=== PATIENT | male | born 1940 | race Caucasian/White ===

== ENCOUNTER → 2017-11-14 08:02 | Outpatient (CLI) | payer MEDICARE, SELFPAY ==
[2017-11-14 11:33] LABS: AST(SGOT) 15 U/L (15-37); Alanine Aminotransfer ALT/SGPT 27 U/L (16-61); Albumin, Serum 4.1 g/dL (3.2-5.0); Alkaline Phosphatase 112 U/L (45-117); Bilirubin, Direct 0.23 mg/dL (0.00-0.30); Cholesterol 122 mg/dL (200); Globulin 2.6 g/dL (2.2-4.2); High Density Lipoprotein 28 mg/dL; Protein, Total 6.7 g/dL (6.4-8.2); Triglycerides 121 mg/dL; Very Low Density Lipoprotein 24 mg/dL (5-40)
== END ==
PROVIDERS: Family Provider Family Medicine; PCP Family Medicine; Visit Provider Physician Assistant Medical
DX: E78.5 Hyperlipidemia, unspecified (principal); Z79.899 Other long term (current) drug therapy
CPT/HCPCS: 36415; 80061; 80076

== ENCOUNTER → 2018-05-26 08:17 | Outpatient (CLI) | payer MEDICARE, SELFPAY ==
[2018-05-26 10:25] LABS: AST(SGOT) 35 U/L (15-37); Alanine Aminotransfer ALT/SGPT 53 U/L (16-61); Albumin, Serum 3.9 g/dL (3.2-5.0); Alkaline Phosphatase 116 U/L (45-117); Bilirubin, Direct 0.24 mg/dL (0.00-0.30); Cholesterol 118 mg/dL (200); Globulin 2.4 g/dL (2.2-4.2); High Density Lipoprotein 23 mg/dL; Protein, Total 6.3 g/dL (6.4-8.2); Triglycerides 126 mg/dL; Very Low Density Lipoprotein 25 mg/dL (5-40)
== END ==
PROVIDERS: Family Provider Family Medicine; PCP Family Medicine; Visit Provider Physician Assistant Medical
DX: E78.5 Hyperlipidemia, unspecified (principal); Z79.899 Other long term (current) drug therapy
CPT/HCPCS: 36415; 80061; 80076

== ENCOUNTER → 2018-11-27 08:02 | Outpatient (CLI) | payer MEDICARE, SELFPAY ==
[2018-11-27 08:02] VITALS: BMI 32.3
[2018-11-27 10:38] LABS: AST(SGOT) 17 U/L (15-37); Alanine Aminotransfer ALT/SGPT 25 U/L (16-61); Alkaline Phosphatase 116 U/L (45-117); Bilirubin, Direct 0.25 mg/dL (0.00-0.30); Cholesterol 101 mg/dL (200); Globulin 2.6 g/dL (2.2-4.2); High Density Lipoprotein 30 mg/dL; Protein, Total 6.6 g/dL (6.4-8.2); Triglycerides 83 mg/dL; Very Low Density Lipoprotein 17 mg/dL (5-40)
== END ==
PROVIDERS: Family Provider Family Medicine; PCP Family Medicine; Referring Provider Physician Assistant Medical; Visit Provider Physician Assistant Medical
DX: E78.5 Hyperlipidemia, unspecified (principal)
CPT/HCPCS: 36415; 80061; 80076

== ENCOUNTER → 2019-07-10 07:29 | Outpatient (CLI) | payer MEDICARE, SELFPAY ==
[2018-12-01 09:18] VITALS: BMI 32.2
[2019-07-10 10:23] LABS: AST(SGOT) 14 U/L (15-37); Alanine Aminotransfer ALT/SGPT 23 U/L (16-61); Albumin, Serum 3.9 g/dL (3.2-5.0); Alkaline Phosphatase 125 U/L (45-117); Bilirubin, Direct 0.31 mg/dL (0.00-0.30); Cholesterol 106 mg/dL (200); Globulin 2.5 g/dL (2.2-4.2); High Density Lipoprotein 32 mg/dL; Protein, Total 6.4 g/dL (6.4-8.2); Triglycerides 115 mg/dL; Very Low Density Lipoprotein 23 mg/dL (5-40)
== END ==
PROVIDERS: Family Provider Family Medicine; PCP Family Medicine; Referring Provider Physician Assistant Medical; Visit Provider Physician Assistant Medical
DX: I25.10 Atherosclerotic heart disease of native coronary artery without angina pectoris (principal); E78.00 Pure hypercholesterolemia, unspecified
CPT/HCPCS: 36415; 80061; 80076

== ENCOUNTER → 2019-08-10 07:34 | Outpatient (CLI) | payer MEDICARE, SELFPAY ==
[2019-07-13 10:43] VITALS: BMI 32.1
--- NOTE | 2019-08-10 07:36 | ECHOCS_ITS ---
Reason For Study: CAD Procedure This was a 2D Doppler, Color Flow transthoracic echocardiogram. The study was technically difficult. Exam performed in department. Left Ventricle Normal LV size. Moderate eccentric left ventricular hypertrophy. The estimated ejection fraction is 55 %. Stage 1 diastolic dysfunction. Segmental dysfunction with preserved ejection fraction (see wall motion). Mid-Inferior: Hypokinetic. Infero-Basal: Hypokinetic. Basal inferoseptal: Hypokinetic. The rest of the wall segments are normal. Right Ventricle Normal RV size. Normal systolic function. Atria The left atrium is mildly enlarged. Normal right atrium. Mitral Valve Normal mitral valve. Mild (1+) eccentric mitral valve insufficiency. Tricuspid Valve The tricuspid valve is not well visualized. Unable to estimate RV systolic pressure due to insufficient tricuspid regurgitant envelope. Pulmonic Valve Normal pulmonic valve. Great Vessels Normal aortic root. The pulmonary artery is normal size. Normal inferior vena cava. Pericardium/Pleural No pericardial effusion. Medication 22 gauge I.V. with prn adaptor inserted into right arm. Diluted definity 4ml given slow IV push to enhance endocardial definition. MMode/2D Measurements & Calculations LVIDd: 4.5 cm IVSd: 1.5 cm Ao root diam: 3.9 cm LVIDs: 3.8 cm LVPWd: 0.82 cm RVDd: 3.5 cm FS: 15.6 % LAV(MOD-bp): 77.3 ml LA A4 area: 23.4 cm2 LA dimension(2D): 3.8 cm LAV(MOD-bp) Indexed: 34.9 ml/m2 LAV(MOD-sp2): 72.1 ml LAV(MOD-sp4): 75.3 ml RA A4 area: 17.0 cm2 Doppler Measurements & Calculations MV E max okry: 78.8 cm/sec Lat Peak E' Kory: 8.0 cm/sec Med Peak E' Kory: 5.6 cm/sec MV A max kory: 91.9 cm/sec E/E' lat: 9.8 E/E' med: 14.0 MV E/A: 0.86 Ao V2 max: 142.5 cm/sec LV V1 max: 107.4 cm/sec PA V2 max: 82.7 cm/sec Ao max P.1 mmHg LV V1 max P.6 mmHg Interpretation Summary Normal LV size. Moderate eccentric left ventricular hypertrophy. The estimated ejection fraction is 55 %. Stage 1 diastolic dysfunction. Segmental dysfunction with preserved ejection fraction (see wall motion). Contrast injection was performed. Compared to prior study, there is no significant change. Ordering Physician: Jose Juan Farooq Referring Physician: Jose Juan Farooq Performed By: Lula Mcdaniels RDCS
== END ==
PROVIDERS: Referring Provider Internal Medicine Cardiovascular Disease; Visit Provider Internal Medicine Cardiovascular Disease
DX: I25.10 Atherosclerotic heart disease of native coronary artery without angina pectoris (principal)
CPT/HCPCS: 93306; Q9957; A4216; C8929

== ENCOUNTER → 2021-03-02 11:19 | Outpatient (CLI) | payer MEDICARE, SELFPAY ==
[2020-12-30 09:16] VITALS: BMI 30.7
--- NOTE | 2021-03-02 11:22 | RAD_ITS ---
STUDY: X-RAY - LEFT SHOULDER REASON FOR EXAM: Male, 80 years old. Shoulder pain. TECHNIQUE: 5 view(s) of the shoulder. COMPARISON: None. FINDINGS: There is severe degenerative arthrosis of the glenohumeral articulation. There is hypertrophic osteoarthrosis of the acromioclavicular joint with inferior osseous spur formation. Normal acromion. There is no acute fracture, dislocation or destructive osseous pathology. There is demineralization of the humerus and visualized osseous structures. The soft tissue structures are unremarkable. Normal visualized pulmonary apex. RAD/Shoulder min 2 Views IMPRESSION: Osteopenia and degenerative changes of the left shoulder. Electronically Signed: Marco Antonio Browne DO at 17:04 EDT Tel [phone], Service support ,
--- NOTE | 2021-03-02 11:25 | RAD_ITS ---
STUDY: X-RAY - RIGHT SHOULDER REASON FOR EXAM: Male, 80 years old. Shoulder pain for 4 months. History of rotator cuff tear. 2010. TECHNIQUE: 4 view(s) of the shoulder. COMPARISON: None. FINDINGS: There is severe degenerative arthrosis of the glenohumeral articulation. There is mild narrowing of the acromiohumeral space. There is degenerative arthrosis of the acromioclavicular joint without inferior osseous spur formation. There is a curved undersurface of the acromion consistent with a Type II morphology. There is no acute fracture, dislocation or destructive osseous pathology. There is demineralization of the humerus and visualized osseous structures. The soft tissue structures are unremarkable. Normal visualized pulmonary apex. RAD/Shoulder min 2 Views IMPRESSION: Degenerative changes of the right shoulder as above. Electronically Signed: Marco Antonio Browne DO at 23:59 EDT Tel [phone], Service support ,
== END ==
PROVIDERS: PCP Family Medicine; Referring Provider Anesthesiology Pain Medicine; Visit Provider Anesthesiology Pain Medicine
DX: M25.511 Pain in right shoulder (principal); M25.512 Pain in left shoulder
CPT/HCPCS: 73030

== ENCOUNTER 2021-10-27 09:53 | Outpatient (CLI) | payer MEDICARE, SELFPAY ==
[2021-10-27 10:46] LABS: Amphetamine Urine VISTA NEGATIVE (<1000 ng/mL); Barbiturate Urine VISTA NEGATIVE (< 200 ng/mL); Benzodiazepine Urine VISTA NEGATIVE (< 200 ng/mL); Cocaine Urine VISTA NEGATIVE (< 300 ng/mL); Ecstacy Urine VISTA NEGATIVE (< 500 ng/mL); Methadone Urine VISTA NEGATIVE (< 300 ng/mL); PCP Urine VISTA NEGATIVE (< 25 ng/mL); THC Urine VISTA NEGATIVE (< 50 ng/mL); Vista UDS pH Range 5
== END 2021-10-27 23:59 | disposition short-term general hospital (02) ==
PROVIDERS: PCP Family Medicine; Referring Provider Anesthesiology Pain Medicine; Visit Provider Anesthesiology Pain Medicine
DX: F11.20 Opioid dependence, uncomplicated (principal)
CPT/HCPCS: 80307

== ENCOUNTER → 2022-02-16 | Outpatient (CLI) | payer MEDICARE, SELFPAY ==
--- NOTE | 2022-02-16 11:00 | RAD_ITS ---
STUDY: X-RAY - THORACIC SPINE REASON FOR EXAM: Male, 81 years old. M5.34 TECHNIQUE: 3 view(s) of the thoracic spine were obtained. COMPARISON: None. FINDINGS: There is an increase in the normal thoracic kyphosis. There is no substantial scoliosis. There is demineralization of the thoracic spine with endplate spondylosis. There is multilevel disc space narrowing of the thoracic spine. The soft tissue structures are unremarkable. RAD/Thoracic Spine 3 Views IMPRESSION: Increased kyphosis. Multilevel disc space narrowing and spondylosis. Electronically Signed: Johnnie Holguin MD at 15:13 EDT ,
== END | disposition home or self-care (01) ==
LOC: RAD 10:49
PROVIDERS: PCP Family Medicine; Referring Provider Anesthesiology Pain Medicine; Visit Provider Anesthesiology Pain Medicine
DX: M54.9 Dorsalgia, unspecified (principal)
CPT/HCPCS: 72072

== ENCOUNTER → 2022-04-09 | Outpatient (CLI) | payer MEDICARE, SELFPAY ==
--- NOTE | 2022-04-09 10:55 | MRI_ITS ---
STUDY: MRI LUMBAR SPINE WITHOUT CONTRAST REASON FOR EXAM: Male, 81 years old. LUMBAR RADICULOPATHY TECHNIQUE: Standardized fat and water weighted pulse sequences were obtained in the sagittal and axial planes. COMPARISON: None FINDINGS: T12-L1: Normal endplates. Normal disc height, hydration and morphology. Normal bilateral facet joints. Normal central canal and bilateral lateral recesses. Normal bilateral intervertebral neural foramina. Normal lumbar lordosis. Mild dextroscoliosis centered at L2/L3. Normal conus medullaris that terminates at the L1/L2. L1-2: Mild bilateral facet hypertrophy and severe ligament flavum hypertrophy. Moderate bilobed disc protrusion produces moderate spinal stenosis with moderate bilateral lateral recess stenosis with abutment of the L2 nerve roots bilaterally and mild bilateral neural foraminal stenosis. L2-3: Mild bilateral facet hypertrophy and moderate ligament flavum hypertrophy. Moderate bilobed disc protrusion produces moderate spinal stenosis with moderate bilateral lateral recess stenosis with abutment of the L3 nerve roots bilaterally and mild bilateral neural foraminal stenosis. L3-4: Severe bilateral facet hypertrophy and ligamentum flavum hypertrophy. Large broad disc protrusion produces severe spinal stenosis with severe bilateral lateral recess stenosis with effacement of the L4 nerve root bilaterally and moderate bilateral neural foraminal stenosis L4-5: Mild bilateral facet hypertrophy and ligament flavum hypertrophy. Large broad disc protrusion produces severe spinal stenosis with severe bilateral lateral recess stenosis with effacement of the L5 nerve roots bilaterally, severe right neural foraminal stenosis with effacement of the right L4 nerve root laterally and mild left neural foraminal stenosis. L5-S1: Mild bilateral facet hypertrophy and ligament flavum hypertrophy. Moderate broad disc protrusion produces moderate spinal stenosis with moderate bilateral lateral recess stenosis with abutment of the S1 nerve roots bilaterally and mild bilateral neural foraminal stenosis. Normal visualized sacral ala. Normal visualized paraspinous soft tissue structures. MRI/Spine Lumbar (Routine) IMPRESSION: Mild dextroscoliosis with degenerative disc disease as described above. Electronically Signed: Prem Hernandez MD at 13:53 EDT ,
== END | disposition home or self-care (01) ==
PROVIDERS: PCP Family Medicine; Referring Provider Anesthesiology Pain Medicine; Visit Provider Anesthesiology Pain Medicine
DX: M54.16 Radiculopathy, lumbar region (principal)
CPT/HCPCS: 72148

== ENCOUNTER → 2023-01-05 | Outpatient (CLI) | payer MEDICARE, SELFPAY ==
[2023-01-05 11:39] LABS: Amphetamine Urine VISTA NEGATIVE (<1000 ng/mL); Barbiturate Urine VISTA NEGATIVE (< 200 ng/mL); Benzodiazepine Urine VISTA NEGATIVE (< 200 ng/mL); Cocaine Urine VISTA NEGATIVE (< 300 ng/mL); Ecstacy Urine VISTA NEGATIVE (< 500 ng/mL); Methadone Urine VISTA NEGATIVE (< 300 ng/mL); PCP Urine VISTA NEGATIVE (< 25 ng/mL); THC Urine VISTA NEGATIVE (< 50 ng/mL); Vista UDS pH Range 5
== END | disposition home or self-care (01) ==
LOC: LAB 10:40
PROVIDERS: PCP Family Medicine; Referring Provider Anesthesiology Pain Medicine; Visit Provider Anesthesiology Pain Medicine
DX: F11.20 Opioid dependence, uncomplicated (principal)
CPT/HCPCS: 80307

== ENCOUNTER → 2023-10-24 | Outpatient (CLI) | payer MEDICARE, SELFPAY ==
[2023-10-24 16:38] LABS: Amphetamine Urine VISTA NEGATIVE (<1000 ng/mL); Barbiturate Urine VISTA NEGATIVE (< 200 ng/mL); Benzodiazepine Urine VISTA NEGATIVE (< 200 ng/mL); Cocaine Urine VISTA NEGATIVE (< 300 ng/mL); Ecstacy Urine VISTA NEGATIVE (< 500 ng/mL); Methadone Urine VISTA NEGATIVE (< 300 ng/mL); PCP Urine VISTA NEGATIVE (< 25 ng/mL); THC Urine VISTA NEGATIVE (< 50 ng/mL); Vista UDS pH Range 5
== END | disposition home or self-care (01) ==
PROVIDERS: PCP Family Medicine; Referring Provider Anesthesiology Pain Medicine; Visit Provider Anesthesiology Pain Medicine
DX: F11.20 Opioid dependence, uncomplicated (principal)
CPT/HCPCS: 80307

== ENCOUNTER 2024-01-11 07:54 | Outpatient (RCR) | payer MEDICARE, SELFPAY ==
[2024-01-11 08:09] VITALS: BP 119/49; PULSE 67; RESP 20; TEMP 35.8; BMI 31.6
--- NOTE | 2024-01-18 10:27 | PCM.WC.HP ---
History of Present Illness Date of Service: 01/11/24 Chief Complaint: Follow-up on buttocks right and left wounds that have been going on for months. 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 He lays on his chair most of the day. And has developed 2 areas on his buttocks sores that have gotten bigger and they have been trying to close for months. Currently there is been using antibiotic ointment. Also has tried Silvadene creams and other things through his doctor Now he has been referred here to the wound center [facility] Medical History Atherosclerotic heart disease of [place] coronary artery without angina pectoris Essential (primary) hypertension Gout HLD (hyperlipidemia) Hyperlipidemia Left ventricular hypertrophy Lymphoid leukemia Obesity Old inferior wall myocardial infarction (2000) Osteoarthritis Thrombocytopenic disorder Type 2 diabetes mellitus Home Medications allopurinol 300 mg tablet 300 mg PO DAILY 09/20/13 [History Last Taken Unknown] aspirin 81 mg chewable tablet 81 mg PO DAILY@0800 09/20/13 [History Last Taken Unknown] lorazepam 1 mg tablet 1 mg PO QHS 09/20/13 [History Last Taken Unknown] meloxicam 15 mg tablet 15 mg PO DAILY 09/20/13 [History Last Taken Unknown] multivitamin with folic acid 400 mcg tablet 1 tab PO DAILY 09/20/13 [History Last Taken Unknown] pyridoxine (vitamin B6) 100 mg tablet 100 mg PO DAILY 09/20/13 [History Last Taken Unknown] tramadol 50 mg tablet 50 mg PO Q4H PRN PRN Pain 09/20/13 [History Last Taken Unknown] famotidine 20 mg tablet (Acid Interactive Media Project Manager (famotidine)) 20 mg PO DAILY 12/01/18 [History Last Taken Unknown] ibrutinib 420 mg tablet (Imbruvica) 420 mg PO DAILY 12/01/18 [History Last Taken Unknown] loratadine 10 mg capsule 10 mg PO DAILY 12/01/18 [History Last Taken Unknown] cholecalciferol (vitamin D3) 25 mcg (1,000 unit) tablet 25 mcg PO DAILY 12/30/20 [History Last Taken Unknown] metformin 500 mg tablet,extended release 24 hr 500 mg PO BID 12/30/20 [History Last Taken Unknown] gabapentin 600 mg tablet 600 mg PO TID 07/13/22 [History Last Taken Unknown] lisinopril 10 mg tablet 10 mg PO DAILY #90 tabs 11/03/23 [Rx Last Taken Unknown] metoprolol succinate 25 mg tablet,extended release 24 hr 25 mg PO DAILY #90 tabs 11/03/23 [Rx Last Taken Unknown] nitroglycerin 0.4 mg sublingual tablet 0.4 mg sublingual Q5M PRN chest pain #25 tabs 11/03/23 [Rx Last Taken Unknown] simvastatin 20 mg tablet 20 mg PO DAILY #90 tabs 11/03/23 [Rx Last Taken Unknown] tamsulosin 0.4 mg capsule (Flomax) 0.4 mg PO DAILY 01/11/24 [History Last Taken Unknown] Allergy/AdvReac Type Severity Reaction Status Date / Time niacin Allergy Unknown Verified 11/03/23 09:58 [From Niaspan Extended-Release] Sulfa (Sulfonamide AdvReac Swelling Verified 11/03/23 09:58 Antibiotics) Family History Father Cancer lymphoma Myocardial infarction CAD (coronary artery disease) Mother CVA (cerebral vascular accident) Cancer HLD (hyperlipidemia) Hypertension Brother Myocardial infarction CAD (coronary artery disease) Sister Breast cancer Surgical History H/O arthroscopic knee surgery History of coronary artery stent placement (05/13/10) History of lithotripsy History of repair of rotator cuff Social History Smoking Status: Never smoker alcohol intake: former substance use type: does not use caffeine: No what type of physical activity do you participate in: none seatbelt use: always do you feel safe at home: Yes ROS Constitutional Constitutional: Reports systems reviewed and no addt'l complaints, except as documented Eyes Eyes: Reports systems reviewed and no addt'l complaints, except as documented ENT HEENT: Reports systems reviewed and no addt'l complaints, except as documented Cardiovascular Cardiovascular: Reports systems reviewed and no addt'l complaints, except as documented Respiratory/Chest Respiratory/Chest: Reports systems reviewed and no addt'l complaints, except as documented Gastrointestinal Gastrointestinal: Reports systems reviewed and no addt'l complaints, except as documented Genitourinary Genitourinary: Reports systems reviewed and no addt'l complaints, except as documented Musculoskeletal Musculoskeletal: Reports systems reviewed and no addt'l complaints, except as documented Integumentary Integumentary: Reports wounds and other Details: 2 open wounds [id number] on his lower buttocks sacral area. Neurologic Neurologic: Reports systems reviewed and no addt'l complaints, except as documented Psychiatric Psychiatric: Reports systems reviewed and no addt'l complaints, except as documented Endocrine Endocrinology: Reports systems reviewed and no addt'l complaints, except as documented Hematologic/Lymphatic Hematologic/Lymphatic: Reports systems reviewed and no addt'l complaints, except as documented Allergic/Immunologic Allergic/Immunologic: Reports systems reviewed and no addt'l complaints, except as documented Vital Signs Vital Signs Vital Signs: Weight Weight: 220 lb 0.271 oz Body Mass Index (BMI) 31.6 Physical Exam Const oriented x3 General Appearance: cooperative Exam Limitations: no limitations HEENT normocephalic Eyes General Eye: normal appearance of both eyes Resp normal respiratory effort Effort and Inspection: able to speak in complete sentences Auscultation: clear to auscultation bilaterally Cardio regular rate and regular rhythm Palpation: normal PMI Rate: regular rate Rhythm: regular rhythm Back/Spine Cervical Spine: cervical ROM normal Thoracic Spine / Upper Back: normal to inspection Lumbar Spine / Lower Back: normal to inspection Pelvis: buttocks abnormal and other soft tissue findings Open wounds bilateral buttocks Extremity normal to inspection General Extremity: normal exam except as noted Skin Skin Narrative: Open wounds on buttocks clean well marcated Wound Narrative: Stage II Neuro oriented x3 Debridement Note Debridement Note Wound debrided: Sacral wounds cluster Wound Grade/Stage: Stage II Type of Debridement: Excisional debridement Anesthesia Used: 5% Lidocaine Gel and Cetacaine Depth: Down to and including healthy tissue and in the subcutaneous layer Percentage of wound debrided: 100 Instrument Used: 5mm curette Tissue Removed: Fibrin Severity: Fat Layer Exposed Amount of bleeding with debridement: Mild Bleeding Controlled with: Compression and gauze Patient tolerated procedure: Patient tolerated procedure well Assessment/Plan Assessment/Plan (1) Mobility impaired: CODE(S): Z74.09 - Other reduced mobility (2) Decubitus ulcer of buttock, stage 2: CODE(S): L89.302 - Pressure ulcer of unspecified buttock, stage 2 QUALIFIERS: Laterality: unspecified laterality Qualified Code(s): L89.302 - Pressure ulcer of unspecified buttock, stage 2 PLAN: Wash buttocks with antibacterial soap. Apply Fibracol to wound base cover with Adaptic and absorbent dressing every day Follow-up in 1 week (3) Type 2 diabetes mellitus: CODE(S): E11.9 - Type 2 diabetes mellitus without complications QUALIFIERS: Diabetes mellitus intermediate accountant insulin use: without halfway use Diabetes mellitus complication status: with circulatory complication Diabetes mellitus complication detail: with other circulatory complications Qualified Code(s): E11.59 - Type 2 diabetes mellitus with other circulatory complications (4) Lymphoid leukemia: CODE(S): C91.90 - Lymphoid leukemia, 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 QUALIFIERS: Lymphoid leukemia type: unspecified lymphoid Leukemia Active/Remission status: without remission Qualified Code(s): C91.90 - Lymphoid leukemia, 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
--- NOTE | 2024-01-18 11:04 | PN.PCM_ITS ---
History of Present Illness Date of Service: 01/18/24 Chief Complaint: Follow-up on buttocks right and left wounds that have been going on for months. 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 He lays on his ch air most of the day. And has developed 2 areas on his buttocks sores that have gotten bigger and they have been trying to close for months. Currently there is been using antibiotic ointment. Also has tried Silvadene creams and other things through his doctor Now he has been referred here to the wound center Progress of Wound: The areas on the buttocks are about the same is complaining she is having a hard time getting the absorbent dressings to stay. No sign of infections no sign of any issues. We will obtain cultures today to make sure that were not missing anything that is stopping healing. Skin surrounding the area is supple and of normal color no sign of infections Subjective Subjective Agreeable to plan we will try to find a better sticking agent for the dressing Objective Data Objective Data Will try a better sticking agent for dressings otherwise patient will continue with the Fibracol seems to be working well for them have them follow-up in 1 week Obtain cultures this week we will call with results Vital Signs: Vital Signs Temp Pulse Resp BP 96.5 F L 67 20 H 119/49 L 01/11/24 08:09 01/11/24 08:09 01/11/24 08:09 01/11/24 08:09 Weight: 220 lb 0.271 oz Body Mass Index (BMI) 31.6 Physical Exam Const oriented x3 General Appearance: cooperative Exam Limitations: no limitations HEENT normocephalic Eyes General Eye: normal appearance of both eyes Resp normal respiratory effort Effort and Inspection: able to speak in complete sentences Auscultation: clear to auscultation bilaterally Cardio regular rate and regular rhythm Palpation: normal PMI Rate: regular rate Rhythm: regular rhythm Back/Spine Cervical Spine: cervical ROM normal Thoracic Spine / Upper Back: normal to inspection Lumbar Spine / Lower Back: normal to inspection Pelvis: buttocks abnormal and other soft tissue findings Open wounds bilateral buttocks Extremity normal to inspection General Extremity: normal exam except as noted Skin Skin Narrative: Open wounds on buttocks clean well marcated Wound Narrative: Stage II Neuro oriented x3 Debridement Note Debridement Note Wound debrided: Cluster buttocks sacral stage II wounds Wound Grade/Stage: Stage II Type of Debridement: Excisional debridement Anesthesia Used: 5% Lidocaine Gel Depth: in the subcutaneous layer Percentage of wound debrided: 100 Instrument Used: 5mm curette Tissue Removed: Fibrin Severity: Limited To Skin Breakdown Amount of bleeding with debridement: Mild Bleeding Controlled with: Compression and gauze Patient tolerated procedure: Patient tolerated procedure well Assessment/Plan Assessment/Plan (1) Mobility impaired: CODE(S): Z74.09 - Other reduced mobility (2) Decubitus ulcer of buttock, stage 2: CODE(S): L89.302 - Pressure ulcer of unspecified buttock, stage 2 QUALIFIERS: Laterality: unspecified laterality Qualified Code(s): L89.302 - Pressure ulcer of unspecified buttock, stage 2 PLAN: Wash buttocks with antibacterial soap. Apply Fibracol to wound base cover with Adaptic and absorbent dressing every day Follow-up in 1 week Cultures obtained will call with results (3) Type 2 diabetes mellitus: CODE(S): E11.9 - Type 2 diabetes mellitus without complications QUALIFIERS: Diabetes mellitus long term acute care registered nurse insulin use: without fci use Diabetes mellitus complication status: with circulatory complication Diabetes mellitus complication detail: with other circulatory complications Qualified Code(s): E11.59 - Type 2 diabetes mellitus with other circulatory complications (4) Lymphoid leukemia: CODE(S): C91.90 - Lymphoid leukemia, 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 QUALIFIERS: Lymphoid leukemia type: unspecified lymphoid Leukemia Active/Remission status: without remission Qualified Code(s): C91.90 - Lymphoid leukemia, 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
--- NOTE | 2024-01-20 11:16 | WC ---
3.27.24 SACRAL CLUSTER INITIAL
== END 2024-01-15 23:59 | disposition home or self-care (01) ==
LOC: WC 07:54
PROVIDERS: PCP Family Medicine; Referring Provider Family Medicine; Visit Provider Nurse Practitioner
DX: L89.312 Pressure ulcer of right buttock, stage 2 (principal); L89.322 Pressure ulcer of left buttock, stage 2; C91.90 Lymphoid leukemia, unspecified not having achieved remission; E11.51 Type 2 diabetes mellitus with diabetic peripheral angiopathy without gangrene; E78.5 Hyperlipidemia, unspecified; I25.10 Atherosclerotic heart disease of native coronary artery without angina pectoris; M10.9 Gout, unspecified; Z79.84 Long term (current) use of oral hypoglycemic drugs; I10 Essential (primary) hypertension; Z79.82 Long term (current) use of aspirin; Z79.899 Other long term (current) drug therapy
CPT/HCPCS: 11042; 99203; G0463

== ENCOUNTER 2024-02-08 09:45 | Outpatient (RCR) | payer MEDICARE, SELFPAY ==
[2024-01-16 00:52] VITALS: BP 119/49; PULSE 67; RESP 20; TEMP 35.8; BMI 31.6
[2024-01-18 09:37] VITALS: BP 128/55; PULSE 73; RESP 20; TEMP 36.4; BMI 31.6
--- NOTE | 2024-01-18 10:22 | PN.PCM_ITS ---
History of Present Illness Date of Service: 01/18/24 Objective Data Objective Data Vital Signs: Vital Signs Temp Pulse Resp BP 97.6 F L 73 20 H 128/55 H 01/18/24 09:37 01/18/24 09:37 01/18/24 09:37 01/18/24 09:37 Weight: 220 lb 0.271 oz Body Mass Index (BMI) 31.6 Debridement Note Debridement Note Post-Debridement Measurements and Additional Note: Post-Debridement Measurements/Treatment WC - Nurse 1 - General Ulcer Assessment Start: 01/18/24 09:37 Freq: Status: Active Protocol: CHEL Activity Type Activity Date Activity User E-sign Co-sign Detail Recorded Client Recorded Date Recorded By Document 01/18/24 09:37 DL Desktop 01/18/24 09:43 DL 01/18/24 09:37 WC - Today's Visit Information Type of service Follow-up Visit (Physician/BLOW DOWN OPERATOR ) Arrival Mode Wheelchair Transfer Assistance Manual Transfer Assist (Other) x2 Patient Identification Verified (Name & Yes ) Patient Requires Transmission-Based No Precautions Finger Stick Blood Sugar(mg/dl) (if 90 indicated): Blood Sugar Stated by Patient Height and Weight Body Mass Index (BMI) 31.6 BMI Classification Obese Vital Signs Temperature (97.8 F-99.1 F) 97.6 F L Temperature Source Temporal Pulse Rate (60-100) 73 Pulse Location Monitor Respiratory Rate (12-18) 20 H Respiratory rate source Observation Blood Pressure (90/60-120/80) 128/55 H Blood Pressure Mean (mm Hg) 79 Source Monitor History Since Last Visit- (Skip if this is Patient's initial visit) Have you changed medications since your No last visit? Any new allergies or adverse reactions No Had a fall/change in ADL's that may No increase risk of falls Signs or symptoms of abuse and/or No neglect since last visit Have you been in the hospital since your No last visit? Has dressing in place as prescribed Yes Has compression in place as prescribed N/A Has offloadiing in place as prescribed Yes Experienced any changes in pain level or No management Pain Scale: 0-10 Numeric Is Patient Pain Free? Yes - Nurse 1 - General Ulcer Measurement Start: 01/18/24 09:37 Freq: Status: Active Protocol: Activity Type Activity Date Activity User E-sign Co-sign Detail Recorded Client Recorded Date Recorded By Document 01/18/24 09:37 DL Desktop 01/18/24 09:43 DL 01/18/24 09:37 Wound Center Nurse 1 #1 Sacral Cluster -Current Size (cm) - Length 1.7 -Current Size (cm) - Width 3.6 -Current Size (cm) - Depth 0.1 -Total Square Cm 6.12 -Photo Taken Yes -Exudate Amt Medium -Exudate Type Serosanguineous -Wound Margin Distinct, Outline Attached -Granulation Amt Large (67-100%) -Granulation Quality [place] -Necrosis Amt None Present (0 %) -Structure Exposed N/A -Texture (Andreea-wound Skin Appearance) Scarring -Moisture (Andreea-wound Skin Appearance) No Abnormality -Color (Andreea-wound Skin Appearance) No Abnormality -Temperature (Andreea-wound Skin No Abnormality Appearance) (Pt Warm) -Ulcer Cleansing Soap and Water -Foul Odor after Cleansing No -Anesthetic Used 5% Lidocaine Gel WC - Nurse 2 - General Ulcer CM Notes Start: 01/18/24 09:37 Freq: Status: Active Protocol: Activity Type Activity Date Activity User E-sign Co-sign Detail Recorded Client Recorded Date Recorded By Document 01/18/24 09:47 MW Desktop 01/18/24 09:55 MW 01/18/24 09:47 Wound Center Nurse 2 -Time 09:47 -Correct Patient Yes -Correct Side, Site, Position Yes -Correct Procedure Yes -Procedure Performed Yes -Type of Procedure Debridement -Clinical Debridement Subcutaneous -Tissue Removed Subcutaneous -Post Debridement (cm) - Length 1.5 -Post Debridement (cm) - Width 4.0 -Post Debridement (cm) - Depth 0.1 -Total Square (Post) (cm) 6.00 -Area of Debridement (cm) - Length 1.5 -Area of Debridement (cm) - Width 4.0 -Total Square (Area) (cm) 6.00 -Tunneling No -Undermining/Tunneling No -Circular Undermining No -Wound/Ulcer Outcome Not Healed -Ulcer Cleansing Rinsed/ Irrigated with Saline -Foul Odor after Cleansing No -Bioengineered Tissue No -Bleeding Controlled with Pressure -Treatment Response Procedure Tolerated Well -Offloading No -Debridement - Subq, 1st 20sq cm Yes Pain Scale: 0-10 Numeric Is Patient Pain Free? Yes
[2024-01-25 09:33] VITALS: BP 126/58; PULSE 65; RESP 16; TEMP 35.5; BMI 31.6
--- NOTE | 2024-01-25 12:13 | PCM.WC.PN ---
History of Present Illness Date of Service: 01/25/24 Chief Complaint: Follow-up on buttocks right and left wounds that have been going on for months. 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 He lays on his chair most of the day. And has developed 2 areas on his buttocks sores that have gotten bigger and they have been trying to close for months. Currently there is been using antibiotic ointment. Also has tried Silvadene creams and other things through his doctor Now he has been referred here to the wound center Progress of Wound: The buttocks wounds or not moving we cultured and they came back positive for staph infection we will start him on Maurice avoid twice a day for 14 days. Will continue using the Fibracol with Adaptic and absorbent dressings Subjective Subjective Patient is agreeable to plan Objective Data Objective Data Some redness around the area but no depth to the wounds measurements are the same exactly from last week no real change in appearance. Vital Signs: Vital Signs Temp Pulse Resp BP O2 Del Method 96 F L 65 16 126/58 H Room Air 01/25/24 09:33 01/25/24 09:33 01/25/24 09:33 01/25/24 09:33 01/25/24 09:33 Oxygen Delivery Method Room Air Weight: 220 lb 0.271 oz Body Mass Index (BMI) 31.6 Lab / Micro Data Attestation: I reviewed the patient's lab results. Micro: Microbiology 01/18/24 09:50 Wound Abcess - Sacral Gram Stain - Final 01/18/24 09:50 Wound Abcess - Sacral Wound Culture - Final Staphylococcus epidermidis 01/18/24 09:50 Wound Abcess - Sacral Anaerobic Culture - Final No anaerobic bacteria isolated. Physical Exam Const oriented x3 General Appearance: cooperative Exam Limitations: no limitations HEENT normocephalic Eyes General Eye: normal appearance of both eyes Resp normal respiratory effort Effort and Inspection: able to speak in complete sentences Auscultation: clear to auscultation bilaterally Cardio regular rate and regular rhythm Palpation: normal PMI Rate: regular rate Rhythm: regular rhythm Back/Spine Cervical Spine: cervical ROM normal Thoracic Spine / Upper Back: normal to inspection Lumbar Spine / Lower Back: normal to inspection Pelvis: buttocks abnormal and other soft tissue findings Open wounds bilateral buttocks Extremity normal to inspection General Extremity: normal exam except as noted Skin Skin Narrative: Open wounds on buttocks clean well marcated Wound Narrative: Stage II Neuro oriented x3 Debridement Note Debridement Note Wound debrided: Cluster buttocks sacral stage II wounds Wound Grade/Stage: Stage II Type of Debridement: Excisional debridement Anesthesia Used: 5% Lidocaine Gel Depth: in the subcutaneous layer Percentage of wound debrided: 100 Instrument Used: 5mm curette Tissue Removed: Fibrin Severity: Limited To Skin Breakdown Amount of bleeding with debridement: Mild Bleeding Controlled with: Compression and gauze Patient tolerated procedure: Patient tolerated procedure well Post-Debridement Measurements and Additional Note: Post-Debridement Measurements/Treatment - Nurse 1 - General Ulcer Assessment Start: 01/18/24 09:37 Freq: Status: Active Protocol: CHEL Activity Type Activity Date Activity User E-sign Co-sign Detail Recorded Client Recorded Date Recorded By Document 01/18/24 09:37 DL Desktop 01/18/24 09:43 DL Document 01/25/24 09:33 BMF Desktop 01/25/24 09:39 BMF 01/18/24 01/25/24 09:37 09:33 - Today's Visit Information Type of service Follow-up Visit Follow-up Visit (Physician/CAPACITOR PACK PRESS OPERATOR (Physician/CAPACITOR PACK PRESS OPERATOR ) ) Arrival Mode Wheelchair Wheelchair Transfer Assistance Manual Other Transfer Assist (Other) x2 1 STAND BY Patient Identification Verified (Name & Yes Yes ) Patient Requires Transmission-Based No No Precautions Finger Stick Blood Sugar(mg/dl) (if 90 indicated): Blood Sugar Stated by Patient Height and Weight Body Mass Index (BMI) 31.6 31.6 BMI Classification Obese Obese Vital Signs Temperature (97.8 F-99.1 F) 97.6 F L 96 F L Temperature Source Temporal Temporal Pulse Rate (60-100) 73 65 Pulse Location Monitor Monitor Respiratory Rate (12-18) 20 H 16 Respiratory rate source Observation Observation Oxygen Delivery Method Room Air Blood Pressure (90/60-120/80) 128/55 H 126/58 H Blood Pressure Mean (mm Hg) 79 80 Source Monitor Monitor Position Sitting Blood Pressure Location Left Arm History Since Last Visit- (Skip if this is Patient's initial visit) Have you changed medications since your No No last visit? Any new allergies or adverse reactions No No Had a fall/change in ADL's that may No No increase risk of falls Signs or symptoms of abuse and/or No No neglect since last visit Have you been in the hospital since your No No last visit? Has dressing in place as prescribed Yes Yes Has compression in place as prescribed N/A N/A Has offloadiing in place as prescribed Yes N/A Experienced any changes in pain level or No No management Left Footwear Regular Shoe Right Footwear Regular Shoe Pain Scale: 0-10 Numeric Is Patient Pain Free? Yes Yes WC - Nurse 1 - General Ulcer Measurement Start: 01/18/24 09:37 Freq: Status: Active Protocol: Activity Type Activity Date Activity User E-sign Co-sign Detail Recorded Client Recorded Date Recorded By Document 01/18/24 09:37 DL Desktop 01/18/24 09:43 DL Document 01/25/24 09:33 BMF Desktop 01/25/24 09:39 BMF 01/18/24 01/25/24 09:37 09:33 Wound Center Nurse 1 #1 Sacral Cluster -Current Size (cm) - Length 1.7 2.2 -Current Size (cm) - Width 3.6 2.2 -Current Size (cm) - Depth 0.1 0.1 -Total Square Cm 6.12 4.84 -Photo Taken Yes -Exudate Amt Medium Small -Exudate Type Serosanguineous Serosanguineous -Wound Margin Distinct, Distinct, Outline Outline Attached Attached -Granulation Amt Large (67-100%) Large (67-100%) -Granulation Quality [place] Red -Necrosis Amt None Present (0 Small (1-33%) %) -Necrotic Tissue Type Adherent Slough -Structure Exposed N/A -Texture (Andreea-wound Skin Appearance) Scarring Assessed -Moisture (Andreea-wound Skin Appearance) No Abnormality Assessed -Color (Andreea-wound Skin Appearance) No Abnormality Assessed -Temperature (Andreea-wound Skin No Abnormality No Abnormality Appearance) (Pt Warm) (Pt Warm) -Tenderness on Palpation (Andreea-wound No Skin Appearance) -Ulcer Cleansing Soap and Water Rinsed/ Irrigated with Saline -Foul Odor after Cleansing No No -Anesthetic Used 5% Lidocaine 5% Lidocaine Gel Gel SHAYLA - Nurse 2 - General Ulcer CM Notes Start: 01/18/24 09:37 Freq: Status: Active Protocol: Activity Type Activity Date Activity User E-sign Co-sign Detail Recorded Client Recorded Date Recorded By Document 01/18/24 09:47 MW Desktop 01/18/24 09:55 MW Document 01/25/24 09:56 MW Desktop 01/25/24 10:02 MW 01/18/24 01/25/24 09:47 09:56 Wound Center Nurse 2 #1 Sacral Cluster -Time 09:47 09:56 -Correct Patient Yes Yes -Correct Side, Site, Position Yes Yes -Correct Procedure Yes Yes -Procedure Performed Yes Yes -Type of Procedure Debridement Debridement -Clinical Debridement Subcutaneous Subcutaneous -Tissue Removed Subcutaneous Subcutaneous -Post Debridement (cm) - Length 1.5 1.5 -Post Debridement (cm) - Width 4.0 3.8 -Post Debridement (cm) - Depth 0.1 0.1 -Total Square (Post) (cm) 6.00 5.70 -Area of Debridement (cm) - Length 1.5 1.5 -Area of Debridement (cm) - Width 4.0 3.8 -Total Square (Area) (cm) 6.00 5.70 -Tunneling No No -Undermining/Tunneling No No -Circular Undermining No No -Wound/Ulcer Outcome Not Healed Not Healed -Ulcer Cleansing Rinsed/ Rinsed/ Irrigated with Irrigated with Saline Saline -Foul Odor after Cleansing No No -Bioengineered Tissue No No -Bleeding Controlled with Pressure Pressure -Treatment Response Procedure Procedure Tolerated Well Tolerated Well -Offloading No No -Debridement - Subq, 1st 20sq cm Yes Yes Pain Scale: 0-10 Numeric Is Patient Pain Free? Yes Yes - Nurse 3 - General Ulcer D/C NN Start: 01/18/24 09:37 Freq: Status: Active Protocol: Activity Type Activity Date Activity User E-sign Co-sign Detail Recorded Client Recorded Date Recorded By Document 01/25/24 10:07 [facility] Desktop 01/25/24 10:08 [facility] 01/25/24 10:07 Wound Care Center Nurse 3 #1 Sacral Cluster -Ulcer Cleansing Rinsed/ Irrigated with Saline -Foul Odor after Cleansing No -Primary Dressing Applied Fibracol Plus 4x4,Mepilex Border -Fibracol Plus 4x4 1 -Mepilex Border 1 Treatment Response Procedure Tolerated Well Pain Scale: 0-10 Numeric Is Patient Pain Free? Yes WC - Visit Discharge Discharge Condition Stable Ambulatory Status Wheelchair Transportation Private Auto Accompanied by DROPPED OFF Assessment/Plan Assessment/Plan (1) Mobility impaired: CODE(S): Z74.09 - Other reduced mobility (2) Decubitus ulcer of buttock, stage 2: CODE(S): L89.302 - Pressure ulcer of unspecified buttock, stage 2 QUALIFIERS: Laterality: unspecified laterality Qualified Code(s): L89.302 - Pressure ulcer of unspecified buttock, stage 2 PLAN: Wash buttocks with antibacterial soap. Apply Fibracol to wound base cover with Adaptic and absorbent dressing every day Follow-up in 1 week Take linezolid 600 mg 1 p.o. 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
[2024-02-01 09:54] VITALS: BP 121/59; PULSE 66; RESP 16; TEMP 35.7; BMI 31.6
--- NOTE | 2024-02-01 10:20 | PCM.WC.PN ---
History of Present Illness Date of Service: 02/01/24 Chief Complaint: Follow-up on buttocks right and left wounds that have been going on for months. 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 He lays on his chair most of the day. And has developed 2 areas on his buttocks sores that have gotten bigger and they have been trying to close for months. Currently there is been using antibiotic ointment. Also has tried Silvadene creams and other things through his doctor Now he has been referred here to the wound center Progress of Wound: The buttocks wounds or not moving we cultured and they came back positive for staph infection we will start him on Linsolide avoid twice a day for 14 days. Will continue using the Fibracol with Adaptic and absorbent dressings Subjective Subjective Finally getting skin buds looking good patient agreeable with plan so his Objective Data Objective Data Area is much smaller and getting skin buds looks clean still on his antibiotic nursing home through hoping that he will amount next couple weeks. Vital Signs: Vital Signs Temp Pulse Resp BP O2 Del Method 96.3 F L 66 16 121/59 H Room Air 02/01/24 09:54 02/01/24 09:54 02/01/24 09:54 02/01/24 09:54 02/01/24 09:54 Oxygen Delivery Method Room Air Weight: 220 lb 0.271 oz Body Mass Index (BMI) 31.6 Lab / Micro Data Micro: Microbiology 01/18/24 09:50 Wound Abcess - Sacral Gram Stain - Final 01/18/24 09:50 Wound Abcess - Sacral Wound Culture - Final Staphylococcus epidermidis 01/18/24 09:50 Wound Abcess - Sacral Anaerobic Culture - Final No anaerobic bacteria isolated. Physical Exam Const oriented x3 General Appearance: cooperative Exam Limitations: no limitations HEENT normocephalic Eyes General Eye: normal appearance of both eyes Resp normal respiratory effort Effort and Inspection: able to speak in complete sentences Auscultation: clear to auscultation bilaterally Cardio regular rate and regular rhythm Palpation: normal PMI Rate: regular rate Rhythm: regular rhythm Back/Spine Cervical Spine: cervical ROM normal Thoracic Spine / Upper Back: normal to inspection Lumbar Spine / Lower Back: normal to inspection Pelvis: buttocks abnormal and other soft tissue findings Open wounds bilateral buttocks Extremity normal to inspection General Extremity: normal exam except as noted Skin Skin Narrative: Open wounds on buttocks clean well marcated Wound Narrative: Stage II Neuro oriented x3 Debridement Note Debridement Note Wound debrided: Cluster buttocks sacral stage II wounds Wound Grade/Stage: Stage II Type of Debridement: Excisional debridement Anesthesia Used: 5% Lidocaine Gel Depth: in the subcutaneous layer Percentage of wound debrided: 100 Instrument Used: 5mm curette Tissue Removed: Fibrin Severity: Limited To Skin Breakdown Amount of bleeding with debridement: Mild Bleeding Controlled with: Compression and gauze Patient tolerated procedure: Patient tolerated procedure well Post-Debridement Measurements and Additional Note: Post-Debridement Measurements/Treatment - Nurse 1 - General Ulcer Assessment Start: 01/18/24 09:37 Freq: Status: Active Protocol: CHEL Activity Type Activity Date Activity User E-sign Co-sign Detail Recorded Client Recorded Date Recorded By Document 01/18/24 09:37 DL Desktop 01/18/24 09:43 DL Document 01/25/24 09:33 BMF Desktop 01/25/24 09:39 BMF Document 02/01/24 09:54 BMF Desktop 02/01/24 10:00 BMF 01/18/24 01/25/24 02/01/24 09:37 09:33 09:54 - Today's Visit Information Type of service Follow-up Visit Follow-up Visit Follow-up Visit (Physician/AIRCRAFT DETAIL DRAFTSPERSON (Physician/AIRCRAFT DETAIL DRAFTSPERSON (Physician/AIRCRAFT DETAIL DRAFTSPERSON ) ) ) Arrival Mode Wheelchair Wheelchair Wheelchair Transfer Assistance Manual Other Other Transfer Assist (Other) x2 1 STAND BY standby Accompanied by Patient Identification Verified (Name & Yes Yes Yes ) Patient Requires Transmission-Based No No No Precautions Finger Stick Blood Sugar(mg/dl) (if 90 indicated): Blood Sugar Stated by Patient Height and Weight Body Mass Index (BMI) 31.6 31.6 31.6 BMI Classification Obese Obese Obese Vital Signs Temperature (97.8 F-99.1 F) 97.6 F L 96 F L 96.3 F L Temperature Source Temporal Temporal Temporal Pulse Rate (60-100) 73 65 66 Pulse Location Monitor Monitor Monitor Respiratory Rate (12-18) 20 H 16 16 Respiratory rate source Observation Observation Observation Oxygen Delivery Method Room Air Room Air Blood Pressure (90/60-120/80) 128/55 H 126/58 H 121/59 H Blood Pressure Mean (mm Hg) 79 80 79 Source Monitor Monitor Monitor Position Sitting Sitting Blood Pressure Location Left Arm Right Arm History Since Last Visit- (Skip if this is Patient's initial visit) Have you changed medications since your No No No last visit? Any new allergies or adverse reactions No No No Had a fall/change in ADL's that may No No No increase risk of falls Signs or symptoms of abuse and/or No No No neglect since last visit Have you been in the hospital since your No No No last visit? Has dressing in place as prescribed Yes Yes Yes Has compression in place as prescribed N/A N/A N/A Has offloadiing in place as prescribed Yes N/A N/A Experienced any changes in pain level or No No No management Left Footwear Regular Shoe Diabetic Shoe Right Footwear Regular Shoe Diabetic Shoe Pain Scale: 0-10 Numeric Is Patient Pain Free? Yes Yes Yes WC - Nurse 1 - General Ulcer Measurement Start: 01/18/24 09:37 Freq: Status: Active Protocol: Activity Type Activity Date Activity User E-sign Co-sign Detail Recorded Client Recorded Date Recorded By Document 01/18/24 09:37 DL Desktop 01/18/24 09:43 DL Document 01/25/24 09:33 BMF Desktop 01/25/24 09:39 BMF Document 02/01/24 09:54 BMF Desktop 02/01/24 10:00 BMF 01/18/24 01/25/24 02/01/24 09:37 09:33 09:54 Wound Center Nurse 1 #1 Sacral Cluster -Combined with other wound No -Current Size (cm) - Length 1.7 2.2 1.2 -Current Size (cm) - Width 3.6 2.2 3 -Current Size (cm) - Depth 0.1 0.1 0.1 -Total Square Cm 6.12 4.84 3.6 -Photo Taken Yes No -Epithelialization Small 1-33% -Tunneling No -Undermining/Tunneling No -Circular Undermining No -Exudate Amt Medium Small Medium -Exudate Type Serosanguineous Serosanguineous Serosanguineous -Wound Margin Distinct, Distinct, Distinct, Outline Outline Outline Attached Attached Attached -Granulation Amt Large (67-100%) Large (67-100%) Large (67-100%) -Granulation Quality [place] Red Pale,Red -Slough/Fibrin No -Necrosis Amt None Present (0 Small (1-33%) None Present (0 %) %) -Necrotic Tissue Type Adherent Slough -Structure Exposed N/A -Texture (Andreea-wound Skin Appearance) Scarring Assessed Assessed, Scarring -Moisture (Andreea-wound Skin Appearance) No Abnormality Assessed Assessed -Color (Andreea-wound Skin Appearance) No Abnormality Assessed Assessed, Erythema -Temperature (Andreea-wound Skin No Abnormality No Abnormality No Abnormality Appearance) (Pt Warm) (Pt Warm) (Pt Warm) -Tenderness on Palpation (Andreea-wound No No Skin Appearance) -Ulcer Cleansing Soap and Water Rinsed/ Rinsed/ Irrigated with Irrigated with Saline Saline -Foul Odor after Cleansing No No No -Anesthetic Used 5% Lidocaine 5% Lidocaine 5% Lidocaine Gel Gel Gel WC - Nurse 2 - General Ulcer CM Notes Start: 01/18/24 09:37 Freq: Status: Active Protocol: Activity Type Activity Date Activity User E-sign Co-sign Detail Recorded Client Recorded Date Recorded By Document 01/18/24 09:47 MW Desktop 01/18/24 09:55 MW Document 01/25/24 09:56 MW Desktop 01/25/24 10:02 MW Document 02/01/24 10:05 MW Desktop 02/01/24 10:06 MW 01/18/24 01/25/24 02/01/24 09:47 09:56 10:05 Wound Center Nurse 2 #1 Sacral Cluster -Time 09:47 09:56 10:05 -Correct Patient Yes Yes Yes -Correct Side, Site, Position Yes Yes Yes -Correct Procedure Yes Yes Yes -Procedure Performed Yes Yes Yes -Type of Procedure Debridement Debridement Debridement -Clinical Debridement Subcutaneous Subcutaneous Subcutaneous -Tissue Removed Subcutaneous Subcutaneous Subcutaneous -Post Debridement (cm) - Length 1.5 1.5 1.0 -Post Debridement (cm) - Width 4.0 3.8 2.5 -Post Debridement (cm) - Depth 0.1 0.1 0.1 -Total Square (Post) (cm) 6.00 5.70 2.50 -Area of Debridement (cm) - Length 1.5 1.5 1.0 -Area of Debridement (cm) - Width 4.0 3.8 2.5 -Total Square (Area) (cm) 6.00 5.70 2.50 -Tunneling No No No -Undermining/Tunneling No No No -Circular Undermining No No No -Wound/Ulcer Outcome Not Healed Not Healed Not Healed -Ulcer Cleansing Rinsed/ Rinsed/ Rinsed/ Irrigated with Irrigated with Irrigated with Saline Saline Saline -Foul Odor after Cleansing No No No -Bioengineered Tissue No No No -Bleeding Controlled with Pressure Pressure Pressure -Treatment Response Procedure Procedure Procedure Tolerated Well Tolerated Well Tolerated Well -Offloading No No No -Debridement - Subq, 1st 20sq cm Yes Yes Yes Pain Scale: 0-10 Numeric Is Patient Pain Free? Yes Yes Yes - Nurse 3 - General Ulcer D/C NN Start: 01/18/24 09:37 Freq: Status: Active Protocol: Activity Type Activity Date Activity User E-sign Co-sign Detail Recorded Client Recorded Date Recorded By Document 01/25/24 10:07 [facility] Desktop 01/25/24 10:08 [facility] Document 02/01/24 10:11 DL Desktop 02/01/24 10:12 DL 01/25/24 02/01/24 10:07 10:11 Wound Care Center Nurse 3 #1 Sacral Cluster -Ulcer Cleansing Rinsed/ Rinsed/ Irrigated with Irrigated with Saline Saline -Foul Odor after Cleansing No No -Primary Dressing Applied Fibracol Plus Fibracol Plus 4x4,Mepilex 4x4,Mepilex Border Border -Fibracol Plus 4x4 1 1 -Mepilex Border 1 1 Treatment Response Procedure Procedure Tolerated Well Tolerated Well Pain Scale: 0-10 Numeric Is Patient Pain Free? Yes Yes - Visit Discharge Discharge Condition Stable Stable Ambulatory Status Wheelchair Wheelchair Transportation Private Auto Private Auto Accompanied by DROPPED OFF Notes: dressing applied per Marcia Arrington today. Assessment/Plan Assessment/Plan (1) Mobility impaired: CODE(S): Z74.09 - Other reduced mobility (2) Decubitus ulcer of buttock, stage 2: CODE(S): L89.302 - Pressure ulcer of unspecified buttock, stage 2 QUALIFIERS: Laterality: unspecified laterality Qualified Code(s): L89.302 - Pressure ulcer of unspecified buttock, stage 2 PLAN: Wash buttocks with antibacterial soap. Apply Fibracol to wound base cover with Adaptic and absorbent dressing every day Follow-up in 1 week Take linezolid 600 mg 1 p.o. 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
[2024-02-08 09:46] VITALS: BP 121/74; PULSE 69; RESP 18; TEMP 35.8; BMI 31.6
--- NOTE | 2024-02-08 12:27 | PCM.WC.PN ---
History of Present Illness Date of Service: 02/08/24 Chief Complaint: Follow-up on buttocks right and left wounds that have been going on for months. 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 He lays on his chair most of the day. And has developed 2 areas on his buttocks sores that have gotten bigger and they have been trying to close for months. Currently there is been using antibiotic ointment. Also has tried Silvadene creams and other things through his doctor Now he has been referred here to the wound center Progress of Wound: Patient finally finished his antibiotic and were actually seen some movement on his healing the left buttocks cheek wound looks smaller and flatter and less like getting skin over it the right 1 is about the same size worsening it starting to shrink a little bit. We will continue using the Fibracol seems to help and the absorbent dressings are staying on better Subjective Subjective and are agreeable to plan Objective Data Objective Data Healing is occurring now this left side is healing faster than the right side but it still getting more shallow and more superficial. Vital Signs: Vital Signs Temp Pulse Resp BP O2 Del Method 96.4 F L 69 18 121/74 H Room Air 02/08/24 09:46 02/08/24 09:46 02/08/24 09:46 02/08/24 09:46 02/01/24 09:54 Oxygen Delivery Method Room Air Weight: 220 lb 0.271 oz Body Mass Index (BMI) 31.6 Lab / Micro Data Micro: Microbiology 01/18/24 09:50 Wound Abcess - Sacral Gram Stain - Final 01/18/24 09:50 Wound Abcess - Sacral Wound Culture - Final Staphylococcus epidermidis 01/18/24 09:50 Wound Abcess - Sacral Anaerobic Culture - Final No anaerobic bacteria isolated. Physical Exam Const oriented x3 General Appearance: cooperative Exam Limitations: no limitations HEENT normocephalic Eyes General Eye: normal appearance of both eyes Resp normal respiratory effort Effort and Inspection: able to speak in complete sentences Auscultation: clear to auscultation bilaterally Cardio regular rate and regular rhythm Palpation: normal PMI Rate: regular rate Rhythm: regular rhythm Back/Spine Cervical Spine: cervical ROM normal Thoracic Spine / Upper Back: normal to inspection Lumbar Spine / Lower Back: normal to inspection Pelvis: buttocks abnormal and other soft tissue findings Open wounds bilateral buttocks Extremity normal to inspection General Extremity: normal exam except as noted Skin Skin Narrative: Open wounds on buttocks clean well marcated Wound Narrative: Stage II Neuro oriented x3 Debridement Note Debridement Note Wound debrided: Cluster buttocks sacral stage II wounds Wound Grade/Stage: Stage II Type of Debridement: Excisional debridement Anesthesia Used: 5% Lidocaine Gel Depth: in the subcutaneous layer Percentage of wound debrided: 100 Instrument Used: 3mm curette Tissue Removed: Fibrin Severity: Limited To Skin Breakdown Amount of bleeding with debridement: Mild Bleeding Controlled with: Compression and gauze Patient tolerated procedure: Patient tolerated procedure well Post-Debridement Measurements and Additional Note: Post-Debridement Measurements/Treatment - Nurse 1 - General Ulcer Assessment Start: 01/18/24 09:37 Freq: Status: Active Protocol: CHEL Activity Type Activity Date Activity User E-sign Co-sign Detail Recorded Client Recorded Date Recorded By Document 01/18/24 09:37 DL Desktop 01/18/24 09:43 DL Document 01/25/24 09:33 BMF Desktop 01/25/24 09:39 BMF Document 02/01/24 09:54 BMF Desktop 02/01/24 10:00 BMF Document 02/08/24 09:46 BMF Desktop 02/08/24 09:53 BMF 01/18/24 01/25/24 02/01/24 09:37 09:33 09:54 - Today's Visit Information Type of service Follow-up Visit Follow-up Visit Follow-up Visit (Physician/LICENSED STAFF MFT (Physician/LICENSED STAFF MFT (Physician/LICENSED STAFF MFT ) ) ) Arrival Mode Wheelchair Wheelchair Wheelchair Transfer Assistance Manual Other Other Transfer Assist (Other) x2 1 STAND BY standby Accompanied by Patient Identification Verified (Name & Yes Yes Yes ) Patient Requires Transmission-Based No No No Precautions Finger Stick Blood Sugar(mg/dl) (if 90 indicated): Blood Sugar Stated by Patient Height and Weight Body Mass Index (BMI) 31.6 31.6 31.6 BMI Classification Obese Obese Obese Vital Signs Temperature (97.8 F-99.1 F) 97.6 F L 96 F L 96.3 F L Temperature Source Temporal Temporal Temporal Pulse Rate (60-100) 73 65 66 Pulse Location Monitor Monitor Monitor Respiratory Rate (12-18) 20 H 16 16 Respiratory rate source Observation Observation Observation Oxygen Delivery Method Room Air Room Air Blood Pressure (90/60-120/80) 128/55 H 126/58 H 121/59 H Blood Pressure Mean (mm Hg) 79 80 79 Source Monitor Monitor Monitor Position Sitting Sitting Blood Pressure Location Left Arm Right Arm History Since Last Visit- (Skip if this is Patient's initial visit) Have you changed medications since your No No No last visit? Any new allergies or adverse reactions No No No Had a fall/change in ADL's that may No No No increase risk of falls Signs or symptoms of abuse and/or No No No neglect since last visit Have you been in the hospital since your No No No last visit? Has dressing in place as prescribed Yes Yes Yes Has compression in place as prescribed N/A N/A N/A Has offloadiing in place as prescribed Yes N/A N/A Experienced any changes in pain level or No No No management Left Footwear Regular Shoe Diabetic Shoe Right Footwear Regular Shoe Diabetic Shoe Pain Scale: 0-10 Numeric Is Patient Pain Free? Yes Yes Yes 02/08/24 09:46 WC - Today's Visit Information Type of service Follow-up Visit (Physician/LICENSED STAFF MFT ) Arrival Mode Wheelchair Transfer Assistance Manual Transfer Assist (Other) x1 Accompanied by Patient Identification Verified (Name & Yes ) Patient Requires Transmission-Based No Precautions Finger Stick Blood Sugar(mg/dl) (if 102 indicated): Blood Sugar Stated by Patient Height and Weight Body Mass Index (BMI) 31.6 BMI Classification Obese Vital Signs Temperature (97.8 F-99.1 F) 96.4 F L Temperature Source Temporal Pulse Rate (60-100) 69 Pulse Location Monitor Respiratory Rate (12-18) 18 Respiratory rate source Observation Oxygen Delivery Method Blood Pressure (90/60-120/80) 121/74 H Blood Pressure Mean (mm Hg) 89 Source Monitor Position Blood Pressure Location History Since Last Visit- (Skip if this is Patient's initial visit) Have you changed medications since your No last visit? Any new allergies or adverse reactions No Had a fall/change in ADL's that may No increase risk of falls Signs or symptoms of abuse and/or No neglect since last visit Have you been in the hospital since your No last visit? Has dressing in place as prescribed Yes Has compression in place as prescribed N/A Has offloadiing in place as prescribed Yes Experienced any changes in pain level or No management Left Footwear Right Footwear Pain Scale: 0-10 Numeric Is Patient Pain Free? Yes WC - Nurse 1 - General Ulcer Measurement Start: 01/18/24 09:37 Freq: Status: Active Protocol: Activity Type Activity Date Activity User E-sign Co-sign Detail Recorded Client Recorded Date Recorded By Document 01/18/24 09:37 DL Desktop 01/18/24 09:43 DL Document 01/25/24 09:33 BMF Desktop 01/25/24 09:39 BMF Document 02/01/24 09:54 BMF Desktop 02/01/24 10:00 BMF Document 02/08/24 09:46 BMF Desktop 02/08/24 09:53 BMF 01/18/24 01/25/24 02/01/24 09:37 09:33 09:54 Wound Center Nurse 1 #1 Sacral Cluster -Combined with other wound No -Current Size (cm) - Length 1.7 2.2 1.2 -Current Size (cm) - Width 3.6 2.2 3 -Current Size (cm) - Depth 0.1 0.1 0.1 -Total Square Cm 6.12 4.84 3.6 -Photo Taken Yes No -Epithelialization Small 1-33% -Tunneling No -Undermining/Tunneling No -Circular Undermining No -Exudate Amt Medium Small Medium -Exudate Type Serosanguineous Serosanguineous Serosanguineous -Wound Margin Distinct, Distinct, Distinct, Outline Outline Outline Attached Attached Attached -Granulation Amt Large (67-100%) Large (67-100%) Large (67-100%) -Granulation Quality [place] Red Pale,Red -Slough/Fibrin No -Necrosis Amt None Present (0 Small (1-33%) None Present (0 %) %) -Necrotic Tissue Type Adherent Slough -Structure Exposed N/A -Texture (Andreea-wound Skin Appearance) Scarring Assessed Assessed, Scarring -Moisture (Andreea-wound Skin Appearance) No Abnormality Assessed Assessed -Color (Andreea-wound Skin Appearance) No Abnormality Assessed Assessed, Erythema -Temperature (Andreea-wound Skin No Abnormality No Abnormality No Abnormality Appearance) (Pt Warm) (Pt Warm) (Pt Warm) -Tenderness on Palpation (Andreea-wound No No Skin Appearance) -Ulcer Cleansing Soap and Water Rinsed/ Rinsed/ Irrigated with Irrigated with Saline Saline -Foul Odor after Cleansing No No No -Anesthetic Used 5% Lidocaine 5% Lidocaine 5% Lidocaine Gel Gel Gel 02/08/24 09:46 Wound Center Nurse 1 #1 Sacral Cluster -Combined with other wound -Current Size (cm) - Length 1.6 -Current Size (cm) - Width 2.5 -Current Size (cm) - Depth 0.1 -Total Square Cm 4.00 -Photo Taken -Epithelialization -Tunneling -Undermining/Tunneling -Circular Undermining -Exudate Amt Medium -Exudate Type Serosanguineous -Wound Margin Distinct, Outline Attached -Granulation Amt Medium (34-66%) -Granulation Quality Pale,[place] -Slough/Fibrin -Necrosis Amt Medium (34-66%) -Necrotic Tissue Type Adherent Slough -Structure Exposed N/A -Texture (Andreea-wound Skin Appearance) Scarring -Moisture (Andreea-wound Skin Appearance) Maceration -Color (Andreea-wound Skin Appearance) No Abnormality -Temperature (Andreea-wound Skin No Abnormality Appearance) (Pt Warm) -Tenderness on Palpation (Andreea-wound No Skin Appearance) -Ulcer Cleansing Rinsed/ Irrigated with Saline -Foul Odor after Cleansing No -Anesthetic Used 5% Lidocaine Gel WC - Nurse 2 - General Ulcer CM Notes Start: 01/18/24 09:37 Freq: Status: Active Protocol: Activity Type Activity Date Activity User E-sign Co-sign Detail Recorded Client Recorded Date Recorded By Document 01/18/24 09:47 MW Desktop 01/18/24 09:55 MW Document 01/25/24 09:56 MW Desktop 01/25/24 10:02 MW Document 02/01/24 10:05 MW Desktop 02/01/24 10:06 MW Document 02/08/24 10:01 MW Desktop 02/08/24 10:03 MW 01/18/24 01/25/24 02/01/24 09:47 09:56 10:05 Wound Center Nurse 2 #1 Sacral Cluster -Time 09:47 09:56 10:05 -Correct Patient Yes Yes Yes -Correct Side, Site, Position Yes Yes Yes -Correct Procedure Yes Yes Yes -Procedure Performed Yes Yes Yes -Type of Procedure Debridement Debridement Debridement -Clinical Debridement Subcutaneous Subcutaneous Subcutaneous -Tissue Removed Subcutaneous Subcutaneous Subcutaneous -Post Debridement (cm) - Length 1.5 1.5 1.0 -Post Debridement (cm) - Width 4.0 3.8 2.5 -Post Debridement (cm) - Depth 0.1 0.1 0.1 -Total Square (Post) (cm) 6.00 5.70 2.50 -Area of Debridement (cm) - Length 1.5 1.5 1.0 -Area of Debridement (cm) - Width 4.0 3.8 2.5 -Total Square (Area) (cm) 6.00 5.70 2.50 -Tunneling No No No -Undermining/Tunneling No No No -Circular Undermining No No No -Wound/Ulcer Outcome Not Healed Not Healed Not Healed -Ulcer Cleansing Rinsed/ Rinsed/ Rinsed/ Irrigated with Irrigated with Irrigated with Saline Saline Saline -Foul Odor after Cleansing No No No -Bioengineered Tissue No No No -Bleeding Controlled with Pressure Pressure Pressure -Treatment Response Procedure Procedure Procedure Tolerated Well Tolerated Well Tolerated Well -Offloading No No No -Debridement - Subq, 1st 20sq cm Yes Yes Yes Pain Scale: 0-10 Numeric Is Patient Pain Free? Yes Yes Yes 02/08/24 10:01 Wound Center Nurse 2 #1 Sacral Cluster -Time 10:01 -Correct Patient Yes -Correct Side, Site, Position Yes -Correct Procedure Yes -Procedure Performed Yes -Type of Procedure Debridement -Clinical Debridement Subcutaneous -Tissue Removed Subcutaneous -Post Debridement (cm) - Length 1.0 -Post Debridement (cm) - Width 2.3 -Post Debridement (cm) - Depth 0.1 -Total Square (Post) (cm) 2.30 -Area of Debridement (cm) - Length 1.0 -Area of Debridement (cm) - Width 2.3 -Total Square (Area) (cm) 2.30 -Tunneling No -Undermining/Tunneling No -Circular Undermining No -Wound/Ulcer Outcome Not Healed -Ulcer Cleansing Rinsed/ Irrigated with Saline -Foul Odor after Cleansing No -Bioengineered Tissue -Bleeding Controlled with Pressure -Treatment Response -Offloading -Debridement - Subq, 1st 20sq cm Yes Pain Scale: 0-10 Numeric Is Patient Pain Free? Yes - Nurse 3 - General Ulcer D/C NN Start: 01/18/24 09:37 Freq: Status: Active Protocol: Activity Type Activity Date Activity User E-sign Co-sign Detail Recorded Client Recorded Date Recorded By Document 01/25/24 10:07 BMF Desktop 01/25/24 10:08 BMF Document 02/01/24 10:11 DL Desktop 02/01/24 10:12 DL Document 02/08/24 10:11 [facility] Desktop 02/08/24 10:11 BMF 01/25/24 02/01/24 02/08/24 10:07 10:11 10:11 Wound Care Center Nurse 3 #1 Sacral Cluster -Ulcer Cleansing Rinsed/ Rinsed/ Rinsed/ Irrigated with Irrigated with Irrigated with Saline Saline Saline -Foul Odor after Cleansing No No No -Primary Dressing Applied Fibracol Plus Fibracol Plus Fibracol Plus 4x4,Mepilex 4x4,Mepilex 4x4,Mepilex Border Border Border -Fibracol Plus 4x4 1 1 1 -Mepilex Border 1 1 1 Treatment Response Procedure Procedure Procedure Tolerated Well Tolerated Well Tolerated Well Pain Scale: 0-10 Numeric Is Patient Pain Free? Yes Yes Yes WC - Visit Discharge Discharge Condition Stable Stable Stable Ambulatory Status Wheelchair Wheelchair Wheelchair Transportation Private Auto Private Auto Private Auto Accompanied by DROPPED OFF Notes: dressing applied per Marcia Arrington today. Assessment/Plan Assessment/Plan (1) Mobility impaired: CODE(S): Z74.09 - Other reduced mobility (2) Decubitus ulcer of buttock, stage 2: CODE(S): L89.302 - Pressure ulcer of unspecified buttock, stage 2 QUALIFIERS: Laterality: unspecified laterality Qualified Code(s): L89.302 - Pressure ulcer of unspecified buttock, stage 2 PLAN: Wash buttocks with antibacterial soap. 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
== END 2024-02-14 23:59 | disposition home or self-care (01) ==
LOC: WC 09:45
PROVIDERS: PCP Family Medicine; Referring Provider Family Medicine; Visit Provider Nurse Practitioner
DX: E11.622 Type 2 diabetes mellitus with other skin ulcer (principal); L89.312 Pressure ulcer of right buttock, stage 2; L89.322 Pressure ulcer of left buttock, stage 2; C91.90 Lymphoid leukemia, unspecified not having achieved remission; L89.321 Pressure ulcer of left buttock, stage 1; E78.5 Hyperlipidemia, unspecified; I10 Essential (primary) hypertension; I25.10 Atherosclerotic heart disease of native coronary artery without angina pectoris; Z79.899 Other long term (current) drug therapy; M10.9 Gout, unspecified; Z79.84 Long term (current) use of oral hypoglycemic drugs; Z87.891 Personal history of nicotine dependence; Z74.09 Other reduced mobility; L89.311 Pressure ulcer of right buttock, stage 1
CPT/HCPCS: 11042; 87070; 87075; 87186; 87205

== ENCOUNTER 2024-03-07 09:45 | Outpatient (RCR) | payer MEDICARE, SELFPAY ==
[2024-02-15 00:29] VITALS: BP 121/74; PULSE 69; RESP 18; TEMP 35.8; BMI 31.6
[2024-02-15 09:47] VITALS: BP 125/50; PULSE 73; TEMP 35.3; BMI 31.6
--- NOTE | 2024-02-15 12:33 | PCM.WC.PN ---
History of Present Illness Date of Service: 02/15/24 Chief Complaint: Follow-up on buttocks right and left wounds that have been going on for months. 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 He lays on his chair most of the day. And has developed 2 areas on his buttocks sores that have gotten bigger and they have been trying to close for months. Currently there is been using antibiotic ointment. Also has tried Silvadene creams and other things through his doctor Now he has been referred here to the wound center Progress of Wound: The left side of the buttocks is almost healed both them are much flatter and smaller. I think they are a both happy with the outcome so far. Subjective Subjective Both and are agreeable to plan to continue with the Fibracol and the foam dressings Objective Data Objective Data Measurements are smaller on the cluster in the buttocks area on the sacral area. No sign of infection and things seem to be moving along now since he finished his antibiotic therapy Vital Signs: Vital Signs Temp Pulse Resp BP 95.6 F L 73 18 125/50 H 02/15/24 09:47 02/15/24 09:47 02/15/24 00:29 02/15/24 09:47 Weight: 220 lb 0.271 oz Body Mass Index (BMI) 31.6 Physical Exam Const oriented x3 General Appearance: cooperative Exam Limitations: no limitations HEENT normocephalic Eyes General Eye: normal appearance of both eyes Resp normal respiratory effort Effort and Inspection: able to speak in complete sentences Auscultation: clear to auscultation bilaterally Cardio regular rate and regular rhythm Palpation: normal PMI Rate: regular rate Rhythm: regular rhythm Back/Spine Cervical Spine: cervical ROM normal Thoracic Spine / Upper Back: normal to inspection Lumbar Spine / Lower Back: normal to inspection Pelvis: buttocks abnormal and other soft tissue findings Open wounds bilateral buttocks Extremity normal to inspection General Extremity: normal exam except as noted Skin Skin Narrative: Open wounds on buttocks clean well marcated Wound Narrative: Stage II Neuro oriented x3 Debridement Note Debridement Note Wound debrided: Cluster buttocks sacral stage II wounds Wound Grade/Stage: Stage II Type of Debridement: Excisional debridement Anesthesia Used: 5% Lidocaine Gel Depth: in the subcutaneous layer Percentage of wound debrided: 100 Instrument Used: 3mm curette Tissue Removed: Fibrin Severity: Limited To Skin Breakdown Amount of bleeding with debridement: Mild Bleeding Controlled with: Compression and gauze Patient tolerated procedure: Patient tolerated procedure well Post-Debridement Measurements and Additional Note: Post-Debridement Measurements/Treatment - Nurse 1 - General Ulcer Assessment Start: 02/15/24 09:47 Freq: Status: Active Protocol: CHEL Activity Type Activity Date Activity User E-sign Co-sign Detail Recorded Client Recorded Date Recorded By Document 02/15/24 09:47 DS Desktop 02/15/24 09:54 DS 02/15/24 09:47 WC - Today's Visit Information Type of service Follow-up Visit (Physician/BUSINESS COMPUTERS TEACHER ) Arrival Mode Wheelchair Height and Weight Body Mass Index (BMI) 31.6 BMI Classification Obese Vital Signs Temperature (97.8 F-99.1 F) 95.6 F L Temperature Source Temporal Pulse Rate (60-100) 73 Pulse Location Monitor Blood Pressure (90/60-120/80) 125/50 H Blood Pressure Mean (mm Hg) 75 Source Monitor Position Sitting Blood Pressure Location Right Arm History Since Last Visit- (Skip if this is Patient's initial visit) Have you changed medications since your No last visit? Any new allergies or adverse reactions No Had a fall/change in ADL's that may No increase risk of falls Have you been in the hospital since your No last visit? Has dressing in place as prescribed Yes Has compression in place as prescribed N/A Experienced any changes in pain level or No management Left Footwear Regular Shoe Right Footwear Regular Shoe Pain Scale: 0-10 Numeric Is Patient Pain Free? No sacral -Description Aching -Intensity 1 -Duration (hours) Chronic -Pain Behavior No Change in Behavior -Alleviating Factors/Interventions Will continue to monitor, Patient denies need for intervention, Emotional Support - Nurse 1 - General Ulcer Measurement Start: 02/15/24 09:47 Freq: Status: Active Protocol: Activity Type Activity Date Activity User E-sign Co-sign Detail Recorded Client Recorded Date Recorded By Document 02/15/24 09:47 DS Desktop 02/15/24 09:54 DS 02/15/24 09:47 Wound Center Nurse 1 #1 Sacral Cluster -Current Size (cm) - Length 1 -Current Size (cm) - Width 2.5 -Current Size (cm) - Depth 0.1 -Total Square Cm 2.5 -Photo Taken No -Tunneling No -Undermining/Tunneling No -Circular Undermining No -Exudate Amt Medium -Exudate Type Serosanguineous -Wound Margin Distinct, Outline Attached -Granulation Amt Medium (34-66%) -Slough/Fibrin Yes -Necrosis Amt Small (1-33%) -Necrotic Tissue Type Adherent Slough -Texture (Andreea-wound Skin Appearance) Assessed -Moisture (Andreea-wound Skin Appearance) Assessed -Color (Andreea-wound Skin Appearance) Assessed -Temperature (Andreea-wound Skin No Abnormality Appearance) (Pt Warm) -Tenderness on Palpation (Andreea-wound No Skin Appearance) -Ulcer Cleansing Soap and Water -Anesthetic Used 5% Lidocaine Gel SHAYLA - Nurse 2 - General Ulcer CM Notes Start: 02/15/24 09:47 Freq: Status: Active Protocol: Activity Type Activity Date Activity User E-sign Co-sign Detail Recorded Client Recorded Date Recorded By Document 02/15/24 10:04 [facility] Desktop 02/15/24 10:09 [facility] 02/15/24 10:04 Wound Center Nurse 2 -Time 10:05 -Correct Patient Yes -Correct Side, Site, Position Yes -Correct Procedure Yes -Procedure Performed Yes -Type of Procedure Debridement -Clinical Debridement Subcutaneous -Tissue Removed Subcutaneous -Post Debridement (cm) - Length 1 -Post Debridement (cm) - Width 2.5 -Post Debridement (cm) - Depth 0.1 -Total Square (Post) (cm) 2.5 -Area of Debridement (cm) - Length 1 -Area of Debridement (cm) - Width 2.5 -Total Square (Area) (cm) 2.5 -Tunneling No -Undermining/Tunneling No -Circular Undermining No -Wound/Ulcer Outcome Not Healed -Ulcer Cleansing Rinsed/ Irrigated with Saline -Foul Odor after Cleansing No -Bioengineered Tissue No -Bleeding Controlled with Pressure -Treatment Response Procedure Tolerated Well -Offloading Yes -Type of Offloading Other -Other Type of Offloading WHEELCHAIR CUSHION; REPOSITION FREQUENTLY -Debridement - Subq, 1st 20sq cm Yes Pain Scale: 0-10 Numeric Is Patient Pain Free? Yes SHAYLA - Nurse 3 - General Ulcer D/C NN Start: 02/15/24 09:47 Freq: Status: Active Protocol: Activity Type Activity Date Activity User E-sign Co-sign Detail Recorded Client Recorded Date Recorded By Document 02/15/24 10:17 [facility] Desktop 02/15/24 10:18 [facility] 02/15/24 10:17 Wound Care Center Nurse 3 #1 Sacral Cluster -Ulcer Cleansing Rinsed/ Irrigated with Saline -Foul Odor after Cleansing No -Primary Dressing Applied Fibracol Plus 4x4,Mepilex Border -Fibracol Plus 4x4 1 -Mepilex Border 1 Treatment Response Procedure Tolerated Well Pain Scale: 0-10 Numeric Is Patient Pain Free? Yes WC - Visit Discharge Discharge Condition Stable Ambulatory Status Wheelchair Transportation Private Auto Accompanied by Assessment/Plan Assessment/Plan (1) Mobility impaired: CODE(S): Z74.09 - Other reduced mobility (2) Decubitus ulcer of buttock, stage 2: CODE(S): L89.302 - Pressure ulcer of unspecified buttock, stage 2 QUALIFIERS: Laterality: unspecified laterality Qualified Code(s): L89.302 - Pressure ulcer of unspecified buttock, stage 2 PLAN: Wash buttocks with antibacterial soap. 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
[2024-02-22 10:04] VITALS: BP 114/48; PULSE 64; RESP 18; TEMP 35.7; BMI 31.6
--- NOTE | 2024-02-22 10:59 | PCM.WC.PN ---
History of Present Illness Date of Service: 02/22/24 Chief Complaint: Follow-up on buttocks right and left wounds that have been going on for months. 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 He lays on his chair most of the day. And has developed 2 areas on his buttocks sores that have gotten bigger and they have been trying to close for months. Currently there is been using antibiotic ointment. Also has tried Silvadene creams and other things through his doctor Now he has been referred here to the wound center Progress of Wound: The left side of the buttocks is almost healed right side of wound is healed much flatter and smaller. I think they are a both happy with the outcome so far. Subjective Subjective Happy with outcomes we will have him follow-up in 2 weeks he should be healed Objective Data Objective Data Doing well will continue using the Fibracol with the absorbent dressing he just has to heal the 1 side should be done within the next 2 weeks Vital Signs: Vital Signs Temp Pulse Resp BP 96.2 F L 64 18 114/48 L 02/22/24 10:04 02/22/24 10:04 02/22/24 10:04 02/22/24 10:04 Weight: 220 lb 0.271 oz Body Mass Index (BMI) 31.6 Physical Exam Const oriented x3 General Appearance: cooperative Exam Limitations: no limitations HEENT normocephalic Eyes General Eye: normal appearance of both eyes Resp normal respiratory effort Effort and Inspection: able to speak in complete sentences Auscultation: clear to auscultation bilaterally Cardio regular rate and regular rhythm Palpation: normal PMI Rate: regular rate Rhythm: regular rhythm Back/Spine Cervical Spine: cervical ROM normal Thoracic Spine / Upper Back: normal to inspection Lumbar Spine / Lower Back: normal to inspection Pelvis: buttocks abnormal and other soft tissue findings Open wounds bilateral buttocks Extremity normal to inspection General Extremity: normal exam except as noted Skin Skin Narrative: Open wounds on buttocks clean well marcated Wound Narrative: Stage II Neuro oriented x3 Debridement Note Debridement Note Wound debrided: Cluster buttocks sacral stage II wounds Wound Grade/Stage: Stage II Type of Debridement: Excisional debridement Anesthesia Used: 5% Lidocaine Gel Depth: in the subcutaneous layer Percentage of wound debrided: 100 Instrument Used: 3mm curette Tissue Removed: Fibrin Severity: Limited To Skin Breakdown Amount of bleeding with debridement: Mild Bleeding Controlled with: Compression and gauze Patient tolerated procedure: Patient tolerated procedure well Post-Debridement Measurements and Additional Note: Post-Debridement Measurements/Treatment - Nurse 1 - General Ulcer Assessment Start: 02/15/24 09:47 Freq: Status: Active Protocol: CHEL Activity Type Activity Date Activity User E-sign Co-sign Detail Recorded Client Recorded Date Recorded By Document 02/15/24 09:47 DS Desktop 02/15/24 09:54 DS Document 02/22/24 10:04 RB Desktop 02/22/24 10:05 RB 02/15/24 02/22/24 09:47 10:04 - Today's Visit Information Type of service Follow-up Visit Follow-up Visit (Physician/RECORDS MANAGEMENT MANAGER (Physician/RECORDS MANAGEMENT MANAGER ) ) Arrival Mode Wheelchair Ambulatory Transfer Assistance None Patient Identification Verified (Name & Yes ) Patient Requires Transmission-Based No Precautions Height and Weight Body Mass Index (BMI) 31.6 31.6 BMI Classification Obese Obese Vital Signs Temperature (97.8 F-99.1 F) 95.6 F L 96.2 F L Temperature Source Temporal Temporal Pulse Rate (60-100) 73 64 Pulse Location Monitor Monitor Respiratory Rate (12-18) 18 Respiratory rate source Observation Blood Pressure (90/60-120/80) 125/50 H 114/48 L Blood Pressure Mean (mm Hg) 75 70 Source Monitor Monitor Position Sitting Semi-Fowlers Blood Pressure Location Right Arm Left Arm History Since Last Visit- (Skip if this is Patient's initial visit) Have you changed medications since your No No last visit? Any new allergies or adverse reactions No No Had a fall/change in ADL's that may No No increase risk of falls Signs or symptoms of abuse and/or No neglect since last visit Have you been in the hospital since your No No last visit? Has dressing in place as prescribed Yes Yes Has compression in place as prescribed N/A No Has offloadiing in place as prescribed No Experienced any changes in pain level or No No management Left Footwear Regular Shoe Right Footwear Regular Shoe Pain Scale: 0-10 Numeric Is Patient Pain Free? No Yes sacral -Description Aching -Intensity 1 -Duration (hours) Chronic -Pain Behavior No Change in Behavior -Alleviating Factors/Interventions Will continue to monitor, Patient denies need for intervention, Emotional Support WC - Nurse 1 - General Ulcer Measurement Start: 02/15/24 09:47 Freq: Status: Active Protocol: Activity Type Activity Date Activity User E-sign Co-sign Detail Recorded Client Recorded Date Recorded By Document 02/15/24 09:47 DS Desktop 02/15/24 09:54 DS Document 02/22/24 10:04 RB Desktop 02/22/24 10:05 RB 02/15/24 02/22/24 09:47 10:04 Wound Center Nurse 1 #1 Sacral Cluster -Combined with other wound No -Current Size (cm) - Length 1 1.3 -Current Size (cm) - Width 2.5 2 -Current Size (cm) - Depth 0.1 0.1 -Total Square Cm 2.5 2.6 -Photo Taken No -Tunneling No No -Undermining/Tunneling No No -Circular Undermining No No -Exudate Amt Medium Medium -Exudate Type Serosanguineous Serosanguineous -Wound Margin Distinct, Distinct, Outline Outline Attached Attached -Granulation Amt Medium (34-66%) Medium (34-66%) -Granulation Quality [place] -Slough/Fibrin Yes Yes -Necrosis Amt Small (1-33%) Medium (34-66%) -Necrotic Tissue Type Adherent Slough Adherent Slough -Structure Exposed N/A -Texture (Andreea-wound Skin Appearance) Assessed Assessed -Moisture (Andreea-wound Skin Appearance) Assessed Assessed -Color (Andreea-wound Skin Appearance) Assessed Assessed -Temperature (Andreea-wound Skin No Abnormality No Abnormality Appearance) (Pt Warm) (Pt Warm) -Tenderness on Palpation (Andreea-wound No No Skin Appearance) -Ulcer Cleansing Soap and Water Wound Cleanser -Foul Odor after Cleansing No -Anesthetic Used 5% Lidocaine 5% Lidocaine Gel Gel WC - Nurse 2 - General Ulcer CM Notes Start: 02/15/24 09:47 Freq: Status: Active Protocol: Activity Type Activity Date Activity User E-sign Co-sign Detail Recorded Client Recorded Date Recorded By Document 02/15/24 10:04 F Desktop 02/15/24 10:09 [facility] Document 02/22/24 10:15 [facility] Desktop 02/22/24 10:17 F 02/15/24 02/22/24 10:04 10:15 Wound Center Nurse 2 #1 Sacral Cluster -Time 10:05 10:15 -Correct Patient Yes Yes -Correct Side, Site, Position Yes Yes -Correct Procedure Yes Yes -Procedure Performed Yes Yes -Type of Procedure Debridement Debridement -Clinical Debridement Subcutaneous Subcutaneous -Tissue Removed Subcutaneous Subcutaneous -Post Debridement (cm) - Length 1 0.5 -Post Debridement (cm) - Width 2.5 1 -Post Debridement (cm) - Depth 0.1 0.1 -Total Square (Post) (cm) 2.5 0.5 -Area of Debridement (cm) - Length 1 0.5 -Area of Debridement (cm) - Width 2.5 1 -Total Square (Area) (cm) 2.5 0.5 -Tunneling No No -Undermining/Tunneling No No -Circular Undermining No No -Wound/Ulcer Outcome Not Healed Not Healed -Ulcer Cleansing Rinsed/ Rinsed/ Irrigated with Irrigated with Saline Saline -Foul Odor after Cleansing No No -Bioengineered Tissue No No -Bleeding Controlled with Pressure Pressure -Treatment Response Procedure Procedure Tolerated Well Tolerated Well -Offloading Yes No -Type of Offloading Other -Other Type of Offloading WHEELCHAIR CUSHION; REPOSITION FREQUENTLY -Debridement - Subq, 1st 20sq cm Yes Yes Pain Scale: 0-10 Numeric Is Patient Pain Free? Yes Yes WC - Nurse 3 - General Ulcer D/C NN Start: 02/15/24 09:47 Freq: Status: Active Protocol: Activity Type Activity Date Activity User E-sign Co-sign Detail Recorded Client Recorded Date Recorded By Document 02/15/24 10:17 [facility] Desktop 02/15/24 10:18 [facility] Document 02/22/24 10:24 DL Desktop 02/22/24 10:27 DL Document 02/22/24 10:57 DL Desktop 02/22/24 10:58 DL 02/15/24 02/22/24 02/22/24 10:17 10:24 10:57 Wound Care Center Nurse 3 #1 Sacral Cluster -Ulcer Cleansing Rinsed/ Rinsed/ Soap and Water Irrigated with Irrigated with Saline Saline -Foul Odor after Cleansing No No No -Negative Pressure Wound Therapy Continue -Setting (mmHg) 150 -Negative Pressure is Continuous -Primary Dressing Applied Fibracol Plus Fibracol Plus 4x4,Mepilex 4x4,Mepilex Border Border -Other Dressing white foam -NPWT Application Charge NPWT & Debridement (nc ) -Fibracol Plus 4x4 1 1 -Mepilex Border 1 1 Treatment Response Procedure Procedure Procedure Tolerated Well Tolerated Well Tolerated Well Pain Scale: 0-10 Numeric Is Patient Pain Free? Yes Yes Yes WC - Visit Discharge Discharge Condition Stable Stable Stable Ambulatory Status Wheelchair Ambulatory, Ambulatory, Wheelchair Walker Transportation Private Auto Private Auto Private Auto Accompanied by Facility Type Home Health Orders Sent Yes Assessment/Plan Assessment/Plan (1) Mobility impaired: CODE(S): Z74.09 - Other reduced mobility (2) Decubitus ulcer of buttock, stage 2: CODE(S): L89.302 - Pressure ulcer of unspecified buttock, stage 2 QUALIFIERS: Laterality: unspecified laterality Qualified Code(s): L89.302 - Pressure ulcer of unspecified buttock, stage 2 PLAN: Wash buttocks with antibacterial soap. 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
[2024-03-07 10:03] VITALS: BP 107/51; PULSE 69; RESP 18; TEMP 36.3; BMI 31.6
--- NOTE | 2024-03-07 11:49 | PCM.WC.PN ---
History of Present Illness Date of Service: 03/07/24 Chief Complaint: Follow-up on buttocks right and left wounds that have been going on for months. 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 He lays on his chair most of the day. And has developed 2 areas on his buttocks sores that have gotten bigger and they have been trying to close for months. Currently there is been using antibiotic ointment. Also has tried Silvadene creams and other things through his doctor Now he has been referred here to the wound center Progress of Wound: The left side of the buttocks is healed right side of wound is healed much flatter and smaller. I think they are a both happy with the outcome so far. Subjective Subjective is concerned about prevention. I suggested gel cushions he needs to get up more he needs to shift his weight more he cannot lay on his back he needs to lay on his side [id number] all preventative care Objective Data Objective Data Wounds are healing nicely almost healed on the right which should be by next week we will continue using the Fibracol are tolerating it well no sign of any other infection the left side is completely closed. Vital Signs: Vital Signs Temp Pulse Resp BP 97.4 F L 69 18 107/51 L 03/07/24 10:03 03/07/24 10:03 03/07/24 10:03 03/07/24 10:03 Weight: 220 lb 0.271 oz Body Mass Index (BMI) 31.6 Lab / Micro Data Attestation: I reviewed the patient's lab results. Physical Exam Const oriented x3 General Appearance: cooperative Exam Limitations: no limitations HEENT normocephalic Eyes General Eye: normal appearance of both eyes Resp normal respiratory effort Effort and Inspection: able to speak in complete sentences Auscultation: clear to auscultation bilaterally Cardio regular rate and regular rhythm Palpation: normal PMI Rate: regular rate Rhythm: regular rhythm Back/Spine Cervical Spine: cervical ROM normal Thoracic Spine / Upper Back: normal to inspection Lumbar Spine / Lower Back: normal to inspection Pelvis: buttocks abnormal and other soft tissue findings Open wounds bilateral buttocks Extremity normal to inspection General Extremity: normal exam except as noted Skin Skin Narrative: Open wounds on buttocks clean well marcated Wound Narrative: Stage II Neuro oriented x3 Debridement Note Debridement Note Wound debrided: Right buttocks sacral stage II wounds Wound Grade/Stage: Stage II Type of Debridement: Excisional debridement Anesthesia Used: 5% Lidocaine Gel Depth: in the subcutaneous layer Percentage of wound debrided: 100 Instrument Used: 3mm curette Tissue Removed: Fibrin Severity: Limited To Skin Breakdown Amount of bleeding with debridement: Mild Bleeding Controlled with: Compression and gauze Patient tolerated procedure: Patient tolerated procedure well Post-Debridement Measurements and Additional Note: Post-Debridement Measurements/Treatment - Nurse 1 - General Ulcer Assessment Start: 02/15/24 09:47 Freq: Status: Active Protocol: CHEL Activity Type Activity Date Activity User E-sign Co-sign Detail Recorded Client Recorded Date Recorded By Document 02/15/24 09:47 DS Desktop 02/15/24 09:54 DS Document 02/22/24 10:04 RB Desktop 02/22/24 10:05 RB Document 03/07/24 10:03 RB wound center 03/07/24 10:05 RB 02/15/24 02/22/24 03/07/24 09:47 10:04 10:03 - Today's Visit Information Type of service Follow-up Visit Follow-up Visit Follow-up Visit (Physician/BINDERY LEADPERSON (Physician/BINDERY LEADPERSON (Physician/BINDERY LEADPERSON ) ) ) Arrival Mode Wheelchair Ambulatory Ambulatory Transfer Assistance None None Patient Identification Verified (Name & Yes Yes ) Patient Requires Transmission-Based No No Precautions Height and Weight Body Mass Index (BMI) 31.6 31.6 31.6 BMI Classification Obese Obese Obese Vital Signs Temperature (97.8 F-99.1 F) 95.6 F L 96.2 F L 97.4 F L Temperature Source Temporal Temporal Temporal Pulse Rate (60-100) 73 64 69 Pulse Location Monitor Monitor Monitor Respiratory Rate (12-18) 18 18 Respiratory rate source Observation Observation Blood Pressure (90/60-120/80) 125/50 H 114/48 L 107/51 L Blood Pressure Mean (mm Hg) 75 70 69 Source Monitor Monitor Monitor Position Sitting Semi-Fowlers Semi-Fowlers Blood Pressure Location Right Arm Left Arm Left Arm History Since Last Visit- (Skip if this is Patient's initial visit) Have you changed medications since your No No No last visit? Any new allergies or adverse reactions No No No Had a fall/change in ADL's that may No No No increase risk of falls Signs or symptoms of abuse and/or No No neglect since last visit Have you been in the hospital since your No No No last visit? Has dressing in place as prescribed Yes Yes Yes Has compression in place as prescribed N/A No No Has offloadiing in place as prescribed No No Experienced any changes in pain level or No No No management Left Footwear Regular Shoe Right Footwear Regular Shoe Pain Scale: 0-10 Numeric Is Patient Pain Free? No Yes No sacral -Description Aching Aching -Intensity 1 3 -Duration (hours) Chronic -Pain Behavior No Change in Behavior -Alleviating Factors/Interventions Will continue Medication to monitor, Patient denies need for intervention, Emotional Support -Effectiveness of Alleviating Factor/ Moderately Intervention effective WC - Nurse 1 - General Ulcer Measurement Start: 02/15/24 09:47 Freq: Status: Active Protocol: Activity Type Activity Date Activity User E-sign Co-sign Detail Recorded Client Recorded Date Recorded By Document 02/15/24 09:47 DS Desktop 02/15/24 09:54 DS Document 02/22/24 10:04 RB Desktop 02/22/24 10:05 RB Document 03/07/24 10:03 wound center 03/07/24 10:05 RB 02/15/24 02/22/24 03/07/24 09:47 10:04 10:03 Wound Center Nurse 1 #1 Sacral Cluster -Combined with other wound No No -Current Size (cm) - Length 1 1.3 1 -Current Size (cm) - Width 2.5 2 0.5 -Current Size (cm) - Depth 0.1 0.1 0.1 -Total Square Cm 2.5 2.6 0.5 -Photo Taken No -Tunneling No No No -Undermining/Tunneling No No No -Circular Undermining No No No -Exudate Amt Medium Medium Medium -Exudate Type Serosanguineous Serosanguineous Serosanguineous -Wound Margin Distinct, Distinct, Distinct, Outline Outline Outline Attached Attached Attached -Granulation Amt Medium (34-66%) Medium (34-66%) Medium (34-66%) -Granulation Quality [place] -Slough/Fibrin Yes Yes Yes -Necrosis Amt Small (1-33%) Medium (34-66%) Medium (34-66%) -Necrotic Tissue Type Adherent Slough Adherent Slough Adherent Slough -Structure Exposed N/A N/A -Texture (Andreea-wound Skin Appearance) Assessed Assessed Assessed -Moisture (Andreea-wound Skin Appearance) Assessed Assessed Assessed -Color (Andreea-wound Skin Appearance) Assessed Assessed Assessed -Temperature (Andreea-wound Skin No Abnormality No Abnormality No Abnormality Appearance) (Pt Warm) (Pt Warm) (Pt Warm) -Tenderness on Palpation (Andreea-wound No No No Skin Appearance) -Ulcer Cleansing Soap and Water Wound Cleanser Wound Cleanser -Foul Odor after Cleansing No No -Anesthetic Used 5% Lidocaine 5% Lidocaine 5% Lidocaine Gel Gel Gel WC - Nurse 2 - General Ulcer CM Notes Start: 02/15/24 09:47 Freq: Status: Active Protocol: Activity Type Activity Date Activity User E-sign Co-sign Detail Recorded Client Recorded Date Recorded By Document 02/15/24 10:04 [email or web address] 02/15/24 10:09 [employer] Document 02/22/24 10:15 [email or web address] 02/22/24 10:17 [employer] Document 03/07/24 10:14 [email or web address] [id number] 03/07/24 10:18 [employer] 02/15/24 02/22/24 03/07/24 10:04 10:15 10:14 Wound Center Nurse 2 #1 Sacral Cluster -Time 10:05 10:15 10:14 -Correct Patient Yes Yes Yes -Correct Side, Site, Position Yes Yes Yes -Correct Procedure Yes Yes Yes -Procedure Performed Yes Yes Yes -Type of Procedure Debridement Debridement Debridement -Clinical Debridement Subcutaneous Subcutaneous Subcutaneous -Tissue Removed Subcutaneous Subcutaneous Subcutaneous -Post Debridement (cm) - Length 1 0.5 1.3 -Post Debridement (cm) - Width 2.5 1 0.5 -Post Debridement (cm) - Depth 0.1 0.1 0.1 -Total Square (Post) (cm) 2.5 0.5 0.65 -Area of Debridement (cm) - Length 1 0.5 1.3 -Area of Debridement (cm) - Width 2.5 1 0.5 -Total Square (Area) (cm) 2.5 0.5 0.65 -Tunneling No No No -Undermining/Tunneling No No No -Circular Undermining No No No -Wound/Ulcer Outcome Not Healed Not Healed Not Healed -Ulcer Cleansing Rinsed/ Rinsed/ Rinsed/ Irrigated with Irrigated with Irrigated with Saline Saline Saline -Foul Odor after Cleansing No No No -Bioengineered Tissue No No No -Bleeding Controlled with Pressure Pressure Pressure -Treatment Response Procedure Procedure Procedure Tolerated Well Tolerated Well Tolerated Well -Offloading Yes No Yes -Type of Offloading Other Other -Other Type of Offloading WHEELCHAIR CHAIR CUSHION; CUSHION; REPOS Q2H, REPOSITION FREQUENTLY -Debridement - Subq, 1st 20sq cm Yes Yes Yes Pain Scale: 0-10 Numeric Is Patient Pain Free? Yes Yes Yes - Nurse 3 - General Ulcer D/C NN Start: 02/15/24 09:47 Freq: Status: Active Protocol: Activity Type Activity Date Activity User E-sign Co-sign Detail Recorded Client Recorded Date Recorded By Document 02/15/24 10:17 [facility] Desktop 02/15/24 10:18 [facility] Document 02/22/24 10:24 DL Desktop 02/22/24 10:27 DL Document 02/22/24 10:57 DL Desktop 02/22/24 10:58 DL Document 03/07/24 10:27 [facility] [id number] 03/07/24 10:28 [facility] 02/15/24 02/22/24 02/22/24 10:17 10:24 10:57 Wound Care Center Nurse 3 #1 Sacral Cluster -Ulcer Cleansing Rinsed/ Rinsed/ Soap and Water Irrigated with Irrigated with Saline Saline -Foul Odor after Cleansing No No No -Negative Pressure Wound Therapy Continue -Setting (mmHg) 150 -Negative Pressure is Continuous -Primary Dressing Applied Fibracol Plus Fibracol Plus 4x4,Mepilex 4x4,Mepilex Border Border -Other Dressing white foam -NPWT Application Charge NPWT & Debridement (nc ) -Fibracol Plus 4x4 1 1 -Mepilex Border 1 1 Treatment Response Procedure Procedure Procedure Tolerated Well Tolerated Well Tolerated Well Pain Scale: 0-10 Numeric Is Patient Pain Free? Yes Yes Yes - Visit Discharge Discharge Condition Stable Stable Stable Ambulatory Status Wheelchair Ambulatory, Ambulatory, Wheelchair Walker Transportation Private Auto Private Auto Private Auto Accompanied by Facility Type Home Health Orders Sent Yes 03/07/24 10:27 Wound Care Center Nurse 3 #1 Sacral Cluster -Ulcer Cleansing Rinsed/ Irrigated with Saline -Foul Odor after Cleansing No -Negative Pressure Wound Therapy -Setting (mmHg) -Negative Pressure is -Primary Dressing Applied Fibracol Plus 4x4,Mepilex Border -Other Dressing -NPWT Application Charge -Fibracol Plus 4x4 1 -Mepilex Border 1 Treatment Response Procedure Tolerated Well Pain Scale: 0-10 Numeric Is Patient Pain Free? Yes WC - Visit Discharge Discharge Condition Stable Ambulatory Status Wheelchair Transportation Private Auto Accompanied by Facility Type Orders Sent Assessment/Plan Assessment/Plan (1) Mobility impaired: CODE(S): Z74.09 - Other reduced mobility (2) Decubitus ulcer of buttock, stage 2: CODE(S): L89.302 - Pressure ulcer of unspecified buttock, stage 2 QUALIFIERS: Laterality: unspecified laterality Qualified Code(s): L89.302 - Pressure ulcer of unspecified buttock, stage 2 PLAN: Wash buttocks with antibacterial soap. 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
== END 2024-03-16 23:59 | disposition home or self-care (01) ==
LOC: WC 09:45
PROVIDERS: PCP Family Medicine; Referring Provider Family Medicine; Visit Provider Nurse Practitioner
DX: E11.622 Type 2 diabetes mellitus with other skin ulcer (principal); L89.322 Pressure ulcer of left buttock, stage 2; L89.312 Pressure ulcer of right buttock, stage 2; C91.90 Lymphoid leukemia, unspecified not having achieved remission; E11.59 Type 2 diabetes mellitus with other circulatory complications; Z74.09 Other reduced mobility
CPT/HCPCS: 11042

== ENCOUNTER 2024-03-30 21:04 | Inpatient (IN) | payer MEDICARE, SELFPAY ==
[2024-03-30] VITALS (12 sets, daily range): BP systolic 75–110; BP diastolic 35–70; PULSE 110–124; RESP 18–22; TEMP 37.6–37.9; O2SAT 87–98; BMI 31.4
--- NOTE | 2024-03-30 20:49 | HP.PCM.HOS_ITS ---
HPI - General General Date of Admission: 03/30/24 Date of Service: 03/30/24 Chief Complaint: New onset A-fib with RVR and UTI HPI Narrative BRANDY LOMELI, is a 83 M who presented to [facility] [place] on 03/30/2024 as a transfer from [place] [facility] for new onset A-fib with RVR and UTI with concern for sepsis. Saw patient at bedside on the floor shortly after arrival, and son present. Patient was sitting up fairly comfortably in bed, conversing normally, in no acute distress. He was somewhat pale and fatigued appearing. Patient lives at home with his . He generally has a fairly poor functional status and has essentially not been able to walk for the past few years. He has a known sacral decubitus wound that is being followed by wound care. Patient and state that over the past few days he has been weaker than normal and then he developed fevers and chills this morning. He also was having more difficulty urinating than normal with some dysuria and had a small amount of blood in his urine. For these reasons they took him to the [place] ED for further evaluation. Reviewed [place] [facility] provider notes in [facility]. Was noted the patient appeared very dry on exam, so he was made a sepsis alert upon arrival. UA was consistent with a UTI and patient was started on ceftriaxone. He was reportedly given a 30 cc/kg fluid bolus and it was noted that he responded well and was not hypotensive. He was also noted to be in new onset A-fib with RVR. He was started on a Cardizem drip with improvement in his heart rate to the 90s to 100s. He was also started on heparin drip for anticoagulation. Labs there were notable for creatinine 1.85 (baseline appears to be less than 1), lactate 2.0, WBC count 9.6. On arrival here, patient was noted to be in A-fib with RVR with heart rates consistently in the 120s to 130s. He was still on the diltiazem drip at 10 mg/hr. His initial blood pressures were noted to be in the 80s over 40s. Given concern for possible septic shock in setting of known UTI with concern for bacteremia, patient was transferred up to the ICU for further management. He was given another 1 L LR bolus at that time. Diltiazem drip was continued at that rate. Heparin drip was discontinued and patient will be started on Eliquis for anticoagulation. [facility] Medical History Atherosclerotic heart disease of [place] coronary artery without angina pectoris Essential (primary) hypertension Gout HLD (hyperlipidemia) Hyperlipidemia Left ventricular hypertrophy Lymphoid leukemia Obesity Old inferior wall myocardial infarction (2000) Osteoarthritis Thrombocytopenic disorder Type 2 diabetes mellitus Home Medications ?Medication ?Instructions ?Recorded ?Last Taken ?Type allopurinol 300 mg tablet 300 mg PO DAILY 09/20/13 Unknown History aspirin 81 mg chewable tablet 81 mg PO DAILY@0800 09/20/13 Unknown History lorazepam 1 mg tablet 1 mg PO QHS 09/20/13 Unknown History meloxicam 15 mg tablet 15 mg PO DAILY 09/20/13 Unknown History multivitamin with folic acid 400 1 tab PO DAILY 09/20/13 Unknown History mcg tablet pyridoxine (vitamin B6) 100 mg 100 mg PO DAILY 09/20/13 Unknown History tablet tramadol 50 mg tablet 50 mg PO Q4H PRN PRN Pain 09/20/13 Unknown History famotidine 20 mg tablet (Acid 20 mg PO DAILY 12/01/18 Unknown History [employer] (famotidine)) ibrutinib 420 mg tablet (Imbruvica) 420 mg PO DAILY 12/01/18 Unknown History loratadine 10 mg capsule 10 mg PO DAILY 12/01/18 Unknown History cholecalciferol (vitamin D3) 25 25 mcg PO DAILY 12/30/20 Unknown History mcg (1,000 unit) tablet metformin 500 mg tablet,extended 500 mg PO BID 12/30/20 Unknown History release 24 hr gabapentin 600 mg tablet 600 mg PO TID 07/13/22 Unknown History lisinopril 10 mg tablet 10 mg PO DAILY #90 tabs 11/03/23 Unknown Rx metoprolol succinate 25 mg 25 mg PO DAILY #90 tabs 11/03/23 Unknown Rx tablet,extended release 24 hr nitroglycerin 0.4 mg sublingual 0.4 mg sublingual Q5M PRN chest 11/03/23 Unknown Rx tablet pain #25 tabs simvastatin 20 mg tablet 20 mg PO DAILY #90 tabs 11/03/23 Unknown Rx tamsulosin 0.4 mg capsule (Flomax) 0.4 mg PO DAILY 01/11/24 Unknown History Allergy/AdvReac Type Severity Reaction Status Date / Time [facility] Unknown Verified 11/03/23 09:58 Extended-Release) Sulfa (Sulfonamide AdvReac Swelling Verified 11/03/23 09:58 Antibiotics) Family History Father Cancer lymphoma Myocardial infarction CAD (coronary artery disease) Mother CVA (cerebral vascular accident) Cancer HLD (hyperlipidemia) Hypertension Brother Myocardial infarction CAD (coronary artery disease) Sister Breast cancer Surgical History H/O arthroscopic knee surgery History of coronary artery stent placement (05/13/10) History of lithotripsy History of repair of rotator cuff Social History Smoking Status: Never smoker alcohol intake: former substance use type: does not use caffeine: No what type of physical activity do you participate in: none seatbelt use: always do you feel safe at home: Yes ROS Constitutional Constitutional: Reports fatigue, fever(s) and weakness; Denies chills Eyes Eyes: Denies change in vision Cardiovascular Cardiovascular: Denies chest pain, edema, lightheadedness, palpitations, rapid heart rate or syncope Respiratory/Chest Respiratory/Chest: Denies cough, shortness of breath at rest or shortness of breath with exertion Gastrointestinal Gastrointestinal: Denies abdominal pain Genitourinary Genitourinary: Reports difficulty urinating, dysuria, hematuria and urinary hesitancy; Denies urinary frequency Musculoskeletal Musculoskeletal: Denies arthralgias or myalgias Neurologic Neurologic: Denies dizziness, focal weakness or headache(s) Physical Exam Const alert, oriented x3, no apparent distress and average body habitus Constitutional Narrative: Pleasant elderly male, somewhat pale and fatigued appearing, otherwise sitting up comfortably in bed, conversing normally, in no acute distress. General Appearance: cooperative and comfortable HEENT normocephalic, head/scalp atraumatic, hearing grossly normal bilaterally and nasal mucous membranes and turbinates normal HEENT Narrative: Somewhat dry mucous membranes. Eyes PERRL, EOMs intact bilaterally and conjunctivae normal Neck full ROM Chest inspection of chest normal Resp normal respiratory effort, normal air movement, no use of accessory muscles and clear to auscultation bilaterally Cardio no murmurs and peripheral pulses 2+ throughout Cardio Narrative: A-fib with RVR. GI normal to inspection, nondistended, normoactive bowel sounds, soft to palpation, non-tender and non-distended Extremity normal to inspection and no pedal edema Neuro Speech: speech normal Psych mental status grossly normal Results Lab / Micro Data 03/30/24 21:47 03/30/24 21:47 Assessment & Plan Assessment/Plan (1) Sepsis: (2) UTI (urinary tract infection): (3) New onset a-fib: (4) MARIA DOLORES (acute kidney injury): PLAN: Plan Patient is an 83-year-old male who presented to [facility] [place] on 03/30/2024 as a transfer from [place] ED for new onset A-fib with RVR and UTI with concern for sepsis. 1. Sepsis secondary to UTI with concern for bacteremia ? Admit under inpatient status to ICU. UA at outside ED infectious appearing and patient with UTI type symptoms. Suspect BPH with some degree of urinary retention is driving factor for UTI. Repeat UA with urine culture and blood cultures drawn here. Met sepsis criteria at outside ED with hypotension responsive to fluids, tachycardia, MARIA DOLORES and elevated lactate in setting of UTI. Was reportedly given 30 cc/kg at outside ED but was hypotensive and tachycardic on arrival here. Was given another 1 L LR; will hold on further fluids for now and start Levophed if needed. Was given a dose of ceftriaxone at outside ED, suspect low blood pressures could impart be due to endotoxin release from gram- negative bacteria. Continue IV ceftriaxone for now, follow-up cultures. Notably has no previous urine cultures available. Monitor closely. 2. New onset A-fib with RVR ? Cardiology consulted. Noted to be in new onset A-fib with RVR at outside ED, started on diltiazem drip there. Remained in A-fib with RVR on arrival here. Suspect RVR is in part due to sepsis as noted above. Continue diltiazem drip, will add Lopressor 25 mg twice daily for now. [id number] score of 4 (age, HTN, diabetes). Heparin drip was started at outside ED, will discontinue this and start Eliquis 5 mg twice daily for anticoagulation. Echo ordered. 3. MARIA DOLORES ? Creatinine 1.85 at outside ED, baseline reportedly less than 1. Repeat creatinine 1.47 here after heavy IV fluid administration at outside ED. Suspect primarily prerenal MARIA DOLORES but cannot rule out postobstructive etiology given BPH with concern for urinary retention. Renal ultrasound ordered. Monitor daily BMP and urine output. 4. Acute on chronic debility, history of spinal stenosis with impaired mobility ? PT/OT/case management consulted. Reportedly with poor functional status, essentially unable to walk at baseline for last few years. Now weaker than baseline suspected due to sepsis as noted above. 5. BPH with obstructive symptoms ? Continue home Flomax. If patient is consistently retaining, can consider Ken placement. Chronic medical conditions: ? CLL: Stable, WBC count normal. Continue home ibrutinib. ? Type 2 diabetes mellitus with neuropathy: Home regimen of metformin 500 mg twice daily. Blood glucose 178 on admit. Will start sliding scale insulin with meals while inpatient. Continue home gabapentin. ? History of CAD with stenting, hypertension, hyperlipidemia: Continue home aspirin and statin. Holding home lisinopril for now. ? Chronic leg pain: Continue home tramadol. ? Insomnia: Continue home Ativan at night. ? Allergies: Continue home loratadine. ? GERD: Continue home Pepcid. DVT prophylaxis: Not indicated, on full dose Eliquis CODE STATUS: Full code, verified Expected disposition: TBD Total clinical time spent by myself addressing the patient's medical issues, reviewing all the data, and collaborating with patient's care team: 75 minutes. Charges/Coding Visit Charges Inpatient E&M: 58362 Init Hosp L3
--- NOTE | 2024-03-30 21:21 | EKG12_ITS ---
Test Reason : admit ekg Blood Pressure : / mmHG Vent. 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 rate has increased BY 48 BPM T wave inversion no longer evident in Inferior leads Nonspecific T wave abnormality now evident in Anterolateral leads Confirmed by RHEA WHITE, YOLI ([id number]), editor & co founder MARÍA MONTES ([id number]) on 04/03/2024 9:27:40 AM Referred By: Confirmed By:YOLI WILKERSON MD
[2024-03-30 22:00] LABS: Absolute Lymphocyte Count 0.56 X10^3/uL (0.83-4.51); Absolute Neutrophil Count 7.3 X10^3/uL (2.0-7.7); Basophil# 0.01 X10^3/uL; Basophil% 0.1 % (0-1); Hematocrit 36.9 % (40-54); Hemoglobin 11.6 g/dL (13.0-16.5); Lymphocyte # 0.56 X10^3/ul (0.83-4.51); Lymphocyte % 6.5 % (19-41); Mean Corp Hgb Conc 31.4 g/dL (32-36); Mean Corpuscular Volume 104.8 fL (80-94); Mean Platelet Vol. 11.2 fl (6.2-12.0); Monocyte# 0.62 X10^3/uL; Monocyte% 7.2 % (0-10); NRBC Flagged by Analyzer 0 % (0-5); Neutrophil # 7.29 X10^3/uL (2.7-7.7); Neutrophil % 85.3 % (47-70); POSITIVE COUNT YES; POSITIVE DIFFERENTIAL YES; Platelet Count 73 K/mm3 (150-450); RBC Distribution Width CV 14.1 % (11.6-14.6); RBC Distribution Width SD 54.9 fl (35.1-43.9); Red Blood Count 3.52 M/mm3 (4.6-6.2); White Blood Count 8.6 K/mm3 (4.4-11.0)
[2024-03-30] MEDS: Lactated Ringers 1,000 ML 999 ML IV (22:02)
[2024-03-30 22:07] LABS: Anion Gap 9 (5-15); BUN 53 mg/dL (7-18); BUN/Creat Ratio 36.1 RATIO (10-20); Calcium,Total 8.2 mg/dL (8.5-10.1); Chloride 110 mmol/L (98-107); Creatinine, Serum 1.47 mg/dL (0.70-1.30); EST Glomerular Filtration Rate 49 mL/min (>60); Est Glom Filt Rate - Afr Amer 59 mL/min (>60); Estimated Creatinine Clearance 46.54 ml/min; Glucose 178 mg/dL (74-106); Potassium 4.2 mmol/L (3.5-5.1); Sodium Level 141 mmol/L (136-145)
[2024-03-30 22:30] LABS: Differential Indicated SCAN CRITERIA MET
--- NOTE | 2024-03-30 22:31 | ECHOD_ITS ---
Reason For Study: Afib, Aflutter Procedure This was a 2D Doppler, Color Flow transthoracic echocardiogram. Exam performed portable in ICU/CCU. Left Ventricle Normal LV size. The estimated ejection fraction is 60 %. No evidence for diastolic dysfunction. Basal inferior hypokinesis. Right Ventricle Normal RV size. Normal systolic function. Atria The left atrium is mildly enlarged. Normal right atrium. No doppler evidence for ASD. Mitral Valve There is no mitral valve stenosis. Trivial mitral valve insufficiency. Tricuspid Valve There is no tricuspid stenosis. Trivial tricuspid valve insufficiency. Pulmonary artery systolic pressure is 35 mmHg. Aortic Valve There is no aortic stenosis. No aortic valve insufficiency. Pulmonic Valve There is no pulmonic valvular stenosis. No pulmonic valve insufficiency. Great Vessels Normal aortic root. Pericardium/Pleural No pericardial effusion. MMode/2D Measurements & Calculations LVIDd: 4.7 cm IVSd: 1.5 cm Ao root diam: 3.6 cm LVIDs: 4.1 cm LVPWd: 0.96 cm RVDd: 3.4 cm FS: 13.0 % LAV(MOD-bp): 56.0 ml LVAd ap4: 22.1 cm2 SV(MOD-sp4): 28.3 ml LAV(MOD-bp) Indexed: 25.8 ml/m2 LVLd ap4: 7.1 cm LAV(MOD-sp2): 57.1 ml EDV(MOD-sp4): 56.7 ml LAV(MOD-sp4): 55.0 ml EDV(sp4-el): 57.9 ml LVAs ap4: 14.2 cm2 LVLs ap4: 6.2 cm ESV(MOD-sp4): 28.4 ml ESV(sp4-el): 27.7 ml EF(MOD-sp4): 50.0 % EF(sp4-el): 52.2 % SV(sp4-el): 30.2 ml LA A4 area: 20.8 cm2 LA dimension(2D): 4.2 cm RA A4 area: 12.5 cm2 TAPSE: 1.9 cm Doppler Measurements & Calculations MV E max kory: 102.5 cm/sec Lat Peak E' Kory: 18.9 cm/sec Med Peak E' Kory: 13.1 cm/sec E/E' lat: 5.4 E/E' med: 7.8 Ao V2 max: 152.2 cm/sec LV V1 max: 115.3 cm/sec PA V2 max: 79.5 cm/sec Ao max P.3 mmHg LV V1 max P.4 mmHg Ao V2 mean: 113.3 cm/sec Ao mean P.5 mmHg Ao V2 VTI: 22.3 cm TR max kory: 272.5 cm/sec TR max P.7 mmHg ECHO/Echo Complete Interpretation Summary The estimated ejection fraction is 60 %. No evidence for diastolic dysfunction. Basal inferior hypokinesis The left atrium is mildly enlarged. Trivial mitral valve insufficiency. Ordering Physician: Pedro Landaverde Referring Physician: Matt Flores Performed By: Idalmis Jaramillo, ORTEGA, RVT
[2024-03-30 22:35] LABS: Differential Comment SEE COMMENTS
[2024-03-30 22:36] LABS: Anisocytosis 1+; Macrocytosis 1+; Platelet Estimate MOD DEC (ADEQ); Red Cell Morphology N CHROM NORMAL (NORM C&C)
[2024-03-30] MEDS: Diltiazem 125 MG in Dextrose 5%-Water (100mL Bag) 100 ML 10 MG CONT INF (22:52)
[2024-03-30] MEDS: traMADol 50 MG Tablet PO (23:42)
[2024-03-30] MEDS: Gabapentin 400 MG Capsule PO (23:42)
[2024-03-30] MEDS: Tamsulosin HCl 0.4 MG Capsule PO (23:42)
[2024-03-30] MEDS: Atorvastatin Calcium 10 MG Tablet PO (23:42)
[2024-03-30] MEDS: LORazepam 1 MG Tablet PO (23:44)
[2024-03-31] VITALS (57 sets, daily range): BP systolic 63–142; BP diastolic 41–128; PULSE 79–149; RESP 14–22; TEMP 36.5–37.6; O2SAT 92–100; BMI 29.2
[2024-03-31] LABS: Mucous, Urine 0 SEEN /hpf (<or=2+); Squamous Epithelial Cells - UA 0 SEEN /hpf (0-5)
[2024-03-31 00:14] LABS: Color, Urine Brown (Yellow); Glucose, Dipstick Normal (Normal); Ketone-Dipstick 15 mg/dl (Negative); Leukocyte Esterase-Dipstick 500 /ul (Negative); Nitrite-Dipstick Positive (Negative); Occult Blood-Urine 250 /ul (Negative); Protein-Dipstick 500 mg/dl (Negative); Specific Gravity, Urine 1.015 (1.002-1.030); Urine Bilirubin Dipstick Negative (Negative); Urine Clarity Turbid (Clear); Urine Urobilinogen 1 mg/dl (Normal); Urine pH 6.5 (5.0 - 8.0)
[2024-03-31 00:45] LABS: Bacteria 2+ /hpf (None Seen); Red Blood Cells-Urine > 100 SEEN /hpf (0-5); White Blood Cells >100 SEEN /hpf (0-5)
[2024-03-31] MEDS: Acetaminophen 325 MG Tablet 650 MG PO (02:07)
[2024-03-31 03:53] LABS: Hematocrit 35.9 % (40-54); Hemoglobin 11.3 g/dL (13.0-16.5); Mean Corp Hgb Conc 31.5 g/dL (32-36); Mean Corpuscular Hgb 33.1 pg (27.0-32.0); Mean Corpuscular Volume 105.3 fL (80-94); Mean Platelet Vol. 10.9 fl (6.2-12.0); POSITIVE COUNT YES; Platelet Count 62 K/mm3 (150-450); RBC Distribution Width CV 14.1 % (11.6-14.6); RBC Distribution Width SD 54.5 fl (35.1-43.9); Red Blood Count 3.41 M/mm3 (4.6-6.2)
[2024-03-31 03:58] LABS: Scan Indicated on CBC? Y/N NO
[2024-03-31] MEDS: 0.9% Saline Lock 10 ML Syringe IV ×2 (04:01→04:29)
[2024-03-31 04:20] LABS: Anion Gap 12 (5-15); BUN 52 mg/dL (7-18); BUN/Creat Ratio 31.7 RATIO (10-20); Calcium,Total 8.3 mg/dL (8.5-10.1); Chloride 109 mmol/L (98-107); Creatinine, Serum 1.64 mg/dL (0.70-1.30); EST Glomerular Filtration Rate 43 mL/min (>60); Est Glom Filt Rate - Afr Amer 52 mL/min (>60); Estimated Creatinine Clearance 40.37 ml/min; Glucose 173 mg/dL (74-106); Sodium Level 141 mmol/L (136-145)
[2024-03-31] MEDS: Digoxin 250 MCG/ML Ampul IV (04:28)
[2024-03-31] MEDS: Norepinephrine 8 MG in 0.9% Normal Saline (250mL Bag) 242 ML 9.4 MG CONT INF (06:10)
[2024-03-31] MEDS: Gabapentin 400 MG Capsule PO (06:12)
[2024-03-31] MEDS: Aspirin 81 MG TAB.CHEW PO (08:20)
[2024-03-31] MEDS: Ceftriaxone 2 GM in 0.9% Normal Saline (50mL MB+) 50 ML IV (08:20)
[2024-03-31] MEDS: Multivitamins,Therapeutic Tablet 1 TABLET PO (08:20)
[2024-03-31] MEDS: Loratadine 10 MG Tablet PO (08:20)
[2024-03-31] MEDS: Famotidine 20 MG Tablet PO (08:21)
[2024-03-31] MEDS: Pyridoxine HCl 100 MG Tablet PO (08:21)
[2024-03-31] MEDS: Cholecalciferol (VIT D3) 25 MCG TABLET (1,000 UNITS) PO (08:21)
[2024-03-31] MEDS: APIXABAN 5 MG TABLET PO ×2 (08:22→21:00)
[2024-03-31] MEDS: Insulin Lispro 100 UNIT/ML INSULN.PEN SC ×4 (08:28→21:00)
[2024-03-31] MEDS: 0.9% Normal Saline (250mL Bag) 250 ML 15 ML IV (08:28)
[2024-03-31 08:39] LABS: Bedside Glucose 171 mg/dL (74-106)
--- NOTE | 2024-03-31 09:18 | PCM.PN.HOSP ---
Subjective Subjective Hypotensive this morning overnight was placed on a Cardizem drip when his pressure stopped had Levophed added Objective Data Objective Data Vital Signs: Vital Signs Temp Pulse Resp BP Pulse Ox O2 Del Method O2 Flow Rate 99.7 F H 114 H 20 H 90/53 L 92 Nasal Cannula 2 03/31/24 04:00 03/31/24 07:00 03/31/24 07:00 03/31/24 07:00 03/31/24 07:50 03/31/24 08:00 03/31/24 08:00 Oxygen Flow Rate (L/min) 2 Oxygen Delivery Method Nasal Cannula Weight: 203 lb 14.841 oz Body Mass Index (BMI) 29.2 Intake & Output: Intake and Output for Last 24 Hours 03/30/24 03/31/24 04/01/24 03:59 03:59 03:59 Intake Total 1046.33 / 1061.33 114.56 / 114.56 Output Total 200 / 200 Balance 1026.33 / 1041.33 -85.44 / -85.44 Lab / Micro Data 03/31/24 03:40 03/31/24 03:40 Labs: Laboratory Results - last 24 hr 03/30/24 21:47: WBC 8.6, RBC 3.52 L, Hgb 11.6 L, Hct 36.9 L, MCV 104.8 H, MCH 33.0 H, MCHC 31.4 L, RDW Std Deviation 54.9 H, RDW Coeff of Jacinda 14.1, Plt Count 73 L, MPV 11.2, Immature Gran % (Auto) 0.900, Neut % (Auto) 85.3 H, Lymph % (Auto) 6.5 L, [place] % (Auto) 7.2, Eos % (Auto) 0.0, Baso % (Auto) 0.1, Absolute Neuts (auto) 7.3, Absolute Lymphs (auto) 0.56 L, Nucleated RBC % 0, Differential Comment SEE COMMENTS, Platelet Estimate MOD DEC, RBC Morphology N CHROM, Anisocytosis 1+, Macrocytosis 1+, Sodium 141, Potassium 4.2, Chloride 110 H, Carbon Dioxide 22.0, Anion Gap 9, BUN 53 H, Creatinine 1.47 H, Estim Creat Clear Calc 46.54, Est GFR (MDRD) Af Amer 59 L, Est GFR (MDRD) Non-Af 49 L, BUN/Creatinine Ratio 36.1 H, Glucose 178 H, Calcium 8.2 L 03/30/24 23:54: Urine Color Brown, Urine Clarity Turbid, Urine pH 6.5, Ur Specific Rinard 1.015, Urine Protein 500 H, Urine Glucose (UA) Normal, Urine Ketones 15 H, Urine Occult Blood 250 H, Urine Nitrite Positive H, Urine Bilirubin Negative, Urine Urobilinogen 1 H, Ur Leukocyte Esterase 500 H, Urine RBC > 100 SEEN, Urine WBC >100 SEEN, Ur Squamous Epith Cells 0 SEEN, Urine Bacteria 2+, Urine Mucus 0 SEEN 03/31/24 03:40: WBC 5.0, RBC 3.41 L, Hgb 11.3 L, Hct 35.9 L, MCV 105.3 H, MCH 33.1 H, MCHC 31.5 L, RDW Std Deviation 54.5 H, RDW Coeff of Jacinda 14.1, Plt Count 62 L, MPV 10.9, Sodium 141, Potassium 4.0, Chloride 109 H, Carbon Dioxide 20.0 L, Anion Gap 12, BUN 52 H, Creatinine 1.64 H, Estim Creat Clear Calc 40.37, Est GFR (MDRD) Af Amer 52 L, Est GFR (MDRD) Non-Af 43 L, BUN/Creatinine Ratio 31.7 H, Glucose 173 H, Calcium 8.3 L 03/31/24 08:19: POC Glucose 171 H Physical Exam Narrative General: Alert, Oriented x3, Cooperative, No apparent distress HEENT: Atraumatic, PERRLA, EOMI, Normocephalic Oral: Moist Mucosa Neck: Supple, No JVD Lungs: Diminished, Normal air movement, No rhonchi, No wheeze, No rales Cardiovascular: Irregular rate and rhythm, Normal S1, Normal S2, No murmurs Abdomen: Soft, Non Tender, Non-Distended, No Hepato-splenomegaly Extremities: No edema, Capillary Refill Less than 3 Seconds Skin: No rashes, No breakdown Musculoskeletal: No Tenderness to Palpation of Joints or Extremities Neurological: No focal neurological deficits, Motor Exam 5/5 strength throughout, Sensory exam intact to light touch and pain Psych/Mental Status: Flat Assessment & Plan Assessment/Plan (1) Sepsis: (2) UTI (urinary tract infection): (3) New onset a-fib: (4) MARIA DOLORES (acute kidney injury): PLAN: Plan 1. Sepsis secondary to UTI with possible bacteremia/MARIA DOLORES ? Continue with antibiotics ? She received a 4 L IV fluids, his hypotension is likely related to the Cardizem being used in the setting of sepsis for his A-fib with RVR ? Blood and urine cultures are pending ? Pressor support is due to the A-fib and Cardizem use not from sepsis ? Creatinine at the outside hospital is around 1.85, baseline is a little less than 1, will continue to monitor 2. New onset A-fib with RVR/CAD status post stent/essential HTN/HLD ? Will obtain an echo ? Appreciate cardiology's assistance ? Will change to amiodarone instead of the Cardizem given the hypotension and the need for pressor support ? Continue with aspirin and statin 3. 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 Continue with sliding scale ? Accu-Cheks ACHS ? Will monitor and make adjustments as necessary ? Will hold metformin ? Will continue with gabapentin as renal function is improving 4. Acute on chronic debility, history of spinal stenosis with impaired mobility/CLL ? PT/OT/case management consulted. Reportedly with poor functional status, essentially unable to walk at baseline for last few years. Now weaker than baseline suspected due to sepsis as noted above. 5. BPH with obstructive symptoms ? Continue home Flomax. ? Ken is in place 6. GERD ? Stable ? Continue with Pepcid DVT: Eliquis Charges/Coding Visit Charges Inpatient E&M: 22732 Subs Hosp L2
[2024-03-31] MEDS: Amiodarone 150 MG in Dextrose 5%-Water (100mL Bag) 100 ML 600 MG IV BOLUS (09:20)
[2024-03-31] MEDS: Amiodarone 360 MG in Dextrose 5% Viaflo Bag 192.8 ML 33.3 MG CONT INF (09:33)
[2024-03-31] MEDS: 0.9% Normal Saline (1000mL) 1,000 ML 100 ML IV ×2 (10:43→23:02)
[2024-03-31 11:48] LABS: Bedside Glucose 208 mg/dL (74-106)
[2024-03-31] MEDS: 0.9% Normal Saline (1000mL) 1,000 ML 999 ML IV (12:31)
[2024-03-31] MEDS: CLARIFY ORDER 1 EACH NOTE (12:51)
--- NOTE | 2024-03-31 15:51 | CON.PCM.CA_ITS ---
Assessment & Plan Assessment/Plan (1) New onset a-fib: PLAN: Continue amiodarone for 24 hours and then switch to amiodarone p.o. at 200 mg p.o. twice daily. Agree with Holly. (2) History of coronary artery stent placement: PLAN: Continue present management. (3) Essential (primary) hypertension: HPI Consult Data Date of Consult: 03/31/24 HPI Narrative Reason for Consultation: Atrial fibrillation HPI Narrative: BRANDY LOMELI, is a 83 M who presents UTI with sepsis and A-fib with RVR. Patient was initially on a Cardizem drip. He also required Levophed as his blood pressure was low. He has been switched to amiodarone with better control of heart rate. Cardizem has been stopped. He is still on Levophed. [facility] Medical History Atherosclerotic heart disease of [place] coronary artery without angina pectoris Essential (primary) hypertension Gout HLD (hyperlipidemia) Hyperlipidemia Left ventricular hypertrophy Lymphoid leukemia Obesity Old inferior wall myocardial infarction (2000) Osteoarthritis Thrombocytopenic disorder Type 2 diabetes mellitus Home Medications ?Medication ?Instructions ?Recorded ?Last Taken ?Type allopurinol 300 mg tablet 300 mg PO DAILY 09/20/13 Unknown History aspirin 81 mg chewable tablet 81 mg PO DAILY@0800 09/20/13 Unknown History lorazepam 1 mg tablet 1 mg PO QHS 09/20/13 Unknown History meloxicam 15 mg tablet 15 mg PO DAILY 09/20/13 Unknown History multivitamin with folic acid 400 1 tab PO DAILY 09/20/13 Unknown History mcg tablet pyridoxine (vitamin B6) 100 mg 100 mg PO DAILY 09/20/13 Unknown History tablet tramadol 50 mg tablet 50 mg PO Q4H PRN PRN Pain 09/20/13 Unknown History famotidine 20 mg tablet (Acid 20 mg PO DAILY 12/01/18 Unknown History Barrel Charrer (famotidine)) ibrutinib 420 mg tablet (Imbruvica) 420 mg PO DAILY 12/01/18 Unknown History loratadine 10 mg capsule 10 mg PO DAILY 12/01/18 Unknown History cholecalciferol (vitamin D3) 25 25 mcg PO DAILY 12/30/20 Unknown History mcg (1,000 unit) tablet metformin 500 mg tablet,extended 500 mg PO BID 12/30/20 Unknown History release 24 hr gabapentin 600 mg tablet 600 mg PO TID 07/13/22 Unknown History lisinopril 10 mg tablet 10 mg PO DAILY #90 tabs 11/03/23 Unknown Rx metoprolol succinate 25 mg 25 mg PO DAILY #90 tabs 11/03/23 Unknown Rx tablet,extended release 24 hr nitroglycerin 0.4 mg sublingual 0.4 mg sublingual Q5M PRN chest 11/03/23 Unknown Rx tablet pain #25 tabs simvastatin 20 mg tablet 20 mg PO DAILY #90 tabs 11/03/23 Unknown Rx tamsulosin 0.4 mg capsule (Flomax) 0.4 mg PO DAILY 01/11/24 Unknown History Allergy/AdvReac Type Severity Reaction Status Date / Time niacin (From Niaspan Allergy Unknown Verified 11/03/23 09:58 Extended-Release) Sulfa (Sulfonamide AdvReac Swelling Verified 11/03/23 09:58 Antibiotics) Family History Father Cancer lymphoma Myocardial infarction CAD (coronary artery disease) Mother CVA (cerebral vascular accident) Cancer HLD (hyperlipidemia) Hypertension Brother Myocardial infarction CAD (coronary artery disease) Sister Breast cancer Surgical History H/O arthroscopic knee surgery History of coronary artery stent placement (05/13/10) History of lithotripsy History of repair of rotator cuff Social History Smoking Status: Never smoker alcohol intake: former substance use type: does not use caffeine: No what type of physical activity do you participate in: none seatbelt use: always do you feel safe at home: Yes Physical Exam Const alert HEENT normocephalic Eyes no scleral icterus Resp normal respiratory effort Risk Stratification Risk Stratification Applicable: No Charges/Coding Visit Charges Inpatient E&M: 46904 Init Hosp L2 Objective Data Vital Signs: Vital Signs Temp Pulse Resp BP Pulse Ox O2 Del Method O2 Flow Rate 99.5 F H 81 16 99/67 99 Nasal Cannula 2 03/31/24 12:00 03/31/24 14:00 03/31/24 14:00 03/31/24 14:00 03/31/24 14:00 03/31/24 14:00 03/31/24 14:00 Oxygen Flow Rate (L/min) 2 Oxygen Delivery Method Nasal Cannula Weight: 203 lb 14.841 oz Body Mass Index (BMI) 29.2 Intake & Output: Intake and Output for Last 24 Hours 03/29/24 03/30/24 03/31/24 23:59 23:59 23:59 Intake Total 3.83 / 11.33 2946.85 / 2946.85 Output Total 970 / 970 Balance 3.83 / -8.67 1976.85 / 1976.85 Lab / Micro Data 03/31/24 03:40 03/31/24 03:40 Labs: Laboratory Results - last 24 hr 03/30/24 21:47: WBC 8.6, RBC 3.52 L, Hgb 11.6 L, Hct 36.9 L, MCV 104.8 H, MCH 33.0 H, MCHC 31.4 L, RDW Std Deviation 54.9 H, RDW Coeff of Jacinda 14.1, Plt Count 73 L, MPV 11.2, Immature Gran % (Auto) 0.900, Neut % (Auto) 85.3 H, Lymph % (Auto) 6.5 L, [place] % (Auto) 7.2, Eos % (Auto) 0.0, Baso % (Auto) 0.1, Absolute Neuts (auto) 7.3, Absolute Lymphs (auto) 0.56 L, Nucleated RBC % 0, Differential Comment SEE COMMENTS, Platelet Estimate MOD DEC, RBC Morphology N CHROM, Anisocytosis 1+, Macrocytosis 1+, Sodium 141, Potassium 4.2, Chloride 110 H, Carbon Dioxide 22.0, Anion Gap 9, BUN 53 H, Creatinine 1.47 H, Estim Creat Clear Calc 46.54, Est GFR (MDRD) Af Amer 59 L, Est GFR (MDRD) Non-Af 49 L, B UN/Creatinine Ratio 36.1 H, Glucose 178 H, Calcium 8.2 L 03/30/24 23:54: Urine Color Brown, Urine Clarity Turbid, Urine pH 6.5, Ur Specific Anton 1.015, Urine Protein 500 H, Urine Glucose (UA) Normal, Urine Ketones 15 H, Urine Occult Blood 250 H, Urine Nitrite Positive H, Urine Bilirubin Negative, Urine Urobilinogen 1 H, Ur Leukocyte Esterase 500 H, Urine RBC > 100 SEEN, Urine WBC >100 SEEN, Ur Squamous Epith Cells 0 SEEN, Urine Bacteria 2+, Urine Mucus 0 SEEN 03/31/24 03:40: WBC 5.0, RBC 3.41 L, Hgb 11.3 L, Hct 35.9 L, MCV 105.3 H, MCH 33.1 H, MCHC 31.5 L, RDW Std Deviation 54.5 H, RDW Coeff of Jacinda 14.1, Plt Count 62 L, MPV 10.9, Sodium 141, Potassium 4.0, Chloride 109 H, Carbon Dioxide 20.0 L , Anion Gap 12, BUN 52 H, Creatinine 1.64 H, Estim Creat Clear Calc 40.37, Est GFR (MDRD) Af Amer 52 L, Est GFR (MDRD) Non-Af 43 L, BUN/Creatinine Ratio 31.7 H , Glucose 173 H, Calcium 8.3 L 03/31/24 08:19: POC Glucose 171 H 03/31/24 11:31: POC Glucose 208 H Cardiology Labs/Tests 03/30/24 21:47: WBC 8.6, RBC 3.52 L, Hgb 11.6 L, Hct 36.9 L, MCV 104.8 H, MCH 33.0 H, MCHC 31.4 L, Plt Count 73 L, MPV 11.2, Immature Gran % (Auto) 0.900, N eut % (Auto) 85.3 H, Lymph % (Auto) 6.5 L, [place] % (Auto) 7.2, Eos % (Auto) 0.0, Baso % (Auto) 0.1, Absolute Neuts (auto) 7.3, Nucleated RBC % 0, Sodium 141, Potassium 4.2, Chloride 110 H, Carbon Dioxide 22.0, Anion Gap 9, BUN 53 H, C reatinine 1.47 H, Est GFR (MDRD) Af Amer 59 L, Est GFR (MDRD) Non-Af 49 L, B UN/Creatinine Ratio 36.1 H, Glucose 178 H, Calcium 8.2 L 03/30/24 23:54: Urine Color Brown, Urine Clarity Turbid, Urine pH 6.5, Ur Specific Anton 1.015, Urine Protein 500 H, Urine Glucose (UA) Normal, Urine Ketones 15 H, Urine Occult Blood 250 H, Urine Nitrite Positive H, Urine Bilirubin Negative, Urine Urobilinogen 1 H, Ur Leukocyte Esterase 500 H, Urine RBC > 100 SEEN, Urine WBC >100 SEEN 03/31/24 03:40: WBC 5.0, RBC 3.41 L, Hgb 11.3 L, Hct 35.9 L, MCV 105.3 H, MCH 33.1 H, MCHC 31.5 L, Plt Count 62 L, MPV 10.9, Sodium 141, Potassium 4.0, C hloride 109 H, Carbon Dioxide 20.0 L, Anion Gap 12, BUN 52 H, Creatinine 1.64 H, Est GFR (MDRD) Af Amer 52 L, Est GFR (MDRD) Non-Af 43 L, BUN/Creatinine Ratio 31.7 H, Glucose 173 H, Calcium 8.3 L Rhythm: EKG: ECHO: Stress Test: Cardiac Cath: PCI: CT Surgery: Holter monitor: EPS: PPM: CXR: Chest CT Scan: Radiography Diagnostic Testing: Radiology Impression Echocardiogram 03/30/24 22:31 Interpretation Summary The estimated ejection fraction is 60 %. No evidence for diastolic dysfunction. Basal inferior hypokinesis The left atrium is mildly enlarged. Trivial mitral valve insufficiency. Ordering Physician: Pedro Landaverde Referring Physician: Matt Flores Performed By: Idalmis Jaramillo, ORTEGA, RVT
--- NOTE | 2024-03-31 16:18 | RAD_ITS ---
INDICATION: PICC line EXAMINATION/TECHNIQUE: X-RAY - portable upright AP chest x-ray COMPARISON: None. FINDINGS: LINES/DEVICES: Right arm PICC line with tip near the cavoatrial junction. LUNGS: Bilateral subsegmental atelectasis in the lower lung earl. No vascular congestion, consolidation or pleural effusion. No pneumothorax. MEDIASTINUM AND CARDIOVASCULAR STRUCTURES: Cardiac silhouette not enlarged. Central airways and mediastinal contour are unremarkable. BONES AND SOFT TISSUES: No acute findings. RAD/CXR for Line Placement IMPRESSION: Right arm PICC line as above. No acute cardiopulmonary disease. Electronically Signed: Prashant Moya MD at 17:34 EDT ,
[2024-03-31] MEDS: 0.9% Normal Saline (1000mL) 1,000 ML 500 ML IV (16:25)
[2024-03-31 16:48] LABS: Bedside Glucose 215 mg/dL (74-106)
--- NOTE | 2024-03-31 17:00 | CASEMGMT ---
RN?CM?[employer]?CM?to room to meet with patient for initial transition planning/care coordination?assessment.?RN?CM?introduced self and role at [facility].? Pt voices understanding and consents to?assessment?at this time.? Pt resting in bed in no distress at this time.? Pt is A/O at this time and answers all questions appropriately.?? Care providers, pharmacy, and demographics verified/updated at this time. PCP: Dr Matt Flores Specialists: Dr Fu-oncologist @ [facility]. Dr Farooq-cardiology. Dr Hurtado-nick mgnt. Preferred Pharmacy: [facility] Insurance:[employer] Prescription Benefit:?yes Living Will/HPOA:?Has both LW and HCPOA, who is his , [facility]: , [facility]. Son, Ramsey. Pt also has another son. Living Arrangements: :Lives w/ in one-story home w/ramp entrance. Pt states he is indep w/ADL's and stands/pivots self to transfer. Pt also manages his own medications. does home mgnt tasks. Transportation:? DME: States has the following DME:?W/C accessible van, RTS, grab bars, BP machine, functioning glucometer w/supplies, power W/C. ?Pt states no need for further DME at this time.? HHC/SNF: No hx of either. Pt wishes to return home and states has no concerns with going home at time of discharge.? He states he feels better today than yesterday and feels he is getting close to his baseline. Discussed HHC. Pt states he is not sure if he wants HHC and states he will think about it. Pt made aware if he discharges home w/out HHC and changes his mind once he returns home, to f/u with his PCP. CM?to follow for any further discharge planning/needs.? Pt voices no further concerns/needs at this time.? Advised pt to ask for?CM?if any further questions/concerns/needs arise.? Voices understanding. PLAN:??Pt wishes to discharge home. Pt only able to sit @ edge of bed Sat w/therapy. Follow PT/OT and recommendations. CM to f/u with pt on Tuesday to discuss any d/c needs. He is considering HHC. Vikki BSN?RN?CM
--- NOTE | 2024-03-31 17:00 | CASEMGMT ---
RN?CM?LABORATORY SPECIALIST?CM?to room to meet with patient for initial transition planning/care coordination?assessment.?RN?CM?introduced self and role at [facility].? Pt voices understanding and consents to?assessment?at this time.? Pt resting in bed in no distress at this time.? Pt is A/O at this time and answers all questions appropriately.?? Care providers, pharmacy, and demographics verified/updated at this time. PCP: Specialists: Preferred Pharmacy: Insurance: Prescription Benefit:? Living Will/HPOA:? Pt does not currently have LW/HCPOA and declines info at this time.? Pt made aware that he can contact SW as an out-pt and make appt in the future if he decides he would like to talk with someone about this or would like to utilize [facility] social work for advanced directive completion.? Given [employer] card with information and contact number. Pt expresses understanding.? States does not have LW or HCPOA .? Interested in more information but states does not want to talk with at this time to complete paperwork.? Provided information on advanced directives and given [employer] rac card with number to call if chooses in the future to utilize [facility] social work for advanced directive completion. Educated patient that, if patient so chooses, can come back to [facility] and meet with a SW as an outpatient to complete health care advanced directives. Patient expresses understanding. LNOK: Living Arrangements: Transportation:?Pt states drives self and states no transportation concerns at this time.? DME: ? Denies using any DME and denies needs.? States has the following DME:? Pt states no need for further DME at this time.? HHC/SNF: Pt wishes to return home and states has no concerns with going home at time of discharge.? Pt states does not smoke or drink ETOH.??CM?to follow for home oxygen needs and any further discharge planning/needs.? Pt voices no further concerns/needs at this time.? Advised pt to ask for?CM?if any further questions/concerns/needs arise.? Voices understanding. PLAN:?? Vikki BSN?RN?CM
[2024-03-31] MEDS: Amiodarone 360 MG in Dextrose 5% Viaflo Bag 192.8 ML 16.7 MG CONT INF (18:15)
[2024-03-31] MEDS: Norepinephrine 8 MG in 0.9% Normal Saline (250mL Bag) 242 ML 11.3 MG CONT INF (18:20)
[2024-03-31] MEDS: Atorvastatin Calcium 10 MG Tablet PO (21:00)
[2024-03-31] MEDS: Tamsulosin HCl 0.4 MG Capsule PO (21:00)
[2024-03-31 21:26] LABS: Bedside Glucose 188 mg/dL (74-106)
[2024-04-01] VITALS (49 sets, daily range): BP systolic 81–130; BP diastolic 52–87; PULSE 74–128; RESP 10–21; TEMP 36.5–37.1; O2SAT 95–100; BMI 29.5
[2024-04-01] MEDS: 0.9% Saline Lock 10 ML Syringe IV ×3 (05:37→22:03)
[2024-04-01] MEDS: Gabapentin 400 MG Capsule PO ×3 (05:37→22:02)
[2024-04-01] MEDS: Amiodarone 360 MG in Dextrose 5% Viaflo Bag 192.8 ML 16.7 MG CONT INF ×2 (05:38→18:10)
[2024-04-01 05:44] LABS: Absolute Lymphocyte Count 0.57 X10^3/uL (0.83-4.51); Basophil# 0.01 X10^3/uL; Basophil% 0.1 % (0-1); Eosinophil# 0.02 X10^3/uL; Eosinophils% 0.3 % (0-5); Hematocrit 29.5 % (40-54); Hemoglobin 9.5 g/dL (13.0-16.5); Lymphocyte # 0.57 X10^3/ul (0.83-4.51); Lymphocyte % 7.9 % (19-41); Mean Corp Hgb Conc 32.2 g/dL (32-36); Mean Corpuscular Hgb 33.5 pg (27.0-32.0); Mean Corpuscular Volume 103.9 fL (80-94); Mean Platelet Vol. 11.8 fl (6.2-12.0); Monocyte# 0.55 X10^3/uL; Monocyte% 7.6 % (0-10); NRBC Flagged by Analyzer 0 % (0-5); Neutrophil % 83.3 % (47-70); POSITIVE COUNT YES; POSITIVE DIFFERENTIAL YES; Platelet Count 57 K/mm3 (150-450); RBC Distribution Width CV 14.2 % (11.6-14.6); RBC Distribution Width SD 54.4 fl (35.1-43.9); Red Blood Count 2.84 M/mm3 (4.6-6.2); White Blood Count 7.2 K/mm3 (4.4-11.0)
[2024-04-01 05:51] LABS: Differential Indicated SCAN CRITERIA MET
[2024-04-01 05:53] LABS: Differential Comment SCANNED
[2024-04-01 06:11] LABS: Anion Gap 6 (5-15); BUN 40 mg/dL (7-18); BUN/Creat Ratio 40.5 RATIO (10-20); Calcium,Total 8.1 mg/dL (8.5-10.1); Chloride 114 mmol/L (98-107); Creatinine, Serum 0.99 mg/dL (0.70-1.30); EST Glomerular Filtration Rate 77 mL/min (>60); Est Glom Filt Rate - Afr Amer 94 mL/min (>60); Estimated Creatinine Clearance 67.21 ml/min; Glucose 168 mg/dL (74-106); Potassium 3.5 mmol/L (3.5-5.1); Sodium Level 142 mmol/L (136-145)
[2024-04-01] MEDS: Cholecalciferol (VIT D3) 25 MCG TABLET (1,000 UNITS) PO (08:56)
[2024-04-01] MEDS: Aspirin 81 MG TAB.CHEW PO (08:56)
[2024-04-01] MEDS: Pyridoxine HCl 100 MG Tablet PO (08:56)
[2024-04-01] MEDS: Loratadine 10 MG Tablet PO (08:56)
[2024-04-01] MEDS: Famotidine 20 MG Tablet PO (08:56)
[2024-04-01] MEDS: APIXABAN 5 MG TABLET PO ×2 (08:57→22:02)
[2024-04-01] MEDS: Multivitamins,Therapeutic Tablet 1 TABLET PO (08:58)
[2024-04-01] MEDS: IBRUTINIB 420 MG TABLET PO (08:58)
[2024-04-01] MEDS: Ceftriaxone 2 GM in 0.9% Normal Saline (50mL MB+) 50 ML IV (09:00)
[2024-04-01 09:16] LABS: Bedside Glucose 148 mg/dL (74-106)
--- NOTE | 2024-04-01 09:23 | PCM.PN.HOSP ---
Subjective Subjective Doing well, no issues overnight. Has been able to wean off the Levophed as we have come down on his Cardizem and amiodarone Objective Data Objective Data Vital Signs: Vital Signs Temp Pulse Resp BP Pulse Ox O2 Del Method O2 Flow Rate 97.7 F L 94 16 102/63 100 Room Air 2 04/01/24 00:00 04/01/24 07:00 04/01/24 07:00 04/01/24 07:00 04/01/24 07:00 04/01/24 08:00 03/31/24 16:00 Oxygen Flow Rate (L/min) 2 Oxygen Delivery Method Room Air Weight: 206 lb 2.115 oz Body Mass Index (BMI) 29.5 Intake & Output: Intake and Output for Last 24 Hours 03/31/24 04/01/24 04/02/24 03:59 03:59 03:59 Intake Total 1046.33 / 1061.33 4118.95 / 4128.35 1207.50 / 1207.50 Output Total 2425 / 2425 1000 / 1000 Balance 1026.33 / 1041.33 1693.95 / 1703.35 207.50 / 207.50 Lab / Micro Data 04/01/24 05:15 04/01/24 05:15 Labs: Laboratory Results - last 24 hr 03/31/24 11:31: POC Glucose 208 H 03/31/24 16:29: POC Glucose 215 H 03/31/24 20:58: POC Glucose 188 H 04/01/24 05:15: WBC 7.2, RBC 2.84 L, Hgb 9.5 L, Hct 29.5 L, MCV 103.9 H, MCH 33.5 H, MCHC 32.2, RDW Std Deviation 54.4 H, RDW Coeff of Jacinda 14.2, Plt Count 57 L, MPV 11.8, Immature Gran % (Auto) 0.800, Neut % (Auto) 83.3 H, Lymph % (Auto) 7.9 L, [place] % (Auto) 7.6, Eos % (Auto) 0.3, Baso % (Auto) 0.1, Absolute Neuts (auto) 6.0, Absolute Lymphs (auto) 0.57 L, Nucleated RBC % 0, Differential Comment SCANNED, Sodium 142, Potassium 3.5, Chloride 114 H, Carbon Dioxide 22.0, Anion Gap 6, BUN 40 H, Creatinine 0.99, Estim Creat Clear Calc 67.21, Est GFR (MDRD) Af Amer 94, Est GFR (MDRD) Non-Af 77, BUN/Creatinine Ratio 40.5 H, Glucose 168 H, Calcium 8.1 L 04/01/24 08:55: POC Glucose 148 H Radiography Diagnostic Testing: Radiology Impression Echocardiogram 03/30/24 22:31 Interpretation Summary The estimated ejection fraction is 60 %. No evidence for diastolic dysfunction. Basal inferior hypokinesis The left atrium is mildly enlarged. Trivial mitral valve insufficiency. Ordering Physician: Pedro Landaverde Referring Physician: Matt Flores Performed By: Idalmis Jaramillo, ORTEGA, RVT Chest X-Ray 03/31/24 16:18 IMPRESSION: Right arm PICC line as above. No acute cardiopulmonary disease. Electronically Signed: Prashant Moya MD at 17:34 EDT Reading Location ID and State: [address] [place] [address] Tel , Service support , Physical Exam Narrative General: Alert, Oriented x3, Cooperative, No apparent distress HEENT: Atraumatic, PERRLA, EOMI, Normocephalic Oral: Moist Mucosa Neck: Supple, No JVD Lungs: Diminished, Normal air movement, No rhonchi, No wheeze, No rales Cardiovascular: Irregular rate and rhythm, Normal S1, Normal S2, No murmurs Abdomen: Soft, Non Tender, Non-Distended, No Hepato-splenomegaly Extremities: No edema, Capillary Refill Less than 3 Seconds Skin: No rashes, No breakdown Musculoskeletal: No Tenderness to Palpation of Joints or Extremities Neurological: No focal neurological deficits, Motor Exam 5/5 strength throughout, Sensory exam intact to light touch and pain Psych/Mental Status: Flat Assessment & Plan Assessment/Plan (1) Sepsis: (2) UTI (urinary tract infection): (3) New onset a-fib: (4) MARIA DOLORES (acute kidney injury): PLAN: Plan 1. Sepsis secondary to UTI with possible bacteremia/MARIA DOLORES ? Continue with antibiotics ? Continue with IV fluids ? Blood and urine cultures are pending ? Pressor support is due to the A-fib and Cardizem/amiodarone use ? Creatinine at the outside hospital is around 1.85, baseline is a little less than 1, will continue to monitor 2. New onset A-fib with RVR/CAD status post stent/essential HTN/HLD ? Echo with an EF of 60% and no diastolic dysfunction ? Appreciate cardiology's assistance ? Will change to amiodarone instead of the Cardizem given the hypotension and the need for pressor support ? Continue with aspirin and statin 3. 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 Continue with sliding scale ? Accu-Cheks ACHS ? Will monitor and make adjustments as necessary ? Will hold metformin ? Will continue with gabapentin as renal function is improving 4. Acute on chronic debility, history of spinal stenosis with impaired mobility/CLL ? PT/OT/case management consulted. Reportedly with poor functional status, essentially unable to walk at baseline for last few years. Now weaker than baseline suspected due to sepsis as noted above. 5. BPH with obstructive symptoms ? Continue home Flomax. ? Ken is in place 6. GERD ? Stable ? Continue with Pepcid DVT: Eliquis Charges/Coding Visit Charges Inpatient E&M: 97849 Subs Hosp L2
[2024-04-01] MEDS: 0.9% Normal Saline (1000mL) 1,000 ML 100 ML IV ×2 (09:50→17:23)
[2024-04-01] MEDS: Insulin Lispro 100 UNIT/ML INSULN.PEN SC ×2 (11:34→16:16)
[2024-04-01 11:42] LABS: Bedside Glucose 178 mg/dL (74-106)
[2024-04-01 16:36] LABS: Bedside Glucose 161 mg/dL (74-106)
--- NOTE | 2024-04-01 18:02 | PN.CARD_ITS ---
Subjective Subjective Denies cardiac complaints. Still in A-fib with RVR. Off Levophed. Almost 24 hours of amiodarone completed. Objective Data Vital Signs: Vital Signs Temp Pulse Resp BP Pulse Ox O2 Del Method O2 Flow Rate 97.8 F 123 H 18 81/71 L 96 Room Air 2 04/01/24 11:55 04/01/24 17:00 04/01/24 17:00 04/01/24 17:00 04/01/24 17:00 04/01/24 17:00 03/31/24 16:00 Oxygen Flow Rate (L/min) 2 Oxygen Delivery Method Room Air Weight: 206 lb 2.115 oz Body Mass Index (BMI) 29.5 Intake & Output: Intake and Output for Last 24 Hours 03/30/24 03/31/24 04/01/24 23:59 23:59 23:59 Intake Total 3.83 / 11.33 5130.90 / 5133.25 2978.35 / 2978.35 Output Total 2445 / 2445 2024 / 2024 Balance 3.83 / -8.67 2685.90 / 2688.25 953.35 / 953.35 Lab / Micro Data 04/01/24 05:15 04/01/24 05:15 Labs: Laboratory Results - last 24 hr 03/30/24 23:54: Urine Color Brown, Urine Clarity Turbid, Urine pH 6.5, Ur Specific [place] 1.015, Urine Protein 500 H, Urine Glucose (UA) Normal, Urine Ketones 15 H, Urine Occult Blood 250 H, Urine Nitrite Positive H, Urine Bilirubin Negative, Urine Urobilinogen 1 H, Ur Leukocyte Esterase 500 H, Urine RBC > 100 SEEN, Urine WBC >100 SEEN, Ur Squamous Epith Cells 0 SEEN, Urine Bacteria 2+, Urine Mucus 0 SEEN 03/31/24 20:58: POC Glucose 188 H 04/01/24 05:15: WBC 7.2, RBC 2.84 L, Hgb 9.5 L, Hct 29.5 L, MCV 103.9 H, MCH 33.5 H, MCHC 32.2, RDW Std Deviation 54.4 H, RDW Coeff of Jacinda 14.2, Plt Count 57 L, MPV 11.8, Immature Gran % (Auto) 0.800, Neut % (Auto) 83.3 H, Lymph % (Auto) 7.9 L, [place] % (Auto) 7.6, Eos % (Auto) 0.3, Baso % (Auto) 0.1, Absolute Neuts (auto) 6.0, Absolute Lymphs (auto) 0.57 L, Nucleated RBC % 0, Differential Comment SCANNED, Sodium 142, Potassium 3.5, Chloride 114 H, Carbon Dioxide 22.0, Anion Gap 6, BUN 40 H, Creatinine 0.99, Estim Creat Clear Calc 67.21, Est GFR (MDRD) Af Amer 94, Est GFR (MDRD) Non-Af 77, BUN/Creatinine Ratio 40.5 H, G lucose 168 H, Calcium 8.1 L 04/01/24 08:55: POC Glucose 148 H 04/01/24 11:20: POC Glucose 178 H 04/01/24 16:03: POC Glucose 161 H Micro: Microbiology 03/30/24 23:54 Urine, Clean Catch Urine Culture - Preliminary Gram negative faye Cardiology Labs/Tests 03/30/24 23:54: Urine Color Brown, Urine Clarity Turbid, Urine pH 6.5, Ur Specific [place] 1.015, Urine Protein 500 H, Urine Glucose (UA) Normal, Urine Ketones 15 H, Urine Occult Blood 250 H, Urine Nitrite Positive H, Urine Bilirubin Negative, Urine Urobilinogen 1 H, Ur Leukocyte Esterase 500 H, Urine RBC > 100 SEEN, Urine WBC >100 SEEN 04/01/24 05:15: WBC 7.2, RBC 2.84 L, Hgb 9.5 L, Hct 29.5 L, MCV 103.9 H, MCH 33.5 H, MCHC 32.2, Plt Count 57 L, MPV 11.8, Immature Gran % (Auto) 0.800, Neut % (Auto) 83.3 H, Lymph % (Auto) 7.9 L, [place] % (Auto) 7.6, Eos % (Auto) 0.3, Baso % (Auto) 0.1, Absolute Neuts (auto) 6.0, Nucleated RBC % 0, Sodium 142, Potassium 3.5, Chloride 114 H, Carbon Dioxide 22.0, Anion Gap 6, BUN 40 H, Creatinine 0.99, Est GFR (MDRD) Af Amer 94, Est GFR (MDRD) Non-Af 77, B UN/Creatinine Ratio 40.5 H, Glucose 168 H, Calcium 8.1 L Rhythm: EKG: ECHO: Stress Test: Cardiac Cath: PCI: CT Surgery: Holter monitor: EPS: PPM: CXR: Chest CT Scan: Physical Exam Const alert HEENT normocephalic Eyes no scleral icterus Resp normal respiratory effort Cardio Cardio Narrative: Irregular rhythm Assessment & Plan Assessment/Plan (1) New onset a-fib: PLAN: Reasonable to continue IV amiodarone overnight. We may be able to converted to p.o. amiodarone tomorrow morning. Will try giving 2 doses of digoxin. Patient will also get his p.m. dose of metoprolol if his blood pressure is able to tolerate. Agree with Holly. (2) History of coronary artery stent placement: PLAN: Continue present management. (3) Essential (primary) hypertension: Charges/Coding Visit Charges Inpatient E&M: 04359 Subs Hosp L1
[2024-04-01] MEDS: Digoxin 250 MCG/ML Ampul IV ×2 (18:26→22:03)
[2024-04-01] MEDS: LORazepam 1 MG Tablet PO (22:02)
[2024-04-01] MEDS: Tamsulosin HCl 0.4 MG Capsule PO (22:02)
[2024-04-01] MEDS: Atorvastatin Calcium 10 MG Tablet PO (22:02)
[2024-04-01] MEDS: Metoprolol Tartrate 25 MG Tablet PO (22:02)
[2024-04-01 22:28] LABS: Bedside Glucose 136 mg/dL (74-106)
[2024-04-02] VITALS (21 sets, daily range): BP systolic 93–131; BP diastolic 41–84; PULSE 83–111; RESP 12–27; TEMP 36.2–36.7; O2SAT 93–100; BMI 29.7
[2024-04-02] MEDS: 0.9% Normal Saline (1000mL) 1,000 ML 150 ML IV ×2 (00:15→07:00)
[2024-04-02] MEDS: Gabapentin 400 MG Capsule PO ×3 (05:32→21:24)
[2024-04-02] MEDS: traMADol 50 MG Tablet PO ×2 (05:41→21:28)
[2024-04-02 05:48] LABS: Absolute Lymphocyte Count 0.66 X10^3/uL (0.83-4.51); Absolute Neutrophil Count 3.7 X10^3/uL (2.0-7.7); Basophil# 0.02 X10^3/uL; Basophil% 0.4 % (0-1); Eosinophil# 0.01 X10^3/uL; Eosinophils% 0.2 % (0-5); Hematocrit 27.3 % (40-54); Hemoglobin 8.7 g/dL (13.0-16.5); Lymphocyte # 0.66 X10^3/ul (0.83-4.51); Lymphocyte % 13.9 % (19-41); Mean Corp Hgb Conc 31.9 g/dL (32-36); Mean Corpuscular Hgb 33.5 pg (27.0-32.0); Mean Platelet Vol. 11.3 fl (6.2-12.0); Monocyte# 0.32 X10^3/uL; Monocyte% 6.8 % (0-10); NRBC Flagged by Analyzer 0 % (0-5); Neutrophil # 3.68 X10^3/uL (2.7-7.7); Neutrophil % 77.6 % (47-70); POSITIVE COUNT YES; RBC Distribution Width CV 14.4 % (11.6-14.6); White Blood Count 4.7 K/mm3 (4.4-11.0)
[2024-04-02 05:49] LABS: Differential Indicated SCAN CRITERIA MET
[2024-04-02 05:52] LABS: Platelet Count 50 K/mm3 (150-450)
[2024-04-02 06:13] LABS: Anion Gap 4 (5-15); BUN 26 mg/dL (7-18); BUN/Creat Ratio 36.1 RATIO (10-20); Calcium,Total 7.7 mg/dL (8.5-10.1); Chloride 118 mmol/L (98-107); Creatinine, Serum 0.72 mg/dL (0.70-1.30); EST Glomerular Filtration Rate 111 mL/min (>60); Est Glom Filt Rate - Afr Amer 135 mL/min (>60); Estimated Creatinine Clearance 83.46 ml/min; Glucose 124 mg/dL (74-106); Potassium 3.6 mmol/L (3.5-5.1); Sodium Level 145 mmol/L (136-145)
[2024-04-02] MEDS: Amiodarone 360 MG in Dextrose 5% Viaflo Bag 192.8 ML 16.7 MG CONT INF (07:00)
[2024-04-02] MEDS: Metoprolol Tartrate 25 MG Tablet PO ×2 (07:52→21:25)
[2024-04-02] MEDS: APIXABAN 5 MG TABLET PO ×2 (07:53→21:25)
[2024-04-02] MEDS: Aspirin 81 MG TAB.CHEW PO (07:53)
[2024-04-02] MEDS: Multivitamins,Therapeutic Tablet 1 TABLET PO (07:53)
[2024-04-02] MEDS: IBRUTINIB 420 MG TABLET PO (07:53)
[2024-04-02] MEDS: Loratadine 10 MG Tablet PO (07:54)
[2024-04-02] MEDS: Pyridoxine HCl 100 MG Tablet PO (07:54)
[2024-04-02] MEDS: Cholecalciferol (VIT D3) 25 MCG TABLET (1,000 UNITS) PO (07:54)
[2024-04-02] MEDS: Famotidine 20 MG Tablet PO (07:56)
[2024-04-02] MEDS: Ceftriaxone 2 GM in 0.9% Normal Saline (50mL MB+) 50 ML IV (07:56)
[2024-04-02 08:13] LABS: Bedside Glucose 102 mg/dL (74-106)
[2024-04-02 11:23] LABS: Bedside Glucose 141 mg/dL (74-106)
--- NOTE | 2024-04-02 11:59 | PN.HOSP_ITS ---
Subjective Subjective Doing well, no issues overnight. Feeling much better today. Objective Data Objective Data Vital Signs: Vital Signs Temp Pulse Resp BP Pulse Ox O2 Del Method O2 Flow Rate 97.4 F L 89 20 H 120/79 97 Room Air 2 04/02/24 08:00 04/02/24 11:00 04/02/24 11:00 04/02/24 11:00 04/02/24 11:00 04/02/24 11:00 03/31/24 16:00 Oxygen Flow Rate (L/min) 2 Oxygen Delivery Method Room Air Weight: 207 lb 10.807 oz Body Mass Index (BMI) 29.7 Intake & Output: Intake and Output for Last 24 Hours 04/01/24 04/02/24 04/03/24 03:59 03:59 03:59 Intake Total 4118.95 / 4128.35 4266.13 / 4266.13 1690 / 1690 Output Total 2425 / 2425 2775 / 2775 1650 / 1650 Balance 1693.95 / 1703.35 1491.13 / 1491.13 40 / 40 Lab / Micro Data 04/02/24 05:35 04/02/24 05:35 Labs: Laboratory Results - last 24 hr 03/30/24 23:54: Urine Color Brown, Urine Clarity Turbid, Urine pH 6.5, Ur Specific [place] 1.015, Urine Protein 500 H, Urine Glucose (UA) Normal, Urine Ketones 15 H, Urine Occult Blood 250 H, Urine Nitrite Positive H, Urine Bilirubin Negative, Urine Urobilinogen 1 H, Ur Leukocyte Esterase 500 H, Urine RBC > 100 SEEN, Urine WBC >100 SEEN, Ur Squamous Epith Cells 0 SEEN, Urine Bacteria 2+, Urine Mucus 0 SEEN 04/01/24 16:03: POC Glucose 161 H 04/01/24 21:59: POC Glucose 136 H 04/02/24 05:35: WBC 4.7, RBC 2.60 L, Hgb 8.7 L, Hct 27.3 L, MCV 105.0 H, MCH 33.5 H, MCHC 31.9 L, RDW Std Deviation 55.0 H, RDW Coeff of Jacinda 14.4, Plt Count 50 L*, MPV 11.3, Immature Gran % (Auto) 1.100 H, Neut % (Auto) 77.6 H, Lymph % (Auto) 13.9 L, [place] % (Auto) 6.8, Eos % (Auto) 0.2, Baso % (Auto) 0.4, Absolute Neuts (auto) 3.7, Absolute Lymphs (auto) 0.66 L, Nucleated RBC % 0, Diff Path Review May foll, Sodium 145, Potassium 3.6, Chloride 118 H, Carbon Dioxide 23.0, Anion Gap 4 L, BUN 26 H, Creatinine 0.72, Estim Creat Clear Calc 83.46, Est GFR (MDRD) Af Amer 135, Est GFR (MDRD) Non-Af 111, BUN/Creatinine Ratio 36.1 H, G lucose 124 H, Calcium 7.7 L 04/02/24 07:45: POC Glucose 102 04/02/24 11:05: POC Glucose 141 H Micro: Microbiology 03/30/24 23:54 Urine, Clean Catch Urine Culture - Final Escherichia coli Physical Exam Narrative General: Alert, Oriented x3, Cooperative, No apparent distress HEENT: Atraumatic, PERRLA, EOMI, Normocephalic Oral: Moist Mucosa Neck: Supple, No JVD Lungs: Diminished, Normal air movement, No rhonchi, No wheeze, No rales Cardiovascular: Irregular rate and rhythm, Normal S1, Normal S2, No murmurs Abdomen: Soft, Non Tender, Non-Distended, No Hepato-splenomegaly Extremities: No edema, Capillary Refill Less than 3 Seconds Skin: No rashes, No breakdown Musculoskeletal: No Tenderness to Palpation of Joints or Extremities Neurological: No focal neurological deficits, Motor Exam 5/5 strength throughout, Sensory exam intact to light touch and pain Psych/Mental Status: Flat Assessment & Plan Assessment/Plan (1) Sepsis: (2) UTI (urinary tract infection): (3) New onset a-fib: (4) MARIA DOLORES (acute kidney injury): PLAN: Plan 1. Sepsis secondary to UTI with possible bacteremia/MARIA DOLORES ? Continue with antibiotics ? Continue with IV fluids ? Blood and urine cultures are pending, cultures from the outside hospital are demonstrating E. coli in blood and urine will await sensitivities ? Off of pressor support at this point, will transition amiodarone to 200 mg p.o. twice daily for 3 days ? Creatinine at the outside hospital is around 1.85, baseline is a little less than 1, will continue to monitor 2. New onset A-fib with RVR/CAD status post stent/essential HTN/HLD ? Echo with an EF of 60% and no diastolic dysfunction ? Appreciate cardiology's assistance ? Continue with metoprolol and amiodarone given the improvement in his blood pressures ? Continue with aspirin and statin 3. Anemia with thrombocytopenia ? Unclear as to the etiology of the anemia could be volume related given the amount of fluids he has received, will continue to monitor ? Has had chronic thrombocytopenia however today he is at 50,000 which could be related to his sepsis however will continue to monitor and if his platelet count and hemoglobin continue to decrease we will need to discontinue Eliquis. It does not appear that he is having any bloody stools in his urine is clear 4. 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 Continue with sliding scale ? Accu-Cheks ACHS ? Will monitor and make adjustments as necessary ? Will hold metformin ? Will continue with gabapentin as renal function is improving 5. Acute on chronic debility, history of spinal stenosis with impaired mobility/CLL ? PT/OT/case management consulted. Reportedly with poor functional status, essentially unable to walk at baseline for last few years. Now weaker than baseline suspected due to sepsis as noted above. 6. BPH with obstructive symptoms ? Continue home Flomax. ? Ken is in place 7. GERD ? Stable ? Continue with Pepcid DVT: Eliquis Charges/Coding Visit Charges Inpatient E&M: 81737 Subs Hosp L2
[2024-04-02] MEDS: Amiodarone 200 MG Tablet PO (12:53)
--- NOTE | 2024-04-02 14:25 | CASEMGMT ---
Addendum entered by Cierra Rowland 04/02/24 15:29: Carlota from [facility] returns call and states that [facility] can accept the pt. CM to follow and update [facility] with projected DC date to then receive a SOC date. Original Note: RN CM to pt room regarding DC planning. This RN CM reviewed how the pt did with therapy as well as pt needs at home. Pt states that he has been considering HHC and now states that he would like this set up. Pt denies wanting to view a list of local in-network C agencies and states that he would like to go through [facility]. TC to [facility] and referral made to Carlota for SN, PT, & OT. Awaiting return response. CM to follow.
[2024-04-02 16:39] LABS: Bedside Glucose 100 mg/dL (74-106)
[2024-04-02] MEDS: Atorvastatin Calcium 10 MG Tablet PO (21:24)
[2024-04-02] MEDS: LORazepam 1 MG Tablet PO (21:24)
[2024-04-02] MEDS: Tamsulosin HCl 0.4 MG Capsule PO (21:25)
[2024-04-02 22:26] LABS: Bedside Glucose 128 mg/dL (74-106)
[2024-04-03] VITALS (8 sets, daily range): BP systolic 118–126; BP diastolic 62–72; PULSE 68–99; RESP 14–18; TEMP 36.4–36.9; O2SAT 94–100; BMI 29.7
[2024-04-03] MEDS: Gabapentin 400 MG Capsule PO ×3 (06:26→21:47)
[2024-04-03 06:45] LABS: Bedside Glucose 105 mg/dL (74-106)
--- NOTE | 2024-04-03 09:00 | PCM.PN.CARD ---
Subjective Subjective Patient seen and evaluated. Events of the weekend reviewed. Objective Data Vital Signs: Vital Signs Temp Pulse Resp BP Pulse Ox O2 Del Method O2 Flow Rate 98.1 F 68 17 120/62 94 Room Air 2 04/03/24 05:00 04/03/24 05:00 04/03/24 05:00 04/03/24 05:00 04/03/24 05:00 04/03/24 07:29 03/31/24 16:00 Oxygen Flow Rate (L/min) 2 Oxygen Delivery Method Room Air Weight: 208 lb 1.862 oz Body Mass Index (BMI) 29.7 Intake & Output: Intake and Output for Last 24 Hours 04/01/24 04/02/24 04/03/24 23:59 23:59 23:59 Intake Total 2978.35 / 3328.35 3871.58 / 4111.58 480 / 480 Output Total 5 / 5 2500 / 2500 1350 / 1350 Balance 953.35 / 553.35 1371.58 / 1611.58 -870 / -870 Lab / Micro Data 04/02/24 05:35 04/02/24 05:35 Labs: Laboratory Results - last 24 hr 04/02/24 11:05: POC Glucose 141 H 04/02/24 16:20: POC Glucose 100 04/02/24 21:23: POC Glucose 128 H 04/03/24 06:25: POC Glucose 105 Micro: Microbiology 03/30/24 23:54 Urine, Clean Catch Urine Culture - Final Escherichia coli Cardiology Labs/Tests Rhythm: EKG: ECHO: Stress Test: Cardiac Cath: PCI: CT Surgery: Holter monitor: EPS: PPM: CXR: Chest CT Scan: Physical Exam Const alert, oriented x3 and no apparent distress General Appearance: cooperative HEENT hearing grossly normal bilaterally Head and Scalp: atraumatic Eyes EOMs intact bilaterally Neck General: normal visual inspection Chest inspection of chest normal and palpation of chest normal Resp normal respiratory effort Auscultation: clear to auscultation bilaterally Cardio S1 normal heart sound and S2 normal heart sound Jugular Venous Distention: JVD Rhythm: abnormal rhythm irregularly irregular GI normal to inspection, nondistended, normoactive bowel sounds Extremity normal capillary refill and no pedal edema Peripheral Pulses: Yes pulses 2+ throughout and femoral pulses present Skin no rashes or lesions noted Neuro oriented x3 and CN's II-XII intact bilaterally Psych Appearance: grossly normal and appropriate Assessment & Plan Assessment/Plan (1) New onset a-fib: PLAN: Patient is still in atrial fibrillation but with a controlled ventricular response rate. Will continue with p.o. amiodarone as well as with beta-cedrick Also continue with anticoagulation. He is on ibrutinib for his CLL which could induce atrial fibrillation. Will recommend continuing it for now. (2) History of coronary artery stent placement: PLAN: Continue present management. Patient has not had any angina at this time. (3) Essential (primary) hypertension: PLAN: Blood pressure is under good control I would not recommend making any major changes.
[2024-04-03] MEDS: Amiodarone 200 MG Tablet PO ×2 (10:29→18:53)
[2024-04-03] MEDS: Multivitamins,Therapeutic Tablet 1 TABLET PO (10:29)
[2024-04-03] MEDS: Aspirin 81 MG TAB.CHEW PO (10:29)
[2024-04-03] MEDS: Loratadine 10 MG Tablet PO (10:29)
[2024-04-03] MEDS: Pyridoxine HCl 100 MG Tablet PO (10:30)
[2024-04-03] MEDS: IBRUTINIB 420 MG TABLET PO (10:30)
[2024-04-03] MEDS: Metoprolol Tartrate 25 MG Tablet PO ×2 (10:30→21:48)
[2024-04-03] MEDS: Cholecalciferol (VIT D3) 25 MCG TABLET (1,000 UNITS) PO (10:30)
[2024-04-03] MEDS: APIXABAN 5 MG TABLET PO (10:30)
[2024-04-03] MEDS: Famotidine 20 MG Tablet PO (10:30)
[2024-04-03] MEDS: Ceftriaxone 2 GM in 0.9% Normal Saline (50mL MB+) 50 ML IV (10:46)
[2024-04-03] MEDS: 0.9% Saline Lock 10 ML Syringe IV ×2 (10:46→21:53)
[2024-04-03] MEDS: traMADol 50 MG Tablet PO ×2 (10:57→21:51)
[2024-04-03 11:42] LABS: Bedside Glucose 125 mg/dL (74-106)
--- NOTE | 2024-04-03 12:59 | WOUNDNOTE ---
wound photo: left medial heel
[2024-04-03 14:49] LABS: Pathologist Review Reviewed
--- NOTE | 2024-04-03 15:47 | PCM.PN.HOSP ---
Subjective Subjective Doing well, blood culture outside hospital with pansensitive E. coli, repeat blood cultures here are negative Objective Data Objective Data Vital Signs: Vital Signs Temp Pulse Resp BP Pulse Ox O2 Del Method O2 Flow Rate 98 F 72 14 122/72 H 96 Room Air 2 04/03/24 15:45 04/03/24 15:45 04/03/24 15:45 04/03/24 15:45 04/03/24 15:45 04/03/24 15:45 03/31/24 16:00 Oxygen Flow Rate (L/min) 2 Oxygen Delivery Method Room Air Weight: 208 lb 1.862 oz Body Mass Index (BMI) 29.7 Intake & Output: Intake and Output for Last 24 Hours 04/02/24 04/03/24 04/04/24 03:59 03:59 03:59 Intake Total 4266.13 / 4266.13 2793.25 / 2793.25 770 / 770 Output Total 2775 / 2775 1750 / 1750 1450 / 1450 Balance 1491.13 / 1491.13 1043.25 / 1043.25 -680 / -680 Lab / Micro Data 04/02/24 05:35 04/02/24 05:35 Labs: Laboratory Results - last 24 hr 04/02/24 05:35: Diff Path Review Reviewed 04/02/24 16:20: POC Glucose 100 04/02/24 21:23: POC Glucose 128 H 04/03/24 06:25: POC Glucose 105 04/03/24 11:21: POC Glucose 125 H Micro: Microbiology 03/30/24 23:54 Urine, Clean Catch Urine Culture - Final Escherichia coli Physical Exam Narrative General: Alert, Oriented x3, Cooperative, No apparent distress HEENT: Atraumatic, PERRLA, EOMI, Normocephalic Oral: Moist Mucosa Neck: Supple, No JVD Lungs: Diminished, Normal air movement, No rhonchi, No wheeze, No rales Cardiovascular: Irregular rate and rhythm, Normal S1, Normal S2, No murmurs Abdomen: Soft, Non Tender, Non-Distended, No Hepato-splenomegaly Extremities: No edema, Capillary Refill Less than 3 Seconds Skin: No rashes, No breakdown Musculoskeletal: No Tenderness to Palpation of Joints or Extremities Neurological: No focal neurological deficits, Motor Exam 5/5 strength throughout, Sensory exam intact to light touch and pain Psych/Mental Status: Flat Assessment & Plan Assessment/Plan (1) Sepsis: (2) UTI (urinary tract infection): (3) New onset a-fib: (4) MARIA DOLORES (acute kidney injury): PLAN: Plan 1. Sepsis secondary to E. coli UTI and bacteremia/MARIA DOLORES ? Continue with antibiotics ? Continue with IV fluids ? Urine culture with E. coli and blood cultures here are negative for blood cultures that were followed up from the outside hospital demonstrated E. coli as well ? Off of pressor support at this point, will transition amiodarone to 200 mg p.o. twice daily for 3 days ? Creatinine at the outside hospital is around 1.85, baseline is a little less than 1, will continue to monitor 2. New onset A-fib with RVR/CAD status post stent/essential HTN/HLD ? Echo with an EF of 60% and no diastolic dysfunction ? Appreciate cardiology's assistance, he is still in A-fib with a normal heart rate ? Continue with metoprolol and amiodarone given the improvement in his blood pressures ? Continue with aspirin and statin 3. Anemia with thrombocytopenia ? Unclear as to the etiology of the anemia could be volume related given the amount of fluids he has received, will continue to monitor ? Has had chronic thrombocytopenia however today he is at 50,000 which could be related to his sepsis however will continue to monitor and if his platelet count and hemoglobin continue to decrease we will need to discontinue Eliquis. It does not appear that he is having any bloody stools and his urine is clear 4. 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 Continue with sliding scale ? Accu-Cheks ACHS ? Will monitor and make adjustments as necessary ? Will hold metformin ? Will continue with gabapentin as renal function is improving 5. Acute on chronic debility, history of spinal stenosis with impaired mobility/CLL ? PT/OT/case management consulted. Reportedly with poor functional status, essentially unable to walk at baseline for last few years. Now weaker than baseline suspected due to sepsis as noted above. 6. BPH with obstructive symptoms ? Continue home Flomax. ? Ken is in place 7. GERD ? Stable ? Continue with Pepcid DVT: Eliquis Charges/Coding Visit Charges Inpatient E&M: 01396 Subs Hosp L2
[2024-04-03 17:39] LABS: Bedside Glucose 112 mg/dL (74-106)
[2024-04-03] MEDS: Atorvastatin Calcium 10 MG Tablet PO (21:47)
[2024-04-03] MEDS: Tamsulosin HCl 0.4 MG Capsule PO (21:48)
[2024-04-03] MEDS: LORazepam 1 MG Tablet PO (21:51)
[2024-04-03 22:19] LABS: Bedside Glucose 126 mg/dL (74-106)
[2024-04-04 03:28] VITALS: BP 108/56; PULSE 79; RESP 18; TEMP 36.3; O2SAT 93
[2024-04-04] MEDS: Gabapentin 400 MG Capsule PO (05:00)
[2024-04-04 06:36] LABS: Bedside Glucose 118 mg/dL (74-106)
[2024-04-04 06:38] LABS: Absolute Lymphocyte Count 1.02 X10^3/uL (0.83-4.51); Basophil# 0.03 X10^3/uL; Basophil% 0.4 % (0-1); Eosinophil# 0.12 X10^3/uL; Eosinophils% 1.8 % (0-5); Hematocrit 33.3 % (40-54); Hemoglobin 10.7 g/dL (13.0-16.5); Lymphocyte # 1.02 X10^3/ul (0.83-4.51); Lymphocyte % 15.2 % (19-41); Mean Corp Hgb Conc 32.1 g/dL (32-36); Mean Corpuscular Hgb 33.3 pg (27.0-32.0); Mean Corpuscular Volume 103.7 fL (80-94); Mean Platelet Vol. 11.6 fl (6.2-12.0); Monocyte# 0.45 X10^3/uL; Monocyte% 6.7 % (0-10); NRBC Flagged by Analyzer 0 % (0-5); Neutrophil # 4.97 X10^3/uL (2.7-7.7); Neutrophil % 74.1 % (47-70); POSITIVE COUNT YES; Platelet Count 76 K/mm3 (150-450); RBC Distribution Width CV 13.9 % (11.6-14.6); Red Blood Count 3.21 M/mm3 (4.6-6.2); White Blood Count 6.7 K/mm3 (4.4-11.0)
[2024-04-04 06:53] LABS: Anion Gap 7 (5-15); BUN 20 mg/dL (7-18); Calcium,Total 8.8 mg/dL (8.5-10.1); Chloride 108 mmol/L (98-107); Creatinine, Serum 0.87 mg/dL (0.70-1.30); EST Glomerular Filtration Rate 89 mL/min (>60); Est Glom Filt Rate - Afr Amer 108 mL/min (>60); Estimated Creatinine Clearance 77.12 ml/min; Glucose 127 mg/dL (74-106); Potassium 4.2 mmol/L (3.5-5.1); Sodium Level 141 mmol/L (136-145)
--- NOTE | 2024-04-04 07:03 | PCM.DC ---
Discharge Instructions Diet Discharge Diet: Low fat / Low cholesterol and Carb Control Diet Activity Discharge Activity: Return to Normal Activity Dressing / Incision Call your doctor if you observe: Fever of 101 or Higher, Shortness of breath, Dizziness, Fainting spells, Swelling in the ankles, Chest pain and Increased palpitations (irregular heartbeat) Follow Up Care Test Results: Test results from this visit will be discussed in further detail at your follow-up appointment, if applicable. Discharge Plan Admission Admit Date/Time: 03/30/24 21:04 Attending Provider: Abdias George Primary Care Provider: Matt Flores Consulting Providers: Pedro Landaverde; Jose Juan Farooq Instructions Additional Instructions / Restrictions: Please follow-up with your seasoning sprayer for your new onset A-fib as well as with your urologist for recurrent UTIs. Discharge Orders/Prescriptions Prescriptions: New amiodarone 200 mg Tablet 200 mg PO DAILY 30 Days Qty: 30 0RF Rx Instructions: Take 1 tablet twice daily for 5 more days then switch to 1 tablet daily Eliquis 5 mg Tablet 5 mg PO BID 30 Days Qty: 60 0RF cefdinir 300 mg capsule 300 mg PO BID 10 Days Qty: 20 0RF Continued Imbruvica 420 mg tablet 420 mg PO DAILY loratadine 10 mg capsule 10 mg PO DAILY famotidine [Acid [employer]iology [employer] Procedure Tech (famotidine)] 20 mg tablet 20 mg PO DAILY metformin 500 mg tablet extended release 24 hr 500 mg PO BID cholecalciferol (vitamin D3) 25 mcg (1,000 unit) tablet 25 mcg PO DAILY gabapentin 600 mg tablet 600 mg PO TID metoprolol succinate 25 mg tablet extended release 24 hr 25 mg PO DAILY Qty: 90 4RF simvastatin 20 mg tablet 20 mg PO DAILY Qty: 90 4RF lisinopril 10 mg tablet 10 mg PO DAILY Qty: 90 4RF nitroglycerin 0.4 mg tablet, sublingual 0.4 mg SUBLINGUAL Q5M PRN (Reason: chest pain) Qty: 25 3RF meloxicam 15 MG tablet 15 mg PO DAILY Patient Comments: ANTI-INFLAMMATORY tramadol 50 MG tablet 50 mg PO Q4H PRN PRN (Reason: Pain) Patient Comments: PAIN aspirin 81 MG tablet,chewable 81 mg PO DAILY@0800 Patient Comments: [facility] allopurinol 300 MG tablet 300 mg PO DAILY Patient Comments: GOUT pyridoxine (vitamin B6) 100 MG tablet 100 mg PO DAILY Patient Comments: SUPPLEMENT lorazepam 1 MG tablet 1 mg PO QHS Patient Comments: ANXIETY multivitamin with folic acid 1 TABLET tablet 1 tab PO DAILY Patient Comments: SUPPLEMENT tamsulosin [Flomax] 0.4 mg capsule 0.4 mg PO DAILY Referrals / Follow Up: Matt Flores DO [Primary Care Provider] - Within 1 Week Jose Juan Farooq MD [Med Staff - Active Staff] - Within 1 Month Jerrod Moss MD [Med Staff - Active Staff] - Within 3 Months Disposition Disposition (needs filled in before D/C Order can be placed): Home, Self Care
[2024-04-04 09:08] VITALS: BP 102/52; PULSE 98; RESP 16; TEMP 36.3; O2SAT 100
[2024-04-04 09:16] VITALS: PULSE 98
[2024-04-04] MEDS: Loratadine 10 MG Tablet PO (09:16)
[2024-04-04] MEDS: Aspirin 81 MG TAB.CHEW PO (09:16)
[2024-04-04] MEDS: Multivitamins,Therapeutic Tablet 1 TABLET PO (09:16)
[2024-04-04] MEDS: Metoprolol Tartrate 25 MG Tablet PO (09:16)
[2024-04-04] MEDS: IBRUTINIB 420 MG TABLET PO (09:16)
[2024-04-04] MEDS: Amiodarone 200 MG Tablet PO (09:16)
[2024-04-04] MEDS: Famotidine 20 MG Tablet PO (09:17)
[2024-04-04] MEDS: Cholecalciferol (VIT D3) 25 MCG TABLET (1,000 UNITS) PO (09:17)
[2024-04-04] MEDS: Pyridoxine HCl 100 MG Tablet PO (09:17)
[2024-04-04] MEDS: Ceftriaxone 2 GM in 0.9% Normal Saline (50mL MB+) 50 ML IV (09:22)
[2024-04-04] MEDS: 0.9% Saline Lock 10 ML Syringe IV (09:22)
--- NOTE | 2024-04-04 10:16 | CASEMGMT ---
Patient has order for discharge. COLTEN LANZA called and updated [facility], start of care planned for tomorrow. Patient discharging on Eliquis, no copay per [facility]. COLTEN LANZA in to discuss needs at discharge. COLTEN LANZA updated patient regarding planned start of care for tomorrow with [facility]. Patient states he is at his baseline. Patient denied further questions or concerns.
--- NOTE | 2024-04-04 10:58 | PHA.DC.MC.R ---
Pharmacy [facility] has performed discharge medication reconciliation and counseling for this patient. 1. CEFDINIR 300MG PO BID X 10 DAYS 2. APIXABAN 5MG PO BID 3. AMIODARONE 200MG PO BID X 5 DAYS, THEN DAILY THEREAFTER The patient's discharge medication list was reviewed for discrepancies and discrepancies were resolved. The patient was counseled on the following discharge medications and changes in medications for homegoing were reviewed. The Reason for Use, instructions for use, and potential side effects were reviewed for all new medications. The patient's questions regarding all of their medications were answered. The patient was able to verbally demonstrate an understanding of their discharge medications. Medications at Discharge Home Medications allopurinol 300 mg tablet 300 mg PO DAILY 09/20/13 aspirin 81 mg chewable tablet 81 mg PO DAILY@0800 09/20/13 lorazepam 1 mg tablet 1 mg PO QHS 09/20/13 meloxicam 15 mg tablet 15 mg PO DAILY 09/20/13 multivitamin with folic acid 400 mcg tablet 1 tab PO DAILY 09/20/13 pyridoxine (vitamin B6) 100 mg tablet 100 mg PO DAILY 09/20/13 tramadol 50 mg tablet 50 mg PO Q4H PRN PRN Pain 09/20/13 famotidine 20 mg tablet (Acid [employer] (famotidine)) 20 mg PO DAILY 12/01/18 ibrutinib 420 mg tablet (Imbruvica) 420 mg PO DAILY 12/01/18 loratadine 10 mg capsule 10 mg PO DAILY 12/01/18 cholecalciferol (vitamin D3) 25 mcg (1,000 unit) tablet 25 mcg PO DAILY 12/30/20 metformin 500 mg tablet,extended release 24 hr 500 mg PO BID 12/30/20 gabapentin 600 mg tablet 600 mg PO TID 07/13/22 lisinopril 10 mg tablet 10 mg PO DAILY #90 tabs 11/03/23 metoprolol succinate 25 mg tablet,extended release 24 hr 25 mg PO DAILY #90 tabs 11/03/23 nitroglycerin 0.4 mg sublingual tablet 0.4 mg sublingual Q5M PRN chest pain #25 tabs 11/03/23 simvastatin 20 mg tablet 20 mg PO DAILY #90 tabs 11/03/23 tamsulosin 0.4 mg capsule (Flomax) 0.4 mg PO DAILY 01/11/24 amiodarone 200 mg tablet 200 mg PO DAILY 30 days #30 tabs 04/04/24 apixaban 5 mg tablet (Eliquis) 5 mg PO BID 30 days #60 tabs 04/04/24 cefdinir 300 mg capsule 300 mg PO BID 10 days #20 caps 04/04/24
--- NOTE | 2024-04-04 12:31 | PCM.DC.SUM ---
Providers Date of Admission: 03/30/24 Primary Care Physician: Dr. Matt Flores, Consultations 03/31/24 02:34 Consult: Cardiology Routine Consulting Provider: Jose Juan Farooq Reason for Consult: new onset afib w/ rvr EMERGENT Consult: No MD Notified: Yes Date Notified: 03/31/24 Time Notified: 02:34 Method of Notification: Text 04/02/24 15:43 Consult: Onc/Wound/registered nurse obstetrics Routine Comment: Reason for Consult:: wound to left medial heel Reason For Visit: UTI, NEW ONSET A-FIB WITH RVR Diagnosis Discharge Diagnosis (1) Sepsis: Status: Acute Code(s): A41.9 - Sepsis, unspecified organism (2) UTI (urinary tract infection): Status: Acute Code(s): N39.0 - Urinary tract infection, site not specified (3) New onset a-fib: Status: Acute Code(s): I48.91 - Unspecified atrial fibrillation (4) MARIA DOLORES (acute kidney injury): Status: Acute Code(s): N17.9 - Acute kidney failure, unspecified Medications at Discharge Home Medications allopurinol 300 mg tablet 300 mg PO DAILY 09/20/13 aspirin 81 mg chewable tablet 81 mg PO DAILY@0800 09/20/13 lorazepam 1 mg tablet 1 mg PO QHS 09/20/13 meloxicam 15 mg tablet 15 mg PO DAILY 09/20/13 multivitamin with folic acid 400 mcg tablet 1 tab PO DAILY 09/20/13 pyridoxine (vitamin B6) 100 mg tablet 100 mg PO DAILY 09/20/13 tramadol 50 mg tablet 50 mg PO Q4H PRN PRN Pain 09/20/13 famotidine 20 mg tablet (Acid Motion Picture Set Grip (famotidine)) 20 mg PO DAILY 12/01/18 ibrutinib 420 mg tablet (Imbruvica) 420 mg PO DAILY 12/01/18 loratadine 10 mg capsule 10 mg PO DAILY 12/01/18 cholecalciferol (vitamin D3) 25 mcg (1,000 unit) tablet 25 mcg PO DAILY 12/30/20 metformin 500 mg tablet,extended release 24 hr 500 mg PO BID 12/30/20 gabapentin 600 mg tablet 600 mg PO TID 07/13/22 lisinopril 10 mg tablet 10 mg PO DAILY #90 tabs 11/03/23 metoprolol succinate 25 mg tablet,extended release 24 hr 25 mg PO DAILY #90 tabs 11/03/23 nitroglycerin 0.4 mg sublingual tablet 0.4 mg sublingual Q5M PRN chest pain #25 tabs 11/03/23 simvastatin 20 mg tablet 20 mg PO DAILY #90 tabs 11/03/23 tamsulosin 0.4 mg capsule (Flomax) 0.4 mg PO DAILY 01/11/24 amiodarone 200 mg tablet 200 mg PO DAILY 30 days #30 tabs 04/04/24 apixaban 5 mg tablet (Eliquis) 5 mg PO BID 30 days #60 tabs 04/04/24 cefdinir 300 mg capsule 300 mg PO BID 10 days #20 caps 04/04/24 Hospital Course Operations None Procedures 2-D Echocardiogram and PICC line placement Summary of Care Provided Minutes Spent on Discharge: 38 Hospital Course: Per HPI: BARNDY LOMELI, is a 83 M who presented to [facility] on 03/30/2024 as a transfer from [facility] for new onset A-fib with RVR and UTI with concern for sepsis. Saw patient at bedside on the floor shortly after arrival, and son present. Patient was sitting up fairly comfortably in bed, conversing normally, in no acute distress. He was somewhat pale and fatigued appearing. Patient lives at home with his . He generally has a fairly poor functional status and has essentially not been able to walk for the past few years. He has a known sacral decubitus wound that is being followed by wound care. Patient and state that over the past few days he has been weaker than normal and then he developed fevers and chills this morning. He also was having more difficulty urinating than normal with some dysuria and had a small amount of blood in his urine. For these reasons they took him to the [facility] for further evaluation. Reviewed [facility] provider notes in [facility]. Was noted the patient appeared very dry on exam, so he was made a sepsis alert upon arrival. UA was consistent with a UTI and patient was started on ceftriaxone. He was reportedly given a 30 cc/kg fluid bolus and it was noted that he responded well and was not hypotensive. He was also noted to be in new onset A-fib with RVR. He was started on a Cardizem drip with improvement in his heart rate to the 90s to 100s. He was also started on heparin drip for anticoagulation. Labs there were notable for creatinine 1.85 (baseline appears to be less than 1), lactate 2.0, WBC count 9.6. On arrival here, patient was noted to be in A-fib with RVR with heart rates consistently in the 120s to 130s. He was still on the diltiazem drip at 10 mg/hr. His initial blood pressures were noted to be in the 80s over 40s. Given concern for possible septic shock in setting of known UTI with concern for bacteremia, patient was transferred up to the ICU for further management. He was given another 1 L LR bolus at that time. Diltiazem drip was continued at that rate. Heparin drip was discontinued and patient will be started on Eliquis for anticoagulation. Hospital Course: 1. Sepsis secondary to E. coli UTI and bacteremia/MARIA DOLORES?83-year-old male presented from outside hospital with sepsis. Blood cultures ultimately demonstrated a pansensitive E. coli which were cleared on the cultures that we obtained here at this hospital. Also both urine cultures demonstrated the same pansensitive E. coli and he was started on Rocephin with rapid improvement in his symptoms. He has endorsed the fact that he has had several UTIs over the last 18 to 24 months and so I did discuss with him the benefit of following up with urology to see if there is any interventions he can do as he does have BPH and takes Flomax. Will continue with p.o. cefdinir for 10 more days at 300 mg twice daily to complete a 14-day total course of antibiotics. I discussed with him the plan for discharge and he expressed understanding of the risk benefits of going home and will go home today. I do recommend that he follow-up with his PCP in 3 to 5 days. 2. New onset A-fib with RVR/CAD status post stent/essential HTN/HLD?during his hospitalization he developed A-fib with RVR which is likely related to his sepsis, his course was complicated by significant hypotension after the initiation of Cardizem and he did require pressor support for approximately 24 hours. This did resolve with fluid resuscitation, discontinuation of Cardizem and the initiation of amiodarone. Cardiology was consulted and recommended an echocardiogram which shows an EF of 60% with no diastolic dysfunction. Will continue with amiodarone at 200 mg p.o. twice daily for 5 more days and then transition to daily dosing as well as metoprolol for rate control. He will follow-up with cardiology as an outpatient as well. Given his age and the onset of A-fib with his [id number] score, he was also started on Eliquis. 3. Anemia with thrombocytopenia?the etiology of the anemia is unclear however it does appear to be resolving as his hemoglobin today was 10.7 up from 8.7. I do recommend continued monitoring of this as an outpatient. Also his thrombocytopenia is chronic but it was low here down to 50,000 which is slowly resolving is likely a consequence of his sepsis. This will should also be monitored as an outpatient. 4. Chronic debility with a history of spinal stenosis and impaired mobility, CLL, BPH, GERD, type 2 diabetes with neuropathy and chronic leg pain are all chronic medical conditions which complicate his care. His home medications were continued where appropriate Physical Exam Narrative General: Alert, Oriented x3, Cooperative, No apparent distress HEENT: Atraumatic, PERRLA, EOMI, Normocephalic Oral: Moist Mucosa Neck: Supple, No JVD Lungs: Diminished, Normal air movement, No rhonchi, No wheeze, No rales Cardiovascular: Regular rate and irregular rhythm, Normal S1, Normal S2, No murmurs Abdomen: Soft, Non Tender, Non-Distended, No Hepato-splenomegaly Extremities: No edema, Capillary Refill Less than 3 Seconds Skin: No rashes, No breakdown Musculoskeletal: No Tenderness to Palpation of Joints or Extremities Neurological: No focal neurological deficits, Motor Exam 5/5 strength throughout, Sensory exam intact to light touch and pain Psych/Mental Status: Normal affect Weight / BMI Weight Weight: 209 lb 14.081 oz Body Mass Index (BMI) 30.0 ABG / Lab / Microbiology Data 04/04/24 06:09 04/04/24 06:09 Laboratory: Laboratory Results - last 24 hr 04/02/24 05:35: Diff Path Review Reviewed 04/03/24 17:15: POC Glucose 112 H 04/03/24 21:43: POC Glucose 126 H 04/04/24 06:09: WBC 6.7, RBC 3.21 L, Hgb 10.7 L, Hct 33.3 L, MCV 103.7 H, MCH 33.3 H, MCHC 32.1, RDW Std Deviation 53.0 H, RDW Coeff of Jacinda 13.9, Plt Count 76 L, MPV 11.6, Immature Gran % (Auto) 1.800 H, Neut % (Auto) 74.1 H, Lymph % (Auto) 15.2 L, [place] % (Auto) 6.7, Eos % (Auto) 1.8, Baso % (Auto) 0.4, Absolute Neuts (auto) 5.0, Absolute Lymphs (auto) 1.02, Nucleated RBC % 0, Sodium 141, Potassium 4.2, Chloride 108 H, Carbon Dioxide 26.0, Anion Gap 7, BUN 20 H, Creatinine 0.87, Estim Creat Clear Calc 77.12, Est GFR (MDRD) Af Amer 108, Est GFR (MDRD) Non-Af 89, BUN/Creatinine Ratio 23.0 H, Glucose 127 H, Calcium 8.8 04/04/24 06:18: POC Glucose 118 H Microbiology: Microbiology 03/30/24 23:54 Urine, Clean Catch Urine Culture - Final Escherichia coli D/C Instructions Discharge Diet: Low fat / Low cholesterol and Carb Control Diet Call your doctor if you observe: Fever of 101 or Higher, Shortness of breath, Dizziness, Fainting spells, Swelling in the ankles, Chest pain and Increased palpitations (irregular heartbeat) Meaningful Use Info Meaningful Use Meaningful Use Diagnoses (Choose all that apply): None applicable Ischemic Stroke Statin Dosing Therapy Reference: STATIN DOSE THERAPY REFERENCE: * Patients > 75 years receive moderate or high dose statin therapy. * Patients 75 years or YOUNGER should receive HIGH intensity statin dose unless contraindicated. You will be required to document reason for non-treatment if statin daily dose does not meet guidelines. HIGH DOSE STATIN THERAPY DAILY Atorvastatin > than or = to 40 mg Rosuvastatin > than or = to 20 mg Amlodipine + Atorvastatin > than or = to 2.5/40 mg Ezetimibe + Simvastatin 10/80 mg Simvastatin 80mg Discharge Plan Admission Admit Date/Time: 03/30/24 21:04 Attending Provider: Abdias George Primary Care Provider: Matt Flores Consulting Providers: Pedro Landaverde; Jose Juan Farooq Instructions Additional Instructions / Restrictions: Please follow-up with your outside plant technician for your new onset A-fib as well as with your urologist for recurrent UTIs. Discharge Orders/Prescriptions Prescriptions: New amiodarone 200 mg Tablet 200 mg PO DAILY 30 Days Qty: 30 0RF Rx Instructions: Take 1 tablet twice daily for 5 more days then switch to 1 tablet daily Eliquis 5 mg Tablet 5 mg PO BID 30 Days Qty: 60 0RF cefdinir 300 mg capsule 300 mg PO BID 10 Days Qty: 20 0RF Continued Imbruvica 420 mg tablet 420 mg PO DAILY loratadine 10 mg capsule 10 mg PO DAILY famotidine [Acid Motion Picture Set Grip (famotidine)] 20 mg tablet 20 mg PO DAILY metformin 500 mg tablet extended release 24 hr 500 mg PO BID cholecalciferol (vitamin D3) 25 mcg (1,000 unit) tablet 25 mcg PO DAILY gabapentin 600 mg tablet 600 mg PO TID metoprolol succinate 25 mg tablet extended release 24 hr 25 mg PO DAILY Qty: 90 4RF simvastatin 20 mg tablet 20 mg PO DAILY Qty: 90 4RF lisinopril 10 mg tablet 10 mg PO DAILY Qty: 90 4RF nitroglycerin 0.4 mg tablet, sublingual 0.4 mg SUBLINGUAL Q5M PRN (Reason: chest pain) Qty: 25 3RF meloxicam 15 MG tablet 15 mg PO DAILY Patient Comments: ANTI-INFLAMMATORY tramadol 50 MG tablet 50 mg PO Q4H PRN PRN (Reason: Pain) Patient Comments: PAIN aspirin 81 MG tablet,chewable 81 mg PO DAILY@0800 Patient Comments: HE[facility] allopurinol 300 MG tablet 300 mg PO DAILY Patient Comments: GOUT pyridoxine (vitamin B6) 100 MG tablet 100 mg PO DAILY Patient Comments: SUPPLEMENT lorazepam 1 MG tablet 1 mg PO QHS Patient Comments: ANXIETY multivitamin with folic acid 1 TABLET tablet 1 tab PO DAILY Patient Comments: SUPPLEMENT tamsulosin [Flomax] 0.4 mg capsule 0.4 mg PO DAILY Referrals / Follow Up: Matt Flores DO [Primary Care Provider] - Within 1 Week Jose Juan Farooq MD [Med Staff - Active Staff] - Within 1 Month Jerrod Moss MD [Med Staff - Active Staff] - Within 3 Months Disposition Disposition (needs filled in before D/C Order can be placed): Home, Self Care Charges/Coding Visit Charges Inpatient E&M: 60817 Disch Hosp >30min
== END 2024-04-04 11:15 | disposition home or self-care (01) | DRG 872 ==
LOC: PCU 21:05 → ICU 03-31 06:52 → PCU 04-02 17:23
PROVIDERS: Hospitalist; Admitting Provider Internal Medicine; PCP Family Medicine; Visit Provider Family Medicine
DX: A41.51 Sepsis due to Escherichia coli [E. coli] (principal); N17.9 Acute kidney failure, unspecified; N13.8 Other obstructive and reflux uropathy; C91.10 Chronic lymphocytic leukemia of B-cell type not having achieved remission; N39.0 Urinary tract infection, site not specified; D64.9 Anemia, unspecified; K21.9 Gastro-esophageal reflux disease without esophagitis; E11.40 Type 2 diabetes mellitus with diabetic neuropathy, unspecified; I48.91 Unspecified atrial fibrillation; I10 Essential (primary) hypertension; E78.5 Hyperlipidemia, unspecified; I25.10 Atherosclerotic heart disease of native coronary artery without angina pectoris; I25.2 Old myocardial infarction; N40.1 Benign prostatic hyperplasia with lower urinary tract symptoms; R33.8 Other retention of urine; G47.00 Insomnia, unspecified; R53.81 Other malaise; Z79.84 Long term (current) use of oral hypoglycemic drugs; Z79.82 Long term (current) use of aspirin; Z95.5 Presence of coronary angioplasty implant and graft
CPT/HCPCS: 11042; 36415; 36569; 71045; 80048; 81001; 82962; 85025; 85027; 87040; 87077; 87086; 87088; 87186; 93005; 93306; 97110; 97162; 97166; 97530; 97535; 97802; J7030; J7040; J7050; J7120; Q9957; A4216; J0696

== ENCOUNTER 2024-04-11 08:30 | Outpatient (RCR) | payer MEDICARE, SELFPAY ==
[2024-03-17 01:58] VITALS: BP 121/74; PULSE 69; RESP 18; TEMP 35.8; BMI 31.6
[2024-03-28 08:12] VITALS: BP 87/55; PULSE 70; RESP 16; TEMP 36.4; BMI 31.6
--- NOTE | 2024-03-28 09:13 | PCM.WC.PN ---
History of Present Illness Date of Service: 03/28/24 Chief Complaint: Follow-up on buttocks right and left wounds that have been going on for months. 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 He lays on his chair most of the day. And has developed 2 areas on his buttocks sores that have gotten bigger and they have been trying to close for months. Currently there is been using antibiotic ointment. Also has tried Silvadene creams and other things through his doctor Now he has been referred here to the wound center Progress of Wound: Buttocks wound is healed left buttocks is getting there still open no sign of infection healing is slow because the areas near the anus. Will have him follow-up in 2 weeks Subjective Subjective and are agreeable to plan Objective Data Objective Data As said above no sign of infection healing is slow but is much smaller than it was last week follow-up 2 weeks Vital Signs: Vital Signs Temp Pulse Resp BP O2 Del Method 97.6 F L 70 16 87/55 L Room Air 03/28/24 08:12 03/28/24 08:12 03/28/24 08:12 03/28/24 08:12 03/28/24 08:12 Oxygen Delivery Method Room Air Weight: 220 lb 0.271 oz Body Mass Index (BMI) 31.6 Lab / Micro Data Attestation: I reviewed the patient's lab results. Physical Exam Const oriented x3 General Appearance: cooperative Exam Limitations: no limitations HEENT normocephalic Eyes General Eye: normal appearance of both eyes Resp normal respiratory effort Effort and Inspection: able to speak in complete sentences Auscultation: clear to auscultation bilaterally Cardio regular rate and regular rhythm Palpation: normal PMI Rate: regular rate Rhythm: regular rhythm Back/Spine Cervical Spine: cervical ROM normal Thoracic Spine / Upper Back: normal to inspection Lumbar Spine / Lower Back: normal to inspection Pelvis: buttocks abnormal and other soft tissue findings Open wounds bilateral buttocks Extremity normal to inspection General Extremity: normal exam except as noted Skin Skin Narrative: Open wounds on buttocks clean well marcated Wound Narrative: Stage II Neuro oriented x3 Debridement Note Debridement Note Wound debrided: buttocks sacral stage II wounds Laterality: Left Wound Grade/Stage: Stage II Type of Debridement: Excisional debridement Anesthesia Used: 5% Lidocaine Gel Depth: in the subcutaneous layer Percentage of wound debrided: 100 Instrument Used: 3mm curette Tissue Removed: Fibrin Severity: Limited To Skin Breakdown Amount of bleeding with debridement: Mild Bleeding Controlled with: Compression and gauze Patient tolerated procedure: Patient tolerated procedure well Post-Debridement Measurements and Additional Note: Post-Debridement Measurements/Treatment SHAYLA - Nurse 1 - General Ulcer Assessment Start: 03/28/24 08:10 Freq: Status: Active Protocol: CHEL Activity Type Activity Date Activity User E-sign Co-sign Detail Recorded Client Recorded Date Recorded By Document 03/28/24 08:12 [facility] wound center 03/28/24 08:19 03/28/24 08:12 WC - Today's Visit Information Type of service Follow-up Visit (Physician/RAIL SPECIALIST ) Arrival Mode Other Arrival Mode (Other) power chair Patient Identification Verified (Name & Yes ) Height and Weight Body Mass Index (BMI) 31.6 BMI Classification Obese Vital Signs Temperature (97.8 F-99.1 F) 97.6 F L Temperature Source Temporal Pulse Rate (60-100) 70 Pulse Location Monitor Respiratory Rate (12-18) 16 Respiratory rate source Observation Oxygen Delivery Method Room Air Blood Pressure (90/60-120/80) 87/55 L Blood Pressure Mean (mm Hg) 65 Source Monitor Position Sitting Blood Pressure Location Left Arm History Since Last Visit- (Skip if this is Patient's initial visit) Have you changed medications since your No last visit? Any new allergies or adverse reactions No Had a fall/change in ADL's that may No increase risk of falls Signs or symptoms of abuse and/or No neglect since last visit Have you been in the hospital since your No last visit? Has dressing in place as prescribed Yes Has compression in place as prescribed N/A Has offloadiing in place as prescribed N/A Experienced any changes in pain level or No management Left Footwear Regular Shoe Right Footwear Regular Shoe Pain Scale: 0-10 Numeric Is Patient Pain Free? Yes - Nurse 1 - General Ulcer Measurement Start: 03/28/24 08:10 Freq: Status: Active Protocol: Activity Type Activity Date Activity User E-sign Co-sign Detail Recorded Client Recorded Date Recorded By Document 03/28/24 08:12 K[facility] wound center 03/28/24 08:19 KW 03/28/24 08:12 Wound Center Nurse 1 #1 Sacral Cluster -Current Size (cm) - Length 0.9 -Current Size (cm) - Width 0.4 -Current Size (cm) - Depth 0.1 -Total Square Cm 0.36 -Date of Last Picture (Recall this 03/28/24 field) -Exudate Amt Small -Exudate Type Serosanguineous -Wound Margin Distinct, Outline Attached -Granulation Amt Large (67-100%) -Granulation Quality [place],Red -Texture (Andreea-wound Skin Appearance) Assessed -Moisture (Andreea-wound Skin Appearance) Assessed, Maceration -Color (Andreea-wound Skin Appearance) Assessed, Erythema -Temperature (Andreea-wound Skin No Abnormality Appearance) (Pt Warm) -Tenderness on Palpation (Andreea-wound No Skin Appearance) -Ulcer Cleansing Rinsed/ Irrigated with Saline -Foul Odor after Cleansing No -Anesthetic Used 5% Lidocaine Gel SHAYLA - Nurse 2 - General Ulcer CM Notes Start: 03/28/24 08:10 Freq: Status: Active Protocol: Activity Type Activity Date Activity User E-sign Co-sign Detail Recorded Client Recorded Date Recorded By Document 03/28/24 08:35 [facility] [id number] 03/28/24 08:38 [facility] 03/28/24 08:35 Wound Center Nurse 2 -Time 08:35 -Correct Patient Yes -Correct Side, Site, Position Yes -Correct Procedure Yes -Procedure Performed Yes -Type of Procedure Debridement -Clinical Debridement Subcutaneous -Tissue Removed Subcutaneous -Post Debridement (cm) - Length 0.9 -Post Debridement (cm) - Width 0.7 -Post Debridement (cm) - Depth 0.1 -Total Square (Post) (cm) 0.63 -Area of Debridement (cm) - Length 0.9 -Area of Debridement (cm) - Width 0.7 -Total Square (Area) (cm) 0.63 -Tunneling No -Undermining/Tunneling No -Circular Undermining No -Wound/Ulcer Outcome Not Healed -Ulcer Cleansing Rinsed/ Irrigated with Saline -Foul Odor after Cleansing No -Bioengineered Tissue No -Bleeding Controlled with Pressure -Treatment Response Procedure Tolerated Well -Debridement - Subq, 1st 20sq cm Yes Pain Scale: 0-10 Numeric Is Patient Pain Free? Yes SHAYLA - Nurse 3 - General Ulcer D/C NN Start: 03/28/24 08:10 Freq: Status: Active Protocol: Activity Type Activity Date Activity User E-sign Co-sign Detail Recorded Client Recorded Date Recorded By Document 03/28/24 08:40 KW wound center 03/28/24 08:40 03/28/24 08:40 Wound Care Center Nurse 3 #1 Sacral Cluster -Ulcer Cleansing Rinsed/ Irrigated with Saline -Primary Dressing Applied Fibracol Plus 4x4,Mepilex Border -Fibracol Plus 4x4 1 -Mepilex Border 1 Pain Scale: 0-10 Numeric Is Patient Pain Free? Yes WC - Visit Discharge Discharge Condition Stable Transportation Private Auto Accompanied by Medication Reconcilliation completed & No provided to patient/care provider Clinical Summary of Care Provided Yes Assessment/Plan Assessment/Plan (1) Mobility impaired: CODE(S): Z74.09 - Other reduced mobility (2) Decubitus ulcer of buttock, stage 2: CODE(S): L89.302 - Pressure ulcer of unspecified buttock, stage 2 QUALIFIERS: Laterality: unspecified laterality Qualified Code(s): L89.302 - Pressure ulcer of unspecified buttock, stage 2 PLAN: Wash buttocks with antibacterial soap. 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
--- NOTE | 2024-03-30 17:37 | HP.PCM.HOS_ITS ---
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 [facility] Medical History (Reviewed 01/18/24 @ 10:29 by Julianne Lawton DOWNSTREAM BIOMANUFACTURING TECHNICIAN, DOWNSTREAM BIOMANUFACTURING TECHNICIAN-C) Atherosclerotic heart disease of [place] coronary artery without angina pectoris Essential (primary) hypertension Gout HLD (hyperlipidemia) Hyperlipidemia Left ventricular hypertrophy Lymphoid leukemia Obesity Old inferior wall myocardial infarction (2000) Osteoarthritis Thrombocytopenic disorder Type 2 diabetes mellitus Home Medications ?Medication ?Instructions ?Recorded ?Last Taken ?Type allopurinol 300 mg tablet 300 mg PO DAILY 09/20/13 Unknown History aspirin 81 mg chewable tablet 81 mg PO DAILY@0800 09/20/13 Unknown History lorazepam 1 mg tablet 1 mg PO QHS 09/20/13 Unknown History meloxicam 15 mg tablet 15 mg PO DAILY 09/20/13 Unknown History multivitamin with folic acid 400 1 tab PO DAILY 09/20/13 Unknown History mcg tablet pyridoxine (vitamin B6) 100 mg 100 mg PO DAILY 09/20/13 Unknown History tablet tramadol 50 mg tablet 50 mg PO Q4H PRN PRN Pain 09/20/13 Unknown History famotidine 20 mg tablet (Acid 20 mg PO DAILY 12/01/18 Unknown History Service Delivery Manager (famotidine)) ibrutinib 420 mg tablet (Imbruvica) 420 mg PO DAILY 12/01/18 Unknown History loratadine 10 mg capsule 10 mg PO DAILY 12/01/18 Unknown History cholecalciferol (vitamin D3) 25 25 mcg PO DAILY 12/30/20 Unknown History mcg (1,000 unit) tablet metformin 500 mg tablet,extended 500 mg PO BID 12/30/20 Unknown History release 24 hr gabapentin 600 mg tablet 600 mg PO TID 07/13/22 Unknown History lisinopril 10 mg tablet 10 mg PO DAILY #90 tabs 11/03/23 Unknown Rx metoprolol succinate 25 mg 25 mg PO DAILY #90 tabs 11/03/23 Unknown Rx tablet,extended release 24 hr nitroglycerin 0.4 mg sublingual 0.4 mg sublingual Q5M PRN chest 11/03/23 Unknown Rx tablet pain #25 tabs simvastatin 20 mg tablet 20 mg PO DAILY #90 tabs 11/03/23 Unknown Rx tamsulosin 0.4 mg capsule (Flomax) 0.4 mg PO DAILY 01/11/24 Unknown History Allergy/AdvReac Type Severity Reaction Status Date / Time niacin (From Niaspan Allergy Unknown Verified 11/03/23 09:58 Extended-Release) Sulfa (Sulfonamide AdvReac Swelling Verified 11/03/23 09:58 Antibiotics) Family History Father Cancer lymphoma Myocardial infarction CAD (coronary artery disease) Mother CVA (cerebral vascular accident) Cancer HLD (hyperlipidemia) Hypertension Brother Myocardial infarction CAD (coronary artery disease) Sister Breast cancer Surgical History H/O arthroscopic knee surgery History of coronary artery stent placement (05/13/10) History of lithotripsy History of repair of rotator cuff Social History Smoking Status: Never smoker alcohol intake: former substance use type: does not use caffeine: No what type of physical activity do you participate in: none seatbelt use: always do you feel safe at home: Yes Vital Signs Vital Signs Vital Signs: Weight Weight: 220 lb 0.271 oz Body Mass Index (BMI) 31.6
--- NOTE | 2024-03-30 20:42 | PCM.HP.STD ---
HPI - General HPI Narrative BRANDY LOMELI, is a 83 M who presents [facility] Medical History (Reviewed 01/18/24 @ 10:29 by Julianne Lawton COUNTY AGRICULTURAL AGENT, COUNTY AGRICULTURAL AGENT-C) Atherosclerotic heart disease of [place] coronary artery without angina pectoris Essential (primary) hypertension Gout HLD (hyperlipidemia) Hyperlipidemia Left ventricular hypertrophy Lymphoid leukemia Obesity Old inferior wall myocardial infarction (2000) Osteoarthritis Thrombocytopenic disorder Type 2 diabetes mellitus Home Medications ?Medication ?Instructions ?Recorded ?Last Taken ?Type allopurinol 300 mg tablet 300 mg PO DAILY 09/20/13 Unknown History aspirin 81 mg chewable tablet 81 mg PO DAILY@0800 09/20/13 Unknown History lorazepam 1 mg tablet 1 mg PO QHS 09/20/13 Unknown History meloxicam 15 mg tablet 15 mg PO DAILY 09/20/13 Unknown History multivitamin with folic acid 400 1 tab PO DAILY 09/20/13 Unknown History mcg tablet pyridoxine (vitamin B6) 100 mg 100 mg PO DAILY 09/20/13 Unknown History tablet tramadol 50 mg tablet 50 mg PO Q4H PRN PRN Pain 09/20/13 Unknown History famotidine 20 mg tablet (Acid 20 mg PO DAILY 12/01/18 Unknown History Metal Extrusion Supervisor (famotidine)) ibrutinib 420 mg tablet (Imbruvica) 420 mg PO DAILY 12/01/18 Unknown History loratadine 10 mg capsule 10 mg PO DAILY 12/01/18 Unknown History cholecalciferol (vitamin D3) 25 25 mcg PO DAILY 12/30/20 Unknown History mcg (1,000 unit) tablet metformin 500 mg tablet,extended 500 mg PO BID 12/30/20 Unknown History release 24 hr gabapentin 600 mg tablet 600 mg PO TID 07/13/22 Unknown History lisinopril 10 mg tablet 10 mg PO DAILY #90 tabs 11/03/23 Unknown Rx metoprolol succinate 25 mg 25 mg PO DAILY #90 tabs 11/03/23 Unknown Rx tablet,extended release 24 hr nitroglycerin 0.4 mg sublingual 0.4 mg sublingual Q5M PRN chest 11/03/23 Unknown Rx tablet pain #25 tabs simvastatin 20 mg tablet 20 mg PO DAILY #90 tabs 11/03/23 Unknown Rx tamsulosin 0.4 mg capsule (Flomax) 0.4 mg PO DAILY 01/11/24 Unknown History Allergy/AdvReac Type Severity Reaction Status Date / Time niacin (From Niaspan Allergy Unknown Verified 11/03/23 09:58 Extended-Release) Sulfa (Sulfonamide AdvReac Swelling Verified 11/03/23 09:58 Antibiotics) Family History Father Cancer lymphoma Myocardial infarction CAD (coronary artery disease) Mother CVA (cerebral vascular accident) Cancer HLD (hyperlipidemia) Hypertension Brother Myocardial infarction CAD (coronary artery disease) Sister Breast cancer Surgical History H/O arthroscopic knee surgery History of coronary artery stent placement (05/13/10) History of lithotripsy History of repair of rotator cuff Social History Smoking Status: Never smoker alcohol intake: former substance use type: does not use caffeine: No what type of physical activity do you participate in: none seatbelt use: always do you feel safe at home: Yes Vital Signs Vital Signs Vital Signs: Weight Weight: 99.798 kg Body Mass Index (BMI) 31.6
[2024-04-11 08:35] VITALS: BP 112/54; PULSE 62; RESP 18; TEMP 36; BMI 31.6
--- NOTE | 2024-04-11 10:28 | PCM.WC.PN ---
History of Present Illness Date of Service: 04/11/24 Chief Complaint: Follow-up on buttocks right and left wounds that have been going on for months. 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 He lays on his chair most of the day. And has developed 2 areas on his buttocks sores that have gotten bigger and they have been trying to close for months. Currently there is been using antibiotic ointment. Also has tried Silvadene creams and other things through his doctor Now he has been referred here to the wound center Progress of Wound: Patient became septic from a urinary tract infection and up for 5 days and the hospital in TCU unit. Now his sacral wound is much bigger still stage II but open looks like it had a blister. He also has a left heel wound from taking into the mattress turning. Patient is on Saul at this point and taking it well. We will order through his home health care and overlay for his bed and will put a postop shoe on his foot so he does not have to wear shoe he can still get up and walk. Subjective Subjective and patient are okay with our plan of care. Realize he is taken back a few steps here with the bed sacral area gotten bigger and we almost had it healed. Objective Data Objective Data So increased size of the sacral wound from being hospitalized and developed a new wound on his left heel still closed does not appear open we will keep it covered and pad and protect and try to get him to stay off of it. Vital Signs: Vital Signs Temp Pulse Resp BP O2 Del Method 96.8 F L 62 18 112/54 L Room Air 04/11/24 08:35 04/11/24 08:35 04/11/24 08:35 04/11/24 08:35 03/28/24 08:12 Oxygen Delivery Method Room Air Weight: 220 lb 0.271 oz Body Mass Index (BMI) 31.6 Lab / Micro Data Attestation: I reviewed the patient's lab results. Physical Exam Const oriented x3 General Appearance: cooperative Exam Limitations: no limitations HEENT normocephalic Eyes General Eye: normal appearance of both eyes Resp normal respiratory effort Effort and Inspection: able to speak in complete sentences Auscultation: clear to auscultation bilaterally Cardio regular rate and regular rhythm Palpation: normal PMI Rate: regular rate Rhythm: regular rhythm Back/Spine Cervical Spine: cervical ROM normal Thoracic Spine / Upper Back: normal to inspection Lumbar Spine / Lower Back: normal to inspection Pelvis: buttocks abnormal and other soft tissue findings Open wounds bilateral buttocks Extremity normal to inspection General Extremity: normal exam except as noted Skin Skin Narrative: Open wounds on buttocks clean well marcated Wound Narrative: Stage II Neuro oriented x3 Debridement Note Debridement Note Wound debrided: buttocks sacral stage II wounds Laterality: Left Wound Grade/Stage: Stage II Type of Debridement: Excisional debridement Anesthesia Used: 5% Lidocaine Gel Depth: in the subcutaneous layer Percentage of wound debrided: 100 Instrument Used: 3mm curette Tissue Removed: Fibrin Severity: Limited To Skin Breakdown Amount of bleeding with debridement: Mild Bleeding Controlled with: Compression and gauze Patient tolerated procedure: Patient tolerated procedure well Post-Debridement Measurements and Additional Note: Post-Debridement Measurements/Treatment - Nurse 1 - General Ulcer Assessment Start: 03/28/24 08:10 Freq: Status: Active Protocol: CHEL Activity Type Activity Date Activity User E-sign Co-sign Detail Recorded Client Recorded Date Recorded By Document 03/28/24 08:12 KW wound center 03/28/24 08:19 KW Document 04/11/24 08:35 DL [email or web address] 04/11/24 08:46 DL 03/28/24 04/11/24 08:12 08:35 - Today's Visit Information Type of service Follow-up Visit Follow-up Visit (Physician/MEDICAL LAB TECH INSTRUCTOR (Physician/MEDICAL LAB TECH INSTRUCTOR ) ) Arrival Mode Other Ambulatory Arrival Mode (Other) power chair Transfer Assistance None Patient Identification Verified (Name & Yes Yes ) Patient Requires Transmission-Based No Precautions Finger Stick Blood Sugar(mg/dl) (if 95 indicated): Blood Sugar Stated by Patient Height and Weight Body Mass Index (BMI) 31.6 31.6 BMI Classification Obese Obese Vital Signs Temperature (97.8 F-99.1 F) 97.6 F L 96.8 F L Temperature Source Temporal Temporal Pulse Rate (60-100) 70 62 Pulse Location Monitor Monitor Respiratory Rate (12-18) 16 18 Respiratory rate source Observation Observation Oxygen Delivery Method Room Air Blood Pressure (90/60-120/80) 87/55 L 112/54 L Blood Pressure Mean (mm Hg) 65 73 Source Monitor Monitor Position Sitting Blood Pressure Location Left Arm History Since Last Visit- (Skip if this is Patient's initial visit) Have you changed medications since your No Yes last visit? Any new allergies or adverse reactions No No Had a fall/change in ADL's that may No No increase risk of falls Signs or symptoms of abuse and/or No No neglect since last visit Have you been in the hospital since your No Yes last visit? Has dressing in place as prescribed Yes Yes Has compression in place as prescribed N/A N/A Has offloadiing in place as prescribed N/A Yes Experienced any changes in pain level or No No management Left Footwear Regular Shoe Right Footwear Regular Shoe Pain Scale: 0-10 Numeric Is Patient Pain Free? Yes Yes WC - Nurse 1 - General Ulcer Measurement Start: 03/28/24 08:10 Freq: Status: Active Protocol: Activity Type Activity Date Activity User E-sign Co-sign Detail Recorded Client Recorded Date Recorded By Document 03/28/24 08:12 KW wound center 03/28/24 08:19 KW Document 04/11/24 08:35 DL [email or web address] 04/11/24 08:46 DL 03/28/24 04/11/24 08:12 08:35 Wound Center Nurse 1 #2 L Heel -Current Size (cm) - Length 1.7 -Current Size (cm) - Width 1.4 -Current Size (cm) - Depth 0.1 -Total Square Cm 2.38 -Photo Taken Yes -Exudate Amt Small -Exudate Type Serosanguineous -Wound Margin Distinct, Outline Attached -Granulation Amt None Present (0 %) -Necrosis Amt Large (67-100%) -Necrotic Tissue Type Adherent Slough -Structure Exposed N/A -Texture (Andreea-wound Skin Appearance) Scarring -Moisture (Andreea-wound Skin Appearance) No Abnormality -Color (Andreea-wound Skin Appearance) No Abnormality -Temperature (Andreea-wound Skin No Abnormality Appearance) (Pt Warm) -Tenderness on Palpation (Andreea-wound No Skin Appearance) -Ulcer Cleansing Rinsed/ Irrigated with Saline -Foul Odor after Cleansing No -Anesthetic Used 5% Lidocaine Gel #1 Sacral Cluster -Current Size (cm) - Length 0.9 7.5 -Current Size (cm) - Width 0.4 2 -Current Size (cm) - Depth 0.1 0.1 -Total Square Cm 0.36 15.0 -Date of Last Picture (Recall this 03/28/24 field) -Photo Taken Yes -Exudate Amt Small Medium -Exudate Type Serosanguineous Serosanguineous -Wound Margin Distinct, Distinct, Outline Outline Attached Attached -Granulation Amt Large (67-100%) Medium (34-66%) -Granulation Quality [place],Red Red -Necrosis Amt Medium (34-66%) -Necrotic Tissue Type Adherent Slough -Structure Exposed N/A -Texture (Andreea-wound Skin Appearance) Assessed Scarring -Moisture (Andreea-wound Skin Appearance) Assessed, No Abnormality Maceration -Color (Andreea-wound Skin Appearance) Assessed, Erythema Erythema -Temperature (Andreea-wound Skin No Abnormality No Abnormality Appearance) (Pt Warm) (Pt Warm) -Tenderness on Palpation (Andreea-wound No No Skin Appearance) -Ulcer Cleansing Rinsed/ Soap and Water Irrigated with Saline -Foul Odor after Cleansing No No -Anesthetic Used 5% Lidocaine 5% Lidocaine Gel Gel WC - Nurse 2 - General Ulcer CM Notes Start: 03/28/24 08:10 Freq: Status: Active Protocol: Activity Type Activity Date Activity User E-sign Co-sign Detail Recorded Client Recorded Date Recorded By Document 03/28/24 08:35 [facility] [id number] 03/28/24 08:38 [facility] Document 04/11/24 08:52 [facility] [email or web address] 04/11/24 09:02 [facility] 03/28/24 04/11/24 08:35 08:52 Wound Center Nurse 2 #2 L Heel -Time 08:56 -Correct Patient Yes -Correct Side, Site, Position Yes -Correct Procedure Yes -Procedure Performed Yes -Type of Procedure Debridement -Clinical Debridement Subcutaneous -Tissue Removed Subcutaneous -Post Debridement (cm) - Length 1.4 -Post Debridement (cm) - Width 1 -Post Debridement (cm) - Depth 0.1 -Total Square (Post) (cm) 1.4 -Area of Debridement (cm) - Length 1.4 -Area of Debridement (cm) - Width 1 -Total Square (Area) (cm) 1.4 -Tunneling No -Undermining/Tunneling No -Circular Undermining No -Wound/Ulcer Outcome Not Healed -Ulcer Cleansing Rinsed/ Irrigated with Saline -Foul Odor after Cleansing No -Bioengineered Tissue No -Bleeding Controlled with Pressure -Treatment Response Procedure Tolerated Well -Debridement - Subq, 1st 20sq cm Yes -Debridement, SubQ, ea addt'l 20sq cm 1 or part thereof #1 Sacral Cluster -Time 08:35 08:55 -Correct Patient Yes Yes -Correct Side, Site, Position Yes Yes -Correct Procedure Yes Yes -Procedure Performed Yes Yes -Type of Procedure Debridement Debridement -Clinical Debridement Subcutaneous Subcutaneous -Tissue Removed Subcutaneous Subcutaneous -Post Debridement (cm) - Length 0.9 7.8 -Post Debridement (cm) - Width 0.7 3.5 -Post Debridement (cm) - Depth 0.1 0.1 -Total Square (Post) (cm) 0.63 27.30 -Area of Debridement (cm) - Length 0.9 7.8 -Area of Debridement (cm) - Width 0.7 3.5 -Total Square (Area) (cm) 0.63 27.30 -Tunneling No No -Undermining/Tunneling No No -Circular Undermining No No -Wound/Ulcer Outcome Not Healed Not Healed -Ulcer Cleansing Rinsed/ Rinsed/ Irrigated with Irrigated with Saline Saline -Foul Odor after Cleansing No No -Bioengineered Tissue No No -Bleeding Controlled with Pressure Pressure -Treatment Response Procedure Procedure Tolerated Well Tolerated Well -Offloading Yes -Type of Offloading Other -Other Type of Offloading reposition; cushion -Debridement - Subq, 1st 20sq cm Yes No Pain Scale: 0-10 Numeric Is Patient Pain Free? Yes Yes WC - Nurse 3 - General Ulcer D/C NN Start: 03/28/24 08:10 Freq: Status: Active Protocol: Activity Type Activity Date Activity User E-sign Co-sign Detail Recorded Client Recorded Date Recorded By Document 03/28/24 08:40 KW wound center 03/28/24 08:40 KW Document 04/11/24 09:31 DL [email or web address] 04/11/24 09:36 DL 03/28/24 04/11/24 08:40 09:31 Wound Care Center Nurse 3 #2 L Heel -Ulcer Cleansing Rinsed/ Irrigated with Saline -Foul Odor after Cleansing No -Primary Dressing Applied Fibracol Plus 4x4,Mepilex Border -Fibracol Plus 4x4 1 -Mepilex Border 1 -Wound Comment(s) surgical shoe given to pt #1 Sacral Cluster -Ulcer Cleansing Rinsed/ Soap and Water Irrigated with Saline -Foul Odor after Cleansing No -Primary Dressing Applied Fibracol Plus Mepilex Border 4x4,Mepilex Border -Other Dressing fibracol -Fibracol Plus 4x4 1 -Mepilex Border 1 1 Treatment Response Procedure Tolerated Well Pain Scale: 0-10 Numeric Is Patient Pain Free? Yes Yes WC - Visit Discharge Discharge Condition Stable Stable Ambulatory Status Wheelchair Transportation Private Auto Private Auto Accompanied by Medication Reconcilliation completed & No provided to patient/care provider Clinical Summary of Care Provided Yes Facility Type Home Health Orders Sent Yes Additional Wound Wound debrided: Left heel pressure ulcer Laterality: Left Wound Grade/Stage: Stage II Type of Debridement: Excisional debridement Anesthesia Used: 5% Lidocaine Gel Depth: in the subcutaneous layer Percentage of wound debrided: 100 Instrument Used: 3mm curette Severity: Limited To Skin Breakdown Bleeding Controlled with: Compression and gauze Additional Wound Percentage of wound debrided: 100 Patient tolerated procedure: Patient tolerated procedure well Assessment/Plan Assessment/Plan (1) Mobility impaired: CODE(S): Z74.09 - Other reduced mobility (2) Decubitus ulcer of buttock, stage 2: CODE(S): L89.302 - Pressure ulcer of unspecified buttock, stage 2 QUALIFIERS: Laterality: unspecified laterality Qualified Code(s): L89.302 - Pressure ulcer of unspecified buttock, stage 2 PLAN: Wash buttocks with antibacterial soap. 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 Every day elevate to not touching mattress
--- NOTE | 2024-04-18 09:58 | WC ---
PHOTO SACRAL 04/11/2024
== END 2024-04-15 23:59 | disposition home or self-care (01) ==
LOC: WC 08:30
PROVIDERS: PCP Family Medicine; Referring Provider Family Medicine; Visit Provider Nurse Practitioner
DX: E11.622 Type 2 diabetes mellitus with other skin ulcer (principal); L89.152 Pressure ulcer of sacral region, stage 2; L89.322 Pressure ulcer of left buttock, stage 2; L89.312 Pressure ulcer of right buttock, stage 2; L89.622 Pressure ulcer of left heel, stage 2; C91.90 Lymphoid leukemia, unspecified not having achieved remission; I48.91 Unspecified atrial fibrillation; E11.59 Type 2 diabetes mellitus with other circulatory complications; Z74.09 Other reduced mobility; Z79.899 Other long term (current) drug therapy; Z79.84 Long term (current) use of oral hypoglycemic drugs
CPT/HCPCS: 11042; 11045

== ENCOUNTER → 2024-04-16 | Outpatient (CLI) | payer MEDICARE, SELFPAY | END | disposition home or self-care (01) | LOC: LABSPEC 15:47 | PROVIDERS: PCP Family Medicine; Referring Provider Urology; Visit Provider Urology | DX: R31.9 Hematuria, unspecified (principal) | CPT/HCPCS: 87077; 87086; 87088; 87186 ==

== ENCOUNTER 2024-05-16 08:45 | Outpatient (RCR) | payer MEDICARE, SELFPAY ==
[2024-04-16 00:22] VITALS: BP 121/74; PULSE 69; RESP 18; TEMP 35.8; BMI 31.6
[2024-04-18 08:55] VITALS: BP 111/57; PULSE 62; RESP 20; TEMP 36.3; BMI 31.6
--- NOTE | 2024-04-18 09:23 | PCM.WC.PN ---
History of Present Illness Date of Service: 04/18/24 Chief Complaint: Follow-up on buttocks right and left wounds that have been going on for months. 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 He lays on his chair most of the day. And has developed 2 areas on his buttocks sores that have gotten bigger and they have been trying to close for months. Currently there is been using antibiotic ointment. Also has tried Silvadene creams and other things through his doctor Now he has been referred here to the wound center Progress of Wound: After the last hospitalization in the coccyx wounds worsened and it is larger that were clustering and then he developed a left medial heel wound also from pressure. Overlay for mattress was just arrived yesterday they have not put it on the bed yet. They are floating the left heel and wearing a heel pad at home. The coccyx superior and is deeper and more yellow and more painful for him. The inferior and is pink and near the anus are healing getting smaller. Subjective Subjective Nervous about using the overlay that he feels he might slight out of bed but it to put it underneath the fitted sheet. states that he very rarely lays on his back which is good. Objective Data Objective Data Again the coccyx area is bigger and will be changing the treatment to silver cell to keep infection down I did cultures also will call them in a couple of days patient is back on Cipro for his urinary tract infection for the reason he was in the hospital. Left heel very erythematous around the wound but the wound itself is about the same or smaller flat no real depth just 0.1. Vital Signs: Vital Signs Temp Pulse Resp BP 97.4 F L 62 20 H 111/57 L 04/18/24 08:55 04/18/24 08:55 04/18/24 08:55 04/18/24 08:55 Weight: 220 lb 0.271 oz Body Mass Index (BMI) 31.6 Physical Exam Const oriented x3 General Appearance: cooperative Exam Limitations: no limitations HEENT normocephalic Eyes General Eye: normal appearance of both eyes Resp normal respiratory effort Effort and Inspection: able to speak in complete sentences Auscultation: clear to auscultation bilaterally Cardio regular rate and regular rhythm Palpation: normal PMI Rate: regular rate Rhythm: regular rhythm Back/Spine Cervical Spine: cervical ROM normal Thoracic Spine / Upper Back: normal to inspection Lumbar Spine / Lower Back: normal to inspection Pelvis: buttocks abnormal and other soft tissue findings Open wounds bilateral buttocks Extremity normal to inspection General Extremity: normal exam except as noted Skin Skin Narrative: Open wounds on buttocks clean well marcated Wound Narrative: Stage II Neuro oriented x3 Debridement Note Debridement Note Wound debrided: buttocks sacral stage II wounds cluster Laterality: Left Wound Grade/Stage: Stage II Type of Debridement: Excisional debridement Anesthesia Used: 5% Lidocaine Gel Depth: in the subcutaneous layer Percentage of wound debrided: 100 Instrument Used: 5mm curette Tissue Removed: Fibrin Severity: Limited To Skin Breakdown Amount of bleeding with debridement: None Bleeding Controlled with: Compression and gauze Patient tolerated procedure: Patient tolerated procedure well Post-Debridement Measurements and Additional Note: Post-Debridement Measurements/Treatment - Nurse 1 - General Ulcer Assessment Start: 04/18/24 08:55 Freq: Status: Active Protocol: CHEL Activity Type Activity Date Activity User E-sign Co-sign Detail Recorded Client Recorded Date Recorded By Document 04/18/24 08:55 DL [email or web address] 04/18/24 09:04 DL 04/18/24 08:55 WC - Today's Visit Information Type of service Follow-up Visit (Physician/FARM MANAGEMENT AGENT ) Arrival Mode Wheelchair Transfer Assistance Manual Transfer Assist (Other) x1 Patient Identification Verified (Name & Yes ) Patient Requires Transmission-Based No Precautions Height and Weight Body Mass Index (BMI) 31.6 BMI Classification Obese Vital Signs Temperature (97.8 F-99.1 F) 97.4 F L Temperature Source Temporal Pulse Rate (60-100) 62 Pulse Location Monitor Respiratory Rate (12-18) 20 H Respiratory rate source Observation Blood Pressure (90/60-120/80) 111/57 L Blood Pressure Mean (mm Hg) 75 Source Monitor History Since Last Visit- (Skip if this is Patient's initial visit) Have you changed medications since your No last visit? Any new allergies or adverse reactions No Had a fall/change in ADL's that may No increase risk of falls Signs or symptoms of abuse and/or No neglect since last visit Have you been in the hospital since your No last visit? Has dressing in place as prescribed Yes Has compression in place as prescribed Yes Has offloadiing in place as prescribed Yes Experienced any changes in pain level or No management Pain Scale: 0-10 Numeric Is Patient Pain Free? Yes WC - Nurse 1 - General Ulcer Measurement Start: 04/18/24 08:55 Freq: Status: Active Protocol: Activity Type Activity Date Activity User E-sign Co-sign Detail Recorded Client Recorded Date Recorded By Document 04/18/24 08:55 DL [email or web address] 04/18/24 09:04 DL 04/18/24 08:55 Wound Center Nurse 1 #2 L Heel -Current Size (cm) - Length 1.2 -Current Size (cm) - Width 1.2 -Current Size (cm) - Depth 0.1 -Total Square Cm 1.44 -Exudate Amt Medium -Exudate Type Serosanguineous -Wound Margin Distinct, Outline Attached -Granulation Amt Medium (34-66%) -Granulation Quality Pale,[place] -Necrosis Amt Medium (34-66%) -Necrotic Tissue Type Adherent Slough -Structure Exposed N/A -Texture (Andreea-wound Skin Appearance) Scarring -Moisture (Andreea-wound Skin Appearance) No Abnormality -Color (Andreea-wound Skin Appearance) Hemosiderin Staining -Temperature (Andreea-wound Skin No Abnormality Appearance) (Pt Warm) -Ulcer Cleansing Soap and Water -Foul Odor after Cleansing No -Anesthetic Used 5% Lidocaine Gel #1 Sacral Cluster -Current Size (cm) - Length 7 -Current Size (cm) - Width 3 -Current Size (cm) - Depth 0.1 -Total Square Cm 21 -Exudate Amt Medium -Exudate Type Serosanguineous -Wound Margin Distinct, Outline Attached -Granulation Amt Small (1-33%) -Granulation Quality [place] -Necrosis Amt Large (67-100%) -Necrotic Tissue Type Adherent Slough -Structure Exposed N/A -Texture (Andreea-wound Skin Appearance) Scarring -Color (Andreea-wound Skin Appearance) Mottled -Temperature (Andreea-wound Skin No Abnormality Appearance) (Pt Warm) -Tenderness on Palpation (Andreea-wound No Skin Appearance) -Ulcer Cleansing Soap and Water -Foul Odor after Cleansing No -Anesthetic Used 5% Lidocaine Gel Additional Wound Wound debrided: Left heel pressure ulcer Laterality: Left Wound Grade/Stage: Stage II Type of Debridement: Excisional debridement Anesthesia Used: 5% Lidocaine Gel Depth: in the subcutaneous layer Percentage of wound debrided: 100 Instrument Used: 3mm curette Severity: Limited To Skin Breakdown Bleeding Controlled with: Compression and gauze Additional Wound Percentage of wound debrided: 100 Patient tolerated procedure: Patient tolerated procedure well Assessment/Plan Assessment/Plan (1) Mobility impaired: CODE(S): Z74.09 - Other reduced mobility (2) Decubitus ulcer of buttock, stage 2: CODE(S): L89.302 - Pressure ulcer of unspecified buttock, stage 2 QUALIFIERS: Laterality: unspecified laterality Qualified Code(s): L89.302 - Pressure ulcer of unspecified buttock, stage 2 PLAN: Wash buttocks with antibacterial soap. Apply silver alginate to wound base cover with Adaptic and absorbent dressing every day Try the overlay for bed he can get through home health care to order Follow-up in 1 week (3) Type 2 diabetes mellitus: CODE(S): E11.9 - Type 2 diabetes mellitus without complications QUALIFIERS: Diabetes mellitus termite exterminator insulin use: without termite exterminator use Diabetes mellitus complication status: with circulatory complication Diabetes mellitus complication detail: with other circulatory complications Qualified Code(s): E11.59 - Type 2 diabetes mellitus with other circulatory complications (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 Every day elevate to not touching mattress
--- NOTE | 2024-04-23 15:42 | WC ---
WOUND CX'S REVIEWED BY JENNIE. N.O.'S RECEIVED TO START LEVAQUIN AND METRONIDAZOLE. [place] UPDATED. ALLERGIES VERIFIED. CALLED TO PHARMACY OF CHOICE [facility] IN [place].
[2024-04-25 09:00] VITALS: BP 117/53; PULSE 81; RESP 18; TEMP 36.2; BMI 31.6
--- NOTE | 2024-04-25 11:19 | PCM.WC.PN ---
History of Present Illness Date of Service: 04/25/24 Chief Complaint: Follow-up on buttocks right and left wounds that have been going on for months. 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 He lays on his chair most of the day. And has developed 2 areas on his buttocks sores that have gotten bigger and they have been trying to close for months. Currently there is been using antibiotic ointment. Also has tried Silvadene creams and other things through his doctor Now he has been referred here to the wound center Progress of Wound: After the last hospitalization in the coccyx wounds worsened and it is larger that were clustering and then he developed a left medial heel wound also from pressure. We ordered a overlay for mattress. They are floating the left heel and wearing a heel pad at home. The coccyx superior and is deeper and more yellow and more painful for him. The inferior and is pink and near the anus are healing getting smaller. Cultures came back positive for bacteria and anaerobes patient will be started on Levaquin and metronidazole also. They had a bad week and I think it is because of the infection you can see the perimeter of the wound very erythematous and tender to palpate. Still not open deep but still a superficial wound but is stage II. Subjective Subjective is just beside herself with the pain and we discussed once he gets on the antibiotics establish she is only had 1 or 2 days of them it he will start to feel better. Objective Data Objective Data Again were fighting infection and anaerobes and patient is trying to be cooperative we get the overlay going and floating his heel heel looks better still has a large erythematous ring around it very tender to palpate still not open deep still superficial. Vital Signs: Vital Signs Temp Pulse Resp BP 97.1 F L 81 18 117/53 L 04/25/24 09:00 04/25/24 09:00 04/25/24 09:00 04/25/24 09:00 Weight: 220 lb 0.271 oz Body Mass Index (BMI) 31.6 Lab / Micro Data Micro: Microbiology 04/18/24 09:15 Wound - Other Gram Stain - Final 04/18/24 09:15 Wound - Other Wound Culture - Final Morganella morganii sp morgani Streptococcus mitis/ oralis Staphylococcus epidermidis Pseudomonas aeruginosa 04/18/24 09:15 Wound - Other Anaerobic Culture - Final Anaerobic cocci Physical Exam Const oriented x3 General Appearance: cooperative Exam Limitations: no limitations HEENT normocephalic Eyes General Eye: normal appearance of both eyes Resp normal respiratory effort Effort and Inspection: able to speak in complete sentences Auscultation: clear to auscultation bilaterally Cardio regular rate and regular rhythm Palpation: normal PMI Rate: regular rate Rhythm: regular rhythm Back/Spine Cervical Spine: cervical ROM normal Thoracic Spine / Upper Back: normal to inspection Lumbar Spine / Lower Back: normal to inspection Pelvis: buttocks abnormal and other soft tissue findings Open wounds bilateral buttocks Extremity normal to inspection General Extremity: normal exam except as noted Skin Skin Narrative: Open wounds on buttocks clean well marcated Wound Narrative: Stage II Neuro oriented x3 Debridement Note Debridement Note Wound debrided: buttocks sacral stage II wounds cluster Laterality: Left Wound Grade/Stage: Stage II Type of Debridement: Excisional debridement Anesthesia Used: 5% Lidocaine Gel Depth: in the subcutaneous layer Percentage of wound debrided: 100 Instrument Used: 5mm curette Tissue Removed: Fibrin Severity: Limited To Skin Breakdown Amount of bleeding with debridement: None Bleeding Controlled with: Compression and gauze Patient tolerated procedure: Patient tolerated procedure well Post-Debridement Measurements and Additional Note: Post-Debridement Measurements/Treatment - Nurse 1 - General Ulcer Assessment Start: 04/18/24 08:55 Freq: Status: Active Protocol: [email or web address] Activity Type Activity Date Activity User E-sign Co-sign Detail Recorded Client Recorded Date Recorded By Document 04/18/24 08:55 DL 10.10.25.7 04/18/24 09:04 DL Document 04/25/24 09:00 DL [id number] 04/25/24 09:10 DL 04/18/24 04/25/24 08:55 09:00 - Today's Visit Information Type of service Follow-up Visit Follow-up Visit (Physician/PISTON MAKER (Physician/PISTON MAKER ) ) Arrival Mode Wheelchair Wheelchair Transfer Assistance Manual Manual Transfer Assist (Other) x1 x2 Patient Identification Verified (Name & Yes Yes ) Patient Requires Transmission-Based No No Precautions Height and Weight Body Mass Index (BMI) 31.6 31.6 BMI Classification Obese Obese Vital Signs Temperature (97.8 F-99.1 F) 97.4 F L 97.1 F L Temperature Source Temporal Temporal Pulse Rate (60-100) 62 81 Pulse Location Monitor Monitor Respiratory Rate (12-18) 20 H 18 Respiratory rate source Observation Observation Blood Pressure (90/60-120/80) 111/57 L 117/53 L Blood Pressure Mean (mm Hg) 75 74 Source Monitor Monitor History Since Last Visit- (Skip if this is Patient's initial visit) Have you changed medications since your No No last visit? Any new allergies or adverse reactions No No Had a fall/change in ADL's that may No No increase risk of falls Signs or symptoms of abuse and/or No No neglect since last visit Have you been in the hospital since your No No last visit? Has dressing in place as prescribed Yes Yes Has compression in place as prescribed Yes Yes Has offloadiing in place as prescribed Yes Yes Experienced any changes in pain level or No No management Pain Scale: 0-10 Numeric Is Patient Pain Free? Yes Yes WC - Nurse 1 - General Ulcer Measurement Start: 04/18/24 08:55 Freq: Status: Active Protocol: Activity Type Activity Date Activity User E-sign Co-sign Detail Recorded Client Recorded Date Recorded By Document 04/18/24 08:55 DL 10.10.25.7 04/18/24 09:04 DL Document 04/25/24 09:00 DL [id number] 04/25/24 09:10 DL 04/18/24 04/25/24 08:55 09:00 Wound Center Nurse 1 #2 L Heel -Current Size (cm) - Length 1.2 1.4 -Current Size (cm) - Width 1.2 1.1 -Current Size (cm) - Depth 0.1 0.1 -Total Square Cm 1.44 1.54 -Exudate Amt Medium Medium -Exudate Type Serosanguineous Serosanguineous -Wound Margin Distinct, Distinct, Outline Outline Attached Attached -Granulation Amt Medium (34-66%) Large (67-100%) -Granulation Quality Pale,[place] Pale -Necrosis Amt Medium (34-66%) Large (67-100%) -Necrotic Tissue Type Adherent Slough Adherent Slough -Structure Exposed N/A N/A -Texture (Andreea-wound Skin Appearance) Scarring Scarring -Moisture (Andreea-wound Skin Appearance) No Abnormality Dry/Scaly -Color (Andreea-wound Skin Appearance) Hemosiderin Erythema,Rubor Staining -Temperature (Andreea-wound Skin No Abnormality No Abnormality Appearance) (Pt Warm) (Pt Warm) -Ulcer Cleansing Soap and Water Soap and Water -Foul Odor after Cleansing No No -Anesthetic Used 5% Lidocaine 5% Lidocaine Gel Gel #1 Sacral Cluster -Current Size (cm) - Length 7 7.3 -Current Size (cm) - Width 3 4 -Current Size (cm) - Depth 0.1 0.2 -Total Square Cm 21 29.2 -Exudate Amt Medium Medium -Exudate Type Serosanguineous Serosanguineous -Wound Margin Distinct, Distinct, Outline Outline Attached Attached -Granulation Amt Small (1-33%) Small (1-33%) -Granulation Quality [place] -Necrosis Amt Large (67-100%) Large (67-100%) -Necrotic Tissue Type Adherent Slough Adherent Slough -Structure Exposed N/A N/A -Texture (Andreea-wound Skin Appearance) Scarring Rash -Moisture (Andreea-wound Skin Appearance) Weeping -Color (Andreea-wound Skin Appearance) Mottled Mottled -Temperature (Andreea-wound Skin No Abnormality No Abnormality Appearance) (Pt Warm) (Pt Warm) -Tenderness on Palpation (Andreea-wound No Skin Appearance) -Ulcer Cleansing Soap and Water Soap and Water -Foul Odor after Cleansing No No -Anesthetic Used 5% Lidocaine 5% Lidocaine Gel Gel WC - Nurse 2 - General Ulcer CM Notes Start: 04/18/24 08:55 Freq: Status: Active Protocol: Activity Type Activity Date Activity User E-sign Co-sign Detail Recorded Client Recorded Date Recorded By Document 04/18/24 09:11 [facility] 10.10.25.7 04/18/24 09:24 [facility] Document 04/25/24 09:17 [facility] [id number] 04/25/24 09:28 [facility] 04/18/24 04/25/24 09:11 09:17 Wound Center Nurse 2 #2 L Heel -Time 09:16 09:25 -Correct Patient Yes Yes -Correct Side, Site, Position Yes Yes -Correct Procedure Yes Yes -Procedure Performed Yes Yes -Type of Procedure Debridement Debridement -Clinical Debridement Subcutaneous Subcutaneous -Tissue Removed Subcutaneous Subcutaneous -Post Debridement (cm) - Length 1.5 1.5 -Post Debridement (cm) - Width 1.2 1.2 -Post Debridement (cm) - Depth 0.1 0.1 -Total Square (Post) (cm) 1.80 1.80 -Area of Debridement (cm) - Length 1.5 1.5 -Area of Debridement (cm) - Width 1.2 1.2 -Total Square (Area) (cm) 1.80 1.80 -Tunneling No No -Undermining/Tunneling No No -Circular Undermining No No -Wound/Ulcer Outcome Not Healed Not Healed -Ulcer Cleansing Rinsed/ Rinsed/ Irrigated with Irrigated with Saline Saline -Foul Odor after Cleansing No No -Bioengineered Tissue No No -Bleeding Controlled with Pressure Pressure -Treatment Response Procedure Procedure Tolerated Well Tolerated Well -Offloading Yes Yes -Type of Offloading Other Other -Other Type of Offloading heel protector; heel protector/ float heel float heels -Debridement - Subq, 1st 20sq cm Yes No -Debridement, SubQ, ea addt'l 20sq cm 1 or part thereof #1 Sacral Cluster -Time 09:12 09:20 -Correct Patient Yes Yes -Correct Side, Site, Position Yes Yes -Correct Procedure Yes Yes -Procedure Performed Yes Yes -Type of Procedure Debridement Debridement -Clinical Debridement Subcutaneous Subcutaneous -Tissue Removed Subcutaneous Subcutaneous -Post Debridement (cm) - Length 8.5 7 -Post Debridement (cm) - Width 3.0 3.5 -Post Debridement (cm) - Depth 0.2 0.1 -Total Square (Post) (cm) 25.50 24.5 -Area of Debridement (cm) - Length 8.5 7 -Area of Debridement (cm) - Width 3.0 3.5 -Total Square (Area) (cm) 25.50 24.5 -Tunneling No No -Undermining/Tunneling No No -Circular Undermining No No -Wound/Ulcer Outcome Not Healed Not Healed -Ulcer Cleansing Rinsed/ Rinsed/ Irrigated with Irrigated with Saline Saline -Foul Odor after Cleansing No No -Bioengineered Tissue No No -Bleeding Controlled with Pressure Pressure -Treatment Response Procedure Procedure Tolerated Well Tolerated Well -Offloading Yes Yes -Type of Offloading Other Other -Other Type of Offloading overlay overlay mattress, w/c mattress cushion -Pressure Reduction Mattress overlay -Debridement - Subq, 1st 20sq cm No Yes -Debridement, SubQ, ea addt'l 20sq cm 1 or part thereof Pain Scale: 0-10 Numeric Is Patient Pain Free? Yes Yes - Nurse 3 - General Ulcer D/C NN Start: 04/18/24 08:55 Freq: Status: Active Protocol: Activity Type Activity Date Activity User E-sign Co-sign Detail Recorded Client Recorded Date Recorded By Document 04/18/24 09:39 DL 10.10.25.7 04/18/24 09:41 DL Document 04/25/24 09:39 MT [id number] 04/25/24 09:41 MT 04/18/24 04/25/24 09:39 09:39 Wound Care Center Nurse 3 #2 L Heel -Ulcer Cleansing Rinsed/ Irrigated with Saline -Foul Odor after Cleansing No -Primary Dressing Applied Fibracol Plus Fibracol Plus 4x4,Mepilex 4x4,Mepilex Border Border -Fibracol Plus 4x4 1 1 -Mepilex Border 1 1 #1 Sacral Cluster -Ulcer Cleansing Rinsed/ Irrigated with Saline -Foul Odor after Cleansing No -Primary Dressing Applied Mepilex Border, Mepilex Border, Silvercel Silvercel -Mepilex Border 1 1 -Silvercel 1 1 Treatment Response Procedure Tolerated Well Pain Scale: 0-10 Numeric Is Patient Pain Free? Yes Yes - Visit Discharge Discharge Condition Stable Ambulatory Status Wheelchair Transportation Private [facility] Facility Type Home Health Orders Sent Yes Additional Wound Wound debrided: Left heel pressure ulcer Laterality: Left Wound Grade/Stage: Stage II Type of Debridement: Excisional debridement Anesthesia Used: 5% Lidocaine Gel Depth: in the subcutaneous layer Percentage of wound debrided: 100 Instrument Used: 3mm curette Severity: Limited To Skin Breakdown Bleeding Controlled with: Compression and gauze Additional Wound Percentage of wound debrided: 100 Patient tolerated procedure: Patient tolerated procedure well Assessment/Plan Assessment/Plan (1) Mobility impaired: CODE(S): Z74.09 - Other reduced mobility (2) Decubitus ulcer of buttock, stage 2: CODE(S): L89.302 - Pressure ulcer of unspecified buttock, stage 2 QUALIFIERS: Laterality: unspecified laterality Qualified Code(s): L89.302 - Pressure ulcer of unspecified buttock, stage 2 PLAN: Wash buttocks with antibacterial soap. 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 Every day elevate to not touching mattress
--- NOTE | 2024-05-01 07:33 | WC ---
CX RESULTS Kulwinder MEYERS REVIEWED PER JENNIE BARBOZA. N.O. TO START AUGMENTIN. ALLERGIES VERIFIRED. WILL CALL TO [facility]- PTS PREFERRED PHARMACY. WILL UPDATE PT AND .
[2024-05-02 09:13] VITALS: BP 99/43; PULSE 75; RESP 18; TEMP 35.9; BMI 31.6
--- NOTE | 2024-05-02 12:12 | PCM.WC.PN ---
History of Present Illness Date of Service: 05/02/24 Chief Complaint: Follow-up on buttocks right and left wounds that have been going on for months. 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 He lays on his chair most of the day. And has developed 2 areas on his buttocks sores that have gotten bigger and they have been trying to close for months. Currently there is been using antibiotic ointment. Also has tried Silvadene creams and other things through his doctor Now he has been referred here to the wound center Progress of Wound: After the last hospitalization in the coccyx wounds worsened and it is larger that were clustering and then he developed a left medial heel wound also from pressure. We ordered a overlay for mattress. They are floating the left heel and wearing a heel pad at home. The coccyx superior and is improving in the yellow area is much smaller but patient complains that still painful. Still a stage II and no depth which is good. The left left heel is still has reddened area is still closed and the bulbous darkened red is shrinking and his heel looks much better. thinks he kicked the left great toe and he has a 9 open but a abraised area under the left great toe that we will start dressing changes on. He also has some dried scabs on the right posadas leg from where he hit that also but nothing to be covered. Cultures came back positive again on his UA he will for E. coli so he is can be started on another antibiotic so basically I told the just to start keeping him on different antibiotics when he finishes 1 start another. The doctor also found that his urine still has improvement nitrofuran nice to take our antibiotic first that ones not such a good 1. Subjective Subjective and are agreeable to plan Objective Data Objective Data As stated above all wounds are improving they look much better than they did last week patient is still having a lot of pain. Will continue the silver cell to the coccyx area it seems to be working well Fibracol to the heel and also to the left toe great toe right posadas he can just keep it covered to protect the scabs Vital Signs: Vital Signs Temp Pulse Resp BP 96.7 F L 75 18 99/43 L 05/02/24 09:13 05/02/24 09:13 05/02/24 09:13 05/02/24 09:13 Weight: 220 lb 0.271 oz Body Mass Index (BMI) 31.6 Lab / Micro Data Attestation: I reviewed the patient's lab results. Lab results narrative: Growing many bacteria's and anaerobes patient will be on antibiotics for a while discussed with family how to take them in order. Micro: Microbiology 04/25/24 09:20 Wound - Heel, Left Gram Stain - Final 04/25/24 09:20 Wound - Heel, Left Wound Culture - Final Escherichia coli Staphylococcus epidermidis Staphylococcus capitis 04/25/24 09:20 Wound - Heel, Left Anaerobic Culture - Final No anaerobic bacteria isolated. 04/18/24 09:15 Wound - Other Gram Stain - Final 04/18/24 09:15 Wound - Other Wound Culture - Final Morganella morganii sp morgani Streptococcus mitis/ oralis Staphylococcus epidermidis Pseudomonas aeruginosa 04/18/24 09:15 Wound - Other Anaerobic Culture - Final Anaerobic cocci Physical Exam Const oriented x3 General Appearance: cooperative Exam Limitations: no limitations HEENT normocephalic Eyes General Eye: normal appearance of both eyes Resp normal respiratory effort Effort and Inspection: able to speak in complete sentences Auscultation: clear to auscultation bilaterally Cardio regular rate and regular rhythm Palpation: normal PMI Rate: regular rate Rhythm: regular rhythm Back/Spine Cervical Spine: cervical ROM normal Thoracic Spine / Upper Back: normal to inspection Lumbar Spine / Lower Back: normal to inspection Pelvis: buttocks abnormal and other soft tissue findings Open wounds bilateral buttocks Extremity normal to inspection General Extremity: normal exam except as noted Skin Skin Narrative: Open wounds on buttocks clean well marcated Wound Narrative: Stage II Neuro oriented x3 Debridement Note Debridement Note Wound debrided: buttocks sacral stage II wounds cluster Laterality: Left Wound Grade/Stage: Stage II Type of Debridement: Excisional debridement Anesthesia Used: 5% Lidocaine Gel Depth: in the subcutaneous layer Percentage of wound debrided: 100 Instrument Used: 5mm curette Tissue Removed: Fibrin Severity: Limited To Skin Breakdown Amount of bleeding with debridement: None Bleeding Controlled with: Compression and gauze Patient tolerated procedure: Patient tolerated procedure well Post-Debridement Measurements and Additional Note: Post-Debridement Measurements/Treatment WC - Nurse 1 - General Ulcer Assessment Start: 04/18/24 08:55 Freq: Status: Active Protocol: CHEL Activity Type Activity Date Activity User E-sign Co-sign Detail Recorded Client Recorded Date Recorded By Document 04/18/24 08:55 DL 07.26.25.7 04/18/24 09:04 DL Document 04/25/24 09:00 DL 07.26..7 04/25/24 09:10 DL Document 05/02/24 09:13 RB ound 05/02/24 09:17 RB 04/18/24 04/25/24 05/02/24 08:55 09:00 09:13 WC - Today's Visit Information Type of service Follow-up Visit Follow-up Visit Follow-up Visit (Physician/WHITEWATER RAFTING GUIDE (Physician/WHITEWATER RAFTING GUIDE (Physician/WHITEWATER RAFTING GUIDE ) ) ) Arrival Mode Wheelchair Wheelchair Wheelchair Transfer Assistance Manual Manual None Transfer Assist (Other) x1 x2 Patient Identification Verified (Name & Yes Yes Yes ) Patient Requires Transmission-Based No No No Precautions Height and Weight Body Mass Index (BMI) 31.6 31.6 31.6 BMI Classification Obese Obese Obese Vital Signs Temperature (97.8 F-99.1 F) 97.4 F L 97.1 F L 96.7 F L Temperature Source Temporal Temporal Temporal Pulse Rate (60-100) 62 81 75 Pulse Location Monitor Monitor Monitor Respiratory Rate (12-18) 20 H 18 18 Respiratory rate source Observation Observation Observation Blood Pressure (90/60-120/80) 111/57 L 117/53 L 99/43 L Blood Pressure Mean (mm Hg) 75 74 61 Source Monitor Monitor Monitor Position Sitting Blood Pressure Location Left Arm History Since Last Visit- (Skip if this is Patient's initial visit) Have you changed medications since your No No No last visit? Any new allergies or adverse reactions No No No Had a fall/change in ADL's that may No No No increase risk of falls Signs or symptoms of abuse and/or No No No neglect since last visit Have you been in the hospital since your No No No last visit? Has dressing in place as prescribed Yes Yes Yes Has compression in place as prescribed Yes Yes No Has offloadiing in place as prescribed Yes Yes Yes Experienced any changes in pain level or No No No management Pain Scale: 0-10 Numeric Is Patient Pain Free? Yes Yes No sacral -Description Sharp -Intensity 8 -Duration (hours) Chronic -Pain Behavior Guarding -Pain Aggravating Factors Sitting, Debridement -Alleviating Factors/Interventions Medication -Effectiveness of Alleviating Factor/ Minimally Intervention effective WC - Nurse 1 - General Ulcer Measurement Start: 04/18/24 08:55 Freq: Status: Active Protocol: Activity Type Activity Date Activity User E-sign Co-sign Detail Recorded Client Recorded Date Recorded By Document 04/18/24 08:55 DL 10.10.25.7 04/18/24 09:04 DL Document 04/25/24 09:00 DL 10.10.25.7 04/25/24 09:10 DL Document 05/02/24 09:13 RB ound 05/02/24 09:17 RB 04/18/24 04/25/24 05/02/24 08:55 09:00 09:13 Wound Center Nurse 1 #2 L Heel -Combined with other wound No -Current Size (cm) - Length 1.2 1.4 0.1 -Current Size (cm) - Width 1.2 1.1 0.1 -Current Size (cm) - Depth 0.1 0.1 0.1 -Total Square Cm 1.44 1.54 0.01 -Tunneling No -Undermining/Tunneling No -Circular Undermining No -Exudate Amt Medium Medium Medium -Exudate Type Serosanguineous Serosanguineous Serosanguineous -Wound Margin Distinct, Distinct, Distinct, Outline Outline Outline Attached Attached Attached -Granulation Amt Medium (34-66%) Large (67-100%) Medium (34-66%) -Granulation Quality Pale,[place] Pale [place] -Slough/Fibrin Yes -Necrosis Amt Medium (34-66%) Large (67-100%) Medium (34-66%) -Necrotic Tissue Type Adherent Slough Adherent Slough Adherent Slough -Structure Exposed N/A N/A N/A -Texture (Andreea-wound Skin Appearance) Scarring Scarring Assessed -Moisture (Andreea-wound Skin Appearance) No Abnormality Dry/Scaly Assessed -Color (Andreea-wound Skin Appearance) Hemosiderin Erythema,Rubor Assessed Staining -Temperature (Andreea-wound Skin No Abnormality No Abnormality No Abnormality Appearance) (Pt Warm) (Pt Warm) (Pt Warm) -Tenderness on Palpation (Andreea-wound No Skin Appearance) -Ulcer Cleansing Soap and Water Soap and Water Wound Cleanser -Foul Odor after Cleansing No No No -Anesthetic Used 5% Lidocaine 5% Lidocaine 5% Lidocaine Gel Gel Gel #1 Sacral Cluster -Combined with other wound No -Current Size (cm) - Length 7 7.3 8 -Current Size (cm) - Width 3 4 3 -Current Size (cm) - Depth 0.1 0.2 0.1 -Total Square Cm 21 29.2 24 -Tunneling No -Undermining/Tunneling No -Circular Undermining No -Exudate Amt Medium Medium Medium -Exudate Type Serosanguineous Serosanguineous Serosanguineous -Wound Margin Distinct, Distinct, Distinct, Outline Outline Outline Attached Attached Attached -Granulation Amt Small (1-33%) Small (1-33%) Medium (34-66%) -Granulation Quality [place] -Slough/Fibrin Yes -Necrosis Amt Large (67-100%) Large (67-100%) Small (1-33%) -Necrotic Tissue Type Adherent Slough Adherent Slough Adherent Slough -Structure Exposed N/A N/A N/A -Texture (Andreea-wound Skin Appearance) Scarring Rash Assessed -Moisture (Andreea-wound Skin Appearance) Weeping Assessed -Color (Andreea-wound Skin Appearance) Mottled Mottled Assessed -Temperature ([place]ree[place]-wound Skin No Abnormality No Abnormality No Abnormality Appearance) (Pt Warm) (Pt Warm) (Pt Warm) -Tenderness on Palpation (Andreea-wound No No Skin Appearance) -Ulcer Cleansing Soap and Water Soap and Water Wound Cleanser -Foul Odor after Cleansing No No No -Anesthetic Used 5% Lidocaine 5% Lidocaine 5% Lidocaine Gel Gel Gel WC - Nurse 2 - General Ulcer CM Notes Start: 04/18/24 08:55 Freq: Status: Active Protocol: Activity Type Activity Date Activity User E-sign Co-sign Detail Recorded Client Recorded Date Recorded By Document 04/18/24 09:11 BM 10..25.7 04/18/24 09:24 BM Document 04/25/24 09:17 BMF 10..25.7 04/25/24 09:28 BMF Document 05/02/24 09:28 BMF 10..25.7 05/02/24 09:38 BMF 04/18/24 04/25/24 05/02/24 09:11 09:17 09:28 Wound Center Nurse 2 #3- L GREAT TOE -Time 09:35 -Correct Patient Yes -Correct Side, Site, Position Yes -Correct Procedure Yes -Procedure Performed Yes -Type of Procedure Debridement -Clinical Debridement Subcutaneous -Tissue Removed Subcutaneous -Post Debridement (cm) - Length 0.5 -Post Debridement (cm) - Width 0.5 -Post Debridement (cm) - Depth 0.1 -Total Square (Post) (cm) 0.25 -Area of Debridement (cm) - Length 0.5 -Area of Debridement (cm) - Width 0.5 -Total Square (Area) (cm) 0.25 -Tunneling No -Undermining/Tunneling No -Circular Undermining No -Wound/Ulcer Outcome Not Healed -Ulcer Cleansing Rinsed/ Irrigated with Saline -Foul Odor after Cleansing No -Bioengineered Tissue No -Bleeding Controlled with Pressure -Treatment Response Procedure Tolerated Well -Debridement - Subq, 1st 20sq cm No #2 L Heel -Time 09:16 09:25 09:29 -Correct Patient Yes Yes Yes -Correct Side, Site, Position Yes Yes Yes -Correct Procedure Yes Yes Yes -Procedure Performed Yes Yes Yes -Type of Procedure Debridement Debridement Debridement -Clinical Debridement Subcutaneous Subcutaneous Subcutaneous -Tissue Removed Subcutaneous Subcutaneous Subcutaneous -Post Debridement (cm) - Length 1.5 1.5 1 -Post Debridement (cm) - Width 1.2 1.2 1 -Post Debridement (cm) - Depth 0.1 0.1 0.1 -Total Square (Post) (cm) 1.80 1.80 1 -Area of Debridement (cm) - Length 1.5 1.5 1 -Area of Debridement (cm) - Width 1.2 1.2 1 -Total Square (Area) (cm) 1.80 1.80 1 -Tunneling No No No -Undermining/Tunneling No No No -Circular Undermining No No No -Wound/Ulcer Outcome Not Healed Not Healed Not Healed -Ulcer Cleansing Rinsed/ Rinsed/ Rinsed/ Irrigated with Irrigated with Irrigated with Saline Saline Saline -Foul Odor after Cleansing No No No -Bioengineered Tissue No No No -Bleeding Controlled with Pressure Pressure Pressure -Treatment Response Procedure Procedure Procedure Tolerated Well Tolerated Well Tolerated Well -Offloading Yes Yes -Type of Offloading Other Other -Other Type of Offloading heel protector; heel protector/ float heel float heels -Debridement - Subq, 1st 20sq cm Yes No No -Debridement, SubQ, ea addt'l 20sq cm 1 or part thereof #1 Sacral Cluster -Time 09:12 09:20 09:29 -Correct Patient Yes Yes Yes -Correct Side, Site, Position Yes Yes Yes -Correct Procedure Yes Yes Yes -Procedure Performed Yes Yes Yes -Type of Procedure Debridement Debridement Debridement -Clinical Debridement Subcutaneous Subcutaneous Subcutaneous -Tissue Removed Subcutaneous Subcutaneous Subcutaneous -Post Debridement (cm) - Length 8.5 7 7.5 -Post Debridement (cm) - Width 3.0 3.5 3 -Post Debridement (cm) - Depth 0.2 0.1 0.2 -Total Square (Post) (cm) 25.50 24.5 22.5 -Area of Debridement (cm) - Length 8.5 7 7.5 -Area of Debridement (cm) - Width 3.0 3.5 -Total Square (Area) (cm) 25.50 24.5 -Tunneling No No No -Undermining/Tunneling No No No -Circular Undermining No No No -Wound/Ulcer Outcome Not Healed Not Healed Not Healed -Ulcer Cleansing Rinsed/ Rinsed/ Rinsed/ Irrigated with Irrigated with Irrigated with Saline Saline Saline -Foul Odor after Cleansing No No No -Bioengineered Tissue No No No -Bleeding Controlled with Pressure Pressure Pressure -Treatment Response Procedure Procedure Procedure Tolerated Well Tolerated Well Tolerated Well -Offloading Yes Yes -Type of Offloading Other Other -Other Type of Offloading overlay overlay mattress, w/c mattress cushion -Pressure Reduction Mattress overlay -Debridement - Subq, 1st 20sq cm No Yes Yes -Debridement, SubQ, ea addt'l 20sq cm 1 1 or part thereof Pain Scale: 0-10 Numeric Is Patient Pain Free? Yes Yes Yes WC - Nurse 3 - General Ulcer D/C NN Start: 04/18/24 08:55 Freq: Status: Active Protocol: Activity Type Activity Date Activity User E-sign Co-sign Detail Recorded Client Recorded Date Recorded By Document 04/18/24 09:39 DL 07.26.25.7 04/18/24 09:41 DL Document 04/25/24 09:39 MT [id number] 04/25/24 09:41 MT Document 05/02/24 10:06 DL 07.26.25.7 05/02/24 10:07 DL 04/18/24 04/25/24 05/02/24 09:39 09:39 10:06 Wound Care Center Nurse 3 #3- L GREAT TOE -Ulcer Cleansing Rinsed/ Irrigated with Saline -Foul Odor after Cleansing No -Primary Dressing Applied Fibracol Plus 4x4 -Primary Dressing Covered/Secured with Dry Gauze, Secured with Tape -Fibracol Plus 4x4 1 #2 L Heel -Ulcer Cleansing Rinsed/ Rinsed/ Irrigated with Irrigated with Saline Saline -Foul Odor after Cleansing No No -Primary Dressing Applied Fibracol Plus Fibracol Plus Mepilex Border 4x4,Mepilex 4x4,Mepilex Border Border -Other Dressing fibracol -Fibracol Plus 4x4 1 1 -Mepilex Border 1 1 1 #1 Sacral Cluster -Ulcer Cleansing Rinsed/ Rinsed/ Irrigated with Irrigated with Saline Saline -Foul Odor after Cleansing No No -Primary Dressing Applied Mepilex Border, Mepilex Border, Mepilex Border, Silvercel Silvercel Silvercel -Mepilex Border 1 1 1 -Silvercel 1 1 1 Treatment Response Procedure Procedure Tolerated Well Tolerated Well Pain Scale: 0-10 Numeric Is Patient Pain Free? Yes Yes Yes WC - Visit Discharge Discharge Condition Stable Stable Ambulatory Status Wheelchair Wheelchair Transportation Private Auto Private Auto Accompanied by Facility Type Home Health Orders Sent Yes Additional Wound Wound debrided: Left heel pressure ulcer Laterality: Left Wound Grade/Stage: Stage II Type of Debridement: Excisional debridement Anesthesia Used: 5% Lidocaine Gel Depth: in the subcutaneous layer Percentage of wound debrided: 100 Instrument Used: 3mm curette Severity: Limited To Skin Breakdown Bleeding Controlled with: Compression and gauze Additional Wound Wound debrided: Left great toe Type of Debridement: Selective debridement Anesthesia Used: 5% Lidocaine Gel Depth: Down to and including healthy tissue Percentage of wound debrided: 100 Instrument Used: 5mm curette Tissue Removed: Fibrin Severity: Limited To Skin Breakdown Amount of bleeding with debridement: None Patient tolerated procedure: Patient tolerated procedure well Assessment/Plan Assessment/Plan (1) Mobility impaired: CODE(S): Z74.09 - Other reduced mobility (2) Decubitus ulcer of buttock, stage 2: CODE(S): L89.302 - Pressure ulcer of unspecified buttock, stage 2 QUALIFIERS: Laterality: unspecified laterality Qualified Code(s): L89.302 - Pressure ulcer of unspecified buttock, stage 2 PLAN: Wash buttocks with antibacterial soap. 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 Every day elevate to not touching mattress (6) Infected open wound: CODE(S): T14.8XXA - Other injury of unspecified body region, initial encounter; L08.9 - Local infection of the skin and subcutaneous tissue, unspecified PLAN: Continue antibiotic therapy of Augmentin twice a day till gone (7) Ulcer of foot: CODE(S): L97.509 - Non-pressure chronic ulcer of other part of unspecified foot with unspecified severity QUALIFIERS: Laterality: left Non-pressure ulcer stage: limited to breakdown of skin Qualified Code(s): L97.521 - Non-pressure chronic ulcer of other part of left foot limited to breakdown of skin PLAN: Wash the great toe with antibacterial soap and water and apply Fibracol moistened to toe cover with gauze and tape every day.
--- NOTE | 2024-05-04 11:26 | WC ---
PHOTO 05/02/24
[2024-05-09 08:43] VITALS: BP 90/30; PULSE 70; RESP 18; TEMP 36.6; BMI 31.6
--- NOTE | 2024-05-09 11:47 | PN.PCM_ITS ---
History of Present Illness Date of Service: 05/09/24 Chief Complaint: Follow-up on buttocks right and left heel wounds that have been going on for months. 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 He lays on his chair most of the day. And has developed 2 areas on his buttocks sores that have gotten bigger and they have been trying to close for months. Currently there is been using antibiotic ointment. Also has tried Silvadene creams and other things through his doctor Now he has been referred here to the wound center Progress of Wound: After the last hospitalization the coccyx wounds worsened and it is larger that were clustering and then he developed a left medial heel wound also from pressure. We ordered a overlay for mattress. They are floating the left heel and wearing a heel pad at home. The coccyx superior and is improving in the yellow area is much smaller but patient complains that still painful. Still a stage II and no depth which is good. The left left heel is still has reddened area is still closed and the bulbous darkened red is shrinking and his heel looks much better. thinks he kicked the left great toe and he has a 9 open but a abraised area under the left great toe, today that 1 looks healed and will just pad and protect it He also has some dried scabs on the right posadas leg from where he hit that also but nothing to be covered. Cultures came back positive for 3 different bugs and an anaerobe so he is can to be on antibiotic therapy for a long time. Subjective Subjective is complaining still having a lot of pain in his coccyx area and from the wounds and it rodriguez and stabbing pains he can hardly sit up she also complains that these wounds are just lasting for ever and that he is getting weaker. Will contact Dr. Cartagena because he is doing the pain management but he says the gabapentin and the tramadol is not working I think it is because the dosing is not high enough. So organ to try to get a hold of him to increase the dose. The left toe though is healed and the sacral area has not worsened and neither is the heel it still about the same. Objective Data Objective Data As stated above the coccyx area is still the same it still gets that yellow in the 1 section that is debriding off. The left heel medial is is still open also and skin is peeling which is probably a good sign. Left great toe is still healed it is just a small flat scab but the toe is not erythematous anymore either We will continue with the same treatments he started his newer antibiotic just yesterday. Vital Signs: Vital Signs Temp Pulse Resp BP O2 Del Method 98 F 70 18 90/30 L Room Air 05/09/24 08:43 05/09/24 08:43 05/09/24 08:43 05/09/24 08:43 05/09/24 08:43 Oxygen Delivery Method Room Air Weight: 220 lb 0.271 oz Body Mass Index (BMI) 31.6 Lab / Micro Data Attestation: I reviewed the patient's lab results. Micro: Microbiology 04/25/24 09:20 Wound - Heel, Left Gram Stain - Final 04/25/24 09:20 Wound - Heel, Left Wound Culture - Final Escherichia coli Staphylococcus epidermidis Staphylococcus capitis 04/25/24 09:20 Wound - Heel, Left Anaerobic Culture - Final No anaerobic bacteria isolated. 04/18/24 09:15 Wound - Other Gram Stain - Final 04/18/24 09:15 Wound - Other Wound Culture - Final Morganella morganii sp morgani Streptococcus mitis/ oralis Staphylococcus epidermidis Pseudomonas aeruginosa 04/18/24 09:15 Wound - Other Anaerobic Culture - Final Anaerobic cocci Physical Exam Const oriented x3 General Appearance: cooperative Exam Limitations: no limitations HEENT normocephalic Eyes General Eye: normal appearance of both eyes Resp normal respiratory effort Effort and Inspection: able to speak in complete sentences Auscultation: clear to auscultation bilaterally Cardio regular rate and regular rhythm Palpation: normal PMI Rate: regular rate Rhythm: regular rhythm Back/Spine Cervical Spine: cervical ROM normal Thoracic Spine / Upper Back: normal to inspection Lumbar Spine / Lower Back: normal to inspection Pelvis: buttocks abnormal and other soft tissue findings Open wounds bilateral buttocks Extremity normal to inspection General Extremity: normal exam except as noted Skin Skin Narrative: Open wounds on buttocks clean well marcated Wound Narrative: Stage II Neuro oriented x3 Debridement Note Debridement Note Wound debrided: buttocks sacral stage II wounds cluster Laterality: Left Wound Grade/Stage: Stage II Type of Debridement: Excisional debridement Anesthesia Used: 5% Lidocaine Gel Depth: in the subcutaneous layer Percentage of wound debrided: 100 Instrument Used: 5mm curette Tissue Removed: Fibrin Severity: Limited To Skin Breakdown Amount of bleeding with debridement: None Bleeding Controlled with: Compression and gauze Patient tolerated procedure: Patient tolerated procedure well Post-Debridement Measurements and Additional Note: Post-Debridement Measurements/Treatment - Nurse 1 - General Ulcer Assessment Start: 04/18/24 08:55 Freq: Status: Active Protocol: .LOWEXT Activity Type Activity Date Activity User E-sign Co-sign Detail Recorded Client Recorded Date Recorded By Document 04/18/24 08:55 DL 10.10.25.7 04/18/24 09:04 DL Document 04/25/24 09:00 DL 10.10.25.7 04/25/24 09:10 DL Document 05/02/24 09:13 RB ound 05/02/24 09:17 RB Document 05/09/24 08:43 MT [id number] 05/09/24 08:56 MT Edit Result 05/09/24 08:43 MT (1) [id number] 05/09/24 08:59 MT (1) Comment => pt aware, will => tell CLIFF WhitakerP. => Encouraged pt to => call primary care => 04/18/24 04/25/24 05/02/24 08:55 09:00 09:13 - Today's Visit Information Type of service Follow-up Visit Follow-up Visit Follow-up Visit (Physician/CONSTRUCTION LINEMAN (Physician/CONSTRUCTION LINEMAN (Physician/CONSTRUCTION LINEMAN ) ) ) Arrival Mode Wheelchair Wheelchair Wheelchair Transfer Assistance Manual Manual None Transfer Assist (Other) x1 x2 Patient Identification Verified (Name & Yes Yes Yes ) Patient Requires Transmission-Based No No No Precautions Height and Weight Body Mass Index (BMI) 31.6 31.6 31.6 BMI Classification Obese Obese Obese Vital Signs Temperature (97.8 F-99.1 F) 97.4 F L 97.1 F L 96.7 F L Temperature Source Temporal Temporal Temporal Pulse Rate (60-100) 62 81 75 Pulse Location Monitor Monitor Monitor Respiratory Rate (12-18) 20 H 18 18 Respiratory rate source Observation Observation Observation Oxygen Delivery Method Blood Pressure (90/60-120/80) 111/57 L 117/53 L 99/43 L Blood Pressure Mean (mm Hg) 75 74 61 Source Monitor Monitor Monitor Position Sitting Blood Pressure Location Left Arm Comment History Since Last Visit- (Skip if this is Patient's initial visit) Have you changed medications since your No No No last visit? Any new allergies or adverse reactions No No No Had a fall/change in ADL's that may No No No increase risk of falls Signs or symptoms of abuse and/or No No No neglect since last visit Have you been in the hospital since your No No No last visit? Has dressing in place as prescribed Yes Yes Yes Has compression in place as prescribed Yes Yes No Has offloadiing in place as prescribed Yes Yes Yes Experienced any changes in pain level or No No No management Left Footwear Right Footwear Pain Scale: 0-10 Numeric Is Patient Pain Free? Yes Yes No sacral -Description Sharp -Intensity 8 -Duration (hours) Chronic -Pain Behavior Guarding -Pain Aggravating Factors Sitting, Debridement -Alleviating Factors/Interventions Medication -Effectiveness of Alleviating Factor/ Minimally Intervention effective 05/09/24 08:43 WC - Today's Visit Information Type of service Arrival Mode Transfer Assistance Transfer Assist (Other) Patient Identification Verified (Name & ) Patient Requires Transmission-Based Precautions Height and Weight Body Mass Index (BMI) 31.6 BMI Classification Obese Vital Signs Temperature (97.8 F-99.1 F) 98 F Temperature Source Temporal Pulse Rate (60-100) 70 Pulse Location Monitor Respiratory Rate (12-18) 18 Respiratory rate source Observation Oxygen Delivery Method Room Air Blood Pressure (90/60-120/80) 90/30 L Blood Pressure Mean (mm Hg) 50 Source Monitor Position Left Lateral Blood Pressure Location Right Arm Comment pt aware, will tell ANAY Whitaker. Encouraged pt to call primary care History Since Last Visit- (Skip if this is Patient's initial visit) Have you changed medications since your last visit? Any new allergies or adverse reactions Had a fall/change in ADL's that may increase risk of falls Signs or symptoms of abuse and/or neglect since last visit Have you been in the hospital since your last visit? Has dressing in place as prescribed Yes Has compression in place as prescribed Yes Has offloadiing in place as prescribed Yes Experienced any changes in pain level or Yes management Left Footwear Regular Shoe Right Footwear Regular Shoe Pain Scale: 0-10 Numeric Is Patient Pain Free? Yes sacral -Description -Intensity -Duration (hours) -Pain Behavior -Pain Aggravating Factors -Alleviating Factors/Interventions -Effectiveness of Alleviating Factor/ Intervention WC - Nurse 1 - General Ulcer Measurement Start: 04/18/24 08:55 Freq: Status: Active Protocol: Activity Type Activity Date Activity User E-sign Co-sign Detail Recorded Client Recorded Date Recorded By Document 04/18/24 08:55 DL 10.10.25.7 04/18/24 09:04 DL Document 04/25/24 09:00 DL 10.10.25.7 04/25/24 09:10 DL Document 05/02/24 09:13 RB ound 05/02/24 09:17 RB Document 05/09/24 08:43 MT [id number] 05/09/24 08:56 MT 04/18/24 04/25/24 05/02/24 08:55 09:00 09:13 Wound Center Nurse 1 #3- L GREAT TOE -Current Size (cm) - Length -Current Size (cm) - Width -Current Size (cm) - Depth -Total Square Cm -Granulation Amt -Granulation Quality -Necrosis Amt -Necrotic Tissue Type -Texture (Andreea-wound Skin Appearance) -Moisture (Andreea-wound Skin Appearance) -Color (Andreea-wound Skin Appearance) -Temperature (Andreea-wound Skin Appearance) -Tenderness on Palpation (Andreea-wound Skin Appearance) -Ulcer Cleansing -Foul Odor after Cleansing -Anesthetic Used #2 L Heel -Combined with other wound No -Current Size (cm) - Length 1.2 1.4 0.1 -Current Size (cm) - Width 1.2 1.1 0.1 -Current Size (cm) - Depth 0.1 0.1 0.1 -Total Square Cm 1.44 1.54 0.01 -Photo Taken -Tunneling No -Undermining/Tunneling No -Circular Undermining No -Exudate Amt Medium Medium Medium -Exudate Type Serosanguineous Serosanguineous Serosanguineous -Wound Margin Distinct, Distinct, Distinct, Outline Outline Outline Attached Attached Attached -Granulation Amt Medium (34-66%) Large (67-100%) Medium (34-66%) -Granulation Quality Pale,[place] Pale [place] -Slough/Fibrin Yes -Necrosis Amt Medium (34-66%) Large (67-100%) Medium (34-66%) -Necrotic Tissue Type Adherent Slough Adherent Slough Adherent Slough -Structure Exposed N/A N/A N/A -Texture (Andreea-wound Skin Appearance) Scarring Scarring Assessed -Moisture (Andreea-wound Skin Appearance) No Abnormality Dry/Scaly Assessed -Color (Andreea-wound Skin Appearance) Hemosiderin Erythema,Rubor Assessed Staining -Temperature (Andreea-wound Skin No Abnormality No Abnormality No Abnormality Appearance) (Pt Warm) (Pt Warm) (Pt Warm) -Tenderness on Palpation (Andreea-wound No Skin Appearance) -Ulcer Cleansing Soap and Water Soap and Water Wound Cleanser -Foul Odor after Cleansing No No No -Anesthetic Used 5% Lidocaine 5% Lidocaine 5% Lidocaine Gel Gel Gel #1 Sacral Cluster -Combined with other wound No -Current Size (cm) - Length 7 7.3 8 -Current Size (cm) - Width 3 4 3 -Current Size (cm) - Depth 0.1 0.2 0.1 -Total Square Cm 21 29.2 24 -Photo Taken -Tunneling No -Undermining/Tunneling No -Circular Undermining No -Exudate Amt Medium Medium Medium -Exudate Type Serosanguineous Serosanguineous Serosanguineous -Wound Margin Distinct, Distinct, Distinct, Outline Outline Outline Attached Attached Attached -Granulation Amt Small (1-33%) Small (1-33%) Medium (34-66%) -Granulation Quality [place] -Slough/Fibrin Yes -Necrosis Amt Large (67-100%) Large (67-100%) Small (1-33%) -Necrotic Tissue Type Adherent Slough Adherent Slough Adherent Slough -Structure Exposed N/A N/A N/A -Texture (Andreea-wound Skin Appearance) Scarring Rash Assessed -Moisture (Andreea-wound Skin Appearance) Weeping Assessed -Color (Andreea-wound Skin Appearance) Mottled Mottled Assessed -Temperature (Andreea-wound Skin No Abnormality No Abnormality No Abnormality Appearance) (Pt Warm) (Pt Warm) (Pt Warm) -Tenderness on Palpation (Andreea-wound No No Skin Appearance) -Ulcer Cleansing Soap and Water Soap and Water Wound Cleanser -Foul Odor after Cleansing No No No -Anesthetic Used 5% Lidocaine 5% Lidocaine 5% Lidocaine Gel Gel Gel Lower Limb Edema Present 05/09/24 08:43 Wound Center Nurse 1 #3- L GREAT TOE -Current Size (cm) - Length 0.1 -Current Size (cm) - Width 0.1 -Current Size (cm) - Depth 0.1 -Total Square Cm 0.01 -Granulation Amt Large (67-100%) -Granulation Quality Pale,[place] -Necrosis Amt Small (1-33%) -Necrotic Tissue Type Adherent Slough -Texture (Andreea-wound Skin Appearance) Assessed -Moisture (Andreea-wound Skin Appearance) Assessed -Color (Andreea-wound Skin Appearance) Assessed -Temperature (Andreea-wound Skin No Abnormality Appearance) (Pt Warm) -Tenderness on Palpation (Andreea-wound No Skin Appearance) -Ulcer Cleansing Soap and Water -Foul Odor after Cleansing No -Anesthetic Used 5% Lidocaine Gel #2 L Heel -Combined with other wound -Current Size (cm) - Length 1.4 -Current Size (cm) - Width 1.2 -Current Size (cm) - Depth 0.1 -Total Square Cm 1.68 -Photo Taken No -Tunneling No -Undermining/Tunneling No -Circular Undermining No -Exudate Amt Small -Exudate Type Serosanguineous -Wound Margin Flat & Intact -Granulation Amt Large (67-100%) -Granulation Quality Pale,[place] -Slough/Fibrin -Necrosis Amt -Necrotic Tissue Type -Structure Exposed -Texture (Andreea-wound Skin Appearance) Assessed -Moisture (Andreea-wound Skin Appearance) Assessed -Color (Andreea-wound Skin Appearance) Assessed -Temperature (Andreea-wound Skin No Abnormality Appearance) (Pt Warm) -Tenderness on Palpation (Andreea-wound No Skin Appearance) -Ulcer Cleansing Rinsed/ Irrigated with Saline -Foul Odor after Cleansing No -Anesthetic Used 5% Lidocaine Gel #1 Sacral Cluster -Combined with other wound -Current Size (cm) - Length 8.3 -Current Size (cm) - Width 3.6 -Current Size (cm) - Depth 0.1 -Total Square Cm 29.88 -Photo Taken No -Tunneling No -Undermining/Tunneling No -Circular Undermining No -Exudate Amt Small -Exudate Type Serosanguineous -Wound Margin Flat & Intact -Granulation Amt Large (67-100%) -Granulation Quality Pale,[place] -Slough/Fibrin No -Necrosis Amt Small (1-33%) -Necrotic Tissue Type Adherent Slough -Structure Exposed -Texture (Andreea-wound Skin Appearance) Assessed -Moisture (Andreea-wound Skin Appearance) Assessed -Color (Andreea-wound Skin Appearance) Assessed -Temperature (Andreea-wound Skin No Abnormality Appearance) (Pt Warm) -Tenderness on Palpation (Andreea-wound No Skin Appearance) -Ulcer Cleansing Soap and Water -Foul Odor after Cleansing No -Anesthetic Used 5% Lidocaine Gel Lower Limb Edema Present NA WC - Nurse 2 - General Ulcer CM Notes Start: 04/18/24 08:55 Freq: Status: Active Protocol: Activity Type Activity Date Activity User E-sign Co-sign Detail Recorded Client Recorded Date Recorded By Document 04/18/24 09:11 BMF 10.10.25.7 04/18/24 09:24 BMF Document 04/25/24 09:17 BMF 10.10.25.7 04/25/24 09:28 BMF Document 05/02/24 09:28 BMF 10.10.25.7 05/02/24 09:38 BMF Document 05/09/24 09:04 BMF 10.10.25.7 05/09/24 09:19 BMF 04/18/24 04/25/24 05/02/24 09:11 09:17 09:28 Wound Center Nurse 2 #3- L GREAT TOE -Time 09:35 -Correct Patient Yes -Correct Side, Site, Position Yes -Correct Procedure Yes -Procedure Performed Yes -Type of Procedure Debridement -Clinical Debridement Subcutaneous -Tissue Removed Subcutaneous -Post Debridement (cm) - Length 0.5 -Post Debridement (cm) - Width 0.5 -Post Debridement (cm) - Depth 0.1 -Total Square (Post) (cm) 0.25 -Area of Debridement (cm) - Length 0.5 -Area of Debridement (cm) - Width 0.5 -Total Square (Area) (cm) 0.25 -Tunneling No -Undermining/Tunneling No -Circular Undermining No -Wound/Ulcer Outcome Not Healed -Ulcer Cleansing Rinsed/ Irrigated with Saline -Foul Odor after Cleansing No -Bioengineered Tissue No -Bleeding Controlled with Pressure -Treatment Response Procedure Tolerated Well -Debridement - Subq, 1st 20sq cm No #2 L Heel -Time 09:16 09:25 09:29 -Correct Patient Yes Yes Yes -Correct Side, Site, Position Yes Yes Yes -Correct Procedure Yes Yes Yes -Procedure Performed Yes Yes Yes -Type of Procedure Debridement Debridement Debridement -Clinical Debridement Subcutaneous Subcutaneous Subcutaneous -Tissue Removed Subcutaneous Subcutaneous Subcutaneous -Post Debridement (cm) - Length 1.5 1.5 1 -Post Debridement (cm) - Width 1.2 1.2 1 -Post Debridement (cm) - Depth 0.1 0.1 0.1 -Total Square (Post) (cm) 1.80 1.80 1 -Area of Debridement (cm) - Length 1.5 1.5 1 -Area of Debridement (cm) - Width 1.2 1.2 1 -Total Square (Area) (cm) 1.80 1.80 1 -Tunneling No No No -Undermining/Tunneling No No No -Circular Undermining No No No -Wound/Ulcer Outcome Not Healed Not Healed Not Healed -Ulcer Cleansing Rinsed/ Rinsed/ Rinsed/ Irrigated with Irrigated with Irrigated with Saline Saline Saline -Foul Odor after Cleansing No No No -Bioengineered Tissue No No No -Bleeding Controlled with Pressure Pressure Pressure -Treatment Response Procedure Procedure Procedure Tolerated Well Tolerated Well Tolerated Well -Offloading Yes Yes -Type of Offloading Other Other -Other Type of Offloading heel protector; heel protector/ float heel float heels -Debridement - Subq, 1st 20sq cm Yes No No -Debridement, SubQ, ea addt'l 20sq cm 1 or part thereof #1 Sacral Cluster -Time 09:12 09:20 09:29 -Correct Patient Yes Yes Yes -Correct Side, Site, Position Yes Yes Yes -Correct Procedure Yes Yes Yes -Procedure Performed Yes Yes Yes -Type of Procedure Debridement Debridement Debridement -Clinical Debridement Subcutaneous Subcutaneous Subcutaneous -Tissue Removed Subcutaneous Subcutaneous Subcutaneous -Post Debridement (cm) - Length 8.5 7 7.5 -Post Debridement (cm) - Width 3.0 3.5 3 -Post Debridement (cm) - Depth 0.2 0.1 0.2 -Total Square (Post) (cm) 25.50 24.5 22.5 -Area of Debridement (cm) - Length 8.5 7 7.5 -Area of Debridement (cm) - Width 3.0 3.5 -Total Square (Area) (cm) 25.50 24.5 -Tunneling No No No -Undermining/Tunneling No No No -Circular Undermining No No No -Wound/Ulcer Outcome Not Healed Not Healed Not Healed -Ulcer Cleansing Rinsed/ Rinsed/ Rinsed/ Irrigated with Irrigated with Irrigated with Saline Saline Saline -Foul Odor after Cleansing No No No -Bioengineered Tissue No No No -Bleeding Controlled with Pressure Pressure Pressure -Treatment Response Procedure Procedure Procedure Tolerated Well Tolerated Well Tolerated Well -Offloading Yes Yes -Type of Offloading Other Other -Other Type of Offloading overlay overlay mattress, w/c mattress cushion -Pressure Reduction Mattress overlay -Debridement - Subq, 1st 20sq cm No Yes Yes -Debridement, SubQ, ea addt'l 20sq cm 1 1 or part thereof Pain Scale: 0-10 Numeric Is Patient Pain Free? Yes Yes Yes 05/09/24 09:04 Wound Center Nurse 2 #3- L GREAT TOE -Time -Correct Patient -Correct Side, Site, Position -Correct Procedure -Procedure Performed -Type of Procedure -Clinical Debridement -Tissue Removed -Post Debridement (cm) - Length 0 -Post Debridement (cm) - Width 0 -Post Debridement (cm) - Depth 0 -Total Square (Post) (cm) 0 -Area of Debridement (cm) - Length 0 -Area of Debridement (cm) - Width 0 -Total Square (Area) (cm) 0 -Tunneling -Undermining/Tunneling -Circular Undermining -Wound/Ulcer Outcome Healed- Epithelialized -Ulcer Cleansing -Foul Odor after Cleansing -Bioengineered Tissue -Bleeding Controlled with -Treatment Response -Debridement - Subq, 1st 20sq cm #2 L Heel -Time 09:12 -Correct Patient Yes -Correct Side, Site, Position Yes -Correct Procedure Yes -Procedure Performed Yes -Type of Procedure Debridement -Clinical Debridement Subcutaneous -Tissue Removed Subcutaneous -Post Debridement (cm) - Length 1.7 -Post Debridement (cm) - Width 1.5 -Post Debridement (cm) - Depth 0.1 -Total Square (Post) (cm) 2.55 -Area of Debridement (cm) - Length 1.7 -Area of Debridement (cm) - Width 1.5 -Total Square (Area) (cm) 2.55 -Tunneling No -Undermining/Tunneling No -Circular Undermining No -Wound/Ulcer Outcome Not Healed -Ulcer Cleansing Rinsed/ Irrigated with Saline -Foul Odor after Cleansing No -Bioengineered Tissue No -Bleeding Controlled with Pressure -Treatment Response Procedure Tolerated Well -Offloading Yes -Type of Offloading Other -Other Type of Offloading heel protector; float heels -Debridement - Subq, 1st 20sq cm Yes -Debridement, SubQ, ea addt'l 20sq cm 1 or part thereof #1 Sacral Cluster -Time 09:05 -Correct Patient Yes -Correct Side, Site, Position Yes -Correct Procedure Yes -Procedure Performed Yes -Type of Procedure Debridement -Clinical Debridement Subcutaneous -Tissue Removed Subcutaneous -Post Debridement (cm) - Length 7.5 -Post Debridement (cm) - Width 3.2 -Post Debridement (cm) - Depth 0.2 -Total Square (Post) (cm) 24.00 -Area of Debridement (cm) - Length 7.5 -Area of Debridement (cm) - Width 3.2 -Total Square (Area) (cm) 24.00 -Tunneling No -Undermining/Tunneling No -Circular Undermining No -Wound/Ulcer Outcome Not Healed -Ulcer Cleansing Rinsed/ Irrigated with Saline -Foul Odor after Cleansing No -Bioengineered Tissue No -Bleeding Controlled with Pressure -Treatment Response Procedure Tolerated Well -Offloading Yes -Type of Offloading Other -Other Type of Offloading mattress overlay; chair cushion -Pressure Reduction -Debridement - Subq, 1st 20sq cm No -Debridement, SubQ, ea addt'l 20sq cm or part thereof Pain Scale: 0-10 Numeric Is Patient Pain Free? Yes WC - Nurse 3 - General Ulcer D/C NN Start: 04/18/24 08:55 Freq: Status: Active Protocol: Activity Type Activity Date Activity User E-sign Co-sign Detail Recorded Client Recorded Date Recorded By Document 04/18/24 09:39 DL 10.10.25.7 04/18/24 09:41 DL Document 04/25/24 09:39 MT [id number] 04/25/24 09:41 MT Document 05/02/24 10:06 DL 10.10.25.7 05/02/24 10:07 DL Document 05/09/24 09:36 MT [id number] 05/09/24 09:39 MT 04/18/24 04/25/24 05/02/24 09:39 09:39 10:06 Wound Care Center Nurse 3 #3- L GREAT TOE -Ulcer Cleansing Rinsed/ Irrigated with Saline -Foul Odor after Cleansing No -Primary Dressing Applied Fibracol Plus 4x4 -Primary Dressing Covered/Secured with Dry Gauze, Secured with Tape -Fibracol Plus 4x4 1 #2 L Heel -Ulcer Cleansing Rinsed/ Rinsed/ Irrigated with Irrigated with Saline Saline -Foul Odor after Cleansing No No -Primary Dressing Applied Fibracol Plus Fibracol Plus Mepilex Border 4x4,Mepilex 4x4,Mepilex Border Border -Other Dressing fibracol -Fibracol Plus 4x4 1 1 -Mepilex Border 1 1 1 #1 Sacral Cluster -Ulcer Cleansing Rinsed/ Rinsed/ Irrigated with Irrigated with Saline Saline -Foul Odor after Cleansing No No -Primary Dressing Applied Mepilex Border, Mepilex Border, Mepilex Border, Silvercel Silvercel Silvercel -Other Dressing -Mepilex Border 1 1 1 -Silvercel 1 1 1 Treatment Response Procedure Procedure Tolerated Well Tolerated Well Pain Scale: 0-10 Numeric Is Patient Pain Free? Yes Yes Yes WC - Visit Discharge Discharge Condition Stable Stable Ambulatory Status Wheelchair Wheelchair Transportation Private Auto Private Auto Accompanied by Medication Reconcilliation completed & provided to patient/care provider Clinical Summary of Care Provided Facility Type Home Health Orders Sent Yes 05/09/24 09:36 Wound Care Center Nurse 3 #3- L GREAT TOE -Ulcer Cleansing -Foul Odor after Cleansing -Primary Dressing Applied -Primary Dressing Covered/Secured with -Fibracol Plus 4x4 #2 L Heel -Ulcer Cleansing -Foul Odor after Cleansing -Primary Dressing Applied Fibracol Plus 4x4,Mepilex Border -Other Dressing -Fibracol Plus 4x4 1 -Mepilex Border 1 #1 Sacral Cluster -Ulcer Cleansing -Foul Odor after Cleansing -Primary Dressing Applied Hysept ($), Mepilex Border -Other Dressing fibracol -Mepilex Border 2 -Silvercel Treatment Response Procedure Tolerated Well Pain Scale: 0-10 Numeric Is Patient Pain Free? Yes WC - Visit Discharge Discharge Condition Stable Ambulatory Status Ambulatory Transportation Private Auto Accompanied by Medication Reconcilliation completed & No provided to patient/care provider Clinical Summary of Care Provided Yes Facility Type Orders Sent Additional Wound Wound debrided: Left heel pressure ulcer Laterality: Left Wound Grade/Stage: Stage II Type of Debridement: Excisional debridement Anesthesia Used: 5% Lidocaine Gel Depth: in the subcutaneous layer Percentage of wound debrided: 100 Instrument Used: 3mm curette Severity: Limited To Skin Breakdown Bleeding Controlled with: Compression and gauze Assessment/Plan Assessment/Plan (1) Mobility impaired: CODE(S): Z74.09 - Other reduced mobility (2) Decubitus ulcer of buttock, stage 2: CODE(S): L89.302 - Pressure ulcer of unspecified buttock, stage 2 QUALIFIERS: Laterality: unspecified laterality Qualified Code(s): L89.302 - Pressure ulcer of unspecified buttock, stage 2 PLAN: Wash buttocks with antibacterial soap. 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 Every day elevate to not touching mattress (6) Infected open wound: CODE(S): T14.8XXA - Other injury of unspecified body region, initial encounter; L08.9 - Local infection of the skin and subcutaneous tissue, unspecified PLAN: Continue antibiotic therapy (7) Ulcer of foot: CODE(S): L97.509 - Non-pressure chronic ulcer of other part of unspecified foot with unspecified severity QUALIFIERS: Laterality: left Non-pressure ulcer stage: limited to breakdown of skin Qualified Code(s): L97.521 - Non-pressure chronic ulcer of other part of left foot limited to breakdown of skin PLAN: Continue even though healed ,wash the great toe with antibacterial soap and water and apply Fibracol moistened to toe cover with gauze and tape every day.
[2024-05-16 08:51] VITALS: BP 113/48; PULSE 55; RESP 18; TEMP 35.8; BMI 31.6
--- NOTE | 2024-05-16 09:06 | PN.PCM_ITS ---
History of Present Illness Date of Service: 05/16/24 Chief Complaint: Follow-up on buttocks right and left heel wounds that have been going on for months. 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 He lays on his chair most of the day. And has developed 2 areas on his buttocks sores that have gotten bigger and they have been trying to close for months. Currently there is been using antibiotic ointment. Also has tried Silvadene creams and other things through his doctor Now he has been referred here to the wound center Progress of Wound: After the last hospitalization the coccyx wounds worsened and it is larger that were clustering and then he developed a left medial heel wound also from pressure. We ordered a overlay for mattress. They are floating the left heel and wearing a heel pad at home. The coccyx superior and is developing in the yellow area a small hole that might get a really deep. He still complains of severe pain and unable to sit on his buttocks he can state he stands to eat otherwise he is laying in bed and complains he is weaker. The left left heel is still has reddened area is measuring smaller appears to be healing still open. thinks he kicked the left great toe and he has a open but now healed and has a good scab with no redness. Cultures came back positive for 3 different bugs and an anaerobe so he is can to be on antibiotic therapy for a long time. He is currently on the second antibiotic. Subjective Subjective is stating he is having severe pain in his buttocks and can hardly stand that they had a very rough week. Objective Data Objective Data The buttocks yellow area is trying to break through and make a deeper wound working to try Santyl this week. Did not tolerate the Dakin's at all had a switch back to Fibracol for the pain. Will continue using Fibracol to the left heel and his left great toe is healed. Vital Signs: Vital Signs Temp Pulse Resp BP O2 Del Method 96.5 F L 55 L 18 113/48 L Room Air 05/16/24 08:51 05/16/24 08:51 05/16/24 08:51 05/16/24 08:51 05/09/24 08:43 Oxygen Delivery Method Room Air Weight: 220 lb 0.271 oz Body Mass Index (BMI) 31.6 Lab / Micro Data Attestation: I reviewed the patient's lab results. Micro: Microbiology 04/25/24 09:20 Wound - Heel, Left Gram Stain - Final 04/25/24 09:20 Wound - Heel, Left Wound Culture - Final Escherichia coli Staphylococcus epidermidis Staphylococcus capitis 04/25/24 09:20 Wound - Heel, Left Anaerobic Culture - Final No anaerobic bacteria isolated. 04/18/24 09:15 Wound - Other Gram Stain - Final 04/18/24 09:15 Wound - Other Wound Culture - Final Morganella morganii sp morgani Streptococcus mitis/ oralis Staphylococcus epidermidis Pseudomonas aeruginosa 04/18/24 09:15 Wound - Other Anaerobic Culture - Final Anaerobic cocci Physical Exam Const oriented x3 General Appearance: cooperative Exam Limitations: no limitations HEENT normocephalic Eyes General Eye: normal appearance of both eyes Resp normal respiratory effort Effort and Inspection: able to speak in complete sentences Auscultation: clear to auscultation bilaterally Cardio regular rate and regular rhythm Palpation: normal PMI Rate: regular rate Rhythm: regular rhythm Back/Spine Cervical Spine: cervical ROM normal Thoracic Spine / Upper Back: normal to inspection Lumbar Spine / Lower Back: normal to inspection Pelvis: buttocks abnormal and other soft tissue findings Open wounds bilateral buttocks Extremity normal to inspection General Extremity: normal exam except as noted Skin Skin Narrative: Open wounds on buttocks clean well marcated Wound Narrative: Stage II Neuro oriented x3 Debridement Note Debridement Note Wound debrided: buttocks sacral stage II wounds cluster Laterality: Left Wound Grade/Stage: Stage II Type of Debridement: Excisional debridement Anesthesia Used: 5% Lidocaine Gel Depth: in the subcutaneous layer Percentage of wound debrided: 100 Instrument Used: 5mm curette Tissue Removed: Fibrin Severity: Limited To Skin Breakdown Amount of bleeding with debridement: None Bleeding Controlled with: Compression and gauze Patient tolerated procedure: Patient tolerated procedure well Post-Debridement Measurements and Additional Note: Post-Debridement Measurements/Treatment WC - Nurse 1 - General Ulcer Assessment Start: 04/18/24 08:55 Freq: Status: Active Protocol: CHEL Activity Type Activity Date Activity User E-sign Co-sign Detail Recorded Client Recorded Date Recorded By Document 04/18/24 08:55 DL 10.10.25.7 04/18/24 09:04 DL Document 04/25/24 09:00 DL [id number] 04/25/24 09:10 DL Document 05/02/24 09:13 RB ound 05/02/24 09:17 RB Document 05/09/24 08:43 MT [id number] 05/09/24 08:56 MT Edit Result 05/09/24 08:43 MT (1) [id number] 05/09/24 08:59 MT Document 05/16/24 08:51 RB wound 05/16/24 08:55 RB (1) Comment => pt aware, will => tell Julianne, EXTRACTOR FILLER. => Encouraged pt to => call primary care => 04/18/24 04/25/24 05/02/24 08:55 09:00 09:13 WC - Today's Visit Information Type of service Follow-up Visit Follow-up Visit Follow-up Visit (Physician/INK BLENDER (Physician/INK BLENDER (Physician/INK BLENDER ) ) ) Arrival Mode Wheelchair Wheelchair Wheelchair Transfer Assistance Manual Manual None Transfer Assist (Other) x1 x2 Patient Identification Verified (Name & Yes Yes Yes ) Patient Requires Transmission-Based No No No Precautions Height and Weight Body Mass Index (BMI) 31.6 31.6 31.6 BMI Classification Obese Obese Obese Vital Signs Temperature (97.8 F-99.1 F) 97.4 F L 97.1 F L 96.7 F L Temperature Source Temporal Temporal Temporal Pulse Rate (60-100) 62 81 75 Pulse Location Monitor Monitor Monitor Respiratory Rate (12-18) 20 H 18 18 Respiratory rate source Observation Observation Observation Oxygen Delivery Method Blood Pressure (90/60-120/80) 111/57 L 117/53 L 99/43 L Blood Pressure Mean (mm Hg) 75 74 61 Source Monitor Monitor Monitor Position Sitting Blood Pressure Location Left Arm Comment History Since Last Visit- (Skip if this is Patient's initial visit) Have you changed medications since your No No No last visit? Any new allergies or adverse reactions No No No Had a fall/change in ADL's that may No No No increase risk of falls Signs or symptoms of abuse and/or No No No neglect since last visit Have you been in the hospital since your No No No last visit? Has dressing in place as prescribed Yes Yes Yes Has compression in place as prescribed Yes Yes No Has offloadiing in place as prescribed Yes Yes Yes Experienced any changes in pain level or No No No management Left Footwear Right Footwear Pain Scale: 0-10 Numeric Is Patient Pain Free? Yes Yes No sacral -Description Sharp -Intensity 8 -Duration (hours) Chronic -Pain Behavior Guarding -Pain Aggravating Factors Sitting, Debridement -Alleviating Factors/Interventions Medication -Effectiveness of Alleviating Factor/ Minimally Intervention effective 05/09/24 05/16/24 08:43 08:51 WC - Today's Visit Information Type of service Follow-up Visit (Physician/INK BLENDER ) Arrival Mode Wheelchair Transfer Assistance Manual Transfer Assist (Other) Patient Identification Verified (Name & Yes ) Patient Requires Transmission-Based No Precautions Height and Weight Body Mass Index (BMI) 31.6 31.6 BMI Classification Obese Obese Vital Signs Temperature (97.8 F-99.1 F) 98 F 96.5 F L Temperature Source Temporal Temporal Pulse Rate (60-100) 70 55 L Pulse Location Monitor Monitor Respiratory Rate (12-18) 18 18 Respiratory rate source Observation Observation Oxygen Delivery Method Room Air Blood Pressure (90/60-120/80) 90/30 L 113/48 L Blood Pressure Mean (mm Hg) 50 69 Source Monitor Monitor Position Left Lateral Semi-Fowlers Blood Pressure Location Right Arm Left Arm Comment pt aware, will tell ANAY Whitaker. Encouraged pt to call primary care History Since Last Visit- (Skip if this is Patient's initial visit) Have you changed medications since your No last visit? Any new allergies or adverse reactions No Had a fall/change in ADL's that may No increase risk of falls Signs or symptoms of abuse and/or No neglect since last visit Have you been in the hospital since your No last visit? Has dressing in place as prescribed Yes Yes Has compression in place as prescribed Yes Yes Has offloadiing in place as prescribed Yes No Experienced any changes in pain level or Yes No management Left Footwear Regular Shoe Right Footwear Regular Shoe Pain Scale: 0-10 Numeric Is Patient Pain Free? Yes No sacral -Description Aching -Intensity 10 -Duration (hours) Acute -Pain Behavior Withdrawal from Touch -Pain Aggravating Factors Sitting -Alleviating Factors/Interventions Medication -Effectiveness of Alleviating Factor/ Moderately Intervention effective WC - Nurse 1 - General Ulcer Measurement Start: 04/18/24 08:55 Freq: Status: Active Protocol: Activity Type Activity Date Activity User E-sign Co-sign Detail Recorded Client Recorded Date Recorded By Document 04/18/24 08:55 DL 07.26.25.7 04/18/24 09:04 DL Document 04/25/24 09:00 DL 07.26.2504/25/24 09:10 DL Document 05/02/24 09:13 RB ound 05/02/24 09:17 RB Document 05/09/24 08:43 MT [id number] 05/09/24 08:56 MT Document 05/16/24 08:51 RB wound 05/16/24 08:55 RB 04/18/24 04/25/24 05/02/24 08:55 09:00 09:13 Wound Center Nurse 1 #3- L GREAT TOE -Current Size (cm) - Length -Current Size (cm) - Width -Current Size (cm) - Depth -Total Square Cm -Granulation Amt -Granulation Quality -Necrosis Amt -Necrotic Tissue Type -Texture (Andreea-wound Skin Appearance) -Moisture (Andreea-wound Skin Appearance) -Color (Andreea-wound Skin Appearance) -Temperature (Andreea-wound Skin Appearance) -Tenderness on Palpation (Andreea-wound Skin Appearance) -Ulcer Cleansing -Foul Odor after Cleansing -Anesthetic Used #2 L Heel -Combined with other wound No -Current Size (cm) - Length 1.2 1.4 0.1 -Current Size (cm) - Width 1.2 1.1 0.1 -Current Size (cm) - Depth 0.1 0.1 0.1 -Total Square Cm 1.44 1.54 0.01 -Photo Taken -Tunneling No -Undermining/Tunneling No -Circular Undermining No -Exudate Amt Medium Medium Medium -Exudate Type Serosanguineous Serosanguineous Serosanguineous -Wound Margin Distinct, Distinct, Distinct, Outline Outline Outline Attached Attached Attached -Granulation Amt Medium (34-66%) Large (67-100%) Medium (34-66%) -Granulation Quality Pale,[place] -Slough/Fibrin Yes -Necrosis Amt Medium (34-66%) Large (67-100%) Medium (34-66%) -Necrotic Tissue Type Adherent Slough Adherent Slough Adherent Slough -Structure Exposed N/A N/A N/A -Texture (Andreea-wound Skin Appearance) Scarring Scarring Assessed -Moisture (Andreea-wound Skin Appearance) No Abnormality Dry/Scaly Assessed -Color (Andreea-wound Skin Appearance) Hemosiderin Erythema,Rubor Assessed Staining -Temperature (Andreea-wound Skin No Abnormality No Abnormality No Abnormality Appearance) (Pt Warm) (Pt Warm) (Pt Warm) -Tenderness on Palpation (Andreea-wound No Skin Appearance) -Ulcer Cleansing Soap and Water Soap and Water Wound Cleanser -Foul Odor after Cleansing No No No -Anesthetic Used 5% Lidocaine 5% Lidocaine 5% Lidocaine Gel Gel Gel #1 Sacral Cluster -Combined with other wound No -Current Size (cm) - Length 7 7.3 8 -Current Size (cm) - Width 3 4 3 -Current Size (cm) - Depth 0.1 0.2 0.1 -Total Square Cm 21 29.2 24 -Photo Taken -Tunneling No -Undermining/Tunneling No -Circular Undermining No -Exudate Amt Medium Medium Medium -Exudate Type Serosanguineous Serosanguineous Serosanguineous -Wound Margin Distinct, Distinct, Distinct, Outline Outline Outline Attached Attached Attached -Granulation Amt Small (1-33%) Small (1-33%) Medium (34-66%) -Granulation Quality [place] -Slough/Fibrin Yes -Necrosis Amt Large (67-100%) Large (67-100%) Small (1-33%) -Necrotic Tissue Type Adherent Slough Adherent Slough Adherent Slough -Structure Exposed N/A N/A N/A -Texture (Andreea-wound Skin Appearance) Scarring Rash Assessed -Moisture (Andreea-wound Skin Appearance) Weeping Assessed -Color (Andreea-wound Skin Appearance) Mottled Mottled Assessed -Temperature (Andreea-wound Skin No Abnormality No Abnormality No Abnormality Appearance) (Pt Warm) (Pt Warm) (Pt Warm) -Tenderness on Palpation (Andreea-wound No No Skin Appearance) -Ulcer Cleansing Soap and Water Soap and Water Wound Cleanser -Foul Odor after Cleansing No No No -Anesthetic Used 5% Lidocaine 5% Lidocaine 5% Lidocaine Gel Gel Gel Lower Limb Edema Present 05/09/24 05/16/24 08:43 08:51 Wound Center Nurse 1 #3- L GREAT TOE -Current Size (cm) - Length 0.1 -Current Size (cm) - Width 0.1 -Current Size (cm) - Depth 0.1 -Total Square Cm 0.01 -Granulation Amt Large (67-100%) -Granulation Quality Pale,[place] -Necrosis Amt Small (1-33%) -Necrotic Tissue Type Adherent Slough -Texture (Andreea-wound Skin Appearance) Assessed -Moisture (Andreea-wound Skin Appearance) Assessed -Color (Andreea-wound Skin Appearance) Assessed -Temperature (Andreea-wound Skin No Abnormality Appearance) (Pt Warm) -Tenderness on Palpation (Andreea-wound No Skin Appearance) -Ulcer Cleansing Soap and Water -Foul Odor after Cleansing No -Anesthetic Used 5% Lidocaine Gel #2 L Heel -Combined with other wound No -Current Size (cm) - Length 1.4 1.6 -Current Size (cm) - Width 1.2 1.7 -Current Size (cm) - Depth 0.1 0.1 -Total Square Cm 1.68 2.72 -Photo Taken No Yes -Tunneling No No -Undermining/Tunneling No No -Circular Undermining No No -Exudate Amt Small Medium -Exudate Type Serosanguineous Serosanguineous -Wound Margin Flat & Intact Distinct, Outline Attached -Granulation Amt Large (67-100%) Medium (34-66%) -Granulation Quality Pale,[place] -Slough/Fibrin Yes -Necrosis Amt Medium (34-66%) -Necrotic Tissue Type Adherent Slough -Structure Exposed N/A -Texture (Andreea-wound Skin Appearance) Assessed Assessed -Moisture (Andreea-wound Skin Appearance) Assessed Assessed, Maceration -Color (Andreea-wound Skin Appearance) Assessed Assessed -Temperature (Andreea-wound Skin No Abnormality No Abnormality Appearance) (Pt Warm) (Pt Warm) -Tenderness on Palpation (Andreea-wound No No Skin Appearance) -Ulcer Cleansing Rinsed/ Wound Cleanser Irrigated with Saline -Foul Odor after Cleansing No No -Anesthetic Used 5% Lidocaine 5% Lidocaine Gel Gel #1 Sacral Cluster -Combined with other wound No -Current Size (cm) - Length 8.3 7.2 -Current Size (cm) - Width 3.6 3.5 -Current Size (cm) - Depth 0.1 0.3 -Total Square Cm 29.88 25.20 -Photo Taken No Yes -Tunneling No No -Undermining/Tunneling No No -Circular Undermining No No -Exudate Amt Small Medium -Exudate Type Serosanguineous Serosanguineous -Wound Margin Flat & Intact Distinct, Outline Attached -Granulation Amt Large (67-100%) Medium (34-66%) -Granulation Quality Pale,[place] -Slough/Fibrin No Yes -Necrosis Amt Small (1-33%) Medium (34-66%) -Necrotic Tissue Type Adherent Slough Adherent Slough -Structure Exposed -Texture (Andreea-wound Skin Appearance) Assessed Assessed -Moisture (Andreea-wound Skin Appearance) Assessed Maceration -Color (Andreea-wound Skin Appearance) Assessed Assessed -Temperature (Andreea-wound Skin No Abnormality No Abnormality Appearance) (Pt Warm) (Pt Warm) -Tenderness on Palpation (Andreea-wound No No Skin Appearance) -Ulcer Cleansing Soap and Water Wound Cleanser -Foul Odor after Cleansing No No -Anesthetic Used 5% Lidocaine 4% Lidocaine Gel Solution,5% Lidocaine Gel Lower Limb Edema Present NA WC - Nurse 2 - General Ulcer CM Notes Start: 04/18/24 08:55 Freq: Status: Active Protocol: Activity Type Activity Date Activity User E-sign Co-sign Detail Recorded Client Recorded Date Recorded By Document 04/18/24 09:11 BMF 10.10.25.7 04/18/24 09:24 BM Document 04/25/24 09:17 BMF 10.10.25.7 04/25/24 09:28 BMF Document 05/02/24 09:28 BMF 10.10.25.7 05/02/24 09:38 BMF Document 05/09/24 09:04 BMF 10.10.25.7 05/09/24 09:19 BMF 04/18/24 04/25/24 05/02/24 09:11 09:17 09:28 Wound Center Nurse 2 #3- L GREAT TOE -Time 09:35 -Correct Patient Yes -Correct Side, Site, Position Yes -Correct Procedure Yes -Procedure Performed Yes -Type of Procedure Debridement -Clinical Debridement Subcutaneous -Tissue Removed Subcutaneous -Post Debridement (cm) - Length 0.5 -Post Debridement (cm) - Width 0.5 -Post Debridement (cm) - Depth 0.1 -Total Square (Post) (cm) 0.25 -Area of Debridement (cm) - Length 0.5 -Area of Debridement (cm) - Width 0.5 -Total Square (Area) (cm) 0.25 -Tunneling No -Undermining/Tunneling No -Circular Undermining No -Wound/Ulcer Outcome Not Healed -Ulcer Cleansing Rinsed/ Irrigated with Saline -Foul Odor after Cleansing No -Bioengineered Tissue No -Bleeding Controlled with Pressure -Treatment Response Procedure Tolerated Well -Debridement - Subq, 1st 20sq cm No #2 L Heel -Time 09:16 09:25 09:29 -Correct Patient Yes Yes Yes -Correct Side, Site, Position Yes Yes Yes -Correct Procedure Yes Yes Yes -Procedure Performed Yes Yes Yes -Type of Procedure Debridement Debridement Debridement -Clinical Debridement Subcutaneous Subcutaneous Subcutaneous -Tissue Removed Subcutaneous Subcutaneous Subcutaneous -Post Debridement (cm) - Length 1.5 1.5 1 -Post Debridement (cm) - Width 1.2 1.2 1 -Post Debridement (cm) - Depth 0.1 0.1 0.1 -Total Square (Post) (cm) 1.80 1.80 1 -Area of Debridement (cm) - Length 1.5 1.5 1 -Area of Debridement (cm) - Width 1.2 1.2 1 -Total Square (Area) (cm) 1.80 1.80 1 -Tunneling No No No -Undermining/Tunneling No No No -Circular Undermining No No No -Wound/Ulcer Outcome Not Healed Not Healed Not Healed -Ulcer Cleansing Rinsed/ Rinsed/ Rinsed/ Irrigated with Irrigated with Irrigated with Saline Saline Saline -Foul Odor after Cleansing No No No -Bioengineered Tissue No No No -Bleeding Controlled with Pressure Pressure Pressure -Treatment Response Procedure Procedure Procedure Tolerated Well Tolerated Well Tolerated Well -Offloading Yes Yes -Type of Offloading Other Other -Other Type of Offloading heel protector; heel protector/ float heel float heels -Debridement - Subq, 1st 20sq cm Yes No No -Debridement, SubQ, ea addt'l 20sq cm 1 or part thereof #1 Sacral Cluster -Time 09:12 09:20 09:29 -Correct Patient Yes Yes Yes -Correct Side, Site, Position Yes Yes Yes -Correct Procedure Yes Yes Yes -Procedure Performed Yes Yes Yes -Type of Procedure Debridement Debridement Debridement -Clinical Debridement Subcutaneous Subcutaneous Subcutaneous -Tissue Removed Subcutaneous Subcutaneous Subcutaneous -Post Debridement (cm) - Length 8.5 7 7.5 -Post Debridement (cm) - Width 3.0 3.5 3 -Post Debridement (cm) - Depth 0.2 0.1 0.2 -Total Square (Post) (cm) 25.50 24.5 22.5 -Area of Debridement (cm) - Length 8.5 7 7.5 -Area of Debridement (cm) - Width 3.0 3.5 -Total Square (Area) (cm) 25.50 24.5 -Tunneling No No No -Undermining/Tunneling No No No -Circular Undermining No No No -Wound/Ulcer Outcome Not Healed Not Healed Not Healed -Ulcer Cleansing Rinsed/ Rinsed/ Rinsed/ Irrigated with Irrigated with Irrigated with Saline Saline Saline -Foul Odor after Cleansing No No No -Bioengineered Tissue No No No -Bleeding Controlled with Pressure Pressure Pressure -Treatment Response Procedure Procedure Procedure Tolerated Well Tolerated Well Tolerated Well -Offloading Yes Yes -Type of Offloading Other Other -Other Type of Offloading overlay overlay mattress, w/c mattress cushion -Pressure Reduction Mattress overlay -Debridement - Subq, 1st 20sq cm No Yes Yes -Debridement, SubQ, ea addt'l 20sq cm 1 1 or part thereof Pain Scale: 0-10 Numeric Is Patient Pain Free? Yes Yes Yes 05/09/24 09:04 Wound Center Nurse 2 #3- L GREAT TOE -Time -Correct Patient -Correct Side, Site, Position -Correct Procedure -Procedure Performed -Type of Procedure -Clinical Debridement -Tissue Removed -Post Debridement (cm) - Length 0 -Post Debridement (cm) - Width 0 -Post Debridement (cm) - Depth 0 -Total Square (Post) (cm) 0 -Area of Debridement (cm) - Length 0 -Area of Debridement (cm) - Width 0 -Total Square (Area) (cm) 0 -Tunneling -Undermining/Tunneling -Circular Undermining -Wound/Ulcer Outcome Healed- Epithelialized -Ulcer Cleansing -Foul Odor after Cleansing -Bioengineered Tissue -Bleeding Controlled with -Treatment Response -Debridement - Subq, 1st 20sq cm #2 L Heel -Time 09:12 -Correct Patient Yes -Correct Side, Site, Position Yes -Correct Procedure Yes -Procedure Performed Yes -Type of Procedure Debridement -Clinical Debridement Subcutaneous -Tissue Removed Subcutaneous -Post Debridement (cm) - Length 1.7 -Post Debridement (cm) - Width 1.5 -Post Debridement (cm) - Depth 0.1 -Total Square (Post) (cm) 2.55 -Area of Debridement (cm) - Length 1.7 -Area of Debridement (cm) - Width 1.5 -Total Square (Area) (cm) 2.55 -Tunneling No -Undermining/Tunneling No -Circular Undermining No -Wound/Ulcer Outcome Not Healed -Ulcer Cleansing Rinsed/ Irrigated with Saline -Foul Odor after Cleansing No -Bioengineered Tissue No -Bleeding Controlled with Pressure -Treatment Response Procedure Tolerated Well -Offloading Yes -Type of Offloading Other -Other Type of Offloading heel protector; float heels -Debridement - Subq, 1st 20sq cm Yes -Debridement, SubQ, ea addt'l 20sq cm 1 or part thereof #1 Sacral Cluster -Time 09:05 -Correct Patient Yes -Correct Side, Site, Position Yes -Correct Procedure Yes -Procedure Performed Yes -Type of Procedure Debridement -Clinical Debridement Subcutaneous -Tissue Removed Subcutaneous -Post Debridement (cm) - Length 7.5 -Post Debridement (cm) - Width 3.2 -Post Debridement (cm) - Depth 0.2 -Total Square (Post) (cm) 24.00 -Area of Debridement (cm) - Length 7.5 -Area of Debridement (cm) - Width 3.2 -Total Square (Area) (cm) 24.00 -Tunneling No -Undermining/Tunneling No -Circular Undermining No -Wound/Ulcer Outcome Not Healed -Ulcer Cleansing Rinsed/ Irrigated with Saline -Foul Odor after Cleansing No -Bioengineered Tissue No -Bleeding Controlled with Pressure -Treatment Response Procedure Tolerated Well -Offloading Yes -Type of Offloading Other -Other Type of Offloading mattress overlay; chair cushion -Pressure Reduction -Debridement - Subq, 1st 20sq cm No -Debridement, SubQ, ea addt'l 20sq cm or part thereof Pain Scale: 0-10 Numeric Is Patient Pain Free? Yes WC - Nurse 3 - General Ulcer D/C NN Start: 04/18/24 08:55 Freq: Status: Active Protocol: Activity Type Activity Date Activity User E-sign Co-sign Detail Recorded Client Recorded Date Recorded By Document 04/18/24 09:39 DL ..25.7 04/18/24 09:41 DL Document 04/25/24 09:39 [facility] [id number] 04/25/24 09:41 MT Document 05/02/24 10:06 DL ..25.7 05/02/24 10:07 DL Document 05/09/24 09:36 [facility] [id number] 05/09/24 09:39 [place] 04/18/24 04/25/24 05/02/24 09:39 09:39 10:06 Wound Care Center Nurse 3 #3- L GREAT TOE -Ulcer Cleansing Rinsed/ Irrigated with Saline -Foul Odor after Cleansing No -Primary Dressing Applied Fibracol Plus 4x4 -Primary Dressing Covered/Secured with Dry Gauze, Secured with Tape -Fibracol Plus 4x4 1 #2 L Heel -Ulcer Cleansing Rinsed/ Rinsed/ Irrigated with Irrigated with Saline Saline -Foul Odor after Cleansing No No -Primary Dressing Applied Fibracol Plus Fibracol Plus Mepilex Border 4x4,Mepilex 4x4,Mepilex Border Border -Other Dressing fibracol -Fibracol Plus 4x4 1 1 -Mepilex Border 1 1 1 #1 Sacral Cluster -Ulcer Cleansing Rinsed/ Rinsed/ Irrigated with Irrigated with Saline Saline -Foul Odor after Cleansing No No -Primary Dressing Applied Mepilex Border, Mepilex Border, Mepilex Border, Silvercel Silvercel Silvercel -Other Dressing -Mepilex Border 1 1 1 -Silvercel 1 1 1 Treatment Response Procedure Procedure Tolerated Well Tolerated Well Pain Scale: 0-10 Numeric Is Patient Pain Free? Yes Yes Yes WC - Visit Discharge Discharge Condition Stable Stable Ambulatory Status Wheelchair Wheelchair Transportation Private Auto Private Auto Accompanied by Medication Reconcilliation completed & provided to patient/care provider Clinical Summary of Care Provided Facility Type Home Health Orders Sent Yes 05/09/24 09:36 Wound Care Center Nurse 3 #3- L GREAT TOE -Ulcer Cleansing -Foul Odor after Cleansing -Primary Dressing Applied -Primary Dressing Covered/Secured with -Fibracol Plus 4x4 #2 L Heel -Ulcer Cleansing -Foul Odor after Cleansing -Primary Dressing Applied Fibracol Plus 4x4,Mepilex Border -Other Dressing -Fibracol Plus 4x4 1 -Mepilex Border 1 #1 Sacral Cluster -Ulcer Cleansing -Foul Odor after Cleansing -Primary Dressing Applied Hysept ($), Mepilex Border -Other Dressing fibracol -Mepilex Border 2 -Silvercel Treatment Response Procedure Tolerated Well Pain Scale: 0-10 Numeric Is Patient Pain Free? Yes WC - Visit Discharge Discharge Condition Stable Ambulatory Status Ambulatory Transportation Private Auto Accompanied by Medication Reconcilliation completed & No provided to patient/care provider Clinical Summary of Care Provided Yes Facility Type Orders Sent Additional Wound Wound debrided: Left heel pressure ulcer Laterality: Left Wound Grade/Stage: Stage II Type of Debridement: Excisional debridement Anesthesia Used: 5% Lidocaine Gel Depth: in the subcutaneous layer Percentage of wound debrided: 100 Instrument Used: 3mm curette Severity: Limited To Skin Breakdown Bleeding Controlled with: Compression and gauze Assessment/Plan Assessment/Plan (1) Mobility impaired: CODE(S): Z74.09 - Other reduced mobility (2) Decubitus ulcer of buttock, stage 2: CODE(S): L89.302 - Pressure ulcer of unspecified buttock, stage 2 QUALIFIERS: Laterality: unspecified laterality Qualified Code(s): L89.302 - Pressure ulcer of unspecified buttock, stage 2 PLAN: Wash buttocks with antibacterial soap. Apply Santyl with a nickel thickness to the yellow area. 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 Every day elevate to not touching mattress (6) Infected open wound: CODE(S): T14.8XXA - Other injury of unspecified body region, initial encounter; L08.9 - Local infection of the skin and subcutaneous tissue, unspecified PLAN: Continue antibiotic therapy (7) Ulcer of foot: CODE(S): L97.509 - Non-pressure chronic ulcer of other part of unspecified foot with unspecified severity QUALIFIERS: Laterality: left Non-pressure ulcer stage: limited to breakdown of skin Qualified Code(s): L97.521 - Non-pressure chronic ulcer of other part of left foot limited to breakdown of skin PLAN: Pad and protect good scab
--- NOTE | 2024-05-16 12:02 | WC ---
PHOTO 05/16/24 [facility]
== END 2024-05-16 23:59 | disposition home or self-care (01) ==
LOC: WC 08:45
PROVIDERS: PCP Family Medicine; Referring Provider Family Medicine; Visit Provider Nurse Practitioner
DX: L89.152 Pressure ulcer of sacral region, stage 2 (principal); L89.622 Pressure ulcer of left heel, stage 2; C91.90 Lymphoid leukemia, unspecified not having achieved remission; E11.59 Type 2 diabetes mellitus with other circulatory complications
CPT/HCPCS: 11042; 11045; 87070; 87075; 87077; 87186; 87205

== ENCOUNTER 2024-06-13 08:45 | Outpatient (RCR) | payer MEDICARE, SELFPAY ==
[2024-05-17 00:39] VITALS: BP 121/74; PULSE 69; RESP 18; TEMP 35.8; BMI 31.6
[2024-05-23 08:57] VITALS: BP 96/42; PULSE 66; RESP 18; TEMP 36.2; BMI 31.6
--- NOTE | 2024-05-23 11:59 | PN.PCM_ITS ---
History of Present Illness Date of Service: 05/23/24 Chief Complaint: Follow-up on buttocks right and left heel wounds that have been going on for months. 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 He lays on his chair most of the day. And has developed 2 areas on his buttocks sores that have gotten bigger and they have been trying to close for months. Currently there is been using antibiotic ointment. Also has tried Silvadene creams and other things through his doctor Now he has been referred here to the wound center Progress of Wound: His sacral wound finally opened and has a lot of depth 1.0. I could try to cut out as much of the fat and devitalized tissue I could. Will have to start packing it with Aquacel extra patient has finished his second antibiotic and is ready to start his third antibiotic and held off because he was not sure if he should take the clindamycin. 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 Measurements are about the same except for the depth of course with the opening of the wound in the sacral area left heel same measurements. Subjective Subjective Patient was reading up on clindamycin and felt like he should not take it but I suggest that he does take it because ongoing according to sensitivities. Also he feels the burning is worse so we will try increasing his tramadol to 100 mg twice a day. He also thought that the silver helped with his burning pain so I still need to clean up so we are still going to pack the wound with Aquacel extra which has silver in it and then we will going to apply the Santyl to the rest of the wound with Fibracol over top moistened with a gauze dressing on top of that daily and follow-up in another week Objective Data Objective Data As stated above wounds are not better they are the same or worse patient needs to take his clindamycin and finish up the antibiotic therapy before I start culturing again. Had to give them lots of reassurance that they are doing the dressings right I increased his tramadol to 100 mg twice a day for pain. And will add Aquacel extra to the packing and continue with the Santyl and Fibracol on the wound base daily and sacral and left heel. Vital Signs: Vital Signs Temp Pulse Resp BP 97.1 F L 66 18 96/42 L 05/23/24 08:57 05/23/24 08:57 05/23/24 08:57 05/23/24 08:57 Weight: 220 lb 0.271 oz Body Mass Index (BMI) 31.6 Debridement Note Debridement Note Wound debrided: buttocks sacral stage II wounds cluster Laterality: Left Wound Grade/Stage: Stage II Type of Debridement: Excisional debridement Anesthesia Used: 5% Lidocaine Gel Depth: to muscle Percentage of wound debrided: 100 Instrument Used: 5mm curette, Forceps and - (Scissors) Tissue Removed: Fat tissue devitalized tissue and fibrin Severity: Fat Layer Exposed Amount of bleeding with debridement: Mild Bleeding Controlled with: Compression and gauze Patient tolerated procedure: Patient tolerated procedure well Post-Debridement Measurements and Additional Note: Post-Debridement Measurements/Treatment WC - Nurse 1 - General Ulcer Assessment Start: 05/23/24 08:57 Freq: Status: Active Protocol: CHEL Activity Type Activity Date Activity User E-sign Co-sign Detail Recorded Client Recorded Date Recorded By Document 05/23/24 08:57 RB woun 05/23/24 08:59 RB 05/23/24 08:57 WC - Today's Visit Information Type of service Follow-up Visit (Physician/POLICY ISSUE CLERK ) Arrival Mode Wheelchair Transfer Assistance Manual Patient Identification Verified (Name & Yes ) Patient Requires Transmission-Based No Precautions Height and Weight Body Mass Index (BMI) 31.6 BMI Classification Obese Vital Signs Temperature (97.8 F-99.1 F) 97.1 F L Temperature Source Temporal Pulse Rate (60-100) 66 Pulse Location Monitor Respiratory Rate (12-18) 18 Respiratory rate source Observation Blood Pressure (90/60-120/80) 96/42 L Blood Pressure Mean (mm Hg) 60 Source Monitor Position Sitting Blood Pressure Location Left Arm History Since Last Visit- (Skip if this is Patient's initial visit) Have you changed medications since your No last visit? Any new allergies or adverse reactions No Had a fall/change in ADL's that may No increase risk of falls Signs or symptoms of abuse and/or No neglect since last visit Have you been in the hospital since your No last visit? Has dressing in place as prescribed Yes Has compression in place as prescribed Yes Has offloadiing in place as prescribed No Experienced any changes in pain level or No management Pain Scale: 0-10 Numeric Is Patient Pain Free? No sacral -Description Aching -Intensity 10 -Duration (hours) Acute -Pain Behavior Guarding -Pain Aggravating Factors ADL's -Alleviating Factors/Interventions None -Effectiveness of Alleviating Factor/ Minimally Intervention effective WC - Nurse 1 - General Ulcer Measurement Start: 05/23/24 08:57 Freq: Status: Active Protocol: Activity Type Activity Date Activity User E-sign Co-sign Detail Recorded Client Recorded Date Recorded By Document 05/23/24 08:57 RB woun 05/23/24 08:59 RB 05/23/24 08:57 Wound Center Nurse 1 #2 L Heel -Combined with other wound No -Current Size (cm) - Length 2 -Current Size (cm) - Width 1.5 -Current Size (cm) - Depth 0.1 -Total Square Cm 3.0 -Tunneling No -Undermining/Tunneling No -Circular Undermining No -Exudate Amt Medium -Exudate Type Serosanguineous -Wound Margin Distinct, Outline Attached -Granulation Amt Medium (34-66%) -Granulation Quality [place] -Slough/Fibrin Yes -Necrosis Amt Medium (34-66%) -Necrotic Tissue Type Adherent Slough -Structure Exposed N/A -Texture ([place]reea-wound Skin Appearance) Assessed -Moisture (Andreea-wound Skin Appearance) Maceration -Color ([place]-wound Skin Appearance) Assessed -Temperature ([place]-wound Skin No Abnormality Appearance) (Pt Warm) -Tenderness on Palpation ([place]reea-wound No Skin Appearance) -Ulcer Cleansing Wound Cleanser -Foul Odor after Cleansing No -Anesthetic Used 5% Lidocaine Gel #1 Sacral Cluster -Combined with other wound No -Current Size (cm) - Length 7.5 -Current Size (cm) - Width 2 -Current Size (cm) - Depth 0.5 -Total Square Cm 15.0 -Tunneling No -Undermining/Tunneling No -Circular Undermining No -Exudate Amt Medium -Exudate Type Serosanguineous -Wound Margin Distinct, Outline Attached -Granulation Amt Medium (34-66%) -Granulation Quality [place] -Slough/Fibrin Yes -Necrosis Amt Medium (34-66%) -Necrotic Tissue Type Adherent Slough -Structure Exposed N/A -Texture (Andreea-wound Skin Appearance) Assessed -Moisture ([place]reea-wound Skin Appearance) Maceration -Color ([place]reea-wound Skin Appearance) Assessed -Temperature ([place]-wound Skin No Abnormality Appearance) (Pt Warm) -Tenderness on Palpation ([place]ree[place]-wound No Skin Appearance) -Ulcer Cleansing Wound Cleanser -Foul Odor after Cleansing No -Anesthetic Used 5% Lidocaine Gel WC - Nurse 2 - General Ulcer CM Notes Start: 05/23/24 08:57 Freq: Status: Active Protocol: Activity Type Activity Date Activity User E-sign Co-sign Detail Recorded Client Recorded Date Recorded By Document 05/23/24 09:02 DS 1 05/23/24 09:17 DS Edit Result 05/23/24 09:02 DS (1) [id number] 05/23/24 09:27 DS (1) #1 Sacral Cluster - Debridement, Muscle/Fascia, ea addt'l => 1 20sq cm or part thereof 05/23/24 09:02 Wound Center Nurse 2 #2 L Heel -Time 09:03 -Correct Patient Yes -Correct Side, Site, Position Yes -Correct Procedure Yes -Procedure Performed Yes -Type of Procedure Debridement -Clinical Debridement Subcutaneous -Tissue Removed Subcutaneous -Post Debridement (cm) - Length 2.0 -Post Debridement (cm) - Width 1.8 -Post Debridement (cm) - Depth 0.1 -Total Square (Post) (cm) 3.60 -Area of Debridement (cm) - Length 2.0 -Area of Debridement (cm) - Width 1.8 -Total Square (Area) (cm) 3.60 -Tunneling No -Undermining/Tunneling No -Circular Undermining No -Wound/Ulcer Outcome Not Healed -Bleeding Controlled with Pressure -Treatment Response Procedure Tolerated Well -Debridement - Subq, 1st 20sq cm Yes #1 Sacral Cluster -Time 09:03 -Correct Patient Yes -Correct Side, Site, Position Yes -Correct Procedure Yes -Procedure Performed Yes -Type of Procedure Debridement -Clinical Debridement Muscle / Fascia -Tissue Removed Muscle,Fascia -Post Debridement (cm) - Length 7.0 -Post Debridement (cm) - Width 4.0 -Post Debridement (cm) - Depth 1.5 -Total Square (Post) (cm) 28.00 -Area of Debridement (cm) - Length 7.0 -Area of Debridement (cm) - Width 4.0 -Total Square (Area) (cm) 28.00 -Tunneling No -Undermining/Tunneling No -Circular Undermining No -Wound/Ulcer Outcome Not Healed -Ulcer Cleansing Rinsed/ Irrigated with Saline -Bleeding Controlled with Pressure -Treatment Response Procedure Tolerated Well -Debridement - Muscle / Fascia, 1st Yes 20sq cm -Debridement, Muscle/Fascia, ea addt'l 1 20sq cm or part thereof Pain Scale: 0-10 Numeric Is Patient Pain Free? Yes - Nurse 3 - General Ulcer D/C NN Start: 05/23/24 08:57 Freq: Status: Active Protocol: Activity Type Activity Date Activity User E-sign Co-sign Detail Recorded Client Recorded Date Recorded By Document 05/23/24 09:40 DL [id number] 05/23/24 09:42 DL 05/23/24 09:40 Wound Care Center Nurse 3 #2 L Heel -Ulcer Cleansing Rinsed/ Irrigated with Saline -Foul Odor after Cleansing No -Primary Dressing Applied Fibracol Plus 4x4,Mepilex Border -Fibracol Plus 4x4 1 -Mepilex Border 1 #1 Sacral Cluster -Ulcer Cleansing Rinsed/ Irrigated with Saline -Foul Odor after Cleansing No -Primary Dressing Applied Aquacel AG 4x4, Mepilex Border -Other Dressing fibracol, hydrogel -Aquacel AG 4x4 1 -Mepilex Border 1 Treatment Response Procedure Tolerated Well Pain Scale: 0-10 Numeric Is Patient Pain Free? Yes - Visit Discharge Discharge Condition Stable Ambulatory Status Walker Transportation Private Auto Additional Wound Wound debrided: Left heel pressure ulcer Laterality: Left Wound Grade/Stage: Stage II Type of Debridement: Excisional debridement Anesthesia Used: 5% Lidocaine Gel Depth: in the subcutaneous layer Percentage of wound debrided: 100 Instrument Used: 3mm curette Severity: Limited To Skin Breakdown Bleeding Controlled with: Compression and gauze Assessment/Plan Assessment/Plan (1) Mobility impaired: CODE(S): Z74.09 - Other reduced mobility (2) Decubitus ulcer of buttock, stage 2: CODE(S): L89.302 - Pressure ulcer of unspecified buttock, stage 2 QUALIFIERS: Laterality: unspecified laterality Qualified Code(s): L89.302 - Pressure ulcer of unspecified buttock, stage 2 PLAN: Wash buttocks with antibacterial soap. Apply Santyl with a nickel thickness to the yellow area. 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 Every day elevate to not touching mattress (6) Infected open wound: CODE(S): T14.8XXA - Other injury of unspecified body region, initial encounter; L08.9 - Local infection of the skin and subcutaneous tissue, unspecified PLAN: Continue antibiotic therapy (7) Ulcer of foot: CODE(S): L97.509 - Non-pressure chronic ulcer of other part of unspecified foot with unspecified severity QUALIFIERS: Laterality: left Non-pressure ulcer stage: limited to breakdown of skin Qualified Code(s): L97.521 - Non-pressure chronic ulcer of other part of left foot limited to breakdown of skin PLAN: Pad and protect good scab
[2024-06-06 08:44] VITALS: BP 113/55; PULSE 63; RESP 18; TEMP 35.5; BMI 31.6
--- NOTE | 2024-06-06 11:59 | PN.PCM_ITS ---
History of Present Illness Date of Service: 06/06/24 Chief Complaint: Follow-up on buttocks right and left heel wounds that have been going on for months. 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 He lays on his chair most of the day. And has developed 2 areas on his buttocks sores that have gotten bigger and they have been trying to close for months. Currently there is been using antibiotic ointment. Also has tried Silvadene creams and other things through his doctor Now he has been referred here to the wound center Progress of Wound: The measurements for his sacral wound are smaller still has an opening area with positive depth. The has been packing it with the Aquacel extra doing well and using Santyl on the top with Fibracol over top moistened. He states the pain is better tolerated now. Because of the open area we decided to order a wound VAC for them but in the meantime he can continue with the packing until we get the wound VAC on. He is finishing up his third antibiotic at this time and it has made a difference with the wound. All in all the improved wound on the sacral area pleased with results so far we will follow-up after he gets the wound VAC. Left medial heel is improving also it still superficial and just needs to get a layer of skin on it but it is a little macerated around the edges we will change him up to also using Aquacel extra to the heel. Subjective Subjective Patient did not complain of as much pain this week and was not complaining about any kind of mishaps so far she is happy with the way the wound is looking. Reassurance was given Objective Data Objective Data Again wounds measurements are smaller we are ordering a wound VAC to be sent to the house and then they will bring it in to have it attached. Patient is to continue taking his antibiotic therapy and finish Vital Signs: Vital Signs Temp Pulse Resp BP 96 F L 63 18 113/55 L 06/06/24 08:44 06/06/24 08:44 06/06/24 08:44 06/06/24 08:44 Weight: 220 lb 0.271 oz Body Mass Index (BMI) 31.6 Lab / Micro Data Attestation: I reviewed the patient's lab results. Physical Exam Const oriented x3 General Appearance: cooperative Exam Limitations: no limitations HEENT normocephalic Eyes General Eye: normal appearance of both eyes Resp normal respiratory effort Effort and Inspection: able to speak in complete sentences Auscultation: clear to auscultation bilaterally Cardio regular rate and regular rhythm Palpation: normal PMI Rate: regular rate Rhythm: regular rhythm Back/Spine Cervical Spine: cervical ROM normal Thoracic Spine / Upper Back: normal to inspection Lumbar Spine / Lower Back: normal to inspection Pelvis: buttocks abnormal and other soft tissue findings Open wounds bilateral buttocks Extremity normal to inspection General Extremity: normal exam except as noted Skin Skin Narrative: Open wounds on buttocks clean well marcated Wound Narrative: Stage II Neuro oriented x3 Debridement Note Debridement Note Wound debrided: buttocks sacral stage II wounds cluster Laterality: Left Wound Grade/Stage: Stage II Type of Debridement: Excisional debridement Anesthesia Used: 5% Lidocaine Gel Depth: to muscle Percentage of wound debrided: 100 Instrument Used: 5mm curette, Forceps and - (Scissors) Tissue Removed: Fat tissue devitalized tissue and fibrin Severity: Fat Layer Exposed Amount of bleeding with debridement: Mild Bleeding Controlled with: Compression and gauze Patient tolerated procedure: Patient tolerated procedure well Post-Debridement Measurements and Additional Note: Post-Debridement Measurements/Treatment - Nurse 1 - General Ulcer Assessment Start: 05/23/24 08:57 Freq: Status: Active Protocol: CHEL Activity Type Activity Date Activity User E-sign Co-sign Detail Recorded Client Recorded Date Recorded By Document 05/23/24 08:57 RB woun 05/23/24 08:59 RB Document 06/06/24 08:44 DL [id number] 06/06/24 08:55 DL 05/23/24 06/06/24 08:57 08:44 - Today's Visit Information Type of service Follow-up Visit Follow-up Visit (Physician/ENVIRONMENTAL PROJECT MANAGER (Physician/ENVIRONMENTAL PROJECT MANAGER ) ) Arrival Mode Wheelchair Wheelchair Transfer Assistance Manual None Patient Identification Verified (Name & Yes Yes ) Patient Requires Transmission-Based No No Precautions Height and Weight Body Mass Index (BMI) 31.6 31.6 BMI Classification Obese Obese Vital Signs Temperature (97.8 F-99.1 F) 97.1 F L 96 F L Temperature Source Temporal Temporal Pulse Rate (60-100) 66 63 Pulse Location Monitor Monitor Respiratory Rate (12-18) 18 18 Respiratory rate source Observation Monitor Blood Pressure (90/60-120/80) 96/42 L 113/55 L Blood Pressure Mean (mm Hg) 60 74 Source Monitor Monitor Position Sitting Blood Pressure Location Left Arm History Since Last Visit- (Skip if this is Patient's initial visit) Have you changed medications since your No No last visit? Any new allergies or adverse reactions No No Had a fall/change in ADL's that may No No increase risk of falls Signs or symptoms of abuse and/or No No neglect since last visit Have you been in the hospital since your No No last visit? Has dressing in place as prescribed Yes Yes Has compression in place as prescribed Yes Yes Has offloadiing in place as prescribed No Yes Experienced any changes in pain level or No No management Pain Scale: 0-10 Numeric Is Patient Pain Free? No Yes sacral -Description Aching -Intensity 10 -Duration (hours) Acute -Pain Behavior Guarding -Pain Aggravating Factors ADL's -Alleviating Factors/Interventions None -Effectiveness of Alleviating Factor/ Minimally Intervention effective WC - Nurse 1 - General Ulcer Measurement Start: 05/23/24 08:57 Freq: Status: Active Protocol: Activity Type Activity Date Activity User E-sign Co-sign Detail Recorded Client Recorded Date Recorded By Document 05/23/24 08:57 RB woun 05/23/24 08:59 RB Document 06/06/24 08:44 DL [id number] 06/06/24 08:55 DL 05/23/24 06/06/24 08:57 08:44 Wound Center Nurse 1 #2 L Heel -Combined with other wound No -Current Size (cm) - Length 2 1.5 -Current Size (cm) - Width 1.5 2.2 -Current Size (cm) - Depth 0.1 0.1 -Total Square Cm 3.0 3.30 -Photo Taken Yes -Tunneling No -Undermining/Tunneling No -Circular Undermining No -Exudate Amt Medium -Exudate Type Serosanguineous -Wound Margin Distinct, Outline Attached -Granulation Amt Medium (34-66%) Medium (34-66%) -Granulation Quality [place] -Slough/Fibrin Yes -Necrosis Amt Medium (34-66%) Medium (34-66%) -Necrotic Tissue Type Adherent Slough Adherent Slough -Structure Exposed N/A N/A -Texture (Andreea-wound Skin Appearance) Assessed Scarring -Moisture (Andreea-wound Skin Appearance) Maceration Maceration -Color (Andreea-wound Skin Appearance) Assessed No Abnormality -Temperature (Andreea-wound Skin No Abnormality No Abnormality Appearance) (Pt Warm) (Pt Warm) -Tenderness on Palpation (Andreea-wound No No Skin Appearance) -Ulcer Cleansing Wound Cleanser Soap and Water -Foul Odor after Cleansing No -Anesthetic Used 5% Lidocaine 4% Lidocaine Gel Solution #1 Sacral Cluster -Combined with other wound No -Current Size (cm) - Length 7.5 6.2 -Current Size (cm) - Width 2 2.8 -Current Size (cm) - Depth 0.5 2.2 -Total Square Cm 15.0 17.36 -Photo Taken Yes -Tunneling No -Undermining/Tunneling No -Undermining/Tunneling Starts (O'clock 12 ) -Undermining/Tunneling Ends (O'clock) 3 -Maximum Distance (cm) 2.6 -Circular Undermining No -Exudate Amt Medium Medium -Exudate Type Serosanguineous Serosanguineous -Wound Margin Distinct, Distinct, Outline Outline Attached Attached -Granulation Amt Medium (34-66%) Medium (34-66%) -Granulation Quality [place],Red -Slough/Fibrin Yes -Necrosis Amt Medium (34-66%) Medium (34-66%) -Necrotic Tissue Type Adherent Slough Adherent Slough -Structure Exposed N/A N/A -Texture (Andreea-wound Skin Appearance) Assessed Scarring -Moisture (Andreea-wound Skin Appearance) Maceration Maceration -Color (Andreea-wound Skin Appearance) Assessed No Abnormality -Temperature (Andreea-wound Skin No Abnormality No Abnormality Appearance) (Pt Warm) (Pt Warm) -Tenderness on Palpation (Andreea-wound No No Skin Appearance) -Ulcer Cleansing Wound Cleanser Soap and Water -Foul Odor after Cleansing No No -Anesthetic Used 5% Lidocaine 5% Lidocaine Gel Gel Left Calf (cm) 38.6 Left Ankle (cm) 23.5 WC - Nurse 2 - General Ulcer CM Notes Start: 05/23/24 08:57 Freq: Status: Active Protocol: Activity Type Activity Date Activity User E-sign Co-sign Detail Recorded Client Recorded Date Recorded By Document 05/23/24 09:02 DS 1 05/23/24 09:17 DS Edit Result 05/23/24 09:02 DS (1) [id number] 05/23/24 09:27 DS Document 06/06/24 09:00 BMF [id number] 06/06/24 09:12 BMF (1) #1 Sacral Cluster - Debridement, Muscle/Fascia, ea addt'l => 1 20sq cm or part thereof 05/23/24 06/06/24 09:02 09:00 Wound Center Nurse 2 #2 L Heel -Time 09:03 09:05 -Correct Patient Yes Yes -Correct Side, Site, Position Yes Yes -Correct Procedure Yes Yes -Procedure Performed Yes Yes -Type of Procedure Debridement Debridement -Clinical Debridement Subcutaneous -Tissue Removed Subcutaneous Dermis -Post Debridement (cm) - Length 2.0 2.3 -Post Debridement (cm) - Width 1.8 2.3 -Post Debridement (cm) - Depth 0.1 0.1 -Total Square (Post) (cm) 3.60 5.29 -Area of Debridement (cm) - Length 2.0 2.3 -Area of Debridement (cm) - Width 1.8 2.3 -Total Square (Area) (cm) 3.60 5.29 -Tunneling No No -Undermining/Tunneling No No -Circular Undermining No No -Wound/Ulcer Outcome Not Healed Not Healed -Ulcer Cleansing Rinsed/ Irrigated with Saline -Foul Odor after Cleansing No -Bioengineered Tissue No -Bleeding Controlled with Pressure Pressure -Treatment Response Procedure Procedure Tolerated Well Tolerated Well -Offloading Yes -Type of Offloading Other -Other Type of Offloading heel protectors -Debridement - Subq, 1st 20sq cm Yes Yes #1 Sacral Cluster -Time : 09:00 -Correct Patient Yes Yes -Correct Side, Site, Position Yes Yes -Correct Procedure Yes Yes -Procedure Performed Yes Yes -Type of Procedure Debridement Debridement -Clinical Debridement Muscle / Fascia Muscle / Fascia -Tissue Removed Muscle,Fascia Muscle -Post Debridement (cm) - Length 7.0 6.5 -Post Debridement (cm) - Width 4.0 3.2 -Post Debridement (cm) - Depth 1.5 1.9 -Total Square (Post) (cm) 28.00 20.80 -Area of Debridement (cm) - Length 7.0 6.5 -Area of Debridement (cm) - Width 4.0 3.2 -Total Square (Area) (cm) 28.00 20.80 -Tunneling No No -Undermining/Tunneling No Yes -Undermining/Tunneling Starts (O'clock 1 ) -Undermining/Tunneling Ends (O'clock) 3 -Maximum Distance (cm) 3.0 -Circular Undermining No No -Wound/Ulcer Outcome Not Healed Not Healed -Ulcer Cleansing Rinsed/ Rinsed/ Irrigated with Irrigated with Saline Saline -Foul Odor after Cleansing No -Bioengineered Tissue No -Bleeding Controlled with Pressure Pressure -Treatment Response Procedure Procedure Tolerated Well Tolerated Well -Pressure Reduction Wheelchair cushion, Mattress overlay -Debridement - Muscle / Fascia, 1st Yes Yes 20sq cm -Debridement, Muscle/Fascia, ea addt'l 1 20sq cm or part thereof Pain Scale: 0-10 Numeric Is Patient Pain Free? Yes Yes - Nurse 3 - General Ulcer D/C NN Start: 05/23/24 08:57 Freq: Status: Active Protocol: Activity Type Activity Date Activity User E-sign Co-sign Detail Recorded Client Recorded Date Recorded By Document 05/23/24 09:40 DL [id number] 05/23/24 09:42 DL Document 06/06/24 09:24 [facility] [id number] 06/06/24 09:25 BMF 05/23/24 06/06/24 09:40 09:24 Wound Care Center Nurse 3 #2 L Heel -Ulcer Cleansing Rinsed/ Rinsed/ Irrigated with Irrigated with Saline Saline -Foul Odor after Cleansing No No -Primary Dressing Applied Fibracol Plus Aquacel AG 4x4, 4x4,Mepilex Mepilex Border Border -Aquacel AG 4x4 4 -Fibracol Plus 4x4 1 -Mepilex Border 1 1 #1 Sacral Cluster -Ulcer Cleansing Rinsed/ Rinsed/ Irrigated with Irrigated with Saline Saline -Foul Odor after Cleansing No No -Primary Dressing Applied Aquacel AG 4x4, Aquacel AG 4x4, Mepilex Border Fibracol Plus 4x4,Mepilex Border -Other Dressing fibracol, hydrogel -Aquacel AG 4x4 1 0 -Fibracol Plus 4x4 1 -Mepilex Border 1 1 Treatment Response Procedure Procedure Tolerated Well Tolerated Well Pain Scale: 0-10 Numeric Is Patient Pain Free? Yes Yes - Visit Discharge Discharge Condition Stable Stable Ambulatory Status Walker Wheelchair Transportation Private Auto Private Auto Accompanied by Additional Wound Wound debrided: Left heel pressure ulcer Laterality: Left Wound Grade/Stage: Stage II Type of Debridement: Excisional debridement Anesthesia Used: 5% Lidocaine Gel Depth: in the subcutaneous layer Percentage of wound debrided: 100 Instrument Used: 3mm curette Severity: Limited To Skin Breakdown Bleeding Controlled with: Compression and gauze Assessment/Plan Assessment/Plan (1) Mobility impaired: CODE(S): Z74.09 - Other reduced mobility (2) Decubitus ulcer of buttock, stage 2: CODE(S): L89.302 - Pressure ulcer of unspecified buttock, stage 2 QUALIFIERS: Laterality: unspecified laterality Qualified Code(s): L89.302 - Pressure ulcer of unspecified buttock, stage 2 PLAN: Wash buttocks with antibacterial soap. Apply Santyl with a nickel thickne ss to the yellow area. Pack Aquacel extra into the open wound may apply Fibracol over the entire sacral wound and moisten it very well and cover with absorbent dressing daily Use the overlay for bed Ordered wound VAC for patient's area and immediately get it plugged then get the battery recharged and bring it into the office for application Follow-up in 1 week (3) Type 2 diabetes mellitus: CODE(S): E11.9 - Type 2 diabetes mellitus without complications QUALIFIERS: Diabetes mellitus parts counterman insulin use: without skilled nursing use Diabetes mellitus complication status: with circulatory complication Diabetes mellitus complication detail: with other circulatory complications Qualified Code(s): E11.59 - Type 2 diabetes mellitus with other circulatory complications (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 Every day elevate to not touching mattress (6) Infected open wound: CODE(S): T14.8XXA - Other injury of unspecified body region, initial encounter; L08.9 - Local infection of the skin and subcutaneous tissue, unspecified PLAN: Continue antibiotic therapy (7) Ulcer of foot: CODE(S): L97.509 - Non-pressure chronic ulcer of other part of unspecified foot with unspecified severity QUALIFIERS: Laterality: left Non-pressure ulcer stage: limited to breakdown of skin Qualified Code(s): L97.521 - Non-pressure chronic ulcer of other part of left foot limited to breakdown of skin PLAN: Pad and protect good scab
--- NOTE | 2024-06-07 13:16 | WC ---
PHOTO 06/06/24 SACRUM
--- NOTE | 2024-06-07 13:19 | WC ---
PHOTO 06/06/24 LEFT HEEL
[2024-06-13 08:40] VITALS: BP 110/47; PULSE 71; RESP 18; TEMP 35.7; BMI 31.6
--- NOTE | 2024-06-13 09:19 | PCM.WC.PN ---
History of Present Illness Date of Service: 06/13/24 Chief Complaint: Follow-up on buttocks right and left heel wounds that have been going on for months. 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 He lays on his chair most of the day. And has developed 2 areas on his buttocks sores that have gotten bigger and they have been trying to close for months. Currently there is been using antibiotic ointment. Also has tried Silvadene creams and other things through his doctor Now he has been referred here to the wound center Progress of Wound: The measurements for his sacral wound are smaller still has an opening area with positive depth. We switched him over to the wound VAC on Tuesday and it is already improving the whole area. His seems to be pleased also with the outcomes. He states the pain is better. He is finished all of his antibiotics at this time no sign of infection at this time no odor. The left heel looks good to flatter we are going to apply for EpiFix to see if we can get that the closed up now. He is currently using Aquacel extra to the heel also and less maceration is noted. Subjective Subjective is more pleased with outcomes and they seem to be happy with a healing. Objective Data Objective Data Again met measurements are about the same but the healing the skin looks so beefy and the wound VAC is just doing its thing is only been on for a couple of days since already improving. I think the hole is getting smaller and the outside area is appears to be flatter. Left heel looks good it is flatter and actually getting beefy less irritated to debride. Vital Signs: Vital Signs Temp Pulse Resp BP 96.2 F L 71 18 110/47 L 06/13/24 08:40 06/13/24 08:40 06/13/24 08:40 06/13/24 08:40 Weight: 220 lb 0.271 oz Body Mass Index (BMI) 31.6 Lab / Micro Data Attestation: I reviewed the patient's lab results. Physical Exam Const oriented x3 General Appearance: cooperative Exam Limitations: no limitations HEENT normocephalic Eyes General Eye: normal appearance of both eyes Resp normal respiratory effort Effort and Inspection: able to speak in complete sentences Auscultation: clear to auscultation bilaterally Cardio regular rate and regular rhythm Palpation: normal PMI Rate: regular rate Rhythm: regular rhythm Back/Spine Cervical Spine: cervical ROM normal Thoracic Spine / Upper Back: normal to inspection Lumbar Spine / Lower Back: normal to inspection Pelvis: buttocks abnormal and other soft tissue findings Open wounds bilateral buttocks Extremity normal to inspection General Extremity: normal exam except as noted Skin Skin Narrative: Open wounds on buttocks clean well marcated Wound Narrative: Stage II Neuro oriented x3 Debridement Note Debridement Note Wound debrided: buttocks sacral stage 4 wounds cluster Laterality: Left Wound Grade/Stage: Stage II Type of Debridement: Excisional debridement Anesthesia Used: 5% Lidocaine Gel Depth: to muscle Percentage of wound debrided: 100 Instrument Used: 7mm curette and - (Scissors) Tissue Removed: Fat tissue devitalized tissue and fibrin Severity: Fat Layer Exposed Amount of bleeding with debridement: Mild Bleeding Controlled with: Compression and gauze Patient tolerated procedure: Patient tolerated procedure well Post-Debridement Measurements and Additional Note: Post-Debridement Measurements/Treatment - Nurse 1 - General Ulcer Assessment Start: 05/23/24 08:57 Freq: Status: Active Protocol: [email or web address] Activity Type Activity Date Activity User E-sign Co-sign Detail Recorded Client Recorded Date Recorded By Document 05/23/24 08:57 RB woun 05/23/24 08:59 RB Document 06/06/24 08:44 DL [id number] 06/06/24 08:55 DL Document 06/13/24 08:40 DL [id number] 06/13/24 08:50 DL 05/23/24 06/06/24 06/13/24 08:57 08:44 08:40 - Today's Visit Information Type of service Follow-up Visit Follow-up Visit Follow-up Visit (Physician/SPECIALTY SALES CONSULTANT (Physician/SPECIALTY SALES CONSULTANT (Physician/SPECIALTY SALES CONSULTANT ) ) ) Arrival Mode Wheelchair Wheelchair Wheelchair Transfer Assistance Manual None Manual Transfer Assist (Other) x1 Patient Identification Verified (Name & Yes Yes Yes ) Patient Requires Transmission-Based No No No Precautions Height and Weight Body Mass Index (BMI) 31.6 31.6 31.6 BMI Classification Obese Obese Obese Vital Signs Temperature (97.8 F-99.1 F) 97.1 F L 96 F L 96.2 F L Temperature Source Temporal Temporal Temporal Pulse Rate (60-100) 66 63 71 Pulse Location Monitor Monitor Respiratory Rate (12-18) 18 18 18 Respiratory rate source Observation Monitor Observation Blood Pressure (90/60-120/80) 96/42 L 113/55 L 110/47 L Blood Pressure Mean (mm Hg) 60 74 68 Source Monitor Monitor Monitor Position Sitting Blood Pressure Location Left Arm History Since Last Visit- (Skip if this is Patient's initial visit) Have you changed medications since your No No No last visit? Any new allergies or adverse reactions No No No Had a fall/change in ADL's that may No No No increase risk of falls Signs or symptoms of abuse and/or No No No neglect since last visit Have you been in the hospital since your No No No last visit? Has dressing in place as prescribed Yes Yes Yes Has compression in place as prescribed Yes Yes Yes Has offloadiing in place as prescribed No Yes Yes Experienced any changes in pain level or No No No management Pain Scale: 0-10 Numeric Is Patient Pain Free? No Yes Yes sacral -Description Aching -Intensity 10 -Duration (hours) Acute -Pain Behavior Guarding -Pain Aggravating Factors ADL's -Alleviating Factors/Interventions None -Effectiveness of Alleviating Factor/ Minimally Intervention effective WC - Nurse 1 - General Ulcer Measurement Start: 05/23/24 08:57 Freq: Status: Active Protocol: Activity Type Activity Date Activity User E-sign Co-sign Detail Recorded Client Recorded Date Recorded By Document 05/23/24 08:57 RB woun 05/23/24 08:59 RB Document 06/06/24 08:44 DL [id number] 06/06/24 08:55 DL Document 06/13/24 08:40 DL [id number] 06/13/24 08:50 DL 05/23/24 06/06/24 06/13/24 08:57 08:44 08:40 Wound Center Nurse 1 #2 L Heel -Combined with other wound No -Current Size (cm) - Length 2 1.5 2.4 -Current Size (cm) - Width 1.5 2.2 2 -Current Size (cm) - Depth 0.1 0.1 0.1 -Total Square Cm 3.0 3.30 4.8 -Photo Taken Yes Yes -Tunneling No -Undermining/Tunneling No -Circular Undermining No -Exudate Amt Medium Medium -Exudate Type Serosanguineous Serosanguineous -Wound Margin Distinct, Distinct, Outline Outline Attached Attached -Granulation Amt Medium (34-66%) Medium (34-66%) Large (67-100%) -Granulation Quality Surrey Surrey Surrey -Slough/Fibrin Yes -Necrosis Amt Medium (34-66%) Medium (34-66%) Small (1-33%) -Necrotic Tissue Type Adherent Slough Adherent Slough Adherent Slough -Structure Exposed N/A N/A N/A -Texture (Andreea-wound Skin Appearance) Assessed Scarring Scarring -Moisture (Andreea-wound Skin Appearance) Maceration Maceration Maceration -Color (Andreea-wound Skin Appearance) Assessed No Abnormality No Abnormality -Temperature (Andreea-wound Skin No Abnormality No Abnormality No Abnormality Appearance) (Pt Warm) (Pt Warm) (Pt Warm) -Tenderness on Palpation (Andreea-wound No No No Skin Appearance) -Ulcer Cleansing Wound Cleanser Soap and Water Soap and Water -Foul Odor after Cleansing No No -Anesthetic Used 5% Lidocaine 4% Lidocaine 5% Lidocaine Gel Solution Gel #1 Sacral Cluster -Combined with other wound No -Current Size (cm) - Length 7.5 6.2 6.5 -Current Size (cm) - Width 2 2.8 1.8 -Current Size (cm) - Depth 0.5 2.2 2.8 -Total Square Cm 15.0 17.36 11.70 -Photo Taken Yes Yes -Tunneling No -Undermining/Tunneling No -Undermining/Tunneling Starts (O'clock 12 ) -Undermining/Tunneling Ends (O'clock) 3 -Maximum Distance (cm) 2.6 -Maximum Distance #2 (cm) 3 -Circular Undermining No Yes -Exudate Amt Medium Medium Medium -Exudate Type Serosanguineous Serosanguineous Serosanguineous -Wound Margin Distinct, Distinct, Distinct, Outline Outline Outline Attached Attached Attached -Granulation Amt Medium (34-66%) Medium (34-66%) None Present (0 %) -Granulation Quality Surrey Surrey,Red -Slough/Fibrin Yes -Necrosis Amt Medium (34-66%) Medium (34-66%) Large (67-100%) -Necrotic Tissue Type Adherent Slough Adherent Slough Adherent Slough -Structure Exposed N/A N/A N/A -Texture (Andreea-wound Skin Appearance) Assessed Scarring Scarring -Moisture (Andreea-wound Skin Appearance) Maceration Maceration Maceration -Color (Andreea-wound Skin Appearance) Assessed No Abnormality No Abnormality -Temperature (Andreea-wound Skin No Abnormality No Abnormality No Abnormality Appearance) (Pt Warm) (Pt Warm) (Pt Warm) -Tenderness on Palpation (Andreea-wound No No Skin Appearance) -Ulcer Cleansing Wound Cleanser Soap and Water Soap and Water -Foul Odor after Cleansing No No No -Anesthetic Used 5% Lidocaine 5% Lidocaine 5% Lidocaine Gel Gel Gel Left Calf (cm) 38.6 39 Left Ankle (cm) 23.5 24 WC - Nurse 2 - General Ulcer CM Notes Start: 05/23/24 08:57 Freq: Status: Active Protocol: Activity Type Activity Date Activity User E-sign Co-sign Detail Recorded Client Recorded Date Recorded By Document 05/23/24 09:02 DS 1 05/23/24 09:17 DS Edit Result 05/23/24 09:02 DS (1) [id number] 05/23/24 09:27 DS Document 06/06/24 09:00 BMF [id number] 06/06/24 09:12 BMF Document 06/13/24 08:54 BMF [id number] 06/13/24 09:04 BMF (1) #1 Sacral Cluster - Debridement, Muscle/Fascia, ea addt'l => 1 20sq cm or part thereof 05/23/24 06/06/24 06/13/24 09:02 09:00 08:54 Wound Center Nurse 2 #2 L Heel -Time 09:03 09:05 08:59 -Correct Patient Yes Yes Yes -Correct Side, Site, Position Yes Yes Yes -Correct Procedure Yes Yes Yes -Procedure Performed Yes Yes Yes -Type of Procedure Debridement Debridement Debridement -Clinical Debridement Subcutaneous Subcutaneous -Tissue Removed Subcutaneous Dermis Subcutaneous -Post Debridement (cm) - Length 2.0 2.3 2.5 -Post Debridement (cm) - Width 1.8 2.3 2.5 -Post Debridement (cm) - Depth 0.1 0.1 0.1 -Total Square (Post) (cm) 3.60 5.29 6.25 -Area of Debridement (cm) - Length 2.0 2.3 2.5 -Area of Debridement (cm) - Width 1.8 2.3 2.5 -Total Square (Area) (cm) 3.60 5.29 6.25 -Tunneling No No No -Undermining/Tunneling No No No -Circular Undermining No No No -Wound/Ulcer Outcome Not Healed Not Healed Not Healed -Ulcer Cleansing Rinsed/ Rinsed/ Irrigated with Irrigated with Saline Saline -Foul Odor after Cleansing No No -Bioengineered Tissue No No -Bleeding Controlled with Pressure Pressure Pressure -Treatment Response Procedure Procedure Procedure Tolerated Well Tolerated Well Tolerated Well -Offloading Yes -Type of Offloading Other -Other Type of Offloading heel protectors -Debridement - Subq, 1st 20sq cm Yes Yes Yes #1 Sacral Cluster -Time 09:03 09:00 08:55 -Correct Patient Yes Yes Yes -Correct Side, Site, Position Yes Yes Yes -Correct Procedure Yes Yes Yes -Procedure Performed Yes Yes Yes -Type of Procedure Debridement Debridement Debridement -Clinical Debridement Muscle / Fascia Muscle / Fascia Muscle / Fascia -Tissue Removed Muscle,Fascia Muscle Muscle -Post Debridement (cm) - Length 7.0 6.5 6.7 -Post Debridement (cm) - Width 4.0 3.2 3 -Post Debridement (cm) - Depth 1.5 1.9 2.7 -Total Square (Post) (cm) 28.00 20.80 20.1 -Area of Debridement (cm) - Length 7.0 6.5 6.7 -Area of Debridement (cm) - Width 4.0 3.2 3 -Total Square (Area) (cm) 28.00 20.80 20.1 -Tunneling No No No -Undermining/Tunneling No Yes Yes -Undermining/Tunneling Starts (O'clock 1 1 ) -Undermining/Tunneling Ends (O'clock) 3 3 -Maximum Distance (cm) 3.0 2.5 -Undermining/Tunneling Starts #2 (O' 7 clock) -Undermining/Tunneling Ends #2 (O' 11 clock) -Maximum Distance #2 (cm) 2.3 -Circular Undermining No No No -Wound/Ulcer Outcome Not Healed Not Healed Not Healed -Ulcer Cleansing Rinsed/ Rinsed/ Rinsed/ Irrigated with Irrigated with Irrigated with Saline Saline Saline -Foul Odor after Cleansing No No -Bioengineered Tissue No No -Bleeding Controlled with Pressure Pressure Pressure -Treatment Response Procedure Procedure Tolerated Well Tolerated Well -Pressure Reduction Wheelchair cushion, Mattress overlay -Debridement - Muscle / Fascia, 1st Yes Yes Yes 20sq cm -Debridement, Muscle/Fascia, ea addt'l 1 1 20sq cm or part thereof Pain Scale: 0-10 Numeric Is Patient Pain Free? Yes Yes Yes - Nurse 3 - General Ulcer D/C NN Start: 05/23/24 08:57 Freq: Status: Active Protocol: Activity Type Activity Date Activity User E-sign Co-sign Detail Recorded Client Recorded Date Recorded By Document 05/23/24 09:40 DL [email or web address] 05/23/24 09:42 DL Document 06/06/24 09:24 [facility] [id number] 06/06/24 09:25 BM 05/23/24 06/06/24 09:40 09:24 Wound Care Center Nurse 3 #2 L Heel -Ulcer Cleansing Rinsed/ Rinsed/ Irrigated with Irrigated with Saline Saline -Foul Odor after Cleansing No No -Primary Dressing Applied Fibracol Plus Aquacel AG 4x4, 4x4,Mepilex Mepilex Border Border -Aquacel AG 4x4 4 -Fibracol Plus 4x4 1 -Mepilex Border 1 1 #1 Sacral Cluster -Ulcer Cleansing Rinsed/ Rinsed/ Irrigated with Irrigated with Saline Saline -Foul Odor after Cleansing No No -Primary Dressing Applied Aquacel AG 4x4, Aquacel AG 4x4, Mepilex Border Fibracol Plus 4x4,Mepilex Border -Other Dressing fibracol, hydrogel -Aquacel AG 4x4 1 0 -Fibracol Plus 4x4 1 -Mepilex Border 1 1 Treatment Response Procedure Procedure Tolerated Well Tolerated Well Pain Scale: 0-10 Numeric Is Patient Pain Free? Yes Yes - Visit Discharge Discharge Condition Stable Stable Ambulatory Status Walker Wheelchair Transportation Private Auto Private Auto Accompanied by Additional Wound Wound debrided: Left heel pressure ulcer Laterality: Left Wound Grade/Stage: Stage II Type of Debridement: Excisional debridement Anesthesia Used: 5% Lidocaine Gel Depth: in the subcutaneous layer Percentage of wound debrided: 100 Instrument Used: 7mm curette Severity: Fat Layer Exposed Bleeding Controlled with: Compression and gauze
--- NOTE | 2024-06-20 09:48 | WC ---
PHOTO 06/13/24 SACRUM
== END 2024-06-16 23:59 | disposition home or self-care (01) ==
LOC: WC 08:45
PROVIDERS: PCP Family Medicine; Referring Provider Family Medicine; Visit Provider Nurse Practitioner
DX: L89.154 Pressure ulcer of sacral region, stage 4 (principal); L89.622 Pressure ulcer of left heel, stage 2; C95.90 Leukemia, unspecified not having achieved remission; E11.59 Type 2 diabetes mellitus with other circulatory complications; Z74.09 Other reduced mobility; L08.9 Local infection of the skin and subcutaneous tissue, unspecified
CPT/HCPCS: 11042; 11043; 11046

== ENCOUNTER 2024-07-11 08:45 | Outpatient (RCR) | payer MEDICARE, SELFPAY ==
[2024-06-17 00:24] VITALS: BP 121/74; PULSE 69; RESP 18; TEMP 35.8; BMI 31.6
[2024-06-20 08:41] VITALS: BP 118/55; PULSE 71; RESP 20; TEMP 35.7; BMI 31.6
[2024-06-27 08:45] VITALS: BP 114/56; PULSE 71; RESP 18; TEMP 35.7; BMI 31.6
[2024-07-04 09:01] VITALS: BP 109/44; PULSE 66; RESP 18; TEMP 35.9; BMI 31.6
[2024-07-11 08:36] VITALS: BP 99/45; PULSE 72; RESP 16; TEMP 35.9; BMI 31.6
== END 2024-07-16 23:59 | disposition home or self-care (01) ==
LOC: WC 08:45
PROVIDERS: PCP Family Medicine; Referring Provider Family Medicine; Visit Provider Nurse Practitioner
DX: L89.152 Pressure ulcer of sacral region, stage 2 (principal); L89.622 Pressure ulcer of left heel, stage 2; C91.90 Lymphoid leukemia, unspecified not having achieved remission; E11.59 Type 2 diabetes mellitus with other circulatory complications; Z74.09 Other reduced mobility; Z79.82 Long term (current) use of aspirin; Z79.01 Long term (current) use of anticoagulants; Z79.899 Other long term (current) drug therapy
CPT/HCPCS: 11042; 11043; 15275; 73630; 87070; 87075; 87077; 87186; 87205; Q4186

== ENCOUNTER 2024-08-22 13:45 | Outpatient (RCR) | payer MEDICARE, SELFPAY ==
[2024-07-17 00:37] VITALS: BP 121/74; PULSE 69; RESP 18; TEMP 35.8; BMI 31.6
[2024-07-18 09:06] VITALS: BP 104/69; PULSE 71; RESP 18; TEMP 36.3; BMI 31.6
--- NOTE | 2024-07-18 10:32 | RAD_ITS ---
STUDY: X-RAY - SACRUM/COCCYX REASON FOR EXAM: Male, 83 years old. Pressure ulcer stage 4. TECHNIQUE: 4 views of the sacrum and coccyx were obtained. COMPARISON: None. FINDINGS: Normal bilateral sacroiliac joints. Normal visualized sacral ala and fused sacral bodies. There is a 1 cm empty space at the sacrococcygeal junction, with the appearance of the first coccygeal segment missing. Normal lower coccygeal segments. There atherosclerotic calcifications. RAD/Sacrum-Coccyx min 2 Views IMPRESSION: 1 cm empty space at the sacrococcygeal junction, with the appearance of the first coccygeal segment missing. This could be chronic changes from prior bony destruction from osteomyelitis. Correlate clinically. MRI could be performed for further evaluation. Electronically Signed: Victor M Gonzalez MD at 10:41 EDT ,
--- NOTE | 2024-07-18 10:42 | PCM.WC.PN ---
History of Present Illness Date of Service: 07/18/24 Chief Complaint: Follow-up on buttocks right and left heel wounds that have been going on for months. 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 He lays on his chair most of the day. And has developed 2 areas on his buttocks sores that have gotten bigger and they have been trying to close for months. Currently there is been using antibiotic ointment. Also has tried Silvadene creams and other things through his doctor Now he has been referred here to the wound center Progress of Wound: The sacral wound is still open and has positive depth and undermining with some tunneling. Measurements appear to be smaller can touch bone at one of the tunneling so we will get a sacrum coccyx x-ray and check for lesions or necrosis. Patient has finished his antibiotics Subjective Subjective DME for his bed they did not have an order for the mattress so they refused to send it so we are going to order the 2 together again and try to get that going for them he needs an low air mattress for that he will and for his buttocks but mostly for his heel. Objective Data Objective Data So the heel has a pressure area in the center of it discoloration that I am afraid that might open but it still firm to touch we are still using EpiFix is on his heel still has that reddened erythema around the edge he has to be applying pressure because that is what it looks like. The coccyx open wound is healing it is still got tunneling still can touch the bone but it is filling in nicely and the outside measurements are smaller. We will continue the wound VAC to the coccyx area and we will continue using EpiFix to the heel and try to get it offloaded by getting the low air mattress and bed. Again we will look at an x-ray of his coccyx sacrum area to see if there is any bone disease going on. Vital Signs: Vital Signs Temp Pulse Resp BP 97.4 F L 71 18 104/69 07/18/24 09:06 07/18/24 09:06 07/18/24 09:06 07/18/24 09:06 Weight: 220 lb 0.271 oz Body Mass Index (BMI) 31.6 Lab / Micro Data Attestation: I reviewed the patient's lab results. Physical Exam Const oriented x3 General Appearance: cooperative Exam Limitations: no limitations HEENT normocephalic Eyes General Eye: normal appearance of both eyes Resp normal respiratory effort Effort and Inspection: able to speak in complete sentences Auscultation: clear to auscultation bilaterally Cardio regular rate and regular rhythm Palpation: normal PMI Rate: regular rate Rhythm: regular rhythm Back/Spine Cervical Spine: cervical ROM normal Thoracic Spine / Upper Back: normal to inspection Lumbar Spine / Lower Back: normal to inspection Pelvis: buttocks abnormal and other soft tissue findings Open wounds bilateral buttocks Extremity normal to inspection General Extremity: normal exam except as noted Skin Skin Narrative: Open wounds on buttocks clean well marcated Wound Narrative: Stage II Neuro oriented x3 Debridement Note Debridement Note Wound debrided: buttocks sacral stage 4 wounds cluster Laterality: Left Wound Grade/Stage: Stage IV Type of Debridement: Excisional debridement Anesthesia Used: 5% Lidocaine Gel Depth: to muscle Percentage of wound debrided: 100 Instrument Used: 5mm curette and - (Scissors) Tissue Removed: Fat tissue devitalized tissue and fibrin Severity: Fat Layer Exposed Amount of bleeding with debridement: Mild Bleeding Controlled with: Compression and gauze Patient tolerated procedure: Patient tolerated procedure well Post-Debridement Measurements and Additional Note: Post-Debridement Measurements/Treatment - Nurse 1 - General Ulcer Assessment Start: 07/18/24 09:06 Freq: Status: Active Protocol: [email or web address] Activity Type Activity Date Activity User E-sign Co-sign Detail Recorded Client Recorded Date Recorded By Document 07/18/24 09:06 DL [id number] 07/18/24 09:23 DL 07/18/24 09:06 - Today's Visit Information Type of service Follow-up Visit (Physician/PHOTOGRAPHER ASSISTANT ) Arrival Mode Wheelchair Transfer Assistance Manual Transfer Assist (Other) x1 Patient Identification Verified (Name & Yes ) Patient Requires Transmission-Based No Precautions Height and Weight Body Mass Index (BMI) 31.6 BMI Classification Obese Vital Signs Temperature (97.8 F-99.1 F) 97.4 F L Temperature Source Temporal Pulse Rate (60-100) 71 Pulse Location Monitor Respiratory Rate (12-18) 18 Respiratory rate source Observation Blood Pressure (90/60-120/80) 104/69 Blood Pressure Mean (mm Hg) 80 Source Monitor History Since Last Visit- (Skip if this is Patient's initial visit) Have you changed medications since your No last visit? Any new allergies or adverse reactions No Had a fall/change in ADL's that may No increase risk of falls Signs or symptoms of abuse and/or No neglect since last visit Have you been in the hospital since your No last visit? Has dressing in place as prescribed Yes Has compression in place as prescribed N/A Has offloadiing in place as prescribed Yes Experienced any changes in pain level or No management Pain Scale: 0-10 Numeric Is Patient Pain Free? Yes Teaching Assessment Preferences Verbal,Written, Demonstration Barriers to Learning None WC - Nurse 1 - General Ulcer Measurement Start: 07/18/24 09:06 Freq: Status: Active Protocol: Activity Type Activity Date Activity User E-sign Co-sign Detail Recorded Client Recorded Date Recorded By Document 07/18/24 09:06 DL [id number] 07/18/24 09:23 DL 07/18/24 09:06 Wound Center Nurse 1 #2 L Heel -Current Size (cm) - Length 3.8 -Current Size (cm) - Width 5 -Current Size (cm) - Depth 0.1 -Total Square Cm 19.0 -Exudate Amt Medium -Exudate Type Serosanguineous -Wound Margin Distinct, Outline Attached -Granulation Amt Small (1-33%) -Granulation Quality [place] -Necrosis Amt Large (67-100%) -Necrotic Tissue Type Adherent Slough -Structure Exposed N/A -Texture (Andreea-wound Skin Appearance) Scarring -Moisture (Andreea-wound Skin Appearance) Maceration -Color (Andreea-wound Skin Appearance) No Abnormality -Temperature (Andreea-wound Skin No Abnormality Appearance) (Pt Warm) -Tenderness on Palpation (Andreea-wound No Skin Appearance) -Ulcer Cleansing Soap and Water -Foul Odor after Cleansing No -Anesthetic Used 5% Lidocaine Gel #1 Sacral Cluster -Current Size (cm) - Length 4 -Current Size (cm) - Width 2 -Current Size (cm) - Depth 2.9 -Total Square Cm 8 -Undermining/Tunneling Starts (O'clock 7 ) -Undermining/Tunneling Ends (O'clock) 12 -Maximum Distance (cm) 2.9 -Exudate Amt Medium -Exudate Type Serosanguineous -Wound Margin Distinct, Outline Attached -Granulation Amt Large (67-100%) -Granulation Quality Red -Necrosis Amt Small (1-33%) -Necrotic Tissue Type Adherent Slough -Structure Exposed Fat Layer Exposed -Texture (Adnreea-wound Skin Appearance) Scarring -Moisture (Andreea-wound Skin Appearance) Maceration -Color (Andreea-wound Skin Appearance) No Abnormality -Temperature (Andreea-wound Skin No Abnormality Appearance) (Pt Warm) -Tenderness on Palpation (Andreea-wound No Skin Appearance) -Ulcer Cleansing Soap and Water -Foul Odor after Cleansing No -Anesthetic Used 5% Lidocaine Gel WC - Nurse 2 - General Ulcer CM Notes Start: 07/18/24 09:06 Freq: Status: Active Protocol: Activity Type Activity Date Activity User E-sign Co-sign Detail Recorded Client Recorded Date Recorded By Document 07/18/24 09:29 [facility] [id number] 07/18/24 09:47 [facility] 07/18/24 09:29 Wound Center Nurse 2 #2 L Heel -Time 09:29 -Correct Patient Yes -Correct Side, Site, Position Yes -Correct Procedure Yes -Procedure Performed Yes -Type of Procedure Debridement -Clinical Debridement Subcutaneous -Tissue Removed Subcutaneous -Post Debridement (cm) - Length 4.7 -Post Debridement (cm) - Width 4 -Post Debridement (cm) - Depth 0.1 -Total Square (Post) (cm) 18.8 -Area of Debridement (cm) - Length 4.7 -Area of Debridement (cm) - Width 4 -Total Square (Area) (cm) 18.8 -Tunneling No -Undermining/Tunneling No -Circular Undermining No -Wound/Ulcer Outcome Not Healed -Ulcer Cleansing Rinsed/ Irrigated with Saline -Foul Odor after Cleansing No -Bioengineered Tissue Yes -Type of Bioengineered Tissue Epifix Mesh -Expiration Date 01/15/29 -Product Lot Number [id number] -Percent Used 100 -Lot number of Saline Used [id number] -Bleeding Controlled with Pressure -Treatment Response Procedure Tolerated Well -Debridement - Subq, 1st 20sq cm No -Apply Skin Sub - 1st 25 sq cm - Feet 1 -Epifix Mesh (per sq cm) 11 #1 Sacral Cluster -Time 09:30 -Correct Patient Yes -Correct Side, Site, Position Yes -Correct Procedure Yes -Procedure Performed Yes -Type of Procedure Debridement -Clinical Debridement Muscle / Fascia -Tissue Removed Muscle,Fascia -Post Debridement (cm) - Length 4 -Post Debridement (cm) - Width 2 -Post Debridement (cm) - Depth 2.5 -Total Square (Post) (cm) 8 -Area of Debridement (cm) - Length 4 -Area of Debridement (cm) - Width 2 -Total Square (Area) (cm) 8 -Tunneling No -Undermining/Tunneling Yes -Undermining/Tunneling Starts (O'clock 10 ) -Undermining/Tunneling Ends (O'clock) 12 -Maximum Distance (cm) 3.6 -Circular Undermining No -Wound/Ulcer Outcome Not Healed -Ulcer Cleansing Rinsed/ Irrigated with Saline -Foul Odor after Cleansing No -Bioengineered Tissue No -Bleeding Controlled with Pressure -Treatment Response Procedure Tolerated Well -Offloading Yes -Type of Offloading Other -Other Type of Offloading mattress overlay; air mattress ordered. -Pressure Reduction Wheelchair cushion, Mattress overlay, Specialty bed -Debridement - Muscle / Fascia, 1st Yes 20sq cm Pain Scale: 0-10 Numeric Is Patient Pain Free? Yes Additional Wound Wound debrided: Left heel pressure ulcer Laterality: Left Wound Grade/Stage: Stage II Type of Debridement: Excisional debridement Anesthesia Used: 5% Lidocaine Gel Depth: in the subcutaneous layer Percentage of wound debrided: 100 Instrument Used: 5mm curette, Forceps and - (Scissors) Tissue Removed: Macerated devitalized tissue and fibrin Severity: Fat Layer Exposed Bleeding Controlled with: Compression and gauze Patient tolerated procedure: Patient tolerated procedure well Assessment/Plan Assessment/Plan (1) Mobility impaired: CODE(S): Z74.09 - Other reduced mobility (2) Type 2 diabetes mellitus: CODE(S): E11.9 - Type 2 diabetes mellitus without complications QUALIFIERS: Diabetes mellitus mcfp insulin use: without terminal worker use Diabetes mellitus complication status: with circulatory complication Diabetes mellitus complication detail: with other circulatory complications Qualified Code(s): E11.59 - Type 2 diabetes mellitus with other circulatory complications (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 EpiFix #5 was applied to left heel covered with a wound veil Aquacel extra and Steri-Strips. Patient then was covered with a gauze dressing and patient is to offload and wear heel pads when in bed. Patient is to turn from [id number] and follow-up in 1 week patient was instructed not to get wet and may change the dressing down to the Steri-Strips only Will reorder proper bed and low air mattress for them and see if we can get his wheelchair up to the side of the bed he can get in and out easily. (5) Infected open wound: CODE(S): T14.8XXA - Other injury of unspecified body region, initial encounter; L08.9 - Local infection of the skin and subcutaneous tissue, unspecified (6) Ulcer of foot: CODE(S): L97.509 - Non-pressure chronic ulcer of other part of unspecified foot with unspecified severity QUALIFIERS: Laterality: left Non-pressure ulcer stage: limited to breakdown of skin Qualified Code(s): L97.521 - Non-pressure chronic ulcer of other part of left foot limited to breakdown of skin (7) Stage 4 decubitus ulcer: CODE(S): L89.94 - Pressure ulcer of unspecified site, stage 4 QUALIFIERS: Pressure injury location: sacral region Qualified Code(s): L89.154 - Pressure ulcer of sacral region, stage 4 PLAN: Continue the Wound VAC to coccyx area with white foam in the tunnel and black foam in the main base of the wound. Using 150 mmHg compression to the wound VAC. Have the home health care nurse change the wound VAC as needed for compression problems. Otherwise follow-up in 1 week
--- NOTE | 2024-07-23 09:28 | WC ---
Kelsi from Home Health called stating pt wound vac has been leaking for 2 days and is requesting to apply a duoderm or molding ring to hopefully improve seal. I called back and left message suggesting to try a stoma paste.
[2024-07-25 08:38] VITALS: BP 95/43; PULSE 77; RESP 18; TEMP 35.7; BMI 31.6
--- NOTE | 2024-07-25 10:32 | PN.PCM_ITS ---
History of Present Illness Date of Service: 07/25/24 Chief Complaint: Follow-up on buttocks right and left heel wounds that have been going on for months. 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 He lays on his chair most of the day. And has developed 2 areas on his buttocks sores that have gotten bigger and they have been trying to close for months. Currently there is been using antibiotic ointment. Also has tried Silvadene creams and other things through his doctor Now he has been referred here to the wound center Progress of Wound: The sacral wound is still open and has positive depth and undermining with some tunneling. Measurements appear to be smaller can touch bone at one of the tunneling so we will get a sacrum coccyx x-ray and check for lesions or necrosis. Patient has finished his antibiotics. X-rays show inconclusive for osteomyelitis and will need an MRI. The wound itself looks measure smaller and less depth it is healing I mean it is closing up but it will never heal if it is positive for osteo. He is low air mattress and bed are supposed to come this Tuesday. Left heel still looks like a pressure he has a thin layer of skin but it is still macerated I do not know why it is so wet so we have discussed it amongst our product insurance sales representative and os and we decided to have the change the Aquacel extra every day on the top of the wound and the outside dressing but not to touch the rest of it and see if that helps with the maceration and let it heal still has that in her bruising going on that still has not opened. And still has some erythematous skin around the edging but does not have that bulbous dark red that he had before. Subjective Subjective So the now complaining that he might have claustrophobia I told him to go to his primary care doctor and get some benzodiazepines to help relax him because an open MRI is not can give us a good picture. The states he does not use that left heel only to get in and out of the wheelchair which I do not know I feel like he is digging into the bed and turning with it in bed. Objective Data Objective Data Both wounds look better but the heel looks macerated. Scheduling him for an MRI and we will go from there. We will continue the wound VAC at 150 mL of meters mercury he is tolerating it well the wound VAC had to be removed last night because it lost its suction. Vital Signs: Vital Signs Temp Pulse Resp BP 96.2 F L 77 18 95/43 L 07/25/24 08:38 07/25/24 08:38 07/25/24 08:38 07/25/24 08:38 Weight: 220 lb 0.271 oz Body Mass Index (BMI) 31.6 Lab / Micro Data Attestation: I reviewed the patient's lab results. Physical Exam Const oriented x3 General Appearance: cooperative Exam Limitations: no limitations HEENT normocephalic Eyes General Eye: normal appearance of both eyes Resp normal respiratory effort Effort and Inspection: able to speak in complete sentences Auscultation: clear to auscultation bilaterally Cardio regular rate and regular rhythm Palpation: normal PMI Rate: regular rate Rhythm: regular rhythm Back/Spine Cervical Spine: cervical ROM normal Thoracic Spine / Upper Back: normal to inspection Lumbar Spine / Lower Back: normal to inspection Pelvis: buttocks abnormal and other soft tissue findings Open wounds bilateral buttocks Extremity normal to inspection General Extremity: normal exam except as noted Skin Skin Narrative: Open wounds on buttocks clean well marcated Wound Narrative: Stage II Neuro oriented x3 Debridement Note Debridement Note Wound debrided: buttocks sacral stage 4 wounds Laterality: Left Wound Grade/Stage: Stage IV Type of Debridement: Excisional debridement Anesthesia Used: 5% Lidocaine Gel Depth: to muscle Percentage of wound debrided: 100 Instrument Used: 5mm curette and - (Scissors) Tissue Removed: Fat tissue devitalized tissue and fibrin Severity: Fat Layer Exposed Amount of bleeding with debridement: Mild Bleeding Controlled with: Compression and gauze Patient tolerated procedure: Patient tolerated procedure well Post-Debridement Measurements and Additional Note: Post-Debridement Measurements/Treatment - Nurse 1 - General Ulcer Assessment Start: 07/18/24 09:06 Freq: Status: Active Protocol: CHEL Activity Type Activity Date Activity User E-sign Co-sign Detail Recorded Client Recorded Date Recorded By Document 07/18/24 09:06 DL [id number] 07/18/24 09:23 DL Document 07/25/24 08:38 DL [id number] 07/25/24 08:54 DL 07/18/24 07/25/24 09:06 08:38 WC - Today's Visit Information Type of service Follow-up Visit Follow-up Visit (Physician/SURFACER (Physician/SURFACER ) ) Arrival Mode Wheelchair Wheelchair Transfer Assistance Manual Manual Transfer Assist (Other) x1 x1 Patient Identification Verified (Name & Yes Yes ) Patient Requires Transmission-Based No No Precautions Height and Weight Body Mass Index (BMI) 31.6 31.6 BMI Classification Obese Obese Vital Signs Temperature (97.8 F-99.1 F) 97.4 F L 96.2 F L Temperature Source Temporal Temporal Pulse Rate (60-100) 71 77 Pulse Location Monitor Monitor Respiratory Rate (12-18) 18 18 Respiratory rate source Observation Observation Blood Pressure (90/60-120/80) 104/69 95/43 L Blood Pressure Mean (mm Hg) 80 60 Source Monitor Monitor History Since Last Visit- (Skip if this is Patient's initial visit) Have you changed medications since your No No last visit? Any new allergies or adverse reactions No No Had a fall/change in ADL's that may No No increase risk of falls Signs or symptoms of abuse and/or No No neglect since last visit Have you been in the hospital since your No No last visit? Has dressing in place as prescribed Yes Yes Has compression in place as prescribed N/A N/A Has offloadiing in place as prescribed Yes Yes Experienced any changes in pain level or No No management Pain Scale: 0-10 Numeric Is Patient Pain Free? Yes Yes Teaching Assessment Preferences Verbal,Written, Demonstration Barriers to Learning None - Nurse 1 - General Ulcer Measurement Start: 07/18/24 09:06 Freq: Status: Active Protocol: Activity Type Activity Date Activity User E-sign Co-sign Detail Recorded Client Recorded Date Recorded By Document 07/18/24 09:06 DL [id number] 07/18/24 09:23 DL Document 07/25/24 08:38 DL [id number] 07/25/24 08:54 DL 07/18/24 07/25/24 09:06 08:38 Wound Center Nurse 1 #2 L Heel -Current Size (cm) - Length 3.8 4 -Current Size (cm) - Width 5 4.8 -Current Size (cm) - Depth 0.1 0.1 -Total Square Cm 19.0 19.2 -Exudate Amt Medium Large -Exudate Type Serosanguineous Serosanguineous -Wound Margin Distinct, Distinct, Outline Outline Attached Attached -Granulation Amt Small (1-33%) Medium (34-66%) -Granulation Quality Pantego Pantego -Necrosis Amt Large (67-100%) Medium (34-66%) -Necrotic Tissue Type Adherent Slough Adherent Slough -Structure Exposed N/A N/A -Texture (Andreea-wound Skin Appearance) Scarring Scarring -Moisture (Andreea-wound Skin Appearance) Maceration Maceration -Color (Andreea-wound Skin Appearance) No Abnormality No Abnormality -Temperature (Andreea-wound Skin No Abnormality No Abnormality Appearance) (Pt Warm) (Pt Warm) -Tenderness on Palpation (Andreea-wound No Skin Appearance) -Ulcer Cleansing Soap and Water Soap and Water -Foul Odor after Cleansing No No -Anesthetic Used 5% Lidocaine 4% Lidocaine Gel Solution #1 Sacral Cluster -Current Size (cm) - Length 4 3 -Current Size (cm) - Width 2 2.4 -Current Size (cm) - Depth 2.9 2.8 -Total Square Cm 8 7.2 -Undermining/Tunneling Starts (O'clock 7 7 ) -Undermining/Tunneling Ends (O'clock) 12 2 -Maximum Distance (cm) 2.9 3.5 -Exudate Amt Medium Medium -Exudate Type Serosanguineous Serosanguineous -Wound Margin Distinct, Distinct, Outline Outline Attached Attached -Granulation Amt Large (67-100%) Large (67-100%) -Granulation Quality Red Red -Necrosis Amt Small (1-33%) Small (1-33%) -Necrotic Tissue Type Adherent Slough Adherent Slough -Structure Exposed Fat Layer N/A Exposed -Texture (Andreea-wound Skin Appearance) Scarring Scarring -Moisture (Andreea-wound Skin Appearance) Maceration Maceration -Color (Andreea-wound Skin Appearance) No Abnormality No Abnormality -Temperature (Andreea-wound Skin No Abnormality Appearance) (Pt Warm) -Tenderness on Palpation (Andreea-wound No Skin Appearance) -Ulcer Cleansing Soap and Water Soap and Water -Foul Odor after Cleansing No No -Anesthetic Used 5% Lidocaine 5% Lidocaine Gel Gel WC - Nurse 2 - General Ulcer CM Notes Start: 07/18/24 09:06 Freq: Status: Active Protocol: Activity Type Activity Date Activity User E-sign Co-sign Detail Recorded Client Recorded Date Recorded By Document 07/18/24 09:29 [facility] [id number] 07/18/24 09:47 [facility] Document 07/25/24 09:01 [facility] [id number] 07/25/24 09:17 [facility] 07/18/24 07/25/24 09:29 09:01 Wound Center Nurse 2 #2 L Heel -Time 09:01 -Correct Patient Yes Yes -Correct Side, Site, Position Yes Yes -Correct Procedure Yes Yes -Procedure Performed Yes Yes -Type of Procedure Debridement Debridement -Clinical Debridement Subcutaneous Subcutaneous -Tissue Removed Subcutaneous Subcutaneous -Post Debridement (cm) - Length 4.7 4.6 -Post Debridement (cm) - Width 4 5 -Post Debridement (cm) - Depth 0.1 0.1 -Total Square (Post) (cm) 18.8 23.0 -Area of Debridement (cm) - Length 4.7 4.6 -Area of Debridement (cm) - Width 4 5 -Total Square (Area) (cm) 18.8 23.0 -Tunneling No No -Undermining/Tunneling No No -Circular Undermining No No -Wound/Ulcer Outcome Not Healed Not Healed -Ulcer Cleansing Rinsed/ Rinsed/ Irrigated with Irrigated with Saline Saline -Foul Odor after Cleansing No No -Bioengineered Tissue Yes Yes -Type of Bioengineered Tissue Epifix Mesh Epifix Mesh -Expiration Date 01/15/29 01/15/29 -Product Lot Number [id number] -Percent Used 100 100 -Lot number of Saline Used [id number] -Bleeding Controlled with Pressure Pressure -Treatment Response Procedure Procedure Tolerated Well Tolerated Well -Debridement - Subq, 1st 20sq cm No No -Apply Skin Sub - 1st 25 sq cm - Feet 1 1 -Epifix Mesh (per sq cm) 11 11 #1 Sacral Cluster -Time 09:30 09:02 -Correct Patient Yes Yes -Correct Side, Site, Position Yes Yes -Correct Procedure Yes Yes -Procedure Performed Yes Yes -Type of Procedure Debridement Debridement -Clinical Debridement Muscle / Fascia Muscle / Fascia -Tissue Removed Muscle,Fascia Muscle,Fascia -Post Debridement (cm) - Length 4 3.5 -Post Debridement (cm) - Width 2 1.5 -Post Debridement (cm) - Depth 2.5 2.5 -Total Square (Post) (cm) 8 5.25 -Area of Debridement (cm) - Length 4 3.5 -Area of Debridement (cm) - Width 2 1.5 -Total Square (Area) (cm) 8 5.25 -Tunneling No No -Undermining/Tunneling Yes Yes -Undermining/Tunneling Starts (O'clock 10 9 ) -Undermining/Tunneling Ends (O'clock) 12 11 -Maximum Distance (cm) 3.6 3.7 -Circular Undermining No No -Wound/Ulcer Outcome Not Healed Not Healed -Ulcer Cleansing Rinsed/ Rinsed/ Irrigated with Irrigated with Saline Saline -Foul Odor after Cleansing No No -Bioengineered Tissue No No -Bleeding Controlled with Pressure Pressure -Treatment Response Procedure Procedure Tolerated Well Tolerated Well -Offloading Yes -Type of Offloading Other -Other Type of Offloading mattress overlay; air mattress ordered. -Pressure Reduction Wheelchair cushion, Mattress overlay, Specialty bed -Debridement - Muscle / Fascia, 1st Yes Yes 20sq cm Pain Scale: 0-10 Numeric Is Patient Pain Free? Yes Yes WC - Nurse 3 - General Ulcer D/C NN Start: 07/18/24 09:06 Freq: Status: Active Protocol: Activity Type Activity Date Activity User E-sign Co-sign Detail Recorded Client Recorded Date Recorded By Document 07/18/24 11:59 DL [id number] 07/18/24 12:01 DL Document 07/25/24 09:53 DL [id number] 07/25/24 09:55 DL 07/18/24 07/25/24 11:59 09:53 Wound Care Center Nurse 3 #2 L Heel -Foul Odor after Cleansing No No -Primary Dressing Applied Aquacel Extra Aquacel Extra -Other Dressing Epimesh epimesh -Primary Dressing Covered/Secured with Dry Gauze & Dry Gauze & Roll Gauze Roll Gauze, Secured with Tape -Other Covering Tubigrip padding -Aquacel Extra 1 1 #1 Sacral Cluster -Ulcer Cleansing Wound Cleanser Soap and Water -Foul Odor after Cleansing No -Negative Pressure Wound Therapy Continue Continue -Setting (mmHg) 150 150 -Negative Pressure is Continuous Continuous -NPWT Application Charge NPWT & NPWT & Debridement (nc Debridement (nc ) ) Left -Other tubigrip Treatment Response Procedure Procedure Tolerated Well Tolerated Well Pain Scale: 0-10 Numeric Is Patient Pain Free? Yes Yes WC - Visit Discharge Discharge Condition Stable Stable Ambulatory Status Wheelchair Wheelchair Transportation Private Auto Private Auto Facility Type Home Health Home Health Orders Sent Yes Yes Additional Wound Wound debrided: Left heel pressure ulcer Laterality: Left Wound Grade/Stage: Stage II Type of Debridement: Excisional debridement Anesthesia Used: 5% Lidocaine Gel Depth: in the subcutaneous layer Percentage of wound debrided: 100 Instrument Used: 5mm curette, Forceps and - (Scissors) Tissue Removed: Macerated tissue and fibrin Severity: Fat Layer Exposed Bleeding Controlled with: Compression and gauze Patient tolerated procedure: Patient tolerated procedure well Assessment/Plan Assessment/Plan (1) Mobility impaired: CODE(S): Z74.09 - Other reduced mobility (2) Type 2 diabetes mellitus: CODE(S): E11.9 - Type 2 diabetes mellitus without complications QUALIFIERS: Diabetes mellitus retirement insulin use: without ad terminal makeup operator use Diabetes mellitus complication status: with circulatory complication Diabetes mellitus complication detail: with other circulatory complications Qualified Code(s): E11.59 - Type 2 diabetes mellitus with other circulatory complications (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 EpiFix #5 was applied to left heel covered with a wound veil Aquacel extra and Steri-Strips. Every day they need to change the Aquacel extra and the outside dressing. Patient then was covered with a gauze dressing and patient is to offload and wear heel pads when in bed. Patient is to turn from [id number] and follow-up in 1 week patient was instructed not to get wet and may change the dressing down to the Steri-Strips only Hospital bed and low air mattress is to come on Tuesday. (5) Infected open wound: CODE(S): T14.8XXA - Other injury of unspecified body region, initial encounter; L08.9 - Local infection of the skin and subcutaneous tissue, unspecified (6) Ulcer of foot: CODE(S): L97.509 - Non-pressure chronic ulcer of other part of unspecified foot with unspecified severity QUALIFIERS: Laterality: left Non-pressure ulcer stage: limited to breakdown of skin Qualified Code(s): L97.521 - Non-pressure chronic ulcer of other part of left foot limited to breakdown of skin (7) Stage 4 decubitus ulcer: CODE(S): L89.94 - Pressure ulcer of unspecified site, stage 4 QUALIFIERS: Pressure injury location: sacral region Qualified Code(s): L89.154 - Pressure ulcer of sacral region, stage 4 PLAN: Continue the Wound VAC to coccyx area with white foam in the tunnel and black foam in the main base of the wound. Using 150 mmHg compression to the wound VAC. MRI was ordered for the coccyx lumbar and we will have them contacted if we get approval from insurance. Have the home health care nurse change the wound VAC as needed for compression problems. Otherwise follow-up in 1 week
[2024-08-08 14:07] VITALS: RESP 16; BMI 31.6
--- NOTE | 2024-08-08 17:25 | PCM.WC.PN ---
History of Present Illness Date of Service: 08/08/24 Chief Complaint: Follow-up on buttocks right and left heel wounds that have been going on for months. 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 He lays on his chair most of the day. And has developed 2 areas on his buttocks sores that have gotten bigger and they have been trying to close for months. Currently there is been using antibiotic ointment. Also has tried Silvadene creams and other things through his doctor Now he has been referred here to the wound center Progress of Wound: Courtesy visit for Julianne Sellers today. The sacral ulcer with bone exposure. The bone is palpable and there is an area that the bone is movable. There is undermining and tunneling present. He states that he is having a difficult time with keeping a seal with the wound VAC. Will take a wound VAC holiday this week. He is sleeping on the low air loss mattress but he does not like it and it is making his back hurt. He is scheduled for an MRI next week. Left heel ulcer with significant amount of thick, dry non viable tissue present in the center. He is macerated on the edges of the ulcer. He denies having any pressure to this area but it is obvious that there is pressure present. He has been receiving Epifix to this area, but that will need to be put on hold until there is better preparation to the wound bed. Objective Data Objective Data Vital Signs: Vital Signs Temp Pulse Resp BP O2 Del Method 96.2 F L 77 16 95/43 L Room Air 07/25/24 08:38 07/25/24 08:38 08/08/24 14:07 07/25/24 08:38 08/08/24 14:07 Oxygen Delivery Method Room Air Weight: 220 lb 0.271 oz Body Mass Index (BMI) 31.6 Charges/Coding Visit Charges Office Visits / Consults: 29644 OV L3 Est 20min (25 modifier) Procedures Integumentary 111xxx-113xx: 10946 Ginette subq tissue 20 sq cm/< (left heel ulcer) Add On Codes: 41294 Ginette subq tissue add-on (x1 left heel) Multi Select Codes Integumentary Integumentary CPT Codes: 67931 Ginette musc/fascia 20 sq cm/< (sacral ulcer) Physical Exam Const alert and oriented x3 HEENT normocephalic Eyes General Eye: normal appearance of both eyes Lymph Lymphatic: no lymphedema noted Resp normal respiratory effort and clear to auscultation bilaterally Effort and Inspection: able to speak in complete sentences Cardio regular rate and regular rhythm Extremity normal capillary refill Skin Wound Narrative: see progress of wound for details of ulcers Neuro CN's II-XII intact bilaterally Psych affect normal Debridement Note Debridement Note Wound debrided: buttocks ulcer Laterality: Left Wound Grade/Stage: Stage IV Type of Debridement: Excisional debridement Anesthesia Used: 5% Lidocaine Gel Depth: to muscle and to bone Percentage of wound debrided: 100 Instrument Used: 5mm curette Tissue Removed: Non viable tissue and slough into the muscle,bone palpable but not debrided Severity: Fat Layer Exposed Amount of bleeding with debridement: Mild Bleeding Controlled with: Compression and gauze Patient tolerated procedure: Patient tolerated procedure well Post-Debridement Measurements and Additional Note: Post-Debridement Measurements/Treatment - Nurse 1 - General Ulcer Assessment Start: 07/18/24 09:06 Freq: Status: Active Protocol: [email or web address] Activity Type Activity Date Activity User E-sign Co-sign Detail Recorded Client Recorded Date Recorded By Document 07/18/24 09:06 DL [id number] 07/18/24 09:23 DL Document 07/25/24 08:38 DL [id number] 07/25/24 08:54 DL Document 08/08/24 14:07 BM [id number] 08/08/24 14:10 BM 07/18/24 07/25/24 08/08/24 09:06 08:38 14:07 - Today's Visit Information Type of service Follow-up Visit Follow-up Visit Follow-up Visit (Physician/CENTRAL SCHEDULER (Physician/CENTRAL SCHEDULER (Physician/CENTRAL SCHEDULER ) ) ) Arrival Mode Wheelchair Wheelchair Wheelchair Transfer Assistance Manual Manual Other Transfer Assist (Other) x1 x1 2 Accompanied by Patient Identification Verified (Name & Yes Yes Yes ) Patient Requires Transmission-Based No No No Precautions Height and Weight Body Mass Index (BMI) 31.6 31.6 31.6 BMI Classification Obese Obese Obese Vital Signs Temperature (97.8 F-99.1 F) 97.4 F L 96.2 F L Temperature Source Temporal Temporal Pulse Rate (60-100) 71 77 Pulse Location Monitor Monitor Respiratory Rate (12-18) 18 18 16 Respiratory rate source Observation Observation Observation Oxygen Delivery Method Room Air Blood Pressure (90/60-120/80) 104/69 95/43 L Blood Pressure Mean (mm Hg) 80 60 Source Monitor Monitor History Since Last Visit- (Skip if this is Patient's initial visit) Have you changed medications since your No No No last visit? Any new allergies or adverse reactions No No No Had a fall/change in ADL's that may No No No increase risk of falls Signs or symptoms of abuse and/or No No No neglect since last visit Have you been in the hospital since your No No No last visit? Has dressing in place as prescribed Yes Yes Yes Has compression in place as prescribed N/A N/A N/A Has offloadiing in place as prescribed Yes Yes N/A Experienced any changes in pain level or No No No management Left Footwear Diabetic Shoe Right Footwear Diabetic Shoe Pain Scale: 0-10 Numeric Is Patient Pain Free? Yes Yes Yes Teaching Assessment Preferences Verbal,Written, Demonstration Barriers to Learning None WC - Nurse 1 - General Ulcer Measurement Start: 07/18/24 09:06 Freq: Status: Active Protocol: Activity Type Activity Date Activity User E-sign Co-sign Detail Recorded Client Recorded Date Recorded By Document 07/18/24 09:06 DL [id number] 07/18/24 09:23 DL Document 07/25/24 08:38 DL [id number] 07/25/24 08:54 DL Document 08/08/24 14:07 [facility] [id number] 08/08/24 14:10 [facility] 07/18/24 07/25/24 08/08/24 09:06 08:38 14:07 Wound Center Nurse 1 #2 L Heel -Combined with other wound No -Current Size (cm) - Length 3.8 4 4 -Current Size (cm) - Width 5 4.8 4.4 -Current Size (cm) - Depth 0.1 0.1 0.1 -Total Square Cm 19.0 19.2 17.6 -Epithelialization None Present -Tunneling No -Undermining/Tunneling No -Circular Undermining No -Exudate Amt Medium Large Large -Exudate Type Serosanguineous Serosanguineous Serosanguineous -Wound Margin Distinct, Distinct, Distinct, Outline Outline Outline Attached Attached Attached -Granulation Amt Small (1-33%) Medium (34-66%) Small (1-33%) -Granulation Quality Nason Nason Red -Slough/Fibrin Yes -Necrosis Amt Large (67-100%) Medium (34-66%) Large (67-100%) -Necrotic Tissue Type Adherent Slough Adherent Slough Adherent Slough -Structure Exposed N/A N/A -Texture (Andreea-wound Skin Appearance) Scarring Scarring Assessed -Moisture (Andreea-wound Skin Appearance) Maceration Maceration Assessed, Maceration -Color (Andreea-wound Skin Appearance) No Abnormality No Abnormality Assessed, Erythema -Temperature (Andreea-wound Skin No Abnormality No Abnormality No Abnormality Appearance) (Pt Warm) (Pt Warm) (Pt Warm) -Tenderness on Palpation (Andreea-wound No No Skin Appearance) -Ulcer Cleansing Soap and Water Soap and Water Soap and Water -Foul Odor after Cleansing No No No -Anesthetic Used 5% Lidocaine 4% Lidocaine 5% Lidocaine Gel Solution Gel #1 Sacral Cluster -Combined with other wound No -Current Size (cm) - Length 4 3 2.5 -Current Size (cm) - Width 2 2.4 1.4 -Current Size (cm) - Depth 2.9 2.8 2.4 -Total Square Cm 8 7.2 3.50 -Undermining/Tunneling Yes -Undermining/Tunneling Starts (O'clock 7 7 2 ) -Undermining/Tunneling Ends (O'clock) 12 2 3 -Maximum Distance (cm) 2.9 3.5 5.6 -Circular Undermining No -Exudate Amt Medium Medium Medium -Exudate Type Serosanguineous Serosanguineous Serosanguineous -Wound Margin Distinct, Distinct, Distinct, Outline Outline Outline Attached Attached Attached -Granulation Amt Large (67-100%) Large (67-100%) Large (67-100%) -Granulation Quality Red Red Nason -Slough/Fibrin Yes -Necrosis Amt Small (1-33%) Small (1-33%) Small (1-33%) -Necrotic Tissue Type Adherent Slough Adherent Slough Adherent Slough -Structure Exposed Fat Layer N/A Exposed -Texture (Andreea-wound Skin Appearance) Scarring Scarring Assessed -Moisture (Andreea-wound Skin Appearance) Maceration Maceration Assessed, Maceration -Color (Andreea-wound Skin Appearance) No Abnormality No Abnormality Assessed, Erythema -Temperature (Andreea-wound Skin No Abnormality No Abnormality Appearance) (Pt Warm) (Pt Warm) -Tenderness on Palpation (Anrdeea-wound No Yes Skin Appearance) -Ulcer Cleansing Soap and Water Soap and Water Soap and Water -Foul Odor after Cleansing No No No -Anesthetic Used 5% Lidocaine 5% Lidocaine 5% Lidocaine Gel Gel Gel WC - Nurse 2 - General Ulcer CM Notes Start: 07/18/24 09:06 Freq: Status: Active Protocol: Activity Type Activity Date Activity User E-sign Co-sign Detail Recorded Client Recorded Date Recorded By Document 07/18/24 09:29 [facility] [id number] 07/18/24 09:47 [facility] Document 07/25/24 09:01 BM [id number] 07/25/24 09:17 [facility] Document 08/08/24 14:19 GM [id number] 08/08/24 14:44 GM 07/18/24 07/25/24 08/08/24 09:29 09:01 14:19 Wound Center Nurse 2 #2 L Heel -Time 09: 09:01 14:19 -Correct Patient Yes Yes Yes -Correct Side, Site, Position Yes Yes Yes -Correct Procedure Yes Yes Yes -Procedure Performed Yes Yes Yes -Type of Procedure Debridement Debridement Debridement -Clinical Debridement Subcutaneous Subcutaneous Subcutaneous -Tissue Removed Subcutaneous Subcutaneous Subcutaneous -Post Debridement (cm) - Length 4.7 4.6 4.5 -Post Debridement (cm) - Width 4 5 5.4 -Post Debridement (cm) - Depth 0.1 0.1 0.1 -Total Square (Post) (cm) 18.8 23.0 24.30 -Area of Debridement (cm) - Length 4.7 4.6 4.5 -Area of Debridement (cm) - Width 4 5 5.4 -Total Square (Area) (cm) 18.8 23.0 24.30 -Tunneling No No No -Undermining/Tunneling No No No -Circular Undermining No No No -Wound/Ulcer Outcome Not Healed Not Healed Not Healed -Ulcer Cleansing Rinsed/ Rinsed/ Rinsed/ Irrigated with Irrigated with Irrigated with Saline Saline Saline -Foul Odor after Cleansing No No No -Bioengineered Tissue Yes Yes -Type of Bioengineered Tissue Epifix Mesh Epifix Mesh -Expiration Date 01/15/29 01/15/29 -Product Lot Number [id number] -Percent Used 100 100 -Lot number of Saline Used [id number] -Bleeding Controlled with Pressure Pressure Pressure -Treatment Response Procedure Procedure Procedure Tolerated Well Tolerated Well Tolerated Well -Debridement - Subq, 1st 20sq cm No No Yes -Debridement, SubQ, ea addt'l 20sq cm 1 or part thereof -Apply Skin Sub - 1st 25 sq cm - Feet 1 1 -Epifix Mesh (per sq cm) 11 11 #1 Sacral Cluster -Time 09:30 09:02 14:20 -Correct Patient Yes Yes Yes -Correct Side, Site, Position Yes Yes Yes -Correct Procedure Yes Yes Yes -Procedure Performed Yes Yes Yes -Type of Procedure Debridement Debridement Debridement -Clinical Debridement Muscle / Fascia Muscle / Fascia Muscle / Fascia -Tissue Removed Muscle,Fascia Muscle,Fascia Muscle -Post Debridement (cm) - Length 4 3.5 2.5 -Post Debridement (cm) - Width 2 1.5 2.0 -Post Debridement (cm) - Depth 2.5 2.5 1.5 -Total Square (Post) (cm) 8 5.25 5.00 -Area of Debridement (cm) - Length 4 3.5 2.5 -Area of Debridement (cm) - Width 2 1.5 2.0 -Total Square (Area) (cm) 8 5.25 5.00 -Tunneling No No No -Undermining/Tunneling Yes Yes Yes -Undermining/Tunneling Starts (O'clock 10 9 1 ) -Undermining/Tunneling Ends (O'clock) 12 11 2 -Maximum Distance (cm) 3.6 3.7 5.0 -Circular Undermining No No Yes -Wound/Ulcer Outcome Not Healed Not Healed Not Healed -Ulcer Cleansing Rinsed/ Rinsed/ Irrigated with Irrigated with Saline Saline -Foul Odor after Cleansing No No -Bioengineered Tissue No No -Bleeding Controlled with Pressure Pressure -Treatment Response Procedure Procedure Tolerated Well Tolerated Well -Offloading Yes -Type of Offloading Other -Other Type of Offloading mattress overlay; air mattress ordered. -Pressure Reduction Wheelchair cushion, Mattress overlay, Specialty bed -Debridement - Muscle / Fascia, 1st Yes Yes Yes 20sq cm Pain Scale: 0-10 Numeric Is Patient Pain Free? Yes Yes Yes - Nurse 3 - General Ulcer D/C NN Start: 07/18/24 09:06 Freq: Status: Active Protocol: Activity Type Activity Date Activity User E-sign Co-sign Detail Recorded Client Recorded Date Recorded By Document 07/18/24 11:59 DL [id number] 07/18/24 12:01 DL Document 07/25/24 09:53 DL [id number] 07/25/24 09:55 DL Document 08/08/24 15:07 BM [id number] 08/08/24 15:08 [facility] 07/18/24 07/25/24 08/08/24 11:59 09:53 15:07 Wound Care Center Nurse 3 #2 L Heel -Ulcer Cleansing Rinsed/ Irrigated with Saline -Foul Odor after Cleansing No No No -Primary Dressing Applied Aquacel Extra Aquacel Extra -Other Dressing Epimesh epimesh HYDROGEL; HEEL HAT -Primary Dressing Covered/Secured with Dry Gauze & Dry Gauze & Dry Gauze & Roll Gauze Roll Gauze, Roll Gauze, Secured with Secured with Tape Tape -Other Covering Tubigrip padding -Aquacel Extra 1 1 #1 Sacral Cluster -Ulcer Cleansing Wound Cleanser Soap and Water Rinsed/ Irrigated with Saline -Foul Odor after Cleansing No No -Negative Pressure Wound Therapy Continue Continue -Setting (mmHg) 150 150 -Negative Pressure is Continuous Continuous -Other Dressing SALINE MOIST TO DRY DRSG -Primary Dressing Covered/Secured with Secured with Tape -Other Covering ABD -NPWT Application Charge NPWT & NPWT & Debridement (nc Debridement (nc ) ) Left -Other tubigrip Treatment Response Procedure Procedure Procedure Tolerated Well Tolerated Well Tolerated Well Pain Scale: 0-10 Numeric Is Patient Pain Free? Yes Yes Yes WC - Visit Discharge Discharge Condition Stable Stable Stable Ambulatory Status Wheelchair Wheelchair Wheelchair Transportation Private Auto Private Auto Private Auto Accompanied by Facility Type Home Health Home Health Home Health Orders Sent Yes Yes Additional Wound Wound debrided: Left heel pressure ulcer Laterality: Left Wound Grade/Stage: Stage III Type of Debridement: Excisional debridement Anesthesia Used: 5% Lidocaine Gel Depth: in the subcutaneous layer Percentage of wound debrided: 100 Instrument Used: 5mm curette and #15 blade (and pickups) Tissue Removed: Non viable tissue and slough Severity: Fat Layer Exposed Bleeding Controlled with: Compression and gauze Patient tolerated procedure: Patient tolerated procedure well Assessment/Plan Assessment/Plan (1) Pressure ulcer of left heel, stage 3: CODE(S): L89.623 - Pressure ulcer of left heel, stage 3 (2) Stage 4 decubitus ulcer: CODE(S): L89.94 - Pressure ulcer of unspecified site, stage 4 QUALIFIERS: Pressure injury location: sacral region Qualified Code(s): L89.154 - Pressure ulcer of sacral region, stage 4 (3) Mobility impaired: CODE(S): Z74.09 - Other reduced mobility (4) Type 2 diabetes mellitus: CODE(S): E11.9 - Type 2 diabetes mellitus without complications QUALIFIERS: Diabetes mellitus lobsterman insulin use: without lobsterman use Diabetes mellitus complication status: with circulatory complication Diabetes mellitus complication detail: with other circulatory complications Qualified Code(s): E11.59 - Type 2 diabetes mellitus with other circulatory complications PLAN: Plan This was a courtesy visit from Julianne Sellers. Patient is very complicated medical history. He has been receiving Epifix (5 applications this far) to his left heel. Today his left heel has a thick, dry scabbing present that, from what I'm told, is a significant change in appearance. Suspect that the patient has been putting a lot of pressure to this area. Attempted to removed as much of the nonviable tissue as possible with debridement, but was not successful. Made slash vogel into the dry tissue to hopefully allow the Santyl to get under this non viable tissue to make debridement next visit more successful. Wound care for the left heel ulcer, will hold the Epifx and will start Santyl collagenase nickel thickness daily covered with gauze and ABD. Wash the ulcer with soap and water at the time of the dressing change. Stressed that he needs to keep his heel elevated off the bed (he has a padded boot, but that, I believe is too much pressure). Instructed how to lift lower leg, from the knee to the ankle to elevate foot off the bed so there is no pressure at all to the heel. He verbalized understanding. His sacral ulcer has been having a difficult time keeping a seal. Will take a wound VAC holiday for a week and start daily Dakins 0.25% moistened gauze dressing covered with ABD daily. He has some concerns with having burning of the Dakins (because he has experienced this in the past). If he cannot tolerate the Dakins moistened gauze, then he may do saline moistened gauze dressings TWICE daily covered with ABD. Once per day the ulcer and the andreea wound need to be washed with soap and water. Can revisit the wound VAC restarting next week. He has received his low air loss mattress. He finds it uncomfortable because it hurts his back. Stressed the importance of keeping the pressure off both his buttocks and his left heel. MRI was ordered for the coccyx ulcer. It is scheduled for next week. He has home health to assist with dressings and his will change them on the days home health is not there. Follow up one week.
[2024-08-15 14:31] VITALS: BP 145/66; PULSE 73; RESP 16; TEMP 37.2; BMI 31.6
--- NOTE | 2024-08-15 17:03 | PN.PCM_ITS ---
History of Present Illness Date of Service: 08/15/24 Chief Complaint: Follow-up on buttocks right and left heel wounds that have been going on for months. 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 He lays on his chair most of the day. And has developed 2 areas on his buttocks sores that have gotten bigger and they have been trying to close for months. Currently there is been using antibiotic ointment. Also has tried Silvadene creams and other things through his doctor Now he has been referred here to the wound center. Wound culture of left heel ulcer from 08/08/24 positive for MDRO Pseudomonas a eruginosa. Referral to infectious disease for treatment. Progress of Wound: He is scheduled tomorrow for his MRI of his sacral ulcer. The sacral ulcer has bone exposure. The bone is palpable and there is an area that the bone is movable. There is undermining and tunneling present. We took a wound VAC holiday last week. He is sleeping on the low air loss mattress but he does not like it and it is making his back hurt. Left heel ulcer still has thick, dry non viable tissue present in the center. The maceration on the edges of the ulcer have improved. He denies having any pressure to this area but it is obvious that there is pressure present. He is using Santyl to this area. Objective Data Objective Data Vital Signs: Vital Signs Temp Pulse Resp BP O2 Del Method 98.9 F 73 16 145/66 H Room Air 08/15/24 14:31 08/15/24 14:31 08/15/24 14:31 08/15/24 14:31 08/08/24 14:07 Oxygen Delivery Method Room Air Weight: 220 lb 0.271 oz Body Mass Index (BMI) 31.6 Lab / Micro Data Micro: Microbiology 08/08/24 14:30 Wound - Heel, Left Gram Stain - Final 08/08/24 14:30 Wound - Heel, Left Wound Culture - Final Pseudomonas aeruginosa 08/08/24 14:30 Wound - Heel, Left Anaerobic Culture - Final No anaerobic bacteria isolated. Charges/Coding Procedures Integumentary [id number]: 16709 Ginette subq tissue 20 sq cm/< (left heel ulcer) Multi Select Codes Integumentary Integumentary CPT Codes: 09307 Ginette musc/fascia 20 sq cm/< (sacral ulcer) Debridement Note Debridement Note Wound debrided: buttocks ulcer Laterality: Left Wound Grade/Stage: Stage IV Type of Debridement: Excisional debridement Anesthesia Used: 5% Lidocaine Gel Depth: to muscle and to bone Percentage of wound debrided: 100 Instrument Used: 5mm curette Tissue Removed: Non viable tissue and slough into the muscle,bone palpable but not debrided Severity: Fat Layer Exposed Amount of bleeding with debridement: Mild Bleeding Controlled with: Compression and gauze Patient tolerated procedure: Patient tolerated procedure well Post-Debridement Measurements and Additional Note: Post-Debridement Measurements/Treatment - Nurse 1 - General Ulcer Assessment Start: 07/18/24 09:06 Freq: Status: Active Protocol: CHEL Activity Type Activity Date Activity User E-sign Co-sign Detail Recorded Client Recorded Date Recorded By Document 07/18/24 09:06 DL [id number] 07/18/24 09:23 DL Document 07/25/24 08:38 DL [id number] 07/25/24 08:54 DL Document 08/08/24 14:07 BMF [id number] 08/08/24 14:10 BMF Document 08/15/24 14:31 CP [id number] 08/15/24 14:45 CP 07/18/24 07/25/24 08/08/24 09:06 08:38 14:07 - Today's Visit Information Type of service Follow-up Visit Follow-up Visit Follow-up Visit (Physician/CHIEF LIBRARIAN WORK WITH BLIND (Physician/CHIEF LIBRARIAN WORK WITH BLIND (Physician/CHIEF LIBRARIAN WORK WITH BLIND ) ) ) Arrival Mode Wheelchair Wheelchair Wheelchair Transfer Assistance Manual Manual Other Transfer Assist (Other) x1 x1 2 Accompanied by Patient Identification Verified (Name & Yes Yes Yes ) Patient Requires Transmission-Based No No No Precautions Height and Weight Body Mass Index (BMI) 31.6 31.6 31.6 BMI Classification Obese Obese Obese Vital Signs Temperature (97.8 F-99.1 F) 97.4 F L 96.2 F L Temperature Source Temporal Temporal Pulse Rate (60-100) 71 77 Pulse Location Monitor Monitor Respiratory Rate (12-18) 18 18 16 Respiratory rate source Observation Observation Observation Oxygen Delivery Method Room Air Blood Pressure (90/60-120/80) 104/69 95/43 L Blood Pressure Mean (mm Hg) 80 60 Source Monitor Monitor Position Blood Pressure Location History Since Last Visit- (Skip if this is Patient's initial visit) Have you changed medications since your No No No last visit? Any new allergies or adverse reactions No No No Had a fall/change in ADL's that may No No No increase risk of falls Signs or symptoms of abuse and/or No No No neglect since last visit Have you been in the hospital since your No No No last visit? Has dressing in place as prescribed Yes Yes Yes Has compression in place as prescribed N/A N/A N/A Has offloadiing in place as prescribed Yes Yes N/A Experienced any changes in pain level or No No No management Left Footwear Diabetic Shoe Right Footwear Diabetic Shoe Pain Scale: 0-10 Numeric Is Patient Pain Free? Yes Yes Yes Teaching Assessment Preferences Verbal,Written, Demonstration Barriers to Learning None 08/15/24 14:31 WC - Today's Visit Information Type of service Follow-up Visit (Physician/CHIEF LIBRARIAN WORK WITH BLIND ) Arrival Mode Wheelchair Transfer Assistance Manual Transfer Assist (Other) 1 Accompanied by Patient Identification Verified (Name & Yes ) Patient Requires Transmission-Based No Precautions Height and Weight Body Mass Index (BMI) 31.6 BMI Classification Obese Vital Signs Temperature (97.8 F-99.1 F) 98.9 F Temperature Source Temporal Pulse Rate (60-100) 73 Pulse Location Monitor Respiratory Rate (12-18) 16 Respiratory rate source Observation Oxygen Delivery Method Blood Pressure (90/60-120/80) 145/66 H Blood Pressure Mean (mm Hg) 92 Source Monitor Position Sitting Blood Pressure Location Right Arm History Since Last Visit- (Skip if this is Patient's initial visit) Have you changed medications since your No last visit? Any new allergies or adverse reactions No Had a fall/change in ADL's that may No increase risk of falls Signs or symptoms of abuse and/or No neglect since last visit Have you been in the hospital since your No last visit? Has dressing in place as prescribed Yes Has compression in place as prescribed N/A Has offloadiing in place as prescribed N/A Experienced any changes in pain level or No management Left Footwear Right Footwear Pain Scale: 0-10 Numeric Is Patient Pain Free? Yes Teaching Assessment Preferences Barriers to Learning - Nurse 1 - General Ulcer Measurement Start: 07/18/24 09:06 Freq: Status: Active Protocol: Activity Type Activity Date Activity User E-sign Co-sign Detail Recorded Client Recorded Date Recorded By Document 07/18/24 09:06 DL [id number] 07/18/24 09:23 DL Document 07/25/24 08:38 DL [id number] 07/25/24 08:54 DL Document 08/08/24 14:07 [facility] [id number] 08/08/24 14:10 BM Document 08/15/24 14:31 CP [id number] 08/15/24 14:45 CP 07/18/24 07/25/24 08/08/24 09:06 08:38 14:07 Wound Center Nurse 1 4. LEFT BUTTOCK -Current Size (cm) - Length -Current Size (cm) - Width -Current Size (cm) - Depth -Total Square Cm -Photo Taken -Exudate Type -Anesthetic Used -Wound Comment(s) #2 L Heel -Combined with other wound No -Current Size (cm) - Length 3.8 4 4 -Current Size (cm) - Width 5 4.8 4.4 -Current Size (cm) - Depth 0.1 0.1 0.1 -Total Square Cm 19.0 19.2 17.6 -Photo Taken -Epithelialization None Present -Tunneling No -Undermining/Tunneling No -Circular Undermining No -Exudate Amt Medium Large Large -Exudate Type Serosanguineous Serosanguineous Serosanguineous -Wound Margin Distinct, Distinct, Distinct, Outline Outline Outline Attached Attached Attached -Granulation Amt Small (1-33%) Medium (34-66%) Small (1-33%) -Granulation Quality Wellman Wellman Red -Slough/Fibrin Yes -Necrosis Amt Large (67-100%) Medium (34-66%) Large (67-100%) -Necrotic Tissue Type Adherent Slough Adherent Slough Adherent Slough -Structure Exposed N/A N/A -Texture (Kenroy-wound Skin Appearance) Scarring Scarring Assessed -Moisture (Kenroy-wound Skin Appearance) Maceration Maceration Assessed, Maceration -Color (Kenroy-wound Skin Appearance) No Abnormality No Abnormality Assessed, Erythema -Temperature (Kenroy-wound Skin No Abnormality No Abnormality No Abnormality Appearance) (Pt Warm) (Pt Warm) (Pt Warm) -Tenderness on Palpation (Kenroy-wound No No Skin Appearance) -Ulcer Cleansing Soap and Water Soap and Water Soap and Water -Foul Odor after Cleansing No No No -Anesthetic Used 5% Lidocaine 4% Lidocaine 5% Lidocaine Gel Solution Gel #1 Sacral Cluster -Combined with other wound No -Current Size (cm) - Length 4 3 2.5 -Current Size (cm) - Width 2 2.4 1.4 -Current Size (cm) - Depth 2.9 2.8 2.4 -Total Square Cm 8 7.2 3.50 -Photo Taken -Undermining/Tunneling Yes -Undermining/Tunneling Starts (O'clock 7 7 2 ) -Undermining/Tunneling Ends (O'clock) 12 2 3 -Maximum Distance (cm) 2.9 3.5 5.6 -Circular Undermining No -Exudate Amt Medium Medium Medium -Exudate Type Serosanguineous Serosanguineous Serosanguineous -Wound Margin Distinct, Distinct, Distinct, Outline Outline Outline Attached Attached Attached -Granulation Amt Large (67-100%) Large (67-100%) Large (67-100%) -Granulation Quality Red Red Wellman -Slough/Fibrin Yes -Necrosis Amt Small (1-33%) Small (1-33%) Small (1-33%) -Necrotic Tissue Type Adherent Slough Adherent Slough Adherent Slough -Structure Exposed Fat Layer N/A Exposed -Texture (Kenroy-wound Skin Appearance) Scarring Scarring Assessed -Moisture (Kenroy-wound Skin Appearance) Maceration Maceration Assessed, Maceration -Color (Kenroy-wound Skin Appearance) No Abnormality No Abnormality Assessed, Erythema -Temperature (Kenroy-wound Skin No Abnormality No Abnormality Appearance) (Pt Warm) (Pt Warm) -Tenderness on Palpation (Kenroy-wound No Yes Skin Appearance) -Ulcer Cleansing Soap and Water Soap and Water Soap and Water -Foul Odor after Cleansing No No No -Anesthetic Used 5% Lidocaine 5% Lidocaine 5% Lidocaine Gel Gel Gel 08/15/24 14:31 Wound Center Nurse 1 4. LEFT BUTTOCK -Current Size (cm) - Length 2.5 -Current Size (cm) - Width 1.5 -Current Size (cm) - Depth 0.1 -Total Square Cm 3.75 -Photo Taken Yes -Exudate Type Serosanguineous -Anesthetic Used 5% Lidocaine Gel -Wound Comment(s) SKIN TEAR FROM TAPE REMOVAL #2 L Heel -Combined with other wound -Current Size (cm) - Length 5 -Current Size (cm) - Width 4.1 -Current Size (cm) - Depth 0.1 -Total Square Cm 20.5 -Photo Taken Yes -Epithelialization -Tunneling -Undermining/Tunneling -Circular Undermining -Exudate Amt None Present -Exudate Type -Wound Margin -Granulation Amt -Granulation Quality -Slough/Fibrin -Necrosis Amt Large (67-100%) -Necrotic Tissue Type Eschar -Structure Exposed -Texture (Kenroy-wound Skin Appearance) No Abnormality -Moisture (Kenroy-wound Skin Appearance) No Abnormality -Color (Kenroy-wound Skin Appearance) No Abnormality -Temperature (Kenroy-wound Skin No Abnormality Appearance) (Pt Warm) -Tenderness on Palpation (Kenroy-wound No Skin Appearance) -Ulcer Cleansing Rinsed/ Irrigated with Saline -Foul Odor after Cleansing No -Anesthetic Used 5% Lidocaine Gel #1 Sacral Cluster -Combined with other wound -Current Size (cm) - Length 2.8 -Current Size (cm) - Width 1.8 -Current Size (cm) - Depth 2.8 -Total Square Cm 5.04 -Photo Taken Yes -Undermining/Tunneling -Undermining/Tunneling Starts (O'clock ) -Undermining/Tunneling Ends (O'clock) -Maximum Distance (cm) 4 -Circular Undermining Yes -Exudate Amt Small -Exudate Type Serosanguineous -Wound Margin -Granulation Amt -Granulation Quality -Slough/Fibrin -Necrosis Amt -Necrotic Tissue Type -Structure Exposed -Texture (Kenroy-wound Skin Appearance) -Moisture (Kenroy-wound Skin Appearance) -Color (Kenroy-wound Skin Appearance) -Temperature (Kenroy-wound Skin No Abnormality Appearance) (Pt Warm) -Tenderness on Palpation (Kenroy-wound No Skin Appearance) -Ulcer Cleansing Rinsed/ Irrigated with Saline -Foul Odor after Cleansing -Anesthetic Used 5% Lidocaine Gel WC - Nurse 2 - General Ulcer CM Notes Start: 07/18/24 09:06 Freq: Status: Active Protocol: Activity Type Activity Date Activity User E-sign Co-sign Detail Recorded Client Recorded Date Recorded By Document 07/18/24 09:29 [facility] [id number] 07/18/24 09:47 [facility] Document 07/25/24 09:01 [facility] [id number] 07/25/24 09:17 [facility] Document 08/08/24 14:19 [id number] 08/08/24 14:44 Document 08/15/24 14:54 [id number] 08/15/24 15:22 07/18/24 07/25/24 08/08/24 09:29 09:01 14:19 Wound Center Nurse 2 4. LEFT BUTTOCK -Time -Correct Patient -Correct Side, Site, Position -Post Debridement (cm) - Length -Post Debridement (cm) - Width -Post Debridement (cm) - Depth -Total Square (Post) (cm) -Tunneling -Undermining/Tunneling -Circular Undermining -Wound/Ulcer Outcome -Ulcer Cleansing -Foul Odor after Cleansing -Bioengineered Tissue -Bleeding Controlled with -Treatment Response #2 L Heel -Time 09: 09:01 14:19 -Correct Patient Yes Yes Yes -Correct Side, Site, Position Yes Yes Yes -Correct Procedure Yes Yes Yes -Procedure Performed Yes Yes Yes -Type of Procedure Debridement Debridement Debridement -Clinical Debridement Subcutaneous Subcutaneous Subcutaneous -Tissue Removed Subcutaneous Subcutaneous Subcutaneous -Post Debridement (cm) - Length 4.7 4.6 4.5 -Post Debridement (cm) - Width 4 5 5.4 -Post Debridement (cm) - Depth 0.1 0.1 0.1 -Total Square (Post) (cm) 18.8 23.0 24.30 -Area of Debridement (cm) - Length 4.7 4.6 4.5 -Area of Debridement (cm) - Width 4 5 5.4 -Total Square (Area) (cm) 18.8 23.0 24.30 -Tunneling No No No -Undermining/Tunneling No No No -Circular Undermining No No No -Wound/Ulcer Outcome Not Healed Not Healed Not Healed -Ulcer Cleansing Rinsed/ Rinsed/ Rinsed/ Irrigated with Irrigated with Irrigated with Saline Saline Saline -Foul Odor after Cleansing No No No -Bioengineered Tissue Yes Yes -Type of Bioengineered Tissue Epifix Mesh Epifix Mesh -Expiration Date 01/15/29 01/15/29 -Product Lot Number [id number] -Percent Used 100 100 -Lot number of Saline Used [id number] -Bleeding Controlled with Pressure Pressure Pressure -Treatment Response Procedure Procedure Procedure Tolerated Well Tolerated Well Tolerated Well -Debridement - Subq, 1st 20sq cm No No Yes -Debridement, SubQ, ea addt'l 20sq cm 1 or part thereof -Apply Skin Sub - 1st 25 sq cm - Feet 1 1 -Epifix Mesh (per sq cm) 11 11 #1 Sacral Cluster -Time 09:30 09:02 14:20 -Correct Patient Yes Yes Yes -Correct Side, Site, Position Yes Yes Yes -Correct Procedure Yes Yes Yes -Procedure Performed Yes Yes Yes -Type of Procedure Debridement Debridement Debridement -Clinical Debridement Muscle / Fascia Muscle / Fascia Muscle / Fascia -Tissue Removed Muscle,Fascia Muscle,Fascia Muscle -Post Debridement (cm) - Length 4 3.5 2.5 -Post Debridement (cm) - Width 2 1.5 2.0 -Post Debridement (cm) - Depth 2.5 2.5 1.5 -Total Square (Post) (cm) 8 5.25 5.00 -Area of Debridement (cm) - Length 4 3.5 2.5 -Area of Debridement (cm) - Width 2 1.5 2.0 -Total Square (Area) (cm) 8 5.25 5.00 -Tunneling No No No -Tunneling Position (O'clock) -Tunneling Distance (cm) -Undermining/Tunneling Yes Yes Yes -Undermining/Tunneling Starts (O'clock 10 9 1 ) -Undermining/Tunneling Ends (O'clock) 12 11 2 -Maximum Distance (cm) 3.6 3.7 5.0 -Circular Undermining No No Yes -Wound/Ulcer Outcome Not Healed Not Healed Not Healed -Ulcer Cleansing Rinsed/ Rinsed/ Irrigated with Irrigated with Saline Saline -Foul Odor after Cleansing No No -Bioengineered Tissue No No -Bleeding Controlled with Pressure Pressure -Treatment Response Procedure Procedure Tolerated Well Tolerated Well -Offloading Yes -Type of Offloading Other -Other Type of Offloading mattress overlay; air mattress ordered. -Pressure Reduction Wheelchair cushion, Mattress overlay, Specialty bed -Debridement - Muscle / Fascia, 1st Yes Yes Yes 20sq cm Pain Scale: 0-10 Numeric Is Patient Pain Free? Yes Yes Yes 08/15/24 14:54 Wound Center Nurse 2 4. LEFT BUTTOCK -Time 14:55 -Correct Patient Yes -Correct Side, Site, Position Yes -Post Debridement (cm) - Length 2.6 -Post Debridement (cm) - Width 2.5 -Post Debridement (cm) - Depth 0.1 -Total Square (Post) (cm) 6.50 -Tunneling No -Undermining/Tunneling No -Circular Undermining No -Wound/Ulcer Outcome Not Healed -Ulcer Cleansing Rinsed/ Irrigated with Saline -Foul Odor after Cleansing No -Bioengineered Tissue No -Bleeding Controlled with Pressure,Silver Nitrate -Treatment Response Procedure Tolerated Well #2 L Heel -Time 15:14 -Correct Patient Yes -Correct Side, Site, Position Yes -Correct Procedure Yes -Procedure Performed Yes -Type of Procedure Debridement -Clinical Debridement Subcutaneous -Tissue Removed Subcutaneous -Post Debridement (cm) - Length 4.0 -Post Debridement (cm) - Width 5.0 -Post Debridement (cm) - Depth 0.1 -Total Square (Post) (cm) 20.00 -Area of Debridement (cm) - Length 4.0 -Area of Debridement (cm) - Width 5.0 -Total Square (Area) (cm) 20.00 -Tunneling No -Undermining/Tunneling No -Circular Undermining No -Wound/Ulcer Outcome Not Healed -Ulcer Cleansing Rinsed/ Irrigated with Saline -Foul Odor after Cleansing No -Bioengineered Tissue No -Type of Bioengineered Tissue -Expiration Date -Product Lot Number -Percent Used -Lot number of Saline Used -Bleeding Controlled with Pressure -Treatment Response Procedure Tolerated Well -Debridement - Subq, 1st 20sq cm Yes -Debridement, SubQ, ea addt'l 20sq cm or part thereof -Apply Skin Sub - 1st 25 sq cm - Feet -Epifix Mesh (per sq cm) #1 Sacral Cluster -Time 14:57 -Correct Patient Yes -Correct Side, Site, Position Yes -Correct Procedure Yes -Procedure Performed Yes -Type of Procedure Debridement -Clinical Debridement Muscle / Fascia -Tissue Removed Muscle -Post Debridement (cm) - Length 3.0 -Post Debridement (cm) - Width 2.5 -Post Debridement (cm) - Depth 3.5 -Total Square (Post) (cm) 7.50 -Area of Debridement (cm) - Length 3.0 -Area of Debridement (cm) - Width 2.5 -Total Square (Area) (cm) 7.50 -Tunneling Yes -Tunneling Position (O'clock) 11 -Tunneling Distance (cm) 3 -Undermining/Tunneling No -Undermining/Tunneling Starts (O'clock ) -Undermining/Tunneling Ends (O'clock) -Maximum Distance (cm) -Circular Undermining Yes -Wound/Ulcer Outcome Not Healed -Ulcer Cleansing Rinsed/ Irrigated with Saline -Foul Odor after Cleansing No -Bioengineered Tissue No -Bleeding Controlled with Pressure -Treatment Response Procedure Tolerated Well -Offloading -Type of Offloading -Other Type of Offloading -Pressure Reduction -Debridement - Muscle / Fascia, 1st Yes 20sq cm Pain Scale: 0-10 Numeric Is Patient Pain Free? Yes WC - Nurse 3 - General Ulcer D/C NN Start: 07/18/24 09:06 Freq: Status: Active Protocol: Activity Type Activity Date Activity User E-sign Co-sign Detail Recorded Client Recorded Date Recorded By Document 07/18/24 11:59 DL [id number] 07/18/24 12:01 DL Document 07/25/24 09:53 DL [id number] 07/25/24 09:55 DL Document 08/08/24 15:07 BMF [id number] 08/08/24 15:08 BMF Document 08/15/24 15:50 CP [id number] 08/15/24 15:51 CP 07/18/24 07/25/24 08/08/24 11:59 09:53 15:07 Wound Care Center Nurse 3 4. LEFT BUTTOCK -Ulcer Cleansing -Primary Dressing Applied -Other Dressing -Mepilex Border #2 L Heel -Ulcer Cleansing Rinsed/ Irrigated with Saline -Foul Odor after Cleansing No No No -Primary Dressing Applied Aquacel Extra Aquacel Extra -Other Dressing Epimesh epimesh HYDROGEL; HEEL HAT -Primary Dressing Covered/Secured with Dry Gauze & Dry Gauze & Dry Gauze & Roll Gauze Roll Gauze, Roll Gauze, Secured with Secured with Tape Tape -Other Covering Tubigrip padding -Aquacel Extra 1 1 #1 Sacral Cluster -Ulcer Cleansing Wound Cleanser Soap and Water Rinsed/ Irrigated with Saline -Foul Odor after Cleansing No No -Negative Pressure Wound Therapy Continue Continue -Setting (mmHg) 150 150 -Negative Pressure is Continuous Continuous -Primary Dressing Applied -Other Dressing SALINE MOIST TO DRY DRSG -Primary Dressing Covered/Secured with Secured with Tape -Other Covering ABD -NPWT Application Charge NPWT & NPWT & Debridement (nc Debridement (nc ) ) -Mepilex Border Left -Other tubigrip Treatment Response Procedure Procedure Procedure Tolerated Well Tolerated Well Tolerated Well Pain Scale: 0-10 Numeric Is Patient Pain Free? Yes Yes Yes WC - Visit Discharge Discharge Condition Stable Stable Stable Ambulatory Status Wheelchair Wheelchair Wheelchair Transportation Private Auto Private Auto Private Auto Accompanied by Clinical Summary of Care Provided Facility Type Home Health Home Health Home Health Orders Sent Yes Yes 08/15/24 15:50 Wound Care Center Nurse 3 4. LEFT BUTTOCK -Ulcer Cleansing Rinsed/ Irrigated with Saline -Primary Dressing Applied Mepilex Border -Other Dressing DAKINS GAUZE -Mepilex Border 1 #2 L Heel -Ulcer Cleansing Rinsed/ Irrigated with Saline -Foul Odor after Cleansing -Primary Dressing Applied C Hydrogel ($) -Other Dressing -Primary Dressing Covered/Secured with Dry Gauze & Roll Gauze, Secured with Tape -Other Covering -Aquacel Extra #1 Sacral Cluster -Ulcer Cleansing -Foul Odor after Cleansing -Negative Pressure Wound Therapy -Setting (mmHg) -Negative Pressure is -Primary Dressing Applied Mepilex Border -Other Dressing DAKINS GAUZE -Primary Dressing Covered/Secured with -Other Covering -NPWT Application Charge -Mepilex Border 1 Left -Other Treatment Response Pain Scale: 0-10 Numeric Is Patient Pain Free? Yes WC - Visit Discharge Discharge Condition Stable Ambulatory Status Wheelchair Transportation Private Auto Accompanied by Clinical Summary of Care Provided Yes Facility Type Home Health Orders Sent Yes Additional Wound Wound debrided: Left heel pressure ulcer Laterality: Left Wound Grade/Stage: Stage III Type of Debridement: Excisional debridement Anesthesia Used: 5% Lidocaine Gel Depth: in the subcutaneous layer Percentage of wound debrided: 100 Instrument Used: 5mm curette and #15 blade (and pickups) Tissue Removed: Non viable tissue and slough Severity: Fat Layer Exposed Bleeding Controlled with: Compression and gauze Patient tolerated procedure: Patient tolerated procedure well Assessment/Plan Assessment/Plan (1) Pressure ulcer of left heel, stage 3: CODE(S): L89.623 - Pressure ulcer of left heel, stage 3 (2) Stage 4 decubitus ulcer: CODE(S): L89.94 - Pressure ulcer of unspecified site, stage 4 QUALIFIERS: Pressure injury location: sacral region Qualified Code(s): L89.154 - Pressure ulcer of sacral region, stage 4 (3) Mobility impaired: CODE(S): Z74.09 - Other reduced mobility (4) Type 2 diabetes mellitus: CODE(S): E11.9 - Type 2 diabetes mellitus without complications QUALIFIERS: Diabetes mellitus adjunct faculty for medical terminology insulin use: without fci use Diabetes mellitus complication status: with circulatory complication Diabetes mellitus complication detail: with other circulatory complications Qualified Code(s): E11.59 - Type 2 diabetes mellitus with other circulatory complications (5) Sacral decubitus ulcer, stage IV: CODE(S): L89.154 - Pressure ulcer of sacral region, stage 4 (6) 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 Patient is very complicated medical history. He had been receiving Epifix (5 applications this far) to his left heel. Last week his left heel developed a thick, dry scabbing present that, that was a significant change in appearance. Suspect that the patient has been putting a lot of pressure to this area. Attempted to removed as much of the nonviable tissue as possible with debridement, but was not successful. Made slash vogel into the dry tissue to hopefully allow the Santyl to get under this non viable tissue to make debridement next visit more successful. Wound care for the left heel ulcer, Santyl collagenase nickel thickness daily covered with saline moistened gauze and ABD. Wash the ulcer with soap and water at the time of the dressing change. Stressed that he needs to keep his heel elevated off the bed (he has a padded boot, but that, I believe is too much pressure). Instructed how to lift lower leg, from the knee to the ankle to elevate foot off the bed so there is no pressure at all to the heel. He verbalized understanding. His sacral ulcer has been having a difficult time keeping a seal. Took a wound VAC holiday last week and will take one until next week after his MRI is completed. They will apply daily Dakins 0.25% moistened gauze dressing covered with ABD daily. At the time of the dressing change, the ulcer and the kenroy wound need to be washed with soap and water. Can revisit the wound VAC restarting next week. He has received his low air loss mattress. He finds it uncomfortable because it hurts his back. Stressed the importance of keeping the pressure off both his buttocks and his left heel. MRI was ordered for the coccyx ulcer. It is scheduled for tomorrow. Wound culture of left heel ulcer from 08/08/24 positive for MDRO Pseudomonas aeruginosa. Referral to infectious disease for treatment. He has home health to assist with dressings and his will change them on the days home health is not there. Follow up one week.
--- NOTE | 2024-08-16 10:12 | WC ---
PHOTO 08/15/24 SACRAL
--- NOTE | 2024-08-16 10:13 | WC ---
PHOTO 08/15/24 LEFT BUTTOCK
--- NOTE | 2024-08-16 13:27 | MRI_ITS ---
ACR Level 3 findings have been noted. An addendum which confirms receipt of the report will follow. EXAM: MR PELVIS WITHOUT AND WITH INTRAVENOUS CONTRAST CLINICAL INDICATION: STAGE 4 DECUBITUS ULCER SACRUM TECHNIQUE: Multiplanar and multisequence MR images of the pelvis without and with intravenous contrast. CONTRAST: IV 20 cc clariscan COMPARISON: No relevant prior studies available. FINDINGS: Deep sacral decubitus ulceration extending to the coccyx/lower sacrum. There is bone marrow edema indicating osteomyelitis of the coccyx and lower sacral segment. The inferior portion of the coccyx appears disconnected potentially with bone destruction contributing to the apparent soft tissue gap. Question packing material within the cavity which demonstrates low signal on T1-weighted imaging and also low signal on T2-weighted imaging which would not be typical for an abscess. This measures 2.9 x 1.5 cm and is located immediately posterior to the most caudal segments of the coccyx. Moderate to severe degenerative changes at L3-4 and L4-5. No convincing evidence for soft tissue abscess. MRI/Pelvis W/WO Contrast IMPRESSION: Sacral decubitus ulcer with sacrococcygeal osteomyelitis. Electronically Signed: Andrey Carrion MD at 22:25 EDT ,
[2024-08-16 14:12] LABS: CREATININE FINGERSTICK < 1.0 mg/dL (0.70-1.30); EGFR FINGERSTICK > 60.0000 mL/min (>60)
--- NOTE | 2024-08-20 11:37 | WC ---
PHOTO 08/15/24 SACRAL
--- NOTE | 2024-08-20 11:39 | WC ---
PHOTO 08/15/24 LEFT BUTTOCKS
[2024-08-22 13:50] VITALS: BP 112/56; PULSE 79; RESP 19; TEMP 36.3; BMI 31.6
--- NOTE | 2024-08-22 16:58 | PCM.WC.PN ---
History of Present Illness Date of Service: 08/22/24 Chief Complaint: Follow-up on buttocks right and left heel wounds that have been going on for months. 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 He lays on his chair most of the day. And has developed 2 areas on his buttocks sores that have gotten bigger and they have been trying to close for months. Currently there is been using antibiotic ointment. Also has tried Silvadene creams and other things through his doctor Now he has been referred here to the wound center. Wound culture of left heel ulcer from 08/08/24 positive for MDRO Pseudomonas aeruginosa. Referral to infectious disease for treatment. MRI of Pelvis 08/16/24 - Sacral decubitus ulcer with sacrococcygeal osteomyelitis. Progress of Wound: The sacral ulcer has bone exposure. The bone is exposed and palpable. There is undermining and tunneling present. We took a wound VAC holiday for past 2 weeks. Will discontinue the wound VAC at this time. He is sleeping on the low air loss mattress but he does not like it and it is making his back hurt. Left heel ulcer is starting to show minor improvement with softening of the non viable tissue with the use of Santyl. He states he has been off loading this area. MRI results reviewed. Objective Data Objective Data Vital Signs: Vital Signs Temp Pulse Resp BP O2 Del Method 97.4 F L 79 19 H 112/56 L Room Air 08/22/24 13:50 08/22/24 13:50 08/22/24 13:50 08/22/24 13:50 08/08/24 14:07 Oxygen Delivery Method Room Air Weight: 220 lb 0.271 oz Body Mass Index (BMI) 31.6 Lab / Micro Data Micro: Microbiology 08/08/24 14:30 Wound - Heel, Left Gram Stain - Final 08/08/24 14:30 Wound - Heel, Left Wound Culture - Final Pseudomonas aeruginosa 08/08/24 14:30 Wound - Heel, Left Anaerobic Culture - Final No anaerobic bacteria isolated. Charges/Coding Procedures Integumentary [id number]: 08303 Ginette musc/fascia 20 sq cm/< (sacral ulcer) Multi Select Codes Integumentary Integumentary CPT Codes: 76450 Ginette subq tissue 20 sq cm/< (left heel and skin tear) Debridement Note Debridement Note Wound debrided: buttocks ulcer Laterality: Left Wound Grade/Stage: Stage IV Type of Debridement: Excisional debridement Anesthesia Used: 5% Lidocaine Gel Depth: Down to and including healthy tissue, in the subcutaneous layer, to muscle and to bone Percentage of wound debrided: 100 Instrument Used: 7mm curette Tissue Removed: Non viable tissue and slough into the muscle,bone palpable but not debrided Severity: Fat Layer Exposed Amount of bleeding with debridement: Mild Bleeding Controlled with: Compression and gauze Patient tolerated procedure: Patient tolerated procedure well Post-Debridement Measurements and Additional Note: Post-Debridement Measurements/Treatment - Nurse 1 - General Ulcer Assessment Start: 07/18/24 09:06 Freq: Status: Active Protocol: CHEL Activity Type Activity Date Activity User E-sign Co-sign Detail Recorded Client Recorded Date Recorded By Document 07/18/24 09:06 DL [id number] 07/18/24 09:23 DL Document 07/25/24 08:38 DL [id number] 07/25/24 08:54 DL Document 08/08/24 14:07 BMF [id number] 08/08/24 14:10 BMF Document 08/15/24 14:31 CP [id number] 08/15/24 14:45 CP Document 08/22/24 13:50 DL [id number] 08/22/24 14:03 DL 07/18/24 07/25/24 08/08/24 09:06 08:38 14:07 - Today's Visit Information Type of service Follow-up Visit Follow-up Visit Follow-up Visit (Physician/ASSISTANT PROSECUTING ATTORNEY (Physician/ASSISTANT PROSECUTING ATTORNEY (Physician/ASSISTANT PROSECUTING ATTORNEY ) ) ) Arrival Mode Wheelchair Wheelchair Wheelchair Transfer Assistance Manual Manual Other Transfer Assist (Other) x1 x1 2 Accompanied by Patient Identification Verified (Name & Yes Yes Yes ) Patient Requires Transmission-Based No No No Precautions Height and Weight Body Mass Index (BMI) 31.6 31.6 31.6 BMI Classification Obese Obese Obese Vital Signs Temperature (97.8 F-99.1 F) 97.4 F L 96.2 F L Temperature Source Temporal Temporal Pulse Rate (60-100) 71 77 Pulse Location Monitor Monitor Respiratory Rate (12-18) 18 18 16 Respiratory rate source Observation Observation Observation Oxygen Delivery Method Room Air Blood Pressure (90/60-120/80) 104/69 95/43 L Blood Pressure Mean (mm Hg) 80 60 Source Monitor Monitor Position Blood Pressure Location History Since Last Visit- (Skip if this is Patient's initial visit) Have you changed medications since your No No No last visit? Any new allergies or adverse reactions No No No Had a fall/change in ADL's that may No No No increase risk of falls Signs or symptoms of abuse and/or No No No neglect since last visit Have you been in the hospital since your No No No last visit? Has dressing in place as prescribed Yes Yes Yes Has compression in place as prescribed N/A N/A N/A Has offloadiing in place as prescribed Yes Yes N/A Experienced any changes in pain level or No No No management Left Footwear Diabetic Shoe Right Footwear Diabetic Shoe Pain Scale: 0-10 Numeric Is Patient Pain Free? Yes Yes Yes Teaching Assessment Preferences Verbal,Written, Demonstration Barriers to Learning None 08/15/24 08/22/24 14:31 13:50 WC - Today's Visit Information Type of service Follow-up Visit Follow-up Visit (Physician/ASSISTANT PROSECUTING ATTORNEY (Physician/ASSISTANT PROSECUTING ATTORNEY ) ) Arrival Mode Wheelchair Wheelchair Transfer Assistance Manual Manual Transfer Assist (Other) 1 X1 Accompanied by Patient Identification Verified (Name & Yes Yes ) Patient Requires Transmission-Based No No Precautions Height and Weight Body Mass Index (BMI) 31.6 31.6 BMI Classification Obese Obese Vital Signs Temperature (97.8 F-99.1 F) 98.9 F 97.4 F L Temperature Source Temporal Temporal Pulse Rate (60-100) 73 79 Pulse Location Monitor Monitor Respiratory Rate (12-18) 16 19 H Respiratory rate source Observation Observation Oxygen Delivery Method Blood Pressure (90/60-120/80) 145/66 H 112/56 L Blood Pressure Mean (mm Hg) 92 74 Source Monitor Monitor Position Sitting Blood Pressure Location Right Arm History Since Last Visit- (Skip if this is Patient's initial visit) Have you changed medications since your No No last visit? Any new allergies or adverse reactions No No Had a fall/change in ADL's that may No No increase risk of falls Signs or symptoms of abuse and/or No No neglect since last visit Have you been in the hospital since your No No last visit? Has dressing in place as prescribed Yes Yes Has compression in place as prescribed N/A N/A Has offloadiing in place as prescribed N/A Yes Experienced any changes in pain level or No No management Left Footwear Right Footwear Pain Scale: 0-10 Numeric Is Patient Pain Free? Yes Yes Teaching Assessment Preferences Barriers to Learning WC - Nurse 1 - General Ulcer Measurement Start: 07/18/24 09:06 Freq: Status: Active Protocol: Activity Type Activity Date Activity User E-sign Co-sign Detail Recorded Client Recorded Date Recorded By Document 07/18/24 09:06 DL [id number] 07/18/24 09:23 DL Document 07/25/24 08:38 DL [id number] 07/25/24 08:54 DL Document 08/08/24 14:07 BMF [id number] 08/08/24 14:10 BMF Document 08/15/24 14:31 CP [id number] 08/15/24 14:45 CP Document 08/22/24 13:50 DL [id number] 08/22/24 14:03 DL 07/18/24 07/25/24 08/08/24 09:06 08:38 14:07 Wound Center Nurse 1 4. LEFT BUTTOCK -Current Size (cm) - Length -Current Size (cm) - Width -Current Size (cm) - Depth -Total Square Cm -Photo Taken -Exudate Amt -Exudate Type -Wound Margin -Granulation Amt -Granulation Quality -Necrosis Amt -Structure Exposed -Texture ([place]-wound Skin Appearance) -Moisture ([place]-wound Skin Appearance) -Color ([place]-wound Skin Appearance) -Temperature ([place]-wound Skin Appearance) -Ulcer Cleansing -Foul Odor after Cleansing -Anesthetic Used -Wound Comment(s) #2 L Heel -Combined with other wound No -Current Size (cm) - Length 3.8 4 4 -Current Size (cm) - Width 5 4.8 4.4 -Current Size (cm) - Depth 0.1 0.1 0.1 -Total Square Cm 19.0 19.2 17.6 -Photo Taken -Epithelialization None Present -Tunneling No -Undermining/Tunneling No -Circular Undermining No -Exudate Amt Medium Large Large -Exudate Type Serosanguineous Serosanguineous Serosanguineous -Wound Margin Distinct, Distinct, Distinct, Outline Outline Outline Attached Attached Attached -Granulation Amt Small (1-33%) Medium (34-66%) Small (1-33%) -Granulation Quality [place] Red -Slough/Fibrin Yes -Necrosis Amt Large (67-100%) Medium (34-66%) Large (67-100%) -Necrotic Tissue Type Adherent Slough Adherent Slough Adherent Slough -Structure Exposed N/A N/A -Texture ([place]-wound Skin Appearance) Scarring Scarring Assessed -Moisture ([place]-wound Skin Appearance) Maceration Maceration Assessed, Maceration -Color ([place]-wound Skin Appearance) No Abnormality No Abnormality Assessed, Erythema -Temperature ([place]-wound Skin No Abnormality No Abnormality No Abnormality Appearance) (Pt Warm) (Pt Warm) (Pt Warm) -Tenderness on Palpation ([place]-wound No No Skin Appearance) -Ulcer Cleansing Soap and Water Soap and Water Soap and Water -Foul Odor after Cleansing No No No -Anesthetic Used 5% Lidocaine 4% Lidocaine 5% Lidocaine Gel Solution Gel #1 Sacral Cluster -Combined with other wound No -Current Size (cm) - Length 4 3 2.5 -Current Size (cm) - Width 2 2.4 1.4 -Current Size (cm) - Depth 2.9 2.8 2.4 -Total Square Cm 8 7.2 3.50 -Photo Taken -Undermining/Tunneling Yes -Undermining/Tunneling Starts (O'clock 7 7 2 ) -Undermining/Tunneling Ends (O'clock) 12 2 3 -Maximum Distance (cm) 2.9 3.5 5.6 -Maximum Distance #2 (cm) -Circular Undermining No -Exudate Amt Medium Medium Medium -Exudate Type Serosanguineous Serosanguineous Serosanguineous -Wound Margin Distinct, Distinct, Distinct, Outline Outline Outline Attached Attached Attached -Granulation Amt Large (67-100%) Large (67-100%) Large (67-100%) -Granulation Quality Red Red [place] -Slough/Fibrin Yes -Necrosis Amt Small (1-33%) Small (1-33%) Small (1-33%) -Necrotic Tissue Type Adherent Slough Adherent Slough Adherent Slough -Structure Exposed Fat Layer N/A Exposed -Texture ([place]-wound Skin Appearance) Scarring Scarring Assessed -Moisture ([place]-wound Skin Appearance) Maceration Maceration Assessed, Maceration -Color ([place]-wound Skin Appearance) No Abnormality No Abnormality Assessed, Erythema -Temperature ([place]-wound Skin No Abnormality No Abnormality Appearance) (Pt Warm) (Pt Warm) -Tenderness on Palpation ([place]-wound No Yes Skin Appearance) -Ulcer Cleansing Soap and Water Soap and Water Soap and Water -Foul Odor after Cleansing No No No -Anesthetic Used 5% Lidocaine 5% Lidocaine 5% Lidocaine Gel Gel Gel Left Calf (cm) Left Ankle (cm) 08/15/24 08/22/24 14:31 13:50 Wound Center Nurse 1 4. LEFT BUTTOCK -Current Size (cm) - Length 2.5 3.5 -Current Size (cm) - Width 1.5 2.2 -Current Size (cm) - Depth 0.1 0.1 -Total Square Cm 3.75 7.70 -Photo Taken Yes -Exudate Amt Small -Exudate Type Serosanguineous -Wound Margin Distinct, Outline Attached -Granulation Amt Large (67-100%) -Granulation Quality [place],Red -Necrosis Amt None Present (0 %) -Structure Exposed N/A -Texture ([place]-wound Skin Appearance) Scarring -Moisture ([place]-wound Skin Appearance) No Abnormality -Color ([place]-wound Skin Appearance) No Abnormality -Temperature ([place]-wound Skin No Abnormality Appearance) (Pt Warm) -Ulcer Cleansing Soap and Water -Foul Odor after Cleansing No -Anesthetic Used 5% Lidocaine 5% Lidocaine Gel Gel -Wound Comment(s) SKIN TEAR FROM TAPE REMOVAL #2 L Heel -Combined with other wound -Current Size (cm) - Length 5 3.8 -Current Size (cm) - Width 4.1 4.8 -Current Size (cm) - Depth 0.1 0.1 -Total Square Cm 20.5 18.24 -Photo Taken Yes -Epithelialization -Tunneling -Undermining/Tunneling -Circular Undermining -Exudate Amt None Present Medium -Exudate Type Serosanguineous -Wound Margin Distinct, Outline Attached -Granulation Amt Small (1-33%) -Granulation Quality [place] -Slough/Fibrin -Necrosis Amt Large (67-100%) Large (67-100%) -Necrotic Tissue Type Eschar Adherent Slough -Structure Exposed -Texture ([place]-wound Skin Appearance) No Abnormality Scarring -Moisture ([place]-wound Skin Appearance) No Abnormality Maceration -Color ([place]-wound Skin Appearance) No Abnormality No Abnormality -Temperature ([place]-wound Skin No Abnormality No Abnormality Appearance) (Pt Warm) (Pt Warm) -Tenderness on Palpation ([place]-wound No Skin Appearance) -Ulcer Cleansing Rinsed/ Soap and Water Irrigated with Saline -Foul Odor after Cleansing No No -Anesthetic Used 5% Lidocaine 5% Lidocaine Gel Gel #1 Sacral Cluster -Combined with other wound -Current Size (cm) - Length 2.8 3.8 -Current Size (cm) - Width 1.8 1.8 -Current Size (cm) - Depth 2.8 2.1 -Total Square Cm 5.04 6.84 -Photo Taken Yes -Undermining/Tunneling -Undermining/Tunneling Starts (O'clock ) -Undermining/Tunneling Ends (O'clock) -Maximum Distance (cm) 4 -Maximum Distance #2 (cm) 5.2 -Circular Undermining Yes Yes -Exudate Amt Small Medium -Exudate Type Serosanguineous Serosanguineous -Wound Margin Distinct, Outline Attached -Granulation Amt Large (67-100%) -Granulation Quality Red -Slough/Fibrin -Necrosis Amt None Present (0 %) -Necrotic Tissue Type -Structure Exposed N/A -Texture ([place]-wound Skin Appearance) Scarring -Moisture ([place]-wound Skin Appearance) Maceration -Color ([place]-wound Skin Appearance) No Abnormality -Temperature ([place]-wound Skin No Abnormality No Abnormality Appearance) (Pt Warm) (Pt Warm) -Tenderness on Palpation ([place]-wound No Skin Appearance) -Ulcer Cleansing Rinsed/ Soap and Water Irrigated with Saline -Foul Odor after Cleansing No -Anesthetic Used 5% Lidocaine 5% Lidocaine Gel Gel Left Calf (cm) 40 Left Ankle (cm) 23.3 WC - Nurse 2 - General Ulcer CM Notes Start: 07/18/24 09:06 Freq: Status: Active Protocol: Activity Type Activity Date Activity User E-sign Co-sign Detail Recorded Client Recorded Date Recorded By Document 07/18/24 09:29 [facility] [id number] 07/18/24 09:47 [facility] Document 07/25/24 09:01 BM [id number] 07/25/24 09:17 BM Document 08/08/24 14:19 [id number] 08/08/24 14:44 Document 08/15/24 14:54 [id number] 08/15/24 15:22 Document 08/22/24 14:21 [id number] 08/22/24 14:35 07/18/24 07/25/24 08/08/24 09:29 09:01 14:19 Wound Center Nurse 2 4. LEFT BUTTOCK -Time -Correct Patient -Correct Side, Site, Position -Correct Procedure -Procedure Performed -Type of Procedure -Clinical Debridement -Tissue Removed -Post Debridement (cm) - Length -Post Debridement (cm) - Width -Post Debridement (cm) - Depth -Total Square (Post) (cm) -Area of Debridement (cm) - Length -Area of Debridement (cm) - Width -Total Square (Area) (cm) -Tunneling -Undermining/Tunneling -Circular Undermining -Wound/Ulcer Outcome -Ulcer Cleansing -Foul Odor after Cleansing -Bioengineered Tissue -Bleeding Controlled with -Treatment Response -Debridement - Subq, 1st 20sq cm #2 L Heel -Time : 09:01 14:19 -Correct Patient Yes Yes Yes -Correct Side, Site, Position Yes Yes Yes -Correct Procedure Yes Yes Yes -Procedure Performed Yes Yes Yes -Type of Procedure Debridement Debridement Debridement -Clinical Debridement Subcutaneous Subcutaneous Subcutaneous -Tissue Removed Subcutaneous Subcutaneous Subcutaneous -Post Debridement (cm) - Length 4.7 4.6 4.5 -Post Debridement (cm) - Width 4 5 5.4 -Post Debridement (cm) - Depth 0.1 0.1 0.1 -Total Square (Post) (cm) 18.8 23.0 24.30 -Area of Debridement (cm) - Length 4.7 4.6 4.5 -Area of Debridement (cm) - Width 4 5 5.4 -Total Square (Area) (cm) 18.8 23.0 24.30 -Tunneling No No No -Undermining/Tunneling No No No -Circular Undermining No No No -Wound/Ulcer Outcome Not Healed Not Healed Not Healed -Ulcer Cleansing Rinsed/ Rinsed/ Rinsed/ Irrigated with Irrigated with Irrigated with Saline Saline Saline -Foul Odor after Cleansing No No No -Bioengineered Tissue Yes Yes -Type of Bioengineered Tissue Epifix Mesh Epifix Mesh -Expiration Date 01/15/29 01/15/29 -Product Lot Number [id number] -Percent Used 100 100 -Lot number of Saline Used [id number] -Bleeding Controlled with Pressure Pressure Pressure -Treatment Response Procedure Procedure Procedure Tolerated Well Tolerated Well Tolerated Well -Debridement - Subq, 1st 20sq cm No No Yes -Debridement, SubQ, ea addt'l 20sq cm 1 or part thereof -Apply Skin Sub - 1st 25 sq cm - Feet 1 1 -Epifix Mesh (per sq cm) 11 11 #1 Sacral Cluster -Time 09:30 09:02 14:20 -Correct Patient Yes Yes Yes -Correct Side, Site, Position Yes Yes Yes -Correct Procedure Yes Yes Yes -Procedure Performed Yes Yes Yes -Type of Procedure Debridement Debridement Debridement -Clinical Debridement Muscle / Fascia Muscle / Fascia Muscle / Fascia -Tissue Removed Muscle,Fascia Muscle,Fascia Muscle -Post Debridement (cm) - Length 4 3.5 2.5 -Post Debridement (cm) - Width 2 1.5 2.0 -Post Debridement (cm) - Depth 2.5 2.5 1.5 -Total Square (Post) (cm) 8 5.25 5.00 -Area of Debridement (cm) - Length 4 3.5 2.5 -Area of Debridement (cm) - Width 2 1.5 2.0 -Total Square (Area) (cm) 8 5.25 5.00 -Tunneling No No No -Tunneling Position (O'clock) -Tunneling Distance (cm) -Undermining/Tunneling Yes Yes Yes -Undermining/Tunneling Starts (O'clock 10 9 1 ) -Undermining/Tunneling Ends (O'clock) 12 11 2 -Maximum Distance (cm) 3.6 3.7 5.0 -Circular Undermining No No Yes -Wound/Ulcer Outcome Not Healed Not Healed Not Healed -Ulcer Cleansing Rinsed/ Rinsed/ Irrigated with Irrigated with Saline Saline -Foul Odor after Cleansing No No -Bioengineered Tissue No No -Bleeding Controlled with Pressure Pressure -Treatment Response Procedure Procedure Tolerated Well Tolerated Well -Offloading Yes -Type of Offloading Other -Other Type of Offloading mattress overlay; air mattress ordered. -Pressure Reduction Wheelchair cushion, Mattress overlay, Specialty bed -Debridement - Muscle / Fascia, 1st Yes Yes Yes 20sq cm Pain Scale: 0-10 Numeric Is Patient Pain Free? Yes Yes Yes 08/15/24 08/22/24 14:54 14:21 Wound Center Nurse 2 4. LEFT BUTTOCK -Time 14:55 14:34 -Correct Patient Yes Yes -Correct Side, Site, Position Yes Yes -Correct Procedure Yes -Procedure Performed Yes -Type of Procedure Debridement -Clinical Debridement Subcutaneous -Tissue Removed Subcutaneous -Post Debridement (cm) - Length 2.6 3.7 -Post Debridement (cm) - Width 2.5 2.3 -Post Debridement (cm) - Depth 0.1 0.1 -Total Square (Post) (cm) 6.50 8.51 -Area of Debridement (cm) - Length 2.3 -Area of Debridement (cm) - Width 0.1 -Total Square (Area) (cm) 0.23 -Tunneling No No -Undermining/Tunneling No No -Circular Undermining No No -Wound/Ulcer Outcome Not Healed Not Healed -Ulcer Cleansing Rinsed/ Rinsed/ Irrigated with Irrigated with Saline Saline -Foul Odor after Cleansing No No -Bioengineered Tissue No No -Bleeding Controlled with Pressure,Silver Pressure Nitrate -Treatment Response Procedure Procedure Tolerated Well Tolerated Well -Debridement - Subq, 1st 20sq cm No #2 L Heel -Time 15:14 14:21 -Correct Patient Yes Yes -Correct Side, Site, Position Yes Yes -Correct Procedure Yes Yes -Procedure Performed Yes Yes -Type of Procedure Debridement Debridement -Clinical Debridement Subcutaneous Subcutaneous -Tissue Removed Subcutaneous Subcutaneous -Post Debridement (cm) - Length 4.0 4.5 -Post Debridement (cm) - Width 5.0 4.8 -Post Debridement (cm) - Depth 0.1 0.1 -Total Square (Post) (cm) 20.00 21.60 -Area of Debridement (cm) - Length 4.0 4.5 -Area of Debridement (cm) - Width 5.0 4.8 -Total Square (Area) (cm) 20.00 21.60 -Tunneling No No -Undermining/Tunneling No No -Circular Undermining No No -Wound/Ulcer Outcome Not Healed Not Healed -Ulcer Cleansing Rinsed/ Rinsed/ Irrigated with Irrigated with Saline Saline -Foul Odor after Cleansing No No -Bioengineered Tissue No No -Type of Bioengineered Tissue -Expiration Date -Product Lot Number -Percent Used -Lot number of Saline Used -Bleeding Controlled with Pressure Pressure -Treatment Response Procedure Procedure Tolerated Well Tolerated Well -Debridement - Subq, 1st 20sq cm Yes Yes -Debridement, SubQ, ea addt'l 20sq cm 1 or part thereof -Apply Skin Sub - 1st 25 sq cm - Feet -Epifix Mesh (per sq cm) #1 Sacral Cluster -Time 14:57 14:28 -Correct Patient Yes Yes -Correct Side, Site, Position Yes Yes -Correct Procedure Yes Yes -Procedure Performed Yes Yes -Type of Procedure Debridement Debridement -Clinical Debridement Muscle / Fascia Muscle / Fascia -Tissue Removed Muscle Muscle -Post Debridement (cm) - Length 3.0 4.0 -Post Debridement (cm) - Width 2.5 2.4 -Post Debridement (cm) - Depth 3.5 0.1 -Total Square (Post) (cm) 7.50 9.60 -Area of Debridement (cm) - Length 3.0 4.0 -Area of Debridement (cm) - Width 2.5 2.4 -Total Square (Area) (cm) 7.50 9.60 -Tunneling Yes No -Tunneling Position (O'clock) 11 -Tunneling Distance (cm) 3 -Undermining/Tunneling No Yes -Undermining/Tunneling Starts (O'clock 11 ) -Undermining/Tunneling Ends (O'clock) 3 -Maximum Distance (cm) 5.4 -Circular Undermining Yes No -Wound/Ulcer Outcome Not Healed Not Healed -Ulcer Cleansing Rinsed/ Rinsed/ Irrigated with Irrigated with Saline Saline -Foul Odor after Cleansing No No -Bioengineered Tissue No -Bleeding Controlled with Pressure Pressure -Treatment Response Procedure Procedure Tolerated Well Tolerated Well -Offloading -Type of Offloading -Other Type of Offloading -Pressure Reduction -Debridement - Muscle / Fascia, 1st Yes Yes 20sq cm Pain Scale: 0-10 Numeric Is Patient Pain Free? Yes Yes WC - Nurse 3 - General Ulcer D/C NN Start: 07/18/24 09:06 Freq: Status: Active Protocol: Activity Type Activity Date Activity User E-sign Co-sign Detail Recorded Client Recorded Date Recorded By Document 07/18/24 11:59 DL [id number] 07/18/24 12:01 DL Document 07/25/24 09:53 DL [id number] 07/25/24 09:55 DL Document 08/08/24 15:07 BMF [id number] 08/08/24 15:08 BMF Document 08/15/24 15:50 CP [id number] 08/15/24 15:51 CP Document 08/22/24 16:33 DL [id number] 08/22/24 16:39 DL 07/18/24 07/25/24 08/08/24 11:59 09:53 15:07 Wound Care Center Nurse 3 4. LEFT BUTTOCK -Ulcer Cleansing -Primary Dressing Applied -Other Dressing -Fibracol Plus 4x4 -Mepilex Border #2 L Heel -Ulcer Cleansing Rinsed/ Irrigated with Saline -Foul Odor after Cleansing No No No -Primary Dressing Applied Aquacel Extra Aquacel Extra -Other Dressing Epimesh epimesh HYDROGEL; HEEL HAT -Primary Dressing Covered/Secured with Dry Gauze & Dry Gauze & Dry Gauze & Roll Gauze Roll Gauze, Roll Gauze, Secured with Secured with Tape Tape -Other Covering Tubigrip padding -Aquacel Extra 1 1 #1 Sacral Cluster -Ulcer Cleansing Wound Cleanser Soap and Water Rinsed/ Irrigated with Saline -Foul Odor after Cleansing No No -Negative Pressure Wound Therapy Continue Continue -Setting (mmHg) 150 150 -Negative Pressure is Continuous Continuous -Primary Dressing Applied -Other Dressing SALINE MOIST TO DRY DRSG -Primary Dressing Covered/Secured with Secured with Tape -Other Covering ABD -NPWT Application Charge NPWT & NPWT & Debridement (nc Debridement (nc ) ) -Mepilex Border Left -Other tubigrip Treatment Response Procedure Procedure Procedure Tolerated Well Tolerated Well Tolerated Well Pain Scale: 0-10 Numeric Is Patient Pain Free? Yes Yes Yes WC - Visit Discharge Discharge Condition Stable Stable Stable Ambulatory Status Wheelchair Wheelchair Wheelchair Transportation Private Auto Private Auto Private Auto Accompanied by Clinical Summary of Care Provided Facility Type Home Health Home Health Home Health Orders Sent Yes Yes 08/15/24 08/22/24 15:50 16:33 Wound Care Center Nurse 3 4. LEFT BUTTOCK -Ulcer Cleansing Rinsed/ Rinsed/ Irrigated with Irrigated with Saline Saline -Primary Dressing Applied Mepilex Border Fibracol Plus 4x4,Mepilex Border -Other Dressing DAKINS GAUZE -Fibracol Plus 4x4 1 -Mepilex Border 1 1 #2 L Heel -Ulcer Cleansing Rinsed/ Rinsed/ Irrigated with Irrigated with Saline Saline -Foul Odor after Cleansing -Primary Dressing Applied C Hydrogel ($) -Other Dressing hydrogel -Primary Dressing Covered/Secured with Dry Gauze & Dry Gauze & Roll Gauze, Roll Gauze Secured with Tape -Other Covering padding -Aquacel Extra #1 Sacral Cluster -Ulcer Cleansing Rinsed/ Irrigated with Saline -Foul Odor after Cleansing -Negative Pressure Wound Therapy -Setting (mmHg) -Negative Pressure is -Primary Dressing Applied Mepilex Border -Other Dressing DAKINS GAUZE dakins -Primary Dressing Covered/Secured with -Other Covering -NPWT Application Charge -Mepilex Border 1 Left -Other tubigrip Treatment Response Procedure Tolerated Well Pain Scale: 0-10 Numeric Is Patient Pain Free? Yes Yes WC - Visit Discharge Discharge Condition Stable Stable Ambulatory Status Wheelchair Wheelchair Transportation Private Auto Private Auto Accompanied by Clinical Summary of Care Provided Yes Facility Type Home Health Home Health Orders Sent Yes Yes Additional Wound Wound debrided: Left heel pressure ulcer Laterality: Left Wound Grade/Stage: Stage III Type of Debridement: Excisional debridement Anesthesia Used: 5% Lidocaine Gel Depth: in the subcutaneous layer Percentage of wound debrided: 100 Instrument Used: 5mm curette Tissue Removed: Non viable tissue and slough Severity: Fat Layer Exposed Bleeding Controlled with: Compression and gauze Patient tolerated procedure: Patient tolerated procedure well Assessment/Plan Assessment/Plan (1) Pressure ulcer of left heel, stage 3: CODE(S): L89.623 - Pressure ulcer of left heel, stage 3 (2) Stage 4 decubitus ulcer: CODE(S): L89.94 - Pressure ulcer of unspecified site, stage 4 QUALIFIERS: Pressure injury location: sacral region Qualified Code(s): L89.154 - Pressure ulcer of sacral region, stage 4 (3) Mobility impaired: CODE(S): Z74.09 - Other reduced mobility (4) Type 2 diabetes mellitus: CODE(S): E11.9 - Type 2 diabetes mellitus without complications QUALIFIERS: Diabetes mellitus complication detail: with other circulatory complications Diabetes mellitus complication status: with circulatory complication Diabetes mellitus manager long term care insulin use: without skilled nursing use Qualified Code(s): E11.59 - Type 2 diabetes mellitus with other circulatory complications (5) Sacral decubitus ulcer, stage IV: CODE(S): L89.154 - Pressure ulcer of sacral region, stage 4 (6) 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 Patient is very complicated medical history. He had been receiving Epifix (5 applications this far) to his left heel. His left heel developed a thick, dry scabbing present that, that was a significant change in appearance. Suspect that the patient has been putting a lot of pressure to this area. Attempted to removed as much of the nonviable tissue as possible with debridement, but was not successful. Made slash vogel into the dry tissue to hopefully allow the Santyl to get under this non viable tissue to make debridement next visit more successful. Wound care for the left heel ulcer, Santyl collagenase nickel thickness daily covered with saline moistened gauze and ABD. Wash the ulcer with soap and water at the time of the dressing change. Stressed that he needs to keep his heel elevated off the bed (he has a padded boot, but that, I believe is too much pressure). Reinforced how to lift lower leg, from the knee to the ankle to elevate foot off the bed so there is no pressure at all to the heel. He verbalized understanding. His sacral ulcer has been having a difficult time keeping a seal. Discontinued wound VAC. They will apply daily Dakins 0.25% moistened gauze dressing covered with ABD daily. At the time of the dressing change, the ulcer and the kenroy wound need to be washed with soap and water. New skin tear that is proximal to sacral ulcer - place fibrocol daily and cover with gauze. He has received his low air loss mattress. He finds it uncomfortable because it hurts his back. Stressed the importance of keeping the pressure off both his buttocks and his left heel. MRI was done 08/16/24. The impression of the sacral decubitus ulcer with sacrococcygeal osteomyelitis. Wound culture of left heel ulcer from 08/08/24 positive for MDRO Pseudomonas aeruginosa. Referral to infectious disease for treatment. He is meeting with Dr. Pedersen today. He has home health to assist with dressings and his will change them on the days home health is not there. Follow up one week.
--- NOTE | 2024-08-22 18:19 | PCM.CONS.GEN ---
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 Reviewed labs, imaging, micro, wound care notes. Discussed options with him, will order picc and arrange 6 weeks iv zosyn 3.375gm q8h with weekly bmp, cbc, and esr. Return to clinic in 2-3 weeks. Thank you for this referral. HPI Consult Data Date of Consult: 08/22/24 HPI Narrative Reason for Consultation: osteo HPI Narrative: BRANDY LOMELI, is a 84 M with h/o CAD, T2DM, follows at wound center for several months of sacral ulcer and L heel wound. Has been treated for infected wound in the past. Over past few months, worsening pain, redness, drainage, and depth of involvement. No fever or chills. No recent abx. MRI and wound cx done recently. Referred to ID for abx. Additional history obtained from his at bedside. Full ROS performed and neg except as noted above. 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 HLD (hyperlipidemia) Home Medications ?Medication ?Instructions ?Recorded ?Last Taken ?Type aspirin 81 mg chewable tablet 81 mg PO DAILY@0800 09/20/13 Unknown History lorazepam 1 mg tablet 1 mg PO QHS 09/20/13 Unknown History multivitamin with folic acid 400 1 tab PO DAILY 09/20/13 Unknown History mcg tablet pyridoxine (vitamin B6) 100 mg 100 mg PO DAILY 09/20/13 Unknown History tablet tramadol 50 mg tablet 50 mg PO Q4H PRN PRN Pain 09/20/13 Unknown History famotidine 20 mg tablet (Acid 20 mg PO DAILY 12/01/18 Unknown History Master Machinist (famotidine)) ibrutinib 420 mg tablet (Imbruvica) 420 mg PO DAILY 12/01/18 Unknown History loratadine 10 mg capsule 10 mg PO DAILY 12/01/18 Unknown History cholecalciferol (vitamin D3) 25 25 mcg PO DAILY 12/30/20 Unknown History mcg (1,000 unit) tablet metformin 500 mg tablet,extended 500 mg PO BID 12/30/20 Unknown History release 24 hr gabapentin 600 mg tablet 600 mg PO TID 07/13/22 Unknown History metoprolol succinate 25 mg 25 mg PO DAILY #90 tabs 11/03/23 Unknown Rx tablet,extended release 24 hr nitroglycerin 0.4 mg sublingual 0.4 mg sublingual Q5M PRN chest 11/03/23 Unknown Rx tablet pain #25 tabs simvastatin 20 mg tablet 20 mg PO DAILY #90 tabs 11/03/23 Unknown Rx tamsulosin 0.4 mg capsule (Flomax) 0.4 mg PO DAILY 01/11/24 Unknown History amiodarone 200 mg tablet 200 mg PO DAILY #90 tabs 04/23/24 Unknown Rx apixaban 5 mg tablet (Eliquis) 5 mg PO BID #180 tabs 04/23/24 Unknown Rx lisinopril 5 mg tablet 5 mg PO DAILY #90 tabs 04/23/24 Unknown Rx Allergy/AdvReac Type Severity Reaction Status Date / Time niacin (From Niaspan Allergy Unknown Verified 06/27/24 10:28 Extended-Release) Sulfa (Sulfonamide AdvReac Swelling Verified 06/27/24 10:28 Antibiotics) Family History Father Cancer lymphoma Myocardial infarction CAD (coronary artery disease) Mother CVA (cerebral vascular accident) Cancer HLD (hyperlipidemia) Hypertension Brother Myocardial infarction CAD (coronary artery disease) Sister Breast cancer Surgical History H/O arthroscopic knee surgery History of lithotripsy History of repair of rotator cuff History of coronary artery stent placement (05/13/10) Social History Smoking Status: Never smoker alcohol intake: former substance use type: does not use caffeine: No what type of physical activity do you participate in: none seatbelt use: always do you feel safe at home: Yes Physical Exam Const alert, oriented x3 and no apparent distress General Appearance: cooperative HEENT normocephalic and head/scalp atraumatic Eyes PERRL and EOMs intact bilaterally Neck supple Resp normal air movement and clear to auscultation bilaterally Cardio regular rate and regular rhythm GI soft to palpation, non-tender and non-distended Extremity General Extremity: edema Skin Skin Narrative: tunneling sacral wound and shallow L heel wound. Reviewed recent photos as well. Neuro CN's II-XII intact bilaterally Lab / Micro Data Attestation: I reviewed the patient's lab results.
== END 2024-08-22 23:59 | disposition home or self-care (01) ==
LOC: WC 13:45
PROVIDERS: PCP Family Medicine; Referring Provider Family Medicine; Visit Provider Nurse Practitioner
DX: E11.59 Type 2 diabetes mellitus with other circulatory complications (principal); L89.154 Pressure ulcer of sacral region, stage 4; L89.623 Pressure ulcer of left heel, stage 3; L89.622 Pressure ulcer of left heel, stage 2; C91.90 Lymphoid leukemia, unspecified not having achieved remission; E78.5 Hyperlipidemia, unspecified; Z79.82 Long term (current) use of aspirin; Z79.84 Long term (current) use of oral hypoglycemic drugs; Z16.24 Resistance to multiple antibiotics; I10 Essential (primary) hypertension; I25.10 Atherosclerotic heart disease of native coronary artery without angina pectoris; Z79.01 Long term (current) use of anticoagulants; Z74.09 Other reduced mobility; A49.8 Other bacterial infections of unspecified site
CPT/HCPCS: 11042; 11043; 11045; 15275; 72197; 72220; 87070; 87075; 87077; 87186; 87205; A9575; Q4186

== ENCOUNTER 2024-08-27 10:01 | Outpatient (CLI) | payer MEDICARE, SELFPAY ==
[2024-08-27] MEDS: Piperacil/Tazobactam 3.375 GM in 0.9% Normal Saline (50mL MB+) 50 ML IV (10:26)
[2024-08-27 10:27] VITALS: BP 94/40; PULSE 63; RESP 16; TEMP 36; O2SAT 98
[2024-08-27 11:25] VITALS: BP 87/43; PULSE 64; RESP 16; TEMP 35.7; O2SAT 96
== END 2024-08-27 23:59 | disposition home or self-care (01) ==
LOC: MEDOUTP 10:01
PROVIDERS: PCP Family Medicine; Referring Provider Internal Medicine Infectious Disease; Visit Provider Internal Medicine Infectious Disease
DX: M19.09 Primary osteoarthritis, other specified site (principal)
CPT/HCPCS: 96365; J7040; A4216

== ENCOUNTER → 2024-08-27 | Outpatient (CLI) | payer MEDICARE, SELFPAY ==
[2024-08-27 08:55] VITALS: BP 118/51; PULSE 71; RESP 16; TEMP 35.8; O2SAT 100; BMI 27.2
--- NOTE | 2024-08-27 10:21 | PCM.OPRPT ---
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 Historic Interpreter medical research assistant: No Complications Complications: No Procedures Radiology Radiology Access Procedures: [id number] Insertion of PICC w/out port or pump Procedure Time Out Time Out Informed consent given: Yes Consent signed: Yes Time out checklist: patient, procedure, site marked/identified, positioning of patient, supplies available and allergies confirmed Time out verified: Yes Time out date: 08/27/24 Time out time: 09:12 PICC Line Consent Screening tool completed:: Yes Consent obtained:: Yes Consent given by (patient or responsible green party):: PATIENT Line successful (if no, document why in comments):: Yes Insertion Reason for Insertion: Sterile Process Coordinator Medication Date of Insertion: 08/27/24 Ok to use: Yes Type of PICC inserted: Single Power PICC PICC Lot #: [id number] PICC Reference #: [id number] Ultrasound/Equipment Used: Probe Cover Kit Trimmed Length (cm): 45 Insertion Length (cm): 44 Exposed Length (cm): 1 Tip Placement: Caval Atrial Junction Placement Confirmation: 3CG Insertion Vein: Left Basilic Insertion Attempts: 1 Local Anesthesia Used: Lidocaine 1% (in kit) Dressing Applied: Statlock and Tegaderm CHG Arm Measurement above site (in cm): 33 Patient Tolerated Procedure: Well Threading Difficulties: No Comments Comment: Patient identity was verified with two patient identifiers. Informed consent was obtained and time-out was completed. Hands were sanitized. The patient was positioned supine with left arm at 90 degrees. The patient's upper arm vasculature was assessed using ultrasound. Patency of the left basilic vein was confirmed and the vein was externally marked. An external measurement was obtained of 45 cm. External leads were applied to the patient's right upper chest and laterally and inferior of the umbilicus on the mid axillary line. Cap, mask, and prep gloves were donned. The underdrape was placed under the patient's arm. The site was prepped with chlorhexidine, and tourniquet was loosely applied. Prep gloves were discarded, and hands were sanitized. The sterile kit was opened with additional supplies dropped in. Sterile gown and gloves were donned, and the patient was draped. The sterile kit was assembled with needle, introducer, needless connector, and catheter lumen flushed with sterile normal saline. The marked site of insertion was anesthetized with 1% lidocaine from the kit. Patient tolerated well. The left basilic vein was then accessed using ultrasound guidance and guidewire was inserted to safety sade. The tourniquet was released. The access needle was removed while securing the guidewire in place. The site was again anesthetized with 1% lidocaine, prior to insertion of introducer sheath and dilator. Patient tolerated the insertion well. The catheter was trimmed to a length of 45 cm. Using 3Cg guidance, the catheter was then inserted through the introducer sheath, slowly. There was no resistance on insertion. The catheter followed the expected course of the vessel using 3CG tracking. Maximal p-wave, without deflection, confirming placement in the cavoatrial junction, was obtained at an insertion length of 44 cm, leaving 1 cm external. The introducer sheath was retracted and peeled away, incrementally, while keeping the catheter secured. The stylet was removed. A flushed needleless connector was attached to the lumen. Aspiration of the lumen was performed to remove any air and confirm blood return. Blood return was verified and the lumen was flushed with 10 ml of sterile normal saline in a pulsatile fashion. The catheter was clamped with the last pulsed flush. Total number of sterile flushes used for the insertion was (5) 10 ml syringes, (1) from the kit. Finally, the insertion site was cleaned with chlorhexidine, and the catheter was secured using a StatLock. The site was covered with a Tegaderm CHG Dressing and a disinfecting cap was applied. Baseline arm circumference was obtained at the insertion site and measured 33 cm. The patient was provided with a patient education handout on PICC line care of infection prevention, heavy lifting restriction, maintaining mobility, and watching for any signs of infection. The infusion center is aware that the PICC line is ready for use.
== END | disposition home or self-care (01) ==
LOC: RAD 08:48
PROVIDERS: PCP Family Medicine; Referring Provider Internal Medicine Infectious Disease; Visit Provider Internal Medicine Infectious Disease
DX: M19.09 Primary osteoarthritis, other specified site (principal)
CPT/HCPCS: 36569

== ENCOUNTER 2024-08-29 14:23 | Emergency (ER) | payer MEDICARE, SELFPAY ==
[2024-08-29 14:25] VITALS: BP 121/55; PULSE 83; RESP 18; TEMP 36.2; O2SAT 97
[2024-08-29 14:27] VITALS: BP 121/55; PULSE 83; RESP 18; TEMP 36.2; O2SAT 97
[2024-08-29 14:55] LABS: Absolute Lymphocyte Count 1.03 X10^3/uL (0.83-4.51); Absolute Neutrophil Count 12.5 X10^3/uL (2.0-7.7); Basophil# 0.04 X10^3/uL; Basophil% 0.3 % (0-1); Eosinophil# 0.19 X10^3/uL; Eosinophils% 1.3 % (0-5); Hematocrit 34.4 % (40-54); Hemoglobin 10.5 g/dL (13.0-16.5); Lymphocyte # 1.03 X10^3/ul (0.83-4.51); Mean Corp Hgb Conc 30.5 g/dL (32-36); Mean Corpuscular Hgb 28.8 pg (27.0-32.0); Mean Corpuscular Volume 94.2 fL (80-94); Monocyte# 0.93 X10^3/uL; Monocyte% 6.3 % (0-10); NRBC Flagged by Analyzer 0 % (0-5); Neutrophil # 12.48 X10^3/uL (2.7-7.7); Neutrophil % 84.6 % (47-70); Platelet Count 177 K/mm3 (150-450); RBC Distribution Width CV 15.7 % (11.6-14.6); RBC Distribution Width SD 53.7 fl (35.1-43.9); Red Blood Count 3.65 M/mm3 (4.6-6.2); White Blood Count 14.8 K/mm3 (4.4-11.0)
--- NOTE | 2024-08-29 14:56 | EX.ED.DYSGE1 ---
HPI History of Present Illness Chief Complaint: Hypotension Informant: patient, spouse/S.O. and other (wound care nurse) Narrative Narrative: Sent in by wound care nurse from the clinic with concerns over low blood pressure. Patient currently being treated for osteomyelitis of the sacrum along with Pseudomonas left foot ulcer on combination IV antibiotics per spouse. She is followed by PAULETTE Sarabia. he is on his fifth treatment. He has been following wound care weekly. Blood pressure does run low. This morning states he just did not feel well who is there now feels back to normal. Reported blood pressure initially systolic 70s recheck with 80s. He denied lightheaded symptoms. He is wheelchair-bound. Per wound care nurse also report recent diarrhea. Denies urinary symptoms. Denies cough. Denies fevers or chills. 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 HLD (hyperlipidemia) Home Medications ?Medication ?Instructions ?Recorded ?Last Taken ?Type aspirin 81 mg chewable tablet 81 mg PO DAILY@0800 09/20/13 Unknown History lorazepam 1 mg tablet 1 mg PO QHS 09/20/13 Unknown History multivitamin with folic acid 400 1 tab PO DAILY 09/20/13 Unknown History mcg tablet pyridoxine (vitamin B6) 100 mg 100 mg PO DAILY 09/20/13 Unknown History tablet tramadol 50 mg tablet 50 mg PO Q4H PRN PRN Pain 09/20/13 Unknown History famotidine 20 mg tablet (Acid 20 mg PO DAILY 12/01/18 Unknown History [employer] (famotidine)) ibrutinib 420 mg tablet (Imbruvica) 420 mg PO DAILY 12/01/18 Unknown History loratadine 10 mg capsule 10 mg PO DAILY 12/01/18 Unknown History cholecalciferol (vitamin D3) 25 25 mcg PO DAILY 12/30/20 Unknown History mcg (1,000 unit) tablet metformin 500 mg tablet,extended 500 mg PO BID 12/30/20 Unknown History release 24 hr gabapentin 600 mg tablet 600 mg PO TID 07/13/22 Unknown History metoprolol succinate 25 mg 25 mg PO DAILY #90 tabs 11/03/23 Unknown Rx tablet,extended release 24 hr nitroglycerin 0.4 mg sublingual 0.4 mg sublingual Q5M PRN chest 11/03/23 Unknown Rx tablet pain #25 tabs simvastatin 20 mg tablet 20 mg PO DAILY #90 tabs 11/03/23 Unknown Rx tamsulosin 0.4 mg capsule (Flomax) 0.4 mg PO DAILY 01/11/24 Unknown History amiodarone 200 mg tablet 200 mg PO DAILY #90 tabs 04/23/24 Unknown Rx apixaban 5 mg tablet (Eliquis) 5 mg PO BID #180 tabs 04/23/24 Unknown Rx lisinopril 5 mg tablet 5 mg PO DAILY #90 tabs 04/23/24 Unknown Rx Allergy/AdvReac Type Severity Reaction Status Date / Time niacin (From [place] Allergy Unknown Verified 08/29/24 14:25 Extended-Release) Sulfa (Sulfonamide AdvReac Swelling Verified 08/29/24 14:25 Antibiotics) Family History Father Cancer lymphoma Myocardial infarction CAD (coronary artery disease) Mother CVA (cerebral vascular accident) Cancer HLD (hyperlipidemia) Hypertension Brother Myocardial infarction CAD (coronary artery disease) Sister Breast cancer Surgical History H/O arthroscopic knee surgery History of lithotripsy History of repair of rotator cuff History of coronary artery stent placement (05/13/10) Social History Smoking Status: Never smoker alcohol intake: former substance use type: does not use caffeine: No what type of physical activity do you participate in: none seatbelt use: always do you feel safe at home: Yes ROS ROS ED Constitutional Constitutional ED: Denies chills, fever(s) or sweats Eyes Eyes: Denies change in vision ENT ENT ED: Denies dysphagia or sore throat Cardiovascular Cardiovascular: Denies chest pain, leg edema, palpitations or racing heartbeat Respiratory/Chest Respiratory/Chest: Denies cough, dyspnea or dyspnea on exertion Gastrointestinal Gastrointestinal: Denies abdominal pain, diarrhea, nausea or vomiting Genitourinary Genitourinary ED: Denies dysuria, hematuria or urinary frequency Musculoskeletal Musculoskeletal: Denies back pain, extremity pain or neck pain Integumentary Reports wounds; Denies rash Neurologic Neurologic: Denies headache(s), paresthesias or weakness EXAM Physical Exam Const Vital Signs: 08/29/24 14:25 08/29/24 14:27 08/29/24 14:46 Temperature 97.2 F L 97.2 F L Temperature Source Temporal Oral Pulse Rate 83 83 Respiratory Rate 18 18 Respiratory Effort Normal Respiratory Pattern Normal Blood Pressure 121/55 H 121/55 H Blood Pressure Mean 77 77 Pulse Ox 97 97 Oxygen Delivery Method Room Air Room Air Positive well nourished and well developed Constitutional Narrative: Nontoxic, sitting in wheelchair at this time. Spoke with Dr. Marie General Appearance ED: well developed and NAD HEENT Reports moist mucous membranes normocephalic and atraumatic Eyes EOMs intact bilaterally and conjunctivae normal General Eye ED: Yes normal appearance of both eyes Neck no lymphadenopathy and supple General: Negative for tenderness Chest Wall Chest: Negative for tenderness Resp normal respiratory effort and normal air movement Effort and Inspection: symmetric chest movement; Negative for respiratory distress Cardio regular rate, regular rhythm and no murmurs Peripheral Pulses: pulses 2+ throughout GI normal to inspection, nondistended, normoactive bowel sounds and non-tender Palpation: Negative for guarding or rebound tenderness present Back/Spine no CVA tenderness and no thoracic nor lumbar tenderness Extremity normal to inspection General Extremety ED: Negative for edema or tenderness General Extremity: Negative for edema Neuro oriented x3 and no sensory deficits noted Sensorium / Orientation: awake and alert Skin Skin Narrative: Declined evaluation of his wound sites as dressings were just placed at wound care clinic. MDM MDM MDM Narrative Medical decision making narrative: Interventions / MDM: Differential diagnosis: Well check, history of osteomyelitis sacrum, history of ulcer left foot with Pseudomonas Diagnosis considered but do not suspect: N/A My EKG interpretation: N/A Imaging independently reviewed and interpreted by myself: N/A External documents reviewed: N/A Test considered but not ordered:N/A ED course: Patient blood pressure on arrival 121/55. Nontoxic-appearing. Will check basic labs. Patient did not want me evaluate the wounds as it was evaluated at wound care clinic. White cell 14. History of CLL. Creatinine 1.11. Blood pressure remained stable. Spouse and family states blood pressure has run low since receiving the Zosyn infusions for which he gets every 8 hours. He is due for his dose. He did not want his current dose right now wants to be at home to get his dose. Blood pressure thuy stable. He is on blood pressure medicines at home also. Discussed holding his blood pressure medicines until after infusion if remains elevated can take it then. Blood pressure being stable this time, I do not feel hospitalizations warranted. Return precautions. All questions were answered. Re-evaluation: stable Disposition discussed with patient/family/significant other: Patient and family Case discussed with consulting clinician: N/A This note was generated with [employer] dictation software. It may contain incorrect words, spelling, and punctuation that were not noted in checking the note before signing. Lab Data Attestation: I reviewed the patient's lab results. Labs: Laboratory Results - last 24 hr 08/29/24 14:43 WBC 14.8 H RBC 3.65 L Hgb 10.5 L Hct 34.4 L MCV 94.2 H MCH 28.8 MCHC 30.5 L RDW Std Deviation 53.7 H RDW Coeff of Jacinda 15.7 H Plt Count 177 MPV 10.0 Immature Gran % (Auto) 0.500 Neut % (Auto) 84.6 H Lymph % (Auto) 7.0 L [place] % (Auto) 6.3 Eos % (Auto) 1.3 Baso % (Auto) 0.3 Absolute Neuts (auto) 12.5 H Absolute Lymphs (auto) 1.03 Nucleated RBC % 0 Sodium 140 Potassium 4.1 Chloride 108 H Carbon Dioxide 29.0 Anion Gap 4 L BUN 53 H Creatinine 1.11 Est GFR (MDRD) Af Amer 82 Est GFR (MDRD) Non-Af 67 BUN/Creatinine Ratio 47.7 H Glucose 122 H Calcium 8.7 Discharge Plan Triage Chief Complaint: Hypotension ED Provider: Jaylon Triplett Dx/Rx/DC Orders Clinical Impression: Osteomyelitis of sacrum, Foot ulcer, left, Personal history of CLL (chronic lymphocytic leukemia) Instructions: ED Low Blood Pressure, All Causes Prescriptions: No Action Imbruvica 420 mg tablet 420 mg PO DAILY loratadine 10 mg capsule 10 mg PO DAILY famotidine [Acid [employer] (famotidine)] 20 mg tablet 20 mg PO DAILY metformin 500 mg tablet extended release 24 hr 500 mg PO BID cholecalciferol (vitamin D3) 25 mcg (1,000 unit) tablet 25 mcg PO DAILY gabapentin 600 mg tablet 600 mg PO TID metoprolol succinate 25 mg tablet extended release 24 hr 25 mg PO DAILY Qty: 90 4RF simvastatin 20 mg tablet 20 mg PO DAILY Qty: 90 4RF nitroglycerin 0.4 mg tablet, sublingual 0.4 mg SUBLINGUAL Q5M PRN (Reason: chest pain) Qty: 25 3RF amiodarone 200 mg tablet 200 mg PO DAILY Qty: 90 3RF Eliquis 5 mg tablet 5 mg PO BID Qty: 180 3RF lisinopril 5 mg tablet 5 mg PO DAILY Qty: 90 3RF tramadol 50 MG tablet 50 mg PO Q4H PRN PRN (Reason: Pain) Patient Comments: PAIN aspirin 81 MG tablet,chewable 81 mg PO DAILY@0800 Patient Comments: HEART HEALTH pyridoxine (vitamin B6) 100 MG tablet 100 mg PO DAILY Patient Comments: SUPPLEMENT lorazepam 1 MG tablet 1 mg PO QHS Patient Comments: ANXIETY multivitamin with folic acid 1 TABLET tablet 1 tab PO DAILY Patient Comments: SUPPLEMENT tamsulosin [Flomax] 0.4 mg capsule 0.4 mg PO DAILY Primary Care Provider: Matt Flores Referrals: Matt Flores DO [Primary Care Provider] - Activity Restrictions/Additional Instructions: Blood pressure 120s in the ED throughout. Blood work is stable. He may want to hold your blood pressure medicine until after antibiotics. If elevated can take the blood pressure medicine otherwise hold at this time. Maintain follow-up with wound care clinic. If you develop worsening symptoms, return to ED for reevaluation. Print Language: Malay Disposition Disposition: Home, Self Care Discharge Date/Time: 08/29/24 15:44
[2024-08-29 15:05] LABS: Anion Gap 4 (5-15); BUN 53 mg/dL (7-18); BUN/Creat Ratio 47.7 RATIO (10-20); Calcium,Total 8.7 mg/dL (8.5-10.1); Chloride 108 mmol/L (98-107); Creatinine, Serum 1.11 mg/dL (0.70-1.30); EST Glomerular Filtration Rate 67 mL/min (>60); Est Glom Filt Rate - Afr Amer 82 mL/min (>60); Glucose 122 mg/dL (74-106); Potassium 4.1 mmol/L (3.5-5.1); Sodium Level 140 mmol/L (136-145)
== END 2024-08-29 15:44 | disposition home or self-care (01) ==
PROVIDERS: Emergency Provider Emergency Medicine; PCP Family Medicine; Referring Provider Emergency Medicine; Visit Provider Emergency Medicine
DX: M46.28 Osteomyelitis of vertebra, sacral and sacrococcygeal region (principal); E11.621 Type 2 diabetes mellitus with foot ulcer; L97.529 Non-pressure chronic ulcer of other part of left foot with unspecified severity; I25.10 Atherosclerotic heart disease of native coronary artery without angina pectoris; I25.2 Old myocardial infarction; Z99.3 Dependence on wheelchair; Z95.5 Presence of coronary angioplasty implant and graft
CPT/HCPCS: 36592; 80048; 85025; 99282; A4216

== ENCOUNTER 2024-09-05 13:30 | Outpatient (RCR) | payer MEDICARE, SELFPAY ==
[2024-08-23 00:04] VITALS: BP 121/74; PULSE 69; RESP 18; TEMP 35.8; BMI 31.6
[2024-08-29 13:03] VITALS: BP 80/31; PULSE 75; RESP 16; TEMP 37.2; BMI 31.6
--- NOTE | 2024-08-29 13:52 | PN.PCM_ITS ---
History of Present Illness Date of Service: 08/29/24 Chief Complaint: Follow-up on buttocks right and left heel wounds that have been going on for months. 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 He lays on his chair most of the day. And has developed 2 areas on his buttocks sores that have gotten bigger and they have been trying to close for months. Currently there is been using antibiotic ointment. Also has tried Silvadene creams and other things through his doctor Now he has been referred here to the wound center. Wound culture of left heel ulcer from 08/08/24 positive for MDRO Pseudomonas a eruginosa. Referral to infectious disease for treatment. MRI of Pelvis 08/16/24 - Sacral decubitus ulcer with sacrococcygeal osteomyelitis. Progress of Wound: The sacral ulcer has bone exposure. The bone is exposed and palpable. There is undermining and tunneling present. . He is sleeping on the low air loss mattress but he does not like it and it is making his back hurt. Left heel ulcer is starting to show much improvement with the use of Santyl. He also is receiving IV antibiotics from ID (Patient doesn't remember the name of the antibiotic). Treating the infection is probably helping with the improvement of the heel ulcer. Patient's BP 80/30 (taken several times). He states he has not been feeling well for a couple days with diarrhea. He states that since he started the IV antibiotics he hasn't been feeling well. His color is sallow today. Recommended he go to the ED for further evaluation. He initially declined. But he did change his mind. Objective Data Objective Data Vital Signs: Vital Signs Temp Pulse Resp BP O2 Del Method 98.9 F 75 16 80/31 L Room Air 08/29/24 13:03 08/29/24 13:03 08/29/24 13:03 08/29/24 13:03 08/29/24 13:03 Oxygen Delivery Method Room Air Weight: 220 lb 0.271 oz Body Mass Index (BMI) 31.6 Charges/Coding Procedures Integumentary 111xxx-113xx: [id number] Ginette musc/fascia 20 sq cm/< (sacral ulcer) Multi Select Codes Integumentary Integumentary CPT Codes: 01437 Ginette subq tissue 20 sq cm/< (left heel and skin tear) Debridement Note Debridement Note Wound debrided: Sacral ulcer Laterality: Left Wound Grade/Stage: Stage IV Type of Debridement: Excisional debridement Anesthesia Used: 5% Lidocaine Gel Depth: Down to and including healthy tissue, in the subcutaneous layer, to muscle and to bone Percentage of wound debrided: 100 Instrument Used: 7mm curette Tissue Removed: Non viable tissue and slough into the muscle,bone palpable but not debrided Severity: Fat Layer Exposed Amount of bleeding with debridement: Mild Bleeding Controlled with: Compression and gauze and Silver Nitrate (to the right lateral edge of ulcer) Patient tolerated procedure: Patient tolerated procedure well Post-Debridement Measurements and Additional Note: Post-Debridement Measurements/Treatment - Nurse 1 - General Ulcer Assessment Start: 08/29/24 12:58 Freq: Status: Active Protocol: CHEL Activity Type Activity Date Activity User E-sign Co-sign Detail Recorded Client Recorded Date Recorded By Document 08/29/24 13:03 [id number] 08/29/24 13:12 08/29/24 13:03 - Today's Visit Information Type of service Follow-up Visit (Physician/CORRECTIVE THERAPY AIDE ) Arrival Mode Wheelchair Transfer Assistance Manual Patient Identification Verified (Name & Yes ) Patient Requires Transmission-Based No Precautions Height and Weight Body Mass Index (BMI) 31.6 BMI Classification Obese Vital Signs Temperature (97.8 F-99.1 F) 98.9 F Temperature Source Temporal Pulse Rate (60-100) 75 Pulse Location Monitor Respiratory Rate (12-18) 16 Respiratory rate source Observation Oxygen Delivery Method Room Air Blood Pressure (90/60-120/80) 80/31 L Blood Pressure Mean (mm Hg) 47 Source Monitor Position Semi-Fowlers Blood Pressure Location Right Arm History Since Last Visit- (Skip if this is Patient's initial visit) Have you changed medications since your No last visit? Any new allergies or adverse reactions No Had a fall/change in ADL's that may No increase risk of falls Signs or symptoms of abuse and/or No neglect since last visit Have you been in the hospital since your No last visit? Has dressing in place as prescribed Yes Has compression in place as prescribed Yes Pain Scale: 0-10 Numeric Is Patient Pain Free? Yes - Nurse 1 - General Ulcer Measurement Start: 08/29/24 12:58 Freq: Status: Active Protocol: Activity Type Activity Date Activity User E-sign Co-sign Detail Recorded Client Recorded Date Recorded By Document 08/29/24 13:03 [id number] 08/29/24 13:12 08/29/24 13:03 Wound Center Nurse 1 4. LEFT BUTTOCK -Current Size (cm) - Length 2.7 -Current Size (cm) - Width 1.6 -Current Size (cm) - Depth 0.1 -Total Square Cm 4.32 -Date of Last Picture (Recall this 08/29/24 field) -Photo Taken Yes -Epithelialization Small 1-33% -Tunneling No -Undermining/Tunneling No -Circular Undermining No -Exudate Type Sanguineous -Granulation Amt Medium (34-66%) -Granulation Quality [place] -Slough/Fibrin No -Texture (Andreea-wound Skin Appearance) Assessed -Moisture (Andreea-wound Skin Appearance) Assessed -Color (Andreea-wound Skin Appearance) Assessed -Temperature (Andreea-wound Skin No Abnormality Appearance) (Pt Warm) -Ulcer Cleansing Rinsed/ Irrigated with Saline -Foul Odor after Cleansing No -Anesthetic Used 4% Lidocaine Solution #2 L Heel -Current Size (cm) - Length 4.3 -Current Size (cm) - Width 4.9 -Current Size (cm) - Depth 0.1 -Total Square Cm 21.07 -Date of Last Picture (Recall this 08/29/24 field) -Photo Taken Yes -Epithelialization None Present -Tunneling No -Undermining/Tunneling No -Circular Undermining No -Exudate Type Serosanguineous -Wound Margin Distinct, Outline Attached -Granulation Amt Medium (34-66%) -Granulation Quality [place] -Slough/Fibrin Yes -Necrosis Amt Small (1-33%) -Necrotic Tissue Type Adherent Slough -Texture (Andreea-wound Skin Appearance) Assessed -Moisture (Andreea-wound Skin Appearance) Assessed -Color (Andreea-wound Skin Appearance) Assessed -Temperature (Andreea-wound Skin No Abnormality Appearance) (Pt Warm) -Tenderness on Palpation (Andreea-wound No Skin Appearance) -Ulcer Cleansing Rinsed/ Irrigated with Saline -Foul Odor after Cleansing No -Anesthetic Used 4% Lidocaine Solution #1 Sacral Cluster -Current Size (cm) - Length 3.9 -Current Size (cm) - Width 1.4 -Current Size (cm) - Depth 1.1 -Total Square Cm 5.46 -Date of Last Picture (Recall this 08/29/24 field) -Photo Taken Yes -Epithelialization None Present -Tunneling No -Undermining/Tunneling No -Circular Undermining No -Exudate Amt Medium -Exudate Type Serosanguineous -Wound Margin Distinct, Outline Attached -Granulation Amt Medium (34-66%) -Granulation Quality Red -Slough/Fibrin No -Texture (Andreea-wound Skin Appearance) Assessed -Moisture (Andreea-wound Skin Appearance) Assessed -Color (Andreea-wound Skin Appearance) Assessed -Ulcer Cleansing Not Cleansed -Foul Odor after Cleansing No -Anesthetic Used 4% Lidocaine Solution WC - Nurse 2 - General Ulcer CM Notes Start: 08/29/24 12:58 Freq: Status: Active Protocol: Activity Type Activity Date Activity User E-sign Co-sign Detail Recorded Client Recorded Date Recorded By Document 08/29/24 13:20 [id number] 08/29/24 13:29 08/29/24 13:20 Wound Center Nurse 2 4. LEFT BUTTOCK -Time 13:22 -Correct Patient Yes -Correct Side, Site, Position Yes -Correct Procedure Yes -Procedure Performed Yes -Type of Procedure Debridement -Clinical Debridement Subcutaneous -Tissue Removed Subcutaneous -Post Debridement (cm) - Length 3.4 -Post Debridement (cm) - Width 1.5 -Post Debridement (cm) - Depth 0.1 -Total Square (Post) (cm) 5.10 -Area of Debridement (cm) - Length 3.4 -Area of Debridement (cm) - Width 1.5 -Total Square (Area) (cm) 5.10 -Tunneling No -Undermining/Tunneling No -Circular Undermining No -Wound/Ulcer Outcome Not Healed -Ulcer Cleansing Rinsed/ Irrigated with Saline -Foul Odor after Cleansing No -Bioengineered Tissue No -Bleeding Controlled with Pressure -Treatment Response Procedure Tolerated Well -Debridement - Subq, 1st 20sq cm Yes #2 L Heel -Time 13:21 -Correct Patient Yes -Correct Side, Site, Position Yes -Correct Procedure Yes -Procedure Performed Yes -Type of Procedure Debridement -Clinical Debridement Subcutaneous -Tissue Removed Subcutaneous -Post Debridement (cm) - Length 5.0 -Post Debridement (cm) - Width 3.5 -Post Debridement (cm) - Depth 0.1 -Total Square (Post) (cm) 17.50 -Area of Debridement (cm) - Length 5.0 -Area of Debridement (cm) - Width 3.5 -Total Square (Area) (cm) 17.50 -Tunneling No -Undermining/Tunneling No -Circular Undermining No -Wound/Ulcer Outcome Not Healed -Ulcer Cleansing Rinsed/ Irrigated with Saline -Foul Odor after Cleansing No -Bioengineered Tissue No -Bleeding Controlled with Pressure -Treatment Response Procedure Tolerated Well -Debridement - Subq, 1st 20sq cm No #1 Sacral Cluster -Time 13:22 -Correct Patient Yes -Correct Side, Site, Position Yes -Correct Procedure Yes -Procedure Performed Yes -Type of Procedure Debridement -Clinical Debridement Muscle / Fascia -Tissue Removed Muscle -Post Debridement (cm) - Length 4.0 -Post Debridement (cm) - Width 2.0 -Post Debridement (cm) - Depth 1.7 -Total Square (Post) (cm) 8.00 -Area of Debridement (cm) - Length 4.0 -Area of Debridement (cm) - Width 2.0 -Total Square (Area) (cm) 8.00 -Tunneling No -Undermining/Tunneling Yes -Undermining/Tunneling Starts (O'clock 2 ) -Maximum Distance (cm) 5.4 -Circular Undermining No -Wound/Ulcer Outcome Not Healed -Ulcer Cleansing Rinsed/ Irrigated with Saline -Foul Odor after Cleansing No -Bioengineered Tissue No -Bleeding Controlled with Pressure -Treatment Response Procedure Tolerated Well -Debridement - Muscle / Fascia, 1st Yes 20sq cm Pain Scale: 0-10 Numeric Is Patient Pain Free? Yes - Nurse 3 - General Ulcer D/C NN Start: 08/29/24 12:58 Freq: Status: Active Protocol: Activity Type Activity Date Activity User E-sign Co-sign Detail Recorded Client Recorded Date Recorded By Document 08/29/24 13:49 TIM [id number] 08/29/24 13:50 KW 08/29/24 13:49 Wound Care Center Nurse 3 4. LEFT BUTTOCK -Primary Dressing Applied Fibracol Plus 4x4 -Fibracol Plus 4x4 1 #2 L Heel -Other Dressing santyl- hydrogel applied today -Primary Dressing Covered/Secured with Dry Gauze & Roll Gauze, Secured with Tape #1 Sacral Cluster -Primary Dressing Applied Mepilex Border -Other Dressing dakins soaked gauze -Mepilex Border 1 Pain Scale: 0-10 Numeric Is Patient Pain Free? Yes Additional Wound Wound debrided: Left heel pressure ulcer Laterality: Left Wound Grade/Stage: Stage III Type of Debridement: Excisional debridement Anesthesia Used: 5% Lidocaine Gel Depth: in the subcutaneous layer Percentage of wound debrided: 100 Instrument Used: 5mm curette Tissue Removed: Non viable tissue and slough Severity: Fat Layer Exposed Bleeding Controlled with: Compression and gauze Patient tolerated procedure: Patient tolerated procedure well Additional Wound Wound debrided: Skin tear proximal to sacarl ulcer Wound Grade/Stage: Stage II Type of Debridement: Excisional debridement Anesthesia Used: 5% Lidocaine Gel Depth: Down to and including healthy tissue and in the subcutaneous layer Percentage of wound debrided: 100 Instrument Used: 5mm curette Tissue Removed: Non viable tissue and slough Severity: Fat Layer Exposed Amount of bleeding with debridement: Mild Bleeding Controlled with: Pressure and Compression and gauze Patient tolerated procedure: Patient tolerated procedure well Assessment/Plan Assessment/Plan (1) Sacral decubitus ulcer, stage IV: CODE(S): L89.154 - Pressure ulcer of sacral region, stage 4 (2) Pressure ulcer of left heel, stage 3: CODE(S): L89.623 - Pressure ulcer of left heel, stage 3 (3) Mobility impaired: CODE(S): Z74.09 - Other reduced mobility (4) Type 2 diabetes mellitus: CODE(S): E11.9 - Type 2 diabetes mellitus without complications QUALIFIERS: Diabetes mellitus termite treater helper insulin use: without termite treater helper use Diabetes mellitus complication status: with circulatory complication Diabetes mellitus complication detail: with other circulatory complications Qualified Code(s): E11.59 - Type 2 diabetes mellitus with other circulatory complications (5) 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 Patient is very complicated medical history. He had been receiving Epifix (5 applications this far) to his left heel. His left heel developed a thick, dry scabbing present that, that was a significant change in appearance. Suspect that the patient has been putting a lot of pressure to this area. Wound care for the left heel ulcer, Santyl collagenase nickel thickness daily covered with saline moistened gauze and ABD. Wash the ulcer with soap and water at the time of the dressing change. Stressed that he needs to keep his heel elevated off the bed (he has a padded boot, but that, I believe is too much pressure). Reinforced how to lift lower leg, from the knee to the ankle to elevate foot off the bed so there is no pressure at all to the heel. He verbalized understanding. His sacral ulcer apply daily Dakins 0.25% moistened gauze dressing covered with ABD daily. At the time of the dressing change, the ulcer and the andreea wound need to be washed with soap and water. Skin tear that is proximal to sacral ulcer - place fibrocol daily and cover with gauze. He has received his low air loss mattress. He finds it uncomfortable because it hurts his back. Stressed the importance of keeping the pressure off both his buttocks and his left heel. MRI was done 08/16/24. The impression of the sacral decubitus ulcer with sacrococcygeal osteomyelitis. Wound culture of left heel ulcer from 08/08/24 positive for MDRO Pseudomonas aeruginosa. Referral to infectious disease for treatment. He is meeting with Dr. Pedersen last week and was started on IV antibiotics. Patient's BP 80/30 (taken several times). He states he has not been feeling well for a couple days with diarrhea. He states that since he started the IV antibiotics he hasn't been feeling well. His color is sallow today. Recommended he go to the ED for further evaluation. He initially declined but was eventually convinced he should go to be evaluated. I phoned the ED and spoke with Dr. Gonzalez to discuss that patient's BP is low and he has not been feeling well with diarrhea for the past several days and he does not look well. He has home health to assist with dressings and his will change them on the days home health is not there. Follow up one week.
--- NOTE | 2024-08-30 09:08 | WC ---
PHOTO 08/29/24 SACRUM
--- NOTE | 2024-08-30 09:23 | WC ---
PHOTO 08/29/24 LEFT BUTTOCKS
--- NOTE | 2024-08-30 09:33 | WC ---
PHOTO LEFT HEEL 08/29/24
[2024-09-05 13:41] VITALS: BP 126/45; PULSE 75; RESP 16; TEMP 36.3; BMI 31.6
--- NOTE | 2024-09-05 16:41 | PCM.WC.PN ---
History of Present Illness Date of Service: 09/05/24 Chief Complaint: Follow-up on buttocks right and left heel wounds that have been going on for months. 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 He lays on his chair most of the day. And has developed 2 areas on his buttocks sores that have gotten bigger and they have been trying to close for months. Currently there is been using antibiotic ointment. Also has tried Silvadene creams and other things through his doctor Now he has been referred here to the wound center. Wound culture of left heel ulcer from 08/08/24 positive for MDRO Pseudomonas aeruginosa. Referral to infectious disease for treatment. MRI of Pelvis 08/16/24 - Sacral decubitus ulcer with sacrococcygeal osteomyelitis. Progress of Wound: The sacral ulcer has bone exposure. The bone is exposed and palpable. There is undermining and tunneling present. He is sleeping on the low air loss mattress. Left heel ulcer is starting to show some improvement with the use of Santyl. He also is receiving IV antibiotics from ID. He had a low BP while here last week. He did go to the ED. His blood pressure was ok by the time he went over there but according to his , they gave him some fluids because he was dehydrated. Objective Data Objective Data Vital Signs: Vital Signs Temp Pulse Resp BP O2 Del Method 97.3 F L 75 16 126/45 H Room Air 09/05/24 13:41 09/05/24 13:41 09/05/24 13:41 09/05/24 13:41 09/05/24 13:41 Oxygen Delivery Method Room Air Weight: 220 lb 0.271 oz Body Mass Index (BMI) 31.6 Charges/Coding Procedures Integumentary 111xxx-113xx: 14418 Ginette subq tissue 20 sq cm/< (left heel and buttocks) Add On Codes: 00445 Ginette subq tissue add-on Multi Select Codes Integumentary Integumentary CPT Codes: 35932 Ginette musc/fascia 20 sq cm/< (sacral ulcer) Debridement Note Debridement Note Wound debrided: Sacral ulcer Laterality: Left Wound Grade/Stage: Stage IV Type of Debridement: Excisional debridement Anesthesia Used: 5% Lidocaine Gel Depth: Down to and including healthy tissue, in the subcutaneous layer, to muscle and to bone Percentage of wound debrided: 100 Instrument Used: 7mm curette Tissue Removed: Non viable tissue and slough into the muscle,bone palpable but not debrided Severity: Fat Layer Exposed Amount of bleeding with debridement: Mild Bleeding Controlled with: Compression and gauze Patient tolerated procedure: Patient tolerated procedure well Post-Debridement Measurements and Additional Note: Post-Debridement Measurements/Treatment WC - Nurse 1 - General Ulcer Assessment Start: 08/29/24 12:58 Freq: Status: Active Protocol: CHEL Activity Type Activity Date Activity User E-sign Co-sign Detail Recorded Client Recorded Date Recorded By Document 08/29/24 13:03 GM [id number] 08/29/24 13:12 GM Document 09/05/24 13:41 DL [id number] 09/05/24 13:49 DL 08/29/24 09/05/24 13:03 13:41 - Today's Visit Information Type of service Follow-up Visit Follow-up Visit (Physician/STAFF DEVELOPMENT MANAGER (Physician/STAFF DEVELOPMENT MANAGER ) ) Arrival Mode Wheelchair Wheelchair Transfer Assistance Manual Other Transfer Assist (Other) 2 Accompanied by Patient Identification Verified (Name & Yes Yes ) Patient Requires Transmission-Based No No Precautions Height and Weight Body Mass Index (BMI) 31.6 31.6 BMI Classification Obese Obese Vital Signs Temperature (97.8 F-99.1 F) 98.9 F 97.3 F L Temperature Source Temporal Temporal Pulse Rate (60-100) 75 75 Pulse Location Monitor Monitor Respiratory Rate (12-18) 16 16 Respiratory rate source Observation Observation Oxygen Delivery Method Room Air Room Air Blood Pressure (90/60-120/80) 80/31 L 126/45 H Blood Pressure Mean (mm Hg) 47 72 Source Monitor Monitor Position Semi-Fowlers Sitting Blood Pressure Location Right Arm Right Arm History Since Last Visit- (Skip if this is Patient's initial visit) Have you changed medications since your No No last visit? Any new allergies or adverse reactions No No Had a fall/change in ADL's that may No No increase risk of falls Signs or symptoms of abuse and/or No No neglect since last visit Have you been in the hospital since your No No last visit? Has dressing in place as prescribed Yes Yes Has compression in place as prescribed Yes Yes Has offloadiing in place as prescribed Yes Experienced any changes in pain level or No management Left Footwear Surgical Shoe with pressure relief insole Right Footwear Regular Shoe Pain Scale: 0-10 Numeric Is Patient Pain Free? Yes Yes WC - Nurse 1 - General Ulcer Measurement Start: 08/29/24 12:58 Freq: Status: Active Protocol: Activity Type Activity Date Activity User E-sign Co-sign Detail Recorded Client Recorded Date Recorded By Document 08/29/24 13:03 GM [id number] 08/29/24 13:12 GM Document 09/05/24 13:41 DL [id number] 09/05/24 13:49 DL 08/29/24 09/05/24 13:03 13:41 Wound Center Nurse 1 4. LEFT BUTTOCK -Combined with other wound No -Current Size (cm) - Length 2.7 2.8 -Current Size (cm) - Width 1.6 1.3 -Current Size (cm) - Depth 0.1 0.1 -Total Square Cm 4.32 3.64 -Date of Last Picture (Recall this 08/29/24 09/05/24 field) -Photo Taken Yes Yes -Epithelialization Small 1-33% Small 1-33% -Tunneling No No -Undermining/Tunneling No No -Circular Undermining No No -Exudate Amt Medium -Exudate Type Sanguineous Serosanguineous -Wound Margin Distinct, Outline Attached -Granulation Amt Medium (34-66%) Large (67-100%) -Granulation Quality [place] -Slough/Fibrin No No -Necrosis Amt Small (1-33%) -Necrotic Tissue Type Adherent Slough -Texture ([place]-wound Skin Appearance) Assessed Assessed, Scarring -Moisture ([place]-wound Skin Appearance) Assessed Assessed, Maceration -Color ([place]-wound Skin Appearance) Assessed Assessed -Temperature ([place]-wound Skin No Abnormality No Abnormality Appearance) (Pt Warm) (Pt Warm) -Tenderness on Palpation ([place]-wound No Skin Appearance) -Ulcer Cleansing Rinsed/ Soap and Water Irrigated with Saline -Foul Odor after Cleansing No No -Anesthetic Used 4% Lidocaine 4% Lidocaine Solution Solution #2 L Heel -Combined with other wound No -Current Size (cm) - Length 4.3 4.7 -Current Size (cm) - Width 4.9 3.8 -Current Size (cm) - Depth 0.1 0.1 -Total Square Cm 21.07 17.86 -Date of Last Picture (Recall this 08/29/24 09/05/24 field) -Photo Taken Yes Yes -Epithelialization None Present None Present -Tunneling No No -Undermining/Tunneling No No -Circular Undermining No No -Exudate Amt Large -Exudate Type Serosanguineous Serosanguineous -Wound Margin Distinct, Distinct, Outline Outline Attached Attached -Granulation Amt Medium (34-66%) Medium (34-66%) -Granulation Quality [place] -Slough/Fibrin Yes Yes -Necrosis Amt Small (1-33%) Medium (34-66%) -Necrotic Tissue Type Adherent Slough Adherent Slough -Texture ([place]-wound Skin Appearance) Assessed Assessed -Moisture ([place]-wound Skin Appearance) Assessed Assessed, Maceration -Color ([place]-wound Skin Appearance) Assessed Assessed -Temperature ([place]-wound Skin No Abnormality No Abnormality Appearance) (Pt Warm) (Pt Warm) -Tenderness on Palpation ([place]-wound No No Skin Appearance) -Ulcer Cleansing Rinsed/ Soap and Water Irrigated with Saline -Foul Odor after Cleansing No No -Anesthetic Used 4% Lidocaine 4% Lidocaine Solution Solution #1 Sacral Cluster -Combined with other wound No -Current Size (cm) - Length 3.9 3.5 -Current Size (cm) - Width 1.4 2.4 -Current Size (cm) - Depth 1.1 1.7 -Total Square Cm 5.46 8.40 -Date of Last Picture (Recall this 08/29/24 09/05/24 field) -Photo Taken Yes Yes -Epithelialization None Present Small 1-33% -Tunneling No No -Undermining/Tunneling No Yes -Undermining/Tunneling Starts (O'clock 11 ) -Undermining/Tunneling Ends (O'clock) 4 -Maximum Distance (cm) 5.8 -Circular Undermining No No -Exudate Amt Medium Large -Exudate Type Serosanguineous Serosanguineous -Wound Margin Distinct, Distinct, Outline Outline Attached Attached -Granulation Amt Medium (34-66%) Large (67-100%) -Granulation Quality [place] -Slough/Fibrin No Yes -Necrosis Amt Small (1-33%) -Necrotic Tissue Type Adherent Slough -Texture ([place]-wound Skin Appearance) Assessed Assessed, Scarring -Moisture ([place]-wound Skin Appearance) Assessed Assessed, Maceration -Color ([place]-wound Skin Appearance) Assessed Assessed -Temperature ([place]-wound Skin No Abnormality Appearance) (Pt Warm) -Tenderness on Palpation ([place]-wound No Skin Appearance) -Ulcer Cleansing Not Cleansed Soap and Water -Foul Odor after Cleansing No No -Anesthetic Used 4% Lidocaine 4% Lidocaine Solution Solution WC - Nurse 2 - General Ulcer CM Notes Start: 08/29/24 12:58 Freq: Status: Active Protocol: Activity Type Activity Date Activity User E-sign Co-sign Detail Recorded Client Recorded Date Recorded By Document 08/29/24 13:20 GM [id number] 08/29/24 13:29 GM Edit Result 08/29/24 13:20 GM (1) [id number] 08/29/24 16:08 GM Document 09/05/24 14:02 GM [id number] 09/05/24 14:13 GM (1) 4. LEFT BUTTOCK - Debridement, SubQ, ea addt'l 20sq cm => 1 or part thereof 08/29/24 09/05/24 13:20 14:02 Wound Center Nurse 2 4. LEFT BUTTOCK -Time 13:22 14:02 -Correct Patient Yes Yes -Correct Side, Site, Position Yes Yes -Correct Procedure Yes Yes -Procedure Performed Yes Yes -Type of Procedure Debridement Debridement -Clinical Debridement Subcutaneous Subcutaneous -Tissue Removed Subcutaneous Subcutaneous -Post Debridement (cm) - Length 3.4 2.6 -Post Debridement (cm) - Width 1.5 1.8 -Post Debridement (cm) - Depth 0.1 0.1 -Total Square (Post) (cm) 5.10 4.68 -Area of Debridement (cm) - Length 3.4 2.6 -Area of Debridement (cm) - Width 1.5 1.8 -Total Square (Area) (cm) 5.10 4.68 -Tunneling No No -Undermining/Tunneling No No -Circular Undermining No No -Wound/Ulcer Outcome Not Healed Not Healed -Ulcer Cleansing Rinsed/ Rinsed/ Irrigated with Irrigated with Saline Saline -Foul Odor after Cleansing No No -Bioengineered Tissue No No -Bleeding Controlled with Pressure Pressure -Treatment Response Procedure Procedure Tolerated Well Tolerated Well -Debridement - Subq, 1st 20sq cm Yes Yes -Debridement, SubQ, ea addt'l 20sq cm 1 or part thereof #2 L Heel -Time 13:21 14:02 -Correct Patient Yes Yes -Correct Side, Site, Position Yes Yes -Correct Procedure Yes Yes -Procedure Performed Yes Yes -Type of Procedure Debridement Debridement -Clinical Debridement Subcutaneous Subcutaneous -Tissue Removed Subcutaneous Subcutaneous -Post Debridement (cm) - Length 5.0 5.0 -Post Debridement (cm) - Width 3.5 4.0 -Post Debridement (cm) - Depth 0.1 0.2 -Total Square (Post) (cm) 17.50 20.00 -Area of Debridement (cm) - Length 5.0 5.0 -Area of Debridement (cm) - Width 3.5 4.0 -Total Square (Area) (cm) 17.50 20.00 -Tunneling No No -Undermining/Tunneling No No -Circular Undermining No No -Wound/Ulcer Outcome Not Healed Not Healed -Ulcer Cleansing Rinsed/ Rinsed/ Irrigated with Irrigated with Saline Saline -Foul Odor after Cleansing No No -Bioengineered Tissue No No -Bleeding Controlled with Pressure Pressure -Treatment Response Procedure Procedure Tolerated Well Tolerated Well -Debridement - Subq, 1st 20sq cm No No #1 Sacral Cluster -Time 13:22 14:05 -Correct Patient Yes Yes -Correct Side, Site, Position Yes Yes -Correct Procedure Yes Yes -Procedure Performed Yes Yes -Type of Procedure Debridement Debridement -Clinical Debridement Muscle / Fascia Muscle / Fascia -Tissue Removed Muscle Muscle -Post Debridement (cm) - Length 4.0 3.8 -Post Debridement (cm) - Width 2.0 2.2 -Post Debridement (cm) - Depth 1.7 1.3 -Total Square (Post) (cm) 8.00 8.36 -Area of Debridement (cm) - Length 4.0 3.8 -Area of Debridement (cm) - Width 2.0 2.2 -Total Square (Area) (cm) 8.00 8.36 -Tunneling No -Undermining/Tunneling Yes Yes -Undermining/Tunneling Starts (O'clock 2 12 ) -Undermining/Tunneling Ends (O'clock) 2 -Maximum Distance (cm) 5.4 5.1 -Circular Undermining No No -Wound/Ulcer Outcome Not Healed Not Healed -Ulcer Cleansing Rinsed/ Rinsed/ Irrigated with Irrigated with Saline Saline -Foul Odor after Cleansing No No -Bioengineered Tissue No No -Bleeding Controlled with Pressure Pressure -Treatment Response Procedure Procedure Tolerated Well Tolerated Well -Debridement - Muscle / Fascia, 1st Yes Yes 20sq cm Pain Scale: 0-10 Numeric Is Patient Pain Free? Yes Yes - Nurse 3 - General Ulcer D/C NN Start: 08/29/24 12:58 Freq: Status: Active Protocol: Activity Type Activity Date Activity User E-sign Co-sign Detail Recorded Client Recorded Date Recorded By Document 08/29/24 13:49 [id number] 08/29/24 13:50 Document 09/05/24 14:28 [facility] [id number] 09/05/24 14:31 [facility] 08/29/24 09/05/24 13:49 14:28 Wound Care Center Nurse 3 4. LEFT BUTTOCK -Ulcer Cleansing Rinsed/ Irrigated with Saline -Foul Odor after Cleansing No -Primary Dressing Applied Fibracol Plus Aquacel AG 4x4, 4x4 Mepilex Border -Aquacel AG 4x4 1 -Fibracol Plus 4x4 1 -Mepilex Border 1 -Wound Comment(s) DRSG PER DL LOADING DOCK HELPER #2 L Heel -Ulcer Cleansing Rinsed/ Irrigated with Saline -Foul Odor after Cleansing No -Primary Dressing Applied Aquacel AG 4x4 -Other Dressing santyl- DRSG PER DL LOADING DOCK HELPER hydrogel applied today -Primary Dressing Covered/Secured with Dry Gauze & Dry Gauze & Roll Gauze, Roll Gauze, Secured with Secured with Tape Tape -Aquacel AG 4x4 1 #1 Sacral Cluster -Ulcer Cleansing Rinsed/ Irrigated with Saline -Foul Odor after Cleansing No -Primary Dressing Applied Mepilex Border Mepilex Border -Other Dressing dakins soaked DAKINS MOIST gauze GAUZE; PER DL LOADING DOCK HELPER -Mepilex Border 1 0 Left -Tubular Bandage Single Layer -Size of Tubigrip Used Size E -Size E ($) 1 Treatment Response Procedure Tolerated Well Pain Scale: 0-10 Numeric Is Patient Pain Free? Yes Yes - Visit Discharge Discharge Condition Stable Ambulatory Status Wheelchair Transportation Private Auto Accompanied by Facility Type Home Health Additional Wound Wound debrided: Left heel pressure ulcer Laterality: Left Wound Grade/Stage: Stage III Type of Debridement: Excisional debridement Anesthesia Used: 5% Lidocaine Gel Depth: in the subcutaneous layer Percentage of wound debrided: 100 Instrument Used: 5mm curette and 7mm curette Tissue Removed: Non viable tissue and slough Severity: Fat Layer Exposed Bleeding Controlled with: Compression and gauze Patient tolerated procedure: Patient tolerated procedure well Additional Wound Wound debrided: Skin tear proximal to sacarl ulcer Wound Grade/Stage: Stage II Type of Debridement: Excisional debridement Anesthesia Used: 5% Lidocaine Gel Depth: Down to and including healthy tissue and in the subcutaneous layer Percentage of wound debrided: 100 Instrument Used: 5mm curette Tissue Removed: Non viable tissue and slough Severity: Fat Layer Exposed Amount of bleeding with debridement: Mild Bleeding Controlled with: Pressure and Compression and gauze Patient tolerated procedure: Patient tolerated procedure well Assessment/Plan Assessment/Plan (1) Sacral decubitus ulcer, stage IV: CODE(S): L89.154 - Pressure ulcer of sacral region, stage 4 (2) Pressure ulcer of left heel, stage 3: CODE(S): L89.623 - Pressure ulcer of left heel, stage 3 (3) Mobility impaired: CODE(S): Z74.09 - Other reduced mobility (4) Type 2 diabetes mellitus: CODE(S): E11.9 - Type 2 diabetes mellitus without complications QUALIFIERS: Diabetes mellitus terminal gauger insulin use: without mcc use Diabetes mellitus complication status: with circulatory complication Diabetes mellitus complication detail: with other circulatory complications Qualified Code(s): E11.59 - Type 2 diabetes mellitus with other circulatory complications (5) 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 Patient is very complicated medical history. He had been receiving Epifix (5 applications this far) to his left heel. His left heel developed a thick, dry scabbing present that, that was a significant change in appearance. Suspect that the patient has been putting a lot of pressure to this area. Wound care for the left heel ulcer, Santyl collagenase nickel thickness daily covered with saline moistened gauze and ABD until they complete the Santyl. Once the Santyl is completed, Start Aquacel-Ag covered with gauze daily. Wash the ulcer with soap and water at the time of the dressing change. Stressed that he needs to keep his heel elevated off the bed (he has a padded boot, but that, I believe is too much pressure). Reinforced how to lift lower leg, from the knee to the ankle to elevate foot off the bed so there is no pressure at all to the heel. He verbalized understanding. His sacral ulcer apply daily Dakins 0.25% moistened gauze dressing covered with ABD daily. At the time of the dressing change, the ulcer and the kenroy wound need to be washed with soap and water. Skin tear that is proximal to sacral ulcer - place fibrocol daily and cover with gauze. Once they finish up the Fibrocol will switch this ulcer to Aquacel-Ag covered with ABD daily. He has received his low air loss mattress. Stressed the importance of keeping the pressure off both his buttocks and his left heel. MRI was done 08/16/24. The impression of the sacral decubitus ulcer with sacrococcygeal osteomyelitis. Wound culture of left heel ulcer from 08/08/24 positive for MDRO Pseudomonas aeruginosa. Referral to infectious disease for treatment. He is met with Dr. Pedersen and was started on IV antibiotics. He has home health to assist with dressings and his will change them on the days home health is not there. Follow up two weeks due to the holiday.
--- NOTE | 2024-09-06 08:44 | WC ---
PHOTO 09/05/24 [facility]CRUM/LEFT BUTTOCKS
--- NOTE | 2024-09-06 08:45 | WC ---
PHOTO 09/05/24 LEFT BUTTOCKS
--- NOTE | 2024-09-06 08:47 | WC ---
PHOTO 09/05/24 [facility]CRUM
--- NOTE | 2024-09-06 08:49 | WC ---
PHOTO 09/05/24 LEFT HEEL
== END 2024-09-15 23:59 | disposition home or self-care (01) ==
LOC: WC 13:30
PROVIDERS: PCP Family Medicine; Referring Provider Family Medicine; Visit Provider Nurse Practitioner Family
DX: L89.154 Pressure ulcer of sacral region, stage 4 (principal); L89.623 Pressure ulcer of left heel, stage 3; M46.28 Osteomyelitis of vertebra, sacral and sacrococcygeal region; C91.90 Lymphoid leukemia, unspecified not having achieved remission; I48.0 Paroxysmal atrial fibrillation; E11.69 Type 2 diabetes mellitus with other specified complication; E11.59 Type 2 diabetes mellitus with other circulatory complications; Z74.09 Other reduced mobility; Z16.24 Resistance to multiple antibiotics; I25.10 Atherosclerotic heart disease of native coronary artery without angina pectoris; E78.5 Hyperlipidemia, unspecified; Z79.899 Other long term (current) drug therapy; Z79.82 Long term (current) use of aspirin; Z79.84 Long term (current) use of oral hypoglycemic drugs; Z79.01 Long term (current) use of anticoagulants; B96.5 Pseudomonas (aeruginosa) (mallei) (pseudomallei) as the cause of diseases classified elsewhere; A49.8 Other bacterial infections of unspecified site; S31.801A Laceration without foreign body of unspecified buttock, initial encounter; X58.XXXA Exposure to other specified factors, initial encounter
CPT/HCPCS: 11042; 11043; 11045

== ENCOUNTER 2024-09-10 15:14 | Outpatient (RCR) | payer MEDICARE, SELFPAY ==
[2024-09-03 14:29] LABS: Hematocrit 30.5 % (40-54); Hemoglobin 9.2 g/dL (13.0-16.5); Mean Corp Hgb Conc 30.2 g/dL (32-36); Mean Corpuscular Hgb 29.1 pg (27.0-32.0); Mean Corpuscular Volume 96.5 fL (80-94); Mean Platelet Vol. 10.9 fl (6.2-12.0); Platelet Count 168 K/mm3 (150-450); RBC Distribution Width CV 15.5 % (11.6-14.6); RBC Distribution Width SD 54.5 fl (35.1-43.9); Red Blood Count 3.16 M/mm3 (4.6-6.2); White Blood Count 7.2 K/mm3 (4.4-11.0)
[2024-09-03 14:34] LABS: Anion Gap 6 (5-15); BUN 36 mg/dL (7-18); BUN/Creat Ratio 37.7 RATIO (10-20); Calcium,Total 9.1 mg/dL (8.5-10.1); Chloride 105 mmol/L (98-107); Creatinine, Serum 0.95 mg/dL (0.70-1.30); EST Glomerular Filtration Rate 80 mL/min (>60); Est Glom Filt Rate - Afr Amer 97 mL/min (>60); Glucose 209 mg/dL (74-106); Potassium 3.7 mmol/L (3.5-5.1); Sodium Level 140 mmol/L (136-145)
[2024-09-03 15:22] LABS: Erythrocyte Sedimentation Rate 30 mm/hr (0-20)
[2024-09-10 15:35] LABS: Anion Gap 4 (5-15); BUN 21 mg/dL (7-18); BUN/Creat Ratio 23.1 RATIO (10-20); Calcium,Total 8.7 mg/dL (8.5-10.1); Chloride 107 mmol/L (98-107); Creatinine, Serum 0.91 mg/dL (0.70-1.30); EST Glomerular Filtration Rate 85 mL/min (>60); Est Glom Filt Rate - Afr Amer 103 mL/min (>60); Glucose 137 mg/dL (74-106); Potassium 3.7 mmol/L (3.5-5.1); Sodium Level 140 mmol/L (136-145)
[2024-09-10 15:50] LABS: Erythrocyte Sedimentation Rate 19 mm/hr (0-20)
[2024-09-10 15:54] LABS: Hematocrit 30.3 % (40-54); Hemoglobin 9.3 g/dL (13.0-16.5); Mean Corp Hgb Conc 30.7 g/dL (32-36); Mean Corpuscular Hgb 29.7 pg (27.0-32.0); Mean Corpuscular Volume 96.8 fL (80-94); Mean Platelet Vol. 10.6 fl (6.2-12.0); Platelet Count 184 K/mm3 (150-450); RBC Distribution Width CV 16.7 % (11.6-14.6); RBC Distribution Width SD 57.2 fl (35.1-43.9); Red Blood Count 3.13 M/mm3 (4.6-6.2); White Blood Count 7.9 K/mm3 (4.4-11.0)
== END 2024-09-15 18:00 | disposition home or self-care (01) ==
LOC: HHLAB 15:14
PROVIDERS: PCP Family Medicine; Visit Provider Internal Medicine Infectious Disease
DX: L89.154 Pressure ulcer of sacral region, stage 4 (principal)
CPT/HCPCS: 80048; 85027; 85652

== ENCOUNTER 2024-09-17 13:02 | Outpatient (RCR) | payer MEDICARE, SELFPAY ==
[2024-09-17 13:15] LABS: Erythrocyte Sedimentation Rate 10 mm/hr (0-20)
[2024-09-17 13:16] LABS: Hematocrit 30.9 % (40-54); Hemoglobin 9.3 g/dL (13.0-16.5); Mean Corp Hgb Conc 30.1 g/dL (32-36); Mean Corpuscular Hgb 29.3 pg (27.0-32.0); Mean Corpuscular Volume 97.5 fL (80-94); Mean Platelet Vol. 10.9 fl (6.2-12.0); Platelet Count 151 K/mm3 (150-450); RBC Distribution Width CV 17.2 % (11.6-14.6); RBC Distribution Width SD 61.4 fl (35.1-43.9); Red Blood Count 3.17 M/mm3 (4.6-6.2); White Blood Count 6.4 K/mm3 (4.4-11.0)
[2024-09-17 13:37] LABS: Anion Gap 3 (5-15); BUN 28 mg/dL (7-18); BUN/Creat Ratio 34.6 RATIO (10-20); Calcium,Total 8.8 mg/dL (8.5-10.1); Chloride 110 mmol/L (98-107); Creatinine, Serum 0.81 mg/dL (0.70-1.30); EST Glomerular Filtration Rate 97 mL/min (>60); Est Glom Filt Rate - Afr Amer 118 mL/min (>60); Glucose 108 mg/dL (74-106); Potassium 3.6 mmol/L (3.5-5.1); Sodium Level 144 mmol/L (136-145)
== END 2024-10-16 23:59 ==
LOC: LABSPEC 13:02
PROVIDERS: PCP Family Medicine
DX: L89.154 Pressure ulcer of sacral region, stage 4 (principal)
CPT/HCPCS: 80048; 85027; 85652

== ENCOUNTER → 2024-10-01 | Outpatient (CLI) | payer MEDICARE, SELFPAY ==
[2024-10-01 12:54] LABS: Erythrocyte Sedimentation Rate 5 mm/hr (0-20)
[2024-10-01 12:56] LABS: Hemoglobin 9.9 g/dL (13.0-16.5); Mean Corpuscular Hgb 29.3 pg (27.0-32.0); Mean Corpuscular Volume 97.6 fL (80-94); Mean Platelet Vol. 10.5 fl (6.2-12.0); Platelet Count 111 K/mm3 (150-450); RBC Distribution Width CV 16.9 % (11.6-14.6); RBC Distribution Width SD 61.4 fl (35.1-43.9); Red Blood Count 3.38 M/mm3 (4.6-6.2); White Blood Count 7.4 K/mm3 (4.4-11.0)
[2024-10-01 13:33] LABS: Anion Gap 3 (5-15); BUN 28 mg/dL (7-18); Calcium,Total 8.2 mg/dL (8.5-10.1); Chloride 111 mmol/L (98-107); Creatinine, Serum 0.72 mg/dL (0.70-1.30); EST Glomerular Filtration Rate 111 mL/min (>60); Est Glom Filt Rate - Afr Amer 135 mL/min (>60); Glucose 169 mg/dL (74-106); Potassium 3.4 mmol/L (3.5-5.1); Sodium Level 141 mmol/L (136-145)
== END | disposition home or self-care (01) ==
LOC: HHLAB 12:44
PROVIDERS: PCP Family Medicine; Visit Provider Internal Medicine Infectious Disease
DX: L89.154 Pressure ulcer of sacral region, stage 4 (principal)
CPT/HCPCS: 80048; 85027; 85652

== ENCOUNTER 2024-10-03 13:45 | Outpatient (RCR) | payer MEDICARE, SELFPAY ==
[2024-09-16 00:54] VITALS: BP 121/74; PULSE 69; RESP 18; TEMP 35.8; BMI 31.6
[2024-09-19 13:38] VITALS: BP 123/56; PULSE 67; RESP 18; BMI 31.6
--- NOTE | 2024-09-19 17:09 | PCM.WC.PN ---
History of Present Illness Date of Service: 09/19/24 Chief Complaint: Follow-up on buttocks right and left heel wounds that have been going on for months. 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 He lays on his chair most of the day. And has developed 2 areas on his buttocks sores that have gotten bigger and they have been trying to close for months. Currently there is been using antibiotic ointment. Also has tried Silvadene creams and other things through his doctor Now he has been referred here to the wound center. Wound culture of left heel ulcer from 08/08/24 positive for MDRO Pseudomonas aeruginosa. Referral to infectious disease for treatment. MRI of Pelvis 08/16/24 - Sacral decubitus ulcer with sacrococcygeal osteomyelitis. Progress of Wound: The sacral ulcer has bone exposure. The bone is exposed and palpable. There is undermining and tunneling present. He is sleeping on the low air loss mattress. Left heel ulcer is showing some improvement, with less non viable tissue. Objective Data Objective Data Vital Signs: Vital Signs Temp Pulse Resp BP O2 Del Method 96.4 F L 67 18 123/56 H Room Air 09/16/24 00:54 09/19/24 13:38 09/19/24 13:38 09/19/24 13:38 09/19/24 13:38 Oxygen Delivery Method Room Air Weight: 220 lb 0.271 oz Body Mass Index (BMI) 31.6 Charges/Coding Procedures Integumentary 111xxx-113xx: 60922 Ginette musc/fascia 20 sq cm/< (sacral ulcer) Multi Select Codes Integumentary Integumentary CPT Codes: 67526 Ginette subq tissue 20 sq cm/< (left heel and left buttocks) Debridement Note Debridement Note Wound debrided: Sacral ulcer Laterality: Left Wound Grade/Stage: Stage IV Type of Debridement: Excisional debridement Anesthesia Used: 5% Lidocaine Gel Depth: Down to and including healthy tissue, in the subcutaneous layer, to muscle and to bone Percentage of wound debrided: 100 Instrument Used: 5mm curette Tissue Removed: Non viable tissue and slough into the muscle,bone palpable but not debrided Severity: Fat Layer Exposed Amount of bleeding with debridement: Mild Bleeding Controlled with: Compression and gauze Patient tolerated procedure: Patient tolerated procedure well Post-Debridement Measurements and Additional Note: Post-Debridement Measurements/Treatment - Nurse 1 - General Ulcer Assessment Start: 09/19/24 13:38 Freq: Status: Active Protocol: CHEL Activity Type Activity Date Activity User E-sign Co-sign Detail Recorded Client Recorded Date Recorded By Document 09/19/24 13:38 KW [id number] 09/19/24 13:54 09/19/24 13:38 WC - Today's Visit Information Type of service Follow-up Visit (Physician/ACCREDITATION COORDINATOR ) Arrival Mode Wheelchair Patient Identification Verified (Name & Yes ) Height and Weight Body Mass Index (BMI) 31.6 BMI Classification Obese Vital Signs Temperature Source Temporal Pulse Rate (60-100) 67 Pulse Location Monitor Respiratory Rate (12-18) 18 Respiratory rate source Observation Oxygen Delivery Method Room Air Blood Pressure (90/60-120/80) 123/56 H Blood Pressure Mean (mm Hg) 78 Source Monitor Position Sitting Blood Pressure Location Left Arm History Since Last Visit- (Skip if this is Patient's initial visit) Have you changed medications since your No last visit? Any new allergies or adverse reactions No Had a fall/change in ADL's that may No increase risk of falls Signs or symptoms of abuse and/or No neglect since last visit Have you been in the hospital since your No last visit? Has dressing in place as prescribed Yes Has compression in place as prescribed Yes Has offloadiing in place as prescribed Yes Experienced any changes in pain level or No management Left Footwear Regular Shoe Right Footwear Regular Shoe Pain Scale: 0-10 Numeric Is Patient Pain Free? Yes - Nurse 1 - General Ulcer Measurement Start: 09/19/24 13:38 Freq: Status: Active Protocol: Activity Type Activity Date Activity User E-sign Co-sign Detail Recorded Client Recorded Date Recorded By Document 09/19/24 13:38 TIM [id number] 09/19/24 13:54 09/19/24 13:38 Wound Center Nurse 1 4. LEFT BUTTOCK -Current Size (cm) - Length 2.5 -Current Size (cm) - Width 1.5 -Current Size (cm) - Depth 0.1 -Total Square Cm 3.75 -Date of Last Picture (Recall this 09/19/24 field) -Exudate Amt Medium -Exudate Type Serosanguineous -Wound Margin Distinct, Outline Attached -Granulation Amt Large (67-100%) -Granulation Quality [place] -Necrosis Amt Small (1-33%) -Necrotic Tissue Type Adherent Slough -Texture (Andreea-wound Skin Appearance) Assessed -Moisture (Andreea-wound Skin Appearance) Assessed -Color (Andreea-wound Skin Appearance) Assessed -Temperature (Andreea-wound Skin No Abnormality Appearance) (Pt Warm) -Tenderness on Palpation (Andreea-wound No Skin Appearance) -Ulcer Cleansing Rinsed/ Irrigated with Saline -Foul Odor after Cleansing No -Anesthetic Used 4% Lidocaine Solution #2 L Heel -Current Size (cm) - Length 4.8 -Current Size (cm) - Width 3.7 -Current Size (cm) - Depth 0.2 -Total Square Cm 17.76 -Date of Last Picture (Recall this 09/19/24 field) -Exudate Amt Medium -Exudate Type Serosanguineous -Wound Margin Distinct, Outline Attached -Granulation Amt Medium (34-66%) -Granulation Quality [place] -Necrosis Amt Medium (34-66%) -Necrotic Tissue Type Adherent Slough -Texture (Andreea-wound Skin Appearance) Assessed -Moisture (Andreea-wound Skin Appearance) Assessed -Color (Andreea-wound Skin Appearance) Assessed -Temperature (Andreea-wound Skin No Abnormality Appearance) (Pt Warm) -Tenderness on Palpation (Andreea-wound No Skin Appearance) -Ulcer Cleansing Rinsed/ Irrigated with Saline -Foul Odor after Cleansing No -Anesthetic Used 4% Lidocaine Solution #1 Sacral Cluster -Current Size (cm) - Length 3 -Current Size (cm) - Width 2 -Current Size (cm) - Depth 2 -Total Square Cm 6 -Date of Last Picture (Recall this 09/19/24 field) -Exudate Amt Large -Exudate Type Serosanguineous -Wound Margin Distinct, Outline Attached -Granulation Amt Large (67-100%) -Granulation Quality Red -Necrosis Amt Small (1-33%) -Necrotic Tissue Type Adherent Slough -Texture (Andreea-wound Skin Appearance) Assessed -Moisture (Andreea-wound Skin Appearance) Assessed, Maceration -Color (Andreea-wound Skin Appearance) Assessed -Temperature (Andreea-wound Skin No Abnormality Appearance) (Pt Warm) -Tenderness on Palpation (Andreea-wound No Skin Appearance) -Ulcer Cleansing Rinsed/ Irrigated with Saline -Foul Odor after Cleansing No -Anesthetic Used 4% Lidocaine Solution WC - Nurse 2 - General Ulcer CM Notes Start: 09/19/24 13:38 Freq: Status: Active Protocol: Activity Type Activity Date Activity User E-sign Co-sign Detail Recorded Client Recorded Date Recorded By Document 09/19/24 14:47 GM [id number] 09/19/24 14:58 GM 09/19/24 14:47 Wound Center Nurse 2 4. LEFT BUTTOCK -Time 14:49 -Correct Patient Yes -Correct Side, Site, Position Yes -Correct Procedure Yes -Procedure Performed Yes -Type of Procedure Debridement -Clinical Debridement Subcutaneous -Tissue Removed Subcutaneous -Post Debridement (cm) - Length 2.0 -Post Debridement (cm) - Width 1.5 -Post Debridement (cm) - Depth 1.0 -Total Square (Post) (cm) 3.00 -Area of Debridement (cm) - Length 2.0 -Area of Debridement (cm) - Width 1.5 -Total Square (Area) (cm) 3.00 -Tunneling No -Undermining/Tunneling No -Circular Undermining No -Wound/Ulcer Outcome Not Healed -Ulcer Cleansing Rinsed/ Irrigated with Saline -Foul Odor after Cleansing No -Bioengineered Tissue No -Bleeding Controlled with Pressure -Treatment Response Procedure Tolerated Well -Debridement - Subq, 1st 20sq cm No #2 L Heel -Time 14:50 -Correct Patient Yes -Correct Side, Site, Position Yes -Correct Procedure Yes -Procedure Performed Yes -Type of Procedure Debridement -Clinical Debridement Subcutaneous -Tissue Removed Subcutaneous -Post Debridement (cm) - Length 4.0 -Post Debridement (cm) - Width 4.2 -Post Debridement (cm) - Depth 0.3 -Total Square (Post) (cm) 16.80 -Area of Debridement (cm) - Length 4.0 -Area of Debridement (cm) - Width 4.2 -Total Square (Area) (cm) 16.80 -Tunneling No -Undermining/Tunneling No -Circular Undermining No -Wound/Ulcer Outcome Not Healed -Ulcer Cleansing Rinsed/ Irrigated with Saline -Foul Odor after Cleansing No -Bioengineered Tissue No -Bleeding Controlled with Pressure -Treatment Response Procedure Tolerated Well -Debridement - Subq, 1st 20sq cm Yes #1 Sacral Cluster -Time 14:50 -Correct Patient Yes -Correct Side, Site, Position Yes -Correct Procedure Yes -Procedure Performed Yes -Type of Procedure Debridement -Clinical Debridement Muscle / Fascia -Tissue Removed Muscle -Post Debridement (cm) - Length 3.5 -Post Debridement (cm) - Width 2.0 -Post Debridement (cm) - Depth 1.4 -Total Square (Post) (cm) 7.00 -Area of Debridement (cm) - Length 3.5 -Area of Debridement (cm) - Width 2.0 -Total Square (Area) (cm) 7.00 -Tunneling No -Undermining/Tunneling Yes -Undermining/Tunneling Starts (O'clock 1 ) -Undermining/Tunneling Ends (O'clock) 2 -Maximum Distance (cm) 4.0 -Wound/Ulcer Outcome Not Healed -Ulcer Cleansing Rinsed/ Irrigated with Saline -Foul Odor after Cleansing No -Bioengineered Tissue No -Bleeding Controlled with Pressure -Treatment Response Procedure Tolerated Well -Debridement - Muscle / Fascia, 1st Yes 20sq cm Pain Scale: 0-10 Numeric Is Patient Pain Free? Yes - Nurse 3 - General Ulcer D/C NN Start: 09/19/24 13:38 Freq: Status: Active Protocol: Activity Type Activity Date Activity User E-sign Co-sign Detail Recorded Client Recorded Date Recorded By Document 09/19/24 15:26 [id number] 09/19/24 15:27 KW 09/19/24 15:26 Wound Care Center Nurse 3 4. LEFT BUTTOCK -Primary Dressing Applied Aquacel AG 4x4 -Primary Dressing Covered/Secured with Dry Gauze -Aquacel AG 4x4 1 #2 L Heel -Other Dressing AQUACEL AG -Primary Dressing Covered/Secured with Dry Gauze & Roll Gauze, Secured with Tape #1 Sacral Cluster -Primary Dressing Applied Mepilex Border -Other Dressing DAKINS SOAKED GAUZE -Primary Dressing Covered/Secured with Dry Gauze -Mepilex Border 1 Left -Tubular Bandage Single Layer -Size of Tubigrip Used Size E -Size E ($) 1 Pain Scale: 0-10 Numeric Is Patient Pain Free? Yes - Visit Discharge Discharge Condition Stable Ambulatory Status Wheelchair Transportation Private Auto Medication Reconcilliation completed & No provided to patient/care provider Clinical Summary of Care Provided Yes Additional Wound Wound debrided: Left heel pressure ulcer Laterality: Left Wound Grade/Stage: Stage III Type of Debridement: Excisional debridement Anesthesia Used: 5% Lidocaine Gel Depth: in the subcutaneous layer Percentage of wound debrided: 100 Instrument Used: 5mm curette Tissue Removed: Non viable tissue and slough Severity: Fat Layer Exposed Bleeding Controlled with: Compression and gauze and Silver Nitrate Patient tolerated procedure: Patient tolerated procedure well Additional Wound Wound debrided: Skin tear proximal to sacarl ulcer Wound Grade/Stage: Stage II Type of Debridement: Excisional debridement Anesthesia Used: 5% Lidocaine Gel Depth: Down to and including healthy tissue and in the subcutaneous layer Percentage of wound debrided: 100 Instrument Used: 5mm curette Tissue Removed: Non viable tissue and slough Severity: Fat Layer Exposed Amount of bleeding with debridement: Mild Bleeding Controlled with: Pressure and Compression and gauze Patient tolerated procedure: Patient tolerated procedure well Assessment/Plan Assessment/Plan (1) Sacral decubitus ulcer, stage IV: CODE(S): L89.154 - Pressure ulcer of sacral region, stage 4 (2) Pressure ulcer of left heel, stage 3: CODE(S): L89.623 - Pressure ulcer of left heel, stage 3 (3) Mobility impaired: CODE(S): Z74.09 - Other reduced mobility (4) Type 2 diabetes mellitus: CODE(S): E11.9 - Type 2 diabetes mellitus without complications QUALIFIERS: Diabetes mellitus snf insulin use: without terminal clerk use Diabetes mellitus complication status: with circulatory complication Diabetes mellitus complication detail: with other circulatory complications Qualified Code(s): E11.59 - Type 2 diabetes mellitus with other circulatory complications (5) 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 Patient is very complicated medical history. He had been receiving Epifix (5 applications this far) to his left heel. His left heel developed a thick, dry scabbing present that, that was a significant change in appearance. Suspect that the patient has been putting a lot of pressure to this area. Wound care for the left heel ulcer,Aquacel-Ag covered with gauze daily ( unable to get refill of Santyl collagenase until mid Decmber, will place it nickel thickness daily covered with saline moistened gauze and ABD until they complete the Santyl). Wash the ulcer with soap and water at the time of the dressing change. Stressed that he needs to keep his heel elevated off the bed (he has a padded boot, but that, I believe is too much pressure). Reinforced how to lift lower leg, from the knee to the ankle to elevate foot off the bed so there is no pressure at all to the heel. He verbalized understanding. His sacral ulcer apply daily Dakins 0.25% moistened gauze dressing covered with ABD daily. At the time of the dressing change, the ulcer and the andreea wound need to be washed with soap and water. Skin tear that is proximal to sacral ulcer - place Aquacel-Ag daily and cover with gauze daily. Compression - Single tubigrip bilaterally. He has received his low air loss mattress. Stressed the importance of keeping the pressure off both his buttocks and his left heel. MRI was done 08/16/24. The impression of the sacral decubitus ulcer with sacrococcygeal osteomyelitis. Wound culture of left heel ulcer from 08/08/24 positive for MDRO Pseudomonas aeruginosa. Referral to infectious disease for treatment. He is met with Dr. Pedersen and was started on IV antibiotics. He has home health to assist with dressings and his will change them on the days home health is not there. Follow up two weeks.
--- NOTE | 2024-09-21 11:50 | WC ---
PHOTO 09/19/24 LEFT HEEL
--- NOTE | 2024-09-21 11:51 | WC ---
PHOTO 09/19/24 LEFT BUTTOCKS
--- NOTE | 2024-09-21 11:55 | WC ---
PHOTO 09/19/24 [facility]
[2024-10-03 13:51] VITALS: BP 145/64; PULSE 69; RESP 16; TEMP 36.4; BMI 31.6
--- NOTE | 2024-10-03 16:20 | PN.PCM_ITS ---
History of Present Illness Date of Service: 10/03/24 Chief Complaint: Follow-up on buttocks right and left heel wounds that have been going on for months. 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 He lays on his chair most of the day. And has developed 2 areas on his buttocks sores that have gotten bigger and they have been trying to close for months. Currently there is been using antibiotic ointment. Also has tried Silvadene creams and other things through his doctor Now he has been referred here to the wound center. Wound culture of left heel ulcer from 08/08/24 positive for MDRO Pseudomonas a eruginosa. Referral to infectious disease for treatment. MRI of Pelvis 08/16/24 - Sacral decubitus ulcer with sacrococcygeal osteomyelitis. Progress of Wound: The sacral ulcer with bone exposed and palpable into the muscle. There is undermining and tunneling present. There is maceration on the distal edge of this ulcer. The perineal ulcer (skin tear proximal to sacral ulcer) is smaller in size. He is sleeping on the low air loss mattress which is leaking air. Instructed them to call the company where they got the bed to have them come out and check for an air leak. Left heel ulcer is showing improvement, it is mostly pink with much less non viable tissue present. Objective Data Objective Data Vital Signs: Vital Signs Temp Pulse Resp BP O2 Del Method 97.5 F L 69 16 145/64 H Room Air 10/03/24 13:51 10/03/24 13:51 10/03/24 13:51 10/03/24 13:51 09/19/24 13:38 Oxygen Delivery Method Room Air Weight: 220 lb 0.271 oz Body Mass Index (BMI) 31.6 Charges/Coding Procedures Integumentary 111xxx-113xx: 53297 Ginette musc/fascia 20 sq cm/< (sacral ulcer) Multi Select Codes Integumentary Integumentary CPT Codes: 51711 Ginette subq tissue 20 sq cm/< (left heel and left buttocks) Debridement Note Debridement Note Wound debrided: Sacral ulcer Laterality: Left Wound Grade/Stage: Stage IV Type of Debridement: Excisional debridement Anesthesia Used: 5% Lidocaine Gel Depth: Down to and including healthy tissue, in the subcutaneous layer, to muscle and to bone Percentage of wound debrided: 100 Instrument Used: 5mm curette Tissue Removed: Non viable tissue and slough into the muscle,bone palpable but not debrided Severity: Fat Layer Exposed Amount of bleeding with debridement: Mild Bleeding Controlled with: Compression and gauze Patient tolerated procedure: Patient tolerated procedure well Post-Debridement Measurements and Additional Note: Post-Debridement Measurements/Treatment - Nurse 1 - General Ulcer Assessment Start: 09/19/24 13:38 Freq: Status: Active Protocol: CHEL Activity Type Activity Date Activity User E-sign Co-sign Detail Recorded Client Recorded Date Recorded By Document 09/19/24 13:38 KW [id number] 09/19/24 13:54 KW Document 10/03/24 13:51 CP [id number] 10/03/24 13:56 CP 09/19/24 10/03/24 13:38 13:51 - Today's Visit Information Type of service Follow-up Visit Follow-up Visit (Physician/HEALTH INFORMATION DIRECTOR (Physician/HEALTH INFORMATION DIRECTOR ) ) Arrival Mode Wheelchair Wheelchair Transfer Assistance None Patient Identification Verified (Name & Yes Yes ) Patient Requires Transmission-Based No Precautions Height and Weight Body Mass Index (BMI) 31.6 31.6 BMI Classification Obese Obese Vital Signs Temperature (97.8 F-99.1 F) 97.5 F L Temperature Source Temporal Temporal Pulse Rate (60-100) 67 69 Pulse Location Monitor Monitor Respiratory Rate (12-18) 18 16 Respiratory rate source Observation Observation Oxygen Delivery Method Room Air Blood Pressure (90/60-120/80) 123/56 H 145/64 H Blood Pressure Mean (mm Hg) 78 91 Source Monitor Monitor Position Sitting Left Lateral Blood Pressure Location Left Arm Right Arm History Since Last Visit- (Skip if this is Patient's initial visit) Have you changed medications since your No No last visit? Any new allergies or adverse reactions No No Had a fall/change in ADL's that may No No increase risk of falls Signs or symptoms of abuse and/or No No neglect since last visit Have you been in the hospital since your No No last visit? Has dressing in place as prescribed Yes Yes Has compression in place as prescribed Yes Yes Has offloadiing in place as prescribed Yes Yes Experienced any changes in pain level or No management Left Footwear Regular Shoe Right Footwear Regular Shoe Pain Scale: 0-10 Numeric Is Patient Pain Free? Yes Yes WC - Nurse 1 - General Ulcer Measurement Start: 09/19/24 13:38 Freq: Status: Active Protocol: Activity Type Activity Date Activity User E-sign Co-sign Detail Recorded Client Recorded Date Recorded By Document 09/19/24 13:38 KW [id number] 09/19/24 13:54 KW Document 10/03/24 13:51 CP [id number] 10/03/24 13:56 CP 09/19/24 10/03/24 13:38 13:51 Wound Center Nurse 1 4. LEFT BUTTOCK -Current Size (cm) - Length 2.5 1 -Current Size (cm) - Width 1.5 1 -Current Size (cm) - Depth 0.1 0.1 -Total Square Cm 3.75 1 -Date of Last Picture (Recall this 09/19/24 field) -Epithelialization Small 1-33% -Exudate Amt Medium Small -Exudate Type Serosanguineous Serosanguineous -Wound Margin Distinct, Outline Attached -Granulation Amt Large (67-100%) Large (67-100%) -Granulation Quality [place] -Necrosis Amt Small (1-33%) -Necrotic Tissue Type Adherent Slough -Structure Exposed N/A -Texture ([place]-wound Skin Appearance) Assessed No Abnormality -Moisture ([place]-wound Skin Appearance) Assessed No Abnormality -Color ([place]-wound Skin Appearance) Assessed No Abnormality -Temperature ([place]-wound Skin No Abnormality No Abnormality Appearance) (Pt Warm) (Pt Warm) -Tenderness on Palpation ([place]-wound No Skin Appearance) -Ulcer Cleansing Rinsed/ Soap and Water Irrigated with Saline -Foul Odor after Cleansing No No -Anesthetic Used 4% Lidocaine 5% Lidocaine Solution Gel #2 L Heel -Current Size (cm) - Length 4.8 3.9 -Current Size (cm) - Width 3.7 4.4 -Current Size (cm) - Depth 0.2 0.2 -Total Square Cm 17.76 17.16 -Date of Last Picture (Recall this 09/19/24 field) -Exudate Amt Medium -Exudate Type Serosanguineous -Wound Margin Distinct, Flat & Intact Outline Attached -Granulation Amt Medium (34-66%) Medium (34-66%) -Granulation Quality [place] -Necrosis Amt Medium (34-66%) Medium (34-66%) -Necrotic Tissue Type Adherent Slough Adherent Slough -Texture ([place]-wound Skin Appearance) Assessed No Abnormality -Moisture ([place]-wound Skin Appearance) Assessed No Abnormality -Color ([place]-wound Skin Appearance) Assessed No Abnormality -Temperature ([place]-wound Skin No Abnormality No Abnormality Appearance) (Pt Warm) (Pt Warm) -Tenderness on Palpation ([place]-wound No Skin Appearance) -Ulcer Cleansing Rinsed/ Soap and Water Irrigated with Saline -Foul Odor after Cleansing No -Anesthetic Used 4% Lidocaine 5% Lidocaine Solution Gel #1 Sacral Cluster -Current Size (cm) - Length 3 3 -Current Size (cm) - Width 2 1.6 -Current Size (cm) - Depth 2 1.5 -Total Square Cm 6 4.8 -Date of Last Picture (Recall this 09/19/24 field) -Tunneling Yes -Tunneling Position (O'clock) 1 -Tunneling Distance (cm) 4 -Exudate Amt Large Small -Exudate Type Serosanguineous Serosanguineous -Wound Margin Distinct, Outline Attached -Granulation Amt Large (67-100%) Medium (34-66%) -Granulation Quality [place] -Slough/Fibrin Yes -Necrosis Amt Small (1-33%) Small (1-33%) -Necrotic Tissue Type Adherent Slough Adherent Slough -Texture ([place]-wound Skin Appearance) Assessed No Abnormality -Moisture ([place]-wound Skin Appearance) Assessed, No Abnormality Maceration -Color ([place]-wound Skin Appearance) Assessed No Abnormality -Temperature ([place]-wound Skin No Abnormality No Abnormality Appearance) (Pt Warm) (Pt Warm) -Tenderness on Palpation ([place]-wound No Skin Appearance) -Ulcer Cleansing Rinsed/ Soap and Water Irrigated with Saline -Foul Odor after Cleansing No -Anesthetic Used 4% Lidocaine 5% Lidocaine Solution Gel WC - Nurse 2 - General Ulcer CM Notes Start: 09/19/24 13:38 Freq: Status: Active Protocol: Activity Type Activity Date Activity User E-sign Co-sign Detail Recorded Client Recorded Date Recorded By Document 09/19/24 14:47 [id number] 09/19/24 14:58 Document 10/03/24 14:19 [id number] 10/03/24 14:30 12/04/24 12/18/24 14:47 14:19 Wound Center Nurse 2 4. LEFT BUTTOCK -Time 14:49 14:28 -Correct Patient Yes Yes -Correct Side, Site, Position Yes Yes -Correct Procedure Yes Yes -Procedure Performed Yes Yes -Type of Procedure Debridement Debridement -Clinical Debridement Subcutaneous Subcutaneous -Tissue Removed Subcutaneous Subcutaneous -Post Debridement (cm) - Length 2.0 1.5 -Post Debridement (cm) - Width 1.5 1.0 -Post Debridement (cm) - Depth 1.0 0.1 -Total Square (Post) (cm) 3.00 1.50 -Area of Debridement (cm) - Length 2.0 1.5 -Area of Debridement (cm) - Width 1.5 1.0 -Total Square (Area) (cm) 3.00 1.50 -Tunneling No No -Undermining/Tunneling No No -Circular Undermining No No -Wound/Ulcer Outcome Not Healed Not Healed -Ulcer Cleansing Rinsed/ Not Cleansed Irrigated with Saline -Foul Odor after Cleansing No No -Bioengineered Tissue No No -Bleeding Controlled with Pressure Pressure -Treatment Response Procedure Procedure Tolerated Well Tolerated Well -Debridement - Open, 1st 20sq cm No -Debridement - Subq, 1st 20sq cm No Yes -Debridement - Muscle / Fascia, 1st No 20sq cm -Debridement - Bone, 1st 20sq cm No #2 L Heel -Time 14:50 14:19 -Correct Patient Yes Yes -Correct Side, Site, Position Yes Yes -Correct Procedure Yes Yes -Procedure Performed Yes Yes -Type of Procedure Debridement Debridement -Clinical Debridement Subcutaneous Subcutaneous -Tissue Removed Subcutaneous Subcutaneous -Post Debridement (cm) - Length 4.0 4.5 -Post Debridement (cm) - Width 4.2 4.2 -Post Debridement (cm) - Depth 0.3 0.1 -Total Square (Post) (cm) 16.80 18.90 -Area of Debridement (cm) - Length 4.0 4.5 -Area of Debridement (cm) - Width 4.2 4.2 -Total Square (Area) (cm) 16.80 18.90 -Tunneling No No -Undermining/Tunneling No No -Circular Undermining No No -Wound/Ulcer Outcome Not Healed Not Healed -Ulcer Cleansing Rinsed/ Rinsed/ Irrigated with Irrigated with Saline Saline -Foul Odor after Cleansing No No -Bioengineered Tissue No No -Bleeding Controlled with Pressure Pressure,Silver Nitrate -Treatment Response Procedure Procedure Tolerated Well Tolerated Well -Debridement - Subq, 1st 20sq cm Yes No #1 Sacral Cluster -Time 14:50 14:23 -Correct Patient Yes Yes -Correct Side, Site, Position Yes Yes -Correct Procedure Yes Yes -Procedure Performed Yes Yes -Type of Procedure Debridement Debridement -Clinical Debridement Muscle / Fascia Muscle / Fascia -Tissue Removed Muscle Muscle -Post Debridement (cm) - Length 3.5 3.2 -Post Debridement (cm) - Width 2.0 2.0 -Post Debridement (cm) - Depth 1.4 1.4 -Total Square (Post) (cm) 7.00 6.40 -Area of Debridement (cm) - Length 3.5 3.2 -Area of Debridement (cm) - Width 2.0 2.0 -Total Square (Area) (cm) 7.00 6.40 -Tunneling No Yes -Tunneling Position (O'clock) 2 -Tunneling Distance (cm) 4.4 -Undermining/Tunneling Yes No -Undermining/Tunneling Starts (O'clock 1 ) -Undermining/Tunneling Ends (O'clock) 2 -Maximum Distance (cm) 4.0 -Circular Undermining No -Wound/Ulcer Outcome Not Healed Not Healed -Ulcer Cleansing Rinsed/ Rinsed/ Irrigated with Irrigated with Saline Saline -Foul Odor after Cleansing No No -Bioengineered Tissue No No -Bleeding Controlled with Pressure Pressure -Treatment Response Procedure Procedure Tolerated Well Tolerated Well -Debridement - Muscle / Fascia, 1st Yes Yes 20sq cm Pain Scale: 0-10 Numeric Is Patient Pain Free? Yes Yes - Nurse 3 - General Ulcer D/C NN Start: 09/19/24 13:38 Freq: Status: Active Protocol: Activity Type Activity Date Activity User E-sign Co-sign Detail Recorded Client Recorded Date Recorded By Document 09/19/24 15:26 KW [id number] 09/19/24 15:27 KW Document 10/03/24 15:06 DL [id number] 10/03/24 15:09 DL 09/19/24 10/03/24 15:26 15:06 Wound Care Center Nurse 3 4. LEFT BUTTOCK -Ulcer Cleansing Soap and Water -Foul Odor after Cleansing No -Primary Dressing Applied Aquacel AG 4x4 Mepilex Border -Other Dressing DAKINS -Primary Dressing Covered/Secured with Dry Gauze -Aquacel AG 4x4 1 -Mepilex Border 1 #2 L Heel -Ulcer Cleansing Rinsed/ Irrigated with Saline -Foul Odor after Cleansing No -Primary Dressing Applied Fibracol Plus 4x4 -Other Dressing AQUACEL AG -Primary Dressing Covered/Secured with Dry Gauze & Dry Gauze & Roll Gauze, Roll Gauze, Secured with Secured with Tape Tape -Fibracol Plus 4x4 1 #1 Sacral Cluster -Ulcer Cleansing Soap and Water -Foul Odor after Cleansing No -Primary Dressing Applied Mepilex Border -Other Dressing DAKINS SOAKED DAKINS, MEPILEX GAUZE -Primary Dressing Covered/Secured with Dry Gauze -Mepilex Border 1 Left -Tubular Bandage Single Layer Double Layer -Size of Tubigrip Used Size E Size E -Size E ($) 1 2 Treatment Response Procedure Tolerated Well Pain Scale: 0-10 Numeric Is Patient Pain Free? Yes Yes WC - Visit Discharge Discharge Condition Stable Stable Ambulatory Status Wheelchair Walker Transportation Private Auto Private Auto Medication Reconcilliation completed & No provided to patient/care provider Clinical Summary of Care Provided Yes Facility Type Home Health Orders Sent Yes Additional Wound Wound debrided: Left heel pressure ulcer Laterality: Left Wound Grade/Stage: Stage III Type of Debridement: Excisional debridement Anesthesia Used: 5% Lidocaine Gel Depth: in the subcutaneous layer Percentage of wound debrided: 100 Instrument Used: 5mm curette Tissue Removed: Non viable tissue and slough Severity: Fat Layer Exposed Bleeding Controlled with: Compression and gauze and Silver Nitrate Patient tolerated procedure: Patient tolerated procedure well Additional Wound Wound debrided: Skin tear proximal to sacarl ulcer (Perineum) Wound Grade/Stage: Stage II Type of Debridement: Excisional debridement Anesthesia Used: 5% Lidocaine Gel Depth: Down to and including healthy tissue and in the subcutaneous layer Percentage of wound debrided: 100 Instrument Used: 5mm curette Tissue Removed: Non viable tissue and slough Severity: Fat Layer Exposed Amount of bleeding with debridement: Mild Bleeding Controlled with: Pressure and Compression and gauze Patient tolerated procedure: Patient tolerated procedure well Assessment/Plan Assessment/Plan (1) Sacral decubitus ulcer, stage IV: CODE(S): L89.154 - Pressure ulcer of sacral region, stage 4 (2) Pressure ulcer of left heel, stage 3: CODE(S): L89.623 - Pressure ulcer of left heel, stage 3 (3) Mobility impaired: CODE(S): Z74.09 - Other reduced mobility (4) Type 2 diabetes mellitus: CODE(S): E11.9 - Type 2 diabetes mellitus without complications QUALIFIERS: Diabetes mellitus residential insulin use: without residential use Diabetes mellitus complication status: with circulatory complication Diabetes mellitus complication detail: with other circulatory complications Qualified Code(s): E11.59 - Type 2 diabetes mellitus with other circulatory complications (5) 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 Patient is very complicated medical history. He had been receiving Epifix (5 applications this far) to his left heel. His left heel developed a thick, dry scabbing present that, that was a significant change in appearance. Suspect that the patient has been putting a lot of pressure to this area. Wound care for the left heel ulcer,Aquacel-Ag covered with gauze daily, until he gets the refill of Santyl collagenase later this week, then it will be Santyl placed a nickel thickness daily covered with saline moistened gauze and ABD daily.. Wash the ulcer with soap and water at the time of the dressing change. His sacral ulcer apply daily Dakins 0.25% moistened gauze dressing covered with ABD daily. At the time of the dressing change, the ulcer and the kenroy wound need to be washed with soap and water. Skin tear that is proximal to sacral ulcer - place Fibrocol + daily and cover with gauze daily. Stressed that he needs to keep his heel elevated off the bed (he has a padded boot, but that, I believe is too much pressure). Reinforced how to lift lower leg, from the knee to the ankle to elevate foot off the bed so there is no pressure at all to the heel. He verbalized understanding. Compression - Increase to Double tubigrip on left. He wears a compression stocking on the right. He has received his low air loss mattress which is leaking air, instructed to contact the distributor to come evaluated it. MRI was done 08/16/24. The impression of the sacral decubitus ulcer with sacrococcygeal osteomyelitis. Wound culture of left heel ulcer from 08/08/24 positive for MDRO Pseudomonas aeruginosa. Referral to infectious disease for treatment. He is met with Dr. Pedersen and was started on IV antibiotics which he will conplet 10/08/24. He has home health to assist with dressings and his will change them on the days home health is not there. Follow up three weeks, per patient request due to the holidays.
== END 2024-10-16 23:59 | disposition home or self-care (01) ==
LOC: WC 13:45
PROVIDERS: PCP Family Medicine; Referring Provider Family Medicine; Visit Provider Nurse Practitioner Family
DX: L89.154 Pressure ulcer of sacral region, stage 4 (principal); L89.623 Pressure ulcer of left heel, stage 3; M46.28 Osteomyelitis of vertebra, sacral and sacrococcygeal region; C91.90 Lymphoid leukemia, unspecified not having achieved remission; E11.69 Type 2 diabetes mellitus with other specified complication; Z16.24 Resistance to multiple antibiotics; S31.801A Laceration without foreign body of unspecified buttock, initial encounter; B96.5 Pseudomonas (aeruginosa) (mallei) (pseudomallei) as the cause of diseases classified elsewhere; X58.XXXA Exposure to other specified factors, initial encounter
CPT/HCPCS: 11042; 11043

== ENCOUNTER 2024-10-08 09:55 | Outpatient (RCR) | payer MEDICARE, SELFPAY ==
[2024-09-24 16:18] LABS: Hematocrit 32.9 % (40-54); Hemoglobin 9.8 g/dL (13.0-16.5); Mean Corp Hgb Conc 29.8 g/dL (32-36); Mean Corpuscular Hgb 29.3 pg (27.0-32.0); Mean Corpuscular Volume 98.5 fL (80-94); Mean Platelet Vol. 11.3 fl (6.2-12.0); Platelet Count 126 K/mm3 (150-450); RBC Distribution Width CV 17.2 % (11.6-14.6); RBC Distribution Width SD 61.9 fl (35.1-43.9); Red Blood Count 3.34 M/mm3 (4.6-6.2); White Blood Count 5.8 K/mm3 (4.4-11.0)
[2024-09-24 16:31] LABS: Anion Gap 5 (5-15); BUN 33 mg/dL (7-18); BUN/Creat Ratio 36.7 RATIO (10-20); Calcium,Total 9.3 mg/dL (8.5-10.1); Chloride 110 mmol/L (98-107); EST Glomerular Filtration Rate 86 mL/min (>60); Est Glom Filt Rate - Afr Amer 104 mL/min (>60); Glucose 144 mg/dL (74-106); Potassium 3.5 mmol/L (3.5-5.1); Sodium Level 145 mmol/L (136-145)
[2024-09-24 16:34] LABS: Erythrocyte Sedimentation Rate 10 mm/hr (0-20)
[2024-10-08 10:23] LABS: Hemoglobin 10.6 g/dL (13.0-16.5); Mean Corp Hgb Conc 30.3 g/dL (32-36); Mean Corpuscular Hgb 29.1 pg (27.0-32.0); Mean Corpuscular Volume 96.2 fL (80-94); Mean Platelet Vol. 10.6 fl (6.2-12.0); Platelet Count 142 K/mm3 (150-450); RBC Distribution Width CV 16.2 % (11.6-14.6); RBC Distribution Width SD 57.9 fl (35.1-43.9); Red Blood Count 3.64 M/mm3 (4.6-6.2); White Blood Count 7.2 K/mm3 (4.4-11.0)
[2024-10-08 10:36] LABS: Erythrocyte Sedimentation Rate 11 mm/hr (0-20)
[2024-10-08 10:38] LABS: Anion Gap 3 (5-15); BUN 30 mg/dL (7-18); BUN/Creat Ratio 31.2 RATIO (10-20); Calcium,Total 9.3 mg/dL (8.5-10.1); Chloride 109 mmol/L (98-107); Creatinine, Serum 0.96 mg/dL (0.70-1.30); EST Glomerular Filtration Rate 80 mL/min (>60); Est Glom Filt Rate - Afr Amer 96 mL/min (>60); Glucose 90 mg/dL (74-106); Potassium 3.7 mmol/L (3.5-5.1); Sodium Level 141 mmol/L (136-145)
== END 2024-10-08 18:00 | disposition home or self-care (01) ==
LOC: HHLAB 09:55
PROVIDERS: PCP Family Medicine; Visit Provider Internal Medicine Infectious Disease
DX: L89.154 Pressure ulcer of sacral region, stage 4 (principal)
CPT/HCPCS: 80048; 85027; 85652

== ENCOUNTER 2024-11-14 13:15 | Outpatient (RCR) | payer MEDICARE, SELFPAY ==
[2024-10-17 00:48] VITALS: BP 121/74; PULSE 69; RESP 18; TEMP 35.8; BMI 31.6
[2024-10-24 13:13] VITALS: BP 119/65; PULSE 76; RESP 18; TEMP 35.4; BMI 31.6
--- NOTE | 2024-10-24 14:28 | PCM.WC.PN ---
History of Present Illness Date of Service: 10/24/24 Chief Complaint: Follow-up on buttocks right and left heel wounds that have been going on for months. 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 He lays on his chair most of the day. And has developed 2 areas on his buttocks sores that have gotten bigger and they have been trying to close for months. Currently there is been using antibiotic ointment. Also has tried Silvadene creams and other things through his doctor Now he has been referred here to the wound center. Wound culture of left heel ulcer from 08/08/24 positive for MDRO Pseudomonas aeruginosa. Referral to infectious disease for treatment. MRI of Pelvis 08/16/24 - Sacral decubitus ulcer with sacrococcygeal osteomyelitis. Progress of Wound: He fell last week and fractured his wrist. The sacral ulcer with bone palpable but covered this week with granulation tissue. There is undermining present. There is epibole of the edges of the ulcer. The perineal ulcer (skin tear proximal to sacral ulcer) is smaller in size. He is sleeping on the low air loss mattress which is leaking air. Instructed them to call the company where they got the bed to have them come out and check for an air leak. Left heel ulcer is stable. The wound bed is pink but there continues to be slough present. Objective Data Objective Data Vital Signs: Vital Signs Temp Pulse Resp BP 95.8 F L 76 18 119/65 10/24/24 13:13 10/24/24 13:13 10/24/24 13:13 10/24/24 13:13 Weight: 220 lb 0.271 oz Body Mass Index (BMI) 31.6 Charges/Coding Procedures Integumentary 111xxx-113xx: 64321 Ginette subq tissue 20 sq cm/< (left heel and skin tear) Multi Select Codes Integumentary Integumentary CPT Codes: 88874 Ginette musc/fascia 20 sq cm/< (left ischial ulcer) Debridement Note Debridement Note Wound debrided: Sacral ulcer Laterality: Left Wound Grade/Stage: Stage IV Type of Debridement: Excisional debridement Anesthesia Used: 5% Lidocaine Gel Depth: Down to and including healthy tissue, in the subcutaneous layer, to muscle and to bone Percentage of wound debrided: 100 Instrument Used: 5mm curette Tissue Removed: Non viable tissue and slough into the muscle Severity: Fat Layer Exposed Amount of bleeding with debridement: Mild Bleeding Controlled with: Compression and gauze Patient tolerated procedure: Patient tolerated procedure well Post-Debridement Measurements and Additional Note: Post-Debridement Measurements/Treatment - Nurse 1 - General Ulcer Assessment Start: 10/24/24 13:12 Freq: Status: Active Protocol: LOWEXT Activity Type Activity Date Activity User E-sign Co-sign Detail Recorded Client Recorded Date Recorded By Document 10/24/24 13:13 DL [id number] 10/24/24 13:27 DL 10/24/24 13:13 WC - Today's Visit Information Type of service Follow-up Visit (Physician/[employer]X [employer]OCIATE ATTORNEY ) Arrival Mode Wheelchair Patient Identification Verified (Name & Yes ) Patient Requires Transmission-Based Yes Precautions Safety Precautions Fall Prevention Height and Weight Body Mass Index (BMI) 31.6 BMI Classification Obese Vital Signs Temperature (97.8 F-99.1 F) 95.8 F L Temperature Source Temporal Pulse Rate (60-100) 76 Pulse Location Monitor Respiratory Rate (12-18) 18 Respiratory rate source Observation Blood Pressure (90/60-120/80) 119/65 Blood Pressure Mean 83 Source Monitor History Since Last Visit- (Skip if this is Patient's initial visit) Have you changed medications since your No last visit? Any new allergies or adverse reactions No Had a fall/change in ADL's that may Yes increase risk of falls Signs or symptoms of abuse and/or No neglect since last visit Have you been in the hospital since your No last visit? Has dressing in place as prescribed Yes Has compression in place as prescribed Yes Has offloadiing in place as prescribed Yes Experienced any changes in pain level or No management Pain Scale: 0-10 Numeric Is Patient Pain Free? Yes - Nurse 1 - General Ulcer Measurement Start: 10/24/24 13:12 Freq: Status: Active Protocol: Activity Type Activity Date Activity User E-sign Co-sign Detail Recorded Client Recorded Date Recorded By Document 10/24/24 13:13 DL [id number] 10/24/24 13:27 DL 10/24/24 13:13 Wound Center Nurse 1 4. LEFT BUTTOCK -Combined with other wound No -Current Size (cm) - Length 0.5 -Current Size (cm) - Width 0.5 -Current Size (cm) - Depth 0.1 -Total Square Cm 0.25 -Tunneling No -Undermining/Tunneling No -Circular Undermining No -Exudate Amt Medium -Exudate Type Serosanguineous -Wound Margin Distinct, Outline Attached -Granulation Amt None Present (0 %) -Slough/Fibrin Yes -Necrosis Amt Large (67-100%) -Necrotic Tissue Type Adherent Slough -Texture (Andreea-wound Skin Appearance) Assessed, Scarring -Moisture (Andreea-wound Skin Appearance) Assessed -Color (Andreea-wound Skin Appearance) Assessed, Erythema -Temperature (Andreea-wound Skin No Abnormality Appearance) (Pt Warm) -Tenderness on Palpation (Andreea-wound No Skin Appearance) -Ulcer Cleansing Rinsed/ Irrigated with Saline -Foul Odor after Cleansing No -Anesthetic Used 4% Lidocaine Solution #2 L Heel -Combined with other wound No -Current Size (cm) - Length 4.5 -Current Size (cm) - Width 3.6 -Current Size (cm) - Depth 0.1 -Total Square Cm 16.20 -Epithelialization None Present -Tunneling No -Undermining/Tunneling No -Circular Undermining No -Exudate Amt Medium -Exudate Type Serosanguineous -Wound Margin Distinct, Outline Attached -Granulation Amt Medium (34-66%) -Granulation Quality Pale,Red -Slough/Fibrin Yes -Necrosis Amt Medium (34-66%) -Necrotic Tissue Type Adherent Slough -Texture (Andreea-wound Skin Appearance) Assessed -Moisture (Andreea-wound Skin Appearance) Assessed -Color (Andreea-wound Skin Appearance) Assessed -Temperature (Andreea-wound Skin No Abnormality Appearance) (Pt Warm) -Tenderness on Palpation (Andreea-wound No Skin Appearance) -Ulcer Cleansing Rinsed/ Irrigated with Saline -Foul Odor after Cleansing No -Anesthetic Used 4% Lidocaine Solution #1 Sacral Cluster -Combined with other wound No -Current Size (cm) - Length 2.8 -Current Size (cm) - Width 1.7 -Current Size (cm) - Depth 2 -Total Square Cm 4.76 -Undermining/Tunneling Yes -Undermining/Tunneling Starts (O'clock 1 ) -Undermining/Tunneling Ends (O'clock) 4 -Maximum Distance (cm) 4 -Circular Undermining No -Exudate Amt Medium -Exudate Type Serosanguineous -Wound Margin Thickened & Rolled Under -Granulation Amt Large (67-100%) -Granulation Quality Red -Slough/Fibrin Yes -Necrosis Amt Small (1-33%) -Necrotic Tissue Type Adherent Slough -Texture (Andreea-wound Skin Appearance) Assessed -Moisture (Andreea-wound Skin Appearance) Assessed, Maceration -Color (Andreea-wound Skin Appearance) Assessed -Temperature (Andreea-wound Skin No Abnormality Appearance) (Pt Warm) -Tenderness on Palpation (Andreea-wound No Skin Appearance) -Ulcer Cleansing Rinsed/ Irrigated with Saline -Foul Odor after Cleansing No -Anesthetic Used 4% Lidocaine Solution Left Ankle (cm) 22.1 WC - Nurse 2 - General Ulcer CM Notes Start: 10/24/24 13:12 Freq: Status: Active Protocol: Activity Type Activity Date Activity User E-sign Co-sign Detail Recorded Client Recorded Date Recorded By Document 10/24/24 13:47 GM [id number] 10/24/24 13:57 GM 10/24/24 13:47 Wound Center Nurse 2 4. LEFT BUTTOCK -Time 13:47 -Correct Patient Yes -Correct Side, Site, Position Yes -Correct Procedure Yes -Procedure Performed Yes -Type of Procedure Debridement -Clinical Debridement Subcutaneous -Tissue Removed Subcutaneous -Post Debridement (cm) - Length 0.5 -Post Debridement (cm) - Width 0.8 -Post Debridement (cm) - Depth 0.1 -Total Square (Post) (cm) 0.40 -Area of Debridement (cm) - Length 0.5 -Area of Debridement (cm) - Width 0.8 -Total Square (Area) (cm) 0.40 -Tunneling No -Undermining/Tunneling No -Circular Undermining No -Wound/Ulcer Outcome Not Healed -Ulcer Cleansing Rinsed/ Irrigated with Saline -Foul Odor after Cleansing No -Bioengineered Tissue No -Bleeding Controlled with Pressure -Treatment Response Procedure Tolerated Well -Debridement - Subq, 1st 20sq cm No #2 L Heel -Time 13:49 -Correct Patient Yes -Correct Side, Site, Position Yes -Correct Procedure Yes -Procedure Performed Yes -Type of Procedure Debridement -Clinical Debridement Subcutaneous -Tissue Removed Subcutaneous -Post Debridement (cm) - Length 4.5 -Post Debridement (cm) - Width 4.0 -Post Debridement (cm) - Depth 0.1 -Total Square (Post) (cm) 18.00 -Area of Debridement (cm) - Length 4.5 -Area of Debridement (cm) - Width 4.0 -Total Square (Area) (cm) 18.00 -Tunneling No -Undermining/Tunneling No -Circular Undermining No -Wound/Ulcer Outcome Not Healed -Ulcer Cleansing Rinsed/ Irrigated with Saline -Foul Odor after Cleansing No -Bioengineered Tissue No -Bleeding Controlled with Pressure -Treatment Response Procedure Tolerated Well -Debridement - Subq, 1st 20sq cm Yes #1 Sacral Cluster -Time 13:49 -Correct Patient Yes -Correct Side, Site, Position Yes -Correct Procedure Yes -Procedure Performed Yes -Type of Procedure Debridement -Clinical Debridement Muscle / Fascia -Tissue Removed Muscle -Post Debridement (cm) - Length 3.0 -Post Debridement (cm) - Width 2.1 -Post Debridement (cm) - Depth 1.2 -Total Square (Post) (cm) 6.30 -Area of Debridement (cm) - Length 3.0 -Area of Debridement (cm) - Width 2.1 -Total Square (Area) (cm) 6.30 -Tunneling Yes -Tunneling Position (O'clock) 2 -Tunneling Distance (cm) 4.3 -Undermining/Tunneling No -Circular Undermining No -Wound/Ulcer Outcome Not Healed -Ulcer Cleansing Rinsed/ Irrigated with Saline -Foul Odor after Cleansing No -Bioengineered Tissue No -Bleeding Controlled with Pressure -Treatment Response Procedure Tolerated Well -Debridement - Muscle / Fascia, 1st Yes 20sq cm Pain Scale: 0-10 Numeric Is Patient Pain Free? Yes - Nurse 3 - General Ulcer D/C NN Start: 10/24/24 13:12 Freq: Status: Active Protocol: Activity Type Activity Date Activity User E-sign Co-sign Detail Recorded Client Recorded Date Recorded By Document 10/24/24 14:02 DL [id number] 10/24/24 14:10 DL 10/24/24 14:02 Wound Care Center Nurse 3 4. LEFT BUTTOCK -Ulcer Cleansing Soap and Water -Foul Odor after Cleansing No -Other Dressing aquacel AG -Primary Dressing Covered/Secured with Dry Gauze #2 L Heel -Ulcer Cleansing Rinsed/ Irrigated with Saline -Foul Odor after Cleansing No -Other Dressing aquacel ag -Primary Dressing Covered/Secured with Dry Gauze & Roll Gauze, Secured with Tape -Other Covering Padding #1 Sacral Cluster -Ulcer Cleansing Rinsed/ Irrigated with Saline -Primary Dressing Applied Mepilex Border -Other Dressing aquacel AG -Primary Dressing Covered/Secured with Dry Gauze -Aquacel AG 4x4 1 -Mepilex Border 1 Left -Tubular Bandage Double Layer -Size of Tubigrip Used Size E -Size E ($) 2 Treatment Response Procedure Tolerated Well Pain Scale: 0-10 Numeric Is Patient Pain Free? Yes WC - Visit Discharge Discharge Condition Stable Ambulatory Status Wheelchair Transportation [facility] Facility Type Home Health Orders Sent Yes Additional Wound Wound debrided: Left heel pressure ulcer Laterality: Left Wound Grade/Stage: Stage III Type of Debridement: Excisional debridement Anesthesia Used: 5% Lidocaine Gel Depth: in the subcutaneous layer Percentage of wound debrided: 100 Instrument Used: 5mm curette Tissue Removed: Non viable tissue and slough Severity: Fat Layer Exposed Bleeding Controlled with: Compression and gauze Patient tolerated procedure: Patient tolerated procedure well Additional Wound Wound debrided: Skin tear proximal to sacarl ulcer (Perineum) Wound Grade/Stage: Stage II Type of Debridement: Excisional debridement Anesthesia Used: 5% Lidocaine Gel Depth: Down to and including healthy tissue and in the subcutaneous layer Percentage of wound debrided: 100 Instrument Used: 3mm curette Tissue Removed: Non viable tissue and slough Severity: Fat Layer Exposed Amount of bleeding with debridement: Mild Bleeding Controlled with: Pressure and Compression and gauze Patient tolerated procedure: Patient tolerated procedure well Assessment/Plan Assessment/Plan (1) Sacral decubitus ulcer, stage IV: CODE(S): L89.154 - Pressure ulcer of sacral region, stage 4 (2) Pressure ulcer of left heel, stage 3: CODE(S): L89.623 - Pressure ulcer of left heel, stage 3 (3) Mobility impaired: CODE(S): Z74.09 - Other reduced mobility (4) Type 2 diabetes mellitus: CODE(S): E11.9 - Type 2 diabetes mellitus without complications QUALIFIERS: Diabetes mellitus complication detail: with other circulatory complications Diabetes mellitus complication status: with circulatory complication Diabetes mellitus terminal superintendent insulin use: without terminal superintendent use Qualified Code(s): E11.59 - Type 2 diabetes mellitus with other circulatory complications (5) 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 Patient is very complicated medical history. He had been receiving Epifix (5 applications this far) to his left heel. His left heel developed a thick, dry scabbing present that, that was a significant change in appearance. Suspect that the patient has been putting a lot of pressure to this area. Wound care for the left heel ulcer, sacral ulcer and the skin tear will all be Aquacel-Ag covered with gauze/ABD daily. Wash the ulcers with soap and water at the time of the dressing changes. Stressed that he needs to keep his heel elevated off the bed (he has a padded boot, but that, I believe is too much pressure). Reinforced how to lift lower leg, from the knee to the ankle to elevate foot off the bed so there is no pressure at all to the heel. He verbalized understanding. Compression - Increase to Double tubigrip on left. He wears a compression stocking on the right. He has received his low air loss mattress which is leaking air, instructed to contact the distributor to come evaluated it. MRI was done 08/16/24. The impression of the sacral decubitus ulcer with sacrococcygeal osteomyelitis. He has seen ID and completed his antibiotics. Wound culture of left heel ulcer from 08/08/24 positive for MDRO Pseudomonas aeruginosa. Referral to infectious disease for treatment. He is met with Dr. Pedersen and was started on IV antibiotics which he will conplet 10/08/24. He has home health to assist with dressings and his will change them on the days home health is not there. Follow up 2 weeks. Call or come in sooner if develop any concerns.
[2024-11-14 13:33] VITALS: BP 120/62; PULSE 70; RESP 16; TEMP 35.8; BMI 31.6
--- NOTE | 2024-11-14 16:40 | PCM.WC.PN ---
History of Present Illness Date of Service: 11/14/24 Chief Complaint: Follow-up on buttocks right and left heel wounds that have been going on for months. 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 He lays on his chair most of the day. And has developed 2 areas on his buttocks sores that have gotten bigger and they have been trying to close for months. Currently there is been using antibiotic ointment. Also has tried Silvadene creams and other things through his doctor Now he has been referred here to the wound center. Wound culture of left heel ulcer from 08/08/24 positive for MDRO Pseudomonas aeruginosa. Referral to infectious disease for treatment. MRI of Pelvis 08/16/24 - Sacral decubitus ulcer with sacrococcygeal osteomyelitis. Progress of Wound: The sacral ulcer with bone palpable but covered with granulation tissue and is beefy pink. There is undermining present, which is stable. The perineal ulcer (skin tear proximal to sacral ulcer) is healed. Left medial heel is stable, there is some non viable tissue present, but not as much as previous visits. His wrist is healing well. He is sleeping on the low air loss mattress. Objective Data Objective Data Vital Signs: Vital Signs Temp Pulse Resp BP O2 Del Method 96.5 F L 70 16 120/62 Room Air 11/14/24 13:33 11/14/24 13:33 11/14/24 13:33 11/14/24 13:33 11/14/24 13:33 Oxygen Delivery Method Room Air Weight: 220 lb 0.271 oz Body Mass Index (BMI) 31.6 Charges/Coding Procedures Integumentary 111xxx-113xx: 33829 Ginette musc/fascia 20 sq cm/< (sacral ulcer) Multi Select Codes Integumentary Integumentary CPT Codes: 40497 Ginette subq tissue 20 sq cm/< (left heel) Debridement Note Debridement Note Wound debrided: Sacral ulcer Laterality: Left Wound Grade/Stage: Stage IV Type of Debridement: Excisional debridement Anesthesia Used: 5% Lidocaine Gel Depth: Down to and including healthy tissue, in the subcutaneous layer, to muscle and to bone Percentage of wound debrided: 100 Instrument Used: 5mm curette Tissue Removed: Non viable tissue and slough into the muscle Severity: Fat Layer Exposed Amount of bleeding with debridement: Mild Bleeding Controlled with: Compression and gauze Patient tolerated procedure: Patient tolerated procedure well Post-Debridement Measurements and Additional Note: Post-Debridement Measurements/Treatment - Nurse 1 - General Ulcer Assessment Start: 10/24/24 13:12 Freq: Status: Active Protocol: CHEL Activity Type Activity Date Activity User E-sign Co-sign Detail Recorded Client Recorded Date Recorded By Document 10/24/24 13:13 DL [id number] 10/24/24 13:27 DL Document 11/14/24 13:33 BMF [id number] 11/14/24 13:51 BMF 10/24/24 11/14/24 13:13 13:33 WC - Today's Visit Information Type of service Follow-up Visit Follow-up Visit (Physician/DIRECTOR OF SUPPLY CHAIN (Physician/DIRECTOR OF SUPPLY CHAIN ) ) Arrival Mode Wheelchair Wheelchair Transfer Assistance Other Transfer Assist (Other) 1 Patient Identification Verified (Name & Yes Yes ) Patient Requires Transmission-Based Yes No Precautions Safety Precautions Fall Prevention Height and Weight Body Mass Index (BMI) 31.6 31.6 BMI Classification Obese Obese Vital Signs Temperature (97.8 F-99.1 F) 95.8 F L 96.5 F L Temperature Source Temporal Temporal Pulse Rate (60-100) 76 70 Pulse Location Monitor Monitor Respiratory Rate (12-18) 18 16 Respiratory rate source Observation Observation Oxygen Delivery Method Room Air Blood Pressure (90/60-120/80) 119/65 120/62 Blood Pressure Mean (mm Hg) 83 81 Source Monitor Monitor Position Sitting Blood Pressure Location Right Arm History Since Last Visit- (Skip if this is Patient's initial visit) Have you changed medications since your No No last visit? Any new allergies or adverse reactions No No Had a fall/change in ADL's that may Yes No increase risk of falls Signs or symptoms of abuse and/or No No neglect since last visit Have you been in the hospital since your No No last visit? Has dressing in place as prescribed Yes Yes Has compression in place as prescribed Yes N/A Has offloadiing in place as prescribed Yes Yes Experienced any changes in pain level or No No management Left Footwear Surgical Shoe with pressure relief insole Right Footwear Diabetic Shoe Pain Scale: 0-10 Numeric Is Patient Pain Free? Yes Yes - Nurse 1 - General Ulcer Measurement Start: 10/24/24 13:12 Freq: Status: Active Protocol: Activity Type Activity Date Activity User E-sign Co-sign Detail Recorded Client Recorded Date Recorded By Document 10/24/24 13:13 DL [id number] 10/24/24 13:27 DL Document 11/14/24 13:33 [facility] [id number] 11/14/24 13:51 BMF 10/24/24 11/14/24 13:13 13:33 Wound Center Nurse 1 4. LEFT BUTTOCK -Combined with other wound No No -Current Size (cm) - Length 0.5 0.1 -Current Size (cm) - Width 0.5 0.1 -Current Size (cm) - Depth 0.1 0.1 -Total Square Cm 0.25 0.01 -Date of Last Picture (Recall this 11/14/24 field) -Photo Taken Yes -Epithelialization Large 67-100% -Tunneling No -Undermining/Tunneling No -Circular Undermining No -Exudate Amt Medium -Exudate Type Serosanguineous -Wound Margin Distinct, Outline Attached -Granulation Amt None Present (0 %) -Slough/Fibrin Yes -Necrosis Amt Large (67-100%) -Necrotic Tissue Type Adherent Slough -Texture (Andreea-wound Skin Appearance) Assessed, Scarring Scarring -Moisture (Andreea-wound Skin Appearance) Assessed -Color (Andreea-wound Skin Appearance) Assessed, Erythema -Temperature (Andreea-wound Skin No Abnormality Appearance) (Pt Warm) -Tenderness on Palpation (Andreea-wound No Skin Appearance) -Ulcer Cleansing Rinsed/ Irrigated with Saline -Foul Odor after Cleansing No -Anesthetic Used 4% Lidocaine Solution #2 L Heel -Combined with other wound No No -Current Size (cm) - Length 4.5 4.2 -Current Size (cm) - Width 3.6 4.6 -Current Size (cm) - Depth 0.1 0.1 -Total Square Cm 16.20 19.32 -Date of Last Picture (Recall this 11/14/24 field) -Photo Taken Yes -Epithelialization None Present Small 1-33% -Tunneling No No -Undermining/Tunneling No No -Circular Undermining No No -Exudate Amt Medium Medium -Exudate Type Serosanguineous Serosanguineous -Wound Margin Distinct, Distinct, Outline Outline Attached Attached -Granulation Amt Medium (34-66%) Large (67-100%) -Granulation Quality Pale,Red Red -Slough/Fibrin Yes Yes -Necrosis Amt Medium (34-66%) Small (1-33%) -Necrotic Tissue Type Adherent Slough Adherent Slough -Texture (Andreea-wound Skin Appearance) Assessed Assessed -Moisture (Andreea-wound Skin Appearance) Assessed Assessed -Color (Andreea-wound Skin Appearance) Assessed Assessed, Erythema -Temperature (Andreea-wound Skin No Abnormality No Abnormality Appearance) (Pt Warm) (Pt Warm) -Tenderness on Palpation (Andreea-wound No No Skin Appearance) -Ulcer Cleansing Rinsed/ Rinsed/ Irrigated with Irrigated with Saline Saline -Foul Odor after Cleansing No No -Anesthetic Used 4% Lidocaine 4% Lidocaine Solution Solution #1 Sacral Cluster -Combined with other wound No No -Current Size (cm) - Length 2.8 2.4 -Current Size (cm) - Width 1.7 1.3 -Current Size (cm) - Depth 2 1 -Total Square Cm 4.76 3.12 -Date of Last Picture (Recall this 11/14/24 field) -Photo Taken Yes -Epithelialization Small 1-33% -Undermining/Tunneling Yes Yes -Undermining/Tunneling Starts (O'clock 1 12 ) -Undermining/Tunneling Ends (O'clock) 4 5 -Maximum Distance (cm) 4 4.5 -Circular Undermining No No -Exudate Amt Medium Large -Exudate Type Serosanguineous Serosanguineous -Wound Margin Thickened & Thickened & Rolled Under Rolled Under -Granulation Amt Large (67-100%) Large (67-100%) -Granulation Quality Red Red -Slough/Fibrin Yes Yes -Necrosis Amt Small (1-33%) Small (1-33%) -Necrotic Tissue Type Adherent Slough Adherent Slough -Texture (Andreea-wound Skin Appearance) Assessed Assessed -Moisture (Andreea-wound Skin Appearance) Assessed, Assessed Maceration -Color (Andreea-wound Skin Appearance) Assessed Assessed -Temperature (Andreea-wound Skin No Abnormality No Abnormality Appearance) (Pt Warm) (Pt Warm) -Tenderness on Palpation (Andreea-wound No No Skin Appearance) -Ulcer Cleansing Rinsed/ Rinsed/ Irrigated with Irrigated with Saline Saline -Foul Odor after Cleansing No No -Anesthetic Used 4% Lidocaine 4% Lidocaine Solution Solution Lower Limb Edema Present Yes Left Calf (cm) 35.6 Left Ankle (cm) 22.1 22.2 - Nurse 2 - General Ulcer CM Notes Start: 10/24/24 13:12 Freq: Status: Active Protocol: Activity Type Activity Date Activity User E-sign Co-sign Detail Recorded Client Recorded Date Recorded By Document 10/24/24 13:47 [id number] 10/24/24 13:57 Document 11/14/24 14:08 [id number] 11/14/24 14:20 10/24/24 11/14/24 13:47 14:08 Wound Center Nurse 2 4. LEFT BUTTOCK -Time 13:47 14:09 -Correct Patient Yes Yes -Correct Side, Site, Position Yes Yes -Correct Procedure Yes No -Procedure Performed Yes No -Type of Procedure Debridement -Clinical Debridement Subcutaneous -Tissue Removed Subcutaneous -Post Debridement (cm) - Length 0.5 -Post Debridement (cm) - Width 0.8 -Post Debridement (cm) - Depth 0.1 -Total Square (Post) (cm) 0.40 -Area of Debridement (cm) - Length 0.5 -Area of Debridement (cm) - Width 0.8 -Total Square (Area) (cm) 0.40 -Tunneling No No -Undermining/Tunneling No No -Circular Undermining No No -Wound/Ulcer Outcome Not Healed Healed- Epithelialized -Ulcer Cleansing Rinsed/ Irrigated with Saline -Foul Odor after Cleansing No -Bioengineered Tissue No -Bleeding Controlled with Pressure -Treatment Response Procedure Tolerated Well -Debridement - Subq, 1st 20sq cm No #2 L Heel -Time 13:49 14:12 -Correct Patient Yes Yes -Correct Side, Site, Position Yes Yes -Correct Procedure Yes Yes -Procedure Performed Yes Yes -Type of Procedure Debridement Debridement -Clinical Debridement Subcutaneous Subcutaneous -Tissue Removed Subcutaneous Subcutaneous -Post Debridement (cm) - Length 4.5 4.2 -Post Debridement (cm) - Width 4.0 4.5 -Post Debridement (cm) - Depth 0.1 0.1 -Total Square (Post) (cm) 18.00 18.90 -Area of Debridement (cm) - Length 4.5 4.2 -Area of Debridement (cm) - Width 4.0 4.5 -Total Square (Area) (cm) 18.00 18.90 -Tunneling No No -Undermining/Tunneling No No -Circular Undermining No No -Wound/Ulcer Outcome Not Healed Not Healed -Ulcer Cleansing Rinsed/ Rinsed/ Irrigated with Irrigated with Saline Saline -Foul Odor after Cleansing No No -Bioengineered Tissue No No -Bleeding Controlled with Pressure Pressure -Treatment Response Procedure Procedure Tolerated Well Tolerated Well -Debridement - Subq, 1st 20sq cm Yes Yes #1 Sacral Cluster -Time 13:49 14:11 -Correct Patient Yes Yes -Correct Side, Site, Position Yes Yes -Correct Procedure Yes Yes -Procedure Performed Yes Yes -Type of Procedure Debridement Debridement -Clinical Debridement Muscle / Fascia Muscle / Fascia -Tissue Removed Muscle Muscle -Post Debridement (cm) - Length 3.0 3.0 -Post Debridement (cm) - Width 2.1 2.0 -Post Debridement (cm) - Depth 1.2 0.8 -Total Square (Post) (cm) 6.30 6.00 -Area of Debridement (cm) - Length 3.0 3.0 -Area of Debridement (cm) - Width 2.1 2.0 -Total Square (Area) (cm) 6.30 6.00 -Tunneling Yes No -Tunneling Position (O'clock) 2 -Tunneling Distance (cm) 4.3 -Undermining/Tunneling No Yes -Undermining/Tunneling Starts (O'clock 2 ) -Undermining/Tunneling Ends (O'clock) 3 -Maximum Distance (cm) 4.4 -Circular Undermining No No -Wound/Ulcer Outcome Not Healed Not Healed -Ulcer Cleansing Rinsed/ Rinsed/ Irrigated with Irrigated with Saline Saline -Foul Odor after Cleansing No No -Bioengineered Tissue No No -Bleeding Controlled with Pressure Pressure -Treatment Response Procedure Procedure Tolerated Well Tolerated Well -Offloading No -Debridement - Muscle / Fascia, 1st Yes Yes 20sq cm Pain Scale: 0-10 Numeric Is Patient Pain Free? Yes Yes WC - Nurse 3 - General Ulcer D/C NN Start: 10/24/24 13:12 Freq: Status: Active Protocol: Activity Type Activity Date Activity User E-sign Co-sign Detail Recorded Client Recorded Date Recorded By Document 10/24/24 14:02 DL [id number] 10/24/24 14:10 DL Document 11/14/24 14:40 KW [id number] 11/14/24 14:41 KW 10/24/24 11/14/24 14:02 14:40 Wound Care Center Nurse 3 4. LEFT BUTTOCK -Ulcer Cleansing Soap and Water -Foul Odor after Cleansing No -Primary Dressing Applied Silicone Border Foam 6x6 -Other Dressing aquacel AG AQUACEL AG WITH FLUFFED GAUZE -Primary Dressing Covered/Secured with Dry Gauze -Silicone Border Foam 6x6 1 #2 L Heel -Ulcer Cleansing Rinsed/ Irrigated with Saline -Foul Odor after Cleansing No -Primary Dressing Applied Aquacel AG 4x4 -Other Dressing aquacel ag -Primary Dressing Covered/Secured with Dry Gauze & Dry Gauze & Roll Gauze, Roll Gauze, Secured with Secured with Tape Tape -Other Covering Padding -Aquacel AG 4x4 1 #1 Sacral Cluster -Ulcer Cleansing Rinsed/ Irrigated with Saline -Primary Dressing Applied Mepilex Border -Other Dressing aquacel AG -Primary Dressing Covered/Secured with Dry Gauze -Aquacel AG 4x4 1 -Mepilex Border 1 Left -Tubular Bandage Double Layer Double Layer -Size of Tubigrip Used Size E Size E -Size E ($) 2 2 Treatment Response Procedure Tolerated Well Pain Scale: 0-10 Numeric Is Patient Pain Free? Yes Yes WC - Visit Discharge Discharge Condition Stable Stable Ambulatory Status Wheelchair Wheelchair Transportation Private Auto Private Auto Medication Reconcilliation completed & No provided to patient/care provider Clinical Summary of Care Provided Yes Facility Type Home Health Orders Sent Yes Additional Wound Wound debrided: Left heel pressure ulcer Laterality: Left Wound Grade/Stage: Stage III Type of Debridement: Excisional debridement Anesthesia Used: 5% Lidocaine Gel Depth: in the subcutaneous layer Percentage of wound debrided: 100 Instrument Used: 5mm curette Tissue Removed: Non viable tissue and slough Severity: Fat Layer Exposed Bleeding Controlled with: Compression and gauze Patient tolerated procedure: Patient tolerated procedure well Assessment/Plan Assessment/Plan (1) Sacral decubitus ulcer, stage IV: CODE(S): L89.154 - Pressure ulcer of sacral region, stage 4 (2) Pressure ulcer of left heel, stage 3: CODE(S): L89.623 - Pressure ulcer of left heel, stage 3 (3) Mobility impaired: CODE(S): Z74.09 - Other reduced mobility (4) Type 2 diabetes mellitus: CODE(S): E11.9 - Type 2 diabetes mellitus without complications QUALIFIERS: Diabetes mellitus intermediate project manager insulin use: without intermediate project manager use Diabetes mellitus complication status: with circulatory complication Diabetes mellitus complication detail: with other circulatory complications Qualified Code(s): E11.59 - Type 2 diabetes mellitus with other circulatory complications (5) 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 Patient has a very complicated medical history. He had been receiving Epifix (5 applications this far) to his left heel. His left heel developed a thick, dry scabbing present that, that was a significant change in appearance. Suspect that the patient has been putting a lot of pressure to this area. Wound care for the left heel ulcer and sacral ulcer will all be Aquacel-Ag covered with gauze/ABD twice daily (per his 's request due to drainage). Wash the ulcers with soap and water at the time of the dressing changes. Stressed that he needs to keep his heel elevated off the bed (he has a padded boot, but that, I believe is too much pressure). Reinforced how to lift lower leg, from the knee to the ankle to elevate foot off the bed so there is no pressure at all to the heel. He verbalized understanding. Compression - Double tubigrip on left. He wears a compression stocking on the right. He has received his low air loss mattress. MRI was done 08/16/24. The impression of the sacral decubitus ulcer with sacrococcygeal osteomyelitis. He has seen ID and completed his antibiotics. Wound culture of left heel ulcer from 08/08/24 positive for MDRO Pseudomonas aeruginosa. Referral to infectious disease for treatment. He is met with Dr. Pedersen and was started on IV antibiotics which he will conplet 10/08/24. He has home health to assist with dressings and his will change them on the days home health is not there. Follow up 2 weeks. Call or come in sooner if develop any concerns.
--- NOTE | 2024-11-15 09:09 | WC ---
PHOTO 11/14/24 LEFT HEEL
--- NOTE | 2024-11-15 09:09 | WC ---
PHOTO 11/14/24 SACRUM
--- NOTE | 2024-11-15 09:10 | WC ---
PHOTO 11/14/24 LEFT BUTTOCK
== END 2024-11-16 23:59 | disposition home or self-care (01) ==
LOC: WC 13:15
PROVIDERS: PCP Family Medicine; Referring Provider Family Medicine; Visit Provider Nurse Practitioner Family
DX: L89.154 Pressure ulcer of sacral region, stage 4 (principal); L89.623 Pressure ulcer of left heel, stage 3; M46.28 Osteomyelitis of vertebra, sacral and sacrococcygeal region; C91.90 Lymphoid leukemia, unspecified not having achieved remission; E11.59 Type 2 diabetes mellitus with other circulatory complications; E11.69 Type 2 diabetes mellitus with other specified complication; S31.801A Laceration without foreign body of unspecified buttock, initial encounter; Z16.24 Resistance to multiple antibiotics; Z74.09 Other reduced mobility; X58.XXXA Exposure to other specified factors, initial encounter; B96.5 Pseudomonas (aeruginosa) (mallei) (pseudomallei) as the cause of diseases classified elsewhere
CPT/HCPCS: 11042; 11043

== ENCOUNTER 2024-12-10 14:15 | Outpatient (RCR) | payer MEDICARE, SELFPAY ==
[2024-11-17 01:11] VITALS: BP 120/62; PULSE 70; RESP 16; TEMP 35.8; BMI 31.6
[2024-11-28 14:02] VITALS: BP 111/62; PULSE 71; RESP 16; TEMP 36.6; BMI 31.6
--- NOTE | 2024-11-28 15:31 | PCM.WC.PN ---
History of Present Illness Date of Service: 11/28/24 Chief Complaint: Follow-up on buttocks right and left heel wounds that have been going on for months. 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 He lays on his chair most of the day. And has developed 2 areas on his buttocks sores that have gotten bigger and they have been trying to close for months. Currently there is been using antibiotic ointment. Also has tried Silvadene creams and other things through his doctor Now he has been referred here to the wound center. Wound culture of left heel ulcer from 08/08/24 positive for MDRO Pseudomonas aeruginosa. Referral to infectious disease for treatment. MRI of Pelvis 08/16/24 - Sacral decubitus ulcer with sacrococcygeal osteomyelitis. Progress of Wound: The sacral ulcer with bone palpable but covered with granulation tissue and is beefy pink. There is undermining present, which is stable. The perineal ulcer (skin tear proximal to sacral ulcer) remains healed. Left medial heel appears improved with pink ulcer bed and much less non viable tissue present. He is sleeping on the low air loss mattress. Objective Data Objective Data Vital Signs: Vital Signs Temp Pulse Resp BP O2 Del Method 97.8 F 71 16 111/62 Room Air 11/28/24 14:02 11/28/24 14:02 11/28/24 14:02 11/28/24 14:02 11/28/24 14:02 Oxygen Delivery Method Room Air Weight: 220 lb 0.271 oz Body Mass Index (BMI) 31.6 Charges/Coding Procedures Integumentary 111xxx-113xx: 03680 Ginette musc/fascia 20 sq cm/< (sacral ulcer) Multi Select Codes Integumentary Integumentary CPT Codes: 78582 Ginette subq tissue 20 sq cm/< (left heel) Debridement Note Debridement Note Wound debrided: Sacral ulcer Laterality: Left Wound Grade/Stage: Stage IV Type of Debridement: Excisional debridement Anesthesia Used: 5% Lidocaine Gel Depth: Down to and including healthy tissue, in the subcutaneous layer and to muscle Percentage of wound debrided: 100 Instrument Used: 7mm curette Tissue Removed: Non viable tissue and slough into the muscle Severity: Fat Layer Exposed Amount of bleeding with debridement: Mild Bleeding Controlled with: Compression and gauze Patient tolerated procedure: Patient tolerated procedure well Post-Debridement Measurements and Additional Note: Post-Debridement Measurements/Treatment WC - Nurse 1 - General Ulcer Assessment Start: 11/28/24 14:02 Freq: Status: Active Protocol: CHEL Activity Type Activity Date Activity User E-sign Co-sign Detail Recorded Client Recorded Date Recorded By Document 11/28/24 14:02 KW [id number] 11/28/24 14:18 KW 11/28/24 14:02 WC - Today's Visit Information Type of service Follow-up Visit (Physician/LIQUOR MAKER ) Arrival Mode Other Arrival Mode (Other) POWER SCOOTER Accompanied by Patient Identification Verified (Name & Yes ) Height and Weight Body Mass Index (BMI) 31.6 BMI Classification Obese Vital Signs Temperature (97.8 F-99.1 F) 97.8 F Temperature Source Temporal Pulse Rate (60-100) 71 Pulse Location Monitor Respiratory Rate (12-18) 16 Respiratory rate source Observation Oxygen Delivery Method Room Air Blood Pressure (90/60-120/80) 111/62 Blood Pressure Mean (mm Hg) 78 Source Monitor Position Sitting Blood Pressure Location Right Arm History Since Last Visit- (Skip if this is Patient's initial visit) Have you changed medications since your No last visit? Any new allergies or adverse reactions No Had a fall/change in ADL's that may No increase risk of falls Signs or symptoms of abuse and/or No neglect since last visit Have you been in the hospital since your No last visit? Has dressing in place as prescribed Yes Has compression in place as prescribed N/A Has offloadiing in place as prescribed Yes Experienced any changes in pain level or No management Left Footwear Regular Shoe Right Footwear Regular Shoe Pain Scale: 0-10 Numeric Is Patient Pain Free? Yes SHAYLA - Nurse 1 - General Ulcer Measurement Start: 11/28/24 14:02 Freq: Status: Active Protocol: Activity Type Activity Date Activity User E-sign Co-sign Detail Recorded Client Recorded Date Recorded By Document 11/28/24 14:02 KW [id number] 11/28/24 14:18 KW 11/28/24 14:02 Wound Center Nurse 1 4. LEFT BUTTOCK -Current Size (cm) - Length 3 -Current Size (cm) - Width 2.5 -Current Size (cm) - Depth 1.1 -Total Square Cm 7.5 -Undermining/Tunneling Yes -Undermining/Tunneling Starts (O'clock 12 ) -Undermining/Tunneling Ends (O'clock) 5 -Maximum Distance (cm) 4.4 -Exudate Amt Small -Exudate Type Serosanguineous -Wound Margin Thickened & Rolled Under -Granulation Amt Medium (34-66%) -Granulation Quality [place],Red -Necrosis Amt Medium (34-66%) -Necrotic Tissue Type Adherent Slough -Texture (Andreea-wound Skin Appearance) Assessed -Moisture (Andreea-wound Skin Appearance) Assessed -Color (Andreea-wound Skin Appearance) No Abnormality -Temperature (Andreea-wound Skin No Abnormality Appearance) (Pt Warm) -Tenderness on Palpation (Andreea-wound No Skin Appearance) -Ulcer Cleansing Rinsed/ Irrigated with Saline -Foul Odor after Cleansing No -Anesthetic Used 4% Lidocaine Solution #2 L Heel -Current Size (cm) - Length 4.5 -Current Size (cm) - Width 4 -Current Size (cm) - Depth 0.2 -Total Square Cm 18.0 -Exudate Amt Medium -Exudate Type Serosanguineous -Wound Margin Distinct, Outline Attached -Granulation Amt Small (1-33%) -Granulation Quality [place],Red -Necrosis Amt Large (67-100%) -Necrotic Tissue Type Adherent Slough -Texture (Andreea-wound Skin Appearance) Assessed -Moisture (Andreea-wound Skin Appearance) Assessed -Color (Andreea-wound Skin Appearance) Assessed -Temperature (Andreea-wound Skin No Abnormality Appearance) (Pt Warm) -Tenderness on Palpation (Andreea-wound No Skin Appearance) -Ulcer Cleansing Rinsed/ Irrigated with Saline -Foul Odor after Cleansing No -Anesthetic Used 5% Lidocaine Gel WC - Nurse 2 - General Ulcer CM Notes Start: 11/28/24 14:02 Freq: Status: Active Protocol: Activity Type Activity Date Activity User E-sign Co-sign Detail Recorded Client Recorded Date Recorded By Document 11/28/24 14:29 [id number] 11/28/24 14:36 11/28/24 14:29 Wound Center Nurse 2 -Time 14:31 -Correct Patient Yes -Correct Side, Site, Position Yes -Correct Procedure Yes -Procedure Performed Yes -Type of Procedure Debridement -Clinical Debridement Subcutaneous -Tissue Removed Subcutaneous -Post Debridement (cm) - Length 4.7 -Post Debridement (cm) - Width 3.5 -Post Debridement (cm) - Depth 0.1 -Total Square (Post) (cm) 16.45 -Area of Debridement (cm) - Length 4.7 -Area of Debridement (cm) - Width 3.5 -Total Square (Area) (cm) 16.45 -Tunneling No -Undermining/Tunneling No -Circular Undermining No -Wound/Ulcer Outcome Not Healed -Ulcer Cleansing Rinsed/ Irrigated with Saline -Foul Odor after Cleansing No -Bioengineered Tissue No -Bleeding Controlled with Pressure -Treatment Response Procedure Tolerated Well -Debridement - Subq, 1st 20sq cm Yes #1 Sacral Cluster -Time 14:29 -Correct Patient Yes -Correct Side, Site, Position Yes -Correct Procedure Yes -Procedure Performed Yes -Type of Procedure Debridement -Clinical Debridement Muscle / Fascia -Tissue Removed Muscle -Post Debridement (cm) - Length 3.0 -Post Debridement (cm) - Width 2.0 -Post Debridement (cm) - Depth 0.8 -Total Square (Post) (cm) 6.00 -Area of Debridement (cm) - Length 3.0 -Area of Debridement (cm) - Width 2.0 -Total Square (Area) (cm) 6.00 -Tunneling No -Undermining/Tunneling Yes -Undermining/Tunneling Starts (O'clock 1 ) -Undermining/Tunneling Ends (O'clock) 2 -Maximum Distance (cm) 3.8 -Circular Undermining No -Wound/Ulcer Outcome Not Healed -Ulcer Cleansing Rinsed/ Irrigated with Saline -Foul Odor after Cleansing No -Bioengineered Tissue No -Bleeding Controlled with Pressure -Treatment Response Procedure Tolerated Well -Offloading No -Debridement - Muscle / Fascia, 1st Yes 20sq cm Pain Scale: 0-10 Numeric Is Patient Pain Free? Yes WC - Nurse 3 - General Ulcer D/C NN Start: 11/28/24 14:02 Freq: Status: Active Protocol: Activity Type Activity Date Activity User E-sign Co-sign Detail Recorded Client Recorded Date Recorded By Document 11/28/24 14:48 KW [id number] 11/28/24 14:49 KW 11/28/24 14:48 Wound Care Center Nurse 3 #2 L Heel -Primary Dressing Applied Aquacel AG 4x4 -Primary Dressing Covered/Secured with Dry Gauze & Roll Gauze, Secured with Tape -Aquacel AG 4x4 1 #1 Sacral Cluster -Primary Dressing Applied Sacral Foam Border -Other Dressing AQUACEL AG -Primary Dressing Covered/Secured with Dry Gauze -Sacral Foam Border 1 Left -Tubular Bandage Double Layer -Size of Tubigrip Used Size E -Size E ($) 2 Pain Scale: 0-10 Numeric Is Patient Pain Free? Yes WC - Visit Discharge Discharge Condition Stable Ambulatory Status Wheelchair Transportation Private Auto Medication Reconcilliation completed & No provided to patient/care provider Clinical Summary of Care Provided Yes Additional Wound Wound debrided: Left heel pressure ulcer Laterality: Left Wound Grade/Stage: Stage III Type of Debridement: Excisional debridement Anesthesia Used: 5% Lidocaine Gel Depth: in the subcutaneous layer Percentage of wound debrided: 100 Instrument Used: 5mm curette Tissue Removed: Non viable tissue and slough Severity: Fat Layer Exposed Amount of bleeding with debridement: Mild Bleeding Controlled with: Compression and gauze Patient tolerated procedure: Patient tolerated procedure well Assessment/Plan Assessment/Plan (1) Sacral decubitus ulcer, stage IV: CODE(S): L89.154 - Pressure ulcer of sacral region, stage 4 (2) Pressure ulcer of left heel, stage 3: CODE(S): L89.623 - Pressure ulcer of left heel, stage 3 (3) Mobility impaired: CODE(S): Z74.09 - Other reduced mobility (4) Type 2 diabetes mellitus: CODE(S): E11.9 - Type 2 diabetes mellitus without complications QUALIFIERS: Diabetes mellitus intermediate insulin use: without intermediate school teacher use Diabetes mellitus complication status: with circulatory complication Diabetes mellitus complication detail: with other circulatory complications Qualified Code(s): E11.59 - Type 2 diabetes mellitus with other circulatory complications PLAN: Plan Patient was evaluated at the wound healing center today. Patient has a very complicated medical history. He had been receiving Epifix (5 applications thus far) to his left heel. His left heel developed a thick, dry scabbing present that, that was a significant change in appearance. Suspect that the patient has been putting a lot of pressure to this area. The Epifix was stopped. Wound care for the left heel ulcer will all be Aquacel-Ag covered with gauze/ABD daily. The sacral ulcer will be Aquacel-Ag wicked into the base of tunnel/ulcer, fluffed gauze and topped with gauze/ABD/super absorber/[place] SAP twice daily (per his 's request due to drainage). Wash the ulcers with soap and water at the time of the dressing changes. Stressed that he needs to keep his heel elevated off the bed (he has a padded boot, but that, I believe is too much pressure). Reinforced how to lift lower leg, from the knee to the ankle to elevate foot off the bed so there is no pressure at all to the heel. He verbalized understanding. Compression - Double tubigrip on left. He wears a compression stocking on the right. He has a low air loss mattress. MRI was done 08/16/24. The impression of the sacral decubitus ulcer with sacrococcygeal osteomyelitis. He has seen ID and completed his antibiotics. Wound culture of left heel ulcer from 08/08/24 positive for MDRO Pseudomonas aeruginosa. Referral to infectious disease for treatment. He is met with Dr. Pedersen and was started on IV antibiotics which he will completed 10/08/24. He has home health to assist with dressings and his will change them on the days home health is not there. Discussed with him about other options for wound healing for his sacral ulcer, including surgery. I am recommending he see Dr. Sewell, plastic surgery, at his next visit so he can make informed decisions on his wound care. Follow up [address] Sewell. Call or come in sooner if develop any concerns.
[2024-12-10 14:21] VITALS: BP 121/58; PULSE 73; RESP 18; TEMP 35.8; BMI 31.6
--- NOTE | 2024-12-11 09:54 | PCM.WC.HP ---
History of Present Illness Date of Service: 12/10/24 Chief Complaint: Follow-up on buttocks right and left heel wounds that have been going on for months. 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 He has not walked in several years. He is able to stand up to perform transfers, but does not move his ankle joints. He lays on his chair most of the day. And has developed a sacral wound that he has been following at the wound care center for as well as a left calcaneal wound in the setting of a recent hospitalization this past year, both of which he has been following here at the wound center with various advanced practice providers. Wound culture of left heel ulcer from 08/08/24 positive for MDRO Pseudomonas aeruginosa. Referral to infectious disease for treatment. MRI of Pelvis 08/16/24 - Sacral decubitus ulcer with sacrococcygeal osteomyelitis. Treated by infectious disease with long-term course of IV antibiotics. Progress of Wound: The sacral ulcer with bone palpable but covered with granulation tissue and is beefy pink. There is undermining present, which is stable. The perineal ulcer (skin tear proximal to sacral ulcer) remains healed. Left medial heel appears improved with pink ulcer bed and much less non viable tissue present. He is sleeping on the low air loss mattress. Current encounter, 11 December 2024: Patient reports that he has not had any vascular workup for the lower extremity. He has a history of a DVT in the left lower extremity in the remote history and remains on Eliquis for anticoagulation. He reports episodic swelling in the left lower extremity that appears to be worsening the condition of the wound. He is not having any shortness of breath. He is not having any systemic signs or symptoms of infection. 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 PAF (paroxysmal atrial fibrillation) Left ventricular hypertrophy Obesity Essential (primary) hypertension Osteoarthritis Gout Old inferior wall myocardial infarction (2000) Type 2 diabetes mellitus Lymphoid leukemia Hyperlipidemia Thrombocytopenic disorder Atherosclerotic heart disease of [place] coronary artery without angina pectoris HLD (hyperlipidemia) Home Medications ?Medication ?Instructions ?Recorded ?Last Taken ?Type aspirin 81 mg chewable tablet 81 mg PO DAILY@0800 12/05/13 Unknown History lorazepam 1 mg tablet 1 mg PO QHS 09/20/13 Unknown History multivitamin with folic acid 400 1 tab PO DAILY 09/20/13 Unknown History mcg tablet pyridoxine (vitamin B6) 100 mg 100 mg PO DAILY 09/20/13 Unknown History tablet tramadol 50 mg tablet 50 mg PO Q4H PRN PRN Pain 09/20/13 Unknown History famotidine 20 mg tablet (Acid 20 mg PO DAILY 12/01/18 Unknown History Contract Associate (famotidine)) ibrutinib 420 mg tablet (Imbruvica) 420 mg PO DAILY 12/01/18 Unknown History loratadine 10 mg capsule 10 mg PO DAILY 12/01/18 Unknown History cholecalciferol (vitamin D3) 25 25 mcg PO DAILY 12/30/20 Unknown History mcg (1,000 unit) tablet metformin 500 mg tablet,extended 500 mg PO BID 12/30/20 Unknown History release 24 hr gabapentin 600 mg tablet 600 mg PO TID 07/13/22 Unknown History metoprolol succinate 25 mg 25 mg PO DAILY #90 tabs 11/03/23 Unknown Rx tablet,extended release 24 hr nitroglycerin 0.4 mg sublingual 0.4 mg sublingual Q5M PRN chest 11/03/23 Unknown Rx tablet pain #25 tabs simvastatin 20 mg tablet 20 mg PO DAILY #90 tabs 11/03/23 Unknown Rx tamsulosin 0.4 mg capsule (Flomax) 0.4 mg PO DAILY 01/11/24 Unknown History amiodarone 200 mg tablet 200 mg PO DAILY #90 tabs 04/23/24 Unknown Rx apixaban 5 mg tablet (Eliquis) 5 mg PO BID #180 tabs 04/23/24 Unknown Rx lisinopril 5 mg tablet 5 mg PO DAILY #90 tabs 04/23/24 Unknown Rx Allergy/AdvReac Type Severity Reaction Status Date / Time niacin (From Niaspan Allergy Unknown Verified 08/29/24 14:25 Extended-Release) Sulfa (Sulfonamide AdvReac Swelling Verified 08/29/24 14:25 Antibiotics) Family History Father Cancer lymphoma Myocardial infarction CAD (coronary artery disease) Mother CVA (cerebral vascular accident) Cancer HLD (hyperlipidemia) Hypertension Brother Myocardial infarction CAD (coronary artery disease) Sister Breast cancer Surgical History H/O arthroscopic knee surgery History of lithotripsy History of repair of rotator cuff History of coronary artery stent placement (05/13/10) Social History Smoking Status: Never smoker alcohol intake: former substance use type: does not use caffeine: No what type of physical activity do you participate in: none seatbelt use: always do you feel safe at home: Yes Vital Signs Vital Signs Vital Signs: 12/10/24 14:21 Temperature 96.4 F L Temperature Source Temporal Pulse Rate 73 Respiratory Rate 18 Blood Pressure 121/58 H Blood Pressure Mean 79 Blood Pressure Source Monitor Weight Weight: 220 lb 0.271 oz Body Mass Index (BMI) 31.6 Physical Exam Narrative Sacral wound 4 x 2 cm and 2 cm deep. No exposed bone there is granulation over the bone. Periwound clean without any signs of induration. No fluid collections. Motor: 4 out of 5 hip flexion and extension bilaterally, 4 out of 5 knee flexion and extension bilaterally, 0 out of 5 foot plantarflexion and dorsiflexion. Sensation: No sensation to light touch on the feet. Consistent with peripheral neuropathy. Vascular: No palpable pulses but the feet are warm bilaterally. Extremity Extremity Narrative: Left plantar wound, minimal soft tissue over the calcaneus 5 x 4 cm No signs of infection today Debridement Note Debridement Note Post-Debridement Measurements and Additional Note: Post-Debridement Measurements/Treatment - Nurse 1 - General Ulcer Assessment Start: 11/28/24 14:02 Freq: Status: Active Protocol: CHEL Activity Type Activity Date Activity User E-sign Co-sign Detail Recorded Client Recorded Date Recorded By Document 11/28/24 14:02 KW [id number] 11/28/24 14:18 KW Document 12/10/24 14:21 DL [id number] 12/10/24 14:34 DL 11/28/24 12/10/24 14:02 14:21 - Today's Visit Information Type of service Follow-up Visit Follow-up Visit (Physician/[employer]IAN (Physician/[employer] LIBRARIAN ) ) Arrival Mode Other Wheelchair Arrival Mode (Other) POWER SCOOTER Transfer Assistance Manual Transfer Assist (Other) x1 Accompanied by Patient Identification Verified (Name & Yes Yes ) Patient Requires Transmission-Based No Precautions Height and Weight Body Mass Index (BMI) 31.6 31.6 BMI Classification Obese Obese Vital Signs Temperature (97.8 F-99.1 F) 97.8 F 96.4 F L Temperature Source Temporal Temporal Pulse Rate (60-100) 71 73 Pulse Location Monitor Monitor Respiratory Rate (12-18) 16 18 Respiratory rate source Observation Observation Oxygen Delivery Method Room Air Blood Pressure (90/60-120/80) 111/62 121/58 H Blood Pressure Mean 78 79 Source Monitor Monitor Position Sitting Blood Pressure Location Right Arm History Since Last Visit- (Skip if this is Patient's initial visit) Have you changed medications since your No No last visit? Any new allergies or adverse reactions No No Had a fall/change in ADL's that may No No increase risk of falls Signs or symptoms of abuse and/or No No neglect since last visit Have you been in the hospital since your No No last visit? Has dressing in place as prescribed Yes Yes Has compression in place as prescribed N/A Yes Has offloadiing in place as prescribed Yes Yes Experienced any changes in pain level or No No management Left Footwear Regular Shoe Right Footwear Regular Shoe Pain Scale: 0-10 Numeric Is Patient Pain Free? Yes Yes WC - Nurse 1 - General Ulcer Measurement Start: 11/28/24 14:02 Freq: Status: Active Protocol: Activity Type Activity Date Activity User E-sign Co-sign Detail Recorded Client Recorded Date Recorded By Document 11/28/24 14:02 KW [id number] 11/28/24 14:18 KW Document 12/10/24 14:21 DL [id number] 12/10/24 14:34 DL 11/28/24 12/10/24 14:02 14:21 Wound Center Nurse 1 4. LEFT BUTTOCK -Current Size (cm) - Length 3 -Current Size (cm) - Width 2.5 -Current Size (cm) - Depth 1.1 -Total Square Cm 7.5 -Undermining/Tunneling Yes -Undermining/Tunneling Starts (O'clock 12 ) -Undermining/Tunneling Ends (O'clock) 5 -Maximum Distance (cm) 4.4 -Exudate Amt Small -Exudate Type Serosanguineous -Wound Margin Thickened & Rolled Under -Granulation Amt Medium (34-66%) -Granulation Quality [place],Red -Necrosis Amt Medium (34-66%) -Necrotic Tissue Type Adherent Slough -Texture (Andreea-wound Skin Appearance) Assessed -Moisture (Andreea-wound Skin Appearance) Assessed -Color (Andreea-wound Skin Appearance) No Abnormality -Temperature (Andreea-wound Skin No Abnormality Appearance) (Pt Warm) -Tenderness on Palpation (Andreea-wound No Skin Appearance) -Ulcer Cleansing Rinsed/ Irrigated with Saline -Foul Odor after Cleansing No -Anesthetic Used 4% Lidocaine Solution #2 L Heel -Current Size (cm) - Length 4.5 5 -Current Size (cm) - Width 4 3.5 -Current Size (cm) - Depth 0.2 0.1 -Total Square Cm 18.0 17.5 -Exudate Amt Medium Medium -Exudate Type Serosanguineous Serosanguineous -Wound Margin Distinct, Distinct, Outline Outline Attached Attached -Granulation Amt Small (1-33%) Medium (34-66%) -Granulation Quality [place],Red [place] -Necrosis Amt Large (67-100%) Medium (34-66%) -Necrotic Tissue Type Adherent Slough Adherent Slough -Structure Exposed N/A -Texture (Andreea-wound Skin Appearance) Assessed Scarring -Moisture (Andreea-wound Skin Appearance) Assessed No Abnormality -Color (Andreea-wound Skin Appearance) Assessed No Abnormality -Temperature (Andreea-wound Skin No Abnormality No Abnormality Appearance) (Pt Warm) (Pt Warm) -Tenderness on Palpation (Andreea-wound No No Skin Appearance) -Ulcer Cleansing Rinsed/ Soap and Water Irrigated with Saline -Foul Odor after Cleansing No No -Anesthetic Used 5% Lidocaine 4% Lidocaine Gel Solution #1 Sacral Cluster -Current Size (cm) - Length 2.6 -Current Size (cm) - Width 1.8 -Current Size (cm) - Depth 1.8 -Total Square Cm 4.68 -Exudate Amt Medium -Exudate Type Serosanguineous -Wound Margin Distinct, Outline Attached -Granulation Amt Large (67-100%) -Granulation Quality Red -Necrosis Amt Small (1-33%) -Necrotic Tissue Type Adherent Slough -Structure Exposed N/A -Texture (Andreea-wound Skin Appearance) Scarring -Moisture (Andreea-wound Skin Appearance) Maceration -Color (Andreea-wound Skin Appearance) No Abnormality -Temperature (Andreea-wound Skin No Abnormality Appearance) (Pt Warm) -Ulcer Cleansing Soap and Water -Foul Odor after Cleansing No -Anesthetic Used 4% Lidocaine Solution Left Calf (cm) 37 Left Ankle (cm) 22.5 WC - Nurse 2 - General Ulcer CM Notes Start: 11/28/24 14:02 Freq: Status: Active Protocol: Activity Type Activity Date Activity User E-sign Co-sign Detail Recorded Client Recorded Date Recorded By Document 11/28/24 14:29 [id number] 11/28/24 14:36 Document 12/10/24 15:11 [id number] 12/10/24 15:31 11/28/24 12/10/24 14:29 15:11 Wound Center Nurse 2 #2 L Heel -Time 14:31 -Correct Patient Yes No -Correct Side, Site, Position Yes No -Correct Procedure Yes No -Procedure Performed Yes No -Type of Procedure Debridement -Clinical Debridement Subcutaneous -Tissue Removed Subcutaneous -Post Debridement (cm) - Length 4.7 -Post Debridement (cm) - Width 3.5 -Post Debridement (cm) - Depth 0.1 -Total Square (Post) (cm) 16.45 -Area of Debridement (cm) - Length 4.7 -Area of Debridement (cm) - Width 3.5 -Total Square (Area) (cm) 16.45 -Tunneling No -Undermining/Tunneling No -Circular Undermining No -Wound/Ulcer Outcome Not Healed Not Healed -Ulcer Cleansing Rinsed/ Irrigated with Saline -Foul Odor after Cleansing No -Bioengineered Tissue No -Bleeding Controlled with Pressure -Treatment Response Procedure Tolerated Well -Debridement - Subq, 1st 20sq cm Yes #1 Sacral Cluster -Time 14:29 15:13 -Correct Patient Yes Yes -Correct Side, Site, Position Yes Yes -Correct Procedure Yes Yes -Procedure Performed Yes Yes -Type of Procedure Debridement Debridement -Clinical Debridement Muscle / Fascia Muscle / Fascia -Tissue Removed Muscle Muscle,Fascia -Post Debridement (cm) - Length 3.0 4 -Post Debridement (cm) - Width 2.0 2 -Post Debridement (cm) - Depth 0.8 2 -Total Square (Post) (cm) 6.00 8 -Area of Debridement (cm) - Length 3.0 4 -Area of Debridement (cm) - Width 2.0 2 -Total Square (Area) (cm) 6.00 8 -Tunneling No No -Undermining/Tunneling Yes No -Undermining/Tunneling Starts (O'clock 1 ) -Undermining/Tunneling Ends (O'clock) 2 -Maximum Distance (cm) 3.8 -Circular Undermining No No -Wound/Ulcer Outcome Not Healed Not Healed -Ulcer Cleansing Rinsed/ Rinsed/ Irrigated with Irrigated with Saline Saline -Foul Odor after Cleansing No No -Bioengineered Tissue No No -Bleeding Controlled with Pressure Pressure -Treatment Response Procedure Procedure Tolerated Well Tolerated Well -Offloading No No -Debridement - Muscle / Fascia, 1st Yes Yes 20sq cm Pain Scale: 0-10 Numeric Is Patient Pain Free? Yes Yes - Nurse 3 - General Ulcer D/C NN Start: 11/28/24 14:02 Freq: Status: Active Protocol: Activity Type Activity Date Activity User E-sign Co-sign Detail Recorded Client Recorded Date Recorded By Document 11/28/24 14:48 KW [id number] 11/28/24 14:49 KW Document 12/10/24 15:59 KW [id number] 12/10/24 16:00 KW 11/28/24 12/10/24 14:48 15:59 Wound Care Center Nurse 3 #2 L Heel -Primary Dressing Applied Aquacel AG 4x4 -Primary Dressing Covered/Secured with Dry Gauze & Roll Gauze, Secured with Tape -Aquacel AG 4x4 1 #1 Sacral Cluster -Primary Dressing Applied Sacral Foam Border -Other Dressing AQUACEL AG -Primary Dressing Covered/Secured with Dry Gauze -Sacral Foam Border 1 Left -Tubular Bandage Double Layer -Size of Tubigrip Used Size E -Size E ($) 2 Pain Scale: 0-10 Numeric Is Patient Pain Free? Yes Yes - Visit Discharge Discharge Condition Stable Stable Ambulatory Status Wheelchair Wheelchair Transportation Private Auto Private Auto Accompanied by Medication Reconcilliation completed & No No provided to patient/care provider Clinical Summary of Care Provided Yes Yes #2 L Heel -Primary Dressing Applied Aquacel AG 4x4 -Primary Dressing Covered/Secured with Dry Gauze & Roll Gauze, Secured with Tape -Aquacel AG 4x4 1 #1 Sacral Cluster -Other Dressing aquacel ag -Primary Dressing Covered/Secured with Dry Gauze, Secured with Tape -Wound Comment(s) to start vac once delivered Left -Tubular Bandage Single Layer -Size of Tubigrip Used Size E -Size E ($) 1 Additional Wound Wound debrided: Sacral wound Laterality: Not Applicable Wound Grade/Stage: 3 Type of Debridement: Excisional debridement Anesthesia Used: 4% Lidocaine Solution Depth: to muscle (and fascia ) Percentage of wound debrided: 100 Instrument Used: 7mm curette Severity: Necrosis of Muscle Amount of bleeding with debridement: Moderate Bleeding Controlled with: Compression and gauze and - (Additionally used 20 cc of 1% lidocaine with 1-200,000 epinephrine for hemostasis) Patient tolerated procedure: Patient tolerated procedure well Charges/Coding Visit Charges Office Visits / Consults: 06130 OV L5 New 60min (With 25 modifier) Procedures Integumentary [id number]: [id number] Ginette musc/fascia 20 sq cm/< Assessment/Plan Assessment/Plan (1) Pressure ulcer of left heel, stage 3: CODE(S): L89.623 - Pressure ulcer of left heel, stage 3 (2) Sacral decubitus ulcer, stage IV: CODE(S): L89.154 - Pressure ulcer of sacral region, stage 4 PLAN: Plan I discussed the patient's case with Dr. Moore from vascular surgery I have ordered lower extremity ankle-brachial indices and venous duplex ultrasonography and referred him to vascular surgery. I have also ordered an x-ray of the left foot to check for erosive changes of the bone of the left calcaneus. Foot debridement was deferred today given that the patient is on Eliquis and there was some bleeding from the sacral wound (albeit hemostasis obtained in clinic). Also ordering nutrition labs. Follow-up with me in 2 weeks Continue pressure offloading with low air loss mattress Continue Aquacel Ag to the left heel and the sacral ulcer (twice daily)
== END 2024-12-14 23:59 | disposition home or self-care (01) ==
LOC: WC 14:15
PROVIDERS: PCP Family Medicine; Referring Provider Family Medicine; Visit Provider Nurse Practitioner Family
DX: L89.624 Pressure ulcer of left heel, stage 4 (principal); L89.154 Pressure ulcer of sacral region, stage 4; C91.10 Chronic lymphocytic leukemia of B-cell type not having achieved remission; E11.9 Type 2 diabetes mellitus without complications; I10 Essential (primary) hypertension; I25.10 Atherosclerotic heart disease of native coronary artery without angina pectoris; M48.061 Spinal stenosis, lumbar region without neurogenic claudication; E78.5 Hyperlipidemia, unspecified; Z74.09 Other reduced mobility; Z79.82 Long term (current) use of aspirin; Z79.84 Long term (current) use of oral hypoglycemic drugs; Z79.01 Long term (current) use of anticoagulants; Z79.899 Other long term (current) drug therapy; Z86.718 Personal history of other venous thrombosis and embolism; Z87.39 Personal history of other diseases of the musculoskeletal system and connective tissue
CPT/HCPCS: 11042; 11043

== ENCOUNTER → 2024-12-14 | Outpatient (CLI) | payer MEDICARE, SELFPAY ==
[2024-12-14 16:03] LABS: Absolute Lymphocyte Count 1.17 X10^3/uL (0.83-4.51); Absolute Neutrophil Count 5.4 X10^3/uL (2.0-7.7); Basophil# 0.05 X10^3/uL; Basophil% 0.7 % (0-1); Eosinophil# 0.09 X10^3/uL; Eosinophils% 1.2 % (0-5); Hematocrit 38.6 % (40-54); Hemoglobin 11.7 g/dL (13.0-16.5); Lymphocyte # 1.17 X10^3/ul (0.83-4.51); Lymphocyte % 15.7 % (19-41); Mean Corp Hgb Conc 30.3 g/dL (32-36); Mean Corpuscular Hgb 29.5 pg (27.0-32.0); Mean Corpuscular Volume 97.5 fL (80-94); Mean Platelet Vol. 10.9 fl (6.2-12.0); Monocyte# 0.65 X10^3/uL; Monocyte% 8.7 % (0-10); NRBC Flagged by Analyzer 0 % (0-5); Neutrophil # 5.42 X10^3/uL (2.7-7.7); Neutrophil % 72.6 % (47-70); Platelet Count 158 K/mm3 (150-450); RBC Distribution Width CV 15.8 % (11.6-14.6); RBC Distribution Width SD 56.5 fl (35.1-43.9); Red Blood Count 3.96 M/mm3 (4.6-6.2); White Blood Count 7.5 K/mm3 (4.4-11.0)
[2024-12-14 16:24] LABS: ALB/GLOB Ratio 1.7 RATIO (0.9-2.4); AST(SGOT) 17 U/L (<=37); Alanine Aminotransfer ALT/SGPT 15 U/L (<=46); Albumin, Serum 3.4 g/dL (3.4-4.8); Alkaline Phosphatase 140 U/L (40-129); Anion Gap 11 (5-15); BUN 23 mg/dL (4-19); BUN/Creat Ratio 26.9 RATIO (10-20); Calcium 9.3 mg/dL (7.6-11.0); Carbon Dioxide 27.7 mmol/L (22.0-29.0); Chloride 103 mmol/L (96-108); Creatinine, Serum 0.87 mg/dL (0.70-1.20); EST Glomerular Filtration Rate 86 (>60); Glucose 168 mg/dL (70-99); Protein, Total 5.4 g/dL (5.9-8.4); Sodium Level 142 mmol/L (133-145); Total Bilirubin 0.41 mg/dL (0.00-1.30)
[2024-12-14 23:43] LABS: Hemoglobin A1c 6.7 % (<=5.6)
[2024-12-16 09:07] LABS: Prealbumin 27 mg/dL (9-32)
== END | disposition home or self-care (01) ==
LOC: HHLAB 15:31
PROVIDERS: Physician Assistant Medical; PCP Family Medicine; Referring Provider Family Medicine; Visit Provider Family Medicine
DX: E11.621 Type 2 diabetes mellitus with foot ulcer (principal); L89.154 Pressure ulcer of sacral region, stage 4; L97.429 Non-pressure chronic ulcer of left heel and midfoot with unspecified severity; I48.0 Paroxysmal atrial fibrillation; Z79.01 Long term (current) use of anticoagulants
CPT/HCPCS: 80053; 83036; 84134; 85025

== ENCOUNTER 2025-01-07 10:00 | Outpatient (RCR) | payer MEDICARE, SELFPAY ==
[2024-12-15 00:53] VITALS: BP 121/58; PULSE 73; RESP 18; TEMP 35.8; BMI 31.6
[2024-12-17 09:46] VITALS: BP 120/64; PULSE 66; RESP 18; TEMP 36.3; BMI 31.6
--- NOTE | 2024-12-17 15:55 | PCM.WC.PN ---
History of Present Illness Date of Service: 12/17/24 Chief Complaint: Follow-up on buttocks right and left heel wounds that have been going on for months. History of Wound: Chief Complaint: Follow-up on buttocks right and left heel wounds that have been going on for months. 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 He has not walked in several years. He is able to stand up to perform transfers, but does not move his ankle joints. He lays on his chair most of the day. And has developed a sacral wound that he has been following at the wound care center for as well as a left calcaneal wound in the setting of a recent hospitalization this past year, both of which he has been following here at the wound center with various advanced practice providers. Wound culture of left heel ulcer from 08/08/24 positive for MDRO Pseudomonas aeruginosa. Referral to infectious disease for treatment. MRI of Pelvis 08/16/24 - Sacral decubitus ulcer with sacrococcygeal osteomyelitis. Treated by infectious disease with long-term course of IV antibiotics. Progress of Wound: The sacral ulcer with bone palpable but covered with granulation tissue and is beefy pink. There is undermining present, which is stable. The perineal ulcer (skin tear proximal to sacral ulcer) remains healed. Left medial heel appears improved with pink ulcer bed and much less non viable tissue present. He is sleeping on the low air loss mattress. 10 December 2024: Patient reports that he has not had any vascular workup for the lower extremity. He has a history of a DVT in the left lower extremity in the remote history and remains on Eliquis for anticoagulation. He reports episodic swelling in the left lower extremity that appears to be worsening the condition of the wound. He is not having any shortness of breath. He is not having any systemic signs or symptoms of infection. Current encounter, 17 December 2024: Doing well with wound care (VAC dressings) which started this past Tuesday. They have an appointment for ABIs and US for evaluation of the lower extremity. He has not gotten his xray of the foot yet, but is planning to get that soon (discussed). Labs obtained 14 Dec 2024 A1C 6.7 Prealb 27 Alb 3.4 Objective Data Objective Data Vital Signs: Vital Signs Temp Pulse Resp BP 97.3 F L 66 18 120/64 12/17/24 09:46 12/17/24 09:46 12/17/24 09:46 12/17/24 09:46 Weight: 220 lb 0.271 oz Body Mass Index (BMI) 31.6 Charges/Coding Procedures Integumentary [id number]: [id number] Ginette musc/fascia 20 sq cm/< Physical Exam Narrative Sacral wound 3 x 3 cm and 2 cm deep. No exposed bone there is granulation over the bone. Periwound clean without any signs of induration. No fluid collections. Better granulation today since last week after the VAC was started Motor: 4 out of 5 hip flexion and extension bilaterally, 4 out of 5 knee flexion and extension bilaterally, 0 out of 5 foot plantarflexion and dorsiflexion. Sensation: No sensation to light touch on the feet. Consistent with peripheral neuropathy. Vascular: No palpable pulses but the feet are warm bilaterally. Extremity Extremity Narrative: Left plantar wound, minimal soft tissue over the calcaneus 5 x 4 cm and 0.1 deep No signs of infection today Debridement Note Debridement Note Wound debrided: Sacral wound Laterality: Not Applicable Wound Grade/Stage: 3 Type of Debridement: Excisional debridement Anesthesia Used: 4% Lidocaine Solution Depth: to muscle Percentage of wound debrided: 100 Instrument Used: 7mm curette Severity: Necrosis of Muscle Amount of bleeding with debridement: Mild Bleeding Controlled with: Compression and gauze Patient tolerated procedure: Patient tolerated procedure well Post-Debridement Measurements and Additional Note: Post-Debridement Measurements/Treatment - Nurse 1 - General Ulcer Assessment Start: 12/17/24 09:46 Freq: Status: Active Protocol: CHEL Activity Type Activity Date Activity User E-sign Co-sign Detail Recorded Client Recorded Date Recorded By Document 12/17/24 09:46 DL [id number] 12/17/24 09:58 DL 12/17/24 09:46 - Today's Visit Information Type of service Follow-up Visit (Physician/[employer]EL[employer] ) Arrival Mode Wheelchair Transfer Assistance None Patient Identification Verified (Name & Yes ) Patient Requires Transmission-Based No Precautions Height and Weight Body Mass Index (BMI) 31.6 BMI Classification Obese Vital Signs Temperature (97.8 F-99.1 F) 97.3 F L Temperature Source Temporal Pulse Rate (60-100) 66 Pulse Location Monitor Respiratory Rate (12-18) 18 Respiratory rate source Observation Blood Pressure (90/60-120/80) 120/64 Blood Pressure Mean 82 Source Monitor History Since Last Visit- (Skip if this is Patient's initial visit) Have you changed medications since your No last visit? Any new allergies or adverse reactions No Had a fall/change in ADL's that may No increase risk of falls Signs or symptoms of abuse and/or No neglect since last visit Have you been in the hospital since your No last visit? Has dressing in place as prescribed Yes Has compression in place as prescribed N/A Has offloadiing in place as prescribed Yes Experienced any changes in pain level or No management Left Footwear Surgical Shoe with pressure relief insole Right Footwear Regular Shoe Pain Scale: 0-10 Numeric Is Patient Pain Free? Yes WC - Nurse 1 - General Ulcer Measurement Start: 12/17/24 09:46 Freq: Status: Active Protocol: Activity Type Activity Date Activity User E-sign Co-sign Detail Recorded Client Recorded Date Recorded By Document 12/17/24 09:46 DL [id number] 12/17/24 09:58 DL 12/17/24 09:46 Wound Center Nurse 1 #2 L Heel -Current Size (cm) - Length 4.9 -Current Size (cm) - Width 3.7 -Current Size (cm) - Depth 0.1 -Total Square Cm 18.13 -Photo Taken Yes -Exudate Amt Medium -Exudate Type Serosanguineous -Wound Margin Distinct, Outline Attached -Granulation Amt Medium (34-66%) -Granulation Quality [place] -Necrosis Amt Medium (34-66%) -Necrotic Tissue Type Adherent Slough -Structure Exposed N/A -Texture (Andreea-wound Skin Appearance) Scarring -Moisture (Andreea-wound Skin Appearance) Maceration -Color (Andreea-wound Skin Appearance) No Abnormality -Temperature (Andreea-wound Skin No Abnormality Appearance) (Pt Warm) -Tenderness on Palpation (Andreea-wound No Skin Appearance) -Ulcer Cleansing Soap and Water -Foul Odor after Cleansing No -Anesthetic Used 5% Lidocaine Gel #1 Sacral Cluster -Current Size (cm) - Length 2.9 -Current Size (cm) - Width 1.1 -Current Size (cm) - Depth 2.5 -Total Square Cm 3.19 -Photo Taken Yes -Exudate Amt Medium -Exudate Type Serosanguineous -Wound Margin Distinct, Outline Attached -Granulation Amt Large (67-100%) -Granulation Quality Red -Necrosis Amt None Present (0 %) -Structure Exposed N/A -Texture (Andreea-wound Skin Appearance) Scarring -Moisture (Andreea-wound Skin Appearance) Maceration -Color (Andreea-wound Skin Appearance) No Abnormality -Temperature (Andreea-wound Skin No Abnormality Appearance) (Pt Warm) -Ulcer Cleansing Soap and Water -Foul Odor after Cleansing No -Anesthetic Used 5% Lidocaine Gel Left Calf (cm) 36.6 Left Ankle (cm) 22 WC - Nurse 2 - General Ulcer CM Notes Start: 12/17/24 09:46 Freq: Status: Active Protocol: Activity Type Activity Date Activity User E-sign Co-sign Detail Recorded Client Recorded Date Recorded By Document 12/17/24 10:51 DS [id number] 12/17/24 10:57 DS 12/17/24 10:51 Wound Center Nurse 2 #2 L Heel -Time 10:45 -Correct Patient Yes -Procedure Performed No -Post Debridement (cm) - Length 5.0 -Post Debridement (cm) - Width 4.0 -Post Debridement (cm) - Depth 0.1 -Total Square (Post) (cm) 20.00 -Area of Debridement (cm) - Length 5.0 -Area of Debridement (cm) - Width 4.0 -Total Square (Area) (cm) 20.00 -Tunneling No -Undermining/Tunneling No -Circular Undermining No -Wound/Ulcer Outcome Not Healed #1 Sacral Cluster -Time 10:45 -Correct Patient Yes -Correct Side, Site, Position Yes -Correct Procedure Yes -Procedure Performed Yes -Type of Procedure Debridement -Clinical Debridement Subcutaneous -Tissue Removed Subcutaneous -Post Debridement (cm) - Length 3.0 -Post Debridement (cm) - Width 3.0 -Post Debridement (cm) - Depth 1.0 -Total Square (Post) (cm) 9.00 -Area of Debridement (cm) - Length 3.0 -Area of Debridement (cm) - Width 3.0 -Total Square (Area) (cm) 9.00 -Tunneling No -Undermining/Tunneling No -Circular Undermining No -Wound/Ulcer Outcome Not Healed -Ulcer Cleansing Rinsed/ Irrigated with Saline -Foul Odor after Cleansing No -Bioengineered Tissue No -Bleeding Controlled with Pressure -Treatment Response Procedure Tolerated Well -Debridement - Subq, 1st 20sq cm Yes Pain Scale: 0-10 Numeric Is Patient Pain Free? Yes - Nurse 3 - General Ulcer D/C NN Start: 12/17/24 09:46 Freq: Status: Active Protocol: Activity Type Activity Date Activity User E-sign Co-sign Detail Recorded Client Recorded Date Recorded By Document 12/17/24 11:00 DL [id number] 12/17/24 11:07 DL 12/17/24 11:00 Wound Care Center Nurse 3 #2 L Heel -Ulcer Cleansing Rinsed/ Irrigated with Saline -Foul Odor after Cleansing No -Primary Dressing Applied Aquacel AG 4x4 -Primary Dressing Covered/Secured with Dry Gauze & Roll Gauze, Secured with Tape -Aquacel AG 4x4 1 #1 Sacral Cluster -Ulcer Cleansing Rinsed/ Irrigated with Saline -Foul Odor after Cleansing No -Negative Pressure Wound Therapy Continue -NPWT Application Charge NPWT & Debridement (nc ) -Setting (mmHg) 125 -Negative Pressure is Continuous Andreea-Wound Care Barrier Treatment Response Procedure Tolerated Well Pain Scale: 0-10 Numeric Is Patient Pain Free? Yes WC - Visit Discharge Discharge Condition Stable Ambulatory Status Wheelchair Transportation Private Auto Facility Type Home Health Orders Sent Yes Assessment/Plan Assessment/Plan (1) Pressure ulcer of left heel, stage 3: CODE(S): L89.623 - Pressure ulcer of left heel, stage 3 (2) Sacral decubitus ulcer, stage IV: CODE(S): L89.154 - Pressure ulcer of sacral region, stage 4 PLAN: Plan I discussed the patient's case with Dr. Moore from vascular surgery (referral made to his office for evaluation). Scheduling I have ordered lower extremity ankle-brachial indices and venous duplex ultrasonography and referred him to vascular surgery. I have also ordered an x-ray of the left foot to check for erosive changes of the bone of the left calcaneus. Foot debridement was deferred again today given that the patient is on Eliquis and there was some bleeding from the sacral wound (albeit hemostasis obtained in clinic). Nutrition labs reviewed, adequate for wound healing. Follow-up with me in 2 weeks after vascular work up and xray. Anticipate debridement, skin substitute/skin graft for foot. Continue VAC for sacrum (should granulate). Continue pressure offloading with low air loss mattress Continue Aquacel Ag to the left heel and the sacral ulcer (twice daily)
--- NOTE | 2025-01-01 12:08 | WC ---
Kelsi from called letting us know that this patient has a new wound and has some maceration. She started using Aquacel-AG to the area for now. Patient is scheduled to see Dr Sewell on 01/07 for his wound appt. I called Kelsi back letting her know that I received her message and left a voicemail.
--- NOTE | 2025-01-04 09:58 | VDLE_ITS ---
Reason For Study Reason For Study: Bilateral leg swelling RIGHT LEFT CFV is compressible, spontaneous, phasic, competent CFV is compressible, spontaneous, phasic, competent, and demonstrates normal augmentation. and demonstrates normal augmentation. FV is compressible, spontaneous, phasic, competent FV is compressible, spontaneous, phasic, competent and demonstrates normal augmentation. and demonstrates normal augmentation. POP V is compressible, spontaneous, phasic, competent POP V is compressible, phasic, and INCOMPETENT for and demonstrates normal augmentation. greater than 1.0 second. T/P Trunk is compressible. T/P Trunk is compressible. PTV is compressible. PTV is compressible. RT PerV is compressible. LT PerV is compressible. SFJ is competent and measures 0.49 cm. SFJ is competent and measures 0.58 cm. GSV proximal thigh measures 0.25 x 0.25 cm. GSV proximal thigh measures 0.56 x 0.55 cm. GSV above knee is competent. GSV at knee measures 0.50 x 0.50 cm. GSV at knee measures 0.18 x 0.17 cm. GSV is competent throughout. GSV below knee is INCOMPETENT for greater than 0.5 SSV mid calf is competent and measures 0.19 x 0.20 seconds. cm. ASV mid thigh is INCOMPETENT for greater than 0.5 seconds and measures 0.14 x 0.15 cm. SSV mid calf is competent and measures 0.21 x 0.22 cm. Procedure This is a venous duplex using B-mode, color flow and spectral Doppler. Exam performed in department. Patient was scanned in reverse Trendelenburg position during reflux assessment. A preliminary report was called and/or faxed to . VL/Venous Duplex US - [place] Extrem Interpretation Summary Deep veins of the lower extremities are bilaterally patent and compressible seg mentally. There is no evidence of deep vein thrombosis on either side. Valvular competence appears intact within the p roximal deep venous system on the right . On the left, the popliteal vein is incompetent. The great saphenous veins appea r bilaterally patent and compressible segmentally. Sapheno-femoral junctions are bilaterally competent . The right gr eat saphenous vein appears competent above the knee. The right great saphenous vein appears incompetent below the kn ee. The left great saphenous vein appears segmentally competent. Small saphenous veins are patent and competent bilateral ly. The accessory saphenous vein in the right mid-thigh is incompetent. Ordering Physician: Jeevan Sewell Referring Physician: Matt Flores Performed By: Alicia Luo RVT
--- NOTE | 2025-01-04 10:09 | ART_ITS ---
Reason For Study Reason For Study: Ulcer Procedure A bilateral lower extremity continuous wave Doppler with analog waveform analysis,segmental pressures,and ankle brachial indexes without exercise. Left Segmental Pressures Left brachial= 150mmHg. Left dorsalis pedis artery = >254mmHg. Left digit = 73 mmHg. The left dorsalis pedis waveforms are biphasic. Right Segmental Pressures Right brachial= 128mmHg. Right posterior tibial artery = >254mmHg. Right dorsalis pedis artery = >254mmHg. Right digit = 101 mmHg. The right dorsalis pedis waveforms are triphasic. The right posterior tibial artery waveforms are biphasic. Indices The right ankle brachial index by the dorsalis pedis is NC. The right ankle brachial index by the posterior tibial artery is NC. The right digital-brachial index is 0.67. The left ankle brachial index by the dorsalis pedis is NC. The left digital-brachial index is 0.49. VL/Lower Ext Art Exam w/o Exercis Interpretation Summary Biphasic and triphasic Doppler waveforms are noted at ankle level on the right. Biphasic Doppler waveforms are noted at ankle level on the left. Pulse-volume recordings appear satisfactory at all lev els bilaterally. Resting ankle-brachial indices could not be determined on either side due to the non-compressibility o f the vasculature at ankle level bilaterally. The right digital-brachial index is mildly diminished. The left di gital-brachial index is moderately diminished. There is evidence of arterial calcification at ankle level bilaterally, such th at resting ankle-brachial indices could not be determined. Arterial flow appears mildly diminished at digital level on the right, and moderately diminshed at digital level on the left. Ordering Physician: Jeevan Sewell Referring Physician: Matt Flores Performed By: Alicia Luo RVT
--- NOTE | 2025-01-04 11:40 | RAD_ITS ---
EXAM: XR Left Foot Complete, 3 or More Views CLINICAL INDICATION: ULCER TECHNIQUE: Frontal, lateral and oblique views of the left foot. COMPARISON: No relevant prior studies available. FINDINGS: BONES/JOINTS: Osteopenia. Mild degenerative change of the intertarsal joints. No obvious radiographic evidence of osteomyelitis. However, if clinical suspicion remains high, further evaluation with 3 phase bone scan or MRI is recommended. No acute fracture. No dislocation. No erosive changes to the osseous structures. SOFT TISSUES: Soft tissue swelling. No radiopaque foreign body. RAD/Foot min 3 Views IMPRESSION: No obvious radiographic evidence of osteomyelitis. However, if clinical suspici on remains high, further evaluation with 3 phase bone scan or MRI is recommended. Reading Location: [facility]
[2025-01-07 10:17] VITALS: BP 113/48; PULSE 66; RESP 18; TEMP 35; BMI 31.6
--- NOTE | 2025-01-07 10:31 | PN.PCM_ITS ---
History of Present Illness Date of Service: 01/07/25 Chief Complaint: Follow-up on buttocks right and left heel wounds that have been going on for months. History of Wound: Chief Complaint: Follow-up on buttocks right and left heel wounds that have been going on for months. 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 He has not walked in several years. He is able to stand up to perform transfers, but does not move his ankle joints. He lays on his chair most of the day. And has developed a sacral wound that he has been following at the wound care center for as well as a left calcaneal wound in the setting of a recent hospitalization this past year, both of which he has been following here at the wound center with various advanced practice providers. Wound culture of left heel ulcer from 08/08/24 positive for MDRO Pseudomonas aeruginosa. Referral to infectious disease for treatment s/p antibiotic regimen. MRI of Pelvis 08/16/24 - Sacral decubitus ulcer with sacrococcygeal osteomyelitis. Treated by infectious disease with long-term course of IV antibiotics. Progress of Wound: The sacral ulcer with bone palpable but covered with granulation tissue and is beefy pink. There is undermining present, which is stable. The perineal ulcer (skin tear proximal to sacral ulcer) remains healed. Left medial heel appears improved with pink ulcer bed and much less non viable tissue present. He is sleeping on the low air loss mattress. 10 December 2024: Patient reports that he has not had any vascular workup for the lower extremity. He has a history of a DVT in the left lower extremity in the remote history and remains on Eliquis for anticoagulation. He reports episodic swelling in the left lower extremity that appears to be worsening the condition of the wound. He is not having any shortness of breath. He is not having any systemic signs or symptoms of infection. 17 December 2024: Doing well with wound care (VAC dressings) which started this past Tuesday. They have an appointment for ABIs and US for evaluation of the lower extremity. He has not gotten his xray of the foot yet, but is planning to get that soon (discussed). Labs obtained 14 Dec 2024 A1C 6.7 Prealb 27 Alb 3.4 Subjective Subjective Current encounter, 07 January 2025: Imaging reviewed. No osteomyelitis on the xray of the foot. There were no DVT on venous study. Arterial study demonstrated noncompressible vessels 2/2 to significant calcifi cations of the vasculature Patient has been doing well overall, however. Tolerating dressing changes. Objective Data Objective Data Vital Signs: Vital Signs Temp Pulse Resp BP O2 Del Method 95.0 F L 66 18 113/48 L Room Air 01/07/25 10:17 01/07/25 10:17 01/07/25 10:17 01/07/25 10:17 01/07/25 10:17 Oxygen Delivery Method Room Air Weight: 220 lb 0.271 oz Body Mass Index (BMI) 31.6 Charges/Coding Procedures Integumentary 111xxx-113xx: 80110 Ginette subq tissue 20 sq cm/< Add On Codes: 55255 Ginette subq tissue add-on Physical Exam Narrative Sacral wound 3 x3 cm and1 cm deep. No exposed bone there is granulation over the bone. Tunnels superiorly about 1 cm. Periwound clean without any signs of induration. No fluid collections. Better granulation today since last week after the VAC was started Motor: 4 out of 5 hip flexion and extension bilaterally, 4 out of 5 knee flexion and extension bilaterally, 0 out of 5 foot plantarflexion and dorsiflexion. Sensation: No sensation to light touch on the feet. Consistent with peripheral neuropathy. Vascular: No palpable pulses but the feet are warm bilaterally. Extremity Extremity Narrative: Left plantar wound, minimal soft tissue over the calcaneus 4.5 x 5 cm and 0.1 deep No signs of infection today Debridement Note Debridement Note Wound debrided: Left plantar wound Laterality: Left Wound Grade/Stage: Stage 3 Type of Debridement: Excisional debridement Anesthesia Used: 4% Lidocaine Solution Depth: in the subcutaneous layer Percentage of wound debrided: 100 Instrument Used: 7mm curette Tissue Removed: Necrotic fat and biofilm Severity: Fat Layer Exposed Amount of bleeding with debridement: Moderate Bleeding Controlled with: Compression and gauze, Silver Nitrate and - (1% lidocaine with 1:200,000 epinephrine ) Patient tolerated procedure: Patient tolerated procedure well Post-Debridement Measurements and Additional Note: Post-Debridement Measurements/Treatment SHAYLA - Nurse 1 - General Ulcer Assessment Start: 12/17/24 09:46 Freq: Status: Active Protocol: WC.LOWEXT Activity Type Activity Date Activity User E-sign Co-sign Detail Recorded Client Recorded Date Recorded By Document 12/17/24 09:46 DL [id number] 12/17/24 09:58 DL Document 01/07/25 10:17 KW [id number] 01/07/25 10:29 KW 12/17/24 01/07/25 09:46 10:17 WC - Today's Visit Information Type of service Follow-up Visit Follow-up Visit (Physician/BRAKE COUPLER DINKEY (Physician/BRAKE COUPLER DINKEY ) ) Arrival Mode Wheelchair Wheelchair Transfer Assistance None Accompanied by Patient Identification Verified (Name & Yes Yes ) Patient Requires Transmission-Based No Precautions Height and Weight Body Mass Index (BMI) 31.6 31.6 BMI Classification Obese Obese Vital Signs Temperature (97.8 F-99.1 F) 97.3 F L 95.0 F L Temperature Source Temporal Temporal Pulse Rate (60-100) 66 66 Pulse Location Monitor Monitor Respiratory Rate (12-18) 18 18 Respiratory rate source Observation Observation Oxygen Delivery Method Room Air Blood Pressure (90/60-120/80) 120/64 113/48 L Blood Pressure Mean (mm Hg) 82 69 Source Monitor Monitor Position Semi-Fowlers Blood Pressure Location Left Arm History Since Last Visit- (Skip if this is Patient's initial visit) Have you changed medications since your No No last visit? Any new allergies or adverse reactions No No Had a fall/change in ADL's that may No No increase risk of falls Signs or symptoms of abuse and/or No No neglect since last visit Have you been in the hospital since your No No last visit? Has dressing in place as prescribed Yes Yes Has compression in place as prescribed N/A N/A Has offloadiing in place as prescribed Yes N/A Experienced any changes in pain level or No No management Left Footwear Surgical Shoe Regular Shoe with pressure relief insole Right Footwear Regular Shoe Regular Shoe Pain Scale: 0-10 Numeric Is Patient Pain Free? Yes Yes L heel -Intensity 5 -Alleviating Factors/Interventions Medication, Turning/ Repositioning sacral -Intensity 5 -Alleviating Factors/Interventions Medication, Inactivity/ Resting,Turning /Repositioning WC - Nurse 1 - General Ulcer Measurement Start: 12/17/24 09:46 Freq: Status: Active Protocol: Activity Type Activity Date Activity User E-sign Co-sign Detail Recorded Client Recorded Date Recorded By Document 12/17/24 09:46 DL [id number] 12/17/24 09:58 DL Document 01/07/25 10:17 KW [id number] 01/07/25 10:29 KW 12/17/24 01/07/25 09:46 10:17 Wound Center Nurse 1 #2 L Heel -Current Size (cm) - Length 4.9 5.2 -Current Size (cm) - Width 3.7 3.6 -Current Size (cm) - Depth 0.1 0.1 -Total Square Cm 18.13 18.72 -Photo Taken Yes -Exudate Amt Medium Medium -Exudate Type Serosanguineous Serosanguineous -Wound Margin Distinct, Thickened Outline Attached -Granulation Amt Medium (34-66%) Medium (34-66%) -Granulation Quality [place] Red -Necrosis Amt Medium (34-66%) Medium (34-66%) -Necrotic Tissue Type Adherent Slough Adherent Slough -Structure Exposed N/A -Texture (Andreea-wound Skin Appearance) Scarring Assessed -Moisture (Andreea-wound Skin Appearance) Maceration Maceration -Color (Andreea-wound Skin Appearance) No Abnormality Assessed -Temperature (Andreea-wound Skin No Abnormality No Abnormality Appearance) (Pt Warm) (Pt Warm) -Tenderness on Palpation (Andreea-wound No No Skin Appearance) -Ulcer Cleansing Soap and Water Rinsed/ Irrigated with Saline -Foul Odor after Cleansing No No -Anesthetic Used 5% Lidocaine 5% Lidocaine Gel Gel #1 Sacral Cluster -Current Size (cm) - Length 2.9 2.2 -Current Size (cm) - Width 1.1 1 -Current Size (cm) - Depth 2.5 1.3 -Total Square Cm 3.19 2.2 -Date of Last Picture (Recall this 01/07/25 field) -Photo Taken Yes -Undermining/Tunneling Yes -Undermining/Tunneling Starts (O'clock 7 ) -Undermining/Tunneling Ends (O'clock) 4 -Maximum Distance (cm) 3.6 -Exudate Amt Medium Medium -Exudate Type Serosanguineous Serosanguineous -Wound Margin Distinct, Distinct, Outline Outline Attached Attached -Granulation Amt Large (67-100%) Medium (34-66%) -Granulation Quality Red Pale,Red -Necrosis Amt None Present (0 Medium (34-66%) %) -Necrotic Tissue Type Adherent Slough -Structure Exposed N/A -Texture (Andreea-wound Skin Appearance) Scarring Assessed -Moisture (Andreea-wound Skin Appearance) Maceration Assessed, Maceration -Color (Andreea-wound Skin Appearance) No Abnormality Assessed -Temperature (Andreea-wound Skin No Abnormality No Abnormality Appearance) (Pt Warm) (Pt Warm) -Tenderness on Palpation (Andreea-wound No Skin Appearance) -Ulcer Cleansing Soap and Water Soap and Water -Foul Odor after Cleansing No No -Anesthetic Used 5% Lidocaine 4% Lidocaine Gel Solution Left Calf (cm) 36.6 Left Ankle (cm) 22 WC - Nurse 2 - General Ulcer CM Notes Start: 12/17/24 09:46 Freq: Status: Active Protocol: Activity Type Activity Date Activity User E-sign Co-sign Detail Recorded Client Recorded Date Recorded By Document 12/17/24 10:51 DS [id number] 12/17/24 10:57 DS 12/17/24 10:51 Wound Center Nurse 2 #2 L Heel -Time 10:45 -Correct Patient Yes -Procedure Performed No -Post Debridement (cm) - Length 5.0 -Post Debridement (cm) - Width 4.0 -Post Debridement (cm) - Depth 0.1 -Total Square (Post) (cm) 20.00 -Area of Debridement (cm) - Length 5.0 -Area of Debridement (cm) - Width 4.0 -Total Square (Area) (cm) 20.00 -Tunneling No -Undermining/Tunneling No -Circular Undermining No -Wound/Ulcer Outcome Not Healed #1 Sacral Cluster -Time 10:45 -Correct Patient Yes -Correct Side, Site, Position Yes -Correct Procedure Yes -Procedure Performed Yes -Type of Procedure Debridement -Clinical Debridement Subcutaneous -Tissue Removed Subcutaneous -Post Debridement (cm) - Length 3.0 -Post Debridement (cm) - Width 3.0 -Post Debridement (cm) - Depth 1.0 -Total Square (Post) (cm) 9.00 -Area of Debridement (cm) - Length 3.0 -Area of Debridement (cm) - Width 3.0 -Total Square (Area) (cm) 9.00 -Tunneling No -Undermining/Tunneling No -Circular Undermining No -Wound/Ulcer Outcome Not Healed -Ulcer Cleansing Rinsed/ Irrigated with Saline -Foul Odor after Cleansing No -Bioengineered Tissue No -Bleeding Controlled with Pressure -Treatment Response Procedure Tolerated Well -Debridement - Subq, 1st 20sq cm Yes Pain Scale: 0-10 Numeric Is Patient Pain Free? Yes - Nurse 3 - General Ulcer D/C NN Start: 12/17/24 09:46 Freq: Status: Active Protocol: Activity Type Activity Date Activity User E-sign Co-sign Detail Recorded Client Recorded Date Recorded By Document 12/17/24 11:00 DL [id number] 12/17/24 11:07 DL 12/17/24 11:00 Wound Care Center Nurse 3 #2 L Heel -Ulcer Cleansing Rinsed/ Irrigated with Saline -Foul Odor after Cleansing No -Primary Dressing Applied Aquacel AG 4x4 -Primary Dressing Covered/Secured with Dry Gauze & Roll Gauze, Secured with Tape -Aquacel AG 4x4 1 #1 Sacral Cluster -Ulcer Cleansing Rinsed/ Irrigated with Saline -Foul Odor after Cleansing No -Negative Pressure Wound Therapy Continue -NPWT Application Charge NPWT & Debridement (nc ) -Setting (mmHg) 125 -Negative Pressure is Continuous Andreea-Wound Care Barrier Treatment Response Procedure Tolerated Well Pain Scale: 0-10 Numeric Is Patient Pain Free? Yes WC - Visit Discharge Discharge Condition Stable Ambulatory Status Wheelchair Transportation Private Auto Facility Type Home Health Orders Sent Yes Assessment/Plan Assessment/Plan (1) Pressure ulcer of left heel, stage 3: CODE(S): L89.623 - Pressure ulcer of left heel, stage 3 (2) Sacral decubitus ulcer, stage IV: CODE(S): L89.154 - Pressure ulcer of sacral region, stage 4 PLAN: deferred debridement today PLAN: Plan I discussed the patient's case with Dr. Moore from vascular surgery (referral made to his office for evaluation). Scheduling Sacral wound debridement was deferred again today given that the patient is on Eliquis and there was some bleeding from the heal wound (albeit hemostasis obtained in clinic). Nutrition labs reviewed, adequate for wound healing. Follow-up with me in 2 weeks after vascular surgery visit (to clear for wound healing or recommend intervention v. discussion of options). Anticipate debridement, skin substitute/skin graft for foot. Continue VAC for sacrum (should granulate). Continue pressure offloading with low air loss mattress PODUS boot for pressure offloading of the foot Continue Aquacel Ag to the left heel and the sacral ulcer (twice daily)
--- NOTE | 2025-01-07 10:48 | LES_PTH ---
PATIENT: BRANDY LOMELI LOC: U#:[id number] AGE/SX: 84/M ROOM: RE01/07/[address]: Dr. Jeevan Sewell MD : 1940 BED: DIS: 01/14/2025 SPEC #: [id number] RECD: 01/08/25 10:18 STATUS: SHAE REMahsa #: [id number] DAMIAN: 01/07/25 10:[address]: Jeevan Sewell DEPT: SURGICAL PATHOLOGY RECD BY: Vimal Mccain ENTERED: 01/08/25 10:19 SP TYPE: Lesion OTHR DR: Dr. Matt Flores, DO Tissues: A - Foot, NOS Procedures: Special Stain Group I Surgery Specimen Level IV GMS Stain (control) HEADER OPERATION: Tissue excision from left heel ulcer PRE-OP DIAGNOSIS: Non-healing chronic ulcer TISSUE SUBMITTED: A- Tissue biopsy from left heel ulcer MICROSCOPIC DIAGNOSIS A. LEFT HEEL SKIN,ULCER, SHAVE BIOPSY: - HYPERKERATOSIS WITH PARAKERATOSIS AND FOCAL ACUTE INFLAMMATION. - A PASD STAIN IS NEGATIVE FOR FUNGAL ORGANISMS. MICROSCOPIC DESCRIPTION Slides are reviewed. Matched control reacted appropriately. GROSS DESCRIPTION Received in formalin labeled, Brandy Lomeli, and designated left heel biopsy, are two shave biopsies of hollins to focally hollins-brown, granular skin that measure 1.2 x 0.5 x 0.2 cm, and 0.7 x 0.5 x 0.2 cm. The apparent margin of the longer fragment is inked blue and the shorter is inked black. The shorter fragment is bisected. Totally submitted in one cassette. 01/08/2025 CPT:47258, 97640
--- NOTE | 2025-01-11 13:58 | WC ---
[facility], LM requesting to add Tuesday's to pt home health visit schedule. This nurse called back and LM to confirm the additional visit on the weeks pt is not being seen here in the wound center.
== END 2025-01-14 23:59 | disposition home or self-care (01) ==
LOC: WC 10:00
PROVIDERS: PCP Family Medicine; Referring Provider Family Medicine; Visit Provider Surgery Plastic and Reconstructive Surgery
DX: L89.154 Pressure ulcer of sacral region, stage 4 (principal); L89.623 Pressure ulcer of left heel, stage 3; L98.492 Non-pressure chronic ulcer of skin of other sites with fat layer exposed; M48.061 Spinal stenosis, lumbar region without neurogenic claudication; M79.89 Other specified soft tissue disorders; Z79.01 Long term (current) use of anticoagulants; Z79.84 Long term (current) use of oral hypoglycemic drugs; Z79.82 Long term (current) use of aspirin; Z79.899 Other long term (current) drug therapy; Z87.39 Personal history of other diseases of the musculoskeletal system and connective tissue; Z86.718 Personal history of other venous thrombosis and embolism; I73.9 Peripheral vascular disease, unspecified
CPT/HCPCS: 11042; 11045; 73630; 88304; 88305; 88312; 93923; 93970; 97605

== ENCOUNTER 2025-02-11 09:30 | Outpatient (RCR) | payer MEDICARE, SELFPAY ==
[2025-01-15 00:16] VITALS: BP 113/48; PULSE 66; RESP 18; TEMP 35; BMI 31.6
--- NOTE | 2025-01-18 12:15 | WC ---
[facility] nurse Kelsi called and LM to report she noticed a new musty odor to pt sacral wound. No signs or symptoms of infection.
--- NOTE | 2025-01-21 | LES_PTH ---
PATIENT: BRANDY LOMELI LOC: U#:[id number] AGE/SX: 84/M ROOM: RE02/11/[address]: Dr. Jeevan Sewell MD : 1940 BED: DIS: 02/13/2025 SPEC #: [id number] RECD: 01/22/25 10:33 STATUS: SHAE RODRIGUES #: [id number] DAMIAN: 01/21/25 00:[address]: Jeevan Sewell DEPT: SURGICAL PATHOLOGY RECD BY: Vimal Mccain ENTERED: 01/22/25 10:33 SP TYPE: Lesion OTHR DR: Dr. Matt Flores, Tissues: A - Skin of forearm, NOS Procedures: Surgery Specimen Level IV HEADER OPERATION: Left forearm neoplasm biopsy PRE-OP DIAGNOSIS: Left forearm neoplasm TISSUE SUBMITTED: A- Left forearm lesion MICROSCOPIC DIAGNOSIS A. 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 MICROSCOPIC DESCRIPTION Slides are reviewed. GROSS DESCRIPTION A. Received in formalin in a container labeled with the patient's name, date of , and L FA is an unoriented and cylindrical punch biopsy of white-garcia possible skin measuring 0.5 x 0.5 cm with a depth of 0.7 cm. The epidermis is diffusely papillary and friable with an ill-defined 0.2 x 0.1 cm red-brown discoloration at the periphery. The deep margin is inked green, and it is bisected to reveal white-garcia, indurated surfaces. The discoloration does not appear to extend to the deep margin. Submitted entirely in A1. [facility] 01-22-2025 CPT:99834
[2025-01-21 10:19] VITALS: BP 126/63; PULSE 72; RESP 16; BMI 31.6
--- NOTE | 2025-01-21 11:43 | PCM.WC.PN ---
History of Present Illness Date of Service: 01/21/25 Chief Complaint: Follow-up on buttocks right and left heel wounds that have been going on for months. History of Wound: Chief Complaint: Follow-up on buttocks right and left heel wounds that have been going on for months. 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 He has not walked in several years. He is able to stand up to perform transfers, but does not move his ankle joints. He lays on his chair most of the day. And has developed a sacral wound that he has been following at the wound care center for as well as a left calcaneal wound in the setting of a recent hospitalization this past year, both of which he has been following here at the wound center with various advanced practice providers. Wound culture of left heel ulcer from 08/08/24 positive for MDRO Pseudomonas aeruginosa. Referral to infectious disease for treatment s/p antibiotic regimen. MRI of Pelvis 08/16/24 - Sacral decubitus ulcer with sacrococcygeal osteomyelitis. Treated by infectious disease with long-term course of IV antibiotics. Progress of Wound: The sacral ulcer with bone palpable but covered with granulation tissue and is beefy pink. There is undermining present, which is stable. The perineal ulcer (skin tear proximal to sacral ulcer) remains healed. Left medial heel appears improved with pink ulcer bed and much less non viable tissue present. He is sleeping on the low air loss mattress. 10 December 2024: Patient reports that he has not had any vascular workup for the lower extremity. He has a history of a DVT in the left lower extremity in the remote history and remains on Eliquis for anticoagulation. He reports episodic swelling in the left lower extremity that appears to be worsening the condition of the wound. He is not having any shortness of breath. He is not having any systemic signs or symptoms of infection. 17 December 2024: Doing well with wound care (VAC dressings) which started this past Tuesday. They have an appointment for ABIs and US for evaluation of the lower extremity. He has not gotten his xray of the foot yet, but is planning to get that soon (discussed). Labs obtained 14 Dec 2024 A1C 6.7 Prealb 27 Alb 3.4 Subjective Subjective 07 January 2025: Imaging reviewed. No osteomyelitis on the xray of the foot. There were no DVT on venous study. Arterial study demonstrated noncompressible vessels 2/2 to significant calcifications of the vasculature Patient has been doing well overall, however. Tolerating dressing changes. Current encounter, 21 January 2025: Doing well overall with dressing changes except there is been an odor coming from the sacral wound after the VAC changes, his would like us to look today. Patient has seen Dr. Farooq (heart doctor) this past week on 19 January 2025 and he discontinued his amiodarone and his blood thinner (patient has been regular with rate and rhythm). He has been off the blood thinner for greater than 48 hours now. Patient also has a follow-up of his ABIs with vascular surgery on 23 January 2025 (2 days from now) To assess need for intervention for increased blood flow to the foot wound. There is another area of concern in the left forearm today that the patient and his would like me to biopsy. It has been there for several months and growing. It is a scaly/scabby lesion on the left proximal dorsal forearm. Biopsy results (from biopsy on 07 January 2025) of the heel wound did not demonstrate any signs of malignancy. Objective Data Objective Data Vital Signs: Vital Signs Temp Pulse Resp BP O2 Del Method 95.0 F L 72 16 126/63 H Room Air 01/15/25 00:16 01/21/25 10:19 01/21/25 10:19 01/21/25 10:19 01/21/25 10:19 Oxygen Delivery Method Room Air Weight: 220 lb 0.271 oz Body Mass Index (BMI) 31.6 Charges/Coding Multi Select Codes Integumentary Integumentary CPT Codes: 12090 Ginette musc/fascia 20 sq [place]/< [place] 98040 Punch bx skin single lesion (51 and 59 modifiers (two separate problems) ) Physical Exam Narrative Sacral wound 2.5 x 2cm and1 cm deep. No exposed bone there is granulation over the bone. Tunnels superiorly about 1 cm. Periwound clean without any signs of induration. No fluid collections. Granulation tissue present. No signs of infection. Motor: 4 out of 5 hip flexion and extension bilaterally, 4 out of 5 knee flexion and extension bilaterally, 0 out of 5 foot plantarflexion and dorsiflexion. Sensation: No sensation to light touch on the feet. Consistent with peripheral neuropathy. Vascular: No palpable pulses but the feet are warm bilaterally. Lymph Lymphatic: no lymphadenopathy noted Lymphatic Narrative: No left axillary or left antecubital lymphadenopathy Cardio regular rate and regular rhythm Extremity Extremity Narrative: Left plantar wound, minimal soft tissue over the calcaneus 4.5 x 5 cm and 0.1 deep No signs of infection today Left upper extremity 2 x 2 cm dorsal proximal ulnar forearm scaly lesion with surrounding induration at the base. Debridement Note Debridement Note Wound debrided: Sacral wound Laterality: Not Applicable (Central) Wound Grade/Stage: 3 Type of Debridement: Excisional debridement Anesthesia Used: 4% Lidocaine Solution Depth: to muscle Percentage of wound debrided: 100 Instrument Used: 7mm curette Tissue Removed: Necrotic fibrinous exudate/biofilm at the base of wound over muscle/fascia Severity: Necrosis of Muscle (Exposed fascia at the base) Amount of bleeding with debridement: Moderate Bleeding Controlled with: Compression and gauze and - (1% lidocaine with 1-200,000 epinephrine (5 cc) ) Patient tolerated procedure: Patient tolerated procedure well Post-Debridement Measurements and Additional Note: Post-Debridement Measurements/Treatment - Nurse 1 - General Ulcer Assessment Start: 01/21/25 10:16 Freq: Status: Active Protocol: [email or web address] Activity Type Activity Date Activity User E-sign Co-sign Detail Recorded Client Recorded Date Recorded By Document 01/21/25 10:19 [id number] 01/21/25 10:25 01/21/25 10:19 - Today's Visit Information Type of service 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 ) Arrival Mode Wheelchair Transfer Assistance Other Transfer Assist (Other) 2 stand by Patient Identification Verified (Name & Yes ) Patient Requires Transmission-Based No Precautions Height and Weight Body Mass Index (BMI) 31.6 BMI Classification Obese Vital Signs Pulse Rate (60-100) 72 Pulse Location Monitor Respiratory Rate (12-18) 16 Respiratory rate source Observation Oxygen Delivery Method Room Air Blood Pressure (90/60-120/80) 126/63 H Blood Pressure Mean (mm Hg) 84 Source Monitor Position Sitting Blood Pressure Location Right Arm History Since Last Visit- (Skip if this is Patient's initial visit) Have you changed medications since your Yes last visit? Any new allergies or adverse reactions No Had a fall/change in ADL's that may No increase risk of falls Signs or symptoms of abuse and/or No neglect since last visit Have you been in the hospital since your No last visit? Has dressing in place as prescribed Yes Has compression in place as prescribed N/A Has offloadiing in place as prescribed N/A Experienced any changes in pain level or No management Left Footwear Diabetic Shoe Right Footwear Diabetic Shoe Pain Scale: 0-10 Numeric Is Patient Pain Free? Yes WC - Nurse 1 - General Ulcer Measurement Start: 01/21/25 10:16 Freq: Status: Active Protocol: Activity Type Activity Date Activity User E-sign Co-sign Detail Recorded Client Recorded Date Recorded By Document 01/21/25 10:19 MARK ANTHONY [id number] 01/21/25 10:25 MARK ANTHONY 01/21/25 10:19 Wound Center Nurse 1 #2 L Heel -Combined with other wound No -Current Size (cm) - Length 5 -Current Size (cm) - Width 4 -Current Size (cm) - Depth 0.1 -Total Square Cm 20 -Date of Last Picture (Recall this 01/21/25 field) -Photo Taken Yes -Tunneling No -Undermining/Tunneling No -Circular Undermining No -Exudate Amt Medium -Exudate Type Serosanguineous -Wound Margin Distinct, Outline Attached -Granulation Amt Medium (34-66%) -Granulation Quality Pale,Red -Slough/Fibrin Yes -Necrosis Amt Medium (34-66%) -Necrotic Tissue Type Adherent Slough -Texture (Andreea-wound Skin Appearance) Assessed -Moisture (Andreea-wound Skin Appearance) Assessed -Color (Anrdeea-wound Skin Appearance) Assessed, Erythema -Temperature (Andreea-wound Skin No Abnormality Appearance) (Pt Warm) -Tenderness on Palpation (Anderea-wound No Skin Appearance) -Ulcer Cleansing Soap and Water -Foul Odor after Cleansing No -Anesthetic Used 5% Lidocaine Gel #1 Sacral Cluster -Combined with other wound No -Current Size (cm) - Length 2.5 -Current Size (cm) - Width 1 -Current Size (cm) - Depth 3 -Total Square Cm 2.5 -Date of Last Picture (Recall this 01/21/25 field) -Photo Taken Yes -Circular Undermining No -Exudate Amt Medium -Exudate Type Serosanguineous -Wound Margin Thickened -Granulation Amt Large (67-100%) -Granulation Quality Red -Slough/Fibrin No -Necrosis Amt None Present (0 %) -Texture (Andreea-wound Skin Appearance) Assessed, Scarring -Moisture (Andreea-wound Skin Appearance) Assessed, Maceration -Color (Andreea-wound Skin Appearance) Assessed -Temperature (Andreea-wound Skin No Abnormality Appearance) (Pt Warm) -Tenderness on Palpation (Andreea-wound Yes Skin Appearance) -Ulcer Cleansing Soap and Water -Foul Odor after Cleansing No -Anesthetic Used 4% Lidocaine Solution WC - Nurse 2 - General Ulcer CM Notes Start: 01/21/25 10:16 Freq: Status: Active Protocol: Activity Type Activity Date Activity User E-sign Co-sign Detail Recorded Client Recorded Date Recorded By Document 01/21/25 11:06 DS [id number] 01/21/25 11:10 DS 01/21/25 11:06 Wound Center Nurse 2 5. left FA -Time 11:00 -Correct Patient Yes -Correct Side, Site, Position Yes -Correct Procedure Yes -Procedure Performed Yes -Type of Procedure Biopsy -Wound/Ulcer Outcome Not Healed -I&D / Paring / Biopsy Punch bx skin ( includes simple close, if done ), single lesion #2 L Heel -Time 11:00 -Correct Patient Yes -Procedure Performed No -Wound/Ulcer Outcome Not Healed #1 Sacral Cluster -Time 11:00 -Correct Patient Yes -Correct Side, Site, Position Yes -Correct Procedure Yes -Procedure Performed Yes -Type of Procedure Debridement -Clinical Debridement Muscle / Fascia -Tissue Removed Muscle,Fascia -Post Debridement (cm) - Length 2.5 -Post Debridement (cm) - Width 2.0 -Post Debridement (cm) - Depth 3.0 -Total Square (Post) (cm) 5.00 -Area of Debridement (cm) - Length 2.5 -Area of Debridement (cm) - Width 2.0 -Total Square (Area) (cm) 5.00 -Tunneling No -Undermining/Tunneling No -Circular Undermining No -Wound/Ulcer Outcome Not Healed -Ulcer Cleansing Rinsed/ Irrigated with Saline -Foul Odor after Cleansing No -Bioengineered Tissue No -Bleeding Controlled with Pressure,Silver Nitrate -Debridement - Muscle / Fascia, 1st Yes 20sq cm -Wound Comment(s) silver nitrate x3 Pain Scale: 0-10 Numeric Is Patient Pain Free? Yes SHAYLA - Nurse 3 - General Ulcer D/C NN Start: 01/21/25 10:16 Freq: Status: Active Protocol: Activity Type Activity Date Activity User E-sign Co-sign Detail Recorded Client Recorded Date Recorded By Document 01/21/25 11:36 [facility] [id number] 01/21/25 11:37 [facility] 01/21/25 11:36 Wound Care Center Nurse 3 5. left FA -Other Dressing drsg per ss shim plug cutter -Primary Dressing Covered/Secured with Dry Gauze, Secured with Tape -Other Covering post biopsy #2 L Heel -Ulcer Cleansing Soap and Water -Foul Odor after Cleansing No -Primary Dressing Applied Aquacel AG 4x4 -Other Dressing fluffed gauze, heel hat -Primary Dressing Covered/Secured with Dry Gauze & Roll Gauze, Secured with Tape -Aquacel AG 4x4 1 #1 Sacral Cluster -Ulcer Cleansing Rinsed/ Irrigated with Saline -Foul Odor after Cleansing No -Negative Pressure Wound Therapy Continue -Pieces of Black Foam Inserted 1 -NPWT Application Charge NPWT & Debridement (nc ) -Other Dressing vac applied per mark anthony rn Treatment Response Procedure Tolerated Well Pain Scale: 0-10 Numeric Is Patient Pain Free? Yes WC - Visit Discharge Discharge Condition Stable Ambulatory Status Wheelchair Transportation Private Auto Accompanied by Facility Type Home Health Assessment/Plan Assessment/Plan (1) Pressure ulcer of left heel, stage 3: CODE(S): L89.623 - Pressure ulcer of left heel, stage 3 PLAN: Deferred debridement today Nutrition labs reviewed, adequate for wound healing. Follow-up with me in 2 weeks after vascular surgery visit (to clear for wound healing or recommend intervention v. discussion of options). I talked to the patient that the risks, benefits, and alternatives to reconstruction with dermal substitute and eventual skin grafting. He is not interested in skin grafting and would like to try a skin substitute such as there is skin first. We are going to try that in clinic and will submit for approval. (2) Sacral decubitus ulcer, stage IV: CODE(S): L89.154 - Pressure ulcer of sacral region, stage 4 PLAN: Debrided, see above (3) Neoplasm of uncertain behavior of skin: CODE(S): D48.5 - Neoplasm of uncertain behavior of skin PLAN: Biopsy procedure Biopsy today in clinic with consent of patient. Local area was anesthetized with 5 cc of 1% lidocaine with 1-200,000 epinephrine. It was given time to take effect. The area was prepped in sterile fashion. A 5 mm punch biopsy was taken on the periphery of the lesion. Hemostasis was obtained with the epinephrine and the lidocaine but also with pressure and silver nitrate sticks. The patient tolerated the procedure well. The specimen was sent to pathology. Follow-up biopsy results. Band-Aid and Neosporin daily to the wound. PLAN: Plan I discussed the patient's case with Dr. Moore from vascular surgery, who will be seeing the patient on 23 January 2025 with CHYNA Gomez. Continue pressure offloading with low air loss mattress PODUS boot for pressure offloading of the foot Continue Aquacel Ag to the left heel and the sacral ulcer (twice daily)
--- NOTE | 2025-01-22 11:11 | WC ---
PHOTO 01/21/25 LEFT HEEL
--- NOTE | 2025-01-22 11:11 | WC ---
PHOTO 01/21/25 SACRUM
--- NOTE | 2025-01-23 15:41 | WC ---
Ashley Barrera transfers care of this patient over to Dr. Sewell as of 01/23/25
[2025-02-04 10:10] VITALS: BP 124/59; PULSE 71; RESP 18; TEMP 35.9; BMI 31.6
--- NOTE | 2025-02-04 12:13 | PN.PCM_ITS ---
History of Present Illness Date of Service: 02/04/25 Chief Complaint: Follow-up on buttocks right and left heel wounds that have been going on for months. History of Wound: Chief Complaint: Follow-up on buttocks right and left heel wounds that have been going on for months. History of Wound: Brandy Lomeli is an 84-year-old male with history of chronic lymphocytic leukemia currently on immunotherapy who is currently nonambulatory secondary to spinal stenosis of lumbar region. He has not walked in several years. He is able to stand up to perform transfers, but does not move his ankle joints. He lays on his chair most of the day. And has developed a sacral wound that he has been following at the wound care center for as well as a left calcaneal wound in the setting of a recent hospitalization this past year, both of which he has been following here at the wound center with various advanced practice providers. Wound culture of left heel ulcer from 08/08/24 positive for MDRO Pseudomonas aeruginosa. Referral to infectious disease for treatment s/p antibiotic regimen. MRI of Pelvis 08/16/24 - Sacral decubitus ulcer with sacrococcygeal osteomyelitis. Treated by infectious disease with long-term course of IV antibiotics. Progress of Wound: The sacral ulcer with bone palpable but covered with granulation tissue and is beefy pink. There is undermining present, which is stable. The perineal ulcer (skin tear proximal to sacral ulcer) remains healed. Left medial heel appears improved with pink ulcer bed and much less non viable tissue present. He is sleeping on the low air loss mattress. 10 December 2024: Patient reports that he has not had any vascular workup for the lower extremity. He has a history of a DVT in the left lower extremity in the remote history and remains on Eliquis for anticoagulation. He reports episodic swelling in the left lower extremity that appears to be worsening the condition of the wound. He is not having any shortness of breath. He is not having any systemic signs or symptoms of infection. 17 December 2024: Doing well with wound care (VAC dressings) which started this past Tuesday. They have an appointment for ABIs and US for evaluation of the lower extremity. He has not gotten his xray of the foot yet, but is planning to get that soon (discussed). Labs obtained 14 Dec 2024 A1C 6.7 Prealb 27 Alb 3.4 Objective Data Objective Data PATHOLOGY RESULTS Patient: BRANDY LOMELI Age/Sex: 84/M Attend Dr: Lynda #: [id number] Unit #: [id number] Loc: : 1940 Status: REG RCR Facility: [facility] Spec# :[id number] Spec Date: 01/21/[address]: Dr. Jeevan Sewell MD Spec Type: LES OPERATION: Left forearm neoplasm biopsy PRE-OP DIAGNOSIS: Left forearm neoplasm TISSUE SUBMITTED: A- Left forearm lesion MICROSCOPIC DIAGNOSIS A. 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 MICROSCOPIC DESCRIPTION Slides are reviewed. GROSS DESCRIPTION A. Received in formalin in a container labeled with the patient's name, date of , and L FA is an unoriented and cylindrical punch biopsy of white-garcia possible skin measuring 0.5 x 0.5 cm with a depth of 0.7 cm. The epidermis is diffusely papillary and friable with an ill-defined 0.2 x 0.1 cm red-brown discoloration at the periphery. The deep margin is inked green, and it is bisected to reveal white-garcia, indurated surfaces. The discoloration does not appear to extend to the deep margin. Submitted entirely in A1. [facility] 01-22-2025 CPT:71857 Electronically Signed by: Dr. Dr. Kamilah Arcos MD 02/04/25 8979 Vital Signs: Vital Signs Temp Pulse Resp BP O2 Del Method 96.7 F L 71 18 124/59 H Room Air 02/04/25 10:10 02/04/25 10:10 02/04/25 10:10 02/04/25 10:10 02/04/25 10:10 Oxygen Delivery Method Room Air Weight: 220 lb 0.271 oz Body Mass Index (BMI) 31.6 Charges/Coding Multi Select Codes Integumentary Integumentary CPT Codes: 96710 Skin sub graft face/nk/hf/g Physical Exam Narrative Sacral wound 2.5 x 2cm and1 cm deep. No exposed bone there is granulation over the bone. Tunnels superiorly about 1 cm. Periwound clean without any signs of induration. No fluid collections. Granulation tissue present. No signs of infection. Motor: 4 out of 5 hip flexion and extension bilaterally, 4 out of 5 knee flexion and extension bilaterally, 0 out of 5 foot plantarflexion and dorsiflexion. Sensation: No sensation to light touch on the feet. Consistent with peripheral neuropathy. Vascular: No palpable pulses but the feet are warm bilaterally. Lymph Lymphatic: no lymphadenopathy noted Lymphatic Narrative: No left axillary or left antecubital lymphadenopathy Cardio regular rate and regular rhythm Extremity Extremity Narrative: Left plantar wound, some granulating soft tissue over the calcaneus 4.5 x 5 cm and 0.1 deep No signs of infection today Left upper extremity 2 x 2 cm dorsal proximal ulnar forearm scaly lesion with surrounding induration at the base. Biopsy site healed well since biopsy, but still residual neoplasm. Debridement Note Debridement Note No debridement was completed: No debridement was completed today (See debridement for application of the TheraSkin as documented below but there was no wound debridement today other than this preparation) Post-Debridement Measurements and Additional Note: Post-Debridement Measurements/Treatment - Nurse 1 - General Ulcer Assessment Start: 01/21/25 10:16 Freq: Status: Active Protocol: [email or web address] Activity Type Activity Date Activity User E-sign Co-sign Detail Recorded Client Recorded Date Recorded By Document 01/21/25 10:19 MARK ANTHONY [id number] 01/21/25 10:25 MARK ANTHONY Document 02/04/25 10:10 KW [id number] 02/04/25 10:18 KW 01/21/25 02/04/25 10:19 10:10 - Today's Visit Information Type of service Follow-up Visit Follow-up Visit (Physician/ANESTHESIOLOGY TECHNOLOGIST (Physician/ANESTHESIOLOGY TECHNOLOGIST ) ) Arrival Mode Wheelchair Wheelchair Transfer Assistance Other Transfer Assist (Other) 2 stand by Accompanied by Patient Identification Verified (Name & Yes Yes ) Patient Requires Transmission-Based No Precautions Height and Weight Body Mass Index (BMI) 31.6 31.6 BMI Classification Obese Obese Vital Signs Temperature (97.8 F-99.1 F) 96.7 F L Temperature Source Temporal Pulse Rate (60-100) 72 71 Pulse Location Monitor Monitor Respiratory Rate (12-18) 16 18 Respiratory rate source Observation Observation Oxygen Delivery Method Room Air Room Air Blood Pressure (90/60-120/80) 126/63 H 124/59 H Blood Pressure Mean (mm Hg) 84 80 Source Monitor Monitor Position Sitting Sitting Blood Pressure Location Right Arm Right Arm History Since Last Visit- (Skip if this is Patient's initial visit) Have you changed medications since your Yes No last visit? Any new allergies or adverse reactions No No Had a fall/change in ADL's that may No No increase risk of falls Signs or symptoms of abuse and/or No No neglect since last visit Have you been in the hospital since your No No last visit? Has dressing in place as prescribed Yes Yes Has compression in place as prescribed N/A N/A Has offloadiing in place as prescribed N/A N/A Experienced any changes in pain level or No No management Left Footwear Diabetic Shoe Regular Shoe Right Footwear Diabetic Shoe Regular Shoe Pain Scale: 0-10 Numeric Is Patient Pain Free? Yes Yes WC - Nurse 1 - General Ulcer Measurement Start: 01/21/25 10:16 Freq: Status: Active Protocol: Activity Type Activity Date Activity User E-sign Co-sign Detail Recorded Client Recorded Date Recorded By Document 01/21/25 10:19 MARK ANTHONY [id number] 01/21/25 10:25 JF Document 02/04/25 10:10 KW [id number] 02/04/25 10:18 KW 01/21/25 02/04/25 10:19 10:10 Wound Center Nurse 1 5. left FA -Current Size (cm) - Length 0.1 -Current Size (cm) - Width 0.1 -Current Size (cm) - Depth 0 -Total Square Cm 0.01 -Date of Last Picture (Recall this 02/04/25 field) -Exudate Amt None Present -Texture (Andreea-wound Skin Appearance) Assessed -Moisture (Andreea-wound Skin Appearance) Assessed -Color (Andreea-wound Skin Appearance) Assessed -Temperature (Andreea-wound Skin No Abnormality Appearance) (Pt Warm) -Tenderness on Palpation (Andreea-wound No Skin Appearance) -Ulcer Cleansing Soap and Water -Foul Odor after Cleansing No #2 L Heel -Combined with other wound No -Current Size (cm) - Length 5 5 -Current Size (cm) - Width 4 3.7 -Current Size (cm) - Depth 0.1 0.1 -Total Square Cm 20 18.5 -Date of Last Picture (Recall this 01/21/25 02/04/25 field) -Photo Taken Yes -Tunneling No -Undermining/Tunneling No -Circular Undermining No -Exudate Amt Medium Large -Exudate Type Serosanguineous Serosanguineous -Wound Margin Distinct, Distinct, Outline Outline Attached Attached -Granulation Amt Medium (34-66%) Large (67-100%) -Granulation Quality Pale,Red Onset,Red -Slough/Fibrin Yes -Necrosis Amt Medium (34-66%) -Necrotic Tissue Type Adherent Slough -Texture (Andreea-wound Skin Appearance) Assessed Assessed -Moisture (Andreea-wound Skin Appearance) Assessed Maceration -Color (Andreea-wound Skin Appearance) Assessed, Assessed Erythema -Temperature (Andreea-wound Skin No Abnormality No Abnormality Appearance) (Pt Warm) (Pt Warm) -Tenderness on Palpation (Andreea-wound No No Skin Appearance) -Ulcer Cleansing Soap and Water Soap and Water -Foul Odor after Cleansing No -Anesthetic Used 5% Lidocaine 4% Lidocaine Gel Solution #1 Sacral Cluster -Combined with other wound No -Current Size (cm) - Length 2.5 2 -Current Size (cm) - Width 1 1.4 -Current Size (cm) - Depth 3 2.9 -Total Square Cm 2.5 2.8 -Date of Last Picture (Recall this 01/21/25 02/04/25 field) -Photo Taken Yes -Undermining/Tunneling Yes -Undermining/Tunneling Starts (O'clock 7 ) -Undermining/Tunneling Ends (O'clock) 12 -Maximum Distance (cm) 3.6 -Circular Undermining No -Exudate Amt Medium Medium -Exudate Type Serosanguineous Serosanguineous -Wound Margin Thickened Distinct, Outline Attached -Granulation Amt Large (67-100%) Large (67-100%) -Granulation Quality Red Red -Slough/Fibrin No -Necrosis Amt None Present (0 Small (1-33%) %) -Necrotic Tissue Type Adherent Slough -Texture (Andreea-wound Skin Appearance) Assessed, Assessed Scarring -Moisture (Andreea-wound Skin Appearance) Assessed, Maceration Maceration -Color (Andreea-wound Skin Appearance) Assessed Assessed -Temperature (Andreea-wound Skin No Abnormality Appearance) (Pt Warm) -Tenderness on Palpation (Andreea-wound Yes Skin Appearance) -Ulcer Cleansing Soap and Water Soap and Water -Foul Odor after Cleansing No -Anesthetic Used 4% Lidocaine 4% Lidocaine Solution Solution WC - Nurse 2 - General Ulcer CM Notes Start: 01/21/25 10:16 Freq: Status: Active Protocol: Activity Type Activity Date Activity User E-sign Co-sign Detail Recorded Client Recorded Date Recorded By Document 01/21/25 11:06 DS [id number] 01/21/25 11:10 DS Document 02/04/25 10:52 DS [id number] 02/04/25 11:00 DS 01/21/25 02/04/25 11:06 10:52 Wound Center Nurse 2 5. left FA -Time 11:00 10:53 -Correct Patient Yes -Correct Side, Site, Position Yes -Correct Procedure Yes -Procedure Performed Yes -Type of Procedure Biopsy -Wound/Ulcer Outcome Not Healed -I&D / Paring / Biopsy Punch bx skin ( includes simple close, if done ), single lesion #2 L Heel -Time 11:00 10:53 -Correct Patient Yes Yes -Correct Side, Site, Position Yes -Correct Procedure Yes -Procedure Performed No Yes -Type of Procedure Debridement -Clinical Debridement Subcutaneous -Tissue Removed Subcutaneous -Post Debridement (cm) - Length 5.0 -Post Debridement (cm) - Width 4.3 -Post Debridement (cm) - Depth 0.1 -Total Square (Post) (cm) 21.50 -Area of Debridement (cm) - Length 5.0 -Area of Debridement (cm) - Width 4.3 -Total Square (Area) (cm) 21.50 -Tunneling No -Undermining/Tunneling No -Circular Undermining No -Wound/Ulcer Outcome Not Healed Not Healed -Ulcer Cleansing Rinsed/ Irrigated with Saline -Foul Odor after Cleansing No -Bioengineered Tissue Yes -Type of Bioengineered Tissue Theraskin -Expiration Date 08/23/27 -Product Lot Number [id number] -Percent Used 100 -Lot number of Saline Used [id number] -Bleeding Controlled with Pressure -Treatment Response Procedure Tolerated Well -Debridement - Subq, 1st 20sq cm No -Apply Skin Sub - 1st 25 sq cm - Feet 1 -Dermabond 2 -Theraskin - 26TS (26 SQ CM) 26 Application 1-4 (per sq cm) #1 Sacral Cluster -Time 11:00 10:50 -Correct Patient Yes Yes -Correct Side, Site, Position Yes Yes -Correct Procedure Yes -Procedure Performed Yes No -Type of Procedure Debridement -Clinical Debridement Muscle / Fascia -Tissue Removed Muscle,Fascia -Post Debridement (cm) - Length 2.5 2.5 -Post Debridement (cm) - Width 2.0 2.0 -Post Debridement (cm) - Depth 3.0 3.0 -Total Square (Post) (cm) 5.00 5.00 -Area of Debridement (cm) - Length 2.5 2.5 -Area of Debridement (cm) - Width 2.0 3.0 -Total Square (Area) (cm) 5.00 7.50 -Tunneling No -Undermining/Tunneling No -Circular Undermining No -Wound/Ulcer Outcome Not Healed Not Healed -Ulcer Cleansing Rinsed/ Irrigated with Saline -Foul Odor after Cleansing No -Bioengineered Tissue No -Bleeding Controlled with Pressure,Silver Nitrate -Debridement - Muscle / Fascia, 1st Yes 20sq cm -Wound Comment(s) silver nitrate x3 Pain Scale: 0-10 Numeric Is Patient Pain Free? Yes Yes WC - Nurse 3 - General Ulcer D/C NN Start: 01/21/25 10:16 Freq: Status: Active Protocol: Activity Type Activity Date Activity User E-sign Co-sign Detail Recorded Client Recorded Date Recorded By Document 01/21/25 11:36 BMF [id number] 01/21/25 11:37 BMF Document 02/04/25 11:12 ML [id number] 02/04/25 11:14 ML 01/21/25 02/04/25 11:36 11:12 Wound Care Center Nurse 3 5. left FA -Other Dressing drsg per ss business office manager abd -Primary Dressing Covered/Secured with Dry Gauze, Dry Gauze & Secured with Roll Gauze, Tape Secured with Tape -Other Covering post biopsy #2 L Heel -Ulcer Cleansing Soap and Water -Foul Odor after Cleansing No -Primary Dressing Applied Aquacel AG 4x4 -Other Dressing fluffed gauze, nurses hat heel hat -Primary Dressing Covered/Secured with Dry Gauze & Dry Gauze & Roll Gauze, Roll Gauze, Secured with Secured with Tape Tape -Aquacel AG 4x4 1 #1 Sacral Cluster -Ulcer Cleansing Rinsed/ Irrigated with Saline -Foul Odor after Cleansing No -Negative Pressure Wound Therapy Continue -Pieces of Black Foam Inserted 1 -NPWT Application Charge NPWT & NPWT & Debridement (nc Debridement (nc ) ) -Negative Pressure is Continuous -Regranex (If Applicable) Continue -Other Dressing vac applied per mark anthony rn Treatment Response Procedure Tolerated Well Pain Scale: 0-10 Numeric Is Patient Pain Free? 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 He will need 6 mm margins. CPT codes for insurance prior authorization are as follows: 58896, 45412, 63120, 88136, 26729 (2) Pressure ulcer of left heel, stage 3: CODE(S): L89.623 - Pressure ulcer of left heel, stage 3 PLAN: Deferred debridement today I talked to the patient that the risks, benefits, and alternatives to reconstruction with dermal substitute and eventual skin grafting. He is not interested in skin grafting and would like to try a skin substitute such as there is skin first. We are going to try that in clinic and will submit for approval. Vascular surgery was consulted. Noncompressible arterial vessels at the ankles, but waveforms were reassuring. Given history of diabetes and arterial insufficiency, however, they have ordered a CTA with runoff to evaluate for focal stenosis. He will follow-up with vascular. Otherwise we will continue to treat with skin substitute (Theraskin) TheraSkin was placed today Procedure details: The wound was cleaned and debrided with a 7 mm curette removing biofilm and debris. A 26 cm? TheraSkin was applied and trimmed to fit. The wound measured 22-1/2 cm? or 4.5 x 5 cm. The TheraSkin was applied and Dermabond was used to keep it place on the skin edges. A wound veil was then applied with Steri-Strips and an ABD and tape Patient is will change the ABD and tape daily. Follow-up in 1 week for another treatment (3) Sacral decubitus ulcer, stage IV: CODE(S): L89.154 - Pressure ulcer of sacral region, stage 4 PLAN: Continue wound VAC dressing 3 times per week. Wound is getting smaller and granulating in. (4) Neoplasm of uncertain behavior of skin: CODE(S): D48.5 - Neoplasm of uncertain behavior of skin PLAN: Determined to be a squamous cell carcinoma (see above) PLAN: Plan Continue pressure offloading with low air loss mattress Continue PODUS boot for pressure offloading of the foot
--- NOTE | 2025-02-04 13:30 | WC ---
PHOTO 02/04/25 LFA
--- NOTE | 2025-02-04 13:31 | WC ---
PHOTO 02/04/25 LEFT HEEL
--- NOTE | 2025-02-04 13:31 | WC ---
PHOTO 02/04/25 SACRUM
[2025-02-11 09:25] VITALS: BP 123/64; PULSE 85; RESP 15; TEMP 35.7; BMI 31.6
--- NOTE | 2025-02-12 21:16 | PN.PCM_ITS ---
History of Present Illness Date of Service: 02/11/25 Chief Complaint: Follow-up on buttocks right and left heel wounds that have been going on for months. History of Wound: Chief Complaint: Follow-up on buttocks right and left heel wounds that have been going on for months. 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 He has not walked in several years. He is able to stand up to perform transfers, but does not move his ankle joints. He lays on his chair most of the day. And has developed a sacral wound that he has been following at the wound care center for as well as a left calcaneal wound in the setting of a recent hospitalization this past year, both of which he has been following here at the wound center with various advanced practice providers. Wound culture of left heel ulcer from 08/08/24 positive for MDRO Pseudomonas aeruginosa. Referral to infectious disease for treatment s/p antibiotic regimen. MRI of Pelvis 08/16/24 - Sacral decubitus ulcer with sacrococcygeal osteomyelitis. Treated by infectious disease with long-term course of IV antibiotics. Progress of Wound: The sacral ulcer with bone palpable but covered with granulation tissue and is beefy pink. There is undermining present, which is stable. The perineal ulcer (skin tear proximal to sacral ulcer) remains healed. Left medial heel appears improved with pink ulcer bed and much less non viable tissue present. He is sleeping on the low air loss mattress. 10 December 2024: Patient reports that he has not had any vascular workup for the lower extremity. He has a history of a DVT in the left lower extremity in the remote history and remains on Eliquis for anticoagulation. He reports episodic swelling in the left lower extremity that appears to be worsening the condition of the wound. He is not having any shortness of breath. He is not having any systemic signs or symptoms of infection. 17 December 2024: Doing well with wound care (VAC dressings) which started this past Tuesday. They have an appointment for ABIs and US for evaluation of the lower extremity. He has not gotten his xray of the foot yet, but is planning to get that soon (discussed). Labs obtained 14 Dec 2024 A1C 6.7 Prealb 27 Alb 3.4 Subjective Subjective 07 January 2025: Imaging reviewed. No osteomyelitis on the xray of the foot. There were no DVT on venous study. Arterial study demonstrated noncompressible vessels 2/2 to significant calcific ations of the vasculature Patient has been doing well overall, however. Tolerating dressing changes. 21 January 2025: Doing well overall with dressing changes except there is been an odor coming from the sacral wound after the VAC changes, his would like us to look today. Patient has seen Dr. Farooq (heart doctor) this past week on 19 January 2025 and he discontinued his amiodarone and his blood thinner (patient has been regular with rate and rhythm). He has been off the blood thinner for greater than 48 hours now. Patient also has a follow-up of his ABIs with vascular surgery on 23 January 2025 (2 days from now) To assess need for intervention for increased blood flow to the foot wound. There is another area of concern in the left forearm today that the patient and his would like me to biopsy. It has been there for several months and growing. It is a scaly/scabby lesion on the left proximal dorsal forearm. Biopsy results (from biopsy on 07 January 2025) of the heel wound did not demonstrate any signs of malignancy. 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 This was discussed with the patient and his . Patient doing well overall and is tolerating the TheraSkin applications to the heel. Wound VAC dressing changes are going well as well Objective Data Objective Data Vital Signs: Vital Signs Temp Pulse Resp BP O2 Del Method 96.2 F L 85 15 123/64 H Room Air 02/11/25 09:25 02/11/25 09:25 02/11/25 09:25 02/11/25 09:02/04/25 10:10 Oxygen Delivery Method Room Air Weight: 220 lb 0.271 oz Body Mass Index (BMI) 31.6 Charges/Coding Procedures Integumentary 111xxx-113xx: 93462 Ginette musc/fascia 20 sq cm/< 150xxx-152xx: 17165 Skin sub graft face/nk/hf/g Physical Exam Narrative Sacral wound 3.5 x 3.5 cm and1 cm deep. No exposed bone there is granulation over the bone. Tunnels superiorly about 1 cm. Periwound clean without any signs of induration. No fluid collections. Granulation tissue present. No signs of infection. Motor: 4 out of 5 hip flexion and extension bilaterally, 4 out of 5 knee flexion and extension bilaterally, 0 out of 5 foot plantarflexion and dorsiflexion. Sensation: No sensation to light touch on the feet. Consistent with peripheral neuropathy. Vascular: No palpable pulses but the feet are warm bilaterally. Lymph Lymphatic: no lymphadenopathy noted Lymphatic Narrative: No left axillary or left antecubital lymphadenopathy Cardio regular rate and regular rhythm Extremity Extremity Narrative: Left plantar wound, some granulating soft tissue over the calcaneus 4.5 x 3.5 cm and 0.1 deep No signs of infection today Left upper extremity 2 x 2 cm dorsal proximal ulnar forearm squamous cell carcinoma with surrounding induration at the base. Biopsy site healed well since biopsy, but still residual neoplasm. Debridement Note Debridement Note Wound debrided: Sacral wound Laterality: Not Applicable Wound Grade/Stage: Stage III Type of Debridement: Excisional debridement Anesthesia Used: 4% Lidocaine Solution Depth: to muscle Percentage of wound debrided: 100 Instrument Used: 7mm curette, Forceps (And scissors) and - Tissue Removed: Necrotic fascia and fibrinous exudate at the muscle/fascia level Severity: Necrosis of Muscle Amount of bleeding with debridement: Moderate Bleeding Controlled with: Compression and gauze and - (10 cc of 1% lidocaine with 1-200,000 epinephrine) Patient tolerated procedure: Patient tolerated procedure well Post-Debridement Measurements and Additional Note: Post-Debridement Measurements/Treatment - Nurse 1 - General Ulcer Assessment Start: 01/21/25 10:16 Freq: Status: Active Protocol: CHEL Activity Type Activity Date Activity User E-sign Co-sign Detail Recorded Client Recorded Date Recorded By Document 01/21/25 10:19 MARK ANTHONY [id number] 01/21/25 10:25 JF Document 02/04/25 10:10 KW [id number] 02/04/25 10:18 KW Document 02/11/25 09:25 BM [id number] 02/11/25 09:32 BMF 01/21/25 02/04/25 02/11/25 10:19 10:10 09:25 - Today's Visit Information Type of service Follow-up Visit Follow-up Visit Follow-up Visit (Physician/DETECTIVE BUREAU CHIEF (Physician/DETECTIVE BUREAU CHIEF (Physician/DETECTIVE BUREAU CHIEF ) ) ) Arrival Mode Wheelchair Wheelchair Wheelchair Transfer Assistance Other Manual Transfer Assist (Other) 2 stand by Accompanied by Patient Identification Verified (Name & Yes Yes Yes ) Patient Requires Transmission-Based No No Precautions Height and Weight Body Mass Index (BMI) 31.6 31.6 31.6 BMI Classification Obese Obese Obese Vital Signs Temperature (97.8 F-99.1 F) 96.7 F L 96.2 F L Temperature Source Temporal Temporal Pulse Rate (60-100) 72 71 85 Pulse Location Monitor Monitor Monitor Respiratory Rate (12-18) 16 18 15 Respiratory rate source Observation Observation Observation Oxygen Delivery Method Room Air Room Air Blood Pressure (90/60-120/80) 126/63 H 124/59 H 123/64 H Blood Pressure Mean (mm Hg) 84 80 83 Source Monitor Monitor Monitor Position Sitting Sitting Sitting Blood Pressure Location Right Arm Right Arm Right Arm History Since Last Visit- (Skip if this is Patient's initial visit) Have you changed medications since your Yes No No last visit? Any new allergies or adverse reactions No No No Had a fall/change in ADL's that may No No No increase risk of falls Signs or symptoms of abuse and/or No No No neglect since last visit Have you been in the hospital since your No No No last visit? Has dressing in place as prescribed Yes Yes Yes Has compression in place as prescribed N/A N/A Yes Has offloadiing in place as prescribed N/A N/A Yes Experienced any changes in pain level or No No No management Left Footwear Diabetic Shoe Regular Shoe Right Footwear Diabetic Shoe Regular Shoe Pain Scale: 0-10 Numeric Is Patient Pain Free? Yes Yes Yes WC - Nurse 1 - General Ulcer Measurement Start: 01/21/25 10:16 Freq: Status: Active Protocol: Activity Type Activity Date Activity User E-sign Co-sign Detail Recorded Client Recorded Date Recorded By Document 01/21/25 10:19 JF [id number] 01/21/25 10:25 JF Document 02/04/25 10:10 KW [id number] 02/04/25 10:18 KW Document 02/11/25 09:25 BM [id number] 02/11/25 09:32 BMF 01/21/25 02/04/25 02/11/25 10:19 10:10 09:25 Wound Center Nurse 1 5. left FA -Current Size (cm) - Length 0.1 0.1 -Current Size (cm) - Width 0.1 0.1 -Current Size (cm) - Depth 0 0.1 -Total Square Cm 0.01 0.01 -Date of Last Picture (Recall this 02/04/25 field) -Exudate Amt None Present Small -Exudate Type Serous -Granulation Amt Small (1-33%) -Slough/Fibrin Yes -Necrosis Amt Small (1-33%) -Texture (Andreea-wound Skin Appearance) Assessed Assessed -Moisture (Andreea-wound Skin Appearance) Assessed -Color (Andreea-wound Skin Appearance) Assessed Assessed -Temperature (Andreea-wound Skin No Abnormality No Abnormality Appearance) (Pt Warm) (Pt Warm) -Tenderness on Palpation (Andreea-wound No No Skin Appearance) -Ulcer Cleansing Soap and Water Rinsed/ Irrigated with Saline -Foul Odor after Cleansing No No -Anesthetic Used 5% Lidocaine Gel #2 L Heel -Combined with other wound No -Current Size (cm) - Length 5 5 4.8 -Current Size (cm) - Width 4 3.7 2.7 -Current Size (cm) - Depth 0.1 0.1 0.1 -Total Square Cm 20 18.5 12.96 -Date of Last Picture (Recall this 01/21/25 02/04/25 field) -Photo Taken Yes -Tunneling No -Undermining/Tunneling No -Circular Undermining No -Exudate Amt Medium Large Medium -Exudate Type Serosanguineous Serosanguineous Serosanguineous -Wound Margin Distinct, Distinct, Distinct, Outline Outline Outline Attached Attached Attached -Granulation Amt Medium (34-66%) Large (67-100%) Medium (34-66%) -Granulation Quality Pale,Red [place],Red -Slough/Fibrin Yes -Necrosis Amt Medium (34-66%) Medium (34-66%) -Necrotic Tissue Type Adherent Slough Adherent Slough -Texture (Andreea-wound Skin Appearance) Assessed Assessed Assessed -Moisture (Andreea-wound Skin Appearance) Assessed Maceration Assessed -Color (Andreea-wound Skin Appearance) Assessed, Assessed Assessed Erythema -Temperature (Andreea-wound Skin No Abnormality No Abnormality No Abnormality Appearance) (Pt Warm) (Pt Warm) (Pt Warm) -Tenderness on Palpation (Andreea-wound No No No Skin Appearance) -Ulcer Cleansing Soap and Water Soap and Water Soap and Water -Foul Odor after Cleansing No No -Anesthetic Used 5% Lidocaine 4% Lidocaine 5% Lidocaine Gel Solution Gel #1 Sacral Cluster -Combined with other wound No -Current Size (cm) - Length 2.5 2 2.3 -Current Size (cm) - Width 1 1.4 0.6 -Current Size (cm) - Depth 3 2.9 1.4 -Total Square Cm 2.5 2.8 1.38 -Date of Last Picture (Recall this 01/21/25 02/04/25 field) -Photo Taken Yes -Tunneling Yes -Tunneling Position (O'clock) 11 -Tunneling Distance (cm) 3.8 -Undermining/Tunneling Yes Yes -Undermining/Tunneling Starts (O'clock 7 7 ) -Undermining/Tunneling Ends (O'clock) 12 3 -Maximum Distance (cm) 3.6 3.8 -Circular Undermining No -Exudate Amt Medium Medium Medium -Exudate Type Serosanguineous Serosanguineous Serosanguineous -Wound Margin Thickened Distinct, Distinct, Outline Outline Attached Attached -Granulation Amt Large (67-100%) Large (67-100%) Medium (34-66%) -Granulation Quality Red Red -Slough/Fibrin No -Necrosis Amt None Present (0 Small (1-33%) Medium (34-66%) %) -Necrotic Tissue Type Adherent Slough Adherent Slough -Texture (Andreea-wound Skin Appearance) Assessed, Assessed Assessed Scarring -Moisture (Andreea-wound Skin Appearance) Assessed, Maceration Assessed Maceration -Color (Andreea-wound Skin Appearance) Assessed Assessed Assessed -Temperature (Andreea-wound Skin No Abnormality No Abnormality Appearance) (Pt Warm) (Pt Warm) -Tenderness on Palpation (Andreea-wound Yes No Skin Appearance) -Ulcer Cleansing Soap and Water Soap and Water Soap and Water -Foul Odor after Cleansing No No -Anesthetic Used 4% Lidocaine 4% Lidocaine 5% Lidocaine Solution Solution Gel WC - Nurse 2 - General Ulcer CM Notes Start: 01/21/25 10:16 Freq: Status: Active Protocol: Activity Type Activity Date Activity User E-sign Co-sign Detail Recorded Client Recorded Date Recorded By Document 01/21/25 11:06 DWIGHT [id number] 01/21/25 11:10 DS Document 02/04/25 10:52 DS [id number] 02/04/25 11:00 DS Document 02/11/25 10:12 DS [id number] 02/11/25 10:21 DS 01/21/25 02/04/25 02/11/25 11:06 10:52 10:12 Wound Center Nurse 2 5. left FA -Time 11:00 10:53 10:12 -Correct Patient Yes Yes -Correct Side, Site, Position Yes Yes -Correct Procedure Yes -Procedure Performed Yes No -Type of Procedure Biopsy Debridement -Wound/Ulcer Outcome Not Healed Not Healed -I&D / Paring / Biopsy Punch bx skin ( includes simple close, if done ), single lesion #2 L Heel -Time 11:00 10:53 10:13 -Correct Patient Yes Yes Yes -Correct Side, Site, Position Yes Yes -Correct Procedure Yes Yes -Procedure Performed No Yes Yes -Type of Procedure Debridement Debridement -Clinical Debridement Subcutaneous Subcutaneous -Tissue Removed Subcutaneous Subcutaneous -Post Debridement (cm) - Length 5.0 4.0 -Post Debridement (cm) - Width 4.3 3.5 -Post Debridement (cm) - Depth 0.1 0.1 -Total Square (Post) (cm) 21.50 14.00 -Area of Debridement (cm) - Length 5.0 4.0 -Area of Debridement (cm) - Width 4.3 3.5 -Total Square (Area) (cm) 21.50 14.00 -Tunneling No No -Undermining/Tunneling No -Circular Undermining No No -Wound/Ulcer Outcome Not Healed Not Healed Not Healed -Ulcer Cleansing Rinsed/ Rinsed/ Irrigated with Irrigated with Saline Saline -Foul Odor after Cleansing No No -Bioengineered Tissue Yes Yes -Type of Bioengineered Tissue Theraskin Theraskin -Expiration Date 08/23/27 03/02/29 -Product Lot Number [id number] -Percent Used 100 100 -Lot number of Saline Used [id number] -Bleeding Controlled with Pressure Pressure -Treatment Response Procedure Procedure Tolerated Well Tolerated Well -Debridement - Subq, 1st 20sq cm No No -Apply Skin Sub - 1st 25 sq cm - Feet 1 1 -Dermabond 2 3 -Theraskin - 26TS (26 SQ CM) 26 26 Application 1-4 (per sq cm) #1 Sacral Cluster -Time 11:00 10:50 10:15 -Correct Patient Yes Yes Yes -Correct Side, Site, Position Yes Yes Yes -Correct Procedure Yes Yes -Procedure Performed Yes No Yes -Type of Procedure Debridement Debridement -Clinical Debridement Muscle / Fascia Muscle / Fascia -Tissue Removed Muscle,Fascia Subcutaneous -Post Debridement (cm) - Length 2.5 2.5 3.5 -Post Debridement (cm) - Width 2.0 2.0 3.5 -Post Debridement (cm) - Depth 3.0 3.0 1.0 -Total Square (Post) (cm) 5.00 5.00 12.25 -Area of Debridement (cm) - Length 2.5 2.5 3.5 -Area of Debridement (cm) - Width 2.0 3.0 3.5 -Total Square (Area) (cm) 5.00 7.50 12.25 -Tunneling No Yes -Tunneling Distance (cm) 1.0 -Undermining/Tunneling No No -Circular Undermining No No -Wound/Ulcer Outcome Not Healed Not Healed Not Healed -Ulcer Cleansing Rinsed/ Rinsed/ Irrigated with Irrigated with Saline Saline -Foul Odor after Cleansing No No -Bioengineered Tissue No No -Injectable Lidocaine w/ Epi (%) 1 -Injectable Lidocaine w/ Epi (mls) 10 -Bleeding Controlled with Pressure,Silver Pressure Nitrate -Treatment Response Procedure Tolerated Well -Debridement - Muscle / Fascia, 1st Yes Yes 20sq cm -Wound Comment(s) silver nitrate x3 Pain Scale: 0-10 Numeric Is Patient Pain Free? Yes Yes Yes WC - Nurse 3 - General Ulcer D/C NN Start: 01/21/25 10:16 Freq: Status: Active Protocol: Activity Type Activity Date Activity User E-sign Co-sign Detail Recorded Client Recorded Date Recorded By Document 01/21/25 11:36 BM [id number] 01/21/25 11:37 BMF Document 02/04/25 11:12 ML [id number] 02/04/25 11:14 ML Document 02/11/25 11:10 [facility] [id number] 02/11/25 11:12 BM 01/21/25 02/04/25 02/11/25 11:36 11:12 11:10 Wound Care Center Nurse 3 5. left FA -Primary Dressing Applied Silicone Border Foam 4x4 -Other Dressing drsg per ss paid intern abd -Primary Dressing Covered/Secured with Dry Gauze, Dry Gauze & Secured with Roll Gauze, Tape Secured with Tape -Other Covering post biopsy -Silicone Border Foam 4x4 1 #2 L Heel -Ulcer Cleansing Soap and Water -Foul Odor after Cleansing No -Primary Dressing Applied Aquacel AG 4x4 -Other Dressing fluffed gauze, nurses hat theraskin/ heel heel hat hat -Primary Dressing Covered/Secured with Dry Gauze & Dry Gauze & Dry Gauze & Roll Gauze, Roll Gauze, Roll Gauze, Secured with Secured with Secured with Tape Tape Tape -Aquacel AG 4x4 1 #1 Sacral Cluster -Ulcer Cleansing Rinsed/ Soap and Water Irrigated with Saline -Foul Odor after Cleansing No No -Negative Pressure Wound Therapy Continue Continue -Pieces of Black Foam Inserted 1 1 -NPWT Application Charge NPWT & NPWT & NPWT & Debridement (nc Debridement (nc Debridement (nc ) ) ) -Setting (mmHg) 125 -Negative Pressure is Continuous Continuous -Regranex (If Applicable) Continue -Other Dressing vac applied per jf rn LLE -Other reapplied pts own single layer size E Treatment Response Procedure Procedure Tolerated Well Tolerated Well Pain Scale: 0-10 Numeric Is Patient Pain Free? 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 He will need 6 mm margins. This was all discussed with the patient and his . We discussed the risk benefits and alternatives of surgery. They understand the risk of wound healing complications and infection, as well as recurrence of the cancer. CPT codes for insurance prior authorization are as follows: 18160, 09184, [id number], [id number], [id number] (2) Pressure ulcer of left heel, stage 3: CODE(S): L89.623 - Pressure ulcer of left heel, stage 3 PLAN: I talked to the patient that the risks, benefits, and alternatives to reconstruction with dermal substitute and eventual skin grafting. He is not interested in skin grafting and would like to try a skin substitute such as there is skin first. We are going to try that in clinic and will submit for approval. Vascular surgery was consulted. Noncompressible arterial vessels at the ankles, but waveforms were reassuring. Given history of diabetes and arterial insufficiency, however, they have ordered a CTA with runoff to evaluate for focal stenosis. He will follow-up with vascular. Otherwise we will continue to treat with skin substitute (Theraskin) TheraSkin was placed today Procedure details: The wound was cleaned and debrided with a 7 mm curette removing biofilm and debris. A 26 cm? TheraSkin was applied and trimmed to fit. The wound measured 4 x 3.5 cm. The TheraSkin was applied and Dermabond was used to keep it place on the skin edges. A wound veil was then applied with Steri-Strips and an ABD and tape Patient is will change the ABD and tape daily. Follow-up in 1 week for another treatment (3) Sacral decubitus ulcer, stage IV: CODE(S): L89.154 - Pressure ulcer of sacral region, stage 4 PLAN: Continue wound VAC dressing 3 times per week. Wound is getting smaller and granulating in. (4) Neoplasm of uncertain behavior of skin: CODE(S): D48.5 - Neoplasm of uncertain behavior of skin PLAN: Determined to be a squamous cell carcinoma (see above) PLAN: Plan Continue pressure offloading with low air loss mattress Continue PODUS boot for pressure offloading of the foot
== END 2025-02-13 23:59 | disposition home or self-care (01) ==
LOC: WC 09:30
PROVIDERS: PCP Family Medicine; Referring Provider Family Medicine; Visit Provider Surgery Plastic and Reconstructive Surgery
DX: E11.621 Type 2 diabetes mellitus with foot ulcer (principal); L89.153 Pressure ulcer of sacral region, stage 3; L89.623 Pressure ulcer of left heel, stage 3; C91.10 Chronic lymphocytic leukemia of B-cell type not having achieved remission; E11.51 Type 2 diabetes mellitus with diabetic peripheral angiopathy without gangrene; Z86.718 Personal history of other venous thrombosis and embolism; Z86.19 Personal history of other infectious and parasitic diseases; M48.061 Spinal stenosis, lumbar region without neurogenic claudication; C44.629 Squamous cell carcinoma of skin of left upper limb, including shoulder
CPT/HCPCS: 11043; 11104; 15275; 88305; Q4121

== ENCOUNTER 2025-02-27 09:45 | Day surgery (SDC) | payer MEDICARE, SELFPAY ==
--- NOTE | 2025-02-13 12:51 | PAT.ANE_ITS ---
Pre-Assessment Diagnosis/Proposed Procedure Planned Operative Procedure(s): EXCISION LEFT CASTAÑEDA SQUAMOUS CELL CARCINOMA POSS SKIN GRAFT Anesthesia History Anesthesia History - software test specialist: Anesthesia History - software test specialist Hx Hospitalization Yes: 03/2024 UTI SEPSIS 02/13/25 11:11 Any Problems With Anesthesia No 02/13/25 11:11 Cholinesterase deficiency No 02/13/25 11:11 You/Your Family Experience No 02/13/25 11:11 fever (hyperthermia) with Relationship Recent Exposure to Contagious No 09/26/13 09:47 Disease Does patient have nerve No 02/13/25 11:11 stimulator Patient instructed to have device shut off --Does patient have Pacemaker or ICD? When Was Last Pacemaker Check QUESTION #4 FULL TEXT: You/Your Family Experience fever (hyperthermia) with Anesthesia Last Oral Intake Last Oral intake: Last Oral Intake NPO since Meds taken in AM with sips of water? Meds patient instructed to take am of surgery PONV PONV - software test specialist: PONV - software test specialist Female No 02/13/25 11:11 HX of Motion Sickness Yes 02/13/25 11:11 HX of N/V After Surgery No 02/13/25 11:11 Non-Smoker Yes 02/13/25 11:11 Duration of Surgery greater Yes 02/13/25 11:11 than 60 minutes Number of Risk Factors 3 02/13/25 11:11 PONV Score Moderate Risk 02/13/25 11:11 Height & Weight Height & Weight: Anesthesia: Height & Weight Height 5 ft 10 in 01/18/25 11:07 Respiratory Assessment Respiratory Assessment - software test specialist: Respiratory Tract Infection Hx - software test specialist Hx Respiratory Tract Infection No 02/13/25 11:11 STOP Sleep Apnea STOP Sleep Apnea - software test specialist: STOP Sleep Apnea - software test specialist Hx Hypertension Yes: CONTROLLED WITH MED 02/13/25 11:11 Hx Sleep Apnea No 02/13/25 11:11 CPAP No 09/26/13 11:50 BIPAP No 09/26/13 10:19 Do you snore loudly (louder No 02/13/25 11:11 than talking or can be heard Do you often feel tired/ No 02/13/25 11:11 fatigued/ sleepy during daytime? Has anyone observed you stop No 02/13/25 11:11 breathing during sleep? STOP Results Negative 02/13/25 11:11 QUESTION #5 FULL TEXT : Do you snore loudly (louder than talking or can be heard through closed doors)? Tobacco Use History Tobacco Use History - software test specialist: Tobacco Use History - software test specialist Tobacco Use Smoking Status Never smoker 02/13/25 11:11 Hx Tobacco Use No 02/13/25 11:11 Years Smoking Packs Smoked per Day Smoking Cessation Date was within the last 15 years Hx Smoking Cessation Date Hx Smoking Cessation Counseling Hematologic Medial History Hematologic Hx - software test specialist: Hematologic Medical Hx - complaint manager Hx of Blood Transfusion Yes 02/13/25 11:11 Hx of Transfusion in last 3 No 02/13/25 11:11 Months Date of Last Transfusion (if within last 3 months) Ever experience any problems No 02/13/25 11:11 with transfusion(s)? Specify any problems Hx of Preganancy in last 3 N/A 02/13/25 11:11 Months Nurse Filling Out Transfusion DSCHRIBER 02/13/25 11:11 & Questions: Date: 02/13/25 02/13/25 11:11 Time: 11:13 02/13/25 11:11 Patient unable to answer at this time (ie. confused, unrespo /Reproduction History /Reproductive History - software test specialist: /Reproductive Hx- software test specialist Hx Now No 02/13/25 11:11 Gestational Age (in weeks): EDC: Hx Hx Para Hx Section SAB No 02/13/25 11:11 [facility] History (Updated 02/13/25 @ 11:29 by Denise Villareal) Gastric reflux Neuropathy Loss of hearing Wears dentures Cancer Depression Anxiety Diabetes Uses wheelchair Arthritis Prostate disease DVT (deep venous thrombosis) Easy bruising Back pain Non-smoker History of stress test History of echocardiogram Cardiology follow-up encounter History of heart attack 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 ulcer PAF (paroxysmal atrial fibrillation) Left ventricular hypertrophy Essential (primary) hypertension Osteoarthritis Gout 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 Hyperlipidemia 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 HLD (hyperlipidemia) Home Medications ?Medication ?Instructions ?Recorded ?Last Taken ?Type aspirin 81 mg chewable tablet 81 mg PO DAILY@0800 02/26 Unknown History lorazepam 1 mg tablet 1 mg PO QHS 09/20/13 Unknown History multivitamin with folic acid 400 1 tab PO DAILY Unknown History mcg tablet tramadol 50 mg tablet 50 mg PO Q4H PRN PRN Pain Unknown History famotidine 20 mg tablet (Acid 20 mg PO DAILY 12/01/18 Unknown History [employer]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)) ibrutinib 420 mg tablet (Imbruvica) 420 mg PO DAILY Unknown History loratadine 10 mg capsule 10 mg PO DAILY 12/01/18 Unkn own History cholecalciferol (vitamin D3) 25 25 mcg PO DAILY Unknown History mcg (1,000 unit) tablet metformin 500 mg tablet,extended 1,000 mg PO 1200 12/15 04/06 Unknown History release 24 hr tamsulosin 0.4 mg capsule (Flomax) 0.4 mg PO QHS 01/10 Unknown History duloxetine 30 mg capsule,delayed 30 mg PO QDAY 5 Unknown History release finasteride 5 mg tablet 5 mg PO QDAY 01/18/25 Unknow n History gabapentin 600 mg tablet 600 mg PO BID 01/18/25 Unkno wn History lactobacillus combination no.9 4 4,000 mmu cells PO QD AY 01/18/25 Unknown History billion cell capsule (Adult 50 Plus Probiotic) nitroglycerin 0.4 mg sublingual 0.4 mg sublingual Q5M PRN chest 01/18/25 Unknown Rx tablet pain #25 tabs pyridoxine (vitamin B6) 100 mg 200 mg PO DAILY 5 Unknown History tablet simvastatin 20 mg tablet 20 mg PO DAILY #90 tabs 02/08 Unknown Rx metoprolol succinate 25 mg 25 mg PO QHS 02/13/25 Unkno wn History tablet,extended release 24 hr Allergy/AdvReac Type Severity Reaction Status Date / Time niacin (From Niaspan Allergy Severe Unknown Verified 02/13/25 11:06 Extended-Release) Sulfa (Sulfonamide AdvReac Swelling Verified 02/13/25 11:06 Antibiotics) Family History Father Cancer lymphoma Myocardial infarction CAD (coronary artery disease) Mother CVA (cerebral vascular accident) Cancer HLD (hyperlipidemia) Hypertension Brother Myocardial infarction CAD (coronary artery disease) Sister Breast cancer Surgical History (Updated 02/13/25 @ 11:25 by Denise Villareal) History of cardiac catheterization Hx of right cataract extraction Hx of colonoscopy H/O arthroscopic knee surgery History of lithotripsy History of repair of rotator cuff History of coronary artery stent placement (05/13/10) Social History Smoking Status: Never smoker alcohol intake: former substance use type: does not use caffeine: No what type of physical activity do you participate in: none seatbelt use: always do you feel safe at home: Yes Audit: Pertinent Findings Pertinent Findings EKG Perinent findings: 01/18/2025. Sinus rhythm. Consider old anterior infarct. Echo (EF%) pertinent findings: 03/30/2024. EF 60%. Consult pertinent findings: Cardiology 01/18/2025. Coronary artery disease. Stable at this time no angina. Hypertension. Chronic. Stable. Paroxysmal A- fib. Currently sinus rhythm. Probably secondary to sepsis at the time. Recommendation Anesthesia Recommendation Anesthesia recommendation: OPTIMIZED for anesthesia
[2025-02-27] VITALS (8 sets, daily range): BP systolic 112–149; BP diastolic 50–66; PULSE 66–73; RESP 16–18; TEMP 36.6–36.9; O2SAT 95–100; BMI 27.6
[2025-02-27] MEDS: Lactated Ringers 1,000 ML 15 ML IV (10:00)
--- NOTE | 2025-02-27 10:22 | PCM.HP.STD ---
HPI - General HPI Narrative BRANDY LOMELI, is a 84 M who presents with left forearm squamous cell carcinoma skin cancer. Presents today for excision. Current Encounter (DATE OF SURGERY H&P UPDATE): I saw and examined the patient this morning in pre-operative holding. We discussed risks and benefits of today's surgery and they would like to proceed. NO CHANGE in health history since last seen and evaluated. Ready to proceed with surgery. FOR[facility]LY [facility] Medical History (Updated 02/13/25 @ 11:29 by Denise Villareal) Gastric reflux Neuropathy Loss of hearing Wears dentures Cancer Depression Anxiety Diabetes Uses wheelchair Arthritis Prostate disease DVT (deep venous thrombosis) Easy bruising Back pain Non-smoker History of stress test History of echocardiogram Cardiology follow-up encounter History of heart attack 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 ulcer PAF (paroxysmal atrial fibrillation) Left ventricular hypertrophy Essential (primary) hypertension Osteoarthritis Gout 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 Hyperlipidemia 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 HLD (hyperlipidemia) Home Medications ?Medication ?Instructions ?Recorded ?Last Taken ?Type aspirin 81 mg chewable tablet 81 mg PO DAILY@0800 09/20/13 Unknown History lorazepam 1 mg tablet 1 mg PO QHS 09/20/13 Unknown History multivitamin with folic acid 400 1 tab PO DAILY 09/20/13 Unknown History mcg tablet tramadol 50 mg tablet 50 mg PO Q4H PRN PRN Pain 09/20/13 Unknown History famotidine 20 mg tablet (Acid 20 mg PO DAILY 12/01/18 Unknown History Breaker Layer (famotidine)) ibrutinib 420 mg tablet (Imbruvica) 420 mg PO DAILY 12/01/18 Unknown History loratadine 10 mg capsule 10 mg PO DAILY 12/01/18 Unknown History cholecalciferol (vitamin D3) 25 25 mcg PO DAILY 12/30/20 Unknown History mcg (1,000 unit) tablet metformin 500 mg tablet,extended 1,000 mg PO 1200 12/30/20 Unknown History release 24 hr tamsulosin 0.4 mg capsule (Flomax) 0.4 mg PO QHS 01/11/24 Unknown History duloxetine 30 mg capsule,delayed 30 mg PO QDAY 01/18/25 Unknown History release finasteride 5 mg tablet 5 mg PO QDAY 01/18/25 Unknown History gabapentin 600 mg tablet 600 mg PO BID 01/18/25 Unknown History lactobacillus combination no.9 4 4,000 mmu cells PO QDAY 01/18/25 Unknown History billion cell capsule (Adult 50 Plus Probiotic) nitroglycerin 0.4 mg sublingual 0.4 mg sublingual Q5M PRN chest 01/18/25 Unknown Rx tablet pain #25 tabs pyridoxine (vitamin B6) 100 mg 200 mg PO DAILY 01/18/25 Unknown History tablet simvastatin 20 mg tablet 20 mg PO DAILY #90 tabs 01/18/25 Unknown Rx metoprolol succinate 25 mg 25 mg PO QHS 02/13/25 Unknown History tablet,extended release 24 hr Allergy/AdvReac Type Severity Reaction Status Date / Time niacin (From Niaspan Allergy Severe Unknown Verified 02/13/25 11:06 Extended-Release) Sulfa (Sulfonamide AdvReac Swelling Verified 02/13/25 11:06 Antibiotics) Family History Father Cancer lymphoma Myocardial infarction CAD (coronary artery disease) Mother CVA (cerebral vascular accident) Cancer HLD (hyperlipidemia) Hypertension Brother Myocardial infarction CAD (coronary artery disease) Sister Breast cancer Surgical History (Updated 02/13/25 @ 11:25 by Denise Villareal) History of cardiac catheterization Hx of right cataract extraction Hx of colonoscopy H/O arthroscopic knee surgery History of lithotripsy History of repair of rotator cuff History of coronary artery stent placement (05/13/10) Social History Smoking Status: Never smoker alcohol intake: former substance use type: does not use caffeine: No what type of physical activity do you participate in: none seatbelt use: always do you feel safe at home: Yes Physical Exam Lymph Lymphatic: no lymphadenopathy noted Lymphatic Narrative: No left axillary or left antecubital lymphadenopathy Cardio regular rate and regular rhythm Extremity Extremity Narrative: Left upper extremity 2 x 2 cm dorsal proximal ulnar forearm squamous cell carcinoma with surrounding induration at the base. Biopsy site healed well since biopsy, but still residual neoplasm. 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 The benefits and alternatives of this surgery were also discussed. All of their questions were answered, and they agreed to proceed with surgery. Plan for excision with 6 mm margins and primary closur v dermal substitute INTERVAL H&P PLAN, DATE OF SURGERY: We will proceed with surgery today.
--- NOTE | 2025-02-27 10:40 | PRE.ANES_ITS ---
ASA Classification* ASA Classification ASA Classification: 3 Assessment & Plan Anesthesia* Anesthesia Assessment Anesthesia Assessment: Discussed sedation and/or anesthesia options, risks, benefits, and alternatives with patient/parents/legal guardian/POA. Questions invited. The patient/parents/legal guardian/POA seems to understand and agrees to proceed with anesthesia plan. Reviewed the physical assessment, medical history, allergy history and patient home medications list prior to surgery/procedure/anesthetic and documented any changes. Performed airway and anesthesia risk assessments. Anesthesia Type Anesthesia Type: MAC History Source History Obtained from:: Patient and Chart Anesthesia Focused Assessment* Temperature: 97.8 F Pulse Rate: 66 Blood Pressure: 149/66 Respiratory Rate: 16 Pulse Ox: 100 Oxygen Delivery Method: Room Air Airway Assessment Mouth opens: >3 cm Mallampati Score: III Teeth Condition: Dentures (Patient's upper dentures are out.) and Missing (Missing several teeth on the bottom. Rest are tight.) Neck Range of motion (ROM): Limited ROM (Slight decrease in extension) Focused Labs Anesthesia Preop lab: CBC WBC 7.5 K/mm3 (4.4-11.0) 12/14/24 15:51 12/14/24 RBC 3.96 M/mm3 (4.6-6.2) L 12/14/24 15:51 12/14/24 Hgb 11.7 g/dL (13.0-16.5) L 12/14/24 15:51 5 Hct 38.6 % (40-54) L 12/14/24 15:51 12/14/24 Plt Count 158 K/mm3 (150-450) 12/14/24 15:51 12/14/24 CHEMISTRY Potassium 4.0 mmol/L (3.3-5.1) 12/14/24 15:51 12/14/24 Sodium 142 mmol/L (133-145) 12/14/24 15:51 12/14/24 BUN 23 mg/dL (4-19) H 12/14/24 15:51 12/14/24 Creatinine 0.87 mg/dL (0.70-1.20) 12/14/24 15:51 12/14/24 Glucose 168 mg/dL (70-99) H 12/14/24 15:51 12/14/24 POC Glucose 118 mg/dL (74-106) H 04/04/24 06:18 04/04/24 COAG Pre-Assessment Diagnosis/Proposed Procedure Planned Operative Procedure(s): EXCISION LEFT CASTAÑEDA SQUAMOUS CELL CARCINOMA POSS SKIN GRAFT Anesthesia History 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 When Was Last Pacemaker Check QUESTION #4 FULL TEXT: You/Your Family Experience fever (hyperthermia) with Anesthesia Last Oral Intake Last Oral intake: Last Oral Intake NPO since Meds taken in AM with sips of water? Meds patient instructed to take am of surgery Any additional information?: Yes NPO since: 00:00 Meds taken in AM with sips of water?: Yes PONV PONV - janitorial services supervisor: PONV - janitorial services supervisor Female No 02/13/25 11:11 HX of Motion Sickness Yes 02/13/25 11:11 HX of N/V After Surgery No 02/13/25 11:11 Non-Smoker Yes 02/13/25 11:11 Duration of Surgery greater Yes 02/13/25 11:11 than 60 minutes Number of Risk Factors 3 02/13/25 11:11 PONV Score Moderate Risk 02/13/25 11:11 Height & Weight Height & Weight: Anesthesia: Height & Weight Height 5 ft 10 in 01/18/25 11:07 Respiratory Assessment Respiratory Assessment - janitorial services supervisor: Respiratory Tract Infection Hx - janitorial services supervisor Hx Respiratory Tract Infection No 02/18/25 11:28 STOP Sleep Apnea STOP Sleep Apnea - janitorial services supervisor: STOP Sleep Apnea - janitorial services supervisor Hx Hypertension Yes: CONTROLLED WITH MED 02/18/25 11:28 Hx Sleep Apnea No 02/13/25 11:11 CPAP No 09/26/13 11:50 BIPAP No 09/26/13 10:19 Do you snore loudly (louder No 02/13/25 11:11 than talking or can be heard Do you often feel tired/ No 02/13/25 11:11 fatigued/ sleepy during daytime? Has anyone observed you stop No 02/13/25 11:11 breathing during sleep? STOP Results Negative 02/13/25 11:11 QUESTION #5 FULL TEXT : Do you snore loudly (louder than talking or can be heard through closed doors)? 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 Specify any problems Hx of Preganancy in last 3 N/A 02/13/25 11:11 Months Nurse Filling Out Transfusion DSCHRIBER 02/13/25 11:11 & Questions: Date: 02/13/25 02/13/25 11:11 Time: 11:13 02/13/25 11:11 Patient unable to answer at this time (ie. confused, unrespo /Reproduction History /Reproductive History - janitorial services supervisor: /Reproductive Hx- janitorial services supervisor Hx Now No 02/13/25 11:11 Gestational Age (in weeks): EDC: Hx Hx Para Hx Section SAB No 02/13/25 11:11 Active Medications Active Medications: Current Medications Generic Name Dose Route Start Last Admin Trade Name Freq PRN Reason Stop Dose Admin Cefazolin Sodium 2 gm/ Sodium 110 mls @ 150 mls/hr 02/27/25 11:10 Chloride IV 02/27/25 11:53 INTRAOP ONE Lactated Ringer's 1,000 mls @ 15 mls/hr 02/27/25 10:00 IV .Q48H KATHLEEN PFSH Medical History Gastric reflux Neuropathy Loss of hearing Wears dentures Cancer Depression Anxiety Diabetes Uses wheelchair Arthritis Prostate disease DVT (deep venous thrombosis) Easy bruising Back pain Non-smoker History of stress test History of echocardiogram Cardiology follow-up encounter History of heart attack 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 ulcer PAF (paroxysmal atrial fibrillation) Left ventricular hypertrophy Essential (primary) hypertension Osteoarthritis Gout 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 Hyperlipidemia 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 HLD (hyperlipidemia) Home Medications ?Medication ?Instructions ?Recorded ?Last Taken ?Type aspirin 81 mg chewable tablet 81 mg PO DAILY@0800 1202/2602/20/25 History lorazepam 1 mg tablet 1 mg PO QHS 09/20/13 Unknown History multivitamin with folic acid 400 1 tab PO DAILY Unknown History mcg tablet tramadol 50 mg tablet 50 mg PO Q4H PRN PRN Pain Unknown History famotidine 20 mg tablet (Acid 20 mg PO DAILY 12/01/18 02/27/25 History Patient Care Technician (famotidine)) ibrutinib 420 mg tablet (Imbruvica) 420 mg PO DAILY 02/26/25 History loratadine 10 mg capsule 10 mg PO DAILY 12/01/18 Unkn own History cholecalciferol (vitamin D3) 25 25 mcg PO DAILY Unknown History mcg (1,000 unit) tablet metformin 500 mg tablet,extended 1,000 mg PO 1200 12/15 04/06 Unknown History release 24 hr tamsulosin 0.4 mg capsule (Flomax) 0.4 mg PO QHS 01/10 Unknown History duloxetine 30 mg capsule,delayed 30 mg PO QDAY 5 02/27/25 History release finasteride 5 mg tablet 5 mg PO QDAY 01/18/25 History gabapentin 600 mg tablet 600 mg PO BID 01/18/2502/27 History lactobacillus combination no.9 4 4,000 mmu cells PO QD AY 01/18/25 Unknown History billion cell capsule (Adult 50 Plus Probiotic) nitroglycerin 0.4 mg sublingual 0.4 mg sublingual Q5M PRN chest 01/18/25 Unknown Rx tablet pain #25 tabs pyridoxine (vitamin B6) 100 mg 200 mg PO DAILY 5 Unknown History tablet simvastatin 20 mg tablet 20 mg PO DAILY #90 tabs 02/08 Unknown Rx metoprolol succinate 25 mg 25 mg PO QHS 02/13/25 Unkno wn History tablet,extended release 24 hr Allergy/AdvReac Type Severity Reaction Status Date / Time niacin (From Niaspan Allergy Severe Unknown Verified 02/27/25 10:36 Extended-Release) Sulfa (Sulfonamide AdvReac Swelling Verified 02/27/25 10:36 Antibiotics) Family History Father Cancer lymphoma Myocardial infarction CAD (coronary artery disease) Mother CVA (cerebral vascular accident) Cancer HLD (hyperlipidemia) Hypertension Brother Myocardial infarction CAD (coronary artery disease) Sister Breast cancer Surgical History History of cardiac catheterization Hx of right cataract extraction Hx of colonoscopy H/O arthroscopic knee surgery History of lithotripsy History of repair of rotator cuff History of coronary artery stent placement (05/13/10) Social History Smoking Status: Never smoker alcohol intake: former substance use type: does not use caffeine: No what type of physical activity do you participate in: none seatbelt use: always do you feel safe at home: Yes Review of Systems (Anesthesia) ROS Narrative System reviewed and no additional complaints, except as documented.
[2025-02-27] MEDS: Cefazolin 2 GM in 0.9% Normal Saline (100mL Bag) 100 ML IV (10:52)
--- NOTE | 2025-02-27 11:10 | LES_PTH ---
PATIENT: BRANDY LOMELI LOC: [facility] U#:[id number] AGE/SX: 84/M ROOM: RE02/27/[address]: Dr. Jeevan Sewell MD : 1940 BED: DIS: 02/27/2025 SPEC #: [id number] RECD: 02/27/25 11:31 STATUS: SHAE LILIA #: [id number] DAMIAN: 02/27/25 11:[address]: Jeevan Sewell DEPT: SURGICAL PATHOLOGY RECD BY: Vimal Mccain ENTERED: 02/27/25 11:59 SP TYPE: Lesion OTHR DR: Dr. 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 Left forearm, squamous cell carcinoma, lesion: Margins, negative for carcinoma. TD. 02/27/2025 MICROSCOPIC DIAGNOSIS A. Skin, left forearm, squamous cell carcinoma, excision: * Negative for malignancy. * Scar and associated reactive changes consistent with a previous surgical procedure. * Actinic keratosis. * Focal benign verrucous keratosis with lichenoid inflammation. MICROSCOPIC DESCRIPTION Slides are reviewed. GROSS DESCRIPTION A. Received fresh for intraoperative consultation in a container labeled with the patient's name, date of , and squamous cell carcinoma left forearm-short prox, long ulnar is an oriented and elliptical skin excision with a long stitch indicating ulnar margin and short stitch indicating proximal margin. The long stitch is now arbitrarily designated as 12:00, and the short stitch is arbitrarily designated as 9:00.The specimen is 3.7 cm from 9-3 o'clock, 2.0 cm from 12-6 o'clock, with a depth up to 0.9 cm. The hollins epidermis exhibits an irregular, ill-defined, and hollins roughened area measuring 2.2 x 1.3 x 0.2 cm. It is situated to the margins as follows:12:00 (ulnar): 0.5 cm6:00 (radial): 0.5 cm3:00 (distal): 1.0 cm9:00 (proximal) : 0.9 cm The 12:00 half is inked blue, and the 6:00 half is inked black. The specimen is serially sectioned from 3:00 to 9:00 to reveal that the roughened area appears to extend 0.5 cm deep but is 0.4 cm from the deep margin. The closest 12 and 6:00 margin is submitted for frozen section analysis. The remaining specimen is submitted entirely as follows:A1. Frozen section remnantA2. 3:00 tip, perpendicularA3. 9:00 tip, perpendicularA4-5. 3:00 half of midportion of specimen (A5 includes deepest point of involvement)A6-7. 9:00 half of midportion of specimen (A6 includes deepest point of involvement)A section diagram is made. [facility] 02-27-2025 CPT:15331,33518
[2025-02-27] MEDS: Lidocaine 1% /Epi 1:100 (20ml) 20 ML Vial (11:15)
[2025-02-27] MEDS: Bupiv/Epi 0.25% 30 ML Vial (11:15)
--- NOTE | 2025-02-27 11:28 | OP.PCM_ITS ---
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: Yes News Reporter: Elif Fletcher Tasks completed by nurse first assist: Retracting Type of Anesthesia: MAC/Supplemental (10 cc of 50-50 mixture of 1% lidocaine with 1-200,000 epinephrine a percent Marcaine with 1-200,000 epinephrine) RN Documented Start/Stop Times: Operation Date: 02/27/25 11:10 Case Time Into Pre-Op 02/27/25 09:59 Anesthesia Start 02/27/25 10:51 Into Room 02/27/25 10:51 Procedure Start 02/27/25 11:15 Procedure Start Time: 11:15 Procedure Stop Time: 11:48 Select all DRAINS/GRAFTS/IMPLANTS that apply: None Estimated Blood Loss: Minimal Specimen collected: No Description of surgery: Indications: Prem Napoles is a delightful 84-year-old male who has a left forearm squamous cell carcinoma. Presents today for excision and closure. Understands risk benefits and alternatives to today's procedure. Procedure details: Patient was correctly identified in preoperative holding and I marked the lesion with him and his in agreement with the site marking. 6 mm margins were marked around the squamous cell cancer. He is doing back to the operating room where he was prepped and draped in sterile fashion administered sedation and local as noted above. Timeout was performed. 15 blade scalpel was used to excise around the lesion with 6 mm margins for total lesion excision of 3.5 x 3.2 cm which included the 6 mm circumferential margins. It was excised full-thickness including some subcutaneous tissue to the level of the underlying Geovanny's fascia. It was sent to pathology for frozen sections which were noted to be negative. The wound was irrigated with copious amounts of normal saline and closed with deep 3-0 PDS sutures followed by running subcuticular 3-0 Monocryl suture for an intermediate closure of 4 cm. Prineo tape was applied. Patient tolerated procedure well and was awakened and taken to the PACU in stable condition. Surgical Findings: No signs of invasion into the deeper tissues Complications Complications: No
[2025-02-27 11:40] LABS: Bedside Glucose 120 mg/dL (74-106)
--- NOTE | 2025-02-27 12:03 | PCM.POST.ANE ---
Anesthesia: Postop Eval I Current Vital Signs Temperature: 98.5 F Pulse Rate: 72 Blood Pressure: 112/66 Respiratory Rate: 16 Pulse Ox: 96 Oxygen Delivery Method: Room Air Assessment Airway patent: Yes Spontaneous unlabored respirations: Yes Mental status: Awake nausea: No Vomiting: No Anesthesia Complication: No Fluid Hydration Crystalloid volume administer (ml): 700 Total IV fluid infused: 700 Progress Note Anesthesia document: Postop Eval 1 completed: Yes
--- NOTE | 2025-02-27 12:18 | POSTOPAN2_ITS ---
Anesthesia Postop Eval I Sum Postop Eval Completion status Anesthesia document: Postop Eval 1 completed: Yes Anesthesia Postop Eval I Summary Anesthesia Postop Eval I Summary: Anesthesia Postop Eval I: Assessment Summary Airway patent Yes 02/27/25 12:04 SCREEN VENT BINDER.[email or web address] Spontaneous unlabored Yes 02/27/25 12:04 SCREEN VENT BINDER.LMIL respirations Mental status Awake 02/27/25 12:04 SCREEN VENT BINDER.LMIL nausea No 02/27/25 12:04 SCREEN VENT BINDER.LMIL Vomiting No 02/27/25 12:04 SCREEN VENT BINDER.LMIL Anesthesia Postop Eval I: Fluid Summary Crystalloid volume administer 700 02/27/25 12:04 SCREEN VENT BINDER.LMIL (ml) Colloids volume administered ( ml) Blood Product volume administered (ml) Total IV fluid infused 700 02/27/25 12:04 SCREEN VENT BINDER.LMIL Anesthesia Postop Eval I: Summary Notes Anesthesia Complication No 02/27/25 12:04 SCREEN VENT BINDER.LMIL Anesthesia Complication Comment: Post-operative progress note Anesthesia: Postop Eval II Evaluation Mental status: Awake Pain Level: 0 nausea: No Vomiting: No
--- NOTE | 2025-02-27 12:18 | PCM.POSTANE2 ---
Anesthesia Postop Eval I Sum Postop Eval Completion status Anesthesia document: Postop Eval 1 completed: Yes Anesthesia Postop Eval I Summary Anesthesia Postop Eval I Summary: Anesthesia Postop Eval I: Assessment Summary Airway patent Yes 02/27/25 12:04 COST [email or web address].[email or web address] Spontaneous unlabored Yes 02/27/25 12:04 COST CONSULTANT.LMIL respirations Mental status Awake 02/27/25 12:04 COST [email or web address].LMIL nausea No 02/27/25 12:04 COST CONSULTANT.LMIL Vomiting No 02/27/25 12:04 COST CONSULTANT.LMIL Anesthesia Postop Eval I: Fluid Summary Crystalloid volume administer 700 02/27/25 12:04 COST CONSULTANT.LMIL (ml) Colloids volume administered ( ml) Blood Product volume administered (ml) Total IV fluid infused 700 02/27/25 12:04 COST CONSULTANT.LMIL Anesthesia Postop Eval I: Summary Notes Anesthesia Complication No 02/27/25 12:04 COST CONSULTANT.LMIL Anesthesia Complication Comment: Post-operative progress note Anesthesia: Postop Eval II Evaluation Mental status: Awake Pain Level: 0 nausea: No Vomiting: No
== END 2025-02-27 13:08 | disposition home or self-care (01) ==
LOC: SDC 09:46 → AC 09:47
PROVIDERS: PCP Family Medicine; Referring Provider Surgery Plastic and Reconstructive Surgery; Visit Provider Surgery Plastic and Reconstructive Surgery
PROC: (CPT 11604; principal; 2025-02-27 11:00)
DX: C44.629 Squamous cell carcinoma of skin of left upper limb, including shoulder (principal); I48.0 Paroxysmal atrial fibrillation; E11.40 Type 2 diabetes mellitus with diabetic neuropathy, unspecified; K21.9 Gastro-esophageal reflux disease without esophagitis; I25.10 Atherosclerotic heart disease of native coronary artery without angina pectoris; I10 Essential (primary) hypertension; E78.5 Hyperlipidemia, unspecified; I25.2 Old myocardial infarction; Z79.82 Long term (current) use of aspirin; Z79.899 Other long term (current) drug therapy; Z79.84 Long term (current) use of oral hypoglycemic drugs; Z86.718 Personal history of other venous thrombosis and embolism; Z95.5 Presence of coronary angioplasty implant and graft
CPT/HCPCS: 11604; 12032; 00400; 82962; 88305; 88331; J2405

== ENCOUNTER 2025-03-14 13:45 | Outpatient (RCR) | payer MEDICARE, SELFPAY ==
[2025-02-14 00:28] VITALS: BP 123/64; PULSE 85; RESP 15; TEMP 35.7; BMI 31.6
[2025-02-18 09:55] VITALS: BP 76/49; PULSE 73; RESP 13; TEMP 35.6; BMI 31.6
--- NOTE | 2025-02-18 11:22 | PN.PCM_ITS ---
History of Present Illness Date of Service: 02/18/25 Chief Complaint: Follow-up on buttocks right and left heel wounds that have been going on for months. History of Wound: Chief Complaint: Follow-up on buttocks right and left heel wounds that have been going on for months. 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 He has not walked in several years. He is able to stand up to perform transfers, but does not move his ankle joints. He lays on his chair most of the day. And has developed a sacral wound that he has been following at the wound care center for as well as a left calcaneal wound in the setting of a recent hospitalization this past year, both of which he has been following here at the wound center with various advanced practice providers. Wound culture of left heel ulcer from 08/08/24 positive for MDRO Pseudomonas aeruginosa. Referral to infectious disease for treatment s/p antibiotic regimen. MRI of Pelvis 08/16/24 - Sacral decubitus ulcer with sacrococcygeal osteomyelitis. Treated by infectious disease with long-term course of IV antibiotics. Progress of Wound: The sacral ulcer with bone palpable but covered with granulation tissue and is beefy pink. There is undermining present, which is stable. The perineal ulcer (skin tear proximal to sacral ulcer) remains healed. Left medial heel appears improved with pink ulcer bed and much less non viable tissue present. He is sleeping on the low air loss mattress. 10 December 2024: Patient reports that he has not had any vascular workup for the lower extremity. He has a history of a DVT in the left lower extremity in the remote history and remains on Eliquis for anticoagulation. He reports episodic swelling in the left lower extremity that appears to be worsening the condition of the wound. He is not having any shortness of breath. He is not having any systemic signs or symptoms of infection. 17 December 2024: Doing well with wound care (VAC dressings) which started this past Tuesday. They have an appointment for ABIs and US for evaluation of the lower extremity. He has not gotten his xray of the foot yet, but is planning to get that soon (discussed). Labs obtained 14 Dec 2024 A1C 6.7 Prealb 27 Alb 3.4 Subjective Subjective 07 January 2025: Imaging reviewed. No osteomyelitis on the xray of the foot. There were no DVT on venous study. Arterial study demonstrated noncompressible vessels 2/2 to significant calcific ations of the vasculature Patient has been doing well overall, however. Tolerating dressing changes. 21 January 2025: Doing well overall with dressing changes except there is been an odor coming from the sacral wound after the VAC changes, his would like us to look today. Patient has seen Dr. Farooq (heart doctor) this past week on 19 January 2025 and he discontinued his amiodarone and his blood thinner (patient has been regular with rate and rhythm). He has been off the blood thinner for greater than 48 hours now. Patient also has a follow-up of his ABIs with vascular surgery on 23 January 2025 (2 days from now) To assess need for intervention for increased blood flow to the foot wound. There is another area of concern in the left forearm today that the patient and his would like me to biopsy. It has been there for several months and growing. It is a scaly/scabby lesion on the left proximal dorsal forearm. Biopsy results (from biopsy on 07 January 2025) of the heel wound did not demonstrate any signs of malignancy. 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 This was discussed with the patient and his . Patient doing well overall and is tolerating the TheraSkin applications to the heel. Wound VAC dressing changes are going well as well Current encounter, 18 Feb 2025: Doing well overall. Tolerating theraskin. On the scheduled for excision of the SSC of the left forearm next week. Objective Data Objective Data Vital Signs: Vital Signs Temp Pulse Resp BP 96.0 F L 73 13 76/49 L 02/18/25 09:55 02/18/25 09:55 02/18/25 09:55 02/18/25 09:55 Weight: 220 lb 0.271 oz Body Mass Index (BMI) 31.6 Charges/Coding Multi Select Codes Integumentary Integumentary CPT Codes: 53874 Skin sub graft face/nk/hf/g Physical Exam Narrative Sacral wound 3.5 x 3.5 cm and1 cm deep. No exposed bone there is granulation over the bone. Tunnels superiorly about 1 cm. Periwound clean without any signs of induration. No fluid collections. Granulation tissue present. No signs of infection. Motor: 4 out of 5 hip flexion and extension bilaterally, 4 out of 5 knee flexion and extension bilaterally, 0 out of 5 foot plantarflexion and dorsiflexion. Sensation: No sensation to light touch on the feet. Consistent with peripheral neuropathy. Vascular: No palpable pulses but the feet are warm bilaterally. Lymph Lymphatic: no lymphadenopathy noted Lymphatic Narrative: No left axillary or left antecubital lymphadenopathy Cardio regular rate and regular rhythm Extremity Extremity Narrative: Left plantar wound, some granulating soft tissue over the calcaneus 4.5 x 3 cm and 0.1 deep No signs of infection today Left upper extremity 2 x 2 cm dorsal proximal ulnar forearm squamous cell carcinoma with surrounding induration at the base. Biopsy site healed well since biopsy, but still residual neoplasm. Debridement Note Debridement Note No debridement was completed: No debridement was completed today Post-Debridement Measurements and Additional Note: Post-Debridement Measurements/Treatment WC - Nurse 1 - General Ulcer Assessment Start: 02/18/25 09:55 Freq: Status: Active Protocol: CHEL Activity Type Activity Date Activity User E-sign Co-sign Detail Recorded Client Recorded Date Recorded By Document 02/18/25 09:55 [id number] 02/18/25 10:09 02/18/25 09:55 - Today's Visit Information Type of service Follow-up Visit (Physician/NCQA SPECIALIST ) Arrival Mode Wheelchair Transfer Assistance Manual Patient Identification Verified (Name & Yes ) Patient Requires Transmission-Based No Precautions Height and Weight Body Mass Index (BMI) 31.6 BMI Classification Obese Vital Signs Temperature (97.8 F-99.1 F) 96.0 F L Temperature Source Temporal Pulse Rate (60-100) 73 Pulse Location Monitor Respiratory Rate (12-18) 13 Respiratory rate source Observation Blood Pressure (90/60-120/80) 76/49 L Blood Pressure Mean (mm Hg) 58 Source Monitor Position Sitting Blood Pressure Location Right Arm History Since Last Visit- (Skip if this is Patient's initial visit) Have you changed medications since your No last visit? Any new allergies or adverse reactions No Had a fall/change in ADL's that may No increase risk of falls Signs or symptoms of abuse and/or No neglect since last visit Have you been in the hospital since your No last visit? Has dressing in place as prescribed Yes Has compression in place as prescribed N/A Has offloadiing in place as prescribed N/A Experienced any changes in pain level or No management Pain Scale: 0-10 Numeric Is Patient Pain Free? Yes WC - Nurse 1 - General Ulcer Measurement Start: 02/18/25 09:55 Freq: Status: Active Protocol: Activity Type Activity Date Activity User E-sign Co-sign Detail Recorded Client Recorded Date Recorded By Document 02/18/25 09:55 [id number] 02/18/25 10:09 KW 02/18/25 09:55 Wound Center Nurse 1 5. left FA -Wound Comment(s) did not adress today in nurse one #2 L Heel -Current Size (cm) - Length 4.9 -Current Size (cm) - Width 4 -Current Size (cm) - Depth 0.2 -Total Square Cm 19.6 -Date of Last Picture (Recall this 02/18/25 field) -Exudate Amt Large -Exudate Type Serosanguineous -Wound Margin Distinct, Outline Attached -Granulation Amt Large (67-100%) -Granulation Quality [place],Red -Texture (Andreea-wound Skin Appearance) Assessed -Moisture (Andreea-wound Skin Appearance) Assessed, Maceration -Color (Andreea-wound Skin Appearance) Assessed -Temperature (Andreea-wound Skin No Abnormality Appearance) (Pt Warm) -Tenderness on Palpation (Andreea-wound No Skin Appearance) -Ulcer Cleansing Soap and Water -Anesthetic Used 5% Lidocaine Gel #1 Sacral Cluster -Current Size (cm) - Length 3 -Current Size (cm) - Width 2 -Current Size (cm) - Depth 2 -Total Square Cm 6 -Date of Last Picture (Recall this 02/18/25 field) -Exudate Amt Large -Exudate Type Serosanguineous -Wound Margin Distinct, Outline Attached -Granulation Amt Large (67-100%) -Granulation Quality [place],Red -Necrosis Amt Small (1-33%) -Necrotic Tissue Type Adherent Slough -Texture (Andreea-wound Skin Appearance) Assessed -Moisture (Andreea-wound Skin Appearance) Assessed, Maceration -Color (Andreea-wound Skin Appearance) Assessed -Tenderness on Palpation (Andreea-wound No Skin Appearance) -Ulcer Cleansing Soap and Water -Foul Odor after Cleansing No -Anesthetic Used 4% Lidocaine Solution Left Calf (cm) 40 Left Ankle (cm) 23 WC - Nurse 2 - General Ulcer CM Notes Start: 02/18/25 09:55 Freq: Status: Active Protocol: Activity Type Activity Date Activity User E-sign Co-sign Detail Recorded Client Recorded Date Recorded By Document 02/18/25 10:12 [facility] [id number] 02/18/25 10:26 [facility] 02/18/25 10:12 Wound Center Nurse 2 #2 L Heel -Time 10:22 -Correct Patient Yes -Correct Side, Site, Position Yes -Correct Procedure Yes -Procedure Performed Yes -Type of Procedure Debridement -Clinical Debridement Subcutaneous -Tissue Removed Subcutaneous -Post Debridement (cm) - Length 4.5 -Post Debridement (cm) - Width 3 -Post Debridement (cm) - Depth 0.1 -Total Square (Post) (cm) 13.5 -Area of Debridement (cm) - Length 4.5 -Area of Debridement (cm) - Width 3 -Total Square (Area) (cm) 13.5 -Tunneling No -Undermining/Tunneling No -Circular Undermining No -Wound/Ulcer Outcome Not Healed -Ulcer Cleansing Rinsed/ Irrigated with Saline -Foul Odor after Cleansing No -Type of Bioengineered Tissue Theraskin -Expiration Date 05/14/29 -Product Lot Number [id number] -Percent Used 100 -Lot number of Saline Used [id number] -Bleeding Controlled with Pressure -Treatment Response Procedure Tolerated Well -Debridement - Subq, 1st 20sq cm No -Apply Skin Sub - 1st 25 sq cm - Feet 1 -Theraskin - 26TS (26 SQ CM) 26 Application 1-4 (per sq cm) #1 Sacral Cluster -Time 10:17 -Procedure Performed No -Post Debridement (cm) - Length 3.5 -Post Debridement (cm) - Width 3.5 -Post Debridement (cm) - Depth 1 -Total Square (Post) (cm) 12.25 -Area of Debridement (cm) - Length 3.5 -Area of Debridement (cm) - Width 3.5 -Total Square (Area) (cm) 12.25 -Tunneling No -Undermining/Tunneling No -Circular Undermining No -Wound/Ulcer Outcome Not Healed -Bleeding Controlled with NA Pain Scale: 0-10 Numeric Is Patient Pain Free? Yes SHAYLA - Nurse 3 - General Ulcer D/C NN Start: 02/18/25 09:55 Freq: Status: Active Protocol: Activity Type Activity Date Activity User E-sign Co-sign Detail Recorded Client Recorded Date Recorded By Document 02/18/25 10:31 KW [id number] 02/18/25 10:37 KW 02/18/25 10:31 Wound Care Center Nurse 3 5. left FA -Primary Dressing Applied Silicone Border Foam 4x4 -Silicone Border Foam 4x4 1 -Wound Comment(s) pad and protect #2 L Heel -Primary Dressing Covered/Secured with Dry Gauze & Roll Gauze, Secured with Tape #1 Sacral Cluster -Negative Pressure Wound Therapy Continue -Pieces of Black Foam Inserted 1 -NPWT Application Charge NPWT </= 50 sq cm ($) -Setting (mmHg) 125 -Negative Pressure is Continuous LLE -Tubular Bandage Double Layer -Size of Tubigrip Used Size F -Size F ($) 2 -Other double F d/t being out of E Pain Scale: 0-10 Numeric Is Patient Pain Free? 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 He will need 6 mm margins. This was all discussed with the patient and his . We discussed the risk benefits and alternatives of surgery. They understand the risk of wound healing complications and infection, as well as recurrence of the cancer. CPT codes for insurance prior authorization are as follows: 82143, [id number], [id number], [id number], [id number] (2) Pressure ulcer of left heel, stage 3: CODE(S): L89.623 - Pressure ulcer of left heel, stage 3 PLAN: I talked to the patient that the risks, benefits, and alternatives to reconstruction with dermal substitute and eventual skin grafting. He is not interested in skin grafting and would like to try a skin substitute such as there is skin first. We are going to try that in clinic and will submit for approval. Vascular surgery was consulted. Noncompressible arterial vessels at the ankles, but waveforms were reassuring. Given history of diabetes and arterial insufficiency, however, they have ordered a CTA with runoff to evaluate for focal stenosis. He will follow-up with vascular. Otherwise we will continue to treat with skin substitute (Theraskin) TheraSkin was placed today Procedure details: The wound was cleaned and debrided with a 5 mm curette removing biofilm and debris. A 26 cm? TheraSkin was applied and trimmed to fit. The wound measured 4 x 3 cm. The TheraSkin was applied and Dermabond was used to keep it place on the skin edges. A wound veil was then applied with Steri-Strips and an ABD and tape Patient is will change the ABD and tape daily. Follow-up in 1 week for another treatment (3) Sacral decubitus ulcer, stage IV: CODE(S): L89.154 - Pressure ulcer of sacral region, stage 4 PLAN: Continue wound VAC dressing 3 times per week. Wound is getting smaller and granulating in. (4) Neoplasm of uncertain behavior of skin: CODE(S): D48.5 - Neoplasm of uncertain behavior of skin PLAN: Determined to be a squamous cell carcinoma (see above) PLAN: Plan Continue pressure offloading with low air loss mattress Continue PODUS boot for pressure offloading of the foot
--- NOTE | 2025-02-18 14:35 | WC ---
PHOTO 02/18/25 SACRUM
--- NOTE | 2025-02-18 14:37 | WC ---
PHOTO 02/18/25 LEFT HEEL
[2025-02-25 09:56] VITALS: BP 117/54; PULSE 72; RESP 18; TEMP 35.9; BMI 31.6
--- NOTE | 2025-02-26 09:20 | PN.PCM_ITS ---
History of Present Illness Date of Service: 02/25/25 Chief Complaint: Follow-up on buttocks right and left heel wounds that have been going on for months. History of Wound: Chief Complaint: Follow-up on buttocks right and left heel wounds that have been going on for months. 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 He has not walked in several years. He is able to stand up to perform transfers, but does not move his ankle joints. He lays on his chair most of the day. And has developed a sacral wound that he has been following at the wound care center for as well as a left calcaneal wound in the setting of a recent hospitalization this past year, both of which he has been following here at the wound center with various advanced practice providers. Wound culture of left heel ulcer from 08/08/24 positive for MDRO Pseudomonas aeruginosa. Referral to infectious disease for treatment s/p antibiotic regimen. MRI of Pelvis 08/16/24 - Sacral decubitus ulcer with sacrococcygeal osteomyelitis. Treated by infectious disease with long-term course of IV antibiotics. Progress of Wound: The sacral ulcer with bone palpable but covered with granulation tissue and is beefy pink. There is undermining present, which is stable. The perineal ulcer (skin tear proximal to sacral ulcer) remains healed. Left medial heel appears improved with pink ulcer bed and much less non viable tissue present. He is sleeping on the low air loss mattress. 10 December 2024: Patient reports that he has not had any vascular workup for the lower extremity. He has a history of a DVT in the left lower extremity in the remote history and remains on Eliquis for anticoagulation. He reports episodic swelling in the left lower extremity that appears to be worsening the condition of the wound. He is not having any shortness of breath. He is not having any systemic signs or symptoms of infection. 17 December 2024: Doing well with wound care (VAC dressings) which started this past Tuesday. They have an appointment for ABIs and US for evaluation of the lower extremity. He has not gotten his xray of the foot yet, but is planning to get that soon (discussed). Labs obtained 14 Dec 2024 A1C 6.7 Prealb 27 Alb 3.4 Subjective Subjective 07 January 2025: Imaging reviewed. No osteomyelitis on the xray of the foot. There were no DVT on venous study. Arterial study demonstrated noncompressible vessels 2/2 to significant calcific ations of the vasculature Patient has been doing well overall, however. Tolerating dressing changes. 21 January 2025: Doing well overall with dressing changes except there is been an odor coming from the sacral wound after the VAC changes, his would like us to look today. Patient has seen Dr. Farooq (heart doctor) this past week on 19 January 2025 and he discontinued his amiodarone and his blood thinner (patient has been regular with rate and rhythm). He has been off the blood thinner for greater than 48 hours now. Patient also has a follow-up of his ABIs with vascular surgery on 23 January 2025 (2 days from now) To assess need for intervention for increased blood flow to the foot wound. There is another area of concern in the left forearm today that the patient and his would like me to biopsy. It has been there for several months and growing. It is a scaly/scabby lesion on the left proximal dorsal forearm. Biopsy results (from biopsy on 07 January 2025) of the heel wound did not demonstrate any signs of malignancy. 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 This was discussed with the patient and his . Patient doing well overall and is tolerating the TheraSkin applications to the heel. Wound VAC dressing changes are going well as well 18 Feb 2025: Doing well overall. Tolerating theraskin. On the scheduled for excision of the SSC of the left forearm next week. Current encounter, 27 Feb 2025: Tolerating TheraSkin. No fevers chills. All questions answered about once his excision procedure for left forearm squamous cell carcinoma. Patient has been seeing his oncologist and has been getting infusions to increase his white blood cell counts and promote healing. Objective Data Objective Data Vital Signs: Vital Signs Temp Pulse Resp BP 96.6 F L 72 18 117/54 L 02/25/25 09:56 02/25/25 09:56 02/25/25 09:56 02/25/25 09:56 Weight: 220 lb 0.271 oz Body Mass Index (BMI) 31.6 Charges/Coding Procedures Integumentary 150xxx-152xx: 34515 Skin sub graft face/nk/hf/g Physical Exam Narrative Sacral wound 2.4 x 2.8 cm and 0.4 cm deep. No exposed bone there is granulation over the bone. Tunnels superiorly about 1 cm. Periwound clean without any signs of in duration. No fluid collections. Granulation tissue present. No signs of infection. Motor: 4 out of 5 hip flexion and extension bilaterally, 4 out of 5 knee flexion and extension bilaterally, 0 out of 5 foot plantarflexion and dorsiflexion. Sensation: No sensation to light touch on the feet. Consistent with peripheral neuropathy. Vascular: No palpable pulses but the feet are warm bilaterally. Lymph Lymphatic: no lymphadenopathy noted Lymphatic Narrative: No left axillary or left antecubital lymphadenopathy Cardio regular rate and regular rhythm Extremity Extremity Narrative: Left plantar wound, some granulating soft tissue over the calcaneus 4.5 x 3.5 cm and 0.1 deep No signs of infection today Left upper extremity 2 x 2 cm dorsal proximal ulnar forearm squamous cell carcinoma with surrounding induration at the base. Biopsy site healed well since biopsy, but still residual neoplasm. Debridement Note Debridement Note No debridement was completed: No debridement was completed today Post-Debridement Measurements and Additional Note: Post-Debridement Measurements/Treatment - Nurse 1 - General Ulcer Assessment Start: 02/18/25 09:55 Freq: Status: Active Protocol: [email or web address] [email or web address] Activity Type Activity Date Activity User E-sign Co-sign Detail Recorded Client Recorded Date Recorded By Document 02/18/25 09:55 TIM [id number] 02/18/25 10:09 KW Document 02/25/25 09:56 MARK ANTHONY [id number] 02/25/25 10:10 MARK ANTHONY 02/18/25 02/25/25 09:55 09:56 - Today's Visit Information Type of service Follow-up Visit Follow-up Visit (Physician/PLASTICS PATTERNMAKER (Physician/PLASTICS PATTERNMAKER ) ) Arrival Mode Wheelchair Wheelchair Transfer Assistance Manual Manual Accompanied by Patient Identification Verified (Name & Yes Yes ) Patient Requires Transmission-Based No No Precautions Height and Weight Body Mass Index (BMI) 31.6 31.6 BMI Classification Obese Obese Vital Signs Temperature (97.8 F-99.1 F) 96.0 F L 96.6 F L Temperature Source Temporal Temporal Pulse Rate (60-100) 73 72 Pulse Location Monitor Monitor Respiratory Rate (12-18) 13 18 Respiratory rate source Observation Observation Blood Pressure (90/60-120/80) 76/49 L 117/54 L Blood Pressure Mean (mm Hg) 58 75 Source Monitor Monitor Position Sitting Sitting Blood Pressure Location Right Arm Right Forearm History Since Last Visit- (Skip if this is Patient's initial visit) Have you changed medications since your No No last visit? Any new allergies or adverse reactions No No Had a fall/change in ADL's that may No No increase risk of falls Signs or symptoms of abuse and/or No No neglect since last visit Have you been in the hospital since your No No last visit? Has dressing in place as prescribed Yes Yes Has compression in place as prescribed N/A Yes Has offloadiing in place as prescribed N/A Yes Experienced any changes in pain level or No No management Left Footwear Surgical Shoe with pressure relief insole Right Footwear Regular Shoe Pain Scale: 0-10 Numeric Is Patient Pain Free? Yes Yes WC - Nurse 1 - General Ulcer Measurement Start: 02/18/25 09:55 Freq: Status: Active Protocol: Activity Type Activity Date Activity User E-sign Co-sign Detail Recorded Client Recorded Date Recorded By Document 02/18/25 09:55 KW [id number] 02/18/25 10:09 KW Document 02/25/25 09:56 JF [id number] 02/25/25 10:10 JF 02/18/25 02/25/25 09:55 09:56 Wound Center Nurse 1 5. left FA -Wound Comment(s) did not adress today in nurse one #2 L Heel -Combined with other wound No -Current Size (cm) - Length 4.9 4.5 -Current Size (cm) - Width 4 3.3 -Current Size (cm) - Depth 0.2 0.2 -Total Square Cm 19.6 14.85 -Date of Last Picture (Recall this 02/18/25 field) -Photo Taken Yes -Epithelialization Small 1-33% -Tunneling No -Undermining/Tunneling No -Circular Undermining No -Exudate Amt Large Medium -Exudate Type Serosanguineous Serosanguineous -Wound Margin Distinct, Flat & Intact Outline Attached -Granulation Amt Large (67-100%) Medium (34-66%) -Granulation Quality Price,Red Price -Slough/Fibrin Yes -Necrosis Amt Medium (34-66%) -Necrotic Tissue Type Adherent Slough -Structure Exposed N/A -Texture (Andreea-wound Skin Appearance) Assessed No Abnormality, Assessed -Moisture (Andreea-wound Skin Appearance) Assessed, Assessed, Maceration Weeping -Color (Andreea-wound Skin Appearance) Assessed Assessed -Temperature (Anrdeea-wound Skin No Abnormality No Abnormality Appearance) (Pt Warm) (Pt Warm) -Tenderness on Palpation (Andreea-wound No No Skin Appearance) -Ulcer Cleansing Soap and Water Soap and Water -Foul Odor after Cleansing No -Anesthetic Used 5% Lidocaine 5% Lidocaine Gel Gel #1 Sacral Cluster -Combined with other wound No -Current Size (cm) - Length 3 2.4 -Current Size (cm) - Width 2 0.4 -Current Size (cm) - Depth 2 2.8 -Total Square Cm 6 0.96 -Date of Last Picture (Recall this 02/18/25 field) -Photo Taken Yes -Epithelialization None Present -Tunneling No -Undermining/Tunneling No -Circular Undermining No -Exudate Amt Large Large -Exudate Type Serosanguineous Serosanguineous -Wound Margin Distinct, Flat & Intact Outline Attached -Granulation Amt Large (67-100%) Large (67-100%) -Granulation Quality Price,Red Red -Slough/Fibrin Yes -Necrosis Amt Small (1-33%) Small (1-33%) -Necrotic Tissue Type Adherent Slough Adherent Slough -Structure Exposed Muscle,N/A -Texture (Andreea-wound Skin Appearance) Assessed Assessed, Excoriation -Moisture (Andreea-wound Skin Appearance) Assessed, Assessed, Maceration Maceration -Color (Andreea-wound Skin Appearance) Assessed Assessed -Temperature (Andreea-wound Skin No Abnormality Appearance) (Pt Warm) -Tenderness on Palpation (Andreea-wound No No Skin Appearance) -Ulcer Cleansing Soap and Water Soap and Water -Foul Odor after Cleansing No No -Anesthetic Used 4% Lidocaine 5% Lidocaine Solution Gel Lower Limb Edema Present No Left Calf (cm) 40 Left Ankle (cm) 23 WC - Nurse 2 - General Ulcer CM Notes Start: 02/18/25 09:55 Freq: Status: Active Protocol: Activity Type Activity Date Activity User E-sign Co-sign Detail Recorded Client Recorded Date Recorded By Document 02/18/25 10:12 BMF [id number] 02/18/25 10:26 BMF Edit Result 02/18/25 10:12 BMF (1) [id number] 02/18/25 11:24 BMF Edit Result 02/18/25 10:12 BMF (2) [id number] 02/18/25 13:26 BMF Document 02/25/25 10:22 BMF [id number] 02/25/25 10:31 BMF Edit Result 02/25/25 10:22 BMF (3) [id number] 02/25/25 13:38 BMF (1) #2 L Heel - Dermabond => 2 (2) 5. left FA - Time => 10:12 - Procedure Performed => No - Bleeding Controlled with => NA - Wound Comment(s) => PT WILL BE HAVING SURGERY W/ SISKA FOR THIS #2 L Heel - Bioengineered Tissue => Yes (3) #1 Sacral Cluster - Post Debridement (cm) - Length => 2.4 - Post Debridement (cm) - Width => 0.4 - Post Debridement (cm) - Depth => 2.8 - Total Square (Post) (cm) => 0.96 - Area of Debridement (cm) - Length => 2.4 - Area of Debridement (cm) - Width => 0.4 - Total Square (Area) (cm) => 0.96 - Wound/Ulcer Outcome => Not Healed - Bleeding Controlled with => NA 02/18/25 02/25/25 10:12 10:22 Wound Center Nurse 2 5. left FA -Time 10:12 -Procedure Performed No -Bleeding Controlled with NA -Wound Comment(s) PT WILL BE HAVING SURGERY W/ SISKA FOR THIS #2 L Heel -Time 10:22 10:23 -Correct Patient Yes Yes -Correct Side, Site, Position Yes Yes -Correct Procedure Yes Yes -Procedure Performed Yes Yes -Type of Procedure Debridement Debridement -Clinical Debridement Subcutaneous Subcutaneous -Tissue Removed Subcutaneous Subcutaneous -Post Debridement (cm) - Length 4.5 4.5 -Post Debridement (cm) - Width 3 3.5 -Post Debridement (cm) - Depth 0.1 0.1 -Total Square (Post) (cm) 13.5 15.75 -Area of Debridement (cm) - Length 4.5 4.5 -Area of Debridement (cm) - Width 3 3.5 -Total Square (Area) (cm) 13.5 15.75 -Tunneling No No -Undermining/Tunneling No No -Circular Undermining No No -Wound/Ulcer Outcome Not Healed Not Healed -Ulcer Cleansing Rinsed/ Rinsed/ Irrigated with Irrigated with Saline Saline -Foul Odor after Cleansing No No -Bioengineered Tissue Yes No -Type of Bioengineered Tissue Theraskin Theraskin -Expiration Date 05/14/29 03/28/27 -Product Lot Number [id number] -Percent Used 100 100 -Lot number of Saline Used [id number] -Injectable Lidocaine w/ Epi (%) 1 -Injectable Lidocaine w/ Epi (mls) 10 -Bleeding Controlled with Pressure Silver Nitrate ($) -Treatment Response Procedure Procedure Tolerated Well Tolerated Well -Debridement - Subq, 1st 20sq cm No No -Apply Skin Sub - 1st 25 sq cm - Feet 1 1 -Apply Skin Sub - each addt'l 25 sq cm 1 - Feet -Dermabond 2 -Theraskin - 26TS (26 SQ CM) 26 26 Application 1-4 (per sq cm) #1 Sacral Cluster -Time 10:17 10:28 -Procedure Performed No No -Post Debridement (cm) - Length 3.5 2.4 -Post Debridement (cm) - Width 3.5 0.4 -Post Debridement (cm) - Depth 1 2.8 -Total Square (Post) (cm) 12.25 0.96 -Area of Debridement (cm) - Length 3.5 2.4 -Area of Debridement (cm) - Width 3.5 0.4 -Total Square (Area) (cm) 12.25 0.96 -Tunneling No -Undermining/Tunneling No -Circular Undermining No -Wound/Ulcer Outcome Not Healed Not Healed -Bleeding Controlled with NA NA Pain Scale: 0-10 Numeric Is Patient Pain Free? Yes Yes WC - Nurse 3 - General Ulcer D/C NN Start: 02/18/25 09:55 Freq: Status: Active Protocol: Activity Type Activity Date Activity User E-sign Co-sign Detail Recorded Client Recorded Date Recorded By Document 02/18/25 10:31 KW [id number] 02/18/25 10:37 KW Document 02/25/25 11:04 DL [id number] 02/25/25 11:09 DL 02/18/25 02/25/25 10:31 11:04 Wound Care Center Nurse 3 5. left FA -Primary Dressing Applied Silicone Border Foam 4x4 -Silicone Border Foam 4x4 1 -Wound Comment(s) pad and protect #2 L Heel -Ulcer Cleansing Not Cleansed -Other Dressing Threraskin -Primary Dressing Covered/Secured with Dry Gauze & Dry Gauze & Roll Gauze, Roll Gauze, Secured with Secured with Tape Tape -Other Covering Nurse Hat #1 Sacral Cluster -Ulcer Cleansing Dakins -Foul Odor after Cleansing No -Negative Pressure Wound Therapy Continue Continue -Pieces of Black Foam Inserted 1 1 -NPWT Application Charge NPWT </= 50 sq NPWT > 50 sq cm cm ($) ($) -Setting (mmHg) 125 125 -Negative Pressure is Continuous Continuous -Wound Comment(s) Rinse with dakins prior to vac change. No Debridement today. LLE -Tubular Bandage Double Layer -Size of Tubigrip Used Size F -Size F ($) 2 -Other double F d/t being out of E Pain Scale: 0-10 Numeric Is Patient Pain Free? 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 He will need 6 mm margins. This was all discussed with the patient and his . We discussed the risk benefits and alternatives of surgery. They understand the risk of wound healing complications and infection, as well as recurrence of the cancer. CPT codes for insurance prior authorization are as follows: 98488, 92505, 03301, [id number], 17314 (2) Pressure ulcer of left heel, stage 3: CODE(S): L89.623 - Pressure ulcer of left heel, stage 3 PLAN: I talked to the patient that the risks, benefits, and alternatives to reconstruction with dermal substitute and eventual skin grafting. He is not interested in skin grafting and would like to try a skin substitute such as there is skin first. We are going to try that in clinic and will submit for approval. Vascular surgery was consulted. Noncompressible arterial vessels at the ankles, but waveforms were reassuring. Given history of diabetes and arterial insufficiency, however, they have ordered a CTA with runoff to evaluate for focal stenosis. He will follow-up with vascular. Otherwise we will continue to treat with skin substitute (Theraskin) TheraSkin was placed today Procedure details (25 Feb 2025) The wound was cleaned and debrided with a 5 mm curette removing biofilm and debris. A 26 cm? TheraSkin was applied and trimmed to fit. The wound measured 4.5 x 3.5 cm. The TheraSkin was applied and Dermabond was used to keep it place on the skin edges. A wound veil was then applied with Steri-Strips and an ABD and tape Patient is will change the ABD and tape daily. Follow-up in 1 week for another treatment (3) Sacral decubitus ulcer, stage IV: CODE(S): L89.154 - Pressure ulcer of sacral region, stage 4 PLAN: Continue wound VAC dressing 3 times per week. Wound is getting smaller and granulating in. (4) Neoplasm of uncertain behavior of skin: CODE(S): D48.5 - Neoplasm of uncertain behavior of skin PLAN: Determined to be a squamous cell carcinoma (see above) PLAN: Plan Continue pressure offloading with low air loss mattress Continue PODUS boot for pressure offloading of the foot
--- NOTE | 2025-02-27 09:44 | WC ---
PHOTO SACRUM 02/25/25
--- NOTE | 2025-02-27 09:47 | WC ---
PHOTO 02/25/25 HEEL
[2025-03-04 09:59] VITALS: BP 131/67; PULSE 71; RESP 16; TEMP 35.7; BMI 31.6
--- NOTE | 2025-03-04 17:10 | PCM.WC.PN ---
History of Present Illness Date of Service: 03/04/25 Chief Complaint: Follow-up on buttocks right and left heel wounds that have been going on for months. History of Wound: Chief Complaint: Follow-up on buttocks right and left heel wounds that have been going on for months. 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 He has not walked in several years. He is able to stand up to perform transfers, but does not move his ankle joints. He lays on his chair most of the day. And has developed a sacral wound that he has been following at the wound care center for as well as a left calcaneal wound in the setting of a recent hospitalization this past year, both of which he has been following here at the wound center with various advanced practice providers. Wound culture of left heel ulcer from 08/08/24 positive for MDRO Pseudomonas aeruginosa. Referral to infectious disease for treatment s/p antibiotic regimen. MRI of Pelvis 08/16/24 - Sacral decubitus ulcer with sacrococcygeal osteomyelitis. Treated by infectious disease with long-term course of IV antibiotics. Progress of Wound: The sacral ulcer with bone palpable but covered with granulation tissue and is beefy pink. There is undermining present, which is stable. The perineal ulcer (skin tear proximal to sacral ulcer) remains healed. Left medial heel appears improved with pink ulcer bed and much less non viable tissue present. He is sleeping on the low air loss mattress. 10 December 2024: Patient reports that he has not had any vascular workup for the lower extremity. He has a history of a DVT in the left lower extremity in the remote history and remains on Eliquis for anticoagulation. He reports episodic swelling in the left lower extremity that appears to be worsening the condition of the wound. He is not having any shortness of breath. He is not having any systemic signs or symptoms of infection. 17 December 2024: Doing well with wound care (VAC dressings) which started this past Tuesday. They have an appointment for ABIs and US for evaluation of the lower extremity. He has not gotten his xray of the foot yet, but is planning to get that soon (discussed). Labs obtained 14 Dec 2024 A1C 6.7 Prealb 27 Alb 3.4 Subjective Subjective 07 January 2025: Imaging reviewed. No osteomyelitis on the xray of the foot. There were no DVT on venous study. Arterial study demonstrated noncompressible vessels 2/2 to significant calcifications of the vasculature Patient has been doing well overall, however. Tolerating dressing changes. 21 January 2025: Doing well overall with dressing changes except there is been an odor coming from the sacral wound after the VAC changes, his would like us to look today. Patient has seen Dr. Farooq (heart doctor) this past week on 19 January 2025 and he discontinued his amiodarone and his blood thinner (patient has been regular with rate and rhythm). He has been off the blood thinner for greater than 48 hours now. Patient also has a follow-up of his ABIs with vascular surgery on 23 January 2025 (2 days from now) To assess need for intervention for increased blood flow to the foot wound. There is another area of concern in the left forearm today that the patient and his would like me to biopsy. It has been there for several months and growing. It is a scaly/scabby lesion on the left proximal dorsal forearm. Biopsy results (from biopsy on 07 January 2025) of the heel wound did not demonstrate any signs of malignancy. 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 This was discussed with the patient and his . Patient doing well overall and is tolerating the TheraSkin applications to the heel. Wound VAC dressing changes are going well as well 18 Feb 2025: Doing well overall. Tolerating theraskin. On the scheduled for excision of the SSC of the left forearm next week. 27 Feb 2025: Tolerating TheraSkin. No fevers chills. All questions answered about once his excision procedure for left forearm squamous cell carcinoma. Patient has been seeing his oncologist and has been getting infusions to increase his white blood cell counts and promote healing. Current encounter, 04 Mar 2025: Reviewed pathology with the patient and his at today's visit from the left forearm squamous cell carcinoma excision. It was negative for malignancy, margins were free from carcinoma. Patient tolerated the procedure well and is feeling well. No pain. No numbness in the forearm. No drainage or fevers chills. Patient here for the foot wound and the sacral wound is well. Reports excellent VAC changes and tolerance of the TheraSkin. Objective Data Objective Data Vital Signs: Vital Signs Temp Pulse Resp BP 96.2 F L 71 16 131/67 H 03/04/25 09:59 03/04/25 09:59 03/04/25 09:59 03/04/25 09:59 Weight: 220 lb 0.271 oz Body Mass Index (BMI) 31.6 Charges/Coding Procedures Integumentary 111xxx-113xx: 77197 Ginette musc/fascia 20 sq cm/< 150xxx-152xx: 76151 Skin sub graft face/nk/hf/g Multi Select Codes Integumentary Integumentary CPT Codes: 04246 Skin Graft substitute addl 25c Physical Exam Narrative Sacral wound 2 x 1.5 cm and 1 cm deep, tunneling 1 cm at the 9:00, 12:00, and 3:00 positions. no exposed bone there is granulation over the bone. Periwound clean without any signs of induration. No fluid collections. Granulation tissue present. No signs of infection. Heel wound is 3 x 4.5 cm and seems to be healing from the outside and. Beefy red-pink granulation tissue at the base of the wound 1 TheraSkin removed. Motor: 4 out of 5 hip flexion and extension bilaterally, 4 out of 5 knee flexion and extension bilaterally, 0 out of 5 foot plantarflexion and dorsiflexion. Sensation: No sensation to light touch on the feet. Consistent with peripheral neuropathy. Vascular: No palpable pulses but the feet are warm bilaterally. Lymph Lymphatic: no lymphadenopathy noted Lymphatic Narrative: No left axillary or left antecubital lymphadenopathy Cardio regular rate and regular rhythm Extremity Extremity Narrative: Left upper extremity Incision is clean dry and intact with Prineo tape in place. No signs of infection Debridement Note Debridement Note Wound debrided: Sacral wound Laterality: Not Applicable Wound Grade/Stage: Stage III Type of Debridement: Excisional debridement Anesthesia Used: 4% Lidocaine Solution and - (10 cc of 1% lidocaine with 1-200,000 epinephrine) Depth: to muscle Percentage of wound debrided: 100 Instrument Used: 7mm curette Tissue Removed: Necrotic fascia and fibrinous exudate at the level of the fascia/muscle Severity: Necrosis of Muscle Amount of bleeding with debridement: Moderate Bleeding Controlled with: Compression and gauze and - (The epinephrine and the local as noted above) Patient tolerated procedure: Patient tolerated procedure well Post-Debridement Measurements and Additional Note: Post-Debridement Measurements/Treatment - Nurse 1 - General Ulcer Assessment Start: 02/18/25 09:55 Freq: Status: Active Protocol: CHEL Activity Type Activity Date Activity User E-sign Co-sign Detail Recorded Client Recorded Date Recorded By Document 02/18/25 09:55 KW [id number] 02/18/25 10:09 KW Document 02/25/25 09:56 JF [id number] 02/25/25 10:10 JF Document 03/04/25 09:59 JF [id number] 03/04/25 10:13 JF 02/18/25 02/25/25 03/04/25 09:55 09:56 09:59 - Today's Visit Information Type of service Follow-up Visit Follow-up Visit Follow-up Visit (Physician/HOURLY ASSOCIATE (Physician/HOURLY ASSOCIATE (Physician/HOURLY ASSOCIATE ) ) ) Arrival Mode Wheelchair Wheelchair Wheelchair Transfer Assistance Manual Manual Manual Accompanied by Patient Identification Verified (Name & Yes Yes Yes ) Patient Requires Transmission-Based No No No Precautions Height and Weight Body Mass Index (BMI) 31.6 31.6 31.6 BMI Classification Obese Obese Obese Vital Signs Temperature (97.8 F-99.1 F) 96.0 F L 96.6 F L 96.2 F L Temperature Source Temporal Temporal Temporal Pulse Rate (60-100) 73 72 71 Pulse Location Monitor Monitor Monitor Respiratory Rate (12-18) 13 18 16 Respiratory rate source Observation Observation Observation Blood Pressure (90/60-120/80) 76/49 L 117/54 L 131/67 H Blood Pressure Mean (mm Hg) 58 75 88 Source Monitor Monitor Monitor Position Sitting Sitting Sitting Blood Pressure Location Right Arm Right Forearm Right Forearm History Since Last Visit- (Skip if this is Patient's initial visit) Have you changed medications since your No No Yes last visit? Any new allergies or adverse reactions No No No Had a fall/change in ADL's that may No No No increase risk of falls Signs or symptoms of abuse and/or No No No neglect since last visit Have you been in the hospital since your No No No last visit? Has dressing in place as prescribed Yes Yes Yes Has compression in place as prescribed N/A Yes Yes Has offloadiing in place as prescribed N/A Yes Yes Experienced any changes in pain level or No No No management Left Footwear Surgical Shoe Slipper with pressure relief insole Right Footwear Regular Shoe Slipper Pain Scale: 0-10 Numeric Is Patient Pain Free? Yes Yes Yes WC - Nurse 1 - General Ulcer Measurement Start: 02/18/25 09:55 Freq: Status: Active Protocol: Activity Type Activity Date Activity User E-sign Co-sign Detail Recorded Client Recorded Date Recorded By Document 02/18/25 09:55 KW [id number] 02/18/25 10:09 KW Document 02/25/25 09:56 JF [id number] 02/25/25 10:10 JF Document 03/04/25 09:59 JF [id number] 03/04/25 10:13 JF 02/18/25 02/25/25 03/04/25 09:55 09:56 09:59 Wound Center Nurse 1 5. left FA -Wound Comment(s) did not adress today in nurse one #2 L Heel -Combined with other wound No No -Current Size (cm) - Length 4.9 4.5 4.7 -Current Size (cm) - Width 4 3.3 3.8 -Current Size (cm) - Depth 0.2 0.2 0.2 -Total Square Cm 19.6 14.85 17.86 -Date of Last Picture (Recall this 02/18/25 field) -Photo Taken Yes Yes -Epithelialization Small 1-33% Medium 34-66% -Tunneling No No -Undermining/Tunneling No No -Circular Undermining No No -Exudate Amt Large Medium Small -Exudate Type Serosanguineous Serosanguineous Serosanguineous -Wound Margin Distinct, Flat & Intact Flat & Intact Outline Attached -Granulation Amt Large (67-100%) Medium (34-66%) Medium (34-66%) -Granulation Quality Birdsong,Red Birdsong Birdsong -Slough/Fibrin Yes Yes -Necrosis Amt Medium (34-66%) Medium (34-66%) -Necrotic Tissue Type Adherent Slough Adherent Slough -Structure Exposed N/A N/A -Texture (Andreea-wound Skin Appearance) Assessed No Abnormality, Assessed Assessed -Moisture (Andreea-wound Skin Appearance) Assessed, Assessed, Assessed,Dry/ Maceration Weeping Scaly -Color (Andreea-wound Skin Appearance) Assessed Assessed Assessed -Temperature (Andreea-wound Skin No Abnormality No Abnormality No Abnormality Appearance) (Pt Warm) (Pt Warm) (Pt Warm) -Tenderness on Palpation (Andreea-wound No No No Skin Appearance) -Ulcer Cleansing Soap and Water Soap and Water Soap and Water -Foul Odor after Cleansing No No -Anesthetic Used 5% Lidocaine 5% Lidocaine 5% Lidocaine Gel Gel Gel #1 Sacral Cluster -Combined with other wound No No -Current Size (cm) - Length 3 2.4 2.2 -Current Size (cm) - Width 2 0.4 1.0 -Current Size (cm) - Depth 2 2.8 4.2 -Total Square Cm 6 0.96 2.20 -Date of Last Picture (Recall this 02/18/25 field) -Photo Taken Yes Yes -Epithelialization None Present Medium 34-66% -Tunneling No No -Undermining/Tunneling No No -Circular Undermining No No -Exudate Amt Large Large Large -Exudate Type Serosanguineous Serosanguineous Serosanguineous -Wound Margin Distinct, Flat & Intact Flat & Intact Outline Attached -Granulation Amt Large (67-100%) Large (67-100%) Large (67-100%) -Granulation Quality Birdsong,Red Red Red -Slough/Fibrin Yes Yes -Necrosis Amt Small (1-33%) Small (1-33%) Small (1-33%) -Necrotic Tissue Type Adherent Slough Adherent Slough Adherent Slough -Structure Exposed Muscle,N/A N/A -Texture (Andreea-wound Skin Appearance) Assessed Assessed, Assessed Excoriation -Moisture (Andreea-wound Skin Appearance) Assessed, Assessed, Assessed,Dry/ Maceration Maceration Scaly -Color (Andreea-wound Skin Appearance) Assessed Assessed Assessed -Temperature (Andreea-wound Skin No Abnormality No Abnormality Appearance) (Pt Warm) (Pt Warm) -Tenderness on Palpation (Andreea-wound No No No Skin Appearance) -Ulcer Cleansing Soap and Water Soap and Water Soap and Water -Foul Odor after Cleansing No No No -Anesthetic Used 4% Lidocaine 5% Lidocaine 5% Lidocaine Solution Gel Gel Lower Limb Edema Present No NA Left Calf (cm) 40 Left Ankle (cm) 23 WC - Nurse 2 - General Ulcer CM Notes Start: 02/18/25 09:55 Freq: Status: Active Protocol: Activity Type Activity Date Activity User E-sign Co-sign Detail Recorded Client Recorded Date Recorded By Document 02/18/25 10:12 BMF [id number] 02/18/25 10:26 BMF Edit Result 02/18/25 10:12 BMF (1) [id number] 02/18/25 11:24 BMF Edit Result 02/18/25 10:12 BMF (2) [id number] 02/18/25 13:26 BMF Document 02/25/25 10:22 BMF [id number] 02/25/25 10:31 BMF Edit Result 02/25/25 10:22 BMF (3) [id number] 02/25/25 13:38 BMF Document 03/04/25 10:52 BMF [id number] 03/04/25 11:04 BMF (1) #2 L Heel - Dermabond => 2 (2) 5. left FA - Time => 10:12 - Procedure Performed => No - Bleeding Controlled with => NA - Wound Comment(s) => PT WILL BE HAVING SURGERY W/ SISKA FOR THIS #2 L Heel - Bioengineered Tissue => Yes (3) #1 Sacral Cluster - Post Debridement (cm) - Length => 2.4 - Post Debridement (cm) - Width => 0.4 - Post Debridement (cm) - Depth => 2.8 - Total Square (Post) (cm) => 0.96 - Area of Debridement (cm) - Length => 2.4 - Area of Debridement (cm) - Width => 0.4 - Total Square (Area) (cm) => 0.96 - Wound/Ulcer Outcome => Not Healed - Bleeding Controlled with => NA 02/18/25 02/25/25 03/04/25 10:12 10:22 10:52 Wound Center Nurse 2 5. left FA -Time 10:12 -Procedure Performed No -Bleeding Controlled with NA -Wound Comment(s) PT WILL BE HAVING SURGERY W/ SISKA FOR THIS #2 L Heel -Time 10:22 10:23 10:53 -Correct Patient Yes Yes Yes -Correct Side, Site, Position Yes Yes Yes -Correct Procedure Yes Yes Yes -Procedure Performed Yes Yes Yes -Type of Procedure Debridement Debridement Debridement -Clinical Debridement Subcutaneous Subcutaneous Subcutaneous -Tissue Removed Subcutaneous Subcutaneous Subcutaneous -Post Debridement (cm) - Length 4.5 4.5 3 -Post Debridement (cm) - Width 3 3.5 4.5 -Post Debridement (cm) - Depth 0.1 0.1 0.1 -Total Square (Post) (cm) 13.5 15.75 13.5 -Area of Debridement (cm) - Length 4.5 4.5 3 -Area of Debridement (cm) - Width 3 3.5 4.5 -Total Square (Area) (cm) 13.5 15.75 13.5 -Tunneling No No No -Undermining/Tunneling No No No -Circular Undermining No No No -Wound/Ulcer Outcome Not Healed Not Healed Not Healed -Ulcer Cleansing Rinsed/ Rinsed/ Rinsed/ Irrigated with Irrigated with Irrigated with Saline Saline Saline -Foul Odor after Cleansing No No No -Bioengineered Tissue Yes No Yes -Type of Bioengineered Tissue Theraskin Theraskin Theraskin -Expiration Date 05/14/29 03/28/27 11/19/27 -Product Lot Number [id number] -Percent Used 100 100 100 -Lot number of Saline Used [id number] -Injectable Lidocaine w/ Epi (%) 1 -Injectable Lidocaine w/ Epi (mls) 10 -Bleeding Controlled with Pressure Silver Nitrate Pressure ($) -Treatment Response Procedure Procedure Procedure Tolerated Well Tolerated Well Tolerated Well -Debridement - Subq, 1st 20sq cm No No No -Apply Skin Sub - 1st 25 sq cm - Feet 1 1 1 -Apply Skin Sub - each addt'l 25 sq cm 1 1 - Feet -Dermabond 2 -Theraskin - 26TS (26 SQ CM) 26 26 26 Application 1-4 (per sq cm) #1 Sacral Cluster -Time 10:17 10:28 10:54 -Correct Patient Yes -Correct Side, Site, Position Yes -Correct Procedure Yes -Procedure Performed No No Yes -Type of Procedure Debridement -Clinical Debridement Muscle / Fascia -Tissue Removed Muscle,Fascia -Post Debridement (cm) - Length 3.5 2.4 2 -Post Debridement (cm) - Width 3.5 0.4 1.5 -Post Debridement (cm) - Depth 1 2.8 -Total Square (Post) (cm) 12.25 0.96 3.0 -Area of Debridement (cm) - Length 3.5 2.4 2 -Area of Debridement (cm) - Width 3.5 0.4 1.5 -Total Square (Area) (cm) 12.25 0.96 3.0 -Tunneling No Yes -Tunneling Distance (cm) 1 -Undermining/Tunneling No No -Circular Undermining No No -Wound/Ulcer Outcome Not Healed Not Healed Not Healed -Ulcer Cleansing Rinsed/ Irrigated with Saline -Foul Odor after Cleansing No -Bioengineered Tissue No -Bleeding Controlled with NA NA Pressure -Treatment Response Procedure Tolerated Well -Debridement - Muscle / Fascia, 1st Yes 20sq cm Pain Scale: 0-10 Numeric Is Patient Pain Free? Yes Yes Yes WC - Nurse 3 - General Ulcer D/C NN Start: 02/18/25 09:55 Freq: Status: Active Protocol: Activity Type Activity Date Activity User E-sign Co-sign Detail Recorded Client Recorded Date Recorded By Document 02/18/25 10:31 KW [id number] 02/18/25 10:37 KW Document 02/25/25 11:04 DL [id number] 02/25/25 11:09 DL Document 03/04/25 11:20 JF [id number] 03/04/25 11:22 JF 02/18/25 02/25/25 03/04/25 10:31 11:04 11:20 Wound Care Center Nurse 3 5. left FA -Primary Dressing Applied Silicone Border Foam 4x4 -Silicone Border Foam 4x4 1 -Wound Comment(s) pad and protect #2 L Heel -Ulcer Cleansing Not Cleansed Rinsed/ Irrigated with Saline -Foul Odor after Cleansing No -Other Dressing Threraskin abd pad/kerlix -Primary Dressing Covered/Secured with Dry Gauze & Dry Gauze & Dry Gauze & Roll Gauze, Roll Gauze, Roll Gauze Secured with Secured with Tape Tape -Other Covering Nurse Hat #1 Sacral Cluster -Ulcer Cleansing Dakins Rinsed/ Irrigated with Saline -Foul Odor after Cleansing No Yes -Negative Pressure Wound Therapy Continue Continue Continue -Pieces of Black Foam Inserted 1 1 1 -NPWT Application Charge NPWT </= 50 sq NPWT > 50 sq cm NPWT & cm ($) ($) Debridement (nc ) -Setting (mmHg) 125 125 125 -Negative Pressure is Continuous Continuous Continuous -Wound Comment(s) Rinse with dakins prior to vac change. No Debridement today. LLE -Tubular Bandage Double Layer -Size of Tubigrip Used Size F -Size F ($) 2 -Other double F d/t use patient's being out of E tubigrip Pain Scale: 0-10 Numeric Is Patient Pain Free? 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: CODE(S): C44.629 - Squamous cell carcinoma of skin of left upper limb, including shoulder PLAN: Reviewed pathology Completely excised on 27 Feb 2025 (margins free of residual squamous cell carcinoma) (2) Stage 4 decubitus ulcer: CODE(S): L89.94 - Pressure ulcer of unspecified site, stage 4 QUALIFIERS: Pressure injury location: sacral region Qualified Code(s): L89.154 - Pressure ulcer of sacral region, stage 4 PLAN: Now stage III with granulation over the bone Continue wound VAC 3 times per week (3) Diabetic foot ulcer: CODE(S): E11.621 - Type 2 diabetes mellitus with foot ulcer; L97.509 - Non-pressure chronic ulcer of other part of unspecified foot with unspecified severity (4) Pressure ulcer of left heel, stage 3: CODE(S): L89.623 - Pressure ulcer of left heel, stage 3 PLAN: I talked to the patient that the risks, benefits, and alternatives to reconstruction with dermal substitute and eventual skin grafting. He is not interested in skin grafting and would like to try a skin substitute such as there is skin first. Will continue TheraSkin. Vascular surgery was consulted. Noncompressible arterial vessels at the ankles, but waveforms were reassuring. Given history of diabetes and arterial insufficiency, however, they have ordered a CTA with runoff to evaluate for focal stenosis. He will follow-up with vascular. Otherwise we will continue to treat with skin substitute (Theraskin) TheraSkin was placed today Procedure details: The wound was cleaned and debrided with a 7 mm curette removing biofilm and debris. A 26 cm? TheraSkin was applied and trimmed to fit. The wound measured 3 x 4.5 cm. The TheraSkin was applied and Dermabond was used to keep it place on the skin edges. A wound veil was then applied with Steri-Strips and an ABD and tape Patient is will change the ABD and tape daily. Follow-up in 1 week for another treatment. They are happy with the plan
--- NOTE | 2025-03-05 12:56 | WC ---
SACRUM 03/04/25
--- NOTE | 2025-03-05 12:57 | WC ---
L HEEL 03/04/25
--- NOTE | 2025-03-05 12:57 | WC ---
LFA 03/04/25
[2025-03-14 13:42] VITALS: BP 120/79; PULSE 81; RESP 18; TEMP 36.3; BMI 31.6
--- NOTE | 2025-03-15 09:17 | PN.PCM_ITS ---
History of Present Illness Date of Service: 03/14/25 Chief Complaint: Follow-up on buttocks right and left heel wounds that have been going on for months. History of Wound: Chief Complaint: Follow-up on buttocks right and left heel wounds that have been going on for months. 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 He has not walked in several years. He is able to stand up to perform transfers, but does not move his ankle joints. He lays on his chair most of the day. And has developed a sacral wound that he has been following at the wound care center for as well as a left calcaneal wound in the setting of a recent hospitalization this past year, both of which he has been following here at the wound center with various advanced practice providers. Wound culture of left heel ulcer from 08/08/24 positive for MDRO Pseudomonas aeruginosa. Referral to infectious disease for treatment s/p antibiotic regimen. MRI of Pelvis 08/16/24 - Sacral decubitus ulcer with sacrococcygeal osteomyelitis. Treated by infectious disease with long-term course of IV antibiotics. Progress of Wound: The sacral ulcer with bone palpable but covered with granulation tissue and is beefy pink. There is undermining present, which is stable. The perineal ulcer (skin tear proximal to sacral ulcer) remains healed. Left medial heel appears improved with pink ulcer bed and much less non viable tissue present. He is sleeping on the low air loss mattress. 10 December 2024: Patient reports that he has not had any vascular workup for the lower extremity. He has a history of a DVT in the left lower extremity in the remote history and remains on Eliquis for anticoagulation. He reports episodic swelling in the left lower extremity that appears to be worsening the condition of the wound. He is not having any shortness of breath. He is not having any systemic signs or symptoms of infection. 17 December 2024: Doing well with wound care (VAC dressings) which started this past Tuesday. They have an appointment for ABIs and US for evaluation of the lower extremity. He has not gotten his xray of the foot yet, but is planning to get that soon (discussed). Labs obtained 14 Dec 2024 A1C 6.7 Prealb 27 Alb 3.4 Subjective Subjective 07 January 2025: Imaging reviewed. No osteomyelitis on the xray of the foot. There were no DVT on venous study. Arterial study demonstrated noncompressible vessels 2/2 to significant calcific ations of the vasculature Patient has been doing well overall, however. Tolerating dressing changes. 21 January 2025: Doing well overall with dressing changes except there is been an odor coming from the sacral wound after the VAC changes, his would like us to look today. Patient has seen Dr. Farooq (heart doctor) this past week on 19 January 2025 and he discontinued his amiodarone and his blood thinner (patient has been regular with rate and rhythm). He has been off the blood thinner for greater than 48 hours now. Patient also has a follow-up of his ABIs with vascular surgery on 23 January 2025 (2 days from now) To assess need for intervention for increased blood flow to the foot wound. There is another area of concern in the left forearm today that the patient and his would like me to biopsy. It has been there for several months and growing. It is a scaly/scabby lesion on the left proximal dorsal forearm. Biopsy results (from biopsy on 07 January 2025) of the heel wound did not demonstrate any signs of malignancy. 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 This was discussed with the patient and his . Patient doing well overall and is tolerating the TheraSkin applications to the heel. Wound VAC dressing changes are going well as well 18 Feb 2025: Doing well overall. Tolerating theraskin. On the scheduled for excision of the SSC of the left forearm next week. 27 Feb 2025: Tolerating TheraSkin. No fevers chills. All questions answered about once his excision procedure for left forearm squamous cell carcinoma. Patient has been seeing his oncologist and has been getting infusions to increase his white blood cell counts and promote healing. 04 Mar 2025: Reviewed pathology with the patient and his at today's visit from the left forearm squamous cell carcinoma excision. It was negative for malignancy, margins were free from carcinoma. Patient tolerated the procedure well and is feeling well. No pain. No numbness in the forearm. No drainage or fevers chills. Patient here for the foot wound and the sacral wound is well. Reports excellent VAC changes and tolerance of the TheraSkin. Current encounter, 14 Mar 2025: Doing well overall. No appointment this past Tuesday secondary to and TheraSkin fell off from the heal on its own yesterday. There is notes there is scan ordered for today and it will be replaced on this coming Tuesday. Objective Data Objective Data Vital Signs: Vital Signs Temp Pulse Resp BP 97.4 F L 81 18 120/79 03/14/25 13:42 03/14/25 13:42 03/14/25 13:42 03/14/25 13:42 Weight: 220 lb 0.271 oz Body Mass Index (BMI) 31.6 Charges/Coding Procedures Integumentary 111xxx-113xx: [id number] Ginette subq tissue 20 sq cm/< Physical Exam Narrative Sacral wound 2 x 1.5 cm and 1 cm deep, tunneling 1 cm at the 9:00, 12:00, and 3:00 positions. no exposed bone there is granulation over the bone. Periwound clean without any signs of induration. No fluid collections. Granulation tissue present. No signs of infection. Heel wound is 3 x 4. 2 5 cm and seems to be healing from the outside and. Beefy red-pink granulation tissue at the base of the wound. Motor: 4 out of 5 hip flexion and extension bilaterally, 4 out of 5 knee flexion and extension bilaterally, 0 out of 5 foot plantarflexion and dorsiflexion. Sensation: No sensation to light touch on the feet. Consistent with peripheral neuropathy. Vascular: No palpable pulses but the feet are warm bilaterally. Lymph Lymphatic: no lymphadenopathy noted Lymphatic Narrative: No left axillary or left antecubital lymphadenopathy Cardio regular rate and regular rhythm Extremity Extremity Narrative: Left upper extremity Incision is clean dry and intact with Prineo tape in place. No signs of infection Skin Skin Narrative: Left forearm Prineo tape removed. Incision is clean dry and intact and has healed nicely. No signs of recurrence of the squamous cell carcinoma. No healing issues Debridement Note Debridement Note Wound debrided: Left heel wound Laterality: Left Wound Grade/Stage: Stage III Type of Debridement: Excisional debridement Anesthesia Used: 4% Lidocaine Solution and - (10 cc of 1% lidocaine with 1- 200,000 epinephrine for topical anesthesia) Depth: in the subcutaneous layer Percentage of wound debrided: 100 Instrument Used: 7mm curette Tissue Removed: Necrotic fibrinous exudate and fat along the subcutaneous layer Severity: Fat Layer Exposed Amount of bleeding with debridement: Moderate Bleeding Controlled with: Compression and gauze and - (Epinephrine from the above-noted local anesthesia) Patient tolerated procedure: Patient tolerated procedure well Post-Debridement Measurements and Additional Note: Post-Debridement Measurements/Treatment WC - Nurse 1 - General Ulcer Assessment Start: 02/18/25 09:55 Freq: Status: Active Protocol: .LOWEXRomel Activity Type Activity Date Activity User E-sign Co-sign Detail Recorded Client Recorded Date Recorded By Document 02/18/25 09:55 KW [id number] 02/18/25 10:09 KW Document 02/25/25 09:56 JF [id number] 02/25/25 10:10 JF Document 03/04/25 09:59 JF [id number] 03/04/25 10:13 JF Document 03/14/25 13:42 DL [id number] 03/14/25 13:56 DL 02/18/25 02/25/25 03/04/25 09:55 09:56 09:59 - Today's Visit Information Type of service Follow-up Visit Follow-up Visit Follow-up Visit (Physician/REEL TENDER (Physician/REEL TENDER (Physician/REEL TENDER ) ) ) Arrival Mode Wheelchair Wheelchair Wheelchair Transfer Assistance Manual Manual Manual Transfer Assist (Other) Accompanied by Patient Identification Verified (Name & Yes Yes Yes ) Patient Requires Transmission-Based No No No Precautions Height and Weight Body Mass Index (BMI) 31.6 31.6 31.6 BMI Classification Obese Obese Obese Vital Signs Temperature (97.8 F-99.1 F) 96.0 F L 96.6 F L 96.2 F L Temperature Source Temporal Temporal Temporal Pulse Rate (60-100) 73 72 71 Pulse Location Monitor Monitor Monitor Respiratory Rate (12-18) 13 18 16 Respiratory rate source Observation Observation Observation Blood Pressure (90/60-120/80) 76/49 L 117/54 L 131/67 H Blood Pressure Mean (mm Hg) 58 75 88 Source Monitor Monitor Monitor Position Sitting Sitting Sitting Blood Pressure Location Right Arm Right Forearm Right Forearm History Since Last Visit- (Skip if this is Patient's initial visit) Have you changed medications since your No No Yes last visit? Any new allergies or adverse reactions No No No Had a fall/change in ADL's that may No No No increase risk of falls Signs or symptoms of abuse and/or No No No neglect since last visit Have you been in the hospital since your No No No last visit? Has dressing in place as prescribed Yes Yes Yes Has compression in place as prescribed N/A Yes Yes Has offloadiing in place as prescribed N/A Yes Yes Experienced any changes in pain level or No No No management Left Footwear Surgical Shoe Slipper with pressure relief insole Right Footwear Regular Shoe Slipper Pain Scale: 0-10 Numeric Is Patient Pain Free? Yes Yes Yes 03/14/25 13:42 WC - Today's Visit Information Type of service Follow-up Visit (Physician/REEL TENDER ) Arrival Mode Wheelchair Transfer Assistance Manual Transfer Assist (Other) x1 Accompanied by Patient Identification Verified (Name & Yes ) Patient Requires Transmission-Based No Precautions Height and Weight Body Mass Index (BMI) 31.6 BMI Classification Obese Vital Signs Temperature (97.8 F-99.1 F) 97.4 F L Temperature Source Temporal Pulse Rate (60-100) 81 Pulse Location Monitor Respiratory Rate (12-18) 18 Respiratory rate source Observation Blood Pressure (90/60-120/80) 120/79 Blood Pressure Mean (mm Hg) 92 Source Monitor Position Blood Pressure Location History Since Last Visit- (Skip if this is Patient's initial visit) Have you changed medications since your No last visit? Any new allergies or adverse reactions No Had a fall/change in ADL's that may No increase risk of falls Signs or symptoms of abuse and/or No neglect since last visit Have you been in the hospital since your No last visit? Has dressing in place as prescribed Yes Has compression in place as prescribed Has offloadiing in place as prescribed Experienced any changes in pain level or management Left Footwear Right Footwear Pain Scale: 0-10 Numeric Is Patient Pain Free? Yes - Nurse 1 - General Ulcer Measurement Start: 02/18/25 09:55 Freq: Status: Active Protocol: Activity Type Activity Date Activity User E-sign Co-sign Detail Recorded Client Recorded Date Recorded By Document 02/18/25 09:55 KW [id number] 02/18/25 10:09 KW Document 02/25/25 09:56 JF [id number] 02/25/25 10:10 JF Document 03/04/25 09:59 JF [id number] 03/04/25 10:13 JF Document 03/14/25 13:42 DL [id number] 03/14/25 13:56 DL 02/18/25 02/25/25 03/04/25 09:55 09:56 09:59 Wound Center Nurse 1 5. left FA -Wound Comment(s) did not adress today in nurse one #2 L Heel -Combined with other wound No No -Current Size (cm) - Length 4.9 4.5 4.7 -Current Size (cm) - Width 4 3.3 3.8 -Current Size (cm) - Depth 0.2 0.2 0.2 -Total Square Cm 19.6 14.85 17.86 -Date of Last Picture (Recall this 02/18/25 field) -Photo Taken Yes Yes -Epithelialization Small 1-33% Medium 34-66% -Tunneling No No -Undermining/Tunneling No No -Circular Undermining No No -Exudate Amt Large Medium Small -Exudate Type Serosanguineous Serosanguineous Serosanguineous -Wound Margin Distinct, Flat & Intact Flat & Intact Outline Attached -Granulation Amt Large (67-100%) Medium (34-66%) Medium (34-66%) -Granulation Quality [place],Red [place] -Slough/Fibrin Yes Yes -Necrosis Amt Medium (34-66%) Medium (34-66%) -Necrotic Tissue Type Adherent Slough Adherent Slough -Structure Exposed N/A N/A -Texture (Andreea-wound Skin Appearance) Assessed No Abnormality, Assessed Assessed -Moisture (Andreea-wound Skin Appearance) Assessed, Assessed, Assessed,Dry/ Maceration Weeping Scaly -Color (Andreea-wound Skin Appearance) Assessed Assessed Assessed -Temperature (Andreea-wound Skin No Abnormality No Abnormality No Abnormality Appearance) (Pt Warm) (Pt Warm) (Pt Warm) -Tenderness on Palpation (Andreea-wound No No No Skin Appearance) -Ulcer Cleansing Soap and Water Soap and Water Soap and Water -Foul Odor after Cleansing No No -Anesthetic Used 5% Lidocaine 5% Lidocaine 5% Lidocaine Gel Gel Gel #1 Sacral Cluster -Combined with other wound No No -Current Size (cm) - Length 3 2.4 2.2 -Current Size (cm) - Width 2 0.4 1.0 -Current Size (cm) - Depth 2 2.8 4.2 -Total Square Cm 6 0.96 2.20 -Date of Last Picture (Recall this 02/18/25 field) -Photo Taken Yes Yes -Epithelialization None Present Medium 34-66% -Tunneling No No -Undermining/Tunneling No No -Circular Undermining No No -Exudate Amt Large Large Large -Exudate Type Serosanguineous Serosanguineous Serosanguineous -Wound Margin Distinct, Flat & Intact Flat & Intact Outline Attached -Granulation Amt Large (67-100%) Large (67-100%) Large (67-100%) -Granulation Quality [place],Red Red Red -Slough/Fibrin Yes Yes -Necrosis Amt Small (1-33%) Small (1-33%) Small (1-33%) -Necrotic Tissue Type Adherent Slough Adherent Slough Adherent Slough -Structure Exposed Muscle,N/A N/A -Texture (Andreea-wound Skin Appearance) Assessed Assessed, Assessed Excoriation -Moisture (Andreea-wound Skin Appearance) Assessed, Assessed, Assessed,Dry/ Maceration Maceration Scaly -Color (Andreea-wound Skin Appearance) Assessed Assessed Assessed -Temperature (Andreea-wound Skin No Abnormality No Abnormality Appearance) (Pt Warm) (Pt Warm) -Tenderness on Palpation (Andreea-wound No No No Skin Appearance) -Ulcer Cleansing Soap and Water Soap and Water Soap and Water -Foul Odor after Cleansing No No No -Anesthetic Used 4% Lidocaine 5% Lidocaine 5% Lidocaine Solution Gel Gel Lower Limb Edema Present No NA Left Calf (cm) 40 Left Ankle (cm) 23 03/14/25 13:42 Wound Center Nurse 1 5. left FA -Wound Comment(s) #2 L Heel -Combined with other wound -Current Size (cm) - Length 4.8 -Current Size (cm) - Width 2.8 -Current Size (cm) - Depth 0.2 -Total Square Cm 13.44 -Date of Last Picture (Recall this field) -Photo Taken Yes -Epithelialization -Tunneling -Undermining/Tunneling -Circular Undermining -Exudate Amt Medium -Exudate Type Serosanguineous -Wound Margin Distinct, Outline Attached -Granulation Amt Medium (34-66%) -Granulation Quality [place] -Slough/Fibrin -Necrosis Amt Medium (34-66%) -Necrotic Tissue Type Adherent Slough -Structure Exposed N/A -Texture (Andreea-wound Skin Appearance) Scarring -Moisture (Andreea-wound Skin Appearance) No Abnormality -Color (Andreea-wound Skin Appearance) No Abnormality -Temperature (Andreea-wound Skin No Abnormality Appearance) (Pt Warm) -Tenderness on Palpation (Andreea-wound No Skin Appearance) -Ulcer Cleansing Soap and Water -Foul Odor after Cleansing No -Anesthetic Used 5% Lidocaine Gel #1 Sacral Cluster -Combined with other wound -Current Size (cm) - Length 2.3 -Current Size (cm) - Width 1 -Current Size (cm) - Depth 2.8 -Total Square Cm 2.3 -Date of Last Picture (Recall this field) -Photo Taken Yes -Epithelialization -Tunneling -Undermining/Tunneling -Circular Undermining -Exudate Amt Medium -Exudate Type Serosanguineous -Wound Margin Distinct, Outline Attached -Granulation Amt Large (67-100%) -Granulation Quality Red -Slough/Fibrin -Necrosis Amt None Present (0 %) -Necrotic Tissue Type -Structure Exposed N/A -Texture (Andreea-wound Skin Appearance) Scarring -Moisture (Andreea-wound Skin Appearance) No Abnormality -Color (Andreea-wound Skin Appearance) No Abnormality -Temperature (Andreea-wound Skin No Abnormality Appearance) (Pt Warm) -Tenderness on Palpation (Andreea-wound No Skin Appearance) -Ulcer Cleansing Soap and Water -Foul Odor after Cleansing No -Anesthetic Used 5% Lidocaine Gel Lower Limb Edema Present Left Calf (cm) Left Ankle (cm) WC - Nurse 2 - General Ulcer CM Notes Start: 02/18/25 09:55 Freq: Status: Active Protocol: Activity Type Activity Date Activity User E-sign Co-sign Detail Recorded Client Recorded Date Recorded By Document 02/18/25 10:12 BMF [id number] 02/18/25 10:26 BMF Edit Result 02/18/25 10:12 BMF (1) [id number] 02/18/25 11:24 BMF Edit Result 02/18/25 10:12 BMF (2) [id number] 02/18/25 13:26 BMF Document 02/25/25 10:22 BMF [id number] 02/25/25 10:31 BMF Edit Result 02/25/25 10:22 BMF (3) [id number] 02/25/25 13:38 BMF Document 03/04/25 10:52 BM [id number] 03/04/25 11:04 BMF Document 03/14/25 14:01 DS [id number] 03/14/25 14:03 DS Edit Result 03/14/25 14:01 DS (4) [id number] 03/14/25 14:10 DS (1) #2 L Heel - Dermabond => 2 (2) 5. left FA - Time => 10:12 - Procedure Performed => No - Bleeding Controlled with => NA - Wound Comment(s) => PT WILL BE HAVING SURGERY W/ SISKA FOR THIS #2 L Heel - Bioengineered Tissue => Yes (3) #1 Sacral Cluster - Post Debridement (cm) - Length => 2.4 - Post Debridement (cm) - Width => 0.4 - Post Debridement (cm) - Depth => 2.8 - Total Square (Post) (cm) => 0.96 - Area of Debridement (cm) - Length => 2.4 - Area of Debridement (cm) - Width => 0.4 - Total Square (Area) (cm) => 0.96 - Wound/Ulcer Outcome => Not Healed - Bleeding Controlled with => NA (4) #1 Sacral Cluster - Post Debridement (cm) - Length => 2.0 - Post Debridement (cm) - Width => 1.5 - Post Debridement (cm) - Depth => 0.1 - Total Square (Post) (cm) => 3.00 - Area of Debridement (cm) - Length => 2.0 - Area of Debridement (cm) - Width => 1.5 - Total Square (Area) (cm) => 3.00 02/18/25 02/25/25 03/04/25 10:12 10:22 10:52 Wound Center Nurse 2 5. left FA -Time 10:12 -Procedure Performed No -Bleeding Controlled with NA -Wound Comment(s) PT WILL BE HAVING SURGERY W/ SISKA FOR THIS #2 L Heel -Time 10:22 10:23 10:53 -Correct Patient Yes Yes Yes -Correct Side, Site, Position Yes Yes Yes -Correct Procedure Yes Yes Yes -Procedure Performed Yes Yes Yes -Type of Procedure Debridement Debridement Debridement -Clinical Debridement Subcutaneous Subcutaneous Subcutaneous -Tissue Removed Subcutaneous Subcutaneous Subcutaneous -Post Debridement (cm) - Length 4.5 4.5 3 -Post Debridement (cm) - Width 3 3.5 4.5 -Post Debridement (cm) - Depth 0.1 0.1 0.1 -Total Square (Post) (cm) 13.5 15.75 13.5 -Area of Debridement (cm) - Length 4.5 4.5 3 -Area of Debridement (cm) - Width 3 3.5 4.5 -Total Square (Area) (cm) 13.5 15.75 13.5 -Tunneling No No No -Undermining/Tunneling No No No -Circular Undermining No No No -Wound/Ulcer Outcome Not Healed Not Healed Not Healed -Ulcer Cleansing Rinsed/ Rinsed/ Rinsed/ Irrigated with Irrigated with Irrigated with Saline Saline Saline -Foul Odor after Cleansing No No No -Bioengineered Tissue Yes No Yes -Type of Bioengineered Tissue Theraskin Theraskin Theraskin -Expiration Date 05/14/29 03/28/27 11/19/27 -Product Lot Number [id number] -Percent Used 100 100 100 -Lot number of Saline Used [id number] -Injectable Lidocaine w/ Epi (%) 1 -Injectable Lidocaine w/ Epi (mls) 10 -Bleeding Controlled with Pressure Silver Nitrate Pressure ($) -Treatment Response Procedure Procedure Procedure Tolerated Well Tolerated Well Tolerated Well -Debridement - Subq, 1st 20sq cm No No No -Apply Skin Sub - 1st 25 sq cm - Feet 1 1 1 -Apply Skin Sub - each addt'l 25 sq cm 1 1 - Feet -Dermabond 2 -Theraskin - 26TS (26 SQ CM) 26 26 26 Application 1-4 (per sq cm) #1 Sacral Cluster -Time 10:17 10:28 10:54 -Correct Patient Yes -Correct Side, Site, Position Yes -Correct Procedure Yes -Procedure Performed No No Yes -Type of Procedure Debridement -Clinical Debridement Muscle / Fascia -Tissue Removed Muscle,Fascia -Post Debridement (cm) - Length 3.5 2.4 2 -Post Debridement (cm) - Width 3.5 0.4 1.5 -Post Debridement (cm) - Depth 1 2.8 -Total Square (Post) (cm) 12.25 0.96 3.0 -Area of Debridement (cm) - Length 3.5 2.4 2 -Area of Debridement (cm) - Width 3.5 0.4 1.5 -Total Square (Area) (cm) 12.25 0.96 3.0 -Tunneling No Yes -Tunneling Distance (cm) 1 -Undermining/Tunneling No No -Circular Undermining No No -Wound/Ulcer Outcome Not Healed Not Healed Not Healed -Ulcer Cleansing Rinsed/ Irrigated with Saline -Foul Odor after Cleansing No -Bioengineered Tissue No -Bleeding Controlled with NA NA Pressure -Treatment Response Procedure Tolerated Well -Debridement - Muscle / Fascia, 1st Yes 20sq cm Pain Scale: 0-10 Numeric Is Patient Pain Free? Yes Yes Yes 03/14/25 14:01 Wound Center Nurse 2 5. left FA -Time -Procedure Performed -Bleeding Controlled with -Wound Comment(s) #2 L Heel -Time 14:01 -Correct Patient Yes -Correct Side, Site, Position Yes -Correct Procedure Yes -Procedure Performed Yes -Type of Procedure Debridement -Clinical Debridement Subcutaneous -Tissue Removed Subcutaneous -Post Debridement (cm) - Length 4.2 -Post Debridement (cm) - Width 3.0 -Post Debridement (cm) - Depth 0.1 -Total Square (Post) (cm) 12.60 -Area of Debridement (cm) - Length 4.2 -Area of Debridement (cm) - Width 3.0 -Total Square (Area) (cm) 12.60 -Tunneling No -Undermining/Tunneling No -Circular Undermining No -Wound/Ulcer Outcome Not Healed -Ulcer Cleansing Rinsed/ Irrigated with Saline -Foul Odor after Cleansing No -Bioengineered Tissue No -Type of Bioengineered Tissue -Expiration Date -Product Lot Number -Percent Used -Lot number of Saline Used -Injectable Lidocaine w/ Epi (%) -Injectable Lidocaine w/ Epi (mls) -Bleeding Controlled with Pressure -Treatment Response Procedure Tolerated Well -Debridement - Subq, 1st 20sq cm Yes -Apply Skin Sub - 1st 25 sq cm - Feet -Apply Skin Sub - each addt'l 25 sq cm - Feet -Dermabond -Theraskin - 26TS (26 SQ CM) Application 1-4 (per sq cm) #1 Sacral Cluster -Time 14:02 -Correct Patient Yes -Correct Side, Site, Position Yes -Correct Procedure -Procedure Performed No -Type of Procedure -Clinical Debridement -Tissue Removed -Post Debridement (cm) - Length 2.0 -Post Debridement (cm) - Width 1.5 -Post Debridement (cm) - Depth 0.1 -Total Square (Post) (cm) 3.00 -Area of Debridement (cm) - Length 2.0 -Area of Debridement (cm) - Width 1.5 -Total Square (Area) (cm) 3.00 -Tunneling -Tunneling Distance (cm) -Undermining/Tunneling -Circular Undermining -Wound/Ulcer Outcome Not Healed -Ulcer Cleansing -Foul Odor after Cleansing -Bioengineered Tissue -Bleeding Controlled with -Treatment Response -Debridement - Muscle / Fascia, 1st 20sq cm Pain Scale: 0-10 Numeric Is Patient Pain Free? Yes WC - Nurse 3 - General Ulcer D/C NN Start: 02/18/25 09:55 Freq: Status: Active Protocol: Activity Type Activity Date Activity User E-sign Co-sign Detail Recorded Client Recorded Date Recorded By Document 02/18/25 10:31 KW [id number] 02/18/25 10:37 KW Document 02/25/25 11:04 DL [id number] 02/25/25 11:09 DL Document 03/04/25 11:20 JF [id number] 03/04/25 11:22 JF Document 03/14/25 14:10 DL [id number] 03/14/25 14:14 DL 02/18/25 02/25/25 03/04/25 10:31 11:04 11:20 Wound Care Center Nurse 3 5. left FA -Primary Dressing Applied Silicone Border Foam 4x4 -Silicone Border Foam 4x4 1 -Wound Comment(s) pad and protect #2 L Heel -Ulcer Cleansing Not Cleansed Rinsed/ Irrigated with Saline -Foul Odor after Cleansing No -Primary Dressing Applied -Other Dressing Threraskin abd pad/kerlix -Primary Dressing Covered/Secured with Dry Gauze & Dry Gauze & Dry Gauze & Roll Gauze, Roll Gauze, Roll Gauze Secured with Secured with Tape Tape -Other Covering Nurse Hat #1 Sacral Cluster -Ulcer Cleansing Dakins Rinsed/ Irrigated with Saline -Foul Odor after Cleansing No Yes -Negative Pressure Wound Therapy Continue Continue Continue -Pieces of Black Foam Inserted 1 1 1 -NPWT Application Charge NPWT </= 50 sq NPWT > 50 sq cm NPWT & cm ($) ($) Debridement (nc ) -Setting (mmHg) 125 125 125 -Negative Pressure is Continuous Continuous Continuous -Regranex (If Applicable) -Wound Comment(s) Rinse with dakins prior to vac change. No Debridement today. LLE -Tubular Bandage Double Layer -Size of Tubigrip Used Size F -Size F ($) 2 -Other double F d/t use patient's being out of E tubigrip Treatment Response Pain Scale: 0-10 Numeric Is Patient Pain Free? Yes Yes Yes WC - Visit Discharge Discharge Condition Stable Stable Ambulatory Status Wheelchair Wheelchair Transportation Private Auto Private Auto Accompanied by Medication Reconcilliation completed & No Yes provided to patient/care provider Clinical Summary of Care Provided Yes Yes Facility Type Orders Sent 03/14/25 14:10 [facility] Care Center Nurse 3 5. left FA -Primary Dressing Applied -Silicone Border Foam 4x4 -Wound Comment(s) #2 L Heel -Ulcer Cleansing Rinsed/ Irrigated with Saline -Foul Odor after Cleansing No -Primary Dressing Applied NonAdherent Contact Layer -Other Dressing xeroform -Primary Dressing Covered/Secured with Dry Gauze & Roll Gauze -Other Covering Nurse hat #1 Sacral Cluster -Ulcer Cleansing dakins -Foul Odor after Cleansing -Negative Pressure Wound Therapy -Pieces of Black Foam Inserted -NPWT Application Charge NPWT & Debridement (nc ) -Setting (mmHg) 125 -Negative Pressure is Continuous -Regranex (If Applicable) Continue -Wound Comment(s) Dressing applied per Nicholas Torres today. LLE -Tubular Bandage -Size of Tubigrip Used -Size F ($) -Other own tubigrip Treatment Response Procedure Tolerated Well Pain Scale: 0-10 Numeric Is Patient Pain Free? 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 No debridement today Continue wound VAC 3 times per week (3) Diabetic foot ulcer: CODE(S): E11.621 - Type 2 diabetes mellitus with foot ulcer; L97.509 - Non-pressure chronic ulcer of other part of unspecified foot with unspecified severity (4) Pressure ulcer of left heel, stage 3: CODE(S): L89.623 - Pressure ulcer of left heel, stage 3 PLAN: I talked to the patient that the risks, benefits, and alternatives to reconstruction with dermal substitute and eventual skin grafting. He is not interested in skin grafting and would like to try a skin substitute such as there is skin first. Will continue TheraSkin. Vascular surgery was consulted. Noncompressible arterial vessels at the ankles, but waveforms were reassuring. Given history of diabetes and arterial insufficiency, however, they have ordered a CTA with runoff to evaluate for focal stenosis. I talked to the patient and his about the CTA and they would like to defer this at this time as they have too much going on with their healthcare. TheraSkin placement was deferred today as there was none available Wound was debrided as noted above Plan for twice daily Xeroform changes until Tuesday when we replace the TheraSkin in clinic Continue pressure offloading to the heel Patient is happy with the plan
== END 2025-03-16 23:59 | disposition home or self-care (01) ==
LOC: WC 13:45
PROVIDERS: PCP Family Medicine; Referring Provider Family Medicine; Visit Provider Surgery Plastic and Reconstructive Surgery
DX: L89.154 Pressure ulcer of sacral region, stage 4 (principal); L89.623 Pressure ulcer of left heel, stage 3; L89.153 Pressure ulcer of sacral region, stage 3; E11.621 Type 2 diabetes mellitus with foot ulcer; C91.10 Chronic lymphocytic leukemia of B-cell type not having achieved remission; Z86.718 Personal history of other venous thrombosis and embolism; Z79.2 Long term (current) use of antibiotics; C44.629 Squamous cell carcinoma of skin of left upper limb, including shoulder; M48.061 Spinal stenosis, lumbar region without neurogenic claudication; Z86.19 Personal history of other infectious and parasitic diseases; Z79.01 Long term (current) use of anticoagulants; Z79.899 Other long term (current) drug therapy; I77.1 Stricture of artery
CPT/HCPCS: 11042; 11043; 15275; 15276; 97605; 97606; Q4121

== ENCOUNTER 2025-04-08 10:15 | Outpatient (RCR) | payer MEDICARE, SELFPAY ==
[2025-03-17 00:15] VITALS: BP 120/79; PULSE 81; RESP 18; TEMP 36.3; BMI 31.6
[2025-03-18 09:45] VITALS: BP 116/67; PULSE 77; RESP 14; TEMP 35.9; BMI 31.6
--- NOTE | 2025-03-18 12:24 | PCM.WC.PN ---
History of Present Illness Date of Service: 03/18/25 Chief Complaint: Follow-up on buttocks right and left heel wounds that have been going on for months. History of Wound: Chief Complaint: Follow-up on buttocks right and left heel wounds that have been going on for months. 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 He has not walked in several years. He is able to stand up to perform transfers, but does not move his ankle joints. He lays on his chair most of the day. And has developed a sacral wound that he has been following at the wound care center for as well as a left calcaneal wound in the setting of a recent hospitalization this past year, both of which he has been following here at the wound center with various advanced practice providers. Wound culture of left heel ulcer from 08/08/24 positive for MDRO Pseudomonas aeruginosa. Referral to infectious disease for treatment s/p antibiotic regimen. MRI of Pelvis 08/16/24 - Sacral decubitus ulcer with sacrococcygeal osteomyelitis. Treated by infectious disease with long-term course of IV antibiotics. Progress of Wound: The sacral ulcer with bone palpable but covered with granulation tissue and is beefy pink. There is undermining present, which is stable. The perineal ulcer (skin tear proximal to sacral ulcer) remains healed. Left medial heel appears improved with pink ulcer bed and much less non viable tissue present. He is sleeping on the low air loss mattress. 10 December 2024: Patient reports that he has not had any vascular workup for the lower extremity. He has a history of a DVT in the left lower extremity in the remote history and remains on Eliquis for anticoagulation. He reports episodic swelling in the left lower extremity that appears to be worsening the condition of the wound. He is not having any shortness of breath. He is not having any systemic signs or symptoms of infection. 17 December 2024: Doing well with wound care (VAC dressings) which started this past Tuesday. They have an appointment for ABIs and US for evaluation of the lower extremity. He has not gotten his xray of the foot yet, but is planning to get that soon (discussed). Labs obtained 14 Dec 2024 A1C 6.7 Prealb 27 Alb 3.4 Subjective Subjective 07 January 2025: Imaging reviewed. No osteomyelitis on the xray of the foot. There were no DVT on venous study. Arterial study demonstrated noncompressible vessels 2/2 to significant calcifications of the vasculature Patient has been doing well overall, however. Tolerating dressing changes. 21 January 2025: Doing well overall with dressing changes except there is been an odor coming from the sacral wound after the VAC changes, his would like us to look today. Patient has seen Dr. Farooq (heart doctor) this past week on 19 January 2025 and he discontinued his amiodarone and his blood thinner (patient has been regular with rate and rhythm). He has been off the blood thinner for greater than 48 hours now. Patient also has a follow-up of his ABIs with vascular surgery on 23 January 2025 (2 days from now) To assess need for intervention for increased blood flow to the foot wound. There is another area of concern in the left forearm today that the patient and his would like me to biopsy. It has been there for several months and growing. It is a scaly/scabby lesion on the left proximal dorsal forearm. Biopsy results (from biopsy on 07 January 2025) of the heel wound did not demonstrate any signs of malignancy. 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 This was discussed with the patient and his . Patient doing well overall and is tolerating the TheraSkin applications to the heel. Wound VAC dressing changes are going well as well 18 Feb 2025: Doing well overall. Tolerating theraskin. On the scheduled for excision of the SSC of the left forearm next week. 27 Feb 2025: Tolerating TheraSkin. No fevers chills. All questions answered about once his excision procedure for left forearm squamous cell carcinoma. Patient has been seeing his oncologist and has been getting infusions to increase his white blood cell counts and promote healing. 04 Mar 2025: Reviewed pathology with the patient and his at today's visit from the left forearm squamous cell carcinoma excision. It was negative for malignancy, margins were free from carcinoma. Patient tolerated the procedure well and is feeling well. No pain. No numbness in the forearm. No drainage or fevers chills. Patient here for the foot wound and the sacral wound is well. Reports excellent VAC changes and tolerance of the TheraSkin. 14 Mar 2025: Doing well overall. No appointment this past Tuesday secondary to and TherHyacinthin fell off from the heal on its own yesterday. There is notes there is scan ordered for today and it will be replaced on this coming Tuesday. Current encounter, 18 March 2025: Doing well overall. No significant change since last appoint. Endorses good dressing changes Objective Data Objective Data Vital Signs: Vital Signs Temp Pulse Resp BP 96.6 F L 77 14 116/67 03/18/25 09:45 03/18/25 09:45 03/18/25 09:45 03/18/25 09:45 Weight: 220 lb 0.271 oz Body Mass Index (BMI) 31.6 Charges/Coding Procedures Integumentary 150xxx-152xx: 60108 Skin sub graft face/nk/hf/g Physical Exam Narrative Sacral wound Not examined today. Left lower extremity: Heel wound is 3 x 5 cm and seems to be healing from the outside in. There is beefy red-pink granulation tissue at the base of the wound. Motor: 4 out of 5 hip flexion and extension bilaterally, 4 out of 5 knee flexion and extension bilaterally, 0 out of 5 foot plantarflexion and dorsiflexion. Sensation: No sensation to light touch on the feet. Consistent with peripheral neuropathy. Vascular: No palpable pulses but the feet are warm bilaterally. Lymph Lymphatic: no lymphadenopathy noted Lymphatic Narrative: No left axillary or left antecubital lymphadenopathy Cardio regular rate and regular rhythm Extremity Extremity Narrative: Left upper extremity Incision is clean dry and intact with Prineo tape in place. No signs of infection Skin Skin Narrative: Left forearm Prineo tape removed. Incision is clean dry and intact and has healed nicely. No signs of recurrence of the squamous cell carcinoma. No healing issues Debridement Note Debridement Note No debridement was completed: No debridement was completed today Post-Debridement Measurements and Additional Note: Post-Debridement Measurements/Treatment WC - Nurse 1 - General Ulcer Assessment Start: 03/18/25 09:45 Freq: Status: Active Protocol: CHEL Activity Type Activity Date Activity User E-sign Co-sign Detail Recorded Client Recorded Date Recorded By Document 03/18/25 09:45 ML [id number] 03/18/25 09:52 ML 03/18/25 09:45 - Today's Visit Information Type of service Follow-up Visit (Physician/CIV[employer]IAN [employer]AIL OFFICER ) Arrival Mode Wheelchair Transfer Assistance Manual Patient Identification Verified (Name & Yes ) Patient Requires Transmission-Based No Precautions Height and Weight Body Mass Index (BMI) 31.6 BMI Classification Obese Vital Signs Temperature (97.8 F-99.1 F) 96.6 F L Temperature Source Temporal Pulse Rate (60-100) 77 Pulse Location Monitor Respiratory Rate (12-18) 14 Respiratory rate source Monitor Blood Pressure (90/60-120/80) 116/67 Blood Pressure Mean (mm Hg) 83 Source Monitor Blood Pressure Location Right Forearm History Since Last Visit- (Skip if this is Patient's initial visit) Have you changed medications since your No last visit? Any new allergies or adverse reactions No Had a fall/change in ADL's that may No increase risk of falls Signs or symptoms of abuse and/or No neglect since last visit Have you been in the hospital since your No last visit? Has dressing in place as prescribed Yes Has compression in place as prescribed Yes Has offloadiing in place as prescribed Yes Experienced any changes in pain level or No management Pain Scale: 0-10 Numeric Is Patient Pain Free? Yes WC - Nurse 1 - General Ulcer Measurement Start: 03/18/25 09:45 Freq: Status: Active Protocol: Activity Type Activity Date Activity User E-sign Co-sign Detail Recorded Client Recorded Date Recorded By Document 03/18/25 09:45 ML [id number] 03/18/25 09:52 ML 03/18/25 09:45 Wound Center Nurse 1 #2 L Heel -Current Size (cm) - Length 4.3 -Current Size (cm) - Width 4.8 -Current Size (cm) - Depth 0.1 -Total Square Cm 20.64 -Exudate Amt Medium -Exudate Type Yellow/Green -Wound Margin Distinct, Outline Attached -Granulation Amt Medium (34-66%) -Granulation Quality Red -Slough/Fibrin Yes -Necrosis Amt None Present (0 %) -Necrotic Tissue Type Adherent Slough -Texture (Andreea-wound Skin Appearance) Assessed -Color (Andreea-wound Skin Appearance) Assessed -Temperature (Andreea-wound Skin No Abnormality Appearance) (Pt Warm) -Tenderness on Palpation (Andreea-wound No Skin Appearance) -Ulcer Cleansing Soap and Water -Foul Odor after Cleansing Yes -Anesthetic Used 5% Lidocaine Gel #1 Sacral Cluster -Current Size (cm) - Length 3 -Current Size (cm) - Width 1 -Current Size (cm) - Depth 2.7 -Total Square Cm 3 -Undermining/Tunneling Yes -Undermining/Tunneling Starts (O'clock 6 ) -Undermining/Tunneling Ends (O'clock) 12 -Maximum Distance (cm) 3.5 -Exudate Amt Large -Exudate Type Serosanguineous -Granulation Amt Medium (34-66%) -Necrotic Tissue Type Adherent Slough -Texture (Andreea-wound Skin Appearance) Assessed -Moisture (Andreea-wound Skin Appearance) Maceration -Color (Andreea-wound Skin Appearance) Assessed -Ulcer Cleansing Soap and Water -Foul Odor after Cleansing No -Anesthetic Used 5% Lidocaine Gel Left Calf (cm) 38.2 Left Ankle (cm) 23.5 WC - Nurse 2 - General Ulcer CM Notes Start: 03/18/25 09:45 Freq: Status: Active Protocol: Activity Type Activity Date Activity User E-sign Co-sign Detail Recorded Client Recorded Date Recorded By Document 03/18/25 10:42 DS [id number] 03/18/25 10:45 DS 03/18/25 10:42 Wound Center Nurse 2 #2 L Heel -Time 10:42 -Correct Patient Yes -Correct Side, Site, Position Yes -Correct Procedure Yes -Procedure Performed Yes -Type of Procedure Debridement -Clinical Debridement Subcutaneous -Tissue Removed Subcutaneous -Post Debridement (cm) - Length 5.0 -Post Debridement (cm) - Width 3.0 -Post Debridement (cm) - Depth 0.1 -Total Square (Post) (cm) 15.00 -Area of Debridement (cm) - Length 5.0 -Area of Debridement (cm) - Width 3.0 -Total Square (Area) (cm) 15.00 -Tunneling No -Undermining/Tunneling No -Circular Undermining No -Wound/Ulcer Outcome Not Healed -Ulcer Cleansing Rinsed/ Irrigated with Saline -Foul Odor after Cleansing No -Bioengineered Tissue Yes -Type of Bioengineered Tissue Theraskin -Expiration Date 09/18/29 -Product Lot Number [id number] -Percent Used 100 -Lot number of Saline Used [id number] -Bleeding Controlled with Pressure -Treatment Response Procedure Tolerated Well -Debridement - Subq, 1st 20sq cm Yes -Apply Skin Sub - 1st 25 sq cm - Feet 1 -Dermabond 2 -Theraskin - 26TS (26 SQ CM) 26 Application 1-4 (per sq cm) #1 Sacral Cluster -Time 10:43 -Correct Patient Yes -Correct Side, Site, Position Yes -Procedure Performed No -Wound/Ulcer Outcome Not Healed Pain Scale: 0-10 Numeric Is Patient Pain Free? Yes WC - Nurse 3 - General Ulcer D/C NN Start: 03/18/25 09:45 Freq: Status: Active Protocol: Activity Type Activity Date Activity User E-sign Co-sign Detail Recorded Client Recorded Date Recorded By Document 03/18/25 11:08 KW [id number] 03/18/25 11:10 KW 03/18/25 11:08 Wound Care Center Nurse 3 #2 L Heel -Other Dressing flushed gauze with nurse hat -Primary Dressing Covered/Secured with Dry Gauze & Roll Gauze, Secured with Tape #1 Sacral Cluster -Ulcer Cleansing rinse with dakins -Negative Pressure Wound Therapy Continue -Pieces of Black Foam Inserted 1 -NPWT Application Charge NPWT & Debridement (nc ) -Setting (mmHg) 125 -Negative Pressure is Continuous LLE -Other pt own tubigrip , medium compression Pain Scale: 0-10 Numeric Is Patient Pain Free? 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 No debridement today Continue wound VAC 3 times per week (3) Diabetic foot ulcer: CODE(S): E11.621 - Type 2 diabetes mellitus with foot ulcer; L97.509 - Non-pressure chronic ulcer of other part of unspecified foot with unspecified severity (4) Pressure ulcer of left heel, stage 3: CODE(S): L89.623 - Pressure ulcer of left heel, stage 3 PLAN: I talked to the patient that the risks, benefits, and alternatives to reconstruction with dermal substitute and eventual skin grafting. He is not interested in skin grafting and would like to try a skin substitute such as there is skin first. Will continue TheraSkin. Vascular surgery was consulted. Noncompressible arterial vessels at the ankles, but waveforms were reassuring. Given history of diabetes and arterial insufficiency, however, they have ordered a CTA with runoff to evaluate for focal stenosis. I talked to the patient and his about the CTA and they would like to defer this at this time as they have too much going on with their healthcare. TheraSkin was placed today Procedure details: The wound was cleaned and debrided with a 7 mm curette removing biofilm and debris. A 26 cm? TheraSkin was applied and trimmed to fit. The wound measured 3 x 5 cm. The TheraSkin was applied and Dermabond was used to keep it place on the skin edges. A wound veil (this time with Adaptic) was then applied with Steri-Strips and an ABD and tape Patient is will change the ABD and tape daily. Follow-up in 1 week for another treatment. They are happy with the plan
--- NOTE | 2025-03-25 08:58 | PN.PCM_ITS ---
History of Present Illness Date of Service: 03/25/25 Chief Complaint: Follow-up on buttocks right and left heel wounds that have been going on for months. History of Wound: Chief Complaint: Follow-up on buttocks right and left heel wounds that have been going on for months. 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 He has not walked in several years. He is able to stand up to perform transfers, but does not move his ankle joints. He lays on his chair most of the day. And has developed a sacral wound that he has been following at the wound care center for as well as a left calcaneal wound in the setting of a recent hospitalization this past year, both of which he has been following here at the wound center with various advanced practice providers. Wound culture of left heel ulcer from 08/08/24 positive for MDRO Pseudomonas aeruginosa. Referral to infectious disease for treatment s/p antibiotic regimen. MRI of Pelvis 08/16/24 - Sacral decubitus ulcer with sacrococcygeal osteomyelitis. Treated by infectious disease with long-term course of IV antibiotics. Progress of Wound: The sacral ulcer with bone palpable but covered with granulation tissue and is beefy pink. There is undermining present, which is stable. The perineal ulcer (skin tear proximal to sacral ulcer) remains healed. Left medial heel appears improved with pink ulcer bed and much less non viable tissue present. He is sleeping on the low air loss mattress. 10 December 2024: Patient reports that he has not had any vascular workup for the lower extremity. He has a history of a DVT in the left lower extremity in the remote history and remains on Eliquis for anticoagulation. He reports episodic swelling in the left lower extremity that appears to be worsening the condition of the wound. He is not having any shortness of breath. He is not having any systemic signs or symptoms of infection. 17 December 2024: Doing well with wound care (VAC dressings) which started this past Tuesday. They have an appointment for ABIs and US for evaluation of the lower extremity. He has not gotten his xray of the foot yet, but is planning to get that soon (discussed). Labs obtained 14 Dec 2024 A1C 6.7 Prealb 27 Alb 3.4 Subjective Subjective 07 January 2025: Imaging reviewed. No osteomyelitis on the xray of the foot. There were no DVT on venous study. Arterial study demonstrated noncompressible vessels 2/2 to significant calcific ations of the vasculature Patient has been doing well overall, however. Tolerating dressing changes. 21 January 2025: Doing well overall with dressing changes except there is been an odor coming from the sacral wound after the VAC changes, his would like us to look today. Patient has seen Dr. Farooq (heart doctor) this past week on 19 January 2025 and he discontinued his amiodarone and his blood thinner (patient has been regular with rate and rhythm). He has been off the blood thinner for greater than 48 hours now. Patient also has a follow-up of his ABIs with vascular surgery on 23 January 2025 (2 days from now) To assess need for intervention for increased blood flow to the foot wound. There is another area of concern in the left forearm today that the patient and his would like me to biopsy. It has been there for several months and growing. It is a scaly/scabby lesion on the left proximal dorsal forearm. Biopsy results (from biopsy on 07 January 2025) of the heel wound did not demonstrate any signs of malignancy. 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 This was discussed with the patient and his . Patient doing well overall and is tolerating the TheraSkin applications to the heel. Wound VAC dressing changes are going well as well 18 Feb 2025: Doing well overall. Tolerating theraskin. On the scheduled for excision of the SSC of the left forearm next week. 27 Feb 2025: Tolerating TheraSkin. No fevers chills. All questions answered about once his excision procedure for left forearm squamous cell carcinoma. Patient has been seeing his oncologist and has been getting infusions to increase his white blood cell counts and promote healing. 04 Mar 2025: Reviewed pathology with the patient and his at today's visit from the left forearm squamous cell carcinoma excision. It was negative for malignancy, margins were free from carcinoma. Patient tolerated the procedure well and is feeling well. No pain. No numbness in the forearm. No drainage or fevers chills. Patient here for the foot wound and the sacral wound is well. Reports excellent VAC changes and tolerance of the TheraSkin. 14 Mar 2025: Doing well overall. No appointment this past Tuesday secondary to and TheraSkin fell off from the heal on its own yesterday. There is notes there is scan ordered for today and it will be replaced on this coming Tuesday. 18 March 2025: Doing well overall. No significant change since last appoint. Endorses good dressing changes Current encounter, 25 March 2025: Doing well overall. No big changes. Tolerating TheraSkin treatments and VAC changes. Objective Data Objective Data Vital Signs: Vital Signs Temp Pulse Resp BP 96.6 F L 77 14 116/67 03/18/25 09:45 03/18/25 09:45 03/18/25 09:45 03/18/25 09:45 Weight: 220 lb 0.271 oz Body Mass Index (BMI) 31.6 Charges/Coding Procedures Integumentary 150xxx-152xx: 28184 Skin sub graft face/nk/hf/g Physical Exam Narrative Sacral wound Stage 3, 2 x 2 cm and undermines approximately 3 cm medially and superiorly. No purulence/no exposed bone. Left lower extremity: Heel wound is 4.5 x 2.5 cm and seems to be healing from the outside in. There is beefy red-pink granulation tissue at the base of the wound. Motor: 4 out of 5 hip flexion and extension bilaterally, 4 out of 5 knee flexion and extension bilaterally, 0 out of 5 foot plantarflexion and dorsiflexion. Sensation: No sensation to light touch on the feet. Consistent with peripheral neuropathy. Vascular: No palpable pulses but the feet are warm bilaterally. Lymph Lymphatic: no lymphadenopathy noted Lymphatic Narrative: No left axillary or left antecubital lymphadenopathy Cardio regular rate and regular rhythm Extremity Extremity Narrative: Left upper extremity Incision healed from SSC wide-local excision. Skin Skin Narrative: Left forearm Prineo tape removed. Incision is clean dry and intact and has healed nicely. No signs of recurrence of the squamous cell carcinoma. No healing issues Debridement Note Debridement Note No debridement was completed: No debridement was completed today Post-Debridement Measurements and Additional Note: Post-Debridement Measurements/Treatment SHAYLA - Nurse 1 - General Ulcer Assessment Start: 03/18/25 09:45 Freq: Status: Active Protocol: CHEL Activity Type Activity Date Activity User E-sign Co-sign Detail Recorded Client Recorded Date Recorded By Document 03/18/25 09:45 ML [id number] 03/18/25 09:52 ML 03/18/25 09:45 WC - Today's Visit Information Type of service Follow-up Visit (Physician/RADIATION CONTROL TECHNICIAN ) Arrival Mode Wheelchair Transfer Assistance Manual Patient Identification Verified (Name & Yes ) Patient Requires Transmission-Based No Precautions Height and Weight Body Mass Index (BMI) 31.6 BMI Classification Obese Vital Signs Temperature (97.8 F-99.1 F) 96.6 F L Temperature Source Temporal Pulse Rate (60-100) 77 Pulse Location Monitor Respiratory Rate (12-18) 14 Respiratory rate source Monitor Blood Pressure (90/60-120/80) 116/67 Blood Pressure Mean (mm Hg) 83 Source Monitor Blood Pressure Location Right Forearm History Since Last Visit- (Skip if this is Patient's initial visit) Have you changed medications since your No last visit? Any new allergies or adverse reactions No Had a fall/change in ADL's that may No increase risk of falls Signs or symptoms of abuse and/or No neglect since last visit Have you been in the hospital since your No last visit? Has dressing in place as prescribed Yes Has compression in place as prescribed Yes Has offloadiing in place as prescribed Yes Experienced any changes in pain level or No management Pain Scale: 0-10 Numeric Is Patient Pain Free? Yes WC - Nurse 1 - General Ulcer Measurement Start: 03/18/25 09:45 Freq: Status: Active Protocol: Activity Type Activity Date Activity User E-sign Co-sign Detail Recorded Client Recorded Date Recorded By Document 03/18/25 09:45 ML [id number] 03/18/25 09:52 ML 03/18/25 09:45 Wound Center Nurse 1 #2 L Heel -Current Size (cm) - Length 4.3 -Current Size (cm) - Width 4.8 -Current Size (cm) - Depth 0.1 -Total Square Cm 20.64 -Exudate Amt Medium -Exudate Type Yellow/Green -Wound Margin Distinct, Outline Attached -Granulation Amt Medium (34-66%) -Granulation Quality Red -Slough/Fibrin Yes -Necrosis Amt None Present (0 %) -Necrotic Tissue Type Adherent Slough -Texture (Andreea-wound Skin Appearance) Assessed -Color (Andreea-wound Skin Appearance) Assessed -Temperature (Andreea-wound Skin No Abnormality Appearance) (Pt Warm) -Tenderness on Palpation (Andreea-wound No Skin Appearance) -Ulcer Cleansing Soap and Water -Foul Odor after Cleansing Yes -Anesthetic Used 5% Lidocaine Gel #1 Sacral Cluster -Current Size (cm) - Length 3 -Current Size (cm) - Width 1 -Current Size (cm) - Depth 2.7 -Total Square Cm 3 -Undermining/Tunneling Yes -Undermining/Tunneling Starts (O'clock 6 ) -Undermining/Tunneling Ends (O'clock) 12 -Maximum Distance (cm) 3.5 -Exudate Amt Large -Exudate Type Serosanguineous -Granulation Amt Medium (34-66%) -Necrotic Tissue Type Adherent Slough -Texture (Andreea-wound Skin Appearance) Assessed -Moisture (Andreea-wound Skin Appearance) Maceration -Color (Andreea-wound Skin Appearance) Assessed -Ulcer Cleansing Soap and Water -Foul Odor after Cleansing No -Anesthetic Used 5% Lidocaine Gel Left Calf (cm) 38.2 Left Ankle (cm) 23.5 WC - Nurse 2 - General Ulcer CM Notes Start: 03/18/25 09:45 Freq: Status: Active Protocol: Activity Type Activity Date Activity User E-sign Co-sign Detail Recorded Client Recorded Date Recorded By Document 03/18/25 10:42 DS [id number] 03/18/25 10:45 DS 03/18/25 10:42 Wound Center Nurse 2 #2 L Heel -Time 10:42 -Correct Patient Yes -Correct Side, Site, Position Yes -Correct Procedure Yes -Procedure Performed Yes -Type of Procedure Debridement -Clinical Debridement Subcutaneous -Tissue Removed Subcutaneous -Post Debridement (cm) - Length 5.0 -Post Debridement (cm) - Width 3.0 -Post Debridement (cm) - Depth 0.1 -Total Square (Post) (cm) 15.00 -Area of Debridement (cm) - Length 5.0 -Area of Debridement (cm) - Width 3.0 -Total Square (Area) (cm) 15.00 -Tunneling No -Undermining/Tunneling No -Circular Undermining No -Wound/Ulcer Outcome Not Healed -Ulcer Cleansing Rinsed/ Irrigated with Saline -Foul Odor after Cleansing No -Bioengineered Tissue Yes -Type of Bioengineered Tissue Theraskin -Expiration Date 09/18/29 -Product Lot Number [id number] -Percent Used 100 -Lot number of Saline Used [id number] -Bleeding Controlled with Pressure -Treatment Response Procedure Tolerated Well -Debridement - Subq, 1st 20sq cm Yes -Apply Skin Sub - 1st 25 sq cm - Feet 1 -Dermabond 2 -Theraskin - 26TS (26 SQ CM) 26 Application 1-4 (per sq cm) #1 Sacral Cluster -Time 10:43 -Correct Patient Yes -Correct Side, Site, Position Yes -Procedure Performed No -Wound/Ulcer Outcome Not Healed Pain Scale: 0-10 Numeric Is Patient Pain Free? Yes - Nurse 3 - General Ulcer D/C NN Start: 03/18/25 09:45 Freq: Status: Active Protocol: Activity Type Activity Date Activity User E-sign Co-sign Detail Recorded Client Recorded Date Recorded By Document 03/18/25 11:08 TIM [id number] 03/18/25 11:10 03/18/25 11:08 Wound Care Center Nurse 3 #2 L Heel -Other Dressing flushed gauze with nurse hat -Primary Dressing Covered/Secured with Dry Gauze & Roll Gauze, Secured with Tape #1 Sacral Cluster -Ulcer Cleansing rinse with dakins -Negative Pressure Wound Therapy Continue -Pieces of Black Foam Inserted 1 -NPWT Application Charge NPWT & Debridement (nc ) -Setting (mmHg) 125 -Negative Pressure is Continuous LLE -Other pt own tubigrip , medium compression Pain Scale: 0-10 Numeric Is Patient Pain Free? Yes - Visit Discharge Discharge Condition Stable Transportation Private Auto Medication Reconcilliation completed & No provided to patient/care provider Clinical Summary of Care Provided Yes Notes: uses scooter Assessment/Plan Assessment/Plan (1) Stage 4 decubitus ulcer: CODE(S): L89.94 - Pressure ulcer of unspecified site, stage 4 QUALIFIERS: Pressure injury location: sacral region Qualified Code(s): L89.154 - Pressure ulcer of sacral region, stage 4 PLAN: Now stage III with granulation over the bone. 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 He is not interested in skin grafting and would like to try a skin substitute such as there is skin first. Will continue TheraSkin. Vascular surgery was consulted. Noncompressible arterial vessels at the ankles, but waveforms were reassuring. Given history of diabetes and arterial insufficiency, however, they have ordered a CTA with runoff to evaluate for focal stenosis. I talked to the patient and his about the CTA and they would like to defer this at this time as they have too much going on with their healthcare. TheraSkin was placed today Procedure details: The wound was cleaned and debrided with a 7mm curette removing biofilm and debris. A 26 cm? TheraSkin was applied and trimmed to fit. The wound measured 4.5 x 2.5 cm and 0.1 cm deep. The TheraSkin was applied and Dermabond was used to keep it place on the skin edges. A wound veil (this time with Adaptic) was then applied with Steri-Strips and an ABD and tape Patient is will change the ABD and tape daily. Follow-up in 1 week for another treatment. They are happy with the plan
[2025-03-25 09:45] VITALS: BP 111/76; PULSE 76; RESP 18; TEMP 35.8; BMI 31.6
--- NOTE | 2025-03-26 09:53 | WC ---
PHOTO 03/25/25 LEFT HEEL
--- NOTE | 2025-03-26 09:55 | WC ---
PHOTO 03/25/25 SACRUM
--- NOTE | 2025-03-26 09:56 | WC ---
PHOTO 03/25/25 SACRUM
[2025-04-01 09:52] VITALS: BP 133/75; PULSE 74; RESP 18; TEMP 35.7; BMI 31.6
--- NOTE | 2025-04-01 10:39 | PCM.WC.PN ---
History of Present Illness Date of Service: 04/01/25 Chief Complaint: Follow-up on buttocks right and left heel wounds that have been going on for months. History of Wound: Chief Complaint: Follow-up on buttocks right and left heel wounds that have been going on for months. 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 He has not walked in several years. He is able to stand up to perform transfers, but does not move his ankle joints. He lays on his chair most of the day. And has developed a sacral wound that he has been following at the wound care center for as well as a left calcaneal wound in the setting of a recent hospitalization this past year, both of which he has been following here at the wound center with various advanced practice providers. Wound culture of left heel ulcer from 08/08/24 positive for MDRO Pseudomonas aeruginosa. Referral to infectious disease for treatment s/p antibiotic regimen. MRI of Pelvis 08/16/24 - Sacral decubitus ulcer with sacrococcygeal osteomyelitis. Treated by infectious disease with long-term course of IV antibiotics. Progress of Wound: The sacral ulcer with bone palpable but covered with granulation tissue and is beefy pink. There is undermining present, which is stable. The perineal ulcer (skin tear proximal to sacral ulcer) remains healed. Left medial heel appears improved with pink ulcer bed and much less non viable tissue present. He is sleeping on the low air loss mattress. 10 December 2024: Patient reports that he has not had any vascular workup for the lower extremity. He has a history of a DVT in the left lower extremity in the remote history and remains on Eliquis for anticoagulation. He reports episodic swelling in the left lower extremity that appears to be worsening the condition of the wound. He is not having any shortness of breath. He is not having any systemic signs or symptoms of infection. 17 December 2024: Doing well with wound care (VAC dressings) which started this past Tuesday. They have an appointment for ABIs and US for evaluation of the lower extremity. He has not gotten his xray of the foot yet, but is planning to get that soon (discussed). Labs obtained 14 Dec 2024 A1C 6.7 Prealb 27 Alb 3.4 Subjective Subjective 07 January 2025: Imaging reviewed. No osteomyelitis on the xray of the foot. There were no DVT on venous study. Arterial study demonstrated noncompressible vessels 2/2 to significant calcifications of the vasculature Patient has been doing well overall, however. Tolerating dressing changes. 21 January 2025: Doing well overall with dressing changes except there is been an odor coming from the sacral wound after the VAC changes, his would like us to look today. Patient has seen Dr. Farooq (heart doctor) this past week on 19 January 2025 and he discontinued his amiodarone and his blood thinner (patient has been regular with rate and rhythm). He has been off the blood thinner for greater than 48 hours now. Patient also has a follow-up of his ABIs with vascular surgery on 23 January 2025 (2 days from now) To assess need for intervention for increased blood flow to the foot wound. There is another area of concern in the left forearm today that the patient and his would like me to biopsy. It has been there for several months and growing. It is a scaly/scabby lesion on the left proximal dorsal forearm. Biopsy results (from biopsy on 07 January 2025) of the heel wound did not demonstrate any signs of malignancy. 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 This was discussed with the patient and his . Patient doing well overall and is tolerating the TheraSkin applications to the heel. Wound VAC dressing changes are going well as well 18 Feb 2025: Doing well overall. Tolerating theraskin. On the scheduled for excision of the SSC of the left forearm next week. 27 Feb 2025: Tolerating TheraSkin. No fevers chills. All questions answered about once his excision procedure for left forearm squamous cell carcinoma. Patient has been seeing his oncologist and has been getting infusions to increase his white blood cell counts and promote healing. 04 Mar 2025: Reviewed pathology with the patient and his at today's visit from the left forearm squamous cell carcinoma excision. It was negative for malignancy, margins were free from carcinoma. Patient tolerated the procedure well and is feeling well. No pain. No numbness in the forearm. No drainage or fevers chills. Patient here for the foot wound and the sacral wound is well. Reports excellent VAC changes and tolerance of the TheraSkin. 14 Mar 2025: Doing well overall. No appointment this past Tuesday secondary to and TheraSkin fell off from the heal on its own yesterday. There is notes there is scan ordered for today and it will be replaced on this coming Tuesday. 18 March 2025: Doing well overall. No significant change since last appoint. Endorses good dressing changes 25 March 2025: Doing well overall. No big changes. Tolerating TheraSkin treatments and VAC changes. Current encounter, 01 April 2025: Doing well overall. Tolerating TheraSkin Objective Data Objective Data Vital Signs: Vital Signs Temp Pulse Resp BP O2 Del Method 96.3 F L 74 18 133/75 H Room Air 04/01/25 09:52 04/01/25 09:52 04/01/25 09:52 04/01/25 09:52 04/01/25 09:52 Oxygen Delivery Method Room Air Weight: 220 lb 0.271 oz Body Mass Index (BMI) 31.6 Charges/Coding Procedures Integumentary 150xxx-152xx: 34180 Skin sub graft face/nk/hf/g Physical Exam Narrative Sacral wound Stage 3, 2 x 2 cm and undermines approximately 3 cm medially and superiorly. No purulence/no exposed bone. Left lower extremity: Heel wound is 4.5 x 3 cm. There is beefy red-pink granulation tissue at the base of the wound. Motor: 4 out of 5 hip flexion and extension bilaterally, 4 out of 5 knee flexion and extension bilaterally, 0 out of 5 foot plantarflexion and dorsiflexion. Sensation: No sensation to light touch on the feet. Consistent with peripheral neuropathy. Vascular: No palpable pulses but the feet are warm bilaterally. Lymph Lymphatic: no lymphadenopathy noted Lymphatic Narrative: No left axillary or left antecubital lymphadenopathy Cardio regular rate and regular rhythm Extremity Extremity Narrative: Left upper extremity Incision healed from SSC wide-local excision. Skin Skin Narrative: Left forearm Prineo tape removed. Incision is clean dry and intact and has healed nicely. No signs of recurrence of the squamous cell carcinoma. No healing issues Debridement Note Debridement Note No debridement was completed: No debridement was completed today (Aside from the theraskin debridement and application as noted below ) Post-Debridement Measurements and Additional Note: Post-Debridement Measurements/Treatment WC - Nurse 1 - General Ulcer Assessment Start: 03/18/25 09:45 Freq: Status: Active Protocol: WC.LOWEXT Activity Type Activity Date Activity User E-sign Co-sign Detail Recorded Client Recorded Date Recorded By Document 03/18/25 09:45 ML [id number] 03/18/25 09:52 ML Document 03/25/25 09:45 KW [id number] 03/25/25 09:57 KW Document 04/01/25 09:52 KW [id number] 04/01/25 10:10 KW 03/18/25 03/25/25 04/01/25 09:45 09:45 09:52 WC - Today's Visit Information Type of service Follow-up Visit Follow-up Visit Follow-up Visit (Physician/SHIPPING PACKER (Physician/SHIPPING PACKER (Physician/SHIPPING PACKER ) ) ) Arrival Mode Wheelchair Wheelchair Wheelchair Transfer Assistance Manual Accompanied by Patient Identification Verified (Name & Yes Yes Yes ) Patient Requires Transmission-Based No Precautions Height and Weight Body Mass Index (BMI) 31.6 31.6 31.6 BMI Classification Obese Obese Obese Vital Signs Temperature (97.8 F-99.1 F) 96.6 F L 96.5 F L 96.3 F L Temperature Source Temporal Temporal Temporal Pulse Rate (60-100) 77 76 74 Pulse Location Monitor Monitor Monitor Respiratory Rate (12-18) 14 18 18 Respiratory rate source Monitor Observation Observation Oxygen Delivery Method Room Air Room Air Blood Pressure (90/60-120/80) 116/67 111/76 133/75 H Blood Pressure Mean (mm Hg) 83 87 94 Source Monitor Monitor Monitor Position Sitting Sitting Blood Pressure Location Right Forearm Right Arm Left Arm History Since Last Visit- (Skip if this is Patient's initial visit) Have you changed medications since your No No No last visit? Any new allergies or adverse reactions No No No Had a fall/change in ADL's that may No No No increase risk of falls Signs or symptoms of abuse and/or No No No neglect since last visit Have you been in the hospital since your No No No last visit? Has dressing in place as prescribed Yes Yes Yes Has compression in place as prescribed Yes Yes Yes Has offloadiing in place as prescribed Yes N/A Yes Experienced any changes in pain level or No No No management Left Footwear Surgical Shoe Surgical Shoe with pressure with pressure relief insole relief insole Right Footwear Regular Shoe Regular Shoe Pain Scale: 0-10 Numeric Is Patient Pain Free? Yes Yes Yes WC - Nurse 1 - General Ulcer Measurement Start: 03/18/25 09:45 Freq: Status: Active Protocol: Activity Type Activity Date Activity User E-sign Co-sign Detail Recorded Client Recorded Date Recorded By Document 03/18/25 09:45 ML [id number] 03/18/25 09:52 ML Document 03/25/25 09:45 KW [id number] 03/25/25 09:57 KW Document 04/01/25 09:52 KW [id number] 04/01/25 10:10 KW 03/18/25 03/25/25 04/01/25 09:45 09:45 09:52 Wound Center Nurse 1 #2 L Heel -Current Size (cm) - Length 4.3 5 5 -Current Size (cm) - Width 4.8 3 3.5 -Current Size (cm) - Depth 0.1 0.1 0.1 -Total Square Cm 20.64 15 17.5 -Date of Last Picture (Recall this 03/25/25 04/01/25 field) -Exudate Amt Medium Large -Exudate Type Yellow/Green Serosanguineous -Wound Margin Distinct, Distinct, Outline Outline Attached Attached -Granulation Amt Medium (34-66%) Large (67-100%) -Granulation Quality [place],Red -Slough/Fibrin Yes -Necrosis Amt None Present (0 Medium (34-66%) %) -Necrotic Tissue Type Adherent Slough Adherent Slough -Texture (Andreea-wound Skin Appearance) Assessed Assessed Assessed -Moisture (Andreea-wound Skin Appearance) Assessed Assessed -Color ([place]reea-wound Skin Appearance) Assessed Assessed Assessed -Temperature ([place]ree[place]-wound Skin No Abnormality No Abnormality No Abnormality Appearance) (Pt Warm) (Pt Warm) (Pt Warm) -Tenderness on Palpation ([place]reea-wound No No No Skin Appearance) -Ulcer Cleansing Soap and Water Soap and Water Soap and Water -Foul Odor after Cleansing Yes No No -Anesthetic Used 5% Lidocaine 5% Lidocaine 5% Lidocaine Gel Gel Gel #1 Sacral Cluster -Current Size (cm) - Length 3 2.8 3 -Current Size (cm) - Width 1 1 0.8 -Current Size (cm) - Depth 2.7 3 2.9 -Total Square Cm 3 2.8 2.4 -Date of Last Picture (Recall this 03/25/25 04/01/25 field) -Tunneling Yes -Tunneling Position (O'clock) 12 -Tunneling Distance (cm) 4.1 -Undermining/Tunneling Yes -Undermining/Tunneling Starts (O'clock 6 ) -Undermining/Tunneling Ends (O'clock) 12 -Maximum Distance (cm) 3.5 -Circular Undermining Yes -Exudate Amt Large Large Large -Exudate Type Serosanguineous Serosanguineous Serosanguineous -Wound Margin Distinct, Outline Attached -Granulation Amt Medium (34-66%) Large (67-100%) Large (67-100%) -Granulation Quality [place] -Necrosis Amt Small (1-33%) -Necrotic Tissue Type Adherent Slough Adherent Slough -Texture (Andreea-wound Skin Appearance) Assessed Assessed Assessed -Moisture (Andreea-wound Skin Appearance) Maceration Assessed, Assessed, Maceration Maceration -Color (Andreea-wound Skin Appearance) Assessed Assessed Assessed -Temperature ([place]ree[place]-wound Skin No Abnormality No Abnormality Appearance) (Pt Warm) (Pt Warm) -Tenderness on Palpation ([place]reea-wound No No Skin Appearance) -Ulcer Cleansing Soap and Water Soap and Water Soap and Water -Foul Odor after Cleansing No No No -Anesthetic Used 5% Lidocaine 5% Lidocaine 5% Lidocaine Gel Gel Gel Left Calf (cm) 38.2 Left Ankle (cm) 23.5 WC - Nurse 2 - General Ulcer CM Notes Start: 03/18/25 09:45 Freq: Status: Active Protocol: Activity Type Activity Date Activity User E-sign Co-sign Detail Recorded Client Recorded Date Recorded By Document 03/18/25 10:42 DS [id number] 03/18/25 10:45 DS Edit Result 03/18/25 10:42 DS (1) [id number] 03/25/25 15:48 DS Document 03/25/25 10:04 DS [id number] 03/25/25 10:07 DS (1) #2 L Heel - Debridement - Subq, 1st 20sq cm Yes => No 03/18/25 03/25/25 10:42 10:04 Wound Center Nurse 2 #2 L Heel -Time 10:42 10:04 -Correct Patient Yes Yes -Correct Side, Site, Position Yes Yes -Correct Procedure Yes Yes -Procedure Performed Yes Yes -Type of Procedure Debridement Debridement -Clinical Debridement Subcutaneous Subcutaneous -Tissue Removed Subcutaneous Subcutaneous -Post Debridement (cm) - Length 5.0 4.5 -Post Debridement (cm) - Width 3.0 2.5 -Post Debridement (cm) - Depth 0.1 0.1 -Total Square (Post) (cm) 15.00 11.25 -Area of Debridement (cm) - Length 5.0 4.5 -Area of Debridement (cm) - Width 3.0 2.5 -Total Square (Area) (cm) 15.00 11.25 -Tunneling No No -Undermining/Tunneling No No -Circular Undermining No No -Wound/Ulcer Outcome Not Healed Not Healed -Ulcer Cleansing Rinsed/ Rinsed/ Irrigated with Irrigated with Saline Saline -Foul Odor after Cleansing No No -Bioengineered Tissue Yes Yes -Type of Bioengineered Tissue Theraskin Theraskin -Expiration Date 09/18/29 09/25/29 -Product Lot Number [id number] -Percent Used 100 100 -Lot number of Saline Used [id number] -Bleeding Controlled with Pressure Pressure -Treatment Response Procedure Procedure Tolerated Well Tolerated Well -Debridement - Subq, 1st 20sq cm No No -Apply Skin Sub - 1st 25 sq cm - Feet 1 1 -Dermabond 2 2 -Theraskin - 26TS (26 SQ CM) 26 26 Application 1-4 (per sq cm) #1 Sacral Cluster -Time 10:43 10:06 -Correct Patient Yes Yes -Correct Side, Site, Position Yes Yes -Procedure Performed No No -Post Debridement (cm) - Length 2.0 -Post Debridement (cm) - Width 2.0 -Post Debridement (cm) - Depth 3.0 -Total Square (Post) (cm) 4.00 -Area of Debridement (cm) - Length 2.0 -Area of Debridement (cm) - Width 2.0 -Total Square (Area) (cm) 4.00 -Tunneling No -Undermining/Tunneling Yes -Undermining/Tunneling Starts (O'clock 9 ) -Undermining/Tunneling Ends (O'clock) 12 -Maximum Distance (cm) 3.0 -Circular Undermining No -Wound/Ulcer Outcome Not Healed Not Healed -Ulcer Cleansing Rinsed/ Irrigated with Saline -Foul Odor after Cleansing No -Bioengineered Tissue No Pain Scale: 0-10 Numeric Is Patient Pain Free? Yes Yes - Nurse 3 - General Ulcer D/C NN Start: 03/18/25 09:45 Freq: Status: Active Protocol: Activity Type Activity Date Activity User E-sign Co-sign Detail Recorded Client Recorded Date Recorded By Document 03/18/25 11:08 KW [id number] 03/18/25 11:10 KW Document 03/25/25 10:40 JF [id number] 03/25/25 10:41 JF 03/18/25 03/25/25 11:08 10:40 Wound Care Center Nurse 3 #2 L Heel -Ulcer Cleansing Rinsed/ Irrigated with Saline -Other Dressing flushed gauze with nurse hat -Primary Dressing Covered/Secured with Dry Gauze & Dry Gauze & Roll Gauze, Roll Gauze, Secured with Secured with Tape Tape #1 Sacral Cluster -Ulcer Cleansing rinse with Rinsed/ dakins Irrigated with Saline -Negative Pressure Wound Therapy Continue Continue -Pieces of Black Foam Inserted 1 1 -NPWT Application Charge NPWT & NPWT </= 50 sq Debridement (nc cm ($) ) -Setting (mmHg) 125 125 -Negative Pressure is Continuous Continuous LLE -Tubular Bandage Single Layer -Size of Tubigrip Used Size D -Size D ($) 0 -Other pt own tubigrip , medium compression Pain Scale: 0-10 Numeric Is Patient Pain Free? Yes Yes - Visit Discharge Discharge Condition Stable Stable Ambulatory Status Wheelchair Transportation Private Auto Private Auto Accompanied by Medication Reconcilliation completed & No Yes provided to patient/care provider Clinical Summary of Care Provided Yes Yes Notes: uses scooter Assessment/Plan Assessment/Plan (1) Stage 4 decubitus ulcer: CODE(S): L89.94 - Pressure ulcer of unspecified site, stage 4 QUALIFIERS: Pressure injury location: sacral region Qualified Code(s): L89.154 - Pressure ulcer of sacral region, stage 4 PLAN: Now stage III with granulation over the bone. 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 He is not interested in skin grafting and would like to try a skin substitute such as there is skin first. Will continue TheraSkin. Vascular surgery was consulted. Noncompressible arterial vessels at the ankles, but waveforms were reassuring. Given history of diabetes and arterial insufficiency, however, they have ordered a CTA with runoff to evaluate for focal stenosis. I talked to the patient and his about the CTA and they would like to defer this at this time as they have too much going on with their healthcare. TheraSkin was placed today Procedure details: The wound was cleaned and debrided with a 7mm curette removing biofilm and debris. A 26 cm? TheraSkin was applied and trimmed to fit. The wound measured 4.5 x 3 cm and 0.1 cm deep. The TheraSkin was applied and Dermabond was used to keep it place on the skin edges. A wound veil (this time with Adaptic) was then applied with Steri-Strips and an ABD and tape Patient is will change the ABD and tape daily. Follow-up in 1 week for another treatment. They are happy with the plan
--- NOTE | 2025-04-01 13:46 | WC ---
PHOTO 04/01/25 LEFT HEEL
--- NOTE | 2025-04-01 13:51 | WC ---
PHOTO 04/01/25 SACRUM
--- NOTE | 2025-04-08 | LES_PTH ---
PATIENT: BRANDY LOMELI LOC: U#:[id number] AGE/SX: 84/M ROOM: RE04/08/[address]: Dr. Jeevan Sewell MD : [id number] BED: DIS: 04/15/2025 SPEC #: [id number] RECD: 04/08/25 14:58 STATUS: SHAE LILIA #: [id number] DAMIAN: 04/08/25 00:[address]: Jeevan Sewell DEPT: SURGICAL PATHOLOGY RECD BY: Vimal Mccain ENTERED: 04/09/25 08:19 SP TYPE: Lesion OTHR DR: Dr. Matt Flores, Tissues: A - Bone of foot, NOS Procedures: Decalcification bone/plaque Surgery Specimen Level V HEADER OPERATION: Left heel PRE-OP DIAGNOSIS: Rule out osteo TISSUE SUBMITTED: A- Left heel biopsy MICROSCOPIC DIAGNOSIS A. Bone, heel, left, biopsy: * Trabecular bone with fibrotic marrow and mild chronic inflammation - see note. * Scant pigment suggestive of hemosiderin. * No significant acute inflammation. * Note: The histologic findings could reflect chronic osteomyelitis. Recommend correlation with clinical and imaging findings. * MICROSCOPIC DESCRIPTION Slides are reviewed. GROSS DESCRIPTION A. Received in formalin labeled with the patient's name and date of . Designated as L heel is a 0.5 x 0.5 x 0.2 cm hollins to dark red irregular bone fragment. Entirely submitted in 1 cassette, following decalcification MD 04/09/2025 CPT:05247,52982
[2025-04-08 10:55] VITALS: BMI 31.6
--- NOTE | 2025-04-08 13:30 | PCM.WC.PN ---
History of Present Illness Date of Service: 04/08/25 Chief Complaint: Follow-up on buttocks right and left heel wounds that have been going on for months. History of Wound: Chief Complaint: Follow-up on buttocks right and left heel wounds that have been going on for months. 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 He has not walked in several years. He is able to stand up to perform transfers, but does not move his ankle joints. He lays on his chair most of the day. And has developed a sacral wound that he has been following at the wound care center for as well as a left calcaneal wound in the setting of a recent hospitalization this past year, both of which he has been following here at the wound center with various advanced practice providers. Wound culture of left heel ulcer from 08/08/24 positive for MDRO Pseudomonas aeruginosa. Referral to infectious disease for treatment s/p antibiotic regimen. MRI of Pelvis 08/16/24 - Sacral decubitus ulcer with sacrococcygeal osteomyelitis. Treated by infectious disease with long-term course of IV antibiotics. Progress of Wound: The sacral ulcer with bone palpable but covered with granulation tissue and is beefy pink. There is undermining present, which is stable. The perineal ulcer (skin tear proximal to sacral ulcer) remains healed. Left medial heel appears improved with pink ulcer bed and much less non viable tissue present. He is sleeping on the low air loss mattress. 10 December 2024: Patient reports that he has not had any vascular workup for the lower extremity. He has a history of a DVT in the left lower extremity in the remote history and remains on Eliquis for anticoagulation. He reports episodic swelling in the left lower extremity that appears to be worsening the condition of the wound. He is not having any shortness of breath. He is not having any systemic signs or symptoms of infection. 17 December 2024: Doing well with wound care (VAC dressings) which started this past Tuesday. They have an appointment for ABIs and US for evaluation of the lower extremity. He has not gotten his xray of the foot yet, but is planning to get that soon (discussed). Labs obtained 14 Dec 2024 A1C 6.7 Prealb 27 Alb 3.4 Subjective Subjective 07 January 2025: Imaging reviewed. No osteomyelitis on the xray of the foot. There were no DVT on venous study. Arterial study demonstrated noncompressible vessels 2/2 to significant calcifications of the vasculature Patient has been doing well overall, however. Tolerating dressing changes. 21 January 2025: Doing well overall with dressing changes except there is been an odor coming from the sacral wound after the VAC changes, his would like us to look today. Patient has seen Dr. Farooq (heart doctor) this past week on 19 January 2025 and he discontinued his amiodarone and his blood thinner (patient has been regular with rate and rhythm). He has been off the blood thinner for greater than 48 hours now. Patient also has a follow-up of his ABIs with vascular surgery on 23 January 2025 (2 days from now) To assess need for intervention for increased blood flow to the foot wound. There is another area of concern in the left forearm today that the patient and his would like me to biopsy. It has been there for several months and growing. It is a scaly/scabby lesion on the left proximal dorsal forearm. Biopsy results (from biopsy on 07 January 2025) of the heel wound did not demonstrate any signs of malignancy. 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 This was discussed with the patient and his . Patient doing well overall and is tolerating the TheraSkin applications to the heel. Wound VAC dressing changes are going well as well 18 Feb 2025: Doing well overall. Tolerating theraskin. On the scheduled for excision of the SSC of the left forearm next week. 27 Feb 2025: Tolerating TheraSkin. No fevers chills. All questions answered about once his excision procedure for left forearm squamous cell carcinoma. Patient has been seeing his oncologist and has been getting infusions to increase his white blood cell counts and promote healing. 04 Mar 2025: Reviewed pathology with the patient and his at today's visit from the left forearm squamous cell carcinoma excision. It was negative for malignancy, margins were free from carcinoma. Patient tolerated the procedure well and is feeling well. No pain. No numbness in the forearm. No drainage or fevers chills. Patient here for the foot wound and the sacral wound is well. Reports excellent VAC changes and tolerance of the TheraSkin. 14 Mar 2025: Doing well overall. No appointment this past Tuesday secondary to and TheraSkin fell off from the heal on its own yesterday. There is notes there is scan ordered for today and it will be replaced on this coming Tuesday. 18 March 2025: Doing well overall. No significant change since last appoint. Endorses good dressing changes 25 March 2025: Doing well overall. No big changes. Tolerating TheraSkin treatments and VAC changes. 22 March 2025: Doing well overall. Tolerating TheraSkin Current encounter, 08 April 2025: Tolerating TheraSkin. No fevers chills or drainage. Reports improvement in the size of the sacral wound and persistent heel wound Objective Data Objective Data Vital Signs: Vital Signs Temp Pulse Resp BP O2 Del Method 96.3 F L 74 18 133/75 H Room Air 04/01/25 09:52 04/01/25 09:52 04/01/25 09:52 04/01/25 09:52 04/01/25 09:52 Oxygen Delivery Method Room Air Weight: 220 lb 0.271 oz Body Mass Index (BMI) 31.6 Charges/Coding Procedures Integumentary 150xxx-152xx: 87719 Skin sub graft face/nk/hf/g Procedures Musculoskeletal 20xxx-29xxx: 40318 Bone biopsy open superficial Physical Exam Narrative Sacral wound Stage 3, 2 x 2 cm and undermines approximately 2 cm medially and superiorly. No purulence/no exposed bone. Good granulation at the base of the wound, improving with the VAC Left lower extremity: Heel wound is 4.5 x 3 cm. There is beefy red-pink granulation tissue at the base of the wound except for a 1 x 1 cm central portion with fibrinous exudate and slight drainage which probes to the bone (exposed bone today) Motor: 4 out of 5 hip flexion and extension bilaterally, 4 out of 5 knee flexion and extension bilaterally, 0 out of 5 foot plantarflexion and dorsiflexion. Sensation: No sensation to light touch on the feet. Consistent with peripheral neuropathy. Vascular: No palpable pulses but the feet are warm bilaterally. Lymph Lymphatic: no lymphadenopathy noted Lymphatic Narrative: No left axillary or left antecubital lymphadenopathy Cardio regular rate and regular rhythm Extremity Extremity Narrative: Left upper extremity Incision healed from SSC wide-local excision. Skin Skin Narrative: Left forearm Prineo tape removed. Incision is clean dry and intact and has healed nicely. No signs of recurrence of the squamous cell carcinoma. No healing issues Debridement Note Debridement Note Wound debrided: Left calcaneal wound Laterality: Left Wound Grade/Stage: Stage IV with exposed bone Type of Debridement: Excisional debridement and - (Bone biopsy for tissue sampling and culture) Anesthesia Used: 4% Lidocaine Solution and - (10 cc of 1% lidocaine with 1-200,000 epinephrine) Depth: to bone (A bone biopsy was performed with a rongeur) Percentage of wound debrided: 100 Instrument Used: 7mm curette, Forceps and - (Scissors and a rongeur (clean rongeur) ) Tissue Removed: Fibrinous exudate and bone Severity: Necrosis of Bone Amount of bleeding with debridement: Moderate Bleeding Controlled with: Compression and gauze and - (Pen Bovie electrocautery and local with epinephrine as noted above) Patient tolerated procedure: Patient tolerated procedure well Debridement Free Text: The wound was debrided with a 7 mm curette to remove fibrinous exudate and hypertrophic granulation tissue and biofilm from the subcutaneous portions of the wound. The area of exposed bone was debrided with a rongeur for a bone biopsy that was sent to pathology for both microscopic analysis (formalin) as well as culture. Before the bone culture was taken the wound was prepped and draped in sterile fashion using Betadine. The rongeur was clean. TheraSkin was applied (see below) as a dressing following the bone biopsy and debridement Post-Debridement Measurements and Additional Note: Post-Debridement Measurements/Treatment - Nurse 1 - General Ulcer Assessment Start: 03/18/25 09:45 Freq: Status: Active Protocol: CHEL Activity Type Activity Date Activity User E-sign Co-sign Detail Recorded Client Recorded Date Recorded By Document 03/18/25 09:45 ML [id number] 03/18/25 09:52 ML Document 03/25/25 09:45 KW [id number] 03/25/25 09:57 KW Document 04/01/25 09:52 KW [id number] 04/01/25 10:10 KW Document 04/08/25 10:55 DS [id number] 04/08/25 10:57 DS 03/18/25 03/25/25 04/01/25 09:45 09:45 09:52 - Today's Visit Information Type of service Follow-up Visit Follow-up Visit Follow-up Visit (Physician/NUTRITION EDUCATOR (Physician/NUTRITION EDUCATOR (Physician/NUTRITION EDUCATOR ) ) ) Arrival Mode Wheelchair Wheelchair Wheelchair Transfer Assistance Manual Accompanied by Patient Identification Verified (Name & Yes Yes Yes ) Patient Requires Transmission-Based No Precautions Height and Weight Body Mass Index (BMI) 31.6 31.6 31.6 BMI Classification Obese Obese Obese Vital Signs Temperature (97.8 F-99.1 F) 96.6 F L 96.5 F L 96.3 F L Temperature Source Temporal Temporal Temporal Pulse Rate (60-100) 77 76 74 Pulse Location Monitor Monitor Monitor Respiratory Rate (12-18) 14 18 18 Respiratory rate source Monitor Observation Observation Oxygen Delivery Method Room Air Room Air Blood Pressure (90/60-120/80) 116/67 111/76 133/75 H Blood Pressure Mean (mm Hg) 83 87 94 Source Monitor Monitor Monitor Position Sitting Sitting Blood Pressure Location Right Forearm Right Arm Left Arm History Since Last Visit- (Skip if this is Patient's initial visit) Have you changed medications since your No No No last visit? Any new allergies or adverse reactions No No No Had a fall/change in ADL's that may No No No increase risk of falls Signs or symptoms of abuse and/or No No No neglect since last visit Have you been in the hospital since your No No No last visit? Has dressing in place as prescribed Yes Yes Yes Has compression in place as prescribed Yes Yes Yes Has offloadiing in place as prescribed Yes N/A Yes Experienced any changes in pain level or No No No management Left Footwear Surgical Shoe Surgical Shoe with pressure with pressure relief insole relief insole Right Footwear Regular Shoe Regular Shoe Pain Scale: 0-10 Numeric Is Patient Pain Free? Yes Yes Yes 04/08/25 10:55 - Today's Visit Information Type of service Follow-up Visit (Physician/NUTRITION EDUCATOR ) Arrival Mode Wheelchair Transfer Assistance Accompanied by Patient Identification Verified (Name & Yes ) Patient Requires Transmission-Based Precautions Height and Weight Body Mass Index (BMI) 31.6 BMI Classification Obese Vital Signs Temperature (97.8 F-99.1 F) Temperature Source Pulse Rate (60-100) Pulse Location Respiratory Rate (12-18) Respiratory rate source Oxygen Delivery Method Blood Pressure (90/60-120/80) Blood Pressure Mean (mm Hg) Source Position Blood Pressure Location History Since Last Visit- (Skip if this is Patient's initial visit) Have you changed medications since your No last visit? Any new allergies or adverse reactions No Had a fall/change in ADL's that may No increase risk of falls Signs or symptoms of abuse and/or No neglect since last visit Have you been in the hospital since your No last visit? Has dressing in place as prescribed Yes Has compression in place as prescribed N/A Has offloadiing in place as prescribed N/A Experienced any changes in pain level or No management Left Footwear Regular Shoe Right Footwear Regular Shoe Pain Scale: 0-10 Numeric Is Patient Pain Free? Yes WC - Nurse 1 - General Ulcer Measurement Start: 03/18/25 09:45 Freq: Status: Active Protocol: Activity Type Activity Date Activity User E-sign Co-sign Detail Recorded Client Recorded Date Recorded By Document 03/18/25 09:45 ML [id number] 03/18/25 09:52 ML Document 03/25/25 09:45 KW [id number] 03/25/25 09:57 KW Document 04/01/25 09:52 KW [id number] 04/01/25 10:10 KW Document 04/08/25 10:55 DS [id number] 04/08/25 10:57 DS 03/18/25 03/25/25 04/01/25 09:45 09:45 09:52 Wound Center Nurse 1 #2 L Heel -Current Size (cm) - Length 4.3 5 5 -Current Size (cm) - Width 4.8 3 3.5 -Current Size (cm) - Depth 0.1 0.1 0.1 -Total Square Cm 20.64 15 17.5 -Date of Last Picture (Recall this 03/25/25 04/01/25 field) -Exudate Amt Medium Large -Exudate Type Yellow/Green Serosanguineous -Wound Margin Distinct, Distinct, Outline Outline Attached Attached -Granulation Amt Medium (34-66%) Large (67-100%) -Granulation Quality Red Cadott,Red -Slough/Fibrin Yes -Necrosis Amt None Present (0 Medium (34-66%) %) -Necrotic Tissue Type Adherent Slough Adherent Slough -Texture (Andreea-wound Skin Appearance) Assessed Assessed Assessed -Moisture (Andreea-wound Skin Appearance) Assessed Assessed -Color (Andreea-wound Skin Appearance) Assessed Assessed Assessed -Temperature (Andreea-wound Skin No Abnormality No Abnormality No Abnormality Appearance) (Pt Warm) (Pt Warm) (Pt Warm) -Tenderness on Palpation (Andreea-wound No No No Skin Appearance) -Ulcer Cleansing Soap and Water Soap and Water Soap and Water -Foul Odor after Cleansing Yes No No -Anesthetic Used 5% Lidocaine 5% Lidocaine 5% Lidocaine Gel Gel Gel #1 Sacral Cluster -Current Size (cm) - Length 3 2.8 3 -Current Size (cm) - Width 1 1 0.8 -Current Size (cm) - Depth 2.7 3 2.9 -Total Square Cm 3 2.8 2.4 -Date of Last Picture (Recall this 03/25/25 04/01/25 field) -Tunneling Yes -Tunneling Position (O'clock) 12 -Tunneling Distance (cm) 4.1 -Undermining/Tunneling Yes -Undermining/Tunneling Starts (O'clock 6 ) -Undermining/Tunneling Ends (O'clock) 12 -Maximum Distance (cm) 3.5 -Circular Undermining Yes -Exudate Amt Large Large Large -Exudate Type Serosanguineous Serosanguineous Serosanguineous -Wound Margin Distinct, Outline Attached -Granulation Amt Medium (34-66%) Large (67-100%) Large (67-100%) -Granulation Quality Cadott,Red Cadott -Necrosis Amt Small (1-33%) -Necrotic Tissue Type Adherent Slough Adherent Slough -Texture (Andreea-wound Skin Appearance) Assessed Assessed Assessed -Moisture (Andreea-wound Skin Appearance) Maceration Assessed, Assessed, Maceration Maceration -Color (Andreea-wound Skin Appearance) Assessed Assessed Assessed -Temperature (Andreea-wound Skin No Abnormality No Abnormality Appearance) (Pt Warm) (Pt Warm) -Tenderness on Palpation (Andreea-wound No No Skin Appearance) -Ulcer Cleansing Soap and Water Soap and Water Soap and Water -Foul Odor after Cleansing No No No -Anesthetic Used 5% Lidocaine 5% Lidocaine 5% Lidocaine Gel Gel Gel Left Calf (cm) 38.2 Left Ankle (cm) 23.5 04/08/25 10:55 Wound Center Nurse 1 #2 L Heel -Current Size (cm) - Length 5.5 -Current Size (cm) - Width 3.1 -Current Size (cm) - Depth -Total Square Cm 17.05 -Date of Last Picture (Recall this field) -Exudate Amt -Exudate Type -Wound Margin -Granulation Amt -Granulation Quality -Slough/Fibrin -Necrosis Amt -Necrotic Tissue Type -Texture (Andreea-wound Skin Appearance) -Moisture (Andreea-wound Skin Appearance) -Color (Andreea-wound Skin Appearance) -Temperature (Andreea-wound Skin Appearance) -Tenderness on Palpation (Andreea-wound Skin Appearance) -Ulcer Cleansing -Foul Odor after Cleansing -Anesthetic Used #1 Sacral Cluster -Current Size (cm) - Length 2.5 -Current Size (cm) - Width 1 -Current Size (cm) - Depth 1.5 -Total Square Cm 2.5 -Date of Last Picture (Recall this field) -Tunneling -Tunneling Position (O'clock) -Tunneling Distance (cm) -Undermining/Tunneling -Undermining/Tunneling Starts (O'clock ) -Undermining/Tunneling Ends (O'clock) -Maximum Distance (cm) -Circular Undermining -Exudate Amt -Exudate Type -Wound Margin -Granulation Amt -Granulation Quality -Necrosis Amt -Necrotic Tissue Type -Texture (Andreea-wound Skin Appearance) -Moisture (Andreea-wound Skin Appearance) -Color (Andreea-wound Skin Appearance) -Temperature (Andreea-wound Skin Appearance) -Tenderness on Palpation (Andreea-wound Skin Appearance) -Ulcer Cleansing -Foul Odor after Cleansing -Anesthetic Used Left Calf (cm) Left Ankle (cm) WC - Nurse 2 - General Ulcer CM Notes Start: 03/18/25 09:45 Freq: Status: Active Protocol: Activity Type Activity Date Activity User E-sign Co-sign Detail Recorded Client Recorded Date Recorded By Document 03/18/25 10:42 DS [id number] 03/18/25 10:45 DS Edit Result 03/18/25 10:42 DS (1) [id number] 03/25/25 15:48 DS Document 03/25/25 10:04 DS [id number] 03/25/25 10:07 DS Document 04/01/25 10:39 DS [id number] 04/01/25 10:40 DS Document 04/08/25 11:24 DS [id number] 04/08/25 11:33 DS (1) #2 L Heel - Debridement - Subq, 1st 20sq cm Yes => No 03/18/25 03/25/25 04/01/25 10:42 10:04 10:39 Wound Center Nurse 2 #2 L Heel -Time 10:42 10:04 10:39 -Correct Patient Yes Yes Yes -Correct Side, Site, Position Yes Yes Yes -Correct Procedure Yes Yes Yes -Procedure Performed Yes Yes Yes -Type of Procedure Debridement Debridement Debridement -Clinical Debridement Subcutaneous Subcutaneous Subcutaneous -Tissue Removed Subcutaneous Subcutaneous Subcutaneous -Post Debridement (cm) - Length 5.0 4.5 4.5 -Post Debridement (cm) - Width 3.0 2.5 3.0 -Post Debridement (cm) - Depth 0.1 0.1 0.1 -Total Square (Post) (cm) 15.00 11.25 13.50 -Area of Debridement (cm) - Length 5.0 4.5 4.5 -Area of Debridement (cm) - Width 3.0 2.5 3.0 -Total Square (Area) (cm) 15.00 11.25 13.50 -Tunneling No No No -Undermining/Tunneling No No No -Circular Undermining No No No -Wound/Ulcer Outcome Not Healed Not Healed Not Healed -Ulcer Cleansing Rinsed/ Rinsed/ Rinsed/ Irrigated with Irrigated with Irrigated with Saline Saline Saline -Foul Odor after Cleansing No No No -Bioengineered Tissue Yes Yes Yes -Type of Bioengineered Tissue Theraskin Theraskin Theraskin -Expiration Date 09/18/29 09/25/29 06/15/29 -Product Lot Number [id number] -Percent Used 100 100 100 -Lot number of Saline Used [id number] -Injectable Lidocaine w/ Epi (%) -Injectable Lidocaine w/ Epi (mls) -Bleeding Controlled with Pressure Pressure Pressure -Treatment Response Procedure Procedure Procedure Tolerated Well Tolerated Well Tolerated Well -Debridement - Subq, 1st 20sq cm No No No -Debridement - Bone, 1st 20sq cm -Apply Skin Sub - 1st 25 sq cm - Feet 1 1 1 -Dermabond 2 2 -Theraskin - 26TS (26 SQ CM) 26 26 26 Application 1-4 (per sq cm) #1 Sacral Cluster -Time 10:43 10:06 10:40 -Correct Patient Yes Yes Yes -Correct Side, Site, Position Yes Yes Yes -Procedure Performed No No No -Post Debridement (cm) - Length 2.0 -Post Debridement (cm) - Width 2.0 -Post Debridement (cm) - Depth 3.0 -Total Square (Post) (cm) 4.00 -Area of Debridement (cm) - Length 2.0 -Area of Debridement (cm) - Width 2.0 -Total Square (Area) (cm) 4.00 -Tunneling No -Undermining/Tunneling Yes -Undermining/Tunneling Starts (O'clock 9 ) -Undermining/Tunneling Ends (O'clock) 12 -Maximum Distance (cm) 3.0 -Circular Undermining No -Wound/Ulcer Outcome Not Healed Not Healed Not Healed -Ulcer Cleansing Rinsed/ Irrigated with Saline -Foul Odor after Cleansing No -Bioengineered Tissue No Pain Scale: 0-10 Numeric Is Patient Pain Free? Yes Yes Yes 04/08/25 11:24 Wound Center Nurse 2 #2 L Heel -Time 11:24 -Correct Patient Yes -Correct Side, Site, Position Yes -Correct Procedure Yes -Procedure Performed Yes -Type of Procedure Debridement -Clinical Debridement Bone -Tissue Removed Fascia -Post Debridement (cm) - Length 4.5 -Post Debridement (cm) - Width 2.8 -Post Debridement (cm) - Depth -Total Square (Post) (cm) 12.60 -Area of Debridement (cm) - Length 4.5 -Area of Debridement (cm) - Width 2.8 -Total Square (Area) (cm) 12.60 -Tunneling No -Undermining/Tunneling No -Circular Undermining No -Wound/Ulcer Outcome Not Healed -Ulcer Cleansing Rinsed/ Irrigated with Saline -Foul Odor after Cleansing No -Bioengineered Tissue No -Type of Bioengineered Tissue Theraskin -Expiration Date 10/29/29 -Product Lot Number [id number] -Percent Used 100 -Lot number of Saline Used [id number] -Injectable Lidocaine w/ Epi (%) 1 -Injectable Lidocaine w/ Epi (mls) 10 -Bleeding Controlled with Pressure, Chemical Cauterization ( $) -Treatment Response Procedure Tolerated Well -Debridement - Subq, 1st 20sq cm -Debridement - Bone, 1st 20sq cm No -Apply Skin Sub - 1st 25 sq cm - Feet 1 -Dermabond -Theraskin - 26TS (26 SQ CM) 26 Application 1-4 (per sq cm) #1 Sacral Cluster -Time 11:24 -Correct Patient Yes -Correct Side, Site, Position Yes -Procedure Performed No -Post Debridement (cm) - Length 1.0 -Post Debridement (cm) - Width 3.0 -Post Debridement (cm) - Depth 2.0 -Total Square (Post) (cm) 3.00 -Area of Debridement (cm) - Length 1.0 -Area of Debridement (cm) - Width 3.0 -Total Square (Area) (cm) 3.00 -Tunneling No -Undermining/Tunneling Yes -Undermining/Tunneling Starts (O'clock 12 ) -Undermining/Tunneling Ends (O'clock) 9 -Maximum Distance (cm) 2 -Circular Undermining No -Wound/Ulcer Outcome Not Healed -Ulcer Cleansing -Foul Odor after Cleansing -Bioengineered Tissue Pain Scale: 0-10 Numeric Is Patient Pain Free? Yes WC - Nurse 3 - General Ulcer D/C NN Start: 03/18/25 09:45 Freq: Status: Active Protocol: Activity Type Activity Date Activity User E-sign Co-sign Detail Recorded Client Recorded Date Recorded By Document 03/18/25 11:08 KW [id number] 03/18/25 11:10 Document 03/25/25 10:40 [id number] 03/25/25 10:41 Document 04/01/25 10:55 KW [id number] 04/01/25 10:58 Document 04/08/25 11:37 [id number] 04/08/25 11:41 03/18/25 03/25/25 04/01/25 11:08 10:40 10:55 Wound Care Center Nurse 3 #2 L Heel -Ulcer Cleansing Rinsed/ Irrigated with Saline -Other Dressing flushed gauze with nurse hat -Primary Dressing Covered/Secured with Dry Gauze & Dry Gauze & Dry Gauze & Roll Gauze, Roll Gauze, Roll Gauze, Secured with Secured with Secured with Tape Tape Tape #1 Sacral Cluster -Ulcer Cleansing rinse with Rinsed/ dakins dakins Irrigated with Saline -Negative Pressure Wound Therapy Continue Continue Continue -Pieces of Black Foam Inserted 1 1 1 -NPWT Application Charge NPWT & NPWT </= 50 sq NPWT </= 50 sq Debridement (nc cm ($) cm ($) ) -Setting (mmHg) 125 125 125 -Negative Pressure is Continuous Continuous Continuous LLE -Compression Wrap -Tubular Bandage Single Layer Single Layer -Size of Tubigrip Used Size D Size E -Size D ($) 0 -Size E ($) 2 -Other pt own tubigrip , medium compression Pain Scale: 0-10 Numeric Is Patient Pain Free? Yes Yes Yes WC - Visit Discharge Discharge Condition Stable Stable Stable Ambulatory Status Wheelchair Wheelchair Transportation Private Auto Private Auto Private Auto Accompanied by Medication Reconcilliation completed & No Yes No provided to patient/care provider Clinical Summary of Care Provided Yes Yes Yes Notes: uses scooter 04/08/25 11:37 Wound Care Center Nurse 3 #2 L Heel -Ulcer Cleansing WATER AROUND THE THERASKIN -Other Dressing FLUFF GAUZE IN HEEL HAT -Primary Dressing Covered/Secured with Dry Gauze & Roll Gauze, Secured with Tape #1 Sacral Cluster -Ulcer Cleansing -Negative Pressure Wound Therapy Continue -Pieces of Black Foam Inserted 1 -NPWT Application Charge NPWT & Debridement (nc ) -Setting (mmHg) 125 -Negative Pressure is Continuous LLE -Compression Wrap Lucas Wrap -Tubular Bandage Single Layer -Size of Tubigrip Used Size E -Size D ($) -Size E ($) 1 -Other LUCAS WRAP TO FOOT FOR PRESSURE, REMOVE TONIGHT Pain Scale: 0-10 Numeric Is Patient Pain Free? Yes WC - Visit Discharge Discharge Condition Stable Ambulatory Status Wheelchair Transportation Private Auto Accompanied by Medication Reconcilliation completed & No provided to patient/care provider Clinical Summary of Care Provided Yes Notes: Assessment/Plan Assessment/Plan (1) Stage 4 decubitus ulcer: CODE(S): L89.94 - Pressure ulcer of unspecified site, stage 4 QUALIFIERS: Pressure injury location: sacral region Qualified Code(s): L89.154 - Pressure ulcer of sacral region, stage 4 PLAN: Now stage 3 No debridement performed today Continue wound VAC 3 times per week (2) Diabetic foot ulcer: CODE(S): E11.621 - Type 2 diabetes mellitus with foot ulcer; L97.509 - Non-pressure chronic ulcer of other part of unspecified foot with unspecified severity (3) Pressure ulcer of left heel, stage 4: CODE(S): L89.624 - Pressure ulcer of left heel, stage 4 PLAN: I talked to the patient that the risks, benefits, and alternatives to reconstruction with dermal substitute and eventual skin grafting. He is not interested in skin grafting and would like to try a skin substitute such as there is skin first. Will continue TheraSkin. Procedure details: The wound was cleaned and debrided with a 7mm curette removing biofilm and debris (see above including bone biopsy) A 26 cm? TheraSkin was applied and trimmed to fit. The wound measured 4.5 x 3 cm and 0.1 cm deep. The TheraSkin was applied and Dermabond was used to keep it place on the skin edges. A wound veil (this time with Adaptic) was then applied with Steri-Strips and an ABD and tape Vascular surgery was consulted. Noncompressible arterial vessels at the ankles, but waveforms were reassuring. Given history of diabetes and arterial insufficiency, however, they have ordered a CTA with runoff to evaluate for focal stenosis. I talked to the patient and his about the CTA and they would like to defer this at this time as they have too much going on with their healthcare. TheraSkin was placed today Follow-up bone biopsy results (superficial bone biopsy) Continue strict pressure offloading with no pressure on the ulcer. Patient is will change the ABD and tape daily. Follow-up in 1 week for another treatment. They are happy with the plan
== END 2025-04-15 23:59 | disposition home or self-care (01) ==
LOC: WC 10:15
PROVIDERS: PCP Family Medicine; Referring Provider Family Medicine; Visit Provider Surgery Plastic and Reconstructive Surgery
DX: L89.624 Pressure ulcer of left heel, stage 4 (principal); L89.153 Pressure ulcer of sacral region, stage 3; L89.623 Pressure ulcer of left heel, stage 3; E11.621 Type 2 diabetes mellitus with foot ulcer; C91.10 Chronic lymphocytic leukemia of B-cell type not having achieved remission; Z86.718 Personal history of other venous thrombosis and embolism; C44.629 Squamous cell carcinoma of skin of left upper limb, including shoulder; Z86.19 Personal history of other infectious and parasitic diseases; M48.061 Spinal stenosis, lumbar region without neurogenic claudication
CPT/HCPCS: 11042; 15275; 17250; 87070; 87075; 87077; 87176; 87186; 87205; 88305; 88307; 88311; 97605; Q4121

== ENCOUNTER 2025-05-06 10:15 | Outpatient (RCR) | payer MEDICARE, SELFPAY ==
[2025-04-22 10:16] VITALS: BP 121/65; PULSE 74; RESP 18; TEMP 36.6
--- NOTE | 2025-04-22 11:45 | PN.PCM_ITS ---
History of Present Illness Date of Service: 04/22/25 Chief Complaint: Follow-up on buttocks right and left heel wounds that have been going on for months. History of Wound: Chief Complaint: Follow-up on buttocks right and left heel wounds that have been going on for months. 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 He has not walked in several years. He is able to stand up to perform transfers, but does not move his ankle joints. He lays on his chair most of the day. And has developed a sacral wound that he has been following at the wound care center for as well as a left calcaneal wound in the setting of a recent hospitalization this past year, both of which he has been following here at the wound center with various advanced practice providers. Wound culture of left heel ulcer from 08/08/24 positive for MDRO Pseudomonas aeruginosa. Referral to infectious disease for treatment s/p antibiotic regimen. MRI of Pelvis 08/16/24 - Sacral decubitus ulcer with sacrococcygeal osteomyelitis. Treated by infectious disease with long-term course of IV antibiotics. Progress of Wound: The sacral ulcer with bone palpable but covered with granulation tissue and is beefy pink. There is undermining present, which is stable. The perineal ulcer (skin tear proximal to sacral ulcer) remains healed. Left medial heel appears improved with pink ulcer bed and much less non viable tissue present. He is sleeping on the low air loss mattress. 10 December 2024: Patient reports that he has not had any vascular workup for the lower extremity. He has a history of a DVT in the left lower extremity in the remote history and remains on Eliquis for anticoagulation. He reports episodic swelling in the left lower extremity that appears to be worsening the condition of the wound. He is not having any shortness of breath. He is not having any systemic signs or symptoms of infection. 17 December 2024: Doing well with wound care (VAC dressings) which started this past Tuesday. They have an appointment for ABIs and US for evaluation of the lower extremity. He has not gotten his xray of the foot yet, but is planning to get that soon (discussed). Labs obtained 14 Dec 2024 A1C 6.7 Prealb 27 Alb 3.4 Subjective Subjective 07 January 2025: Imaging reviewed. No osteomyelitis on the xray of the foot. There were no DVT on venous study. Arterial study demonstrated noncompressible vessels 2/2 to significant calcific ations of the vasculature Patient has been doing well overall, however. Tolerating dressing changes. 21 January 2025: Doing well overall with dressing changes except there is been an odor coming from the sacral wound after the VAC changes, his would like us to look today. Patient has seen Dr. Farooq (heart doctor) this past week on 19 January 2025 and he discontinued his amiodarone and his blood thinner (patient has been regular with rate and rhythm). He has been off the blood thinner for greater than 48 hours now. Patient also has a follow-up of his ABIs with vascular surgery on 23 January 2025 (2 days from now) To assess need for intervention for increased blood flow to the foot wound. There is another area of concern in the left forearm today that the patient and his would like me to biopsy. It has been there for several months and growing. It is a scaly/scabby lesion on the left proximal dorsal forearm. Biopsy results (from biopsy on 07 January 2025) of the heel wound did not demonstrate any signs of malignancy. 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 This was discussed with the patient and his . Patient doing well overall and is tolerating the TheraSkin applications to the heel. Wound VAC dressing changes are going well as well 18 Feb 2025: Doing well overall. Tolerating theraskin. On the scheduled for excision of the SSC of the left forearm next week. 27 Feb 2025: Tolerating TheraSkin. No fevers chills. All questions answered about once his excision procedure for left forearm squamous cell carcinoma. Patient has been seeing his oncologist and has been getting infusions to increase his white blood cell counts and promote healing. 04 Mar 2025: Reviewed pathology with the patient and his at today's visit from the left forearm squamous cell carcinoma excision. It was negative for malignancy, margins were free from carcinoma. Patient tolerated the procedure well and is feeling well. No pain. No numbness in the forearm. No drainage or fevers chills. Patient here for the foot wound and the sacral wound is well. Reports excellent VAC changes and tolerance of the TheraSkin. 14 Mar 2025: Doing well overall. No appointment this past Tuesday secondary to and TheraSkin fell off from the heal on its own yesterday. There is notes there is scan ordered for today and it will be replaced on this coming Tuesday. 18 March 2025: Doing well overall. No significant change since last appoint. Endorses good dressing changes 25 March 2025: Doing well overall. No big changes. Tolerating TheraSkin treatments and VAC changes. 22 March 2025: Doing well overall. Tolerating TheraSkin 08 April 2025: Tolerating TheraSkin. No fevers chills or drainage. Reports improvement in the size of the sacral wound and persistent heel wound 22 April 2025: The patient is an 84-year-old male presenting with wound and osteomyelitis of the left heal and associated need for wound care. The osteomyelitis was identified through a culture that grew bacteria, indicating an infection in the bone. The patient has been on antibiotics for infection management, with four days remaining in the current course. Patient has been on amoxicillin and linezolid per infectious disease. He will have an appointment with them later this week. The patient has an open wound with granulation tissue, which is being monitored for healing progress. There is no exposed bone currently felt, suggesting some improvement in the wound condition. The wound care plan includes the potential use of Integra and a skin graft once the infection is controlled. Attestation: Documentation on this patient encounter was supported using ambient scribe technology/ voice AI technology. The patient consented to recording for the purpose of documenting the encounter. Provider reviewed content of the generated note prior to signature. Objective Data Objective Data Vital Signs: Vital Signs Temp Pulse Resp BP 97.8 F 74 18 121/65 H 04/22/25 10:16 04/22/25 10:16 04/22/25 10:16 04/22/25 10:16 Charges/Coding Visit Charges Office Visits / Consults: 42148 OV L4 Est 30min Physical Exam Narrative Sacral wound Stage 3, 1.5 x 2 cm and undermines approximately 1 cm medially and superiorly. No purulence/no exposed bone. Good granulation at the base of the wound, improving with the VAC Left lower extremity: Heel wound is 4.5 x 3 cm. No exposed bone today just some fibrinous exudate. Motor: 4 out of 5 hip flexion and extension bilaterally, 4 out of 5 knee flexion and extension bilaterally, 0 out of 5 foot plantarflexion and dorsiflexion. Sensation: No sensation to light touch on the feet. Consistent with peripheral neuropathy. Vascular: No palpable pulses but the feet are warm bilaterally. Lymph Lymphatic: no lymphadenopathy noted Lymphatic Narrative: No left axillary or left antecubital lymphadenopathy Cardio regular rate and regular rhythm Extremity Extremity Narrative: Left upper extremity Incision healed from SSC wide-local excision. Skin Skin Narrative: Left forearm Prineo tape removed. Incision is clean dry and intact and has healed nicely. No signs of recurrence of the squamous cell carcinoma. No healing issues Debridement Note Debridement Note No debridement was completed: No debridement was completed today Post-Debridement Measurements and Additional Note: Post-Debridement Measurements/Treatment - Nurse 1 - General Ulcer Assessment Start: 04/22/25 10:14 Freq: Status: Active Protocol: MELQUIADESEXRomel Activity Type Activity Date Activity User E-sign Co-sign Detail Recorded Client Recorded Date Recorded By Document 04/22/25 10:16 DL [id number] 04/22/25 10:29 DL 04/22/25 10:16 - Today's Visit Information Type of service Follow-up Visit (Physician/CLINICAL RESOURCE DIRECTOR ) Arrival Mode Wheelchair Transfer Assistance Manual Transfer Assist (Other) X1 Patient Identification Verified (Name & Yes ) Patient Requires Transmission-Based No Precautions Vital Signs Temperature (97.8 F-99.1 F) 97.8 F Temperature Source Temporal Pulse Rate (60-100) 74 Pulse Location Monitor Respiratory Rate (12-18) 18 Respiratory rate source Observation Blood Pressure (90/60-120/80) 121/65 H Blood Pressure Mean (mm Hg) 83 Source Monitor History Since Last Visit- (Skip if this is Patient's initial visit) Have you changed medications since your No last visit? Any new allergies or adverse reactions No Had a fall/change in ADL's that may No increase risk of falls Signs or symptoms of abuse and/or No neglect since last visit Have you been in the hospital since your No last visit? Has dressing in place as prescribed Yes Has compression in place as prescribed Yes Has offloadiing in place as prescribed Yes Experienced any changes in pain level or No management Pain Scale: 0-10 Numeric Is Patient Pain Free? Yes - Nurse 1 - General Ulcer Measurement Start: 04/22/25 10:14 Freq: Status: Active Protocol: Activity Type Activity Date Activity User E-sign Co-sign Detail Recorded Client Recorded Date Recorded By Document 04/22/25 10:16 WADE [id number] 04/22/25 10:29 DL 04/22/25 10:16 Wound Center Nurse 1 #2 L Heel -Current Size (cm) - Length 4.8 -Current Size (cm) - Width 2.8 -Current Size (cm) - Depth 0.1 -Total Square Cm 13.44 -Exudate Amt Medium -Exudate Type Serosanguineous -Wound Margin Distinct, Outline Attached -Granulation Amt Medium (34-66%) -Granulation Quality Red -Necrosis Amt Medium (34-66%) -Necrotic Tissue Type Adherent Slough -Structure Exposed N/A -Texture (Andreea-wound Skin Appearance) Scarring -Moisture (Andreea-wound Skin Appearance) Maceration -Color (Andreea-wound Skin Appearance) No Abnormality -Temperature (Andreea-wound Skin No Abnormality Appearance) (Pt Warm) -Tenderness on Palpation (Andreea-wound No Skin Appearance) -Ulcer Cleansing Soap and Water -Foul Odor after Cleansing No -Anesthetic Used 5% Lidocaine Gel #1 Sacral Cluster -Current Size (cm) - Length 1.8 -Current Size (cm) - Width 1.3 -Current Size (cm) - Depth 2 -Total Square Cm 2.34 -Maximum Distance #2 (cm) 2.4 -Circular Undermining Yes -Exudate Amt Medium -Exudate Type Serosanguineous -Wound Margin Thickened & Rolled Under -Granulation Amt Large (67-100%) -Granulation Quality Red -Necrosis Amt None Present (0 %) -Structure Exposed N/A -Texture (Andreea-wound Skin Appearance) Scarring -Moisture (Andreea-wound Skin Appearance) Maceration -Color (Andreea-wound Skin Appearance) No Abnormality -Temperature (Andreea-wound Skin No Abnormality Appearance) (Pt Warm) -Tenderness on Palpation (Andreea-wound No Skin Appearance) -Ulcer Cleansing Soap and Water -Foul Odor after Cleansing No -Anesthetic Used 5% Lidocaine Gel WC - Nurse 2 - General Ulcer CM Notes Start: 04/22/25 10:14 Freq: Status: Active Protocol: Activity Type Activity Date Activity User E-sign Co-sign Detail Recorded Client Recorded Date Recorded By Document 04/22/25 10:45 DL [id number] 04/22/25 10:52 DL 04/22/25 10:45 Wound Center Nurse 2 #2 L Heel -Time 10:40 -Correct Patient Yes -Correct Side, Site, Position Yes -Procedure Performed No -Wound/Ulcer Outcome Not Healed #1 Sacral Cluster -Time 10:40 -Correct Patient Yes -Correct Side, Site, Position Yes -Procedure Performed No -Post Debridement (cm) - Length 2.0 -Post Debridement (cm) - Width 1.5 -Post Debridement (cm) - Depth 1.0 -Total Square (Post) (cm) 3.00 -Area of Debridement (cm) - Length 2.0 -Area of Debridement (cm) - Width 1.5 -Total Square (Area) (cm) 3.00 -Tunneling Yes -Tunneling Position (O'clock) 12 -Tunneling Distance (cm) 1.0 -Undermining/Tunneling No -Circular Undermining No -Wound/Ulcer Outcome Not Healed -Ulcer Cleansing Rinsed/ Irrigated with Saline -Foul Odor after Cleansing No -Bioengineered Tissue No -Bleeding Controlled with Pressure -Treatment Response Procedure Tolerated Well Pain Scale: 0-10 Numeric Is Patient Pain Free? Yes - Nurse 3 - General Ulcer D/C NN Start: 04/22/25 10:14 Freq: Status: Active Protocol: Activity Type Activity Date Activity User E-sign Co-sign Detail Recorded Client Recorded Date Recorded By Document 04/22/25 11:06 [id number] 04/22/25 11:29 04/22/25 11:06 Wound Care Center Nurse 3 #2 L Heel -Other Dressing DAKINS MOISTED GAUZE -Primary Dressing Covered/Secured with Dry Gauze & Roll Gauze, Secured with Tape #1 Sacral Cluster -Negative Pressure Wound Therapy Continue -NPWT Application Charge NPWT </= 50 sq cm ($) -Setting (mmHg) 125 -Negative Pressure is Continuous Pain Scale: 0-10 Numeric Is Patient Pain Free? Yes - Visit Discharge Discharge Condition Stable Ambulatory Status Walker Transportation Private Auto Medication Reconcilliation completed & No provided to patient/care provider Clinical Summary of Care Provided Yes Assessment/Plan Assessment/Plan (1) Stage 4 decubitus ulcer: CODE(S): L89.94 - Pressure ulcer of unspecified site, stage 4 QUALIFIERS: Pressure injury location: sacral region Qualified Code(s): L89.154 - Pressure ulcer of sacral region, stage 4 PLAN: Now stage 3 No debridement performed today Continue wound VAC 3 times per week (2) Diabetic foot ulcer: CODE(S): E11.621 - Type 2 diabetes mellitus with foot ulcer; L97.509 - Non-pressure chronic ulcer of other part of unspecified foot with unspecified severity (3) Pressure ulcer of left heel, stage 4: CODE(S): L89.624 - Pressure ulcer of left heel, stage 4 PLAN: Vascular surgery was consulted. Noncompressible arterial vessels at the ankles, but waveforms were reassuring. Given history of diabetes and arterial insufficiency, however, they have ordered a CTA with runoff to evaluate for focal stenosis. I talked to the patient and his about the CTA and they would like to defer this at this time as they have too much going on with their healthcare. TheraSkin was deferred today per discussion with patient and his Plan for wet-to-dry dressings with Dakin's on the right heel for now. Follow-up with infectious disease. Continue wound VAC for the sacrum. I talked to the patient and his extensively about the heel and the sacrum. The heel is appearing much ship cleaner status post antibiotic and Mr. Mrs. Napoles interested in an attempt a more definitive management of the right lower e xtremity. I talked him about the option of debridement in the operating room followed by irrigating wound VAC followed by possible Integra placement and possible skin grafting. He is interested in this option as long as the skin graft is taken from the arm eventually, which I think is reasonable. The more I talked to him about the option for excision of the sacral wound at the same time with vera flow VAC and then possible delayed primary closure/flap reconstruction. Think this is a reasonable option. Patient and his are happy with this plan. I talked to the patient extensively about the risks of surgery, including bleeding, infection, damage to surrounding structures, poor scaring, surgical site dehiscence and wound formation, need for wound care, need for repeat operations, failure to obtain the desired result, failure of the skin graft/Integra, failure and general reconstruction (flap failure or dehiscence ), DVT/PE, and the risks of anesthesia including , including stroke (from low blood pressure/ischemia or clot). The benefits and alternatives of this surgery were also discussed. All of their questions were answered, and they agreed to proceed with surgery. CPT codes for insurance prior authorization are as follows: [id number], [id number], [id number], [id number], [id number]
[2025-05-06 10:59] VITALS: BP 133/76; RESP 18
--- NOTE | 2025-05-07 09:39 | WC ---
PHOTO 05/06/25 LEFT HEEL
--- NOTE | 2025-05-07 09:39 | WC ---
PHOTO 05/06/25 SACRUM
--- NOTE | 2025-05-07 11:15 | PN.PCM_ITS ---
History of Present Illness Date of Service: 05/06/25 Chief Complaint: Follow-up on buttocks right and left heel wounds that have been going on for months. History of Wound: Chief Complaint: Follow-up on buttocks right and left heel wounds that have been going on for months. 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 He has not walked in several years. He is able to stand up to perform transfers, but does not move his ankle joints. He lays on his chair most of the day. And has developed a sacral wound that he has been following at the wound care center for as well as a left calcaneal wound in the setting of a recent hospitalization this past year, both of which he has been following here at the wound center with various advanced practice providers. Wound culture of left heel ulcer from 08/08/24 positive for MDRO Pseudomonas aeruginosa. Referral to infectious disease for treatment s/p antibiotic regimen. MRI of Pelvis 08/16/24 - Sacral decubitus ulcer with sacrococcygeal osteomyelitis. Treated by infectious disease with long-term course of IV antibiotics. Progress of Wound: The sacral ulcer with bone palpable but covered with granulation tissue and is beefy pink. There is undermining present, which is stable. The perineal ulcer (skin tear proximal to sacral ulcer) remains healed. Left medial heel appears improved with pink ulcer bed and much less non viable tissue present. He is sleeping on the low air loss mattress. 10 December 2024: Patient reports that he has not had any vascular workup for the lower extremity. He has a history of a DVT in the left lower extremity in the remote history and remains on Eliquis for anticoagulation. He reports episodic swelling in the left lower extremity that appears to be worsening the condition of the wound. He is not having any shortness of breath. He is not having any systemic signs or symptoms of infection. 17 December 2024: Doing well with wound care (VAC dressings) which started this past Tuesday. They have an appointment for ABIs and US for evaluation of the lower extremity. He has not gotten his xray of the foot yet, but is planning to get that soon (discussed). Labs obtained 14 Dec 2024 A1C 6.7 Prealb 27 Alb 3.4 Subjective Subjective 07 January 2025: Imaging reviewed. No osteomyelitis on the xray of the foot. There were no DVT on venous study. Arterial study demonstrated noncompressible vessels 2/2 to significant calcific ations of the vasculature Patient has been doing well overall, however. Tolerating dressing changes. 21 January 2025: Doing well overall with dressing changes except there is been an odor coming from the sacral wound after the VAC changes, his would like us to look today. Patient has seen Dr. Farooq (heart doctor) this past week on 19 January 2025 and he discontinued his amiodarone and his blood thinner (patient has been regular with rate and rhythm). He has been off the blood thinner for greater than 48 hours now. Patient also has a follow-up of his ABIs with vascular surgery on 23 January 2025 (2 days from now) To assess need for intervention for increased blood flow to the foot wound. There is another area of concern in the left forearm today that the patient and his would like me to biopsy. It has been there for several months and growing. It is a scaly/scabby lesion on the left proximal dorsal forearm. Biopsy results (from biopsy on 07 January 2025) of the heel wound did not demonstrate any signs of malignancy. 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 This was discussed with the patient and his . Patient doing well overall and is tolerating the TheraSkin applications to the heel. Wound VAC dressing changes are going well as well 18 Feb 2025: Doing well overall. Tolerating theraskin. On the scheduled for excision of the SSC of the left forearm next week. 27 Feb 2025: Tolerating TheraSkin. No fevers chills. All questions answered about once his excision procedure for left forearm squamous cell carcinoma. Patient has been seeing his oncologist and has been getting infusions to increase his white blood cell counts and promote healing. 04 Mar 2025: Reviewed pathology with the patient and his at today's visit from the left forearm squamous cell carcinoma excision. It was negative for malignancy, margins were free from carcinoma. Patient tolerated the procedure well and is feeling well. No pain. No numbness in the forearm. No drainage or fevers chills. Patient here for the foot wound and the sacral wound is well. Reports excellent VAC changes and tolerance of the TheraSkin. 14 Mar 2025: Doing well overall. No appointment this past Tuesday secondary to and TheraSkin fell off from the heal on its own yesterday. There is notes there is scan ordered for today and it will be replaced on this coming Tuesday. 18 March 2025: Doing well overall. No significant change since last appoint. Endorses good dressing changes 25 March 2025: Doing well overall. No big changes. Tolerating TheraSkin treatments and VAC changes. 22 March 2025: Doing well overall. Tolerating TheraSkin 08 April 2025: Tolerating TheraSkin. No fevers chills or drainage. Reports improvement in the size of the sacral wound and persistent heel wound 22 April 2025: The patient is an 84-year-old male presenting with wound and osteomyelitis of the left heal and associated need for wound care. The osteomyelitis was identified through a culture that grew bacteria, indicating an infection in the bone. The patient has been on antibiotics for infection management, with four days remaining in the current course. Patient has been on amoxicillin and linezolid per infectious disease. He will have an appointment with them later this week. The patient has an open wound with granulation tissue, which is being monitored for healing progress. There is no exposed bone currently felt, suggesting some improvement in the wound condition. The wound care plan includes the potential use of Integra and a skin graft once the infection is controlled. Attestation: Documentation on this patient encounter was supported using ambient scribe technology/ voice AI technology. The patient consented to recording for the purpose of documenting the encounter. Provider reviewed content of the generated note prior to signature. CURRENT ENCOUNTER, 06 MAY 2025: The patient is an 84-year-old male presenting with chronic wounds on the left heel and sacrum. The left heel wound measures 4.5 cm by 2.6 cm and has no exposed bone, only exposed plantar fascia. The sacral wound is a stage 3 ulcer measuring 2 cm by 1.5 cm, also with no exposed bone. The patient reports that the wounds are healing, with home health nurses noting significant improvement over time. The patient has been receiving infusions, which may have contributed to the healing process. The patient has been advised against continued antibiotic use by the infectious disease physician due to potential risks outweighing benefits. The patient also experiences neuropathy, which is exacerbated by back issues, causing significant discomfort in the leg. The patient is considering steroid injections for back pain, although aware of potential impacts on wound healing (which was discussed at the visit today). The patient has a history of skin cancer diagnosed earlier this year, with surgery performed in February. ros: - Integumentary: Reports healing wounds on left heel and sacrum - Neurological: Reports neuropathy and leg discomfort due to back issues Attestation: Documentation on this patient encounter was supported using ambient scribe technology/ voice AI technology. The patient consented to recording for the purpose of documenting the encounter. Provider reviewed content of the generated note prior to signature. Objective Data Objective Data Vital Signs: Vital Signs Temp Pulse Resp BP O2 Del Method 97.8 F 74 18 133/76 H Room Air 04/22/25 10:16 04/22/25 10:16 05/06/25 10:59 05/06/25 10:59 05/06/25 10:59 Oxygen Delivery Method Room Air Charges/Coding Procedures Integumentary [id number]: [id number] Ginette musc/fascia 20 sq cm/< Physical Exam Narrative Sacral wound Stage 3, 1.5 x 2 cm and undermines approximately 1 cm medially and superiorly. No purulence/no exposed bone. Continued good granulation at the base of the wound, improving with the VAC Left lower extremity: Heel wound is 4.5 x 2.6 cm. No exposed bone today Motor: 4 out of 5 hip flexion and extension bilaterally, 4 out of 5 knee flexion and extension bilaterally, 0 out of 5 foot plantarflexion and dorsiflexion. Sensation: No sensation to light touch on the feet. Consistent with peripheral neuropathy. Vascular: No palpable pulses but the feet are warm bilaterally. Lymph Lymphatic: no lymphadenopathy noted Lymphatic Narrative: No left axillary or left antecubital lymphadenopathy Cardio regular rate and regular rhythm Extremity Extremity Narrative: Left upper extremity Incision healed from SSC wide-local excision. Skin Skin Narrative: Left forearm Prineo tape removed. Incision is clean dry and intact and has healed nicely. No signs of recurrence of the squamous cell carcinoma. No healing issues Debridement Note Debridement Note Wound debrided: Left heel ulcer Laterality: Left Wound Grade/Stage: Stage III Type of Debridement: Excisional debridement Anesthesia Used: 4% Lidocaine Solution Depth: to muscle (To the plantar fascia) Percentage of wound debrided: 100 Instrument Used: 7mm curette, Forceps and - (Scissors for sharp excision of the necrotic material) Tissue Removed: Fibrinous exudate and necrotic plantar fascia/debris Severity: Fat Layer Exposed (To the plantar fascia) Amount of bleeding with debridement: Moderate Bleeding Controlled with: Compression and gauze, Silver Nitrate and - (Pen Bovie electrocautery) Patient tolerated procedure: Patient tolerated procedure well Post-Debridement Measurements and Additional Note: Post-Debridement Measurements/Treatment SHAYLA Cotto Nurse 1 - General Ulcer Assessment Start: 04/22/25 10:14 Freq: Status: Active Protocol: CHEL Activity Type Activity Date Activity User E-sign Co-sign Detail Recorded Client Recorded Date Recorded By Document 04/22/25 10:16 DL [id number] 04/22/25 10:29 DL Document 05/06/25 10:59 KW [id number] 05/06/25 11:07 KW 04/22/25 05/06/25 10:16 10:59 SHAYLA - Today's Visit Information Type of service Follow-up Visit Follow-up Visit (Physician/THERMODYNAMICS PROFESSOR (Physician/THERMODYNAMICS PROFESSOR ) ) Arrival Mode Wheelchair Wheelchair Transfer Assistance Manual Transfer Assist (Other) X1 Accompanied by Patient Identification Verified (Name & Yes Yes ) Patient Requires Transmission-Based No Precautions Vital Signs Temperature (97.8 F-99.1 F) 97.8 F Temperature Source Temporal Temporal Pulse Rate (60-100) 74 Pulse Location Monitor Monitor Respiratory Rate (12-18) 18 18 Respiratory rate source Observation Observation Oxygen Delivery Method Room Air Blood Pressure (90/60-120/80) 121/65 H 133/76 H Blood Pressure Mean (mm Hg) 83 95 Source Monitor Monitor Position Sitting Blood Pressure Location Right Arm History Since Last Visit- (Skip if this is Patient's initial visit) Have you changed medications since your No No last visit? Any new allergies or adverse reactions No No Had a fall/change in ADL's that may No No increase risk of falls Signs or symptoms of abuse and/or No No neglect since last visit Have you been in the hospital since your No No last visit? Has dressing in place as prescribed Yes Yes Has compression in place as prescribed Yes Yes Has offloadiing in place as prescribed Yes Yes Experienced any changes in pain level or No No management Left Footwear Regular Shoe Right Footwear Surgical Shoe with pressure relief insole Pain Scale: 0-10 Numeric Is Patient Pain Free? Yes Yes SHAYLA - Nurse 1 - General Ulcer Measurement Start: 04/22/25 10:14 Freq: Status: Active Protocol: Activity Type Activity Date Activity User E-sign Co-sign Detail Recorded Client Recorded Date Recorded By Document 04/22/25 10:16 DL [id number] 04/22/25 10:29 DL Document 05/06/25 10:59 KW [id number] 05/06/25 11:07 KW 04/22/25 05/06/25 10:16 10:59 Wound Center Nurse 1 #2 L Heel -Current Size (cm) - Length 4.8 4.1 -Current Size (cm) - Width 2.8 3 -Current Size (cm) - Depth 0.1 0.1 -Total Square Cm 13.44 12.3 -Date of Last Picture (Recall this 05/06/25 field) -Exudate Amt Medium Large -Exudate Type Serosanguineous Serosanguineous -Wound Margin Distinct, Distinct, Outline Outline Attached Attached -Granulation Amt Medium (34-66%) Large (67-100%) -Granulation Quality [place] -Necrosis Amt Medium (34-66%) Small (1-33%) -Necrotic Tissue Type Adherent Slough Adherent Slough -Structure Exposed N/A -Texture (Andreea-wound Skin Appearance) Scarring Assessed -Moisture (Andreea-wound Skin Appearance) Maceration Assessed, Maceration -Color (Andreea-wound Skin Appearance) No Abnormality Assessed -Temperature (Andreea-wound Skin No Abnormality No Abnormality Appearance) (Pt Warm) (Pt Warm) -Tenderness on Palpation (Andreea-wound No Skin Appearance) -Ulcer Cleansing Soap and Water Soap and Water -Foul Odor after Cleansing No No -Anesthetic Used 5% Lidocaine 5% Lidocaine Gel Gel #1 Sacral Cluster -Current Size (cm) - Length 1.8 2.1 -Current Size (cm) - Width 1.3 1 -Current Size (cm) - Depth 2 2.1 -Total Square Cm 2.34 2.1 -Date of Last Picture (Recall this 05/06/25 field) -Tunneling Position (O'clock) 1 -Tunneling Distance (cm) 4.5 -Maximum Distance #2 (cm) 2.4 -Circular Undermining Yes -Exudate Amt Medium Medium -Exudate Type Serosanguineous Serosanguineous -Wound Margin Thickened & Distinct, Rolled Under Outline Attached -Granulation Amt Large (67-100%) Large (67-100%) -Granulation Quality [place] -Necrosis Amt None Present (0 %) -Structure Exposed N/A -Texture (Andreea-wound Skin Appearance) Scarring Assessed -Moisture (Andreea-wound Skin Appearance) Maceration Assessed -Color (Andreea-wound Skin Appearance) No Abnormality Assessed -Temperature (Andreea-wound Skin No Abnormality No Abnormality Appearance) (Pt Warm) (Pt Warm) -Tenderness on Palpation (Andreea-wound No No Skin Appearance) -Ulcer Cleansing Soap and Water Soap and Water -Foul Odor after Cleansing No No -Anesthetic Used 5% Lidocaine 5% Lidocaine Gel Gel WC - Nurse 2 - General Ulcer CM Notes Start: 04/22/25 10:14 Freq: Status: Active Protocol: Activity Type Activity Date Activity User E-sign Co-sign Detail Recorded Client Recorded Date Recorded By Document 04/22/25 10:45 DL [id number] 04/22/25 10:52 DL Undo 04/22/25 10:45 DL [employer] issue [id number] 04/25/25 14:48 DL Document 04/22/25 10:45 DS [id number] 04/22/25 17:07 DS Document 05/06/25 11:14 DS [id number] 05/06/25 11:20 DS 04/22/25 05/06/25 10:45 11:14 Wound Center Nurse 2 #2 L Heel -Time 10:40 11:14 -Correct Patient Yes Yes -Correct Side, Site, Position Yes Yes -Correct Procedure Yes -Procedure Performed No Yes -Type of Procedure Debridement -Clinical Debridement Muscle / Fascia -Tissue Removed Fascia -Post Debridement (cm) - Length 4.5 -Post Debridement (cm) - Width 2.6 -Post Debridement (cm) - Depth 0.1 -Total Square (Post) (cm) 11.70 -Area of Debridement (cm) - Length 4.5 -Area of Debridement (cm) - Width 2.3 -Total Square (Area) (cm) 10.35 -Tunneling No -Undermining/Tunneling No -Circular Undermining No -Wound/Ulcer Outcome Not Healed Not Healed -Ulcer Cleansing Rinsed/ Irrigated with Saline -Foul Odor after Cleansing No -Bleeding Controlled with Pressure,Silver Nitrate ($), Chemical Cauterization ( $) -Treatment Response Procedure Tolerated Well -Debridement - Muscle / Fascia, 1st Yes 20sq cm #1 Sacral Cluster -Time 10:40 11:15 -Correct Patient Yes Yes -Correct Side, Site, Position Yes Yes -Correct Procedure Yes -Procedure Performed No Yes -Type of Procedure Debridement -Clinical Debridement Muscle / Fascia -Tissue Removed Fascia -Post Debridement (cm) - Length 2.0 2.0 -Post Debridement (cm) - Width 1.5 1.5 -Post Debridement (cm) - Depth 1.0 2.0 -Total Square (Post) (cm) 3.00 3.00 -Area of Debridement (cm) - Length 2.0 2.0 -Area of Debridement (cm) - Width 1.5 1.5 -Total Square (Area) (cm) 3.00 3.00 -Tunneling Yes Yes -Tunneling Position (O'clock) 12 12 -Tunneling Distance (cm) 1.0 1.0 -Undermining/Tunneling No No -Circular Undermining No No -Wound/Ulcer Outcome Not Healed Not Healed -Ulcer Cleansing Rinsed/ Irrigated with Saline -Foul Odor after Cleansing No -Bioengineered Tissue No -Bleeding Controlled with Pressure -Treatment Response Procedure Tolerated Well -Debridement - Muscle / Fascia, 1st No 20sq cm Pain Scale: 0-10 Numeric Is Patient Pain Free? Yes Yes WC - Nurse 3 - General Ulcer D/C NN Start: 04/22/25 10:14 Freq: Status: Active Protocol: Activity Type Activity Date Activity User E-sign Co-sign Detail Recorded Client Recorded Date Recorded By Document 04/22/25 11:06 KW [id number] 04/22/25 11:29 KW Document 05/06/25 11:31 KW [id number] 05/06/25 11:33 KW Document 05/06/25 11:58 DL [id number] 05/06/25 12:00 DL 04/22/25 05/06/25 05/06/25 11:06 11:31 11:58 Wound Care Center Nurse 3 #2 L Heel -Ulcer Cleansing Rinsed/ Irrigated with Saline -Foul Odor after Cleansing No -Other Dressing DAKINS MOISTED dakins soaked Dakins GAUZE gauze -Primary Dressing Covered/Secured with Dry Gauze & Dry Gauze & Dry Gauze & Roll Gauze, Roll Gauze, Roll Gauze, Secured with Secured with Secured with Tape Tape Tape -Other Covering Fluffed gauze/ Tibigrip #1 Sacral Cluster -Ulcer Cleansing Dakins -Foul Odor after Cleansing No -Negative Pressure Wound Therapy Continue Continue -Pieces of Black Foam Inserted 1 -NPWT Application Charge NPWT </= 50 sq NPWT & cm ($) Debridement (nc ) -Setting (mmHg) 125 125 125 -Negative Pressure is Continuous Continuous Continuous -Regranex (If Applicable) Continue RLE -Other pt own tubigrip Treatment Response Procedure Tolerated Well Pain Scale: 0-10 Numeric Is Patient Pain Free? Yes Yes Yes WC - Visit Discharge Discharge Condition Stable Stable Stable Ambulatory Status Walker Wheelchair Wheelchair Transportation Private Auto Private Auto Private Auto Medication Reconcilliation completed & No No provided to patient/care provider Clinical Summary of Care Provided Yes Yes Facility Type Home Health Orders Sent Yes Assessment/Plan Assessment/Plan (1) Ulcer of foot: CODE(S): L97.509 - Non-pressure chronic ulcer of other part of unspecified foot with unspecified severity QUALIFIERS: Laterality: left Non-pressure ulcer stage: limited to breakdown of skin Qualified Code(s): L97.521 - Non-pressure chronic ulcer of other part of left foot limited to breakdown of skin (2) Nonhealing ulcer of heel: CODE(S): L97.409 - Non-pressure chronic ulcer of unspecified heel and midfoot with unspecified severity (3) Type 2 diabetes mellitus: CODE(S): E11.9 - Type 2 diabetes mellitus without complications QUALIFIERS: Diabetes mellitus long chain beamer insulin use: without [place] [facility] use Diabetes mellitus complication status: with circulatory complication Diabetes mellitus complication detail: with other circulatory complications Qualified Code(s): E11.59 - Type 2 diabetes mellitus with other circulatory complications (4) Obesity: CODE(S): E66.9 - Obesity, unspecified (5) Diabetic foot ulcer: CODE(S): E11.621 - Type 2 diabetes mellitus with foot ulcer; L97.509 - Non-pressure chronic ulcer of other part of unspecified foot with unspecified severity (6) Stage 4 decubitus ulcer: CODE(S): L89.94 - Pressure ulcer of unspecified site, stage 4 QUALIFIERS: Pressure injury location: sacral region Qualified Code(s): L89.154 - Pressure ulcer of sacral region, stage 4 PLAN: Now stage 3 No debridement performed today Continue wound VAC 3 times per week (7) Pressure ulcer of left heel, stage 4: CODE(S): L89.624 - Pressure ulcer of left heel, stage 4 PLAN: Vascular surgery was consulted. Noncompressible arterial vessels at the ankles, but waveforms were reassuring. Given history of diabetes and arterial insufficiency, however, they have ordered a CTA with runoff to evaluate for focal stenosis. I talked to the patient and his about the CTA and they would like to defer this at this time as they have too much going on with their healthcare. Plan for wet-to-dry dressings with Dakin's on the right heel for now. Continue wound VAC for the sacrum. After thorough discussion regarding reconstruction of the sacral and heel ulcers, patient was not interested in pursuing surgery. He changed his mind and would like to continue local wound care. I talked to him about pressure offloading and continued high-protein intake and sugar control. He believes that the wounds are getting smaller, at least for the foot, based on measurements. Plan for continued wound care in the wound care center per patient and his 's preference.
== END 2025-05-16 23:59 | disposition home or self-care (01) ==
LOC: WC 10:15
PROVIDERS: PCP Family Medicine; Referring Provider Family Medicine; Visit Provider Surgery Plastic and Reconstructive Surgery
DX: L89.624 Pressure ulcer of left heel, stage 4 (principal); L89.153 Pressure ulcer of sacral region, stage 3; E11.621 Type 2 diabetes mellitus with foot ulcer; C91.10 Chronic lymphocytic leukemia of B-cell type not having achieved remission; Z86.718 Personal history of other venous thrombosis and embolism; Z79.899 Other long term (current) drug therapy; C44.629 Squamous cell carcinoma of skin of left upper limb, including shoulder
CPT/HCPCS: 11043; 17250; 97605; 99213; 99214; G0463

== ENCOUNTER 2025-06-10 10:30 | Outpatient (RCR) | payer MEDICARE, SELFPAY ==
[2025-05-27 10:32] VITALS: BP 121/70; PULSE 71; RESP 18; TEMP 35.7
--- NOTE | 2025-05-27 13:29 | PN.PCM_ITS ---
History of Present Illness Date of Service: 05/27/25 Chief Complaint: Follow-up on buttocks right and left heel wounds that have been going on for months. History of Wound: Chief Complaint: Follow-up on buttocks right and left heel wounds that have been going on for months. 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 He has not walked in several years. He is able to stand up to perform transfers, but does not move his ankle joints. He lays on his chair most of the day. And has developed a sacral wound that he has been following at the wound care center for as well as a left calcaneal wound in the setting of a recent hospitalization this past year, both of which he has been following here at the wound center with various advanced practice providers. Wound culture of left heel ulcer from 08/08/24 positive for MDRO Pseudomonas aeruginosa. Referral to infectious disease for treatment s/p antibiotic regimen. MRI of Pelvis 08/16/24 - Sacral decubitus ulcer with sacrococcygeal osteomyelitis. Treated by infectious disease with long-term course of IV antibiotics. Progress of Wound: The sacral ulcer with bone palpable but covered with granulation tissue and is beefy pink. There is undermining present, which is stable. The perineal ulcer (skin tear proximal to sacral ulcer) remains healed. Left medial heel appears improved with pink ulcer bed and much less non viable tissue present. He is sleeping on the low air loss mattress. 10 December 2024: Patient reports that he has not had any vascular workup for the lower extremity. He has a history of a DVT in the left lower extremity in the remote history and remains on Eliquis for anticoagulation. He reports episodic swelling in the left lower extremity that appears to be worsening the condition of the wound. He is not having any shortness of breath. He is not having any systemic signs or symptoms of infection. 17 December 2024: Doing well with wound care (VAC dressings) which started this past Tuesday. They have an appointment for ABIs and US for evaluation of the lower extremity. He has not gotten his xray of the foot yet, but is planning to get that soon (discussed). Labs obtained 14 Dec 2024 A1C 6.7 Prealb 27 Alb 3.4 Subjective Subjective 07 January 2025: Imaging reviewed. No osteomyelitis on the xray of the foot. There were no DVT on venous study. Arterial study demonstrated noncompressible vessels 2/2 to significant calcific ations of the vasculature Patient has been doing well overall, however. Tolerating dressing changes. 21 January 2025: Doing well overall with dressing changes except there is been an odor coming from the sacral wound after the VAC changes, his would like us to look today. Patient has seen Dr. Farooq (heart doctor) this past week on 19 January 2025 and he discontinued his amiodarone and his blood thinner (patient has been regular with rate and rhythm). He has been off the blood thinner for greater than 48 hours now. Patient also has a follow-up of his ABIs with vascular surgery on 23 January 2025 (2 days from now) To assess need for intervention for increased blood flow to the foot wound. There is another area of concern in the left forearm today that the patient and his would like me to biopsy. It has been there for several months and growing. It is a scaly/scabby lesion on the left proximal dorsal forearm. Biopsy results (from biopsy on 07 January 2025) of the heel wound did not demonstrate any signs of malignancy. 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 This was discussed with the patient and his . Patient doing well overall and is tolerating the TheraSkin applications to the heel. Wound VAC dressing changes are going well as well 18 Feb 2025: Doing well overall. Tolerating theraskin. On the scheduled for excision of the SSC of the left forearm next week. 27 Feb 2025: Tolerating TheraSkin. No fevers chills. All questions answered about once his excision procedure for left forearm squamous cell carcinoma. Patient has been seeing his oncologist and has been getting infusions to increase his white blood cell counts and promote healing. 04 Mar 2025: Reviewed pathology with the patient and his at today's visit from the left forearm squamous cell carcinoma excision. It was negative for malignancy, margins were free from carcinoma. Patient tolerated the procedure well and is feeling well. No pain. No numbness in the forearm. No drainage or fevers chills. Patient here for the foot wound and the sacral wound is well. Reports excellent VAC changes and tolerance of the TheraSkin. 14 Mar 2025: Doing well overall. No appointment this past Tuesday secondary to and TheraSkin fell off from the heal on its own yesterday. There is notes there is scan ordered for today and it will be replaced on this coming Tuesday. 18 March 2025: Doing well overall. No significant change since last appoint. Endorses good dressing changes 25 March 2025: Doing well overall. No big changes. Tolerating TheraSkin treatments and VAC changes. 22 March 2025: Doing well overall. Tolerating TheraSkin 08 April 2025: Tolerating TheraSkin. No fevers chills or drainage. Reports improvement in the size of the sacral wound and persistent heel wound 22 April 2025: The patient is an 84-year-old male presenting with wound and osteomyelitis of the left heal and associated need for wound care. The osteomyelitis was identified through a culture that grew bacteria, indicating an infection in the bone. The patient has been on antibiotics for infection management, with four days remaining in the current course. Patient has been on amoxicillin and linezolid per infectious disease. He will have an appointment with them later this week. The patient has an open wound with granulation tissue, which is being monitored for healing progress. There is no exposed bone currently felt, suggesting some improvement in the wound condition. The wound care plan includes the potential use of Integra and a skin graft once the infection is controlled. Attestation: Documentation on this patient encounter was supported using ambient scribe technology/ voice AI technology. The patient consented to recording for the purpose of documenting the encounter. Provider reviewed content of the generated note prior to signature. 06 MAY 2025: The patient is an 84-year-old male presenting with chronic wounds on the left heel and sacrum. The left heel wound measures 4.5 cm by 2.6 cm and has no exposed bone, only exposed plantar fascia. The sacral wound is a stage 3 ulcer measuring 2 cm by 1.5 cm, also with no exposed bone. The patient reports that the wounds are healing, with home health nurses noting significant improvement over time. The patient has been receiving infusions, which may have contributed to the healing process. The patient has been advised against continued antibiotic use by the infectious disease physician due to potential risks outweighing benefits. The patient also experiences neuropathy, which is exacerbated by back issues, causing significant discomfort in the leg. The patient is considering steroid injections for back pain, although aware of potential impacts on wound healing (which was discussed at the visit today). The patient has a history of skin cancer diagnosed earlier this year, with surgery performed in February. ros: - Integumentary: Reports healing wounds on left heel and sacrum - Neurological: Reports neuropathy and leg discomfort due to back issues Attestation: Documentation on this patient encounter was supported using ambient scribe technology/ voice AI technology. The patient consented to recording for the purpose of documenting the encounter. Provider reviewed content of the generated note prior to signature. CURRENT ENCOUNTER, 27 May 2025: Doing well overall. Reports that the heal wound seems smaller. Objective Data Objective Data Vital Signs: Vital Signs Temp Pulse Resp BP O2 Del Method 96.2 F L 71 18 121/70 H Room Air 05/27/25 10:32 05/27/25 10:32 05/27/25 10:32 05/27/25 10:32 05/27/25 10:32 Oxygen Delivery Method Room Air Charges/Coding Procedures Integumentary 111xxx-113xx: [id number] Ginette subq tissue 20 sq cm/< Physical Exam Narrative Sacral wound Stage 3, 1.5 x 2 cm and undermines approximately 1 cm medially and superiorly. No purulence/no exposed bone. Good granulation tissue at the base. Left lower extremity: Heel wound is 4.5 x 2.5 cm. No exposed bone today. Healthy granulation tissue throughout. Motor: 4 out of 5 hip flexion and extension bilaterally, 4 out of 5 knee flexion and extension bilaterally, 0 out of 5 foot plantarflexion and dorsiflexion. Sensation: No sensation to light touch on the feet. Consistent with peripheral neuropathy. Vascular: No palpable pulses but the feet are warm bilaterally. Lymph Lymphatic: no lymphadenopathy noted Lymphatic Narrative: No left axillary or left antecubital lymphadenopathy Cardio regular rate and regular rhythm Extremity Extremity Narrative: Left upper extremity Incision healed from SSC wide-local excision. Skin Skin Narrative: Left forearm Prineo tape removed. Incision is clean dry and intact and has healed nicely. No signs of recurrence of the squamous cell carcinoma. No healing issues Debridement Note Debridement Note Wound debrided: Left heal ulcer Laterality: Left Wound Grade/Stage: 3 Type of Debridement: Excisional debridement Anesthesia Used: 4% Lidocaine Solution Depth: in the subcutaneous layer Percentage of wound debrided: 100 Instrument Used: 7mm curette, Forceps and - (and scissors for sharp excision ) Tissue Removed: Fibrinous exudate and biofilm Severity: Fat Layer Exposed Amount of bleeding with debridement: Moderate Bleeding Controlled with: Compression and gauze Patient tolerated procedure: Patient tolerated procedure well Post-Debridement Measurements and Additional Note: Post-Debridement Measurements/Treatment WC - Nurse 1 - General Ulcer Assessment Start: 05/27/25 10:31 Freq: Status: Active Protocol: CHEL Activity Type Activity Date Activity User E-sign Co-sign Detail Recorded Client Recorded Date Recorded By Document 05/27/25 10:32 KW [id number] 05/27/25 10:47 KW 05/27/25 10:32 WC - Today's Visit Information Type of service Follow-up Visit (Physician/CLINICAL RESOURCE NURSE ) Arrival Mode Wheelchair Accompanied by Patient Identification Verified (Name & Yes ) Vital Signs Temperature (97.8 F-99.1 F) 96.2 F L Temperature Source Temporal Pulse Rate (60-100) 71 Pulse Location Monitor Respiratory Rate (12-18) 18 Respiratory rate source Observation Oxygen Delivery Method Room Air Blood Pressure (90/60-120/80) 121/70 H Blood Pressure Mean (mm Hg) 87 Source Monitor Position Sitting Blood Pressure Location Right Arm History Since Last Visit- (Skip if this is Patient's initial visit) Have you changed medications since your No last visit? Any new allergies or adverse reactions No Had a fall/change in ADL's that may No increase risk of falls Signs or symptoms of abuse and/or No neglect since last visit Have you been in the hospital since your No last visit? Has dressing in place as prescribed Yes Has compression in place as prescribed Yes Has offloadiing in place as prescribed N/A Experienced any changes in pain level or No management Left Footwear Surgical Shoe with pressure relief insole Right Footwear Regular Shoe Pain Scale: 0-10 Numeric Is Patient Pain Free? No - Nurse 1 - General Ulcer Measurement Start: 05/27/25 10:31 Freq: Status: Active Protocol: Activity Type Activity Date Activity User E-sign Co-sign Detail Recorded Client Recorded Date Recorded By Document 05/27/25 10:32 KW [id number] 05/27/25 10:47 KW 05/27/25 10:32 Wound Center Nurse 1 #2 L Heel -Current Size (cm) - Length 4 -Current Size (cm) - Width 3 -Current Size (cm) - Depth 0.1 -Total Square Cm 12 -Date of Last Picture (Recall this 05/27/25 field) -Exudate Amt Large -Exudate Type Serosanguineous -Wound Margin Distinct, Outline Attached -Granulation Amt Large (67-100%) -Granulation Quality Red -Necrosis Amt Small (1-33%) -Necrotic Tissue Type Adherent Slough -Texture (Andreea-wound Skin Appearance) Assessed -Moisture (Andreea-wound Skin Appearance) Assessed -Color (Andreea-wound Skin Appearance) Assessed -Temperature (Andreea-wound Skin No Abnormality Appearance) (Pt Warm) -Tenderness on Palpation (Andreea-wound No Skin Appearance) -Ulcer Cleansing Soap and Water -Foul Odor after Cleansing No -Anesthetic Used 5% Lidocaine Gel #1 Sacral Cluster -Current Size (cm) - Length 2.7 -Current Size (cm) - Width 1.2 -Current Size (cm) - Depth 2.8 -Total Square Cm 3.24 -Undermining/Tunneling Yes -Undermining/Tunneling Starts (O'clock 12 ) -Undermining/Tunneling Ends (O'clock) 4 -Maximum Distance (cm) 4 -Exudate Amt Large -Exudate Type Serosanguineous -Wound Margin Thickened -Granulation Amt Large (67-100%) -Granulation Quality Cooter -Texture (Andreea-wound Skin Appearance) Assessed -Moisture (Andreea-wound Skin Appearance) No Abnormality, Maceration -Color (Andreea-wound Skin Appearance) Assessed -Temperature (Andreea-wound Skin No Abnormality Appearance) (Pt Warm) -Tenderness on Palpation (Andreea-wound No Skin Appearance) -Ulcer Cleansing Soap and Water -Foul Odor after Cleansing No -Anesthetic Used 5% Lidocaine Gel WC - Nurse 2 - General Ulcer CM Notes Start: 05/27/25 10:31 Freq: Status: Active Protocol: Activity Type Activity Date Activity User E-sign Co-sign Detail Recorded Client Recorded Date Recorded By Document 05/27/25 10:50 MARK ANTHONY [id number] 05/27/25 10:55 MARK ANTHONY 05/27/25 10:50 Wound Center Nurse 2 #2 L Heel -Time 10:50 -Correct Patient Yes -Correct Side, Site, Position Yes -Correct Procedure Yes -Procedure Performed Yes -Type of Procedure Debridement -Clinical Debridement Subcutaneous -Tissue Removed Subcutaneous -Post Debridement (cm) - Length 4.5 -Post Debridement (cm) - Width 2.5 -Post Debridement (cm) - Depth 0.2 -Total Square (Post) (cm) 11.25 -Area of Debridement (cm) - Length 4.5 -Area of Debridement (cm) - Width 2.5 -Total Square (Area) (cm) 11.25 -Tunneling No -Undermining/Tunneling No -Circular Undermining No -Wound/Ulcer Outcome Not Healed -Ulcer Cleansing Rinsed/ Irrigated with Saline -Foul Odor after Cleansing No -Bioengineered Tissue No -Bleeding Controlled with Pressure -Treatment Response Procedure Tolerated Well -Offloading No -Debridement - Subq, 1st 20sq cm Yes #1 Sacral Cluster -Time 10:51 -Correct Patient Yes -Correct Side, Site, Position No -Correct Procedure No -Procedure Performed No -Tunneling No -Undermining/Tunneling No -Circular Undermining No -Wound/Ulcer Outcome Not Healed -Ulcer Cleansing Rinsed/ Irrigated with Saline -Foul Odor after Cleansing No -Bioengineered Tissue No -Bleeding Controlled with Pressure -Treatment Response Procedure Tolerated Well -Offloading No Pain Scale: 0-10 Numeric Is Patient Pain Free? Yes - Nurse 3 - General Ulcer D/C NN Start: 05/27/25 10:31 Freq: Status: Active Protocol: Activity Type Activity Date Activity User E-sign Co-sign Detail Recorded Client Recorded Date Recorded By Document 05/27/25 11:12 TIM [id number] 05/27/25 11:13 TIM 05/27/25 11:12 Wound Care Center Nurse 3 #2 L Heel -Primary Dressing Applied Promogran Deirdre Matter -Primary Dressing Covered/Secured with Dry Gauze & Roll Gauze, Secured with Tape -Promogran Deirdre Matter 2 #1 Sacral Cluster -Other Dressing SALINE -Primary Dressing Covered/Secured with Dry Gauze, Secured with Tape Pain Scale: 0-10 Numeric Is Patient Pain Free? Yes - Visit Discharge Discharge Condition Stable Ambulatory Status Wheelchair Transportation Private Auto Accompanied by Medication Reconcilliation completed & No provided to patient/care provider Clinical Summary of Care Provided Yes Assessment/Plan Assessment/Plan (1) Ulcer of foot: CODE(S): L97.509 - Non-pressure chronic ulcer of other part of unspecified foot with unspecified severity QUALIFIERS: Laterality: left Non-pressure ulcer stage: limited to breakdown of skin Qualified Code(s): L97.521 - Non-pressure chronic ulcer of other part of left foot limited to breakdown of skin PLAN: Deirdre (collagen/silver) dressing changes daily F/u in 2 weeks to check on progress. Discussed pressure offloading Continue high protein diet Discussed skin grafting option and he is not interested at this time. Albumen 3.4 in Nov 2024 Will consider rechecking protein labs next visit (2) Nonhealing ulcer of heel: CODE(S): L97.409 - Non-pressure chronic ulcer of unspecified heel and midfoot with unspecified severity (3) Type 2 diabetes mellitus: CODE(S): E11.9 - Type 2 diabetes mellitus without complications QUALIFIERS: Diabetes mellitus exterminator helper termite insulin use: without exterminator helper termite use Diabetes mellitus complication status: with circulatory complication Diabetes mellitus complication detail: with other circulatory complications Qualified Code(s): E11.59 - Type 2 diabetes mellitus with other circulatory complications (4) Obesity: CODE(S): E66.9 - Obesity, unspecified (5) Diabetic foot ulcer: CODE(S): E11.621 - Type 2 diabetes mellitus with foot ulcer; L97.509 - Non-pressure chronic ulcer of other part of unspecified foot with unspecified severity (6) Sacral decubitus ulcer, stage III: CODE(S): L89.153 - Pressure ulcer of sacral region, stage 3 PLAN: Switch to wet-to-dry dressings three times per day Discussed again options for wash out and eventual flap closure of the wound, but patient still not interested in this surgery. I talked to him about the risks, benefits,and alternatives of flap surgery.
--- NOTE | 2025-05-28 09:21 | WC ---
PHOTO-LEFT HEEL 05/27/25
--- NOTE | 2025-05-28 09:22 | WC ---
PHOTO-SACRUM 05/27/25
[2025-06-10 10:36] VITALS: BP 125/62; PULSE 71; RESP 18; TEMP 36
--- NOTE | 2025-06-10 11:21 | LES_PTH ---
PATIENT: BRANDY LOMELI LOC: U#:[id number] AGE/SX: 84/M ROOM: RE06/10/[address]: Dr. Jeevan Sewell MD : [id number] BED: DIS: 06/16/2025 SPEC #: [id number] RECD: 06/10/25 15:02 STATUS: SHAE ILLIA #: [id number] DAMIAN: 06/10/25 11:[address]: Jeevan Sewell DEPT: SURGICAL PATHOLOGY RECD BY: Vimal Mccain ENTERED: 06/11/25 09:13 SP TYPE: Lesion OTHR DR: Dr. Matt Flores, Tissues: A - Sacrum, NOS Procedures: Surgery Specimen Level IV HEADER OPERATION: Tissue biopsy from sacral ulcer PRE-OP DIAGNOSIS: Non-healing ulcer sacrum, history of osteomyelitis TISSUE SUBMITTED: A- Sacral biopsy MICROSCOPIC DIAGNOSIS A. Skin, sacrum, biopsy: Epidermal hyperplasia with hyperkeratosis, focal ulceration, and features suggestive of lichen simplex chronicus. MICROSCOPIC DESCRIPTION Slides are reviewed. GROSS DESCRIPTION A. Received in formalin labeled with the patient's name and date of . Designated as sacral ulcer biopsy is a 0.8 x 0.7 cm irregular portion of hollins skin, devoid of orientation and excised to a maximum depth of 0.2 cm. The epidermal surface is focally friable and peeling. The resection margin is inked black and the specimen is serially sectioned. Entirely submitted in 1 cassette. [place] 06/11/2025 CPT:08699
--- NOTE | 2025-06-10 15:53 | PN.PCM_ITS ---
History of Present Illness Date of Service: 06/10/25 Chief Complaint: Follow-up on buttocks right and left heel wounds that have been going on for months. History of Wound: Chief Complaint: Follow-up on buttocks right and left heel wounds that have been going on for months. 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 He has not walked in several years. He is able to stand up to perform transfers, but does not move his ankle joints. He lays on his chair most of the day. And has developed a sacral wound that he has been following at the wound care center for as well as a left calcaneal wound in the setting of a recent hospitalization this past year, both of which he has been following here at the wound center with various advanced practice providers. Wound culture of left heel ulcer from 08/08/24 positive for MDRO Pseudomonas aeruginosa. Referral to infectious disease for treatment s/p antibiotic regimen. MRI of Pelvis 08/16/24 - Sacral decubitus ulcer with sacrococcygeal osteomyelitis. Treated by infectious disease with long-term course of IV antibiotics. Progress of Wound: The sacral ulcer with bone palpable but covered with granulation tissue and is beefy pink. There is undermining present, which is stable. The perineal ulcer (skin tear proximal to sacral ulcer) remains healed. Left medial heel appears improved with pink ulcer bed and much less non viable tissue present. He is sleeping on the low air loss mattress. 10 December 2024: Patient reports that he has not had any vascular workup for the lower extremity. He has a history of a DVT in the left lower extremity in the remote history and remains on Eliquis for anticoagulation. He reports episodic swelling in the left lower extremity that appears to be worsening the condition of the wound. He is not having any shortness of breath. He is not having any systemic signs or symptoms of infection. 17 December 2024: Doing well with wound care (VAC dressings) which started this past Tuesday. They have an appointment for ABIs and US for evaluation of the lower extremity. He has not gotten his xray of the foot yet, but is planning to get that soon (discussed). Labs obtained 14 Dec 2024 A1C 6.7 Prealb 27 Alb 3.4 Subjective Subjective 07 January 2025: Imaging reviewed. No osteomyelitis on the xray of the foot. There were no DVT on venous study. Arterial study demonstrated noncompressible vessels 2/2 to significant calcific ations of the vasculature Patient has been doing well overall, however. Tolerating dressing changes. 21 January 2025: Doing well overall with dressing changes except there is been an odor coming from the sacral wound after the VAC changes, his would like us to look today. Patient has seen Dr. Farooq (heart doctor) this past week on 19 January 2025 and he discontinued his amiodarone and his blood thinner (patient has been regular with rate and rhythm). He has been off the blood thinner for greater than 48 hours now. Patient also has a follow-up of his ABIs with vascular surgery on 23 January 2025 (2 days from now) To assess need for intervention for increased blood flow to the foot wound. There is another area of concern in the left forearm today that the patient and his would like me to biopsy. It has been there for several months and growing. It is a scaly/scabby lesion on the left proximal dorsal forearm. Biopsy results (from biopsy on 07 January 2025) of the heel wound did not demonstrate any signs of malignancy. 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 This was discussed with the patient and his . Patient doing well overall and is tolerating the TheraSkin applications to the heel. Wound VAC dressing changes are going well as well 18 Feb 2025: Doing well overall. Tolerating theraskin. On the scheduled for excision of the SSC of the left forearm next week. 27 Feb 2025: Tolerating TheraSkin. No fevers chills. All questions answered about once his excision procedure for left forearm squamous cell carcinoma. Patient has been seeing his oncologist and has been getting infusions to increase his white blood cell counts and promote healing. 04 Mar 2025: Reviewed pathology with the patient and his at today's visit from the left forearm squamous cell carcinoma excision. It was negative for malignancy, margins were free from carcinoma. Patient tolerated the procedure well and is feeling well. No pain. No numbness in the forearm. No drainage or fevers chills. Patient here for the foot wound and the sacral wound is well. Reports excellent VAC changes and tolerance of the TheraSkin. 14 Mar 2025: Doing well overall. No appointment this past Tuesday secondary to and TheraSkin fell off from the heal on its own yesterday. There is notes there is scan ordered for today and it will be replaced on this coming Tuesday. 18 March 2025: Doing well overall. No significant change since last appoint. Endorses good dressing changes 25 March 2025: Doing well overall. No big changes. Tolerating TheraSkin treatments and VAC changes. 22 March 2025: Doing well overall. Tolerating TheraSkin 08 April 2025: Tolerating TheraSkin. No fevers chills or drainage. Reports improvement in the size of the sacral wound and persistent heel wound 22 April 2025: The patient is an 84-year-old male presenting with wound and osteomyelitis of the left heal and associated need for wound care. The osteomyelitis was identified through a culture that grew bacteria, indicating an infection in the bone. The patient has been on antibiotics for infection management, with four days remaining in the current course. Patient has been on amoxicillin and linezolid per infectious disease. He will have an appointment with them later this week. The patient has an open wound with granulation tissue, which is being monitored for healing progress. There is no exposed bone currently felt, suggesting some improvement in the wound condition. The wound care plan includes the potential use of Integra and a skin graft once the infection is controlled. Attestation: Documentation on this patient encounter was supported using ambient scribe technology/ voice AI technology. The patient consented to recording for the purpose of documenting the encounter. Provider reviewed content of the generated note prior to signature. 06 MAY 2025: The patient is an 84-year-old male presenting with chronic wounds on the left heel and sacrum. The left heel wound measures 4.5 cm by 2.6 cm and has no exposed bone, only exposed plantar fascia. The sacral wound is a stage 3 ulcer measuring 2 cm by 1.5 cm, also with no exposed bone. The patient reports that the wounds are healing, with home health nurses noting significant improvement over time. The patient has been receiving infusions, which may have contributed to the healing process. The patient has been advised against continued antibiotic use by the infectious disease physician due to potential risks outweighing benefits. The patient also experiences neuropathy, which is exacerbated by back issues, causing significant discomfort in the leg. The patient is considering steroid injections for back pain, although aware of potential impacts on wound healing (which was discussed at the visit today). The patient has a history of skin cancer diagnosed earlier this year, with surgery performed in February. ros: - Integumentary: Reports healing wounds on left heel and sacrum - Neurological: Reports neuropathy and leg discomfort due to back issues Attestation: Documentation on this patient encounter was supported using ambient scribe technology/ voice AI technology. The patient consented to recording for the purpose of documenting the encounter. Provider reviewed content of the generated note prior to signature. 27 May 2025: Doing well overall. Reports that the heal wound seems smaller. CURRENT ENCOUNTER, 10 June 2025: Discussed the extensive undermining of the sacral wound. There is no exposed bone but discussed MRI and nutrition labs in anticipation for potential surgery as the patient is more willing to potentially go along with this plan as we are seeing limited improvement. As for the foot wound, patient continues the Dierdre dressing changes which seem to be helping. No exposed bone. Wound is smaller Objective Data Objective Data Vital Signs: Vital Signs Temp Pulse Resp BP O2 Del Method 96.8 F L 71 18 125/62 H Room Air 06/10/25 10:36 06/10/25 10:36 06/10/25 10:36 06/10/25 10:36 06/10/25 10:36 Oxygen Delivery Method Room Air Charges/Coding Procedures Integumentary 111xxx-113xx: [id number] Ginette subq tissue 20 sq cm/< Add On Codes: 07890 Ginette subq tissue add-on Physical Exam Narrative Sacral wound Stage 3 1.5 x 2 cm and undermines approximately about 2.5 cm medially and superiorly. No purulence/no exposed bone. Good granulation tissue at the base. Left lower extremity: Heel wound is 4.3 x 2.5 cm. No exposed bone today. Healthy granulation tissue throughout. Motor: 4 out of 5 hip flexion and extension bilaterally, 4 out of 5 knee flexion and extension bilaterally, 0 out of 5 foot plantarflexion and dorsiflexion. Sensation: No sensation to light touch on the feet. Consistent with peripheral neuropathy. Vascular: No palpable pulses but the feet are warm bilaterally. Lymph Lymphatic: no lymphadenopathy noted Lymphatic Narrative: No left axillary or left antecubital lymphadenopathy Cardio regular rate and regular rhythm Extremity Extremity Narrative: Left upper extremity Incision healed from SSC wide-local excision. Skin Skin Narrative: Left forearm Prineo tape removed. Incision is clean dry and intact and has healed nicely. No signs of recurrence of the squamous cell carcinoma. No healing issues Debridement Note Debridement Note Wound debrided: Heal wound Laterality: Left Wound Grade/Stage: 3 Type of Debridement: Excisional debridement Anesthesia Used: 4% Lidocaine Solution Depth: in the subcutaneous layer Percentage of wound debrided: 100 Instrument Used: 7mm curette, Forceps and - (Scissors for sharp excision ) Tissue Removed: Fibrinous exudate Severity: Fat Layer Exposed Amount of bleeding with debridement: Moderate Bleeding Controlled with: Compression and gauze Patient tolerated procedure: Patient tolerated procedure well Post-Debridement Measurements and Additional Note: Post-Debridement Measurements/Treatment WC - Nurse 1 - General Ulcer Assessment Start: 05/27/25 10:31 Freq: Status: Active Protocol: CHEL Activity Type Activity Date Activity User E-sign Co-sign Detail Recorded Client Recorded Date Recorded By Document 05/27/25 10:32 Colibri Heart Valve [id number] 05/27/25 10:47 KW Document 06/10/25 10:36 Colibri Heart Valve [id number] 06/10/25 10:44 KW 05/27/25 06/10/25 10:32 10:36 - Today's Visit Information Type of service Follow-up Visit (Physician/PHYSICIAN CHIEF OF PATHOLOGY ) Arrival Mode Wheelchair Accompanied by Patient Identification Verified (Name & Yes ) Vital Signs Temperature (97.8 F-99.1 F) 96.2 F L 96.8 F L Temperature Source Temporal Temporal Pulse Rate (60-100) 71 71 Pulse Location Monitor Monitor Respiratory Rate (12-18) 18 18 Respiratory rate source Observation Observation Oxygen Delivery Method Room Air Room Air Blood Pressure (90/60-120/80) 121/70 H 125/62 H Blood Pressure Mean (mm Hg) 87 83 Source Monitor Monitor Position Sitting Semi-Fowlers Blood Pressure Location Right Arm Left Arm History Since Last Visit- (Skip if this is Patient's initial visit) Have you changed medications since your No No last visit? Any new allergies or adverse reactions No No Had a fall/change in ADL's that may No No increase risk of falls Signs or symptoms of abuse and/or No No neglect since last visit Have you been in the hospital since your No No last visit? Has dressing in place as prescribed Yes Yes Has compression in place as prescribed Yes Yes Has offloadiing in place as prescribed N/A Yes Experienced any changes in pain level or No No management Left Footwear Surgical Shoe Surgical Shoe with pressure with pressure relief insole relief insole Right Footwear Regular Shoe Regular Shoe Pain Scale: 0-10 Numeric Is Patient Pain Free? No Yes WC - Nurse 1 - General Ulcer Measurement Start: 05/27/25 10:31 Freq: Status: Active Protocol: Activity Type Activity Date Activity User E-sign Co-sign Detail Recorded Client Recorded Date Recorded By Document 05/27/25 10:32 KW [id number] 05/27/25 10:47 KW Document 06/10/25 10:36 KW [id number] 06/10/25 10:44 KW 05/27/25 06/10/25 10:32 10:36 Wound Center Nurse 1 #2 L Heel -Current Size (cm) - Length 4 4.3 -Current Size (cm) - Width 3 3 -Current Size (cm) - Depth 0.1 0.1 -Total Square Cm 12 12.9 -Date of Last Picture (Recall this 05/27/25 06/10/25 field) -Exudate Amt Large Large -Exudate Type Serosanguineous Serosanguineous -Wound Margin Distinct, Distinct, Outline Outline Attached Attached -Granulation Amt Large (67-100%) Medium (34-66%) -Granulation Quality Red Red -Necrosis Amt Small (1-33%) Medium (34-66%) -Necrotic Tissue Type Adherent Slough Adherent Slough -Texture (Andreea-wound Skin Appearance) Assessed Assessed -Moisture (Andreea-wound Skin Appearance) Assessed Assessed -Color (Andreea-wound Skin Appearance) Assessed Assessed -Temperature (Andreea-wound Skin No Abnormality No Abnormality Appearance) (Pt Warm) (Pt Warm) -Tenderness on Palpation (Andreea-wound No No Skin Appearance) -Ulcer Cleansing Soap and Water Rinsed/ Irrigated with Saline -Foul Odor after Cleansing No Yes -Anesthetic Used 5% Lidocaine 5% Lidocaine Gel Gel #1 Sacral Cluster -Current Size (cm) - Length 2.7 2.5 -Current Size (cm) - Width 1.2 1.1 -Current Size (cm) - Depth 2.8 1.8 -Total Square Cm 3.24 2.75 -Date of Last Picture (Recall this 06/10/25 field) -Undermining/Tunneling Yes -Undermining/Tunneling Starts (O'clock 12 11 ) -Undermining/Tunneling Ends (O'clock) 4 4 -Maximum Distance (cm) 4 1.3 -Exudate Amt Large Large -Exudate Type Serosanguineous Serosanguineous -Wound Margin Thickened Thickened -Granulation Amt Large (67-100%) Large (67-100%) -Granulation Quality [place] -Necrosis Amt Small (1-33%) -Necrotic Tissue Type Adherent Slough -Texture (Andreea-wound Skin Appearance) Assessed Assessed -Moisture (Andreea-wound Skin Appearance) No Abnormality, Assessed, Maceration Maceration -Color (Andreea-wound Skin Appearance) Assessed Assessed -Temperature (Andreea-wound Skin No Abnormality No Abnormality Appearance) (Pt Warm) (Pt Warm) -Tenderness on Palpation (Andreea-wound No No Skin Appearance) -Ulcer Cleansing Soap and Water Soap and Water -Foul Odor after Cleansing No No -Anesthetic Used 5% Lidocaine 5% Lidocaine Gel Gel WC - Nurse 2 - General Ulcer CM Notes Start: 05/27/25 10:31 Freq: Status: Active Protocol: Activity Type Activity Date Activity User E-sign Co-sign Detail Recorded Client Recorded Date Recorded By Document 05/27/25 10:50 [id number] 05/27/25 10:55 Document 06/10/25 11:11 [id number] 06/10/25 11:16 Edit Result 06/10/25 11:11 JF (1) [id number] 06/10/25 11:17 JF Edit Result 06/10/25 11:11 JF (2) [id number] 06/10/25 11:31 JF (1) #1 Sacral Cluster - Circular Undermining => Yes (2) #1 Sacral Cluster - I&D / Paring / Biopsy => I&D abscess - => single or simple 05/27/25 06/10/25 10:50 11:11 Wound Center Nurse 2 #2 L Heel -Time 10:50 11:11 -Correct Patient Yes Yes -Correct Side, Site, Position Yes Yes -Correct Procedure Yes Yes -Procedure Performed Yes Yes -Type of Procedure Debridement Debridement -Clinical Debridement Subcutaneous Subcutaneous -Tissue Removed Subcutaneous Subcutaneous -Post Debridement (cm) - Length 4.5 4.3 -Post Debridement (cm) - Width 2.5 2.5 -Post Debridement (cm) - Depth 0.2 0.1 -Total Square (Post) (cm) 11.25 10.75 -Area of Debridement (cm) - Length 4.5 4.3 -Area of Debridement (cm) - Width 2.5 2.5 -Total Square (Area) (cm) 11.25 10.75 -Tunneling No No -Undermining/Tunneling No No -Circular Undermining No No -Wound/Ulcer Outcome Not Healed Not Healed -Ulcer Cleansing Rinsed/ Rinsed/ Irrigated with Irrigated with Saline Saline -Foul Odor after Cleansing No No -Bioengineered Tissue No No -Bleeding Controlled with Pressure Pressure -Treatment Response Procedure Procedure Tolerated Well Tolerated Well -Offloading No No -Debridement - Subq, 1st 20sq cm Yes Yes #1 Sacral Cluster -Time 10:51 -Correct Patient Yes Yes -Correct Side, Site, Position No No -Correct Procedure No No -Procedure Performed No No -Post Debridement (cm) - Length 1.5 -Post Debridement (cm) - Width 3 -Post Debridement (cm) - Depth 2.2 -Total Square (Post) (cm) 4.5 -Area of Debridement (cm) - Length 1.5 -Area of Debridement (cm) - Width 3.0 -Total Square (Area) (cm) 4.50 -Tunneling No -Undermining/Tunneling No -Circular Undermining No Yes -Wound/Ulcer Outcome Not Healed Not Healed -Ulcer Cleansing Rinsed/ Irrigated with Saline -Foul Odor after Cleansing No -Bioengineered Tissue No -Bleeding Controlled with Pressure -Treatment Response Procedure Tolerated Well -Offloading No -Debridement - Muscle / Fascia, 1st No 20sq cm -I&D / Paring / Biopsy I&D abscess - single or simple Pain Scale: 0-10 Numeric Is Patient Pain Free? Yes Yes - Nurse 3 - General Ulcer D/C NN Start: 05/27/25 10:31 Freq: Status: Active Protocol: Activity Type Activity Date Activity User E-sign Co-sign Detail Recorded Client Recorded Date Recorded By Document 05/27/25 11:12 KW [id number] 05/27/25 11:13 KW Document 06/10/25 11:34 KW [id number] 06/10/25 12:11 KW 05/27/25 06/10/25 11:12 11:34 Wound Care Center Nurse 3 #2 L Heel -Primary Dressing Applied Promogran Promogran Deirdre Matter Deirdre Matter -Primary Dressing Covered/Secured with Dry Gauze & Dry Gauze & Roll Gauze, Roll Gauze, Secured with Secured with Tape Tape -Promogran Deirdre Matter 2 1 #1 Sacral Cluster -Negative Pressure Wound Therapy Continue -Pieces of Black Foam Inserted 2 -NPWT Application Charge NPWT </= 50 sq cm ($) -Setting (mmHg) 125 -Negative Pressure is Continuous -Other Dressing SALINE -Primary Dressing Covered/Secured with Dry Gauze, Secured with Tape LLE -Tubular Bandage Single Layer -Size of Tubigrip Used Size E -Size E ($) 1 Pain Scale: 0-10 Numeric Is Patient Pain Free? Yes Yes WC - Visit Discharge Discharge Condition Stable Stable Ambulatory Status Wheelchair Wheelchair Transportation Private Auto Private Auto Accompanied by Medication Reconcilliation completed & No No provided to patient/care provider Clinical Summary of Care Provided Yes Yes Notes: pt uses scooter Assessment/Plan Assessment/Plan (1) Ulcer of foot: CODE(S): L97.509 - Non-pressure chronic ulcer of other part of unspecified foot with unspecified severity QUALIFIERS: Laterality: left Non-pressure ulcer stage: limited to breakdown of skin Qualified Code(s): L97.521 - Non-pressure chronic ulcer of other part of left foot limited to breakdown of skin PLAN: Deirdre (collagen/silver) dressing changes daily F/u in 2 weeks to check on progress. Discussed pressure offloading Continue high protein diet Discussed skin grafting option again today and he is not interested at this time. Rechecking nutrition labs (2) Nonhealing ulcer of heel: CODE(S): L97.409 - Non-pressure chronic ulcer of unspecified heel and midfoot with unspecified severity (3) Type 2 diabetes mellitus: CODE(S): E11.9 - Type 2 diabetes mellitus without complications QUALIFIERS: Diabetes mellitus exterminator termite insulin use: without nursing home use Diabetes mellitus complication status: with circulatory complication Diabetes mellitus complication detail: with other circulatory complications Qualified Code(s): E11.59 - Type 2 diabetes mellitus with other circulatory complications (4) Obesity: CODE(S): E66.9 - Obesity, unspecified (5) Diabetic foot ulcer: CODE(S): E11.621 - Type 2 diabetes mellitus with foot ulcer; L97.509 - Non-pressure chronic ulcer of other part of unspecified foot with unspecified severity (6) Sacral decubitus ulcer, stage III: CODE(S): L89.153 - Pressure ulcer of sacral region, stage 3 PLAN: Wound VAC ideally Three times per week changes Discussed again options for wash out and eventual flap closure of the wound, and patient more receptive as we are failing to make much progress. I talked to him about the risks, benefits,and alternatives of flap surgery. I talked to the patient extensively about the risks of surgery, including bleeding, infection, damage to surrounding structures, poor scaring, surgical site dehiscence and wound formation, making the wound larger, flap failure/need for debridement, need for further wound care, need for repeat operations, failure to obtain the desired result, DVT/PE, and the risks of anesthesia including , including stroke (from low blood pressure/ischemia or clot). The benefits and alternatives of this surgery were also discussed. All of their questions were answered. Clinic procedure: Biopsy of the sacral wound Patient was anesthetized with 7 cc of 1% lidocaine with 1:200,000 epinephrine. It was given time to take effect. Alcohol swab was used to prep and drape the area. Timeout was performed. A 15 blade scalpel was used to make a wedge excision of the margin of the wound and the base of the wound and was sent to pathology on formalin. It was taken at the 8 o'clock position. Patient tolerated procedure well and there was minimal bleeding. Any further bleeding was stopped with a silver nitrate stick. F/u in 2 weeks with biopsy results and to discuss nutrition labs Patient and happy with the plan
--- NOTE | 2025-06-11 10:35 | WC ---
PHOTO-LEFT HEEL 06/10/25
--- NOTE | 2025-06-11 10:36 | WC ---
PHOTO-SACRUM 06/10/25
== END 2025-06-16 23:59 | disposition home or self-care (01) ==
LOC: WC 10:30
PROVIDERS: PCP Family Medicine; Referring Provider Family Medicine; Visit Provider Surgery Plastic and Reconstructive Surgery
DX: E11.621 Type 2 diabetes mellitus with foot ulcer (principal); L89.153 Pressure ulcer of sacral region, stage 3; L97.422 Non-pressure chronic ulcer of left heel and midfoot with fat layer exposed; C91.10 Chronic lymphocytic leukemia of B-cell type not having achieved remission; E11.40 Type 2 diabetes mellitus with diabetic neuropathy, unspecified; Z86.718 Personal history of other venous thrombosis and embolism; Z79.899 Other long term (current) drug therapy; M48.061 Spinal stenosis, lumbar region without neurogenic claudication
CPT/HCPCS: 10060; 11042; 11106; 88305; 97605

== ENCOUNTER → 2025-06-20 | Outpatient (CLI) | payer MEDICARE, SELFPAY ==
[2025-06-20 17:16] LABS: Hematocrit 38.5 % (40-54); Hemoglobin 11.9 g/dL (13.0-16.5); Mean Corp Hgb Conc 30.9 g/dL (32-36); Mean Corpuscular Volume 91.0 fL (80-94); Mean Platelet Vol. 11.2 fl (6.2-12.0); Platelet Count 143 K/mm3 (150-450); RBC Distribution Width CV 17.0 % (11.6-14.6); RBC Distribution Width SD 56.8 fl (35.1-43.9); Red Blood Count 4.23 M/mm3 (4.6-6.2); White Blood Count 9.4 K/mm3 (4.4-11.0)
[2025-06-20 17:29] LABS: AST(SGOT) 34 U/L (<=37); Alanine Aminotransfer ALT/SGPT 25 U/L (<=46); Albumin, Serum 3.6 g/dL (3.4-4.8); Alkaline Phosphatase 146 U/L (40-129); Anion Gap 12 (5-15); BUN 28 mg/dL (4-19); BUN/Creat Ratio 25.9 RATIO (10-20); CRP 62.40 mg/L (0.0-3.0); Calcium,Total 9.6 mg/dL (7.6-11.0); Carbon Dioxide 25.2 mmol/L (21.0-32.0); Chloride 101 mmol/L (98-108); Globulin 2.5 g/dL (2.2-4.2); Glucose 226 mg/dL (70-99); Potassium 3.9 mmol/L (3.3-5.1)
[2025-06-22 04:07] LABS: Prealbumin 20 mg/dL (9-32)
== END | disposition home or self-care (01) ==
LOC: LAB 15:42
PROVIDERS: PCP Family Medicine; Referring Provider Surgery Plastic and Reconstructive Surgery; Visit Provider Surgery Plastic and Reconstructive Surgery
DX: E11.621 Type 2 diabetes mellitus with foot ulcer (principal); L97.429 Non-pressure chronic ulcer of left heel and midfoot with unspecified severity
CPT/HCPCS: 36415; 80053; 83036; 84134; 85027; 85652; 86140

== ENCOUNTER → 2025-07-03 | Outpatient (CLI) | payer MEDICARE, SELFPAY ==
--- NOTE | 2025-07-03 10:58 | MRI_ITS ---
EXAM: PELVIS W/WO CONTRAST 07/03/2025 CLINICAL HISTORY: SACRUM ULCER, OSTEOMYELITIS. TECHNIQUE: Procedure Code: [id number] Modality: MR Procedure: PELVIS W/WO CONTRAST Multiplanar and multisequence images were obtained without and with intravenous gadolinium contrast. CONTRAST: Clariscan VOLUME: 19 mL COMPARISON: MRI of the pelvis dated August 16, 2024 FINDINGS: Again demonstrated is a deep sacral decubitus ulcer extending into the coccyx with destruction of 1st coccygeal segment. There is increased T2 signal and decreased T1 signal within the sacrum with avid enhancement demonstrated within the sacrum. There is presacral edema. The open wound is evident with edema within the ulcer with avid enhancement. No drainable fluid collection seen. SI joints and visible hips are normal. No epidural collection seen. Advanced degenerative changes of the L5-S1 disc space level noted with mass effect on both S1 nerve roots and central stenosis. This is stable since previous exams. The remainder of the sacrum appears normal. There is no deep abscess collection. Trace free fluid is seen in the cul de sac. Prostate gland, seminal vesicles and pelvic structures remain otherwise stable. The urinary bladder is unremarkable. Scattered diverticulosis of the sigmoid colon seen without active diverticulitis. No pelvic lymphadenopathy noted. MRI/Pelvis W/WO Contrast IMPRESSION: Deep sacral decubitus ulcer with osteomyelitis of the coccyx, improved since pr evious studies. There is bony destruction involving the 1st coccygeal segment. Mild presacral edema and trace free fluid in the cul-de-sac with no drainable f luid collection. Reading Location: [id number]
== END | disposition home or self-care (01) ==
LOC: OPMRI 10:52
PROVIDERS: PCP Family Medicine; Referring Provider Surgery Plastic and Reconstructive Surgery; Visit Provider Surgery Plastic and Reconstructive Surgery
DX: M86.9 Osteomyelitis, unspecified (principal)
CPT/HCPCS: 72197

== ENCOUNTER 2025-07-08 10:15 | Outpatient (RCR) | payer MEDICARE, SELFPAY ==
[2025-06-26 13:16] VITALS: BP 124/83; PULSE 89; RESP 16; TEMP 36.2
--- NOTE | 2025-06-26 14:17 | PN.PCM_ITS ---
History of Present Illness Date of Service: 06/26/25 Chief Complaint: Follow-up on buttocks right and left heel wounds that have been going on for months. History of Wound: Chief Complaint: Follow-up on buttocks right and left heel wounds that have been going on for months. 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 He has not walked in several years. He is able to stand up to perform transfers, but does not move his ankle joints. He lays on his chair most of the day. And has developed a sacral wound that he has been following at the wound care center for as well as a left calcaneal wound in the setting of a recent hospitalization this past year, both of which he has been following here at the wound center with various advanced practice providers. Wound culture of left heel ulcer from 08/08/24 positive for MDRO Pseudomonas aeruginosa. Referral to infectious disease for treatment s/p antibiotic regimen. MRI of Pelvis 08/16/24 - Sacral decubitus ulcer with sacrococcygeal osteomyelitis. Treated by infectious disease with long-term course of IV antibiotics. Progress of Wound: The sacral ulcer with bone palpable but covered with granulation tissue and is beefy pink. There is undermining present, which is stable. The perineal ulcer (skin tear proximal to sacral ulcer) remains healed. Left medial heel appears improved with pink ulcer bed and much less non viable tissue present. He is sleeping on the low air loss mattress. 10 December 2024: Patient reports that he has not had any vascular workup for the lower extremity. He has a history of a DVT in the left lower extremity in the remote history and remains on Eliquis for anticoagulation. He reports episodic swelling in the left lower extremity that appears to be worsening the condition of the wound. He is not having any shortness of breath. He is not having any systemic signs or symptoms of infection. 17 December 2024: Doing well with wound care (VAC dressings) which started this past Tuesday. They have an appointment for ABIs and US for evaluation of the lower extremity. He has not gotten his xray of the foot yet, but is planning to get that soon (discussed). Labs obtained 14 Dec 2024 A1C 6.7 Prealb 27 Alb 3.4 Subjective Subjective 07 January 2025: Imaging reviewed. No osteomyelitis on the xray of the foot. There were no DVT on venous study. Arterial study demonstrated noncompressible vessels 2/2 to significant calcific ations of the vasculature Patient has been doing well overall, however. Tolerating dressing changes. 21 January 2025: Doing well overall with dressing changes except there is been an odor coming from the sacral wound after the VAC changes, his would like us to look today. Patient has seen Dr. Farooq (heart doctor) this past week on 19 January 2025 and he discontinued his amiodarone and his blood thinner (patient has been regular with rate and rhythm). He has been off the blood thinner for greater than 48 hours now. Patient also has a follow-up of his ABIs with vascular surgery on 23 January 2025 (2 days from now) To assess need for intervention for increased blood flow to the foot wound. There is another area of concern in the left forearm today that the patient and his would like me to biopsy. It has been there for several months and growing. It is a scaly/scabby lesion on the left proximal dorsal forearm. Biopsy results (from biopsy on 07 January 2025) of the heel wound did not demonstrate any signs of malignancy. 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 This was discussed with the patient and his . Patient doing well overall and is tolerating the TheraSkin applications to the heel. Wound VAC dressing changes are going well as well 18 Feb 2025: Doing well overall. Tolerating theraskin. On the scheduled for excision of the SSC of the left forearm next week. 27 Feb 2025: Tolerating TheraSkin. No fevers chills. All questions answered about once his excision procedure for left forearm squamous cell carcinoma. Patient has been seeing his oncologist and has been getting infusions to increase his white blood cell counts and promote healing. 04 Mar 2025: Reviewed pathology with the patient and his at today's visit from the left forearm squamous cell carcinoma excision. It was negative for malignancy, margins were free from carcinoma. Patient tolerated the procedure well and is feeling well. No pain. No numbness in the forearm. No drainage or fevers chills. Patient here for the foot wound and the sacral wound is well. Reports excellent VAC changes and tolerance of the TheraSkin. 14 Mar 2025: Doing well overall. No appointment this past Tuesday secondary to and TheraSkin fell off from the heal on its own yesterday. There is notes there is scan ordered for today and it will be replaced on this coming Tuesday. 18 March 2025: Doing well overall. No significant change since last appoint. Endorses good dressing changes 25 March 2025: Doing well overall. No big changes. Tolerating TheraSkin treatments and VAC changes. 22 March 2025: Doing well overall. Tolerating TheraSkin 08 April 2025: Tolerating TheraSkin. No fevers chills or drainage. Reports improvement in the size of the sacral wound and persistent heel wound 22 April 2025: The patient is an 84-year-old male presenting with wound and osteomyelitis of the left heal and associated need for wound care. The osteomyelitis was identified through a culture that grew bacteria, indicating an infection in the bone. The patient has been on antibiotics for infection management, with four days remaining in the current course. Patient has been on amoxicillin and linezolid per infectious disease. He will have an appointment with them later this week. The patient has an open wound with granulation tissue, which is being monitored for healing progress. There is no exposed bone currently felt, suggesting some improvement in the wound condition. The wound care plan includes the potential use of Integra and a skin graft once the infection is controlled. Attestation: Documentation on this patient encounter was supported using ambient scribe technology/ voice AI technology. The patient consented to recording for the purpose of documenting the encounter. Provider reviewed content of the generated note prior to signature. 06 MAY 2025: The patient is an 84-year-old male presenting with chronic wounds on the left heel and sacrum. The left heel wound measures 4.5 cm by 2.6 cm and has no exposed bone, only exposed plantar fascia. The sacral wound is a stage 3 ulcer measuring 2 cm by 1.5 cm, also with no exposed bone. The patient reports that the wounds are healing, with home health nurses noting significant improvement over time. The patient has been receiving infusions, which may have contributed to the healing process. The patient has been advised against continued antibiotic use by the infectious disease physician due to potential risks outweighing benefits. The patient also experiences neuropathy, which is exacerbated by back issues, causing significant discomfort in the leg. The patient is considering steroid injections for back pain, although aware of potential impacts on wound healing (which was discussed at the visit today). The patient has a history of skin cancer diagnosed earlier this year, with surgery performed in February. ros: - Integumentary: Reports healing wounds on left heel and sacrum - Neurological: Reports neuropathy and leg discomfort due to back issues Attestation: Documentation on this patient encounter was supported using ambient scribe technology/ voice AI technology. The patient consented to recording for the purpose of documenting the encounter. Provider reviewed content of the generated note prior to signature. 27 May 2025: Doing well overall. Reports that the heal wound seems smaller. 10 June 2025: Discussed the extensive undermining of the sacral wound. There is no exposed bone but discussed MRI and nutrition labs in anticipation for potential surgery as the patient is more willing to potentially go along with this plan as we are seeing limited improvement. As for the foot wound, patient continues the Deirdre dressing changes which seem to be helping. No exposed bone. Wound is smaller CURRENT ENCOUNTER, 26 Jun 2025: Doing well overall. Discussed labs (A1c of 8, Albumin 3.6, Platelets 143, and Hgb 11.9) Patient is not interested in surgery at this point as he does not want to be in the hospital. He is worried also that he will pivot and shear any skin grafting that is done on the foot as he uses this region to pivot. Objective Data Objective Data Vital Signs: Vital Signs Temp Pulse Resp BP 97.2 F L 89 16 124/83 H 06/26/25 13:16 06/26/25 13:16 06/26/25 13:16 06/26/25 13:16 Charges/Coding Procedures Integumentary [id number]: [id number] Ginette subq tissue 20 sq cm/< Physical Exam Narrative Sacral wound Stage 3 1.5 x 2 cm and undermines approximately about 2.5 cm medially and superiorly. No purulence/no exposed bone. Good granulation tissue at the base. No exposed bone Left lower extremity: Heel wound is 5 x 2.5 cm. No exposed bone today. Healthy granulation tissue throughout. Motor: 4 out of 5 hip flexion and extension bilaterally, 4 out of 5 knee flexion and extension bilaterally, 0 out of 5 foot plantarflexion and dorsiflexion. Sensation: No sensation to light touch on the feet. Consistent with peripheral neuropathy. Vascular: No palpable pulses but the feet are warm bilaterally. Const alert and oriented x3 Lymph Lymphatic: no lymphadenopathy noted Lymphatic Narrative: No left axillary or left antecubital lymphadenopathy Cardio regular rate and regular rhythm Extremity Extremity Narrative: Left upper extremity Incision healed from SSC wide-local excision. Skin Skin Narrative: Left forearm Prineo tape removed. Incision is clean dry and intact and has healed nicely. No signs of recurrence of the squamous cell carcinoma. No healing issues Debridement Note Debridement Note Wound debrided: Sacral wound Laterality: Not Applicable Wound Grade/Stage: 3 Type of Debridement: Excisional debridement Anesthesia Used: 4% Lidocaine Solution Depth: in the subcutaneous layer Percentage of wound debrided: 100 Instrument Used: 7mm curette Tissue Removed: Fibrinous exudate Severity: Fat Layer Exposed Amount of bleeding with debridement: Moderate Bleeding Controlled with: Compression and gauze Patient tolerated procedure: Patient tolerated procedure well Post-Debridement Measurements and Additional Note: Post-Debridement Measurements/Treatment - Nurse 1 - General Ulcer Assessment Start: 06/26/25 13:16 Freq: Status: Active Protocol: CHEL Activity Type Activity Date Activity User E-sign Co-sign Detail Recorded Client Recorded Date Recorded By Document 06/26/25 13:16 MARK ANTHONY [id number] 06/26/25 13:20 MARK ANTHONY 06/26/25 13:16 - Today's Visit Information Type of service Follow-up Visit (Physician/[employer] ) Arrival Mode Wheelchair Accompanied by Patient Identification Verified (Name & Yes ) Patient Requires Transmission-Based No Precautions Vital Signs Temperature (97.8 F-99.1 F) 97.2 F L Temperature Source Temporal Pulse Rate (60-100) 89 Pulse Location Monitor Respiratory Rate (12-18) 16 Respiratory rate source Observation Blood Pressure (90/60-120/80) 124/83 H Blood Pressure Mean (mm Hg) 96 Source Monitor Position Sitting Blood Pressure Location Left Arm History Since Last Visit- (Skip if this is Patient's initial visit) Have you changed medications since your No last visit? Any new allergies or adverse reactions No Had a fall/change in ADL's that may No increase risk of falls Signs or symptoms of abuse and/or No neglect since last visit Have you been in the hospital since your No last visit? Has dressing in place as prescribed Yes Has compression in place as prescribed N/A Has offloadiing in place as prescribed Yes Experienced any changes in pain level or No management Left Footwear Surgical Shoe with pressure relief insole Right Footwear Regular Shoe Pain Scale: 0-10 Numeric Is Patient Pain Free? Yes WC - Nurse 1 - General Ulcer Measurement Start: 06/26/25 13:16 Freq: Status: Active Protocol: Activity Type Activity Date Activity User E-sign Co-sign Detail Recorded Client Recorded Date Recorded By Document 06/26/25 13:16 MARK ANTHONY [id number] 06/26/25 13:20 MARK ANTHONY 06/26/25 13:16 Wound Center Nurse 1 #2 L Heel -Combined with other wound No -Current Size (cm) - Length 4.7 -Current Size (cm) - Width 3.1 -Current Size (cm) - Depth 0.5 -Total Square Cm 14.57 -Photo Taken No -Epithelialization Small 1-33% -Tunneling No -Undermining/Tunneling No -Circular Undermining No -Exudate Amt Large -Exudate Type Serosanguineous -Wound Margin Flat & Intact -Granulation Amt Small (1-33%) -Granulation Quality [place] -Slough/Fibrin Yes -Necrosis Amt Large (67-100%) -Necrotic Tissue Type Adherent Slough -Structure Exposed N/A -Texture (Andreea-wound Skin Appearance) Assessed, Friable -Moisture ([place]reea-wound Skin Appearance) Assessed,Dry/ Scaly -Color ([place]reea-wound Skin Appearance) Assessed -Temperature ([place]-wound Skin No Abnormality Appearance) (Pt Warm) -Tenderness on Palpation ([place]reea-wound No Skin Appearance) -Ulcer Cleansing Soap and Water -Foul Odor after Cleansing No -Anesthetic Used 4% Lidocaine Solution #1 Sacral Cluster -Combined with other wound No -Current Size (cm) - Length 3.2 -Current Size (cm) - Width 1.8 -Current Size (cm) - Depth 2.6 -Total Square Cm 5.76 -Photo Taken No -Epithelialization None Present -Tunneling No -Undermining/Tunneling Yes -Undermining/Tunneling Starts (O'clock 1 ) -Undermining/Tunneling Ends (O'clock) 3 -Maximum Distance (cm) 3.6 -Circular Undermining No -Exudate Amt Medium -Exudate Type Serosanguineous -Wound Margin Flat & Intact -Granulation Amt Large (67-100%) -Granulation Quality [place] -Slough/Fibrin Yes -Necrosis Amt Small (1-33%) -Necrotic Tissue Type Adherent Slough -Structure Exposed N/A -Texture (Andreea-wound Skin Appearance) Assessed -Moisture ([place]ree[place]-wound Skin Appearance) Assessed,Dry/ Scaly -Color ([place]-wound Skin Appearance) Assessed -Temperature ([place]-wound Skin No Abnormality Appearance) (Pt Warm) -Tenderness on Palpation ([place]ree[place]-wound No Skin Appearance) -Ulcer Cleansing Soap and Water -Foul Odor after Cleansing No -Anesthetic Used 5% Lidocaine Gel Lower Limb Edema Present No WC - Nurse 2 - General Ulcer CM Notes Start: 06/26/25 13:16 Freq: Status: Active Protocol: Activity Type Activity Date Activity User E-sign Co-sign Detail Recorded Client Recorded Date Recorded By Document 06/26/25 13:21 MARK ANTHONY [id number] 06/26/25 13:34 MARK ANTHONY 06/26/25 13:21 Wound Center Nurse 2 #2 L Heel -Time 13:26 -Correct Patient Yes -Correct Side, Site, Position Yes -Correct Procedure Yes -Procedure Performed Yes -Type of Procedure Debridement -Clinical Debridement Subcutaneous -Tissue Removed Subcutaneous -Post Debridement (cm) - Length 5 -Post Debridement (cm) - Width 3 -Post Debridement (cm) - Depth 0.2 -Total Square (Post) (cm) 15 -Area of Debridement (cm) - Length 5 -Area of Debridement (cm) - Width 3 -Total Square (Area) (cm) 15 -Tunneling No -Undermining/Tunneling No -Circular Undermining No -Wound/Ulcer Outcome Not Healed -Ulcer Cleansing Rinsed/ Irrigated with Saline -Foul Odor after Cleansing No -Bioengineered Tissue No -Bleeding Controlled with Pressure -Treatment Response Procedure Tolerated Well -Offloading No -Debridement - Subq, 1st 20sq cm Yes #1 Sacral Cluster -Time 13:28 -Correct Patient Yes -Correct Side, Site, Position Yes -Correct Procedure Yes -Procedure Performed Yes -Type of Procedure Debridement -Clinical Debridement Muscle / Fascia -Tissue Removed Muscle -Post Debridement (cm) - Length 3.2 -Post Debridement (cm) - Width 1.8 -Post Debridement (cm) - Depth 2.7 -Total Square (Post) (cm) 5.76 -Area of Debridement (cm) - Length 3.2 -Area of Debridement (cm) - Width 1.8 -Total Square (Area) (cm) 5.76 -Tunneling No -Undermining/Tunneling Yes -Undermining/Tunneling Starts (O'clock 1 ) -Undermining/Tunneling Ends (O'clock) 3 -Maximum Distance (cm) 3.6 -Circular Undermining No -Wound/Ulcer Outcome Not Healed -Ulcer Cleansing Rinsed/ Irrigated with Saline -Foul Odor after Cleansing No -Bioengineered Tissue No -Bleeding Controlled with Pressure -Treatment Response Procedure Tolerated Well -Offloading No -Assistive Device(s) Wheelchair -Pressure Reduction Wheelchair cushion -Debridement - Muscle / Fascia, 1st Yes 20sq cm Pain Scale: 0-10 Numeric Is Patient Pain Free? Yes - Nurse 3 - General Ulcer D/C NN Start: 06/26/25 13:16 Freq: Status: Active Protocol: Activity Type Activity Date Activity User E-sign Co-sign Detail Recorded Client Recorded Date Recorded By Document 06/26/25 14:08 [id number] 06/26/25 14:10 06/26/25 14:08 Wound Care Center Nurse 3 #2 L Heel -Ulcer Cleansing Rinsed/ Irrigated with Saline -Foul Odor after Cleansing No -Primary Dressing Applied Promogran Deirdre Matter -Primary Dressing Covered/Secured with Dry Gauze & Roll Gauze, Secured with Tape -Promogran Deirdre Matter 1 #1 Sacral Cluster -Ulcer Cleansing Soap and Water -Negative Pressure Wound Therapy Continue -Pieces of Black Foam Inserted 1 -NPWT Application Charge NPWT & Debridement (nc ) -Foam Supply Charges Patient Supplied Dressing Pain Scale: 0-10 Numeric Is Patient Pain Free? Yes - Visit Discharge Discharge Condition Stable Ambulatory Status Wheelchair Transportation Private Auto Accompanied by Medication Reconcilliation completed & Yes provided to patient/care provider Clinical Summary of Care Provided Yes Notes: Ann Arizmendi Oncologist [phone] [facility] Additional Wound Wound debrided: Left heal Laterality: Left Wound Grade/Stage: 3 Type of Debridement: Excisional debridement Anesthesia Used: 4% Lidocaine Solution Depth: in the subcutaneous layer Percentage of wound debrided: 100 Instrument Used: 7mm curette Tissue Removed: Fibrinous exudate Severity: Fat Layer Exposed Bleeding Controlled with: Compression and gauze Patient tolerated procedure: Patient tolerated procedure well Assessment/Plan Assessment/Plan (1) Sacral decubitus ulcer, stage III: CODE(S): L89.153 - Pressure ulcer of sacral region, stage 3 (2) Diabetic foot ulcer: CODE(S): E11.621 - Type 2 diabetes mellitus with foot ulcer; L97.509 - Non-pressure chronic ulcer of other part of unspecified foot with unspecified severity PLAN: Plan Patient is getting an MRI of the sacral region We reviewed the biopsy of the wound which did not demonstrate any malignancy I talked to the patient about 2-week follow-up to review MRI I also talked him about potential surgery on the foot and sacral ulcer, but he is not interested at this time as he does not want to going in the hospital and is concerned about positioning restrictions postoperatively. He will reconsider with his . 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
[2025-07-08 10:30] VITALS: BP 93/68; PULSE 83; RESP 16; TEMP 36.8
--- NOTE | 2025-07-09 10:10 | WC ---
PHOTO-SACRUM 07/08/25
--- NOTE | 2025-07-09 10:11 | WC ---
PHOTO-LEFT HEEL 07/08/25
--- NOTE | 2025-07-09 10:12 | PN.PCM_ITS ---
History of Present Illness Date of Service: 07/08/25 Chief Complaint: Follow-up on buttocks right and left heel wounds that have been going on for months. History of Wound: Chief Complaint: Follow-up on buttocks right and left heel wounds that have been going on for months. 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 He has not walked in several years. He is able to stand up to perform transfers, but does not move his ankle joints. He lays on his chair most of the day. And has developed a sacral wound that he has been following at the wound care center for as well as a left calcaneal wound in the setting of a recent hospitalization this past year, both of which he has been following here at the wound center with various advanced practice providers. Wound culture of left heel ulcer from 08/08/24 positive for MDRO Pseudomonas aeruginosa. Referral to infectious disease for treatment s/p antibiotic regimen. MRI of Pelvis 08/16/24 - Sacral decubitus ulcer with sacrococcygeal osteomyelitis. Treated by infectious disease with long-term course of IV antibiotics. Progress of Wound: The sacral ulcer with bone palpable but covered with granulation tissue and is beefy pink. There is undermining present, which is stable. The perineal ulcer (skin tear proximal to sacral ulcer) remains healed. Left medial heel appears improved with pink ulcer bed and much less non viable tissue present. He is sleeping on the low air loss mattress. 10 December 2024: Patient reports that he has not had any vascular workup for the lower extremity. He has a history of a DVT in the left lower extremity in the remote history and remains on Eliquis for anticoagulation. He reports episodic swelling in the left lower extremity that appears to be worsening the condition of the wound. He is not having any shortness of breath. He is not having any systemic signs or symptoms of infection. 17 December 2024: Doing well with wound care (VAC dressings) which started this past Tuesday. They have an appointment for ABIs and US for evaluation of the lower extremity. He has not gotten his xray of the foot yet, but is planning to get that soon (discussed). Labs obtained 14 Dec 2024 A1C 6.7 Prealb 27 Alb 3.4 Subjective Subjective 07 January 2025: Imaging reviewed. No osteomyelitis on the xray of the foot. There were no DVT on venous study. Arterial study demonstrated noncompressible vessels 2/2 to significant calcific ations of the vasculature Patient has been doing well overall, however. Tolerating dressing changes. 21 January 2025: Doing well overall with dressing changes except there is been an odor coming from the sacral wound after the VAC changes, his would like us to look today. Patient has seen Dr. Farooq (heart doctor) this past week on 19 January 2025 and he discontinued his amiodarone and his blood thinner (patient has been regular with rate and rhythm). He has been off the blood thinner for greater than 48 hours now. Patient also has a follow-up of his ABIs with vascular surgery on 23 January 2025 (2 days from now) To assess need for intervention for increased blood flow to the foot wound. There is another area of concern in the left forearm today that the patient and his would like me to biopsy. It has been there for several months and growing. It is a scaly/scabby lesion on the left proximal dorsal forearm. Biopsy results (from biopsy on 07 January 2025) of the heel wound did not demonstrate any signs of malignancy. 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 This was discussed with the patient and his . Patient doing well overall and is tolerating the TheraSkin applications to the heel. Wound VAC dressing changes are going well as well 18 Feb 2025: Doing well overall. Tolerating theraskin. On the scheduled for excision of the SSC of the left forearm next week. 27 Feb 2025: Tolerating TheraSkin. No fevers chills. All questions answered about once his excision procedure for left forearm squamous cell carcinoma. Patient has been seeing his oncologist and has been getting infusions to increase his white blood cell counts and promote healing. 04 Mar 2025: Reviewed pathology with the patient and his at today's visit from the left forearm squamous cell carcinoma excision. It was negative for malignancy, margins were free from carcinoma. Patient tolerated the procedure well and is feeling well. No pain. No numbness in the forearm. No drainage or fevers chills. Patient here for the foot wound and the sacral wound is well. Reports excellent VAC changes and tolerance of the TheraSkin. 14 Mar 2025: Doing well overall. No appointment this past Tuesday secondary to and TheraSkin fell off from the heal on its own yesterday. There is notes there is scan ordered for today and it will be replaced on this coming Tuesday. 18 March 2025: Doing well overall. No significant change since last appoint. Endorses good dressing changes 25 March 2025: Doing well overall. No big changes. Tolerating TheraSkin treatments and VAC changes. 22 March 2025: Doing well overall. Tolerating TheraSkin 08 April 2025: Tolerating TheraSkin. No fevers chills or drainage. Reports improvement in the size of the sacral wound and persistent heel wound 22 April 2025: The patient is an 84-year-old male presenting with wound and osteomyelitis of the left heal and associated need for wound care. The osteomyelitis was identified through a culture that grew bacteria, indicating an infection in the bone. The patient has been on antibiotics for infection management, with four days remaining in the current course. Patient has been on amoxicillin and linezolid per infectious disease. He will have an appointment with them later this week. The patient has an open wound with granulation tissue, which is being monitored for healing progress. There is no exposed bone currently felt, suggesting some improvement in the wound condition. The wound care plan includes the potential use of Integra and a skin graft once the infection is controlled. Attestation: Documentation on this patient encounter was supported using ambient scribe technology/ voice AI technology. The patient consented to recording for the purpose of documenting the encounter. Provider reviewed content of the generated note prior to signature. 06 MAY 2025: The patient is an 84-year-old male presenting with chronic wounds on the left heel and sacrum. The left heel wound measures 4.5 cm by 2.6 cm and has no exposed bone, only exposed plantar fascia. The sacral wound is a stage 3 ulcer measuring 2 cm by 1.5 cm, also with no exposed bone. The patient reports that the wounds are healing, with home health nurses noting significant improvement over time. The patient has been receiving infusions, which may have contributed to the healing process. The patient has been advised against continued antibiotic use by the infectious disease physician due to potential risks outweighing benefits. The patient also experiences neuropathy, which is exacerbated by back issues, causing significant discomfort in the leg. The patient is considering steroid injections for back pain, although aware of potential impacts on wound healing (which was discussed at the visit today). The patient has a history of skin cancer diagnosed earlier this year, with surgery performed in February. ros: - Integumentary: Reports healing wounds on left heel and sacrum - Neurological: Reports neuropathy and leg discomfort due to back issues Attestation: Documentation on this patient encounter was supported using ambient scribe technology/ voice AI technology. The patient consented to recording for the purpose of documenting the encounter. Provider reviewed content of the generated note prior to signature. 27 May 2025: Doing well overall. Reports that the heal wound seems smaller. 10 June 2025: Discussed the extensive undermining of the sacral wound. There is no exposed bone but discussed MRI and nutrition labs in anticipation for potential surgery as the patient is more willing to potentially go along with this plan as we are seeing limited improvement. As for the foot wound, patient continues the Deirdre dressing changes which seem to be helping. No exposed bone. Wound is smaller 26 Jun 2025: Doing well overall. Discussed labs (A1c of 8, Albumin 3.6, Platelets 143, and Hgb 11.9) Patient is not interested in surgery at this point as he does not want to be in the hospital. He is worried also that he will pivot and shear any skin grafting that is done on the foot as he uses this region to pivot. CURRENT ENCOUNTER, 08 July 2025: Discussed with the patient and his the results of the MRI (no read from the radiologist yet). Per my read I do see evidence that the sacral/coccygeal region was eroded at some point secondary to osteomyelitis. I discussed with them potential implications, and how there is no current the exposed bone and this may be from previous osteomyelitis which may or may not be contributing to the current state of the wound. Objective Data Objective Data Vital Signs: Vital Signs Temp Pulse Resp BP 98.3 F 83 16 93/68 07/08/25 10:30 07/08/25 10:30 07/08/25 10:30 07/08/25 10:30 Charges/Coding Procedures Integumentary [id number]: [id number] Ginette subq tissue 20 sq cm/< Physical Exam Narrative Sacral wound Stage 3 Wound is larger and is now 5 x 1.5 cm cm and undermines approximately about 2.8 cm medially and superiorly. No purulence/no exposed bone. Good granulation tissue at the base. No exposed bone Left lower extremity: Heel wound is 5 x 2.8 cm and 0.3 cm deep cm. No exposed bone today. Healthy granulation tissue throughout. Motor: 4 out of 5 hip flexion and extension bilaterally, 4 out of 5 knee flexion and extension bilaterally, 0 out of 5 foot plantarflexion and dorsiflexion. Sensation: No sensation to light touch on the feet. Consistent with peripheral neuropathy. Vascular: No palpable pulses but the feet are warm bilaterally. Const alert and oriented x3 Lymph Lymphatic: no lymphadenopathy noted Lymphatic Narrative: No left axillary or left antecubital lymphadenopathy Cardio regular rate and regular rhythm Extremity Extremity Narrative: Left upper extremity Incision healed from SSC wide-local excision. Skin Skin Narrative: Left forearm Prineo tape removed. Incision is clean dry and intact and has healed nicely. No signs of recurrence of the squamous cell carcinoma. No healing issues Debridement Note Debridement Note Wound debrided: Heel ulcer Laterality: Left Wound Grade/Stage: Stage III Type of Debridement: Excisional debridement Anesthesia Used: 4% Lidocaine Solution Depth: Down to and including healthy tissue and in the subcutaneous layer Percentage of wound debrided: 100 Instrument Used: 7mm curette, #15 blade, Forceps and - (And scissors for sharp excision) Tissue Removed: Necrotic fibrinous exudate and hypertrophic granulation tissue at the base Severity: Fat Layer Exposed Amount of bleeding with debridement: Mild Bleeding Controlled with: Compression and gauze Patient tolerated procedure: Patient tolerated procedure well Post-Debridement Measurements and Additional Note: Post-Debridement Measurements/Treatment - Nurse 1 - General Ulcer Assessment Start: 06/26/25 13:16 Freq: Status: Active Protocol: CHEL Activity Type Activity Date Activity User E-sign Co-sign Detail Recorded Client Recorded Date Recorded By Document 06/26/25 13:16 MARK ANTHONY [id number] 06/26/25 13:20 Document 07/08/25 10:30 CP [id number] 07/08/25 10:41 CP 06/26/25 07/08/25 13:16 10:30 - Today's Visit Information Type of service Follow-up Visit Follow-up Visit (Physician/OVEN EQUIPMENT REPAIRER (Physician/OVEN EQUIPMENT REPAIRER ) ) Arrival Mode Wheelchair Wheelchair Transfer Assistance Manual Transfer Assist (Other) 2 Accompanied by Patient Identification Verified (Name & Yes Yes ) Patient Requires Transmission-Based No Precautions Vital Signs Temperature (97.8 F-99.1 F) 97.2 F L 98.3 F Temperature Source Temporal Temporal Pulse Rate (60-100) 89 83 Pulse Location Monitor Monitor Respiratory Rate (12-18) 16 16 Respiratory rate source Observation Observation Blood Pressure (90/60-120/80) 124/83 H 93/68 Blood Pressure Mean (mm Hg) 96 76 Source Monitor Monitor Position Sitting Sitting Blood Pressure Location Left Arm Right Arm History Since Last Visit- (Skip if this is Patient's initial visit) Have you changed medications since your No No last visit? Any new allergies or adverse reactions No No Had a fall/change in ADL's that may No No increase risk of falls Signs or symptoms of abuse and/or No No neglect since last visit Have you been in the hospital since your No No last visit? Has dressing in place as prescribed Yes Yes Has compression in place as prescribed N/A Has offloadiing in place as prescribed Yes Experienced any changes in pain level or No management Left Footwear Surgical Shoe with pressure relief insole Right Footwear Regular Shoe Pain Scale: 0-10 Numeric Is Patient Pain Free? Yes Yes - Nurse 1 - General Ulcer Measurement Start: 06/26/25 13:16 Freq: Status: Active Protocol: Activity Type Activity Date Activity User E-sign Co-sign Detail Recorded Client Recorded Date Recorded By Document 06/26/25 13:16 [id number] 06/26/25 13:20 Document 07/08/25 10:30 CP [id number] 07/08/25 10:41 06/26/25 07/08/25 13:16 10:30 Wound Center Nurse 1 #2 L Heel -Combined with other wound No -Current Size (cm) - Length 4.7 5 -Current Size (cm) - Width 3.1 4.5 -Current Size (cm) - Depth 0.5 0.3 -Total Square Cm 14.57 22.5 -Date of Last Picture (Recall this 07/08/25 field) -Photo Taken No Yes -Epithelialization Small 1-33% -Tunneling No -Undermining/Tunneling No -Circular Undermining No -Exudate Amt Large Medium -Exudate Type Serosanguineous Serosanguineous -Wound Margin Flat & Intact Flat & Intact -Granulation Amt Small (1-33%) Medium (34-66%) -Granulation Quality Harmony Harmony -Slough/Fibrin Yes Yes -Necrosis Amt Large (67-100%) Medium (34-66%) -Necrotic Tissue Type Adherent Slough Adherent Slough -Structure Exposed N/A -Texture (Andreea-wound Skin Appearance) Assessed, Friable -Moisture (Andreea-wound Skin Appearance) Assessed,Dry/ Scaly -Color (Andreea-wound Skin Appearance) Assessed -Temperature (Andreea-wound Skin No Abnormality No Abnormality Appearance) (Pt Warm) (Pt Warm) -Tenderness on Palpation (Andreea-wound No Skin Appearance) -Ulcer Cleansing Soap and Water Soap and Water -Foul Odor after Cleansing No No -Anesthetic Used 4% Lidocaine 5% Lidocaine Solution Gel #1 Sacral Cluster -Combined with other wound No -Current Size (cm) - Length 3.2 3 -Current Size (cm) - Width 1.8 1.5 -Current Size (cm) - Depth 2.6 2.5 -Total Square Cm 5.76 4.5 -Date of Last Picture (Recall this 07/08/25 field) -Photo Taken No Yes -Epithelialization None Present -Tunneling No -Undermining/Tunneling Yes Yes -Undermining/Tunneling Starts (O'clock 1 2 ) -Undermining/Tunneling Ends (O'clock) 3 5 -Maximum Distance (cm) 3.6 4 -Circular Undermining No -Exudate Amt Medium Medium -Exudate Type Serosanguineous Serosanguineous -Wound Margin Flat & Intact Flat & Intact -Granulation Amt Large (67-100%) Medium (34-66%) -Granulation Quality Harmony Harmony -Slough/Fibrin Yes Yes -Necrosis Amt Small (1-33%) Medium (34-66%) -Necrotic Tissue Type Adherent Slough Adherent Slough -Structure Exposed N/A -Texture (Andreea-wound Skin Appearance) Assessed No Abnormality -Moisture (Andreea-wound Skin Appearance) Assessed,Dry/ No Abnormality, Scaly Assessed -Color (Andreea-wound Skin Appearance) Assessed No Abnormality -Temperature (Andreea-wound Skin No Abnormality No Abnormality Appearance) (Pt Warm) (Pt Warm) -Tenderness on Palpation (Andreea-wound No Skin Appearance) -Ulcer Cleansing Soap and Water Rinsed/ Irrigated with Saline -Foul Odor after Cleansing No No -Anesthetic Used 5% Lidocaine 5% Lidocaine Gel Gel Lower Limb Edema Present No - Nurse 2 - General Ulcer CM Notes Start: 06/26/25 13:16 Freq: Status: Active Protocol: Activity Type Activity Date Activity User E-sign Co-sign Detail Recorded Client Recorded Date Recorded By Document 06/26/25 13:21 [id number] 06/26/25 13:34 Document 07/08/25 11:05 [id number] 07/08/25 11:16 06/26/25 07/08/25 13:21 11:05 Wound Center Nurse 2 #2 L Heel -Time 13:26 11:06 -Correct Patient Yes Yes -Correct Side, Site, Position Yes Yes -Correct Procedure Yes Yes -Procedure Performed Yes Yes -Type of Procedure Debridement Debridement -Clinical Debridement Subcutaneous Subcutaneous -Tissue Removed Subcutaneous Subcutaneous -Post Debridement (cm) - Length 5 5 -Post Debridement (cm) - Width 3 2.8 -Post Debridement (cm) - Depth 0.2 0.3 -Total Square (Post) (cm) 15 14.0 -Area of Debridement (cm) - Length 5 5 -Area of Debridement (cm) - Width 3 2.8 -Total Square (Area) (cm) 15 14.0 -Tunneling No No -Undermining/Tunneling No No -Circular Undermining No No -Wound/Ulcer Outcome Not Healed Not Healed -Ulcer Cleansing Rinsed/ Rinsed/ Irrigated with Irrigated with Saline Saline -Foul Odor after Cleansing No No -Bioengineered Tissue No No -Bleeding Controlled with Pressure Pressure -Treatment Response Procedure Procedure Tolerated Well Tolerated Well -Offloading No No -Debridement - Subq, 1st 20sq cm Yes Yes #1 Sacral Cluster -Time 13:28 11:06 -Correct Patient Yes Yes -Correct Side, Site, Position Yes Yes -Correct Procedure Yes Yes -Procedure Performed Yes Yes -Type of Procedure Debridement Debridement -Clinical Debridement Muscle / Fascia Muscle / Fascia -Tissue Removed Muscle Muscle -Post Debridement (cm) - Length 3.2 3.5 -Post Debridement (cm) - Width 1.8 1.5 -Post Debridement (cm) - Depth 2.7 2.8 -Total Square (Post) (cm) 5.76 5.25 -Area of Debridement (cm) - Length 3.2 3.5 -Area of Debridement (cm) - Width 1.8 1.5 -Total Square (Area) (cm) 5.76 5.25 -Tunneling No No -Undermining/Tunneling Yes No -Undermining/Tunneling Starts (O'clock 1 ) -Undermining/Tunneling Ends (O'clock) 3 -Maximum Distance (cm) 3.6 -Circular Undermining No No -Wound/Ulcer Outcome Not Healed Not Healed -Ulcer Cleansing Rinsed/ Rinsed/ Irrigated with Irrigated with Saline Saline -Foul Odor after Cleansing No No -Bioengineered Tissue No No -Bleeding Controlled with Pressure Pressure -Treatment Response Procedure Procedure Tolerated Well Tolerated Well -Offloading No No -Assistive Device(s) Wheelchair -Pressure Reduction Wheelchair Wheelchair cushion cushion -Debridement - Muscle / Fascia, 1st Yes Yes 20sq cm Pain Scale: 0-10 Numeric Is Patient Pain Free? Yes Yes - Nurse 3 - General Ulcer D/C NN Start: 06/26/25 13:16 Freq: Status: Active Protocol: Activity Type Activity Date Activity User E-sign Co-sign Detail Recorded Client Recorded Date Recorded By Document 06/26/25 14:08 [id number] 06/26/25 14:10 Document 07/08/25 12:11 [id number] 07/08/25 12:14 06/26/25 07/08/25 14:08 12:11 Wound Care Center Nurse 3 #2 L Heel -Ulcer Cleansing Rinsed/ Rinsed/ Irrigated with Irrigated with Saline Saline -Foul Odor after Cleansing No No -Primary Dressing Applied Promogran Deirdre Matter -Other Dressing ns moist gauze, abd, kerlix -Primary Dressing Covered/Secured with Dry Gauze & Dry Gauze & Roll Gauze, Roll Gauze, Secured with Secured with Tape Tape -Promogran Deirdre Matter 1 #1 Sacral Cluster -Ulcer Cleansing Soap and Water Rinsed/ Irrigated with Saline -Foul Odor after Cleansing No -Negative Pressure Wound Therapy Continue -Pieces of Black Foam Inserted 1 -NPWT Application Charge NPWT & NPWT & Debridement (nc Debridement (nc ) ) -Foam Supply Charges Patient Patient Supplied Supplied Dressing Dressing -Setting (mmHg) 125 -Negative Pressure is Continuous Treatment Response Procedure Tolerated Well Pain Scale: 0-10 Numeric Is Patient Pain Free? Yes Yes - Visit Discharge Discharge Condition Stable Stable Ambulatory Status Wheelchair Wheelchair Transportation Private Auto Private Auto Accompanied by Medication Reconcilliation completed & Yes provided to patient/care provider Clinical Summary of Care Provided Yes Yes Notes: Ann Arizmendi Oncologist [phone] [facility] Assessment/Plan Assessment/Plan (1) Sacral decubitus ulcer, stage III: CODE(S): L89.153 - Pressure ulcer of sacral region, stage 3 (2) Diabetic foot ulcer: CODE(S): E11.621 - Type 2 diabetes mellitus with foot ulcer; L97.509 - Non-pressure chronic ulcer of other part of unspecified foot with unspecified severity PLAN: Plan Sacral wound We reviewed the biopsy of the wound which did not demonstrate any malignancy I will follow-up with the final read of the MRI After an extensive discussion regarding pressure offloading, patient is not currently interested in any sacral wound debridement/reconstruction at this time, but may choose to do so in the future (we are going to continue to discuss as a team). I did talk to him extensively about shear forces and pressure offloading of the heel. We determined as a team that he may be having issues with putting pressure on the wound as he transfers from his chair to the bathroom seat and therefore we have referred him today to [facility] for custom made offloading splint for his left foot to protect the ulcer. This would give us the option of placing a dermal substitute followed by a skin graft, which I think would get this wound healed. Patient and his are interested in this option. Follow-up in 2 weeks after he gets the custom splint and then we will discuss surgical plan.
== END 2025-07-16 23:59 | disposition home or self-care (01) ==
LOC: WC 10:15
PROVIDERS: PCP Family Medicine; Referring Provider Family Medicine; Visit Provider Surgery Plastic and Reconstructive Surgery
DX: E11.621 Type 2 diabetes mellitus with foot ulcer (principal); L89.153 Pressure ulcer of sacral region, stage 3; C91.10 Chronic lymphocytic leukemia of B-cell type not having achieved remission; Z86.718 Personal history of other venous thrombosis and embolism
CPT/HCPCS: 11042; 11043

== ENCOUNTER 2025-08-14 10:15 | Outpatient (RCR) | payer MEDICARE, SELFPAY ==
[2025-07-29 15:35] VITALS: BP 117/63; PULSE 96; RESP 18; TEMP 36.6
--- NOTE | 2025-07-29 16:21 | PN.PCM_ITS ---
History of Present Illness Date of Service: 07/29/25 Chief Complaint: Follow-up on buttocks right and left heel wounds that have been going on for months. History of Wound: Chief Complaint: Follow-up on buttocks right and left heel wounds that have been going on for months. 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 He has not walked in several years. He is able to stand up to perform transfers, but does not move his ankle joints. He lays on his chair most of the day. And has developed a sacral wound that he has been following at the wound care center for as well as a left calcaneal wound in the setting of a recent hospitalization this past year, both of which he has been following here at the wound center with various advanced practice providers. Wound culture of left heel ulcer from 08/08/24 positive for MDRO Pseudomonas aeruginosa. Referral to infectious disease for treatment s/p antibiotic regimen. MRI of Pelvis 08/16/24 - Sacral decubitus ulcer with sacrococcygeal osteomyelitis. Treated by infectious disease with long-term course of IV antibiotics. Progress of Wound: The sacral ulcer with bone palpable but covered with granulation tissue and is beefy pink. There is undermining present, which is stable. The perineal ulcer (skin tear proximal to sacral ulcer) remains healed. Left medial heel appears improved with pink ulcer bed and much less non viable tissue present. He is sleeping on the low air loss mattress. 10 December 2024: Patient reports that he has not had any vascular workup for the lower extremity. He has a history of a DVT in the left lower extremity in the remote history and remains on Eliquis for anticoagulation. He reports episodic swelling in the left lower extremity that appears to be worsening the condition of the wound. He is not having any shortness of breath. He is not having any systemic signs or symptoms of infection. 17 December 2024: Doing well with wound care (VAC dressings) which started this past Tuesday. They have an appointment for ABIs and US for evaluation of the lower extremity. He has not gotten his xray of the foot yet, but is planning to get that soon (discussed). Labs obtained 14 Dec 2024 A1C 6.7 Prealb 27 Alb 3.4 Subjective Subjective 07 January 2025: Imaging reviewed. No osteomyelitis on the xray of the foot. There were no DVT on venous study. Arterial study demonstrated noncompressible vessels 2/2 to significant calcific ations of the vasculature Patient has been doing well overall, however. Tolerating dressing changes. 21 January 2025: Doing well overall with dressing changes except there is been an odor coming from the sacral wound after the VAC changes, his would like us to look today. Patient has seen Dr. Farooq (heart doctor) this past week on 19 January 2025 and he discontinued his amiodarone and his blood thinner (patient has been regular with rate and rhythm). He has been off the blood thinner for greater than 48 hours now. Patient also has a follow-up of his ABIs with vascular surgery on 23 January 2025 (2 days from now) To assess need for intervention for increased blood flow to the foot wound. There is another area of concern in the left forearm today that the patient and his would like me to biopsy. It has been there for several months and growing. It is a scaly/scabby lesion on the left proximal dorsal forearm. Biopsy results (from biopsy on 07 January 2025) of the heel wound did not demonstrate any signs of malignancy. 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 This was discussed with the patient and his . Patient doing well overall and is tolerating the TheraSkin applications to the heel. Wound VAC dressing changes are going well as well 18 Feb 2025: Doing well overall. Tolerating theraskin. On the scheduled for excision of the SSC of the left forearm next week. 27 Feb 2025: Tolerating TheraSkin. No fevers chills. All questions answered about once his excision procedure for left forearm squamous cell carcinoma. Patient has been seeing his oncologist and has been getting infusions to increase his white blood cell counts and promote healing. 04 Mar 2025: Reviewed pathology with the patient and his at today's visit from the left forearm squamous cell carcinoma excision. It was negative for malignancy, margins were free from carcinoma. Patient tolerated the procedure well and is feeling well. No pain. No numbness in the forearm. No drainage or fevers chills. Patient here for the foot wound and the sacral wound is well. Reports excellent VAC changes and tolerance of the TheraSkin. 14 Mar 2025: Doing well overall. No appointment this past Tuesday secondary to and TheraSkin fell off from the heal on its own yesterday. There is notes there is scan ordered for today and it will be replaced on this coming Tuesday. 18 March 2025: Doing well overall. No significant change since last appoint. Endorses good dressing changes 25 March 2025: Doing well overall. No big changes. Tolerating TheraSkin treatments and VAC changes. 22 March 2025: Doing well overall. Tolerating TheraSkin 08 April 2025: Tolerating TheraSkin. No fevers chills or drainage. Reports improvement in the size of the sacral wound and persistent heel wound 22 April 2025: The patient is an 84-year-old male presenting with wound and osteomyelitis of the left heal and associated need for wound care. The osteomyelitis was identified through a culture that grew bacteria, indicating an infection in the bone. The patient has been on antibiotics for infection management, with four days remaining in the current course. Patient has been on amoxicillin and linezolid per infectious disease. He will have an appointment with them later this week. The patient has an open wound with granulation tissue, which is being monitored for healing progress. There is no exposed bone currently felt, suggesting some improvement in the wound condition. The wound care plan includes the potential use of Integra and a skin graft once the infection is controlled. Attestation: Documentation on this patient encounter was supported using ambient scribe technology/ voice AI technology. The patient consented to recording for the purpose of documenting the encounter. Provider reviewed content of the generated note prior to signature. 06 MAY 2025: The patient is an 84-year-old male presenting with chronic wounds on the left heel and sacrum. The left heel wound measures 4.5 cm by 2.6 cm and has no exposed bone, only exposed plantar fascia. The sacral wound is a stage 3 ulcer measuring 2 cm by 1.5 cm, also with no exposed bone. The patient reports that the wounds are healing, with home health nurses noting significant improvement over time. The patient has been receiving infusions, which may have contributed to the healing process. The patient has been advised against continued antibiotic use by the infectious disease physician due to potential risks outweighing benefits. The patient also experiences neuropathy, which is exacerbated by back issues, causing significant discomfort in the leg. The patient is considering steroid injections for back pain, although aware of potential impacts on wound healing (which was discussed at the visit today). The patient has a history of skin cancer diagnosed earlier this year, with surgery performed in February. ros: - Integumentary: Reports healing wounds on left heel and sacrum - Neurological: Reports neuropathy and leg discomfort due to back issues Attestation: Documentation on this patient encounter was supported using ambient scribe technology/ voice AI technology. The patient consented to recording for the purpose of documenting the encounter. Provider reviewed content of the generated note prior to signature. 27 May 2025: Doing well overall. Reports that the heal wound seems smaller. 10 June 2025: Discussed the extensive undermining of the sacral wound. There is no exposed bone but discussed MRI and nutrition labs in anticipation for potential surgery as the patient is more willing to potentially go along with this plan as we are seeing limited improvement. As for the foot wound, patient continues the Deirdre dressing changes which seem to be helping. No exposed bone. Wound is smaller 26 Jun 2025: Doing well overall. Discussed labs (A1c of 8, Albumin 3.6, Platelets 143, and Hgb 11.9) Patient is not interested in surgery at this point as he does not want to be in the hospital. He is worried also that he will pivot and shear any skin grafting that is done on the foot as he uses this region to pivot. 08 July 2025: Discussed with the patient and his the results of the MRI (no read from the radiologist yet). Per my read I do see evidence that the sacral/coccygeal region was eroded at some point secondary to osteomyelitis. I discussed with them potential implications, and how there is no current the exposed bone and this may be from previous osteomyelitis which may or may not be contributing to the current state of the wound. CURRENT ENCOUNTER, 29 July 2025: Recently went to the ED 2/2 concern from home health about the left calf wound. He was not admitted and was placed on oral antibiotics. They went to [facility] for evaluation of a pressure offloading boot/splint. This was unsuccessful Objective Data Objective Data Vital Signs: Vital Signs Temp Pulse Resp BP O2 Del Method 98 F 96 18 117/63 Room Air 07/29/25 15:35 07/29/25 15:35 07/29/25 15:35 07/29/25 15:35 07/29/25 15:35 Oxygen Delivery Method Room Air Charges/Coding Procedures Integumentary 111xxx-113xx: [id number] Ginette musc/fascia 20 sq cm/< Physical Exam Narrative Sacral wound Stage 3 Wound is 5 x 1.3 cm cm and undermines approximately about 3.5 cm medially and superiorly. No purulence/no exposed bone. Good granulation tissue at the base. No exposed bone Left lower extremity: Heel wound is 6.5 x 3.5 cm and 0.2 cm deep cm. No exposed bone today. Healthy granulation tissue throughout. Motor: 4 out of 5 hip flexion and extension bilaterally, 4 out of 5 knee flexion and extension bilaterally, 0 out of 5 foot plantarflexion and dorsiflexion. Sensation: No sensation to light touch on the feet. Consistent with peripheral neuropathy. Vascular: No palpable pulses but the feet are warm bilaterally. Const alert and oriented x3 Lymph Lymphatic: no lymphadenopathy noted Lymphatic Narrative: No left axillary or left antecubital lymphadenopathy Cardio regular rate and regular rhythm Extremity Extremity Narrative: Left upper extremity Incision healed from SSC wide-local excision. Skin Skin Narrative: Left forearm Prineo tape removed. Incision is clean dry and intact and has healed nicely. No signs of recurrence of the squamous cell carcinoma. No healing issues Debridement Note Debridement Note Wound debrided: Left calf wound Laterality: Left Wound Grade/Stage: Stage III Type of Debridement: Excisional debridement Anesthesia Used: 4% Lidocaine Solution Depth: to muscle (Fascia exposed on the heel which was excised ) Percentage of wound debrided: 100 Instrument Used: Forceps and - (Scissors for sharp excision) Tissue Removed: Fibrinous exudate, fascia, and some frayed desiccated tendon Severity: Necrosis of Muscle (Necrosis of the fascia and some tendon desicca tion) Amount of bleeding with debridement: Moderate Bleeding Controlled with: Compression and gauze Patient tolerated procedure: Patient tolerated procedure well Post-Debridement Measurements and Additional Note: Post-Debridement Measurements/Treatment - Nurse 1 - General Ulcer Assessment Start: 07/29/25 15:35 Freq: Status: Active Protocol: CHEL Activity Type Activity Date Activity User E-sign Co-sign Detail Recorded Client Recorded Date Recorded By Document 07/29/25 15:35 [place] [id number] 07/29/25 15:42 [place] 07/29/25 15:35 - Today's Visit Information Type of service Follow-up Visit (Physician/BUSINESS LAW INSTRUCTOR ) Arrival Mode Ambulatory, Wheelchair Accompanied by Patient Identification Verified (Name & Yes ) Safety Precautions Fall Prevention Vital Signs Temperature (97.8 F-99.1 F) 98 F Temperature Source Temporal Pulse Rate (60-100) 96 Pulse Location Monitor Respiratory Rate (12-18) 18 Respiratory rate source Observation Oxygen Delivery Method Room Air Blood Pressure (90/60-120/80) 117/63 Blood Pressure Mean (mm Hg) 81 Source Monitor Position Sitting Blood Pressure Location Right Arm History Since Last Visit- (Skip if this is Patient's initial visit) Has dressing in place as prescribed Yes Has compression in place as prescribed Yes Has offloadiing in place as prescribed Yes Experienced any changes in pain level or Yes management Left Footwear Regular Shoe Right Footwear Regular Shoe Pain Scale: 0-10 Numeric Is Patient Pain Free? Yes WC - Nurse 1 - General Ulcer Measurement Start: 07/29/25 15:35 Freq: Status: Active Protocol: Activity Type Activity Date Activity User E-sign Co-sign Detail Recorded Client Recorded Date Recorded By Document 07/29/25 15:35 [place] [id number] 07/29/25 15:42 [place] 07/29/25 15:35 Wound Center Nurse 1 #2 L Heel -Current Size (cm) - Length 6.5 -Current Size (cm) - Width 3.5 -Current Size (cm) - Depth 0.2 -Total Square Cm 22.75 -Date of Last Picture (Recall this 07/29/25 field) -Photo Taken Yes -Tunneling No -Undermining/Tunneling No -Circular Undermining No -Exudate Amt Medium -Exudate Type Serous -Wound Margin Thickened & Rolled Under -Granulation Amt Medium (34-66%) -Granulation Quality Pale,[place] -Necrosis Amt Medium (34-66%) -Necrotic Tissue Type Adherent Slough -Texture (Andreea-wound Skin Appearance) Assessed, Induration -Moisture (Andreea-wound Skin Appearance) Assessed, Maceration -Color (Andreea-wound Skin Appearance) Assessed, Erythema, Mottled,[place] -Temperature (Andreea-wound Skin No Abnormality Appearance) (Pt Warm) -Tenderness on Palpation (Andreea-wound No Skin Appearance) -Ulcer Cleansing Soap and Water -Foul Odor after Cleansing No -Anesthetic Used 5% Lidocaine Gel #1 Sacral Cluster -Current Size (cm) - Length 2.8 -Current Size (cm) - Width 1.3 -Current Size (cm) - Depth 3.4 -Total Square Cm 3.64 -Date of Last Picture (Recall this 07/29/25 field) -Photo Taken Yes -Tunneling No -Undermining/Tunneling Yes -Undermining/Tunneling Starts (O'clock 12 ) -Undermining/Tunneling Ends (O'clock) 4 -Maximum Distance (cm) 3.4 -Circular Undermining No -Exudate Amt Medium -Exudate Type Serosanguineous -Wound Margin Thickened & Rolled Under -Granulation Amt Large (67-100%) -Granulation Quality Pale,[place] -Necrosis Amt Small (1-33%) -Necrotic Tissue Type Adherent Slough -Texture (Andreea-wound Skin Appearance) Assessed -Moisture (Andreea-wound Skin Appearance) Assessed -Color (Andreea-wound Skin Appearance) Assessed -Temperature (Andreea-wound Skin No Abnormality Appearance) (Pt Warm) -Tenderness on Palpation (Andreea-wound No Skin Appearance) -Ulcer Cleansing Soap and Water -Foul Odor after Cleansing No -Anesthetic Used 5% Lidocaine Gel Lower Limb Edema Present NA WC - Nurse 2 - General Ulcer CM Notes Start: 07/29/25 15:35 Freq: Status: Active Protocol: Activity Type Activity Date Activity User E-sign Co-sign Detail Recorded Client Recorded Date Recorded By Document 07/29/25 16:01 [id number] 07/29/25 16:03 MARK ANTHONY 07/29/25 16:01 Wound Center Nurse 2 #2 L Heel -Time 16:01 -Correct Patient Yes -Correct Side, Site, Position Yes -Correct Procedure Yes -Procedure Performed Yes -Type of Procedure Debridement -Clinical Debridement Muscle / Fascia -Tissue Removed Fascia -Post Debridement (cm) - Length 6.5 -Post Debridement (cm) - Width 3.5 -Post Debridement (cm) - Depth 0.2 -Total Square (Post) (cm) 22.75 -Area of Debridement (cm) - Length 6.5 -Area of Debridement (cm) - Width 3.5 -Total Square (Area) (cm) 22.75 -Tunneling No -Undermining/Tunneling No -Circular Undermining No -Wound/Ulcer Outcome Not Healed -Ulcer Cleansing Rinsed/ Irrigated with Saline -Foul Odor after Cleansing No -Bioengineered Tissue No -Bleeding Controlled with Pressure -Treatment Response Procedure Tolerated Well -Offloading Yes -Type of Offloading Surgical Shoe -Debridement - Muscle / Fascia, 1st Yes 20sq cm -Debridement, Muscle/Fascia, ea addt'l 1 20sq cm or part thereof #1 Sacral Cluster -Correct Patient Yes -Correct Side, Site, Position No -Correct Procedure No -Procedure Performed No -Wound/Ulcer Outcome Not Healed -Debridement - Subq, 1st 20sq cm No Pain Scale: 0-10 Numeric Is Patient Pain Free? Yes - Nurse 3 - General Ulcer D/C NN Start: 07/29/25 15:35 Freq: Status: Active Protocol: Activity Type Activity Date Activity User E-sign Co-sign Detail Recorded Client Recorded Date Recorded By Document 07/29/25 16:03 MARK ANTHONY [id number] 07/29/25 16:04 MARK ANTHONY 07/29/25 16:03 Wound Care Center Nurse 3 #2 L Heel -Ulcer Cleansing Rinsed/ Irrigated with Saline -Foul Odor after Cleansing No -Primary Dressing Applied Promogran Deirdre Matter -Primary Dressing Covered/Secured with Dry Gauze & Roll Gauze, Secured with Tape -Promogran Deirdre Matter 1 #1 Sacral Cluster -Ulcer Cleansing Soap and Water -NPWT Application Charge NPWT </= 50 sq cm ($) -Foam Supply Charges Black Foam Medium,Patient Supplied Dressing -Black Foam, Medium 0 Pain Scale: 0-10 Numeric Is Patient Pain Free? Yes - Visit Discharge Discharge Condition Stable Ambulatory Status Wheelchair Transportation Private Auto Accompanied by Medication Reconcilliation completed & Yes provided to patient/care provider Clinical Summary of Care Provided Yes Assessment/Plan Assessment/Plan (1) Sacral decubitus ulcer, stage III: CODE(S): L89.153 - Pressure ulcer of sacral region, stage 3 (2) Diabetic foot ulcer: CODE(S): E11.621 - Type 2 diabetes mellitus with foot ulcer; L97.509 - Non-pressure chronic ulcer of other part of unspecified foot with unspecified severity PLAN: Plan Plan from 29 July 2025 sacral wound We reviewed the biopsy of the wound which did not demonstrate any malignancy Concern for osteomyelitis on the sacral MRI Referring to infectious disease to best manage as there is no exposed bone at the base of the wound After an extensive discussion regarding pressure offloading, patient is not curr ently interested in any sacral wound debridement/reconstruction at this time, but may choose to do so in the future (we are going to continue to discuss as a team). Heel wound He is not interested in any reconstruction at this time (yeah I offered debridement and reconstruction with dermal substitute and skin grafting but he would need to pressure offload and prevent shear forces). He is not interested in this option at this time. He is not interested in any surgical intervention as he is concerned about the postoperative care and potential for failure of surgery. I spoke with him and suggested a second opinion, some referring him to Dr. Casas, who is a partner at the wound care center and a automotive alignment specialist. Patient happy with the plan. Follow-up with me in 2 weeks after he sees Dr. Casas
--- NOTE | 2025-07-31 14:32 | WC ---
PHOTO-LEFT HEEL 07/29/25
--- NOTE | 2025-07-31 14:33 | WC ---
PHOTO-SACRAL 07/29/25
[2025-08-07 09:56] VITALS: BP 115/69; PULSE 91; RESP 115; TEMP 35.9
--- NOTE | 2025-08-08 09:16 | WC ---
PHOTO: LEFT HEEL 08/07/25
--- NOTE | 2025-08-09 10:18 | WC ---
received call from [facility] Trish - states went to change pts wound vac on sacrum and wound bed was white, yellow/green drainage and a foul odor even after cleaning. Asking if Dr. Sewell would like wound culture or any other orders. Backline sent to Dr. Sewell with concerns. Dr. Sewell recommends pt go to ER to be evaluated. returned call to Trish with Dr. Sewell recommendations and she will let pt/ know. pt has appoint already scheduled with Dr. Sewell on Sunday 08/12.
--- NOTE | 2025-08-10 17:17 | PCM.WC.HP ---
History of Present Illness Date of Service: 08/07/25 Chief Complaint: Follow-up on buttocks right and left heel wounds that have been going on for months. History of Wound: Chief Complaint: Follow-up on buttocks right and left heel wounds that have been going on for months. 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 He has not walked in several years. He is able to stand up to perform transfers, but does not move his ankle joints. He lays on his chair most of the day. And has developed a sacral wound that he has been following at the wound care center for as well as a left calcaneal wound in the setting of a recent hospitalization this past year, both of which he has been following here at the wound center with various advanced practice providers. Wound culture of left heel ulcer from 08/08/24 positive for MDRO Pseudomonas aeruginosa. Referral to infectious disease for treatment s/p antibiotic regimen. MRI of Pelvis 08/16/24 - Sacral decubitus ulcer with sacrococcygeal osteomyelitis. Treated by infectious disease with long-term course of IV antibiotics. Progress of Wound: The sacral ulcer with bone palpable but covered with granulation tissue and is beefy pink. There is undermining present, which is stable. The perineal ulcer (skin tear proximal to sacral ulcer) remains healed. Left medial heel appears improved with pink ulcer bed and much less non viable tissue present. He is sleeping on the low air loss mattress. 10 December 2024: Patient reports that he has not had any vascular workup for the lower extremity. He has a history of a DVT in the left lower extremity in the remote history and remains on Eliquis for anticoagulation. He reports episodic swelling in the left lower extremity that appears to be worsening the condition of the wound. He is not having any shortness of breath. He is not having any systemic signs or symptoms of infection. 17 December 2024: Doing well with wound care (VAC dressings) which started this past Tuesday. They have an appointment for ABIs and US for evaluation of the lower extremity. He has not gotten his xray of the foot yet, but is planning to get that soon (discussed). Labs obtained 14 Dec 2024 A1C 6.7 Prealb 27 Alb 3.4 Progress of Wound: Patient is 84-year-old male presenting to clinic today for follow-up evaluation of left heel wound. Patient is a referral from Dr. Sewell, in plastic surgery as he feels this is more of a podiatry consult. The patient has history of CLL and is currently on immunotherapy. He is currently nonambulatory and only using the heel for transfer. Current treatment thus far has been with moist Deirdre. He did have a history on 08/08/2024 positive for MDRO Pseudomonas, he is also being seen for a sacral gluteal osteomyelitis. Patient is currently on wound VAC for the sacral wound. Patient is months current A1c was 6.7, albumin 27 albumin 3.4. He denies trauma. Denies constitutional symptoms. No other pedal complaints at this time. 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 PAF (paroxysmal atrial fibrillation) Left ventricular hypertrophy Essential (primary) hypertension Osteoarthritis Gout 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 Hyperlipidemia Thrombocytopenic disorder Atherosclerotic heart disease of [place] coronary artery without angina pectoris HLD (hyperlipidemia) Home Medications Medication Instructions Recorded Last Taken Type aspirin 81 mg chewable tablet 81 mg PO DAILY@0800 09/20/13 02/20/25 History lorazepam 1 mg tablet 1 mg PO QHS 09/20/13 Unknown History multivitamin with folic acid 400 1 tab PO DAILY 09/20/13 Unknown History mcg tablet tramadol 50 mg tablet 50 mg PO Q4H PRN PRN Pain 09/20/13 Unknown History famotidine 20 mg tablet (Acid 20 mg PO DAILY 12/01/18 02/27/25 History Thermostat Machine Tender (famotidine)) ibrutinib 420 mg tablet (Imbruvica) 420 mg PO DAILY 12/01/18 02/26/25 History loratadine 10 mg capsule 10 mg PO DAILY 12/01/18 Unknown History cholecalciferol (vitamin D3) 25 25 mcg PO DAILY 12/30/20 Unknown History mcg (1,000 unit) tablet metformin 500 mg tablet,extended 1,000 mg PO 1200 12/30/20 Unknown History release 24 hr tamsulosin 0.4 mg capsule (Flomax) 0.4 mg PO QHS 01/11/24 Unknown History duloxetine 30 mg capsule,delayed 30 mg PO QDAY 01/18/25 02/27/25 History release finasteride 5 mg tablet 5 mg PO QDAY 01/18/25 02/27/25 History gabapentin 600 mg tablet 600 mg PO BID 01/18/25 02/27/25 History lactobacillus combination no.9 4 4,000 mmu cells PO QDAY 01/18/25 Unknown History billion cell capsule (Adult 50 Plus Probiotic) nitroglycerin 0.4 mg sublingual 0.4 mg sublingual Q5M PRN chest 01/18/25 Unknown Rx tablet pain #25 tabs pyridoxine (vitamin B6) 100 mg 200 mg PO DAILY 01/18/25 Unknown History tablet simvastatin 20 mg tablet 20 mg PO DAILY #90 tabs 01/18/25 Unknown Rx metoprolol succinate 25 mg 25 mg PO QHS 02/13/25 Unknown History tablet,extended release 24 hr ciprofloxacin 500 mg/5 mL oral 500 mg PO Q1-4H 07/24/25 Unknown History suspension Allergy/AdvReac Type Severity Reaction Status Date / Time linezolid Allergy Severe Disoriented Verified 07/24/25 09:52 niacin (From Niaspan Allergy Severe Unknown Verified 07/24/25 09:48 Extended-Release) Sulfa (Sulfonamide AdvReac Swelling Verified 07/24/25 09:48 Antibiotics) Family History Father Cancer lymphoma Myocardial infarction CAD (coronary artery disease) Mother CVA (cerebral vascular accident) Cancer HLD (hyperlipidemia) Hypertension Brother Myocardial infarction CAD (coronary artery disease) Sister Breast cancer Surgical History History of cardiac catheterization Hx of right cataract extraction Hx of colonoscopy H/O arthroscopic knee surgery History of lithotripsy History of repair of rotator cuff History of coronary artery stent placement (05/13/10) Social History Smoking Status: Never smoker alcohol intake: former substance use type: does not use caffeine: No what type of physical activity do you participate in: none seatbelt use: always do you feel safe at home: Yes Physical Exam Narrative Vascular: DP and PT pulses are palpable to left extremity. CFT is brisk. No erythema or drainage appreciated. Skin temperature is warm to warm from proximal ankle to distal digit without focal increase appreciated. Neurological: Light touch is intact. Patient does not respond to painful stimuli. Dermatological: Full-thickness wound to the left heel measuring at 6.0 x 4.2 x 0.2 cm. Wound base is fibrogranular nature. Negative probe to bone. Excisional debridement down to including subcutaneous tissue, fascia and muscle with a number 5 mm dermal curette to the full-thickness wound to the left heel. Predebridement measurement was 5.8 x 4.0 x 0.1 cm. Postdebridement measurement is 6.0 x 4.2 x 0.2 cm. Culture taken Musculoskeletal: No pain to palpation to full-thickness wound to left lower extremity. No pain with calf compression. Debridement Note Debridement Note Debridement Free Text: Excisional debridement down to including subcutaneous tissue, fascia and muscle with a number 5 mm dermal curette to the full-thickness wound to the left heel. Predebridement measurement was 5.8 x 4.0 x 0.1 cm. Postdebridement measurement is 6.0 x 4.2 x 0.2 cm. Culture taken Post-Debridement Measurements and Additional Note: Post-Debridement Measurements/Treatment - Nurse 1 - General Ulcer Assessment Start: 07/29/25 15:35 Freq: Status: Active Protocol: CHEL Activity Type Activity Date Activity User E-sign Co-sign Detail Recorded Client Recorded Date Recorded By Document 07/29/25 15:35 MT [id number] 07/29/25 15:42 MT Document 08/07/25 09:56 [id number] 08/07/25 10:03 07/29/25 08/07/25 15:35 09:56 - Today's Visit Information Type of service Follow-up Visit Follow-up Visit (Physician/BILLET DRILLER (Physician/BILLET DRILLER ) ) Arrival Mode Ambulatory, Wheelchair Wheelchair Transfer Assistance None Accompanied by Patient Identification Verified (Name & Yes Yes ) Safety Precautions Fall Prevention Vital Signs Temperature (97.8 F-99.1 F) 98 F 96.6 F L Temperature Source Temporal Temporal Pulse Rate (60-100) 96 91 Pulse Location Monitor Monitor Respiratory Rate (12-18) 18 115 H Respiratory rate source Observation Observation Oxygen Delivery Method Room Air Room Air Blood Pressure (90/60-120/80) 117/63 115/69 Blood Pressure Mean 81 84 Source Monitor Monitor Position Sitting Semi-Fowlers Blood Pressure Location Right Arm Right Arm History Since Last Visit- (Skip if this is Patient's initial visit) Have you changed medications since your No last visit? Any new allergies or adverse reactions No Had a fall/change in ADL's that may No increase risk of falls Signs or symptoms of abuse and/or No neglect since last visit Have you been in the hospital since your No last visit? Has dressing in place as prescribed Yes Yes Has compression in place as prescribed Yes Yes Has offloadiing in place as prescribed Yes Yes Experienced any changes in pain level or Yes No management Left Footwear Regular Shoe Surgical Shoe with pressure relief insole Right Footwear Regular Shoe Regular Shoe Pain Scale: 0-10 Numeric Is Patient Pain Free? Yes Yes - Nurse 1 - General Ulcer Measurement Start: 07/29/25 15:35 Freq: Status: Active Protocol: Activity Type Activity Date Activity User E-sign Co-sign Detail Recorded Client Recorded Date Recorded By Document 07/29/25 15:35 AR [id number] 07/29/25 15:42 AR Document 08/07/25 09:56 [id number] 08/07/25 10:03 07/29/25 08/07/25 15:35 09:56 Wound Center Nurse 1 #2 L Heel -Current Size (cm) - Length 6.5 5.0 -Current Size (cm) - Width 3.5 5.5 -Current Size (cm) - Depth 0.2 0.4 -Total Square Cm 22.75 27.50 -Date of Last Picture (Recall this 07/29/25 08/07/25 field) -Photo Taken Yes Yes -Epithelialization None Present -Tunneling No No -Undermining/Tunneling No No -Circular Undermining No No -Exudate Amt Medium Large -Exudate Type Serous Yellow/Green -Wound Margin Thickened & Distinct, Rolled Under Outline Attached -Granulation Amt Medium (34-66%) Medium (34-66%) -Granulation Quality Pale,Shickley Shickley -Slough/Fibrin Yes -Necrosis Amt Medium (34-66%) Medium (34-66%) -Necrotic Tissue Type Adherent Slough Adherent Slough -Texture (Andreea-wound Skin Appearance) Assessed, Assessed Induration -Moisture (Andreea-wound Skin Appearance) Assessed, Assessed, Maceration Maceration -Color (Andreea-wound Skin Appearance) Assessed, Assessed Erythema, Mottled,Palor -Temperature (Andreea-wound Skin No Abnormality No Abnormality Appearance) (Pt Warm) (Pt Warm) -Tenderness on Palpation (Andreea-wound No No Skin Appearance) -Ulcer Cleansing Soap and Water Soap and Water -Foul Odor after Cleansing No No -Anesthetic Used 5% Lidocaine 5% Lidocaine Gel Gel #1 Sacral Cluster -Current Size (cm) - Length 2.8 -Current Size (cm) - Width 1.3 -Current Size (cm) - Depth 3.4 -Total Square Cm 3.64 -Date of Last Picture (Recall this 07/29/25 field) -Photo Taken Yes -Tunneling No -Undermining/Tunneling Yes -Undermining/Tunneling Starts (O'clock 12 ) -Undermining/Tunneling Ends (O'clock) 4 -Maximum Distance (cm) 3.4 -Circular Undermining No -Exudate Amt Medium -Exudate Type Serosanguineous -Wound Margin Thickened & Rolled Under -Granulation Amt Large (67-100%) -Granulation Quality Pale,Shickley -Necrosis Amt Small (1-33%) -Necrotic Tissue Type Adherent Slough -Texture (Andreea-wound Skin Appearance) Assessed -Moisture (Andreea-wound Skin Appearance) Assessed -Color (Andreea-wound Skin Appearance) Assessed -Temperature (Andreea-wound Skin No Abnormality Appearance) (Pt Warm) -Tenderness on Palpation (Andreea-wound No Skin Appearance) -Ulcer Cleansing Soap and Water -Foul Odor after Cleansing No -Anesthetic Used 5% Lidocaine Gel Lower Limb Edema Present NA WC - Nurse 2 - General Ulcer CM Notes Start: 07/29/25 15:35 Freq: Status: Active Protocol: Activity Type Activity Date Activity User E-sign Co-sign Detail Recorded Client Recorded Date Recorded By Document 07/29/25 16:01 MARK ANTHONY [id number] 07/29/25 16:03 JF Document 08/07/25 10:46 [id number] 08/07/25 10:53 07/29/25 08/07/25 16:01 10:46 Wound Center Nurse 2 #2 L Heel -Time 16:01 10:50 -Correct Patient Yes Yes -Correct Side, Site, Position Yes Yes -Correct Procedure Yes Yes -Procedure Performed Yes Yes -Type of Procedure Debridement Debridement -Clinical Debridement Muscle / Fascia Muscle / Fascia -Tissue Removed Fascia Muscle -Post Debridement (cm) - Length 6.5 6.0 -Post Debridement (cm) - Width 3.5 4.2 -Post Debridement (cm) - Depth 0.2 0.2 -Total Square (Post) (cm) 22.75 25.20 -Area of Debridement (cm) - Length 6.5 6.0 -Area of Debridement (cm) - Width 3.5 4.2 -Total Square (Area) (cm) 22.75 25.20 -Tunneling No No -Undermining/Tunneling No No -Circular Undermining No No -Wound/Ulcer Outcome Not Healed Not Healed -Ulcer Cleansing Rinsed/ Rinsed/ Irrigated with Irrigated with Saline Saline -Foul Odor after Cleansing No No -Bioengineered Tissue No No -Bleeding Controlled with Pressure Pressure -Treatment Response Procedure Procedure Tolerated Well Tolerated Well -Offloading Yes No -Type of Offloading Surgical Shoe -Debridement - Muscle / Fascia, 1st Yes Yes 20sq cm -Debridement, Muscle/Fascia, ea addt'l 1 1 20sq cm or part thereof #1 Sacral Cluster -Correct Patient Yes -Correct Side, Site, Position No -Correct Procedure No -Procedure Performed No -Wound/Ulcer Outcome Not Healed -Debridement - Subq, 1st 20sq cm No Pain Scale: 0-10 Numeric Is Patient Pain Free? Yes Yes - Nurse 3 - General Ulcer D/C NN Start: 07/29/25 15:35 Freq: Status: Active Protocol: Activity Type Activity Date Activity User E-sign Co-sign Detail Recorded Client Recorded Date Recorded By Document 07/29/25 16:03 [id number] 07/29/25 16:04 Document 08/07/25 11:11 [id number] 08/07/25 11:12 07/29/25 08/07/25 16:03 11:11 Wound Care Center Nurse 3 #2 L Heel -Ulcer Cleansing Rinsed/ Not Cleansed Irrigated with Saline -Foul Odor after Cleansing No No -Primary Dressing Applied Promogran Hysept Deirdre Matter -Primary Dressing Covered/Secured with Dry Gauze & Dry Gauze & Roll Gauze, Roll Gauze, Secured with Secured with Tape Tape -Hysept 1 -Promogran Deirdre Matter 1 #1 Sacral Cluster -Ulcer Cleansing Soap and Water -NPWT Application Charge NPWT </= 50 sq cm ($) -Foam Supply Charges Black Foam Medium,Patient Supplied Dressing -Black Foam, Medium 0 LLE -Lotion applied to leg before No compression wrap -Tubular Bandage Single Layer -Size of Tubigrip Used Size E -Size E ($) 1 Pain Scale: 0-10 Numeric Is Patient Pain Free? Yes Yes WC - Visit Discharge Discharge Condition Stable Stable Ambulatory Status Wheelchair Wheelchair Transportation Private Auto Private Auto Accompanied by Medication Reconcilliation completed & Yes provided to patient/care provider Clinical Summary of Care Provided Yes Lab / Micro Data Micro: Microbiology 08/07/25 10:47 Wound - Heel, Left Gram Stain - Final 08/07/25 10:47 Wound - Heel, Left Wound Culture - Final Meth. resistant Staph. aureus Corynebacterium striatum 08/07/25 10:47 Wound - Heel, Left Anaerobic Culture - Final No anaerobic bacteria isolated. Assessment/Plan Assessment/Plan (1) Non-pressure chronic ulcer of other part of left foot with necrosis of muscle: CODE(S): L97.523 - Non-pressure chronic ulcer of other part of left foot with necrosis of muscle PLAN: Patient was examined and evaluated. All findings were discussed with the patient. All questions were answered to the patient's satisfaction. Excisional debridement down to including subcutaneous tissue, fascia and muscle with a number 5 mm dermal curette to the full-thickness wound to the left heel. Predebridement measurement was 5.8 x 4.0 x 0.1 cm. Postdebridement measurement is 6.0 x 4.2 x 0.2 cm. Culture taken. Patient will be placed on antibiotics as needed. Full-thickness wound was dressed with Dakin's dry sterile dressing light compression wrap was donned to left lower extremity. The patient's will change daily. Continued education about strict blood sugar control. No plan for surgical intervention at this time however if the patient shows slow improvement will take the patient to operating room perform surgical washout on skin graft application which she was understanding of. Patient will follow-up with Dr. Casas in 1 week (2) Acute painful diabetic polyneuropathy: CODE(S): E11.42 - Type 2 diabetes mellitus with diabetic polyneuropathy
[2025-08-12 11:18] VITALS: BP 114/62; PULSE 87; RESP 16; TEMP 36.1; BMI 28.7
--- NOTE | 2025-08-12 12:02 | PCM.WC.PN ---
History of Present Illness Date of Service: 08/12/25 Chief Complaint: Follow-up on buttocks right and left heel wounds that have been going on for months. History of Wound: Chief Complaint: Follow-up on buttocks right and left heel wounds that have been going on for months. 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 He has not walked in several years. He is able to stand up to perform transfers, but does not move his ankle joints. He lays on his chair most of the day. And has developed a sacral wound that he has been following at the wound care center for as well as a left calcaneal wound in the setting of a recent hospitalization this past year, both of which he has been following here at the wound center with various advanced practice providers. Wound culture of left heel ulcer from 08/08/24 positive for MDRO Pseudomonas aeruginosa. Referral to infectious disease for treatment s/p antibiotic regimen. MRI of Pelvis 08/16/24 - Sacral decubitus ulcer with sacrococcygeal osteomyelitis. Treated by infectious disease with long-term course of IV antibiotics. Progress of Wound: The sacral ulcer with bone palpable but covered with granulation tissue and is beefy pink. There is undermining present, which is stable. The perineal ulcer (skin tear proximal to sacral ulcer) remains healed. Left medial heel appears improved with pink ulcer bed and much less non viable tissue present. He is sleeping on the low air loss mattress. 10 December 2024: Patient reports that he has not had any vascular workup for the lower extremity. He has a history of a DVT in the left lower extremity in the remote history and remains on Eliquis for anticoagulation. He reports episodic swelling in the left lower extremity that appears to be worsening the condition of the wound. He is not having any shortness of breath. He is not having any systemic signs or symptoms of infection. 17 December 2024: Doing well with wound care (VAC dressings) which started this past Tuesday. They have an appointment for ABIs and US for evaluation of the lower extremity. He has not gotten his xray of the foot yet, but is planning to get that soon (discussed). Labs obtained 14 Dec 2024 A1C 6.7 Prealb 27 Alb 3.4 Progress of Wound: Patient is 84-year-old male presenting to clinic today for follow-up evaluation of left heel wound. Patient is a referral from Dr. Sewell, in plastic surgery as he feels this is more of a podiatry consult. The patient has history of CLL and is currently on immunotherapy. He is currently nonambulatory and only using the heel for transfer. Current treatment thus far has been with moist Deirdre. He did have a history on 08/08/2024 positive for MDRO Pseudomonas, he is also being seen for a sacral gluteal osteomyelitis. Patient is currently on wound VAC for the sacral wound. Patient is months current A1c was 6.7, albumin 27 albumin 3.4. He denies trauma. Denies constitutional symptoms. No other pedal complaints at this time. Subjective Subjective 07 January 2025: Imaging reviewed. No osteomyelitis on the xray of the foot. There were no DVT on venous study. Arterial study demonstrated noncompressible vessels 2/2 to significant calcifications of the vasculature Patient has been doing well overall, however. Tolerating dressing changes. 21 January 2025: Doing well overall with dressing changes except there is been an odor coming from the sacral wound after the VAC changes, his would like us to look today. Patient has seen Dr. Farooq (heart doctor) this past week on 19 January 2025 and he discontinued his amiodarone and his blood thinner (patient has been regular with rate and rhythm). He has been off the blood thinner for greater than 48 hours now. Patient also has a follow-up of his ABIs with vascular surgery on 23 January 2025 (2 days from now) To assess need for intervention for increased blood flow to the foot wound. There is another area of concern in the left forearm today that the patient and his would like me to biopsy. It has been there for several months and growing. It is a scaly/scabby lesion on the left proximal dorsal forearm. Biopsy results (from biopsy on 07 January 2025) of the heel wound did not demonstrate any signs of malignancy. 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 This was discussed with the patient and his . Patient doing well overall and is tolerating the TheraSkin applications to the heel. Wound VAC dressing changes are going well as well 18 Feb 2025: Doing well overall. Tolerating theraskin. On the scheduled for excision of the SSC of the left forearm next week. 27 Feb 2025: Tolerating TheraSkin. No fevers chills. All questions answered about once his excision procedure for left forearm squamous cell carcinoma. Patient has been seeing his oncologist and has been getting infusions to increase his white blood cell counts and promote healing. 04 Mar 2025: Reviewed pathology with the patient and his at today's visit from the left forearm squamous cell carcinoma excision. It was negative for malignancy, margins were free from carcinoma. Patient tolerated the procedure well and is feeling well. No pain. No numbness in the forearm. No drainage or fevers chills. Patient here for the foot wound and the sacral wound is well. Reports excellent VAC changes and tolerance of the TheraSkin. 14 Mar 2025: Doing well overall. No appointment this past Tuesday secondary to and TheraSkin fell off from the heal on its own yesterday. There is notes there is scan ordered for today and it will be replaced on this coming Tuesday. 18 March 2025: Doing well overall. No significant change since last appoint. Endorses good dressing changes 25 March 2025: Doing well overall. No big changes. Tolerating TheraSkin treatments and VAC changes. 22 March 2025: Doing well overall. Tolerating TheraSkin 08 April 2025: Tolerating TheraSkin. No fevers chills or drainage. Reports improvement in the size of the sacral wound and persistent heel wound 22 April 2025: The patient is an 84-year-old male presenting with wound and osteomyelitis of the left heal and associated need for wound care. The osteomyelitis was identified through a culture that grew bacteria, indicating an infection in the bone. The patient has been on antibiotics for infection management, with four days remaining in the current course. Patient has been on amoxicillin and linezolid per infectious disease. He will have an appointment with them later this week. The patient has an open wound with granulation tissue, which is being monitored for healing progress. There is no exposed bone currently felt, suggesting some improvement in the wound condition. The wound care plan includes the potential use of Integra and a skin graft once the infection is controlled. Attestation: Documentation on this patient encounter was supported using ambient scribe technology/ voice AI technology. The patient consented to recording for the purpose of documenting the encounter. Provider reviewed content of the generated note prior to signature. 06 MAY 2025: The patient is an 84-year-old male presenting with chronic wounds on the left heel and sacrum. The left heel wound measures 4.5 cm by 2.6 cm and has no exposed bone, only exposed plantar fascia. The sacral wound is a stage 3 ulcer measuring 2 cm by 1.5 cm, also with no exposed bone. The patient reports that the wounds are healing, with home health nurses noting significant improvement over time. The patient has been receiving infusions, which may have contributed to the healing process. The patient has been advised against continued antibiotic use by the infectious disease physician due to potential risks outweighing benefits. The patient also experiences neuropathy, which is exacerbated by back issues, causing significant discomfort in the leg. The patient is considering steroid injections for back pain, although aware of potential impacts on wound healing (which was discussed at the visit today). The patient has a history of skin cancer diagnosed earlier this year, with surgery performed in February. ros: - Integumentary: Reports healing wounds on left heel and sacrum - Neurological: Reports neuropathy and leg discomfort due to back issues Attestation: Documentation on this patient encounter was supported using ambient scribe technology/ voice AI technology. The patient consented to recording for the purpose of documenting the encounter. Provider reviewed content of the generated note prior to signature. 27 May 2025: Doing well overall. Reports that the heal wound seems smaller. 10 June 2025: Discussed the extensive undermining of the sacral wound. There is no exposed bone but discussed MRI and nutrition labs in anticipation for potential surgery as the patient is more willing to potentially go along with this plan as we are seeing limited improvement. As for the foot wound, patient continues the Deirdre dressing changes which seem to be helping. No exposed bone. Wound is smaller 26 Jun 2025: Doing well overall. Discussed labs (A1c of 8, Albumin 3.6, Platelets 143, and Hgb 11.9) Patient is not interested in surgery at this point as he does not want to be in the hospital. He is worried also that he will pivot and shear any skin grafting that is done on the foot as he uses this region to pivot. 08 July 2025: Discussed with the patient and his the results of the MRI (no read from the radiologist yet). Per my read I do see evidence that the sacral/coccygeal region was eroded at some point secondary to osteomyelitis. I discussed with them potential implications, and how there is no current the exposed bone and this may be from previous osteomyelitis which may or may not be contributing to the current state of the wound. 29 July 2025: Recently went to the ED 2/2 concern from home health about the left calf wound. He was not admitted and was placed on oral antibiotics. [facility] for evaluation of a pressure offloading boot/splint. This was unsuccessful CURRENT ENCOUNTER, 12 August 2025: Patient is seeing Dr. Casas for the heel and he is assuming care of the heel wound. Mr. Napoles has agreed to go to the operating room with Dr. Casas. Will defer care to Dr. Casas for that he will. Some concern for infection from home health of the sacral wound. Here to examine it today. The patient is are having issues with the VAC holding suction and therefore there is some concern for biofilm buildup Objective Data Objective Data Vital Signs: Vital Signs Temp Pulse Resp BP O2 Del Method 96.9 F L 87 16 114/62 Room Air 08/12/25 11:18 08/12/25 11:18 08/12/25 11:18 08/12/25 11:18 08/12/25 11:18 Oxygen Delivery Method Room Air Weight: 200 lb Body Mass Index (BMI) 28.7 Lab / Micro Data Micro: Microbiology 08/07/25 10:47 Wound - Heel, Left Gram Stain - Final 08/07/25 10:47 Wound - Heel, Left Wound Culture - Final Meth. resistant Staph. aureus Corynebacterium striatum 08/07/25 10:47 Wound - Heel, Left Anaerobic Culture - Final No anaerobic bacteria isolated. Charges/Coding Procedures Integumentary [id number]: [id number] Ginette subq tissue 20 sq cm/< Physical Exam Narrative Sacral wound Stage 3 Wound is 2.5 x 2.5 and undermines approximately about 2.5 cm medially and superiorly. It is 2 cm deep. no purulence/no exposed bone. Good granulation tissue at the base. No exposed bone No cardinal signs of inflammation (no swelling, redness, warmth, or tenderness to palpation). No surrounding induration or fluid collections There was some biofilm over the sacral wound, which was debrided away Debridement Note Debridement Note Wound debrided: Sacral wound Laterality: Not Applicable Wound Grade/Stage: Stage III Type of Debridement: Excisional debridement Anesthesia Used: 4% Lidocaine Solution and - (1% lidocaine with 1-200,000 epinephrine (10 cc total was injected) ) Depth: in the subcutaneous layer Percentage of wound debrided: 100 Instrument Used: 7mm curette and Forceps Tissue Removed: Fibrinous exudate and biofilm Severity: Fat Layer Exposed Amount of bleeding with debridement: Moderate Bleeding Controlled with: Pressure and Silver Nitrate Patient tolerated procedure: Patient tolerated procedure well Post-Debridement Measurements and Additional Note: Post-Debridement Measurements/Treatment - Nurse 1 - General Ulcer Assessment Start: 07/29/25 15:35 Freq: Status: Active Protocol: [email or web address] y AmigosRomel Activity Type Activity Date Activity User E-sign Co-sign Detail Recorded Client Recorded Date Recorded By Document 07/29/25 15:35 MT [id number] 07/29/25 15:42 MT Document 08/07/25 09:56 GM [id number] 08/07/25 10:03 GM Document 08/12/25 11:18 TS [id number] 08/12/25 11:37 TS 07/29/25 08/07/25 08/12/25 15:35 09:56 11:18 - Today's Visit Information Type of service Follow-up Visit Follow-up Visit Follow-up Visit (Physician/RESIDENCE COUNSELOR (Physician/RESIDENCE COUNSELOR (Physician/RESIDENCE COUNSELOR ) ) ) Arrival Mode Ambulatory, Wheelchair Wheelchair Wheelchair Transfer Assistance None Accompanied by Patient Identification Verified (Name & Yes Yes Yes ) Patient Requires Transmission-Based No Precautions Safety Precautions Fall Prevention Fall Prevention Height and Weight Height 5 ft 10 in Weight 200 lb Weight in Pounds 200.0 lbs Weight Measurement Method Stated by Patient Body Mass Index (BMI) 28.7 BMI Classification Overweight Vital Signs Temperature (97.8 F-99.1 F) 98 F 96.6 F L 96.9 F L Temperature Source Temporal Temporal Temporal Pulse Rate (60-100) 96 91 87 Pulse Location Monitor Monitor Monitor Respiratory Rate (12-18) 18 115 H 16 Respiratory rate source Observation Observation Observation Oxygen Delivery Method Room Air Room Air Room Air Blood Pressure (90/60-120/80) 117/63 115/69 114/62 Blood Pressure Mean (mm Hg) 81 84 79 Source Monitor Monitor Monitor Position Sitting Semi-Fowlers Sitting Blood Pressure Location Right Arm Right Arm History Since Last Visit- (Skip if this is Patient's initial visit) Have you changed medications since your No No last visit? Any new allergies or adverse reactions No No Had a fall/change in ADL's that may No No increase risk of falls Signs or symptoms of abuse and/or No No neglect since last visit Have you been in the hospital since your No No last visit? Has dressing in place as prescribed Yes Yes No Has compression in place as prescribed Yes Yes N/A Has offloadiing in place as prescribed Yes Yes N/A Experienced any changes in pain level or Yes No management Left Footwear Regular Shoe Surgical Shoe Surgical Shoe with pressure with pressure relief insole relief insole Right Footwear Regular Shoe Regular Shoe Regular Shoe Pain Scale: 0-10 Numeric Is Patient Pain Free? Yes Yes Yes WC - Nurse 1 - General Ulcer Measurement Start: 07/29/25 15:35 Freq: Status: Active Protocol: Activity Type Activity Date Activity User E-sign Co-sign Detail Recorded Client Recorded Date Recorded By Document 07/29/25 15:35 RI [id number] 07/29/25 15:42 RI Document 08/07/25 09:56 [id number] 08/07/25 10:03 Document 08/12/25 11:18 TS [id number] 08/12/25 11:37 TS 07/29/25 08/07/25 08/12/25 15:35 09:56 11:18 Wound Center Nurse 1 #2 L Heel -Current Size (cm) - Length 6.5 5.0 -Current Size (cm) - Width 3.5 5.5 -Current Size (cm) - Depth 0.2 0.4 -Total Square Cm 22.75 27.50 -Date of Last Picture (Recall this 07/29/25 08/07/25 field) -Photo Taken Yes Yes -Epithelialization None Present -Tunneling No No -Undermining/Tunneling No No -Circular Undermining No No -Exudate Amt Medium Large -Exudate Type Serous Yellow/Green -Wound Margin Thickened & Distinct, Rolled Under Outline Attached -Granulation Amt Medium (34-66%) Medium (34-66%) -Granulation Quality Pale,Capitol View Capitol View -Slough/Fibrin Yes -Necrosis Amt Medium (34-66%) Medium (34-66%) -Necrotic Tissue Type Adherent Slough Adherent Slough -Texture (Andreea-wound Skin Appearance) Assessed, Assessed Induration -Moisture (Andreea-wound Skin Appearance) Assessed, Assessed, Maceration Maceration -Color (Andreea-wound Skin Appearance) Assessed, Assessed Erythema, Mottled,Palor -Temperature (Andreea-wound Skin No Abnormality No Abnormality Appearance) (Pt Warm) (Pt Warm) -Tenderness on Palpation (Andreea-wound No No Skin Appearance) -Ulcer Cleansing Soap and Water Soap and Water -Foul Odor after Cleansing No No -Anesthetic Used 5% Lidocaine 5% Lidocaine Gel Gel #1 Sacral Cluster -Combined with other wound No -Current Size (cm) - Length 2.8 3.7 -Current Size (cm) - Width 1.3 2 -Current Size (cm) - Depth 3.4 2.6 -Total Square Cm 3.64 7.4 -Date of Last Picture (Recall this 07/29/25 08/12/25 field) -Photo Taken Yes Yes -Tunneling No No -Undermining/Tunneling Yes Yes -Undermining/Tunneling Starts (O'clock 12 7 ) -Undermining/Tunneling Ends (O'clock) 4 11 -Maximum Distance (cm) 3.4 3.1 -Circular Undermining No No -Exudate Amt Medium Large -Exudate Type Serosanguineous Yellow/Green -Wound Margin Thickened & Well Defined, Rolled Under Not Attached -Granulation Amt Large (67-100%) Large (67-100%) -Granulation Quality Pale,Capitol View Pale -Slough/Fibrin Yes -Necrosis Amt Small (1-33%) Small (1-33%) -Necrotic Tissue Type Adherent Slough Adherent Slough -Structure Exposed None/Limited to Skin Breakdown -Texture (Andreea-wound Skin Appearance) Assessed Assessed -Moisture (Andreea-wound Skin Appearance) Assessed Assessed, Maceration -Color (Andreea-wound Skin Appearance) Assessed Assessed -Temperature (Andreea-wound Skin No Abnormality No Abnormality Appearance) (Pt Warm) (Pt Warm) -Tenderness on Palpation (Andreea-wound No No Skin Appearance) -Ulcer Cleansing Soap and Water Soap and Water -Foul Odor after Cleansing No -Anesthetic Used 5% Lidocaine 5% Lidocaine Gel Gel Lower Limb Edema Present NA WC - Nurse 2 - General Ulcer CM Notes Start: 07/29/25 15:35 Freq: Status: Active Protocol: Activity Type Activity Date Activity User E-sign Co-sign Detail Recorded Client Recorded Date Recorded By Document 07/29/25 16:01 [id number] 07/29/25 16:03 Document 08/07/25 10:46 [id number] 08/07/25 10:53 Document 08/12/25 11:50 [id number] 08/12/25 11:59 07/29/25 08/07/25 08/12/25 16:01 10:46 11:50 Wound Center Nurse 2 #2 L Heel -Time 16:01 10:50 -Correct Patient Yes Yes -Correct Side, Site, Position Yes Yes -Correct Procedure Yes Yes -Procedure Performed Yes Yes -Type of Procedure Debridement Debridement -Clinical Debridement Muscle / Fascia Muscle / Fascia -Tissue Removed Fascia Muscle -Post Debridement (cm) - Length 6.5 6.0 -Post Debridement (cm) - Width 3.5 4.2 -Post Debridement (cm) - Depth 0.2 0.2 -Total Square (Post) (cm) 22.75 25.20 -Area of Debridement (cm) - Length 6.5 6.0 -Area of Debridement (cm) - Width 3.5 4.2 -Total Square (Area) (cm) 22.75 25.20 -Tunneling No No -Undermining/Tunneling No No -Circular Undermining No No -Wound/Ulcer Outcome Not Healed Not Healed -Ulcer Cleansing Rinsed/ Rinsed/ Irrigated with Irrigated with Saline Saline -Foul Odor after Cleansing No No -Bioengineered Tissue No No -Bleeding Controlled with Pressure Pressure -Treatment Response Procedure Procedure Tolerated Well Tolerated Well -Offloading Yes No -Type of Offloading Surgical Shoe -Debridement - Muscle / Fascia, 1st Yes Yes 20sq cm -Debridement, Muscle/Fascia, ea addt'l 1 1 20sq cm or part thereof #1 Sacral Cluster -Time 11:51 -Correct Patient Yes Yes -Correct Side, Site, Position No Yes -Correct Procedure No Yes -Procedure Performed No Yes -Type of Procedure Debridement -Clinical Debridement Muscle / Fascia -Tissue Removed Muscle -Post Debridement (cm) - Length 2.5 -Post Debridement (cm) - Width 2.5 -Post Debridement (cm) - Depth 2.0 -Total Square (Post) (cm) 6.25 -Area of Debridement (cm) - Length 2.5 -Area of Debridement (cm) - Width 2.5 -Total Square (Area) (cm) 6.25 -Tunneling No -Undermining/Tunneling No -Circular Undermining No -Wound/Ulcer Outcome Not Healed Not Healed -Ulcer Cleansing Rinsed/ Irrigated with Saline -Foul Odor after Cleansing No -Bioengineered Tissue No -Bleeding Controlled with Pressure,Silver Nitrate ($) -Treatment Response Procedure Tolerated Well -Offloading No -Debridement - Subq, 1st 20sq cm No -Debridement - Muscle / Fascia, 1st Yes 20sq cm Pain Scale: 0-10 Numeric Is Patient Pain Free? Yes Yes Yes - Nurse 3 - General Ulcer D/C NN Start: 07/29/25 15:35 Freq: Status: Active Protocol: Activity Type Activity Date Activity User E-sign Co-sign Detail Recorded Client Recorded Date Recorded By Document 07/29/25 16:03 [id number] 07/29/25 16:04 Document 08/07/25 11:11 [id number] 08/07/25 11:12 Document 08/12/25 11:59 [id number] 08/12/25 12:00 07/29/25 08/07/25 08/12/25 16:03 11:11 11:59 Wound Care Center Nurse 3 #2 L Heel -Ulcer Cleansing Rinsed/ Not Cleansed Irrigated with Saline -Foul Odor after Cleansing No No -Primary Dressing Applied Promogran Hysept Deirdre Matter -Primary Dressing Covered/Secured with Dry Gauze & Dry Gauze & Roll Gauze, Roll Gauze, Secured with Secured with Tape Tape -Hysept 1 -Promogran Deirdre Matter 1 #1 Sacral Cluster -Ulcer Cleansing Soap and Water Soap and Water -Foul Odor after Cleansing No -NPWT Application Charge NPWT </= 50 sq NPWT & cm ($) Debridement (nc ) -Foam Supply Charges Black Foam Patient Medium,Patient Supplied Supplied Dressing Dressing -Black Foam, Medium 0 LLE -Lotion applied to leg before No compression wrap -Tubular Bandage Single Layer -Size of Tubigrip Used Size E -Size E ($) 1 Pain Scale: 0-10 Numeric Is Patient Pain Free? Yes Yes Yes - Visit Discharge Discharge Condition Stable Stable Stable Ambulatory Status Wheelchair Wheelchair Wheelchair Transportation Private Auto Private Auto Private Auto Accompanied by Medication Reconcilliation completed & Yes Yes provided to patient/care provider Clinical Summary of Care Provided Yes Yes Assessment/Plan Assessment/Plan (1) Sacral decubitus ulcer, stage III: CODE(S): L89.153 - Pressure ulcer of sacral region, stage 3 PLAN: Continue wound VAC changes 3 times per week No signs of infection today rather some colonization of biofilm secondary to problems with the wound VAC suction Discussed continue pressure offloading and nutrition optimization He will continue to work on his hemoglobin A1c as it was elevated Follow-up with me in 3 weeks Patient is are happy with the plan PLAN: Plan Dr. Casas assuming care of the foot wound
--- NOTE | 2025-08-13 10:32 | WC ---
[email or web address] 08/12/25
[2025-08-14 10:23] VITALS: BP 126/64; PULSE 96; RESP 16; TEMP 35.8; BMI 28.7
--- NOTE | 2025-08-14 12:35 | PN.PCM_ITS ---
History of Present Illness Date of Service: 08/14/25 Chief Complaint: Follow-up on buttocks right and left heel wounds that have been going on for months. History of Wound: Chief Complaint: Follow-up on buttocks right and left heel wounds that have been going on for months. 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 He has not walked in several years. He is able to stand up to perform transfers, but does not move his ankle joints. He lays on his chair most of the day. And has developed a sacral wound that he has been following at the wound care center for as well as a left calcaneal wound in the setting of a recent hospitalization this past year, both of which he has been following here at the wound center with various advanced practice providers. Wound culture of left heel ulcer from 08/08/24 positive for MDRO Pseudomonas aeruginosa. Referral to infectious disease for treatment s/p antibiotic regimen. MRI of Pelvis 08/16/24 - Sacral decubitus ulcer with sacrococcygeal osteomyelitis. Treated by infectious disease with long-term course of IV antibiotics. Progress of Wound: The sacral ulcer with bone palpable but covered with granulation tissue and is beefy pink. There is undermining present, which is stable. The perineal ulcer (skin tear proximal to sacral ulcer) remains healed. Left medial heel appears improved with pink ulcer bed and much less non viable tissue present. He is sleeping on the low air loss mattress. 10 December 2024: Patient reports that he has not had any vascular workup for the lower extremity. He has a history of a DVT in the left lower extremity in the remote history and remains on Eliquis for anticoagulation. He reports episodic swelling in the left lower extremity that appears to be worsening the condition of the wound. He is not having any shortness of breath. He is not having any systemic signs or symptoms of infection. 17 December 2024: Doing well with wound care (VAC dressings) which started this past Tuesday. They have an appointment for ABIs and US for evaluation of the lower extremity. He has not gotten his xray of the foot yet, but is planning to get that soon (discussed). Labs obtained 14 Dec 2024 A1C 6.7 Prealb 27 Alb 3.4 Progress of Wound: Stable full-thickness wound left heel. Subjective Subjective Patient is a 85-year-old diabetic male presented with [facility] today follow- up evaluation of full-thickness wound to left heel. Patient has been compliant with dressing changes and using Dakin's gauze and wrap. 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 Wound is still the same. There is less drainage. Malodor has improved. He denies trauma. He is offloading. Denies constitutional symptoms. No other pedal complaints at this time. Objective Data Objective Data Both wounds look better but the heel looks macerated. Scheduling him for an MRI and we will go from there. We will continue the wound VAC at 150 mL of meters mercury he is tolerating it well the wound VAC had to be removed last night because it lost its suction. Vital Signs: Vital Signs Temp Pulse Resp BP O2 Del Method 96.5 F L 96 16 126/64 H Room Air 08/14/25 10:23 08/14/25 10:23 08/14/25 10:23 08/14/25 10:23 08/14/25 10:23 Oxygen Delivery Method Room Air Weight: 90.718 kg Body Mass Index (BMI) 28.7 Lab / Micro Data Attestation: I reviewed the patient's lab results. Micro: Microbiology 08/07/25 10:47 Wound - Heel, Left Gram Stain - Final 08/07/25 10:47 Wound - Heel, Left Wound Culture - Final Meth. resistant Staph. aureus Corynebacterium striatum 08/07/25 10:47 Wound - Heel, Left Anaerobic Culture - Final No anaerobic bacteria isolated. Physical Exam Narrative Vascular: DP and PT pulses are palpable to left extremity. CFT is brisk. No erythema or drainage appreciated. Skin temperature is warm to warm from proximal ankle to distal digit without focal increase appreciated. Neurological: Light touch is intact. Patient does not respond to painful stimuli. Dermatological: Full-thickness wound to the left heel measuring at 6.2 x 4.0 x 0.3 cm wound base is fibrogranular nature. Positive probe to bone Excisional debridement down to including subcutaneous tissue, fascia and muscle and bone with a number 5 mm dermal curette to the full-thickness wound to the left heel. Predebridement measurement was 6.0 x 3.9 x 0.2 cm. Postdebridement measurement is 6.2 x 4.0 x 0.3 cm. Musculoskeletal: No pain to palpation to full-thickness wound to left lower extremity. No pain with calf compression. Const oriented x3 General Appearance: cooperative Exam Limitations: no limitations HEENT normocephalic Eyes General Eye: normal appearance of both eyes Resp normal respiratory effort Effort and Inspection: able to speak in complete sentences Auscultation: clear to auscultation bilaterally Cardio regular rate and regular rhythm Palpation: normal PMI Rate: regular rate Rhythm: regular rhythm Back/Spine Cervical Spine: cervical ROM normal Thoracic Spine / Upper Back: normal to inspection Lumbar Spine / Lower Back: normal to inspection Pelvis: buttocks abnormal and other soft tissue findings Open wounds bilateral buttocks Extremity normal to inspection General Extremity: normal exam except as noted Skin Skin Narrative: Open wounds on buttocks clean well marcated Wound Narrative: Stage II Neuro oriented x3 Debridement Note Debridement Note Wound Grade/Stage: Stage IV Debridement Free Text: Excisional debridement down to including subcutaneous tissue, fascia and muscle and bone with a number 5 mm dermal curette to the full-thickness wound to the left heel. Predebridement measurement was 6.0 x 3.9 x 0.2 cm. Postdebridement measurement is 6.2 x 4.0 x 0.3 cm. Post-Debridement Measurements and Additional Note: Post-Debridement Measurements/Treatment - Nurse 1 - General Ulcer Assessment Start: 07/29/25 15:35 Freq: Status: Active Protocol: [email or web address].[email or web address] Activity Type Activity Date Activity User E-sign Co-sign Detail Recorded Client Recorded Date Recorded By Document 07/29/25 15:35 OK [id number] 07/29/25 15:42 OK Document 08/07/25 09:56 [id number] 08/07/25 10:03 Document 08/12/25 11:18 TS [id number] 08/12/25 11:37 TS Document 08/14/25 10:23 TS [id number] 08/14/25 10:28 TS 07/29/25 08/07/25 08/12/25 15:35 09:56 11:18 - Today's Visit Information Type of service Follow-up Visit Follow-up Visit Follow-up Visit (Physician/TABLE GAMES MANAGER (Physician/TABLE GAMES MANAGER (Physician/TABLE GAMES MANAGER ) ) ) Arrival Mode Ambulatory, Wheelchair Wheelchair Wheelchair Transfer Assistance None Accompanied by Patient Identification Verified (Name & Yes Yes Yes ) Patient Requires Transmission-Based No Precautions Safety Precautions Fall Prevention Fall Prevention Height and Weight Height 5 ft 10 in Weight 90.718 kg Weight in Pounds 200.0 lbs Weight Measurement Method Stated by Patient Body Mass Index (BMI) 28.7 BMI Classification Overweight Vital Signs Temperature (97.8 F-99.1 F) 98 F 96.6 F L 96.9 F L Temperature Source Temporal Temporal Temporal Pulse Rate (60-100) 96 91 87 Pulse Location Monitor Monitor Monitor Respiratory Rate (12-18) 18 115 H 16 Respiratory rate source Observation Observation Observation Oxygen Delivery Method Room Air Room Air Room Air Blood Pressure (90/60-120/80) 117/63 115/69 114/62 Blood Pressure Mean (mm Hg) 81 84 79 Source Monitor Monitor Monitor Position Sitting Semi-Fowlers Sitting Blood Pressure Location Right Arm Right Arm History Since Last Visit- (Skip if this is Patient's initial visit) Have you changed medications since your No No last visit? Any new allergies or adverse reactions No No Had a fall/change in ADL's that may No No increase risk of falls Signs or symptoms of abuse and/or No No neglect since last visit Have you been in the hospital since your No No last visit? Has dressing in place as prescribed Yes Yes No Has compression in place as prescribed Yes Yes N/A Has offloadiing in place as prescribed Yes Yes N/A Experienced any changes in pain level or Yes No management Left Footwear Regular Shoe Surgical Shoe Surgical Shoe with pressure with pressure relief insole relief insole Right Footwear Regular Shoe Regular Shoe Regular Shoe Pain Scale: 0-10 Numeric Is Patient Pain Free? Yes Yes Yes 08/14/25 10:23 WC - Today's Visit Information Type of service Follow-up Visit (Physician/TABLE GAMES MANAGER ) Arrival Mode Wheelchair Transfer Assistance Accompanied by Patient Identification Verified (Name & Yes ) Patient Requires Transmission-Based No Precautions Safety Precautions Fall Prevention Height and Weight Height Weight Weight in Pounds Weight Measurement Method Body Mass Index (BMI) 28.7 BMI Classification Overweight Vital Signs Temperature (97.8 F-99.1 F) 96.5 F L Temperature Source Oral Pulse Rate (60-100) 96 Pulse Location Monitor Respiratory Rate (12-18) 16 Respiratory rate source Observation Oxygen Delivery Method Room Air Blood Pressure (90/60-120/80) 126/64 H Blood Pressure Mean (mm Hg) 84 Source Monitor Position Sitting Blood Pressure Location Right Arm History Since Last Visit- (Skip if this is Patient's initial visit) Have you changed medications since your Yes last visit? Any new allergies or adverse reactions No Had a fall/change in ADL's that may No increase risk of falls Signs or symptoms of abuse and/or No neglect since last visit Have you been in the hospital since your No last visit? Has dressing in place as prescribed Yes Has compression in place as prescribed Yes Has offloadiing in place as prescribed N/A Experienced any changes in pain level or No management Left Footwear Surgical Shoe with pressure relief insole Right Footwear Regular Shoe Pain Scale: 0-10 Numeric Is Patient Pain Free? Yes WC - Nurse 1 - General Ulcer Measurement Start: 07/29/25 15:35 Freq: Status: Active Protocol: Activity Type Activity Date Activity User E-sign Co-sign Detail Recorded Client Recorded Date Recorded By Document 07/29/25 15:35 MT [id number] 07/29/25 15:42 OK Document 08/07/25 09:56 GM [id number] 08/07/25 10:03 GM Document 08/12/25 11:18 TS [id number] 08/12/25 11:37 TS Document 08/14/25 10:23 TS [id number] 08/14/25 10:28 TS 07/29/25 08/07/25 08/12/25 15:35 09:56 11:18 Wound Center Nurse 1 #2 L Heel -Combined with other wound -Current Size (cm) - Length 6.5 5.0 -Current Size (cm) - Width 3.5 5.5 -Current Size (cm) - Depth 0.2 0.4 -Total Square Cm 22.75 27.50 -Date of Last Picture (Recall this 07/29/25 08/07/25 field) -Photo Taken Yes Yes -Epithelialization None Present -Tunneling No No -Undermining/Tunneling No No -Circular Undermining No No -Exudate Amt Medium Large -Exudate Type Serous Yellow/Green -Wound Margin Thickened & Distinct, Rolled Under Outline Attached -Granulation Amt Medium (34-66%) Medium (34-66%) -Granulation Quality Pale,Ghent Ghent -Slough/Fibrin Yes -Necrosis Amt Medium (34-66%) Medium (34-66%) -Necrotic Tissue Type Adherent Slough Adherent Slough -Structure Exposed -Texture (Andreea-wound Skin Appearance) Assessed, Assessed Induration -Moisture (Andreea-wound Skin Appearance) Assessed, Assessed, Maceration Maceration -Color (Andreea-wound Skin Appearance) Assessed, Assessed Erythema, Mottled,Palor -Temperature (Andreea-wound Skin No Abnormality No Abnormality Appearance) (Pt Warm) (Pt Warm) -Tenderness on Palpation (Andreea-wound No No Skin Appearance) -Ulcer Cleansing Soap and Water Soap and Water -Foul Odor after Cleansing No No -Anesthetic Used 5% Lidocaine 5% Lidocaine Gel Gel #1 Sacral Cluster -Combined with other wound No -Current Size (cm) - Length 2.8 3.7 -Current Size (cm) - Width 1.3 2 -Current Size (cm) - Depth 3.4 2.6 -Total Square Cm 3.64 7.4 -Date of Last Picture (Recall this 07/29/25 08/12/25 field) -Photo Taken Yes Yes -Tunneling No No -Undermining/Tunneling Yes Yes -Undermining/Tunneling Starts (O'clock 12 7 ) -Undermining/Tunneling Ends (O'clock) 4 11 -Maximum Distance (cm) 3.4 3.1 -Circular Undermining No No -Exudate Amt Medium Large -Exudate Type Serosanguineous Yellow/Green -Wound Margin Thickened & Well Defined, Rolled Under Not Attached -Granulation Amt Large (67-100%) Large (67-100%) -Granulation Quality Pale,Ghent Pale -Slough/Fibrin Yes -Necrosis Amt Small (1-33%) Small (1-33%) -Necrotic Tissue Type Adherent Slough Adherent Slough -Structure Exposed None/Limited to Skin Breakdown -Texture (Andreea-wound Skin Appearance) Assessed Assessed -Moisture (Andreea-wound Skin Appearance) Assessed Assessed, Maceration -Color (Andreea-wound Skin Appearance) Assessed Assessed -Temperature (Andreea-wound Skin No Abnormality No Abnormality Appearance) (Pt Warm) (Pt Warm) -Tenderness on Palpation (Andreea-wound No No Skin Appearance) -Ulcer Cleansing Soap and Water Soap and Water -Foul Odor after Cleansing No -Anesthetic Used 5% Lidocaine 5% Lidocaine Gel Gel Lower Limb Edema Present NA Left Ankle (cm) Left Foot (cm) 08/14/25 10:23 Wound Center Nurse 1 #2 L Heel -Combined with other wound No -Current Size (cm) - Length 6.1 -Current Size (cm) - Width 4.3 -Current Size (cm) - Depth -Total Square Cm 26.23 -Date of Last Picture (Recall this 08/14/25 field) -Photo Taken Yes -Epithelialization Medium 34-66% -Tunneling No -Undermining/Tunneling No -Circular Undermining No -Exudate Amt Medium -Exudate Type Sanguineous -Wound Margin -Granulation Amt Medium (34-66%) -Granulation Quality Ghent,Red -Slough/Fibrin Yes -Necrosis Amt Medium (34-66%) -Necrotic Tissue Type Adherent Slough -Structure Exposed None/Limited to Skin Breakdown -Texture (Andreea-wound Skin Appearance) Assessed -Moisture (Andreea-wound Skin Appearance) Assessed, Maceration -Color (Andreea-wound Skin Appearance) Assessed -Temperature (Andreea-wound Skin No Abnormality Appearance) (Pt Warm) -Tenderness on Palpation (Andreea-wound No Skin Appearance) -Ulcer Cleansing Soap and Water -Foul Odor after Cleansing No -Anesthetic Used 5% Lidocaine Gel #1 Sacral Cluster -Combined with other wound -Current Size (cm) - Length -Current Size (cm) - Width -Current Size (cm) - Depth -Total Square Cm -Date of Last Picture (Recall this field) -Photo Taken -Tunneling -Undermining/Tunneling -Undermining/Tunneling Starts (O'clock ) -Undermining/Tunneling Ends (O'clock) -Maximum Distance (cm) -Circular Undermining -Exudate Amt -Exudate Type -Wound Margin -Granulation Amt -Granulation Quality -Slough/Fibrin -Necrosis Amt -Necrotic Tissue Type -Structure Exposed -Texture (Andreea-wound Skin Appearance) -Moisture (Andreea-wound Skin Appearance) -Color (Andreea-wound Skin Appearance) -Temperature (Andreea-wound Skin Appearance) -Tenderness on Palpation (Andreea-wound Skin Appearance) -Ulcer Cleansing -Foul Odor after Cleansing -Anesthetic Used Lower Limb Edema Present Left Ankle (cm) 39 Left Foot (cm) 23.7 WC - Nurse 2 - General Ulcer CM Notes Start: 07/29/25 15:35 Freq: Status: Active Protocol: Activity Type Activity Date Activity User E-sign Co-sign Detail Recorded Client Recorded Date Recorded By Document 07/29/25 16:01 [id number] 07/29/25 16:03 Document 08/07/25 10:46 [id number] 08/07/25 10:53 Document 08/12/25 11:50 [id number] 08/12/25 11:59 Document 08/14/25 10:40 [id number] 08/14/25 10:47 07/29/25 08/07/25 08/12/25 16:01 10:46 11:50 Wound Center Nurse 2 #2 L Heel -Time 16:01 10:50 -Correct Patient Yes Yes -Correct Side, Site, Position Yes Yes -Correct Procedure Yes Yes -Procedure Performed Yes Yes -Type of Procedure Debridement Debridement -Clinical Debridement Muscle / Fascia Muscle / Fascia -Tissue Removed Fascia Muscle -Post Debridement (cm) - Length 6.5 6.0 -Post Debridement (cm) - Width 3.5 4.2 -Post Debridement (cm) - Depth 0.2 0.2 -Total Square (Post) (cm) 22.75 25.20 -Area of Debridement (cm) - Length 6.5 6.0 -Area of Debridement (cm) - Width 3.5 4.2 -Total Square (Area) (cm) 22.75 25.20 -Tunneling No No -Undermining/Tunneling No No -Circular Undermining No No -Wound/Ulcer Outcome Not Healed Not Healed -Ulcer Cleansing Rinsed/ Rinsed/ Irrigated with Irrigated with Saline Saline -Foul Odor after Cleansing No No -Bioengineered Tissue No No -Bleeding Controlled with Pressure Pressure -Treatment Response Procedure Procedure Tolerated Well Tolerated Well -Offloading Yes No -Type of Offloading Surgical Shoe -Debridement - Muscle / Fascia, 1st Yes Yes 20sq cm -Debridement, Muscle/Fascia, ea addt'l 1 1 20sq cm or part thereof -Debridement - Bone, 1st 20sq cm -Debridement, Bone, ea addt'l 20sq cm or part thereof #1 Sacral Cluster -Time 11:51 -Correct Patient Yes Yes -Correct Side, Site, Position No Yes -Correct Procedure No Yes -Procedure Performed No Yes -Type of Procedure Debridement -Clinical Debridement Muscle / Fascia -Tissue Removed Muscle -Post Debridement (cm) - Length 2.5 -Post Debridement (cm) - Width 2.5 -Post Debridement (cm) - Depth 2.0 -Total Square (Post) (cm) 6.25 -Area of Debridement (cm) - Length 2.5 -Area of Debridement (cm) - Width 2.5 -Total Square (Area) (cm) 6.25 -Tunneling No -Undermining/Tunneling No -Circular Undermining No -Wound/Ulcer Outcome Not Healed Not Healed -Ulcer Cleansing Rinsed/ Irrigated with Saline -Foul Odor after Cleansing No -Bioengineered Tissue No -Bleeding Controlled with Pressure,Silver Nitrate ($) -Treatment Response Procedure Tolerated Well -Offloading No -Debridement - Subq, 1st 20sq cm No -Debridement - Muscle / Fascia, 1st Yes 20sq cm Pain Scale: 0-10 Numeric Is Patient Pain Free? Yes Yes Yes 08/14/25 10:40 Wound Center Nurse 2 #2 L Heel -Time 10:40 -Correct Patient Yes -Correct Side, Site, Position Yes -Correct Procedure Yes -Procedure Performed Yes -Type of Procedure Debridement -Clinical Debridement Bone -Tissue Removed Non-viable tissue -Post Debridement (cm) - Length 6.2 -Post Debridement (cm) - Width 4 -Post Debridement (cm) - Depth 0.3 -Total Square (Post) (cm) 24.8 -Area of Debridement (cm) - Length 6.2 -Area of Debridement (cm) - Width 4 -Total Square (Area) (cm) 24.8 -Tunneling No -Undermining/Tunneling No -Circular Undermining No -Wound/Ulcer Outcome Not Healed -Ulcer Cleansing Rinsed/ Irrigated with Saline -Foul Odor after Cleansing No -Bioengineered Tissue No -Bleeding Controlled with Pressure -Treatment Response Procedure Tolerated Well -Offloading Yes -Type of Offloading Surgical Shoe -Debridement - Muscle / Fascia, 1st 20sq cm -Debridement, Muscle/Fascia, ea addt'l 20sq cm or part thereof -Debridement - Bone, 1st 20sq cm Yes -Debridement, Bone, ea addt'l 20sq cm 1 or part thereof #1 Sacral Cluster -Time -Correct Patient -Correct Side, Site, Position -Correct Procedure -Procedure Performed -Type of Procedure -Clinical Debridement -Tissue Removed -Post Debridement (cm) - Length -Post Debridement (cm) - Width -Post Debridement (cm) - Depth -Total Square (Post) (cm) -Area of Debridement (cm) - Length -Area of Debridement (cm) - Width -Total Square (Area) (cm) -Tunneling -Undermining/Tunneling -Circular Undermining -Wound/Ulcer Outcome -Ulcer Cleansing -Foul Odor after Cleansing -Bioengineered Tissue -Bleeding Controlled with -Treatment Response -Offloading -Debridement - Subq, 1st 20sq cm -Debridement - Muscle / Fascia, 1st 20sq cm Pain Scale: 0-10 Numeric Is Patient Pain Free? Yes WC - Nurse 3 - General Ulcer D/C NN Start: 07/29/25 15:35 Freq: Status: Active Protocol: Activity Type Activity Date Activity User E-sign Co-sign Detail Recorded Client Recorded Date Recorded By Document 07/29/25 16:03 [id number] 07/29/25 16:04 Document 08/07/25 11:11 [id number] 08/07/25 11:12 Document 08/12/25 11:59 [id number] 08/12/25 12:00 Document 08/14/25 11:00 [id number] 08/14/25 11:00 07/29/25 08/07/25 08/12/25 16:03 11:11 11:59 Wound Care Center Nurse 3 #2 L Heel -Ulcer Cleansing Rinsed/ Not Cleansed Irrigated with Saline -Foul Odor after Cleansing No No -Primary Dressing Applied Promogran Hysept Deirdre Matter -Other Dressing -Primary Dressing Covered/Secured with Dry Gauze & Dry Gauze & Roll Gauze, Roll Gauze, Secured with Secured with Tape Tape -Hysept 1 -Promogran Deirdre Matter 1 #1 Sacral Cluster -Ulcer Cleansing Soap and Water Soap and Water -Foul Odor after Cleansing No -NPWT Application Charge NPWT </= 50 sq NPWT & cm ($) Debridement (nc ) -Foam Supply Charges Black Foam Patient Medium,Patient Supplied Supplied Dressing Dressing -Black Foam, Medium 0 LLE -Lotion applied to leg before No compression wrap -Tubular Bandage Single Layer -Size of Tubigrip Used Size E -Size E ($) 1 Pain Scale: 0-10 Numeric Is Patient Pain Free? Yes Yes Yes WC - Visit Discharge Discharge Condition Stable Stable Stable Ambulatory Status Wheelchair Wheelchair Wheelchair Transportation Private Auto Private Auto Private Auto Accompanied by Medication Reconcilliation completed & Yes Yes provided to patient/care provider Clinical Summary of Care Provided Yes Yes 08/14/25 11:00 Wound Care Center Nurse 3 #2 L Heel -Ulcer Cleansing Not Cleansed -Foul Odor after Cleansing No -Primary Dressing Applied -Other Dressing dakins wet to dry -Primary Dressing Covered/Secured with Dry Gauze & Roll Gauze, Secured with Tape -Hysept -Promogran Deirdre Matter #1 Sacral Cluster -Ulcer Cleansing -Foul Odor after Cleansing -NPWT Application Charge -Foam Supply Charges -Black Foam, Medium LLE -Lotion applied to leg before No compression wrap -Tubular Bandage Single Layer -Size of Tubigrip Used Size E -Size E ($) 2 Pain Scale: 0-10 Numeric Is Patient Pain Free? Yes WC - Visit Discharge Discharge Condition Stable Ambulatory Status Wheelchair Transportation Private Auto Accompanied by Medication Reconcilliation completed & provided to patient/care provider Clinical Summary of Care Provided Additional Wound Wound Grade/Stage: Stage II Tissue Removed: Macerated tissue and fibrin Assessment/Plan Assessment/Plan (1) Non-pressure chronic ulcer of other part of left foot with necrosis of bone: CODE(S): L97.524 - Non-pressure chronic ulcer of other part of left foot with necrosis of bone PLAN: Patient was examined and evaluated. All findings were discussed with the patient. All questions were answered to the patient's satisfaction. Excisional debridement down to including subcutaneous tissue, fascia and muscle and bone with a number 5 mm dermal curette to the full-thickness wound to the left heel. Predebridement measurement was 6.0 x 3.9 x 0.2 cm. Postdebridement measurement is 6.2 x 4.0 x 0.3 cm. The left foot was cleaned and patted dry. Dakin soaked gauze followed by dry sterile dressing light compression wrap was donned to left lower extremity. The patient's will change to the left heel wound daily. Patient will continue the antibiotics doxycycline 100 mg twice daily until gone. Encouraged the patient to continue strict blood sugar control. Patient will continue to work on lowering his hemoglobin A1c since it was elevated. At this time we will continue conservative treatment in the wound care center but may need to move forward with surgical cleanup of the full-thickness wound with Integra bilayer application if needed. All risk and benefits of the surgery were discussed patient great detail. Follow-up at the wound care center with Dr. Casas in 1 week. (2) Chronic painful diabetic polyneuropathy: CODE(S): E11.42 - Type 2 diabetes mellitus with diabetic polyneuropathy
--- NOTE | 2025-08-15 11:28 | WC ---
PHOTO-LEFT HEEL 08/14/25
== END 2025-08-16 23:59 | disposition home or self-care (01) ==
LOC: WC 10:15
PROVIDERS: PCP Family Medicine; Referring Provider Family Medicine; Visit Provider Surgery Plastic and Reconstructive Surgery
DX: E11.621 Type 2 diabetes mellitus with foot ulcer (principal); L97.524 Non-pressure chronic ulcer of other part of left foot with necrosis of bone; L89.153 Pressure ulcer of sacral region, stage 3; C91.11 Chronic lymphocytic leukemia of B-cell type in remission; E11.42 Type 2 diabetes mellitus with diabetic polyneuropathy; E78.5 Hyperlipidemia, unspecified; Z82.49 Family history of ischemic heart disease and other diseases of the circulatory system; D72.829 Elevated white blood cell count, unspecified; Z79.84 Long term (current) use of oral hypoglycemic drugs; Z79.891 Long term (current) use of opiate analgesic; K21.9 Gastro-esophageal reflux disease without esophagitis; I25.10 Atherosclerotic heart disease of native coronary artery without angina pectoris; Z86.718 Personal history of other venous thrombosis and embolism; I10 Essential (primary) hypertension; I25.2 Old myocardial infarction; Z95.5 Presence of coronary angioplasty implant and graft
CPT/HCPCS: 11043; 11044; 11046; 11047; 87070; 87075; 87077; 87186; 87205; 97605

== ENCOUNTER 2025-09-09 10:00 | Outpatient (RCR) | payer MEDICARE, SELFPAY ==
[2025-08-21 11:31] VITALS: BP 107/67; PULSE 72; RESP 18; TEMP 35.6
--- NOTE | 2025-08-21 15:03 | PCM.WC.PN ---
History of Present Illness Date of Service: 08/21/25 Chief Complaint: Follow-up on buttocks right and left heel wounds that have been going on for months. History of Wound: Chief Complaint: Follow-up on buttocks right and left heel wounds that have been going on for months. 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 He has not walked in several years. He is able to stand up to perform transfers, but does not move his ankle joints. He lays on his chair most of the day. And has developed a sacral wound that he has been following at the wound care center for as well as a left calcaneal wound in the setting of a recent hospitalization this past year, both of which he has been following here at the wound center with various advanced practice providers. Wound culture of left heel ulcer from 08/08/24 positive for MDRO Pseudomonas aeruginosa. Referral to infectious disease for treatment s/p antibiotic regimen. MRI of Pelvis 08/16/24 - Sacral decubitus ulcer with sacrococcygeal osteomyelitis. Treated by infectious disease with long-term course of IV antibiotics. Progress of Wound: The sacral ulcer with bone palpable but covered with granulation tissue and is beefy pink. There is undermining present, which is stable. The perineal ulcer (skin tear proximal to sacral ulcer) remains healed. Left medial heel appears improved with pink ulcer bed and much less non viable tissue present. He is sleeping on the low air loss mattress. 10 December 2024: Patient reports that he has not had any vascular workup for the lower extremity. He has a history of a DVT in the left lower extremity in the remote history and remains on Eliquis for anticoagulation. He reports episodic swelling in the left lower extremity that appears to be worsening the condition of the wound. He is not having any shortness of breath. He is not having any systemic signs or symptoms of infection. 17 December 2024: Doing well with wound care (VAC dressings) which started this past Tuesday. They have an appointment for ABIs and US for evaluation of the lower extremity. He has not gotten his xray of the foot yet, but is planning to get that soon (discussed). Labs obtained 14 Dec 2024 A1C 6.7 Prealb 27 Alb 3.4 Progress of Wound: Stable full-thickness wound left heel Subjective Subjective Patient is 85-year-old diabetic male presenting to the wound care center today follow-up evaluation of full-thickness wound to left heel. He has been compliant with dressing changes from his . He is taking the antibiotic as prescribed. Patient's admits improvement to the wound. He denies any pain or trauma. Denies constitutional symptoms. Other pedal complaints at this time. Objective Data Objective Data Both wounds look better but the heel looks macerated. Scheduling him for an MRI and we will go from there. We will continue the wound VAC at 150 mL of meters mercury he is tolerating it well the wound VAC had to be removed last night because it lost its suction. Vital Signs: Vital Signs Temp Pulse Resp BP O2 Del Method 96.1 F L 72 18 107/67 Room Air 08/21/25 11:31 08/21/25 11:31 08/21/25 11:31 08/21/25 11:31 08/21/25 11:31 Oxygen Delivery Method Room Air Lab / Micro Data Attestation: I reviewed the patient's lab results. Micro: Microbiology 08/07/25 10:47 Wound - Heel, Left Gram Stain - Final 08/07/25 10:47 Wound - Heel, Left Wound Culture - Final Meth. resistant Staph. aureus Corynebacterium striatum 08/07/25 10:47 Wound - Heel, Left Anaerobic Culture - Final No anaerobic bacteria isolated. Physical Exam Narrative Vascular: DP and PT pulses are palpable to left extremity. CFT is brisk. No erythema or drainage appreciated. Skin temperature is warm to warm from proximal ankle to distal digit without focal increase appreciated. Neurological: Light touch is intact. Patient does not respond to painful stimuli. Dermatological: Full-thickness wound to the left heel measuring at 4.6 x 5.5 x 0.3 cm. Wound base is fibrogranular nature. Positive probe to bone Excisional debridement down to including subcutaneous tissue, fascia and muscle with a number 5 mm dermal curette to the full-thickness wound to the left heel. Predebridement measurement was 4.4 x 5.3 x 0.2 cm. Postdebridement measurement is 4.6 x 5.5 x 0.3 cm. Musculoskeletal: No pain to palpation to full-thickness wound to left lower extremity. No pain with calf compression. Skin Skin Narrative: Open wounds on buttocks clean well marcated Wound Narrative: Stage II Debridement Note Debridement Note Wound Grade/Stage: Stage IV Debridement Free Text: Excisional debridement down to including subcutaneous tissue, fascia and muscle with a number 5 mm dermal curette to the full-thickness wound to the left heel. Predebridement measurement was 4.4 x 5.3 x 0.2 cm. Postdebridement measurement is 4.6 x 5.5 x 0.3 cm. Post-Debridement Measurements and Additional Note: Post-Debridement Measurements/Treatment WC - Nurse 1 - General Ulcer Assessment Start: 08/21/25 11:31 Freq: Status: Active Protocol: CHEL Activity Type Activity Date Activity User E-sign Co-sign Detail Recorded Client Recorded Date Recorded By Document 08/21/25 11:31 PONCHO [id number] 08/21/25 11:40 RB 08/21/25 11:31 SHAYLA - Today's Visit Information Type of service Follow-up Visit (Physician/PROCESSING [employer]PER[employer]OR ) Arrival Mode Wheelchair Transfer Assistance Manual Accompanied by Patient Identification Verified (Name & Yes ) Patient Requires Transmission-Based No Precautions Vital Signs Temperature (97.8 F-99.1 F) 96.1 F L Temperature Source Temporal Pulse Rate (60-100) 72 Pulse Location Monitor Respiratory Rate (12-18) 18 Respiratory rate source Observation Oxygen Delivery Method Room Air Blood Pressure (90/60-120/80) 107/67 Blood Pressure Mean (mm Hg) 80 Source Monitor Position Sitting Blood Pressure Location Left Arm History Since Last Visit- (Skip if this is Patient's initial visit) Have you changed medications since your No last visit? Any new allergies or adverse reactions No Had a fall/change in ADL's that may No increase risk of falls Signs or symptoms of abuse and/or No neglect since last visit Have you been in the hospital since your No last visit? Has dressing in place as prescribed Yes Has compression in place as prescribed Yes Has offloadiing in place as prescribed N/A Experienced any changes in pain level or No management Pain Scale: 0-10 Numeric Is Patient Pain Free? Yes - Nurse 1 - General Ulcer Measurement Start: 08/21/25 11:31 Freq: Status: Active Protocol: Activity Type Activity Date Activity User E-sign Co-sign Detail Recorded Client Recorded Date Recorded By Document 08/21/25 11:31 RB [id number] 08/21/25 11:40 RB 08/21/25 11:31 Wound Center Nurse 1 #2 L Heel -Combined with other wound No -Current Size (cm) - Length 4.5 -Current Size (cm) - Width 4 -Current Size (cm) - Depth 0.3 -Total Square Cm 18.0 -Date of Last Picture (Recall this 08/21/25 field) -Photo Taken Yes -Tunneling No -Undermining/Tunneling No -Circular Undermining No -Exudate Amt Large -Exudate Type Serosanguineous -Wound Margin Distinct, Outline Attached -Granulation Amt Large (67-100%) -Granulation Quality [place],Red -Slough/Fibrin Yes -Necrosis Amt Medium (34-66%) -Necrotic Tissue Type Adherent Slough -Structure Exposed N/A -Texture (Andreea-wound Skin Appearance) Assessed -Moisture (Andreea-wound Skin Appearance) Assessed, Maceration -Color (Andreea-wound Skin Appearance) Assessed -Temperature (Andreea-wound Skin No Abnormality Appearance) (Pt Warm) -Tenderness on Palpation (Andreea-wound No Skin Appearance) -Ulcer Cleansing Wound Cleanser -Foul Odor after Cleansing No -Anesthetic Used 5% Lidocaine Gel Lower Limb Edema Present Yes Left Calf (cm) 37.5 Left Ankle (cm) 24 WC - Nurse 2 - General Ulcer CM Notes Start: 08/21/25 11:31 Freq: Status: Active Protocol: Activity Type Activity Date Activity User E-sign Co-sign Detail Recorded Client Recorded Date Recorded By Document 08/21/25 11:44 MARK ANTHONY [id number] 08/21/25 11:46 MARK ANTHONY 08/21/25 11:44 Wound Center Nurse 2 #2 L Heel -Time 11:44 -Correct Patient Yes -Correct Side, Site, Position Yes -Correct Procedure Yes -Procedure Performed Yes -Type of Procedure Debridement -Clinical Debridement Muscle / Fascia -Tissue Removed Muscle -Post Debridement (cm) - Length 4.6 -Post Debridement (cm) - Width 5.5 -Post Debridement (cm) - Depth 0.3 -Total Square (Post) (cm) 25.30 -Area of Debridement (cm) - Length 4.6 -Area of Debridement (cm) - Width 5.5 -Total Square (Area) (cm) 25.30 -Tunneling No -Undermining/Tunneling No -Circular Undermining No -Wound/Ulcer Outcome Not Healed -Ulcer Cleansing Rinsed/ Irrigated with Saline -Foul Odor after Cleansing No -Bioengineered Tissue No -Bleeding Controlled with Pressure -Treatment Response Procedure Tolerated Well -Offloading Yes -Type of Offloading Surgical Shoe -Debridement - Muscle / Fascia, 1st Yes 20sq cm -Debridement, Muscle/Fascia, ea addt'l 1 20sq cm or part thereof Pain Scale: 0-10 Numeric Is Patient Pain Free? Yes - Nurse 3 - General Ulcer D/C NN Start: 08/21/25 11:31 Freq: Status: Active Protocol: Activity Type Activity Date Activity User E-sign Co-sign Detail Recorded Client Recorded Date Recorded By Document 08/21/25 12:05 CP [id number] 08/21/25 12:06 CP 08/21/25 12:05 Wound Care Center Nurse 3 #2 L Heel -Ulcer Cleansing Rinsed/ Irrigated with Saline -Other Dressing dakins moist gauze -Primary Dressing Covered/Secured with Dry Gauze & Roll Gauze, Secured with Tape LLE -Tubular Bandage Single Layer -Size of Tubigrip Used Size E -Size E ($) 1 Pain Scale: 0-10 Numeric Is Patient Pain Free? Yes WC - Visit Discharge Discharge Condition Stable Ambulatory Status Wheelchair Transportation Private Auto Clinical Summary of Care Provided Yes Facility Type Home Health Orders Sent Yes Additional Wound Wound Grade/Stage: Stage II Tissue Removed: Macerated tissue and fibrin Assessment/Plan Assessment/Plan (1) Non-pressure chronic ulcer of other part of left foot with necrosis of muscle: CODE(S): L97.523 - Non-pressure chronic ulcer of other part of left foot with necrosis of muscle PLAN: Patient was examined and evaluated. All findings were discussed with the patient. All questions were answered to the patient's satisfaction. Excisional debridement down to including subcutaneous tissue, fascia and muscle with a number 5 mm dermal curette to the full-thickness wound to the left heel. Predebridement measurement was 4.4 x 5.3 x 0.2 cm. Postdebridement measurement is 4.6 x 5.5 x 0.3 cm. The left heel was wiped clean and patted dry. Dakin soaked gauze from a dry sterile dressing light compression wrap was donned to the left lower extremity. Patient will change the dressing daily. Patient will continue the doxycycline as prescribed. I educated the patient that is important that he checks his blood sugar at least once a week. Patient stated that he has trouble getting blood out of his fingers but will make the attempt. Follow-up at the wound care center with Dr. Casas in 1 week. (2) Chronic painful diabetic polyneuropathy: CODE(S): E11.42 - Type 2 diabetes mellitus with diabetic polyneuropathy
--- NOTE | 2025-08-22 12:17 | WC ---
PHOTO-LEFT HEEL 08/21/25
[2025-08-28 11:04] VITALS: BP 118/67; PULSE 86; RESP 17; TEMP 35.8
--- NOTE | 2025-08-28 11:52 | PN.PCM_ITS ---
History of Present Illness Date of Service: 08/28/25 Chief Complaint: Follow-up on buttocks right and left heel wounds that have been going on for months. History of Wound: Chief Complaint: Follow-up on buttocks right and left heel wounds that have been going on for months. 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 He has not walked in several years. He is able to stand up to perform transfers, but does not move his ankle joints. He lays on his chair most of the day. And has developed a sacral wound that he has been following at the wound care center for as well as a left calcaneal wound in the setting of a recent hospitalization this past year, both of which he has been following here at the wound center with various advanced practice providers. Wound culture of left heel ulcer from 08/08/24 positive for MDRO Pseudomonas aeruginosa. Referral to infectious disease for treatment s/p antibiotic regimen. MRI of Pelvis 08/16/24 - Sacral decubitus ulcer with sacrococcygeal osteomyelitis. Treated by infectious disease with long-term course of IV antibiotics. Progress of Wound: The sacral ulcer with bone palpable but covered with granulation tissue and is beefy pink. There is undermining present, which is stable. The perineal ulcer (skin tear proximal to sacral ulcer) remains healed. Left medial heel appears improved with pink ulcer bed and much less non viable tissue present. He is sleeping on the low air loss mattress. 10 December 2024: Patient reports that he has not had any vascular workup for the lower extremity. He has a history of a DVT in the left lower extremity in the remote history and remains on Eliquis for anticoagulation. He reports episodic swelling in the left lower extremity that appears to be worsening the condition of the wound. He is not having any shortness of breath. He is not having any systemic signs or symptoms of infection. 17 December 2024: Doing well with wound care (VAC dressings) which started this past Tuesday. They have an appointment for ABIs and US for evaluation of the lower extremity. He has not gotten his xray of the foot yet, but is planning to get that soon (discussed). Labs obtained 14 Dec 2024 A1C 6.7 Prealb 27 Alb 3.4 Progress of Wound: Stable full-thickness wound left heel Subjective Subjective Patient is a 85-year-old diabetic male presenting to the wound care center today follow-up evaluation of full-thickness wound to left heel. Patient has been compliant with daily dressing changes. His blood sugars well-controlled. He admitts to some drainage but overall is improving. He has taken his last antibiotic today and understands that he will be placed on additional 2 weeks of doxycycline. He denies trauma. Denies constitutional symptoms. No other pedal complaints at this time. Objective Data Objective Data Both wounds look better but the heel looks macerated. Scheduling him for an MRI and we will go from there. We will continue the wound VAC at 150 mL of meters mercury he is tolerating it well the wound VAC had to be removed last night because it lost its suction. Vital Signs: Vital Signs Temp Pulse Resp BP O2 Del Method 96.5 F L 86 17 118/67 Room Air 08/28/25 11:04 08/28/25 11:04 08/28/25 11:04 08/28/25 11:04 08/28/25 11:04 Oxygen Delivery Method Room Air Lab / Micro Data Attestation: I reviewed the patient's lab results. Micro: Microbiology 08/07/25 10:47 Wound - Heel, Left Gram Stain - Final 08/07/25 10:47 Wound - Heel, Left Wound Culture - Final Meth. resistant Staph. aureus Corynebacterium striatum 08/07/25 10:47 Wound - Heel, Left Anaerobic Culture - Final No anaerobic bacteria isolated. Physical Exam Narrative Vascular: DP and PT pulses are palpable to left extremity. CFT is brisk. No erythema or drainage appreciated. Skin temperature is warm to warm from prox imal ankle to distal digit without focal increase appreciated. Neurological: Light touch is intact. Patient does not respond to painful stimuli. Dermatological: Full-thickness wound to the left heel measuring at 5.0 x 4.1 x 0.2 cm. Wound base is fibrogranular nature. Negative probe to bone Excisional debridement down to including subcutaneous tissue, fascia and muscle with a number 5 mm dermal curette to the full-thickness wound to the left heel. Predebridement measurement was 4.8 x 4.0 x 0.2 cm. Postdebridement measurement is 5.0 x 4.1 x 0.2 cm Musculoskeletal: No pain to palpation to full-thickness wound to left lower extremity. No pain with calf compression. Skin Skin Narrative: Open wounds on buttocks clean well marcated Wound Narrative: Stage II Debridement Note Debridement Note Wound Grade/Stage: Stage IV Debridement Free Text: Excisional debridement down to including subcutaneous tissue, fascia and muscle with a number 5 mm dermal curette to the full- thickness wound to the left heel. Predebridement measurement was 4.8 x 4.0 x 0.2 cm. Postdebridement measurement is 5.0 x 4.1 x 0.2 cm Post-Debridement Measurements and Additional Note: Post-Debridement Measurements/Treatment - Nurse 1 - General Ulcer Assessment Start: 08/21/25 11:31 Freq: Status: Active Protocol: CHEL Activity Type Activity Date Activity User E-sign Co-sign Detail Recorded Client Recorded Date Recorded By Document 08/21/25 11:31 RB [id number] 08/21/25 11:40 RB Document 08/28/25 11:04 TS [id number] 08/28/25 11:16 TS 08/21/25 08/28/25 11:31 11:04 - Today's Visit Information Type of service Follow-up Visit Follow-up Visit (Physician/ROLL OFF DRIVER (Physician/ROLL OFF DRIVER ) ) Arrival Mode Wheelchair Wheelchair Transfer Assistance Manual Accompanied by Patient Identification Verified (Name & Yes Yes ) Patient Requires Transmission-Based No No Precautions Safety Precautions Fall Prevention Vital Signs Temperature (97.8 F-99.1 F) 96.1 F L 96.5 F L Temperature Source Temporal Temporal Pulse Rate (60-100) 72 86 Pulse Location Monitor Monitor Respiratory Rate (12-18) 18 17 Respiratory rate source Observation Observation Oxygen Delivery Method Room Air Room Air Blood Pressure (90/60-120/80) 107/67 118/67 Blood Pressure Mean (mm Hg) 80 84 Source Monitor Manual Position Sitting Blood Pressure Location Left Arm Right Arm History Since Last Visit- (Skip if this is Patient's initial visit) Have you changed medications since your No No last visit? Any new allergies or adverse reactions No No Had a fall/change in ADL's that may No No increase risk of falls Signs or symptoms of abuse and/or No No neglect since last visit Have you been in the hospital since your No No last visit? Has dressing in place as prescribed Yes Yes Has compression in place as prescribed Yes N/A Has offloadiing in place as prescribed N/A N/A Experienced any changes in pain level or No management Left Footwear Surgical Shoe with pressure relief insole Right Footwear Regular Shoe Pain Scale: 0-10 Numeric Is Patient Pain Free? Yes Yes WC - Nurse 1 - General Ulcer Measurement Start: 08/21/25 11:31 Freq: Status: Active Protocol: Activity Type Activity Date Activity User E-sign Co-sign Detail Recorded Client Recorded Date Recorded By Document 08/21/25 11:31 RB [id number] 08/21/25 11:40 RB Document 08/28/25 11:04 TS [id number] 08/28/25 11:16 TS 08/21/25 08/28/25 11:31 11:04 Wound Center Nurse 1 #2 L Heel -Combined with other wound No No -Current Size (cm) - Length 4.5 4.5 -Current Size (cm) - Width 4 5 -Current Size (cm) - Depth 0.3 0.3 -Total Square Cm 18.0 22.5 -Date of Last Picture (Recall this 08/21/25 08/28/25 field) -Photo Taken Yes Yes -Tunneling No No -Undermining/Tunneling No No -Circular Undermining No No -Exudate Amt Large Large -Exudate Type Serosanguineous Serosanguineous -Wound Margin Distinct, Distinct, Outline Outline Attached Attached -Granulation Amt Large (67-100%) Medium (34-66%) -Granulation Quality [place],Red [place],Red -Slough/Fibrin Yes Yes -Necrosis Amt Medium (34-66%) Medium (34-66%) -Necrotic Tissue Type Adherent Slough Eschar -Structure Exposed N/A None/Limited to Skin Breakdown -Texture (Andreea-wound Skin Appearance) Assessed Assessed -Moisture (Andreea-wound Skin Appearance) Assessed, Assessed Maceration -Color (Andreea-wound Skin Appearance) Assessed Assessed -Temperature (Andreea-wound Skin No Abnormality No Abnormality Appearance) (Pt Warm) (Pt Warm) -Tenderness on Palpation (Andreea-wound No Skin Appearance) -Ulcer Cleansing Wound Cleanser Soap and Water -Foul Odor after Cleansing No No -Anesthetic Used 5% Lidocaine 5% Lidocaine Gel Gel Lower Limb Edema Present Yes Left Calf (cm) 37.5 Point of measurement (cm from the medial 32.5 instep) Left Ankle (cm) 24 Point of Measurement (cm from the medial 25 instep) WC - Nurse 2 - General Ulcer CM Notes Start: 08/21/25 11:31 Freq: Status: Active Protocol: Activity Type Activity Date Activity User E-sign Co-sign Detail Recorded Client Recorded Date Recorded By Document 08/21/25 11:44 [id number] 08/21/25 11:46 JF Document 08/28/25 11:23 [id number] 08/28/25 11:24 JF 08/21/25 08/28/25 11:44 11:23 Wound Center Nurse 2 #2 L Heel -Time 11:44 11:24 -Correct Patient Yes Yes -Correct Side, Site, Position Yes Yes -Correct Procedure Yes Yes -Procedure Performed Yes Yes -Type of Procedure Debridement Debridement -Clinical Debridement Muscle / Fascia Muscle / Fascia -Tissue Removed Muscle Muscle -Post Debridement (cm) - Length 4.6 5 -Post Debridement (cm) - Width 5.5 4.1 -Post Debridement (cm) - Depth 0.3 0.2 -Total Square (Post) (cm) 25.30 20.5 -Area of Debridement (cm) - Length 4.6 5 -Area of Debridement (cm) - Width 5.5 4.1 -Total Square (Area) (cm) 25.30 20.5 -Tunneling No No -Undermining/Tunneling No No -Circular Undermining No No -Wound/Ulcer Outcome Not Healed Not Healed -Ulcer Cleansing Rinsed/ Rinsed/ Irrigated with Irrigated with Saline Saline -Foul Odor after Cleansing No No -Bioengineered Tissue No No -Bleeding Controlled with Pressure Pressure -Treatment Response Procedure Procedure Tolerated Well Tolerated Well -Offloading Yes Yes -Type of Offloading Surgical Shoe Surgical Shoe -Debridement - Muscle / Fascia, 1st Yes Yes 20sq cm -Debridement, Muscle/Fascia, ea addt'l 1 1 20sq cm or part thereof Pain Scale: 0-10 Numeric Is Patient Pain Free? Yes Yes SHAYLA - Nurse 3 - General Ulcer D/C NN Start: 08/21/25 11:31 Freq: Status: Active Protocol: Activity Type Activity Date Activity User E-sign Co-sign Detail Recorded Client Recorded Date Recorded By Document 08/21/25 12:05 CP [id number] 08/21/25 12:06 CP Document 11/12/25 11:30 TS [id number] 08/28/25 11:40 TS 08/21/25 08/28/25 12:05 11:30 Wound Care Center Nurse 3 #2 L Heel -Ulcer Cleansing Rinsed/ Rinsed/ Irrigated with Irrigated with Saline Saline -Primary Dressing Applied AMD Dressing 4x4 -Other Dressing dakins moist abd and kerlix gauze -Primary Dressing Covered/Secured with Dry Gauze & Secured with Roll Gauze, Tape Secured with Tape -AMD Dressing 4x4 2 LLE -Lotion applied to leg before No compression wrap -Tubular Bandage Single Layer Single Layer -Size of Tubigrip Used Size E Size E -Size E ($) 1 1 Pain Scale: 0-10 Numeric Is Patient Pain Free? Yes Yes WC - Visit Discharge Discharge Condition Stable Stable Ambulatory Status Wheelchair Wheelchair Transportation Private Auto Private Auto Medication Reconcilliation completed & No provided to patient/care provider Clinical Summary of Care Provided Yes Yes Facility Type Home Health Orders Sent Yes Additional Wound Wound Grade/Stage: Stage II Tissue Removed: Macerated tissue and fibrin Assessment/Plan Assessment/Plan (1) Non-pressure chronic ulcer of other part of left foot with fat layer exposed: CODE(S): L97.522 - Non-pressure chronic ulcer of other part of left foot with fat layer exposed PLAN: Patient was examined and evaluated. All findings were discussed with the patient. All questions were answered to the patient's satisfaction. Excisional debridement down to including subcutaneous tissue, fascia and muscle with a number 5 mm dermal curette to the full-thickness wound to the left heel. Predebridement measurement was 4.8 x 4.0 x 0.2 cm. Postdebridement measurement is 5.0 x 4.1 x 0.2 cm. The left heel was wiped clean and patted dry. AMD pad was applied to the full-thickness wound followed by dry sterile dressing and light compression wrap to left lower extremity. Patient will change the dressing daily. Will continue the patient on additional 2 weeks of doxycycline. Additional culture was taken to rule out any additional microbial growth that was not covered under the previous dose of oral doxycycline. I educated the patient that is important that he checks his blood sugar at least once a week. Patient stated that he has trouble getting blood out of his fingers but will make the attempt. Follow-up at the wound care center with Dr. Casas in 1 week. (2) Chronic painful diabetic polyneuropathy: CODE(S): E11.42 - Type 2 diabetes mellitus with diabetic polyneuropathy
[2025-09-02 10:21] VITALS: BP 134/76; PULSE 82; RESP 16; TEMP 35.7
--- NOTE | 2025-09-02 10:50 | BONBX_PTH ---
PATIENT: BRANDY LOMELI LOC: U#:[id number] AGE/SX: 85/M ROOM: RE09/09/[address]: Dr. Jeevan Sewell MD : 1940 BED: DIS: 09/15/2025 SPEC #: [id number] RECD: 09/02/25 11:28 STATUS: SHAE LILIA #: [id number] DAMIAN: 09/02/25 10:[address]: Jeevan Sewell DEPT: SURGICAL PATHOLOGY RECD BY: Vimal Mccain ENTERED: 09/02/25 12:14 SP TYPE: Bone OTHR DR: Dr. Matt Flores DO Tissues: Sacrum, NOS Procedures: Decalcification bone/plaque Surgery Specimen Level IV HEADER OPERATION: Bone excision from sacral ulcer PRE-OP DIAGNOSIS: Sacral ulcer with exposed bone, non-healing TISSUE SUBMITTED: A- Bone biopsy of sacral ulcer MICROSCOPIC DIAGNOSIS A. Bone, sacrum, biopsy: * Bone with marrow fibrosis, negative for inflammation MICROSCOPIC DESCRIPTION Slides are reviewed. GROSS DESCRIPTION A. Received in formalin labeled with the patient's name and date of . Designated as sacral bone is a 0.4 x 0.3 x 0.2 cm portion of pink-hollins red bone. Entirely submitted in 1 cassette, following decalcification. [place] 09/02/2025 CPT:98179,17213
--- NOTE | 2025-09-02 10:59 | PN.PCM_ITS ---
History of Present Illness Date of Service: 09/02/25 Chief Complaint: Follow-up on buttocks right and left heel wounds that have been going on for months. History of Wound: Chief Complaint: Follow-up on buttocks right and left heel wounds that have been going on for months. 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 He has not walked in several years. He is able to stand up to perform transfers, but does not move his ankle joints. He lays on his chair most of the day. And has developed a sacral wound that he has been following at the wound care center for as well as a left calcaneal wound in the setting of a recent hospitalization this past year, both of which he has been following here at the wound center with various advanced practice providers. Wound culture of left heel ulcer from 08/08/24 positive for MDRO Pseudomonas aeruginosa. Referral to infectious disease for treatment s/p antibiotic regimen. MRI of Pelvis 08/16/24 - Sacral decubitus ulcer with sacrococcygeal osteomyelitis. Treated by infectious disease with long-term course of IV antibiotics. Progress of Wound: The sacral ulcer with bone palpable but covered with granulation tissue and is beefy pink. There is undermining present, which is stable. The perineal ulcer (skin tear proximal to sacral ulcer) remains healed. Left medial heel appears improved with pink ulcer bed and much less non viable tissue present. He is sleeping on the low air loss mattress. 10 December 2024: Patient reports that he has not had any vascular workup for the lower extremity. He has a history of a DVT in the left lower extremity in the remote history and remains on Eliquis for anticoagulation. He reports episodic swelling in the left lower extremity that appears to be worsening the condition of the wound. He is not having any shortness of breath. He is not having any systemic signs or symptoms of infection. 17 December 2024: Doing well with wound care (VAC dressings) which started this past Tuesday. They have an appointment for ABIs and US for evaluation of the lower extremity. He has not gotten his xray of the foot yet, but is planning to get that soon (discussed). Labs obtained 14 Dec 2024 A1C 6.7 Prealb 27 Alb 3.4 Progress of Wound: 07 January 2025: Imaging reviewed. No osteomyelitis on the xray of the foot. There were no DVT on venous study. Arterial study demonstrated noncompressible vessels 2/2 to significant calcifications of the vasculature Patient has been doing well overall, however. Tolerating dressing changes. 21 January 2025: Doing well overall with dressing changes except there is been an odor coming from the sacral wound after the VAC changes, his would like us to look today. Patient has seen Dr. Farooq (heart doctor) this past week on 19 January 2025 and he discontinued his amiodarone and his blood thinner (patient has been regular with rate and rhythm). He has been off the blood thinner for greater than 48 hours now. Patient also has a follow-up of his ABIs with vascular surgery on 23 January 2025 (2 days from now) To assess need for intervention for increased blood flow to the foot wound. There is another area of concern in the left forearm today that the patient and his would like me to biopsy. It has been there for several months and growing. It is a scaly/scabby lesion on the left proximal dorsal forearm. Biopsy results (from biopsy on 07 January 2025) of the heel wound did not demonstrate any signs of malignancy. 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 This was discussed with the patient and his . Patient doing well overall and is tolerating the TheraSkin applications to the heel. Wound VAC dressing changes are going well as well 18 Feb 2025: Doing well overall. Tolerating theraskin. On the scheduled for excision of the SSC of the left forearm next week. 27 Feb 2025: Tolerating TheraSkin. No fevers chills. All questions answered about once his excision procedure for left forearm squamous cell carcinoma. Patient has been seeing his oncologist and has been getting infusions to increase his white blood cell counts and promote healing. 04 Mar 2025: Reviewed pathology with the patient and his at today's visit from the left forearm squamous cell carcinoma excision. It was negative for malignancy, margins were free from carcinoma. Patient tolerated the procedure well and is feeling well. No pain. No numbness in the forearm. No drainage or fevers chills. Patient here for the foot wound and the sacral wound is well. Reports excellent VAC changes and tolerance of the TheraSkin. 14 Mar 2025: Doing well overall. No appointment this past Tuesday secondary to and TheraSkin fell off from the heal on its own yesterday. There is notes there is scan ordered for today and it will be replaced on this coming Tuesday. 18 March 2025: Doing well overall. No significant change since last appoint. Endorses good dressing changes 25 March 2025: Doing well overall. No big changes. Tolerating TheraSkin treatments and VAC changes. 22 March 2025: Doing well overall. Tolerating TheraSkin 08 April 2025: Tolerating TheraSkin. No fevers chills or drainage. Reports improvement in the size of the sacral wound and persistent heel wound 22 April 2025: The patient is an 84-year-old male presenting with wound and osteomyelitis of the left heal and associated need for wound care. The osteomyelitis was identified through a culture that grew bacteria, indicating an infection in the bone. The patient has been on antibiotics for infection management, with four days remaining in the current course. Patient has been on amoxicillin and linezolid per infectious disease. He will have an appointment with them later this week. The patient has an open wound with granulation tissue, which is being monitored for healing progress. There is no exposed bone currently felt, suggesting some improvement in the wound condition. The wound care plan includes the potential use of Integra and a skin graft once the infection is controlled. Attestation: Documentation on this patient encounter was supported using ambient scribe technology/ voice AI technology. The patient consented to recording for the purpose of documenting the encounter. Provider reviewed content of the generated note prior to signature. 06 MAY 2025: The patient is an 84-year-old male presenting with chronic wounds on the left heel and sacrum. The left heel wound measures 4.5 cm by 2.6 cm and has no exposed bone, only exposed plantar fascia. The sacral wound is a stage 3 ulcer measuring 2 cm by 1.5 cm, also with no exposed bone. The patient reports that the wounds are healing, with home health nurses noting significant improvement over time. The patient has been receiving infusions, which may have contributed to the healing process. The patient has been advised against continued antibiotic use by the infectious disease physician due to potential risks outweighing benefits. The patient also experiences neuropathy, which is exacerbated by back issues, causing significant discomfort in the leg. The patient is considering steroid injections for back pain, although aware of potential impacts on wound healing (which was discussed at the visit today). The patient has a history of skin cancer diagnosed earlier this year, with surgery performed in February. ros: - Integumentary: Reports healing wounds on left heel and sacrum - Neurological: Reports neuropathy and leg discomfort due to back issues Attestation: Documentation on this patient encounter was supported using ambient scribe technology/ voice AI technology. The patient consented to recording for the purpose of documenting the encounter. Provider reviewed content of the generated note prior to signature. 27 May 2025: Doing well overall. Reports that the heal wound seems smaller. 10 June 2025: Discussed the extensive undermining of the sacral wound. There is no exposed bone but discussed MRI and nutrition labs in anticipation for potential surgery as the patient is more willing to potentially go along with this plan as we are seeing limited improvement. As for the foot wound, patient continues the Deirdre dressing changes which seem to be helping. No exposed bone. Wound is smaller 26 Jun 2025: Doing well overall. Discussed labs (A1c of 8, Albumin 3.6, Platelets 143, and Hgb 11.9) Patient is not interested in surgery at this point as he does not want to be in the hospital. He is worried also that he will pivot and shear any skin grafting that is done on the foot as he uses this region to pivot. 08 July 2025: Discussed with the patient and his the results of the MRI (no read from the radiologist yet). Per my read I do see evidence that the sacral/coccygeal region was eroded at some point secondary to osteomyelitis. I discussed with them potential implications, and how there is no current the exposed bone and this may be from previous osteomyelitis which may or may not be contributing to the current state of the wound. 29 July 2025: Recently went to the ED 2/2 concern from home health about the left calf wound. He was not admitted and was placed on oral antibiotics. They went to [facility] for evaluation of a pressure offloading b oot/splint. This was unsuccessful 12 August 2025: Patient is seeing Dr. Casas for the heel and he is assuming care of the heel wound. Mr. Napoles has agreed to go to the operating room with Dr. Casas. Will defer care to Dr. Casas for that he will. Some concern for infection from home health of the sacral wound. Here to examine it today. The patient is are having issues with the VAC holding suction and therefore there is some concern for biofilm buildup CURRENT ENCOUNTER, 02 Sep 2025: Working well with Dr. Casas on his heel wound and is very happy with the care he is receiving. From a sacral wound standpoint, he has a persistent sacral wound that is being treated with 3 times per week VAC changes. Objective Data Objective Data Vital Signs: Vital Signs Temp Pulse Resp BP O2 Del Method 96.3 F L 82 16 134/76 H Room Air 09/02/25 10:21 09/02/25 10:21 09/02/25 10:21 09/02/25 10:21 08/28/25 11:04 Oxygen Delivery Method Room Air Lab / Micro Data Micro: Microbiology 08/28/25 11:20 Wound - Heel, Left Gram Stain - Final 08/28/25 11:20 Wound - Heel, Left Wound Culture - Final Corynebacterium striatum 08/28/25 11:20 Wound - Heel, Left Anaerobic Culture - Final No anaerobic bacteria isolated. Charges/Coding Procedures Integumentary [id number]: [id number] Ginette bone 20 sq cm/< Physical Exam Narrative Sacral wound Stage 4 Wound is 2.5 x 2.5 and undermines approximately about 2.5 cm medially and superiorly. It is 4 x 6 if you count the undermining . There is in fact exposed bone at the base of the wound (sacrum) today No cardinal signs of inflammation (no swelling, redness, warmth, or tenderness to palpation). 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 Laterality: Not Applicable (Midline) Wound Grade/Stage: Stage IV Type of Debridement: Excisional debridement Anesthesia Used: 4% Lidocaine Solution and - (10 cc of 1% lidocaine with 1- 200,000 epinephrine) Depth: to bone Percentage of wound debrided: 50 Instrument Used: 7mm curette and - (Rongeur and pickups) Tissue Removed: Necrotic sequestrum/bone at the base of the wound as well as fibrinous exud Severity: Necrosis of Bone Amount of bleeding with debridement: Moderate Bleeding Controlled with: Pressure, Compression and gauze and Gel Foam Debridement Free Text: There is exposed bone at the base of the wound and a clean rongeur was used after debridement of the surrounding soft tissue for a bone biopsy which was sent for pathology as well as cultures. Operative Diagnosis: Clinically osteomyelitis Post-Debridement Measurements and Additional Note: Post-Debridement Measurements/Treatment WC - Nurse 1 - General Ulcer Assessment Start: 08/21/25 11:31 Freq: Status: Active Protocol: CHEL Activity Type Activity Date Activity User E-sign Co-sign Detail Recorded Client Recorded Date Recorded By Document 08/21/25 11:31 RB [id number] 08/21/25 11:40 RB Document 08/28/25 11:04 TS [id number] 08/28/25 11:16 TS Document 09/02/25 10:21 JF [id number] 09/02/25 10:26 JF 08/21/25 08/28/25 09/02/25 11:31 11:04 10:21 WC - Today's Visit Information Type of service Follow-up Visit Follow-up Visit Follow-up Visit (Physician/CONDOMINIUM PROPERTY MANAGER (Physician/CONDOMINIUM PROPERTY MANAGER (Physician/CONDOMINIUM PROPERTY MANAGER ) ) ) Arrival Mode Wheelchair Wheelchair Ambulatory, Wheelchair Transfer Assistance Manual Accompanied by Patient Identification Verified (Name & Yes Yes Yes ) Patient Requires Transmission-Based No No No Precautions Safety Precautions Fall Prevention Vital Signs Temperature (97.8 F-99.1 F) 96.1 F L 96.5 F L 96.3 F L Temperature Source Temporal Temporal Temporal Pulse Rate (60-100) 72 86 82 Pulse Location Monitor Monitor Monitor Respiratory Rate (12-18) 18 17 16 Respiratory rate source Observation Observation Observation Oxygen Delivery Method Room Air Room Air Blood Pressure (90/60-120/80) 107/67 118/67 134/76 H Blood Pressure Mean (mm Hg) 80 84 95 Source Monitor Manual Monitor Position Sitting Semi-Fowlers Blood Pressure Location Left Arm Right Arm Left Arm History Since Last Visit- (Skip if this is Patient's initial visit) Have you changed medications since your No No Yes last visit? Any new allergies or adverse reactions No No No Had a fall/change in ADL's that may No No No increase risk of falls Signs or symptoms of abuse and/or No No No neglect since last visit Have you been in the hospital since your No No No last visit? Has dressing in place as prescribed Yes Yes Yes Has compression in place as prescribed Yes N/A N/A Has offloadiing in place as prescribed N/A N/A Yes Experienced any changes in pain level or No No management Left Footwear Surgical Shoe Regular Shoe with pressure relief insole Right Footwear Regular Shoe Regular Shoe Pain Scale: 0-10 Numeric Is Patient Pain Free? Yes Yes Yes WC - Nurse 1 - General Ulcer Measurement Start: 08/21/25 11:31 Freq: Status: Active Protocol: Activity Type Activity Date Activity User E-sign Co-sign Detail Recorded Client Recorded Date Recorded By Document 08/21/25 11:31 RB [id number] 08/21/25 11:40 RB Document 08/28/25 11:04 TS [id number] 08/28/25 11:16 TS Document 09/02/25 10:21 JF [id number] 09/02/25 10:26 JF 08/21/25 08/28/25 09/02/25 11:31 11:04 10:21 Wound Center Nurse 1 #2 L Heel -Combined with other wound No No -Current Size (cm) - Length 4.5 4.5 -Current Size (cm) - Width 4 5 -Current Size (cm) - Depth 0.3 0.3 -Total Square Cm 18.0 22.5 -Date of Last Picture (Recall this 08/21/25 08/28/25 field) -Photo Taken Yes Yes -Tunneling No No -Undermining/Tunneling No No -Circular Undermining No No -Exudate Amt Large Large -Exudate Type Serosanguineous Serosanguineous -Wound Margin Distinct, Distinct, Outline Outline Attached Attached -Granulation Amt Large (67-100%) Medium (34-66%) -Granulation Quality [place],Red [place],Red -Slough/Fibrin Yes Yes -Necrosis Amt Medium (34-66%) Medium (34-66%) -Necrotic Tissue Type Adherent Slough Eschar -Structure Exposed N/A None/Limited to Skin Breakdown -Texture (Andreea-wound Skin Appearance) Assessed Assessed -Moisture (Andreea-wound Skin Appearance) Assessed, Assessed Maceration -Color (Andreea-wound Skin Appearance) Assessed Assessed -Temperature (Andreea-wound Skin No Abnormality No Abnormality Appearance) (Pt Warm) (Pt Warm) -Tenderness on Palpation (Andreea-wound No Skin Appearance) -Ulcer Cleansing Wound Cleanser Soap and Water -Foul Odor after Cleansing No No -Anesthetic Used 5% Lidocaine 5% Lidocaine Gel Gel #1 Sacral Cluster -Combined with other wound No -Current Size (cm) - Length 3 -Current Size (cm) - Width 1 -Current Size (cm) - Depth 1.6 -Total Square Cm 3 -Photo Taken Yes -Epithelialization None Present -Tunneling No -Undermining/Tunneling Yes -Undermining/Tunneling Starts (O'clock 7 ) -Undermining/Tunneling Ends (O'clock) 3 -Maximum Distance (cm) 3.1 -Circular Undermining No -Exudate Amt Medium -Exudate Type Serosanguineous -Wound Margin Flat & Intact -Granulation Amt Medium (34-66%) -Granulation Quality [place] -Slough/Fibrin Yes -Necrosis Amt Medium (34-66%) -Necrotic Tissue Type Adherent Slough -Structure Exposed N/A -Texture (Andreea-wound Skin Appearance) Assessed -Moisture (Andreea-wound Skin Appearance) No Abnormality, Maceration -Color (Andreea-wound Skin Appearance) Assessed -Temperature (Andreea-wound Skin No Abnormality Appearance) (Pt Warm) -Tenderness on Palpation (Andreea-wound No Skin Appearance) -Ulcer Cleansing Soap and Water -Foul Odor after Cleansing No -Anesthetic Used 5% Lidocaine Gel Lower Limb Edema Present Yes NA Left Calf (cm) 37.5 Point of measurement (cm from the medial 32.5 instep) Left Ankle (cm) 24 Point of Measurement (cm from the medial 25 instep) WC - Nurse 2 - General Ulcer CM Notes Start: 08/21/25 11:31 Freq: Status: Active Protocol: Activity Type Activity Date Activity User E-sign Co-sign Detail Recorded Client Recorded Date Recorded By Document 08/21/25 11:44 JF [id number] 08/21/25 11:46 JF Document 08/28/25 11:23 JF [id number] 08/28/25 11:24 JF 08/21/25 08/28/25 11:44 11:23 Wound Center Nurse 2 #2 L Heel -Time 11:44 11:24 -Correct Patient Yes Yes -Correct Side, Site, Position Yes Yes -Correct Procedure Yes Yes -Procedure Performed Yes Yes -Type of Procedure Debridement Debridement -Clinical Debridement Muscle / Fascia Muscle / Fascia -Tissue Removed Muscle Muscle -Post Debridement (cm) - Length 4.6 5 -Post Debridement (cm) - Width 5.5 4.1 -Post Debridement (cm) - Depth 0.3 0.2 -Total Square (Post) (cm) 25.30 20.5 -Area of Debridement (cm) - Length 4.6 5 -Area of Debridement (cm) - Width 5.5 4.1 -Total Square (Area) (cm) 25.30 20.5 -Tunneling No No -Undermining/Tunneling No No -Circular Undermining No No -Wound/Ulcer Outcome Not Healed Not Healed -Ulcer Cleansing Rinsed/ Rinsed/ Irrigated with Irrigated with Saline Saline -Foul Odor after Cleansing No No -Bioengineered Tissue No No -Bleeding Controlled with Pressure Pressure -Treatment Response Procedure Procedure Tolerated Well Tolerated Well -Offloading Yes Yes -Type of Offloading Surgical Shoe Surgical Shoe -Debridement - Muscle / Fascia, 1st Yes Yes 20sq cm -Debridement, Muscle/Fascia, ea addt'l 1 1 20sq cm or part thereof Pain Scale: 0-10 Numeric Is Patient Pain Free? Yes Yes - Nurse 3 - General Ulcer D/C NN Start: 08/21/25 11:31 Freq: Status: Active Protocol: Activity Type Activity Date Activity User E-sign Co-sign Detail Recorded Client Recorded Date Recorded By Document 08/21/25 12:05 CP [id number] 08/21/25 12:06 CP Document 08/28/25 11:30 TS [id number] 08/28/25 11:40 TS 08/21/25 08/28/25 12:05 11:30 Wound Care Center Nurse 3 #2 L Heel -Ulcer Cleansing Rinsed/ Rinsed/ Irrigated with Irrigated with Saline Saline -Primary Dressing Applied AMD Dressing 4x4 -Other Dressing dakins moist abd and kerlix gauze -Primary Dressing Covered/Secured with Dry Gauze & Secured with Roll Gauze, Tape Secured with Tape -AMD Dressing 4x4 2 LLE -Lotion applied to leg before No compression wrap -Tubular Bandage Single Layer Single Layer -Size of Tubigrip Used Size E Size E -Size E ($) 1 1 Pain Scale: 0-10 Numeric Is Patient Pain Free? Yes Yes - Visit Discharge Discharge Condition Stable Stable Ambulatory Status Wheelchair Wheelchair Transportation Private Auto Private Auto Medication Reconcilliation completed & No provided to patient/care provider Clinical Summary of Care Provided Yes Yes Facility Type Home Health Orders Sent Yes Assessment/Plan Assessment/Plan (1) Stage 4 decubitus ulcer: CODE(S): L89.94 - Pressure ulcer of unspecified site, stage 4 QUALIFIERS: Pressure injury location: sacral region Qualified Code(s): L89.154 - Pressure ulcer of sacral region, stage 4 PLAN: Bone biopsy is obtained today for culture and pathologic analysis Continue antibiotics per Dr. Casas for the heel wound, plastics will follow-up on culture for the sacral wound and refer to infectious disease. Talked the patient extensively and his today about sacral osteomyelitis. Flap coverage would give potentially the best chance for wound healing over the exposed bone. Patient is reluctant to undergo flap reconstruction as, while he is able to lay on his side, he is unable to not sit up in bed and sit (would put significant pressure immediately on the flap and breakdown). He is not interested in any debridement in the OR with flap reconstruction, but I did talk to he and his extensively about how this would give healthy vascularized tissue over the exposed bone and help treat any underlying exposed bone osteomyelitis. He would like to continue wound care Plan for wet-to-dry dressings with twice daily Deanna's Follow-up with me in 1 week.
--- NOTE | 2025-09-03 09:06 | WC ---
PHOTO-SACRUM 09/02/25
[2025-09-04 08:51] VITALS: BP 121/65; PULSE 80; RESP 15; TEMP 36
--- NOTE | 2025-09-04 10:27 | PCM.WC.PN ---
History of Present Illness Date of Service: 09/04/25 Chief Complaint: Follow-up on buttocks right and left heel wounds that have been going on for months. History of Wound: Chief Complaint: Follow-up on buttocks right and left heel wounds that have been going on for months. 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 He has not walked in several years. He is able to stand up to perform transfers, but does not move his ankle joints. He lays on his chair most of the day. And has developed a sacral wound that he has been following at the wound care center for as well as a left calcaneal wound in the setting of a recent hospitalization this past year, both of which he has been following here at the wound center with various advanced practice providers. Wound culture of left heel ulcer from 08/08/24 positive for MDRO Pseudomonas aeruginosa. Referral to infectious disease for treatment s/p antibiotic regimen. MRI of Pelvis 08/16/24 - Sacral decubitus ulcer with sacrococcygeal osteomyelitis. Treated by infectious disease with long-term course of IV antibiotics. Progress of Wound: The sacral ulcer with bone palpable but covered with granulation tissue and is beefy pink. There is undermining present, which is stable. The perineal ulcer (skin tear proximal to sacral ulcer) remains healed. Left medial heel appears improved with pink ulcer bed and much less non viable tissue present. He is sleeping on the low air loss mattress. 10 December 2024: Patient reports that he has not had any vascular workup for the lower extremity. He has a history of a DVT in the left lower extremity in the remote history and remains on Eliquis for anticoagulation. He reports episodic swelling in the left lower extremity that appears to be worsening the condition of the wound. He is not having any shortness of breath. He is not having any systemic signs or symptoms of infection. 17 December 2024: Doing well with wound care (VAC dressings) which started this past Tuesday. They have an appointment for ABIs and US for evaluation of the lower extremity. He has not gotten his xray of the foot yet, but is planning to get that soon (discussed). Labs obtained 14 Dec 2024 A1C 6.7 Prealb 27 Alb 3.4 Progress of Wound: 07 January 2025: Imaging reviewed. No osteomyelitis on the xray of the foot. There were no DVT on venous study. Arterial study demonstrated noncompressible vessels 2/2 to significant calcifications of the vasculature Patient has been doing well overall, however. Tolerating dressing changes. 21 January 2025: Doing well overall with dressing changes except there is been an odor coming from the sacral wound after the VAC changes, his would like us to look today. Patient has seen Dr. Farooq (heart doctor) this past week on 19 January 2025 and he discontinued his amiodarone and his blood thinner (patient has been regular with rate and rhythm). He has been off the blood thinner for greater than 48 hours now. Patient also has a follow-up of his ABIs with vascular surgery on 23 January 2025 (2 days from now) To assess need for intervention for increased blood flow to the foot wound. There is another area of concern in the left forearm today that the patient and his would like me to biopsy. It has been there for several months and growing. It is a scaly/scabby lesion on the left proximal dorsal forearm. Biopsy results (from biopsy on 07 January 2025) of the heel wound did not demonstrate any signs of malignancy. 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 This was discussed with the patient and his . Patient doing well overall and is tolerating the TheraSkin applications to the heel. Wound VAC dressing changes are going well as well 18 Feb 2025: Doing well overall. Tolerating theraskin. On the scheduled for excision of the SSC of the left forearm next week. 27 Feb 2025: Tolerating TheraSkin. No fevers chills. All questions answered about once his excision procedure for left forearm squamous cell carcinoma. Patient has been seeing his oncologist and has been getting infusions to increase his white blood cell counts and promote healing. 04 Mar 2025: Reviewed pathology with the patient and his at today's visit from the left forearm squamous cell carcinoma excision. It was negative for malignancy, margins were free from carcinoma. Patient tolerated the procedure well and is feeling well. No pain. No numbness in the forearm. No drainage or fevers chills. Patient here for the foot wound and the sacral wound is well. Reports excellent VAC changes and tolerance of the TheraSkin. 14 Mar 2025: Doing well overall. No appointment this past Tuesday secondary to and TheraSkin fell off from the heal on its own yesterday. There is notes there is scan ordered for today and it will be replaced on this coming Tuesday. 18 March 2025: Doing well overall. No significant change since last appoint. Endorses good dressing changes 25 March 2025: Doing well overall. No big changes. Tolerating TheraSkin treatments and VAC changes. 22 March 2025: Doing well overall. Tolerating TheraSkin 08 April 2025: Tolerating TheraSkin. No fevers chills or drainage. Reports improvement in the size of the sacral wound and persistent heel wound 22 April 2025: The patient is an 84-year-old male presenting with wound and osteomyelitis of the left heal and associated need for wound care. The osteomyelitis was identified through a culture that grew bacteria, indicating an infection in the bone. The patient has been on antibiotics for infection management, with four days remaining in the current course. Patient has been on amoxicillin and linezolid per infectious disease. He will have an appointment with them later this week. The patient has an open wound with granulation tissue, which is being monitored for healing progress. There is no exposed bone currently felt, suggesting some improvement in the wound condition. The wound care plan includes the potential use of Integra and a skin graft once the infection is controlled. Attestation: Documentation on this patient encounter was supported using ambient scribe technology/ voice AI technology. The patient consented to recording for the purpose of documenting the encounter. Provider reviewed content of the generated note prior to signature. 06 MAY 2025: The patient is an 84-year-old male presenting with chronic wounds on the left heel and sacrum. The left heel wound measures 4.5 cm by 2.6 cm and has no exposed bone, only exposed plantar fascia. The sacral wound is a stage 3 ulcer measuring 2 cm by 1.5 cm, also with no exposed bone. The patient reports that the wounds are healing, with home health nurses noting significant improvement over time. The patient has been receiving infusions, which may have contributed to the healing process. The patient has been advised against continued antibiotic use by the infectious disease physician due to potential risks outweighing benefits. The patient also experiences neuropathy, which is exacerbated by back issues, causing significant discomfort in the leg. The patient is considering steroid injections for back pain, although aware of potential impacts on wound healing (which was discussed at the visit today). The patient has a history of skin cancer diagnosed earlier this year, with surgery performed in February. ros: - Integumentary: Reports healing wounds on left heel and sacrum - Neurological: Reports neuropathy and leg discomfort due to back issues Attestation: Documentation on this patient encounter was supported using ambient scribe technology/ voice AI technology. The patient consented to recording for the purpose of documenting the encounter. Provider reviewed content of the generated note prior to signature. 27 May 2025: Doing well overall. Reports that the heal wound seems smaller. 10 June 2025: Discussed the extensive undermining of the sacral wound. There is no exposed bone but discussed MRI and nutrition labs in anticipation for potential surgery as the patient is more willing to potentially go along with this plan as we are seeing limited improvement. As for the foot wound, patient continues the Deirdre dressing changes which seem to be helping. No exposed bone. Wound is smaller 26 Jun 2025: Doing well overall. Discussed labs (A1c of 8, Albumin 3.6, Platelets 143, and Hgb 11.9) Patient is not interested in surgery at this point as he does not want to be in the hospital. He is worried also that he will pivot and shear any skin grafting that is done on the foot as he uses this region to pivot. 08 July 2025: Discussed with the patient and his the results of the MRI (no read from the radiologist yet). Per my read I do see evidence that the sacral/coccygeal region was eroded at some point secondary to osteomyelitis. I discussed with them potential implications, and how there is no current the exposed bone and this may be from previous osteomyelitis which may or may not be contributing to the current state of the wound. 29 July 2025: Recently went to the ED 2/2 concern from home health about the left calf wound. He was not admitted and was placed on oral antibiotics. They went to [facility] for evaluation of a pressure offloading boot/splint. This was unsuccessful 12 August 2025: Patient is seeing Dr. Casas for the heel and he is assuming care of the heel wound. Mr. Napoles has agreed to go to the operating room with Dr. Casas. Will defer care to Dr. Casas for that he will. Some concern for infection from home health of the sacral wound. Here to examine it today. The patient is are having issues with the VAC holding suction and therefore there is some concern for biofilm buildup CURRENT ENCOUNTER, 02 Sep 2025: Working well with Dr. Casas on his heel wound and is very happy with the care he is receiving. From a sacral wound standpoint, he has a persistent sacral wound that is being treated with 3 times per week VAC changes. Subjective Subjective Patient is 85-year-old diabetic male presenting to wound care center today follow-up evaluation of full-thickness wound to the left heel. Patient is taking antibiotics as prescribed. They are doing dressing changes as discussed. They did get the foam pad delivered to their house to home health care which is Hydrofera Blue. The is wanting to know if this is the correct pad to use. His blood sugars well-controlled. She mitts improvement to the wound. Denies trauma. Admits to offloading. Denies constitutional symptoms. No other pedal complaints at this time. Objective Data Objective Data Both wounds look better but the heel looks macerated. Scheduling him for an MRI and we will go from there. We will continue the wound VAC at 150 mL of meters mercury he is tolerating it well the wound VAC had to be removed last night because it lost its suction. Vital Signs: Vital Signs Temp Pulse Resp BP O2 Del Method 96.8 F L 80 15 121/65 H Room Air 09/04/25 08:51 09/04/25 08:51 09/04/25 08:51 09/04/25 08:51 08/28/25 11:04 Oxygen Delivery Method Room Air Lab / Micro Data Attestation: I reviewed the patient's lab results. Micro: Microbiology 09/02/25 10:50 Bone - Sacral Bone Gram Stain - Final 09/02/25 10:50 Bone - Sacral Bone Wound Culture - Preliminary Staphylococcus species Gram Positive Cocci Alpha Hemolytic Streptococcus Gram positive faye 08/28/25 11:20 Wound - Heel, Left Gram Stain - Final 08/28/25 11:20 Wound - Heel, Left Wound Culture - Final Corynebacterium striatum 08/28/25 11:20 Wound - Heel, Left Anaerobic Culture - Final No anaerobic bacteria isolated. Physical Exam Narrative Vascular: DP and PT pulses are palpable to left extremity. CFT is brisk. No erythema or drainage appreciated. Skin temperature is warm to warm from proximal ankle to distal digit without focal increase appreciated. Neurological: Light touch is intact. Patient does not respond to painful stimuli. Dermatological: Full-thickness wound to the left heel measuring at 5.1 x 4.0 x 0.4 cm wound base is fibrogranular nature. Negative probe to bone Excisional debridement down to including subcutaneous tissue, fascia and muscle with a number 5 mm dermal curette to the full-thickness wound to the left heel. Predebridement measurement was 5.0 x 3.8 x 0.2 cm. Postdebridement measurement is 5.1 x 4.0 x 0.4 cm. Musculoskeletal: No pain to palpation to full-thickness wound to left lower extremity. No pain with calf compression. Skin Skin Narrative: Open wounds on buttocks clean well marcated Wound Narrative: Stage II Debridement Note Debridement Note Wound Grade/Stage: Stage IV Debridement Free Text: Excisional debridement down to including subcutaneous tissue, fascia and muscle with a number 5 mm dermal curette to the full-thickness wound to the left heel. Predebridement measurement was 5.0 x 3.8 x 0.2 cm. Postdebridement measurement is 5.1 x 4.0 x 0.4 cm. Post-Debridement Measurements and Additional Note: Post-Debridement Measurements/Treatment - Nurse 1 - General Ulcer Assessment Start: 08/21/25 11:31 Freq: Status: Active Protocol: CHEL Activity Type Activity Date Activity User E-sign Co-sign Detail Recorded Client Recorded Date Recorded By Document 08/21/25 11:31 RB [id number] 08/21/25 11:40 RB Document 08/28/25 11:04 TS [id number] 08/28/25 11:16 TS Document 09/02/25 10:21 JF [id number] 09/02/25 10:26 JF Document 09/04/25 08:51 ML [id number] 09/04/25 09:00 ML 08/21/25 08/28/25 09/02/25 11:31 11:04 10:21 - Today's Visit Information Type of service Follow-up Visit Follow-up Visit Follow-up Visit (Physician/CAPTAIN/CHECK AIRMAN (Physician/CAPTAIN/CHECK AIRMAN (Physician/CAPTAIN/CHECK AIRMAN ) ) ) Arrival Mode Wheelchair Wheelchair Ambulatory, Wheelchair Transfer Assistance Manual Accompanied by Patient Identification Verified (Name & Yes Yes Yes ) Patient Requires Transmission-Based No No No Precautions Safety Precautions Fall Prevention Vital Signs Temperature (97.8 F-99.1 F) 96.1 F L 96.5 F L 96.3 F L Temperature Source Temporal Temporal Temporal Pulse Rate (60-100) 72 86 82 Pulse Location Monitor Monitor Monitor Respiratory Rate (12-18) 18 17 16 Respiratory rate source Observation Observation Observation Oxygen Delivery Method Room Air Room Air Blood Pressure (90/60-120/80) 107/67 118/67 134/76 H Blood Pressure Mean (mm Hg) 80 84 95 Source Monitor Manual Monitor Position Sitting Semi-Fowlers Blood Pressure Location Left Arm Right Arm Left Arm History Since Last Visit- (Skip if this is Patient's initial visit) Have you changed medications since your No No Yes last visit? Any new allergies or adverse reactions No No No Had a fall/change in ADL's that may No No No increase risk of falls Signs or symptoms of abuse and/or No No No neglect since last visit Have you been in the hospital since your No No No last visit? Has dressing in place as prescribed Yes Yes Yes Has compression in place as prescribed Yes N/A N/A Has offloadiing in place as prescribed N/A N/A Yes Experienced any changes in pain level or No No management Left Footwear Surgical Shoe Regular Shoe with pressure relief insole Right Footwear Regular Shoe Regular Shoe Pain Scale: 0-10 Numeric Is Patient Pain Free? Yes Yes Yes 09/04/25 08:51 WC - Today's Visit Information Type of service Initial Visit Arrival Mode Wheelchair Transfer Assistance None Accompanied by Patient Identification Verified (Name & Yes ) Patient Requires Transmission-Based No Precautions Safety Precautions Vital Signs Temperature (97.8 F-99.1 F) 96.8 F L Temperature Source Temporal Pulse Rate (60-100) 80 Pulse Location Monitor Respiratory Rate (12-18) 15 Respiratory rate source Monitor Oxygen Delivery Method Blood Pressure (90/60-120/80) 121/65 H Blood Pressure Mean (mm Hg) 83 Source Monitor Position Sitting Blood Pressure Location Right Arm History Since Last Visit- (Skip if this is Patient's initial visit) Have you changed medications since your No last visit? Any new allergies or adverse reactions No Had a fall/change in ADL's that may No increase risk of falls Signs or symptoms of abuse and/or No neglect since last visit Have you been in the hospital since your No last visit? Has dressing in place as prescribed Yes Has compression in place as prescribed Yes Has offloadiing in place as prescribed N/A Experienced any changes in pain level or No management Left Footwear Right Footwear Pain Scale: 0-10 Numeric Is Patient Pain Free? Yes WC - Nurse 1 - General Ulcer Measurement Start: 08/21/25 11:31 Freq: Status: Active Protocol: Activity Type Activity Date Activity User E-sign Co-sign Detail Recorded Client Recorded Date Recorded By Document 08/21/25 11:31 RB [id number] 08/21/25 11:40 RB Document 08/28/25 11:04 TS [id number] 08/28/25 11:16 TS Document 09/02/25 10:21 JF [id number] 09/02/25 10:26 JF Document 09/04/25 08:51 ML [id number] 09/04/25 09:00 ML 08/21/25 08/28/25 09/02/25 11:31 11:04 10:21 Wound Center Nurse 1 #2 L Heel -Combined with other wound No No -Current Size (cm) - Length 4.5 4.5 -Current Size (cm) - Width 4 5 -Current Size (cm) - Depth 0.3 0.3 -Total Square Cm 18.0 22.5 -Date of Last Picture (Recall this 08/21/25 08/28/25 field) -Photo Taken Yes Yes -Tunneling No No -Undermining/Tunneling No No -Circular Undermining No No -Exudate Amt Large Large -Exudate Type Serosanguineous Serosanguineous -Wound Margin Distinct, Distinct, Outline Outline Attached Attached -Granulation Amt Large (67-100%) Medium (34-66%) -Granulation Quality [place],Red -Slough/Fibrin Yes Yes -Necrosis Amt Medium (34-66%) Medium (34-66%) -Necrotic Tissue Type Adherent Slough Eschar -Structure Exposed N/A None/Limited to Skin Breakdown -Texture (Andreea-wound Skin Appearance) Assessed Assessed -Moisture (Andreea-wound Skin Appearance) Assessed, Assessed Maceration -Color (Andreea-wound Skin Appearance) Assessed Assessed -Temperature (Andreea-wound Skin No Abnormality No Abnormality Appearance) (Pt Warm) (Pt Warm) -Tenderness on Palpation (Andreea-wound No Skin Appearance) -Ulcer Cleansing Wound Cleanser Soap and Water -Foul Odor after Cleansing No No -Anesthetic Used 5% Lidocaine 5% Lidocaine Gel Gel #1 Sacral Cluster -Combined with other wound No -Current Size (cm) - Length 3 -Current Size (cm) - Width 1 -Current Size (cm) - Depth 1.6 -Total Square Cm 3 -Photo Taken Yes -Epithelialization None Present -Tunneling No -Undermining/Tunneling Yes -Undermining/Tunneling Starts (O'clock 7 ) -Undermining/Tunneling Ends (O'clock) 3 -Maximum Distance (cm) 3.1 -Circular Undermining No -Exudate Amt Medium -Exudate Type Serosanguineous -Wound Margin Flat & Intact -Granulation Amt Medium (34-66%) -Granulation Quality [place] -Slough/Fibrin Yes -Necrosis Amt Medium (34-66%) -Necrotic Tissue Type Adherent Slough -Structure Exposed N/A -Texture (Andreea-wound Skin Appearance) Assessed -Moisture (Andreea-wound Skin Appearance) No Abnormality, Maceration -Color (Andreea-wound Skin Appearance) Assessed -Temperature (Andreea-wound Skin No Abnormality Appearance) (Pt Warm) -Tenderness on Palpation (Andreea-wound No Skin Appearance) -Ulcer Cleansing Soap and Water -Foul Odor after Cleansing No -Anesthetic Used 5% Lidocaine Gel Lower Limb Edema Present Yes NA Left Calf (cm) 37.5 Point of measurement (cm from the medial 32.5 instep) Left Ankle (cm) 24 Point of Measurement (cm from the medial 25 instep) 09/04/25 08:51 Wound Center Nurse 1 #2 L Heel -Combined with other wound -Current Size (cm) - Length 5.5 -Current Size (cm) - Width 4.5 -Current Size (cm) - Depth 0.3 -Total Square Cm 24.75 -Date of Last Picture (Recall this field) -Photo Taken -Tunneling -Undermining/Tunneling -Circular Undermining -Exudate Amt Large -Exudate Type Serosanguineous -Wound Margin -Granulation Amt -Granulation Quality -Slough/Fibrin Yes -Necrosis Amt Medium (34-66%) -Necrotic Tissue Type Adherent Slough -Structure Exposed -Texture (Andreea-wound Skin Appearance) Assessed -Moisture (Andreea-wound Skin Appearance) Assessed -Color (Andreea-wound Skin Appearance) Assessed -Temperature (Andreea-wound Skin No Abnormality Appearance) (Pt Warm) -Tenderness on Palpation (Andreea-wound No Skin Appearance) -Ulcer Cleansing Soap and Water -Foul Odor after Cleansing No -Anesthetic Used 5% Lidocaine Gel #1 Sacral Cluster -Combined with other wound -Current Size (cm) - Length -Current Size (cm) - Width -Current Size (cm) - Depth -Total Square Cm -Photo Taken -Epithelialization -Tunneling -Undermining/Tunneling -Undermining/Tunneling Starts (O'clock ) -Undermining/Tunneling Ends (O'clock) -Maximum Distance (cm) -Circular Undermining -Exudate Amt -Exudate Type -Wound Margin -Granulation Amt -Granulation Quality -Slough/Fibrin -Necrosis Amt -Necrotic Tissue Type -Structure Exposed -Texture (Andreea-wound Skin Appearance) -Moisture (Andreea-wound Skin Appearance) -Color (Andreea-wound Skin Appearance) -Temperature (Andreea-wound Skin Appearance) -Tenderness on Palpation (Andreea-wound Skin Appearance) -Ulcer Cleansing -Foul Odor after Cleansing -Anesthetic Used Lower Limb Edema Present Left Calf (cm) Point of measurement (cm from the medial instep) Left Ankle (cm) Point of Measurement (cm from the medial instep) WC - Nurse 2 - General Ulcer CM Notes Start: 08/21/25 11:31 Freq: Status: Active Protocol: Activity Type Activity Date Activity User E-sign Co-sign Detail Recorded Client Recorded Date Recorded By Document 08/21/25 11:44 MARK ANTHONY [id number] 08/21/25 11:46 Document 08/28/25 11:23 [id number] 08/28/25 11:24 Document 09/02/25 10:38 [id number] 09/02/25 11:01 Document 09/04/25 09:08 MARK ANTHONY [id number] 09/04/25 09:11 08/21/25 08/28/25 09/02/25 11:44 11:23 10:38 Wound Center Nurse 2 #2 L Heel -Time 11:44 11:24 -Correct Patient Yes Yes -Correct Side, Site, Position Yes Yes -Correct Procedure Yes Yes -Procedure Performed Yes Yes -Type of Procedure Debridement Debridement -Clinical Debridement Muscle / Fascia Muscle / Fascia -Tissue Removed Muscle Muscle -Post Debridement (cm) - Length 4.6 5 -Post Debridement (cm) - Width 5.5 4.1 -Post Debridement (cm) - Depth 0.3 0.2 -Total Square (Post) (cm) 25.30 20.5 -Area of Debridement (cm) - Length 4.6 5 -Area of Debridement (cm) - Width 5.5 4.1 -Total Square (Area) (cm) 25.30 20.5 -Tunneling No No -Undermining/Tunneling No No -Circular Undermining No No -Wound/Ulcer Outcome Not Healed Not Healed -Ulcer Cleansing Rinsed/ Rinsed/ Irrigated with Irrigated with Saline Saline -Foul Odor after Cleansing No No -Bioengineered Tissue No No -Bleeding Controlled with Pressure Pressure -Treatment Response Procedure Procedure Tolerated Well Tolerated Well -Offloading Yes Yes -Type of Offloading Surgical Shoe Surgical Shoe -Debridement - Muscle / Fascia, 1st Yes Yes 20sq cm -Debridement, Muscle/Fascia, ea addt'l 1 1 20sq cm or part thereof #1 Sacral Cluster -Time 10:39 -Correct Patient Yes -Correct Side, Site, Position Yes -Correct Procedure Yes -Procedure Performed Yes -Type of Procedure Debridement -Clinical Debridement Bone -Tissue Removed Non-viable tissue -Post Debridement (cm) - Length 3.1 -Post Debridement (cm) - Width 1.1 -Post Debridement (cm) - Depth 1.6 -Total Square (Post) (cm) 3.41 -Area of Debridement (cm) - Length 3.1 -Area of Debridement (cm) - Width 1.1 -Total Square (Area) (cm) 3.41 -Tunneling No -Undermining/Tunneling No -Circular Undermining No -Wound/Ulcer Outcome Not Healed -Ulcer Cleansing Rinsed/ Irrigated with Saline -Foul Odor after Cleansing No -Bioengineered Tissue No -Bleeding Controlled with Pressure, Surgifoam 3 1/8 x 5 (lg) -Surgifoam (3 1/8 x 5) Large 1 -Treatment Response Procedure Tolerated Well -Offloading No -Debridement - Bone, 1st 20sq cm Yes Pain Scale: 0-10 Numeric Is Patient Pain Free? Yes Yes Yes 09/04/25 09:08 Wound Center Nurse 2 #2 L Heel -Time 09:09 -Correct Patient Yes -Correct Side, Site, Position Yes -Correct Procedure Yes -Procedure Performed Yes -Type of Procedure Debridement -Clinical Debridement Muscle / Fascia -Tissue Removed Muscle -Post Debridement (cm) - Length 5.1 -Post Debridement (cm) - Width 4 -Post Debridement (cm) - Depth 0.4 -Total Square (Post) (cm) 20.4 -Area of Debridement (cm) - Length 5.1 -Area of Debridement (cm) - Width 4 -Total Square (Area) (cm) 20.4 -Tunneling No -Undermining/Tunneling No -Circular Undermining No -Wound/Ulcer Outcome Not Healed -Ulcer Cleansing Rinsed/ Irrigated with Saline -Foul Odor after Cleansing No -Bioengineered Tissue No -Bleeding Controlled with Pressure -Treatment Response Procedure Tolerated Well -Offloading Yes -Type of Offloading Surgical Shoe -Debridement - Muscle / Fascia, 1st Yes 20sq cm -Debridement, Muscle/Fascia, ea addt'l 1 20sq cm or part thereof #1 Sacral Cluster -Time -Correct Patient -Correct Side, Site, Position -Correct Procedure -Procedure Performed -Type of Procedure -Clinical Debridement -Tissue Removed -Post Debridement (cm) - Length -Post Debridement (cm) - Width -Post Debridement (cm) - Depth -Total Square (Post) (cm) -Area of Debridement (cm) - Length -Area of Debridement (cm) - Width -Total Square (Area) (cm) -Tunneling -Undermining/Tunneling -Circular Undermining -Wound/Ulcer Outcome -Ulcer Cleansing -Foul Odor after Cleansing -Bioengineered Tissue -Bleeding Controlled with -Surgifoam (3 1/8 x 5) Large -Treatment Response -Offloading -Debridement - Bone, 1st 20sq cm Pain Scale: 0-10 Numeric Is Patient Pain Free? Yes WC - Nurse 3 - General Ulcer D/C NN Start: 08/21/25 11:31 Freq: Status: Active Protocol: Activity Type Activity Date Activity User E-sign Co-sign Detail Recorded Client Recorded Date Recorded By Document 08/21/25 12:05 CP [id number] 08/21/25 12:06 CP Document 08/28/25 11:30 TS [id number] 08/28/25 11:40 TS Document 09/02/25 11:01 JF [id number] 09/02/25 11:02 JF 08/21/25 08/28/25 09/02/25 12:05 11:30 11:01 [facility] Center Nurse 3 #2 L Heel -Ulcer Cleansing Rinsed/ Rinsed/ Irrigated with Irrigated with Saline Saline -Primary Dressing Applied AMD Dressing 4x4 -Other Dressing dakins moist abd and kerlix gauze -Primary Dressing Covered/Secured with Dry Gauze & Secured with Roll Gauze, Tape Secured with Tape -AMD Dressing 4x4 2 #1 Sacral Cluster -Ulcer Cleansing Rinsed/ Irrigated with Saline -Foul Odor after Cleansing No -Primary Dressing Applied AMD Dressing 4x4 -Other Dressing slightly moistened gaze to sacrum-stock used. top with abd pad. -AMD Dressing 4x4 2 LLE -Lotion applied to leg before No compression wrap -Tubular Bandage Single Layer Single Layer -Size of Tubigrip Used Size E Size E -Size E ($) 1 1 Pain Scale: 0-10 Numeric Is Patient Pain Free? Yes Yes Yes WC - Visit Discharge Discharge Condition Stable Stable Stable Ambulatory Status Wheelchair Wheelchair Ambulatory, Wheelchair Transportation Private Auto Private Auto Private Auto Accompanied by Medication Reconcilliation completed & No No provided to patient/care provider Clinical Summary of Care Provided Yes Yes No Facility Type Home Health Orders Sent Yes Additional Wound Wound Grade/Stage: Stage II Tissue Removed: Macerated tissue and fibrin Assessment/Plan Assessment/Plan (1) Non-pressure chronic ulcer of other part of left foot with fat layer exposed: CODE(S): L97.522 - Non-pressure chronic ulcer of other part of left foot with fat layer exposed PLAN: Patient was examined and evaluated. All findings were discussed with the patient. All questions were answered to the patient's satisfaction. Excisional debridement down to including subcutaneous tissue, fascia and muscle with a number 5 mm dermal curette to the full-thickness wound to the left heel. Predebridement measurement was 5.0 x 3.8 x 0.2 cm. Postdebridement measurement is 5.1 x 4.0 x 0.4 cm. The left heel was wiped clean and patted dry. Hydrofera Blue followed by dry sterile dressing compression wrap was donned. I educated the patient and his regarding how to change the Hydrofera Blue. I educated that the blue part of the dressing is a indicator and once it starts to turn white she is to change it to a new pad which she is understanding of. I educated her to continue to change the outer dressing daily to monitor the Hydrofera Blue color change which she was understanding of. Follow-up at the wound care center with Dr. Casas in 2 week. (2) Chronic painful diabetic polyneuropathy: CODE(S): E11.42 - Type 2 diabetes mellitus with diabetic polyneuropathy
--- NOTE | 2025-09-05 09:16 | WC ---
PHOTO-LEFT HEEL 09/04/25
[2025-09-09 10:22] VITALS: BP 119/63; PULSE 79; RESP 16; TEMP 35.8
--- NOTE | 2025-09-09 11:21 | PCM.WC.PN ---
History of Present Illness Date of Service: 09/09/25 Chief Complaint: Follow-up on buttocks right and left heel wounds that have been going on for months. History of Wound: Chief Complaint: Follow-up on buttocks right and left heel wounds that have been going on for months. 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 He has not walked in several years. He is able to stand up to perform transfers, but does not move his ankle joints. He lays on his chair most of the day. And has developed a sacral wound that he has been following at the wound care center for as well as a left calcaneal wound in the setting of a recent hospitalization this past year, both of which he has been following here at the wound center with various advanced practice providers. Wound culture of left heel ulcer from 08/08/24 positive for MDRO Pseudomonas aeruginosa. Referral to infectious disease for treatment s/p antibiotic regimen. MRI of Pelvis 08/16/24 - Sacral decubitus ulcer with sacrococcygeal osteomyelitis. Treated by infectious disease with long-term course of IV antibiotics. Progress of Wound: The sacral ulcer with bone palpable but covered with granulation tissue and is beefy pink. There is undermining present, which is stable. The perineal ulcer (skin tear proximal to sacral ulcer) remains healed. Left medial heel appears improved with pink ulcer bed and much less non viable tissue present. He is sleeping on the low air loss mattress. 10 December 2024: Patient reports that he has not had any vascular workup for the lower extremity. He has a history of a DVT in the left lower extremity in the remote history and remains on Eliquis for anticoagulation. He reports episodic swelling in the left lower extremity that appears to be worsening the condition of the wound. He is not having any shortness of breath. He is not having any systemic signs or symptoms of infection. 17 December 2024: Doing well with wound care (VAC dressings) which started this past Tuesday. They have an appointment for ABIs and US for evaluation of the lower extremity. He has not gotten his xray of the foot yet, but is planning to get that soon (discussed). Labs obtained 14 Dec 2024 A1C 6.7 Prealb 27 Alb 3.4 Progress of Wound: 07 January 2025: Imaging reviewed. No osteomyelitis on the xray of the foot. There were no DVT on venous study. Arterial study demonstrated noncompressible vessels 2/2 to significant calcifications of the vasculature Patient has been doing well overall, however. Tolerating dressing changes. 21 January 2025: Doing well overall with dressing changes except there is been an odor coming from the sacral wound after the VAC changes, his would like us to look today. Patient has seen Dr. Farooq (heart doctor) this past week on 19 January 2025 and he discontinued his amiodarone and his blood thinner (patient has been regular with rate and rhythm). He has been off the blood thinner for greater than 48 hours now. Patient also has a follow-up of his ABIs with vascular surgery on 23 January 2025 (2 days from now) To assess need for intervention for increased blood flow to the foot wound. There is another area of concern in the left forearm today that the patient and his would like me to biopsy. It has been there for several months and growing. It is a scaly/scabby lesion on the left proximal dorsal forearm. Biopsy results (from biopsy on 07 January 2025) of the heel wound did not demonstrate any signs of malignancy. 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 This was discussed with the patient and his . Patient doing well overall and is tolerating the TheraSkin applications to the heel. Wound VAC dressing changes are going well as well 18 Feb 2025: Doing well overall. Tolerating theraskin. On the scheduled for excision of the SSC of the left forearm next week. 27 Feb 2025: Tolerating TheraSkin. No fevers chills. All questions answered about once his excision procedure for left forearm squamous cell carcinoma. Patient has been seeing his oncologist and has been getting infusions to increase his white blood cell counts and promote healing. 04 Mar 2025: Reviewed pathology with the patient and his at today's visit from the left forearm squamous cell carcinoma excision. It was negative for malignancy, margins were free from carcinoma. Patient tolerated the procedure well and is feeling well. No pain. No numbness in the forearm. No drainage or fevers chills. Patient here for the foot wound and the sacral wound is well. Reports excellent VAC changes and tolerance of the TheraSkin. 14 Mar 2025: Doing well overall. No appointment this past Tuesday secondary to and TheraSkin fell off from the heal on its own yesterday. There is notes there is scan ordered for today and it will be replaced on this coming Tuesday. 18 March 2025: Doing well overall. No significant change since last appoint. Endorses good dressing changes 25 March 2025: Doing well overall. No big changes. Tolerating TheraSkin treatments and VAC changes. 22 March 2025: Doing well overall. Tolerating TheraSkin 08 April 2025: Tolerating TheraSkin. No fevers chills or drainage. Reports improvement in the size of the sacral wound and persistent heel wound 22 April 2025: The patient is an 84-year-old male presenting with wound and osteomyelitis of the left heal and associated need for wound care. The osteomyelitis was identified through a culture that grew bacteria, indicating an infection in the bone. The patient has been on antibiotics for infection management, with four days remaining in the current course. Patient has been on amoxicillin and linezolid per infectious disease. He will have an appointment with them later this week. The patient has an open wound with granulation tissue, which is being monitored for healing progress. There is no exposed bone currently felt, suggesting some improvement in the wound condition. The wound care plan includes the potential use of Integra and a skin graft once the infection is controlled. Attestation: Documentation on this patient encounter was supported using ambient scribe technology/ voice AI technology. The patient consented to recording for the purpose of documenting the encounter. Provider reviewed content of the generated note prior to signature. 06 MAY 2025: The patient is an 84-year-old male presenting with chronic wounds on the left heel and sacrum. The left heel wound measures 4.5 cm by 2.6 cm and has no exposed bone, only exposed plantar fascia. The sacral wound is a stage 3 ulcer measuring 2 cm by 1.5 cm, also with no exposed bone. The patient reports that the wounds are healing, with home health nurses noting significant improvement over time. The patient has been receiving infusions, which may have contributed to the healing process. The patient has been advised against continued antibiotic use by the infectious disease physician due to potential risks outweighing benefits. The patient also experiences neuropathy, which is exacerbated by back issues, causing significant discomfort in the leg. The patient is considering steroid injections for back pain, although aware of potential impacts on wound healing (which was discussed at the visit today). The patient has a history of skin cancer diagnosed earlier this year, with surgery performed in February. ros: - Integumentary: Reports healing wounds on left heel and sacrum - Neurological: Reports neuropathy and leg discomfort due to back issues Attestation: Documentation on this patient encounter was supported using ambient scribe technology/ voice AI technology. The patient consented to recording for the purpose of documenting the encounter. Provider reviewed content of the generated note prior to signature. 27 May 2025: Doing well overall. Reports that the heal wound seems smaller. 10 June 2025: Discussed the extensive undermining of the sacral wound. There is no exposed bone but discussed MRI and nutrition labs in anticipation for potential surgery as the patient is more willing to potentially go along with this plan as we are seeing limited improvement. As for the foot wound, patient continues the Deirdre dressing changes which seem to be helping. No exposed bone. Wound is smaller 26 Jun 2025: Doing well overall. Discussed labs (A1c of 8, Albumin 3.6, Platelets 143, and Hgb 11.9) Patient is not interested in surgery at this point as he does not want to be in the hospital. He is worried also that he will pivot and shear any skin grafting that is done on the foot as he uses this region to pivot. 08 July 2025: Discussed with the patient and his the results of the MRI (no read from the radiologist yet). Per my read I do see evidence that the sacral/coccygeal region was eroded at some point secondary to osteomyelitis. I discussed with them potential implications, and how there is no current the exposed bone and this may be from previous osteomyelitis which may or may not be contributing to the current state of the wound. 29 July 2025: Recently went to the ED 2/2 concern from home health about the left calf wound. He was not admitted and was placed on oral antibiotics. They went to [facility] for evaluation of a pressure offloading boot/splint. This was unsuccessful 12 August 2025: Patient is seeing Dr. Casas for the heel and he is assuming care of the heel wound. Mr. Napoles has agreed to go to the operating room with Dr. Casas. Will defer care to Dr. Casas for that he will. Some concern for infection from home health of the sacral wound. Here to examine it today. The patient is are having issues with the VAC holding suction and therefore there is some concern for biofilm buildup 02 Sep 2025: Working well with Dr. Casas on his heel wound and is very happy with the care he is receiving. From a sacral wound standpoint, he has a persistent sacral wound that is being treated with 3 times per week VAC changes. CURRENT ENCOUNTER, 09 Sep 2025: Patient has been following with Dr. Pedersen and the cultures from the sacrum have been addressed with 40 days of Augmentin (treatment for his osteomyelitis). Patient and his are still not interested in any flap reconstruction as they are do not think he can tolerate pressure offloading (reports that he has to sit on). Objective Data Objective Data Vital Signs: Vital Signs Temp Pulse Resp BP O2 Del Method 96.5 F L 79 16 119/63 Room Air 09/09/25 10:22 09/09/25 10:22 09/09/25 10:22 09/09/25 10:22 09/09/25 10:22 Oxygen Delivery Method Room Air Lab / Micro Data Micro: Microbiology 09/02/25 10:50 Bone - Sacral Bone Gram Stain - Final 09/02/25 10:50 Bone - Sacral Bone Wound Culture - Final Staphylococcus epidermidis Strep anginosus Streptococcus mitis/ oralis Corynebacterium striatum 09/02/25 10:50 Bone - Sacral Bone Anaerobic Culture - Final Anaerobic cocci 08/28/25 11:20 Wound - Heel, Left Gram Stain - Final 08/28/25 11:20 Wound - Heel, Left Wound Culture - Final Corynebacterium striatum 08/28/25 11:20 Wound - Heel, Left Anaerobic Culture - Final No anaerobic bacteria isolated. Charges/Coding Procedures Integumentary [id number]: [id number] Ginette subq tissue 20 sq cm/< Physical Exam Narrative Sacral wound Stage 4 Wound is 2 x 2 cm and 2 cm deep and undermines approximately about 3 cm circumferential There was no exposed bone at the base of the wound today and there was healthy granulation tissue No cardinal signs of inflammation (no swelling, redness, warmth, or tenderness to palpation). No surrounding induration or fluid collections Skin Skin Narrative: Open wounds on buttocks clean well marcated Wound Narrative: Stage II Debridement Note Debridement Note Wound debrided: Sacral wound Laterality: Not Applicable Wound Grade/Stage: Stage IV Type of Debridement: Excisional debridement Anesthesia Used: 4% Lidocaine Solution Depth: in the subcutaneous layer Percentage of wound debrided: 100 Instrument Used: 7mm curette Tissue Removed: Fibrinous exudate from the subcutaneous tissues and biofilm Severity: Fat Layer Exposed Amount of bleeding with debridement: Moderate Bleeding Controlled with: Compression and gauze Patient tolerated procedure: Patient tolerated procedure well Post-Debridement Measurements and Additional Note: Post-Debridement Measurements/Treatment - Nurse 1 - General Ulcer Assessment Start: 08/21/25 11:31 Freq: Status: Active Protocol: SHAYLAAlltuition Activity Type Activity Date Activity User E-sign Co-sign Detail Recorded Client Recorded Date Recorded By Document 08/21/25 11:31 RB [id number] 08/21/25 11:40 RB Document 08/28/25 11:04 TS [id number] 08/28/25 11:16 TS Document 09/02/25 10:21 JF [id number] 09/02/25 10:26 JF Document 09/04/25 08:51 ML [id number] 09/04/25 09:00 ML Document 09/09/25 10:22 MT [id number] 09/09/25 10:26 MT 08/21/25 08/28/25 09/02/25 11:31 11:04 10:21 - Today's Visit Information Type of service Follow-up Visit Follow-up Visit Follow-up Visit (Physician/GAME DEVELOPER (Physician/GAME DEVELOPER (Physician/GAME DEVELOPER ) ) ) Arrival Mode Wheelchair Wheelchair Ambulatory, Wheelchair Transfer Assistance Manual Accompanied by Patient Identification Verified (Name & Yes Yes Yes ) Patient Requires Transmission-Based No No No Precautions Safety Precautions Fall Prevention Vital Signs Temperature (97.8 F-99.1 F) 96.1 F L 96.5 F L 96.3 F L Temperature Source Temporal Temporal Temporal Pulse Rate (60-100) 72 86 82 Pulse Location Monitor Monitor Monitor Respiratory Rate (12-18) 18 17 16 Respiratory rate source Observation Observation Observation Oxygen Delivery Method Room Air Room Air Blood Pressure (90/60-120/80) 107/67 118/67 134/76 H Blood Pressure Mean (mm Hg) 80 84 95 Source Monitor Manual Monitor Position Sitting Semi-Fowlers Blood Pressure Location Left Arm Right Arm Left Arm History Since Last Visit- (Skip if this is Patient's initial visit) Have you changed medications since your No No Yes last visit? Any new allergies or adverse reactions No No No Had a fall/change in ADL's that may No No No increase risk of falls Signs or symptoms of abuse and/or No No No neglect since last visit Have you been in the hospital since your No No No last visit? Has dressing in place as prescribed Yes Yes Yes Has compression in place as prescribed Yes N/A N/A Has offloadiing in place as prescribed N/A N/A Yes Experienced any changes in pain level or No No management Left Footwear Surgical Shoe Regular Shoe with pressure relief insole Right Footwear Regular Shoe Regular Shoe Pain Scale: 0-10 Numeric Is Patient Pain Free? Yes Yes Yes 09/04/25 09/09/25 08:51 10:22 WC - Today's Visit Information Type of service Initial Visit Follow-up Visit (Physician/GAME DEVELOPER ) Arrival Mode Wheelchair Wheelchair Transfer Assistance None Accompanied by Patient Identification Verified (Name & Yes Yes ) Patient Requires Transmission-Based No No Precautions Safety Precautions Fall Prevention Vital Signs Temperature (97.8 F-99.1 F) 96.8 F L 96.5 F L Temperature Source Temporal Temporal Pulse Rate (60-100) 80 79 Pulse Location Monitor Monitor Respiratory Rate (12-18) 15 16 Respiratory rate source Monitor Observation Oxygen Delivery Method Room Air Blood Pressure (90/60-120/80) 121/65 H 119/63 Blood Pressure Mean (mm Hg) 83 81 Source Monitor Monitor Position Sitting Sitting Blood Pressure Location Right Arm Right Arm History Since Last Visit- (Skip if this is Patient's initial visit) Have you changed medications since your No No last visit? Any new allergies or adverse reactions No No Had a fall/change in ADL's that may No No increase risk of falls Signs or symptoms of abuse and/or No No neglect since last visit Have you been in the hospital since your No No last visit? Has dressing in place as prescribed Yes Yes Has compression in place as prescribed Yes N/A Has offloadiing in place as prescribed N/A N/A Experienced any changes in pain level or No No management Left Footwear Surgical Shoe with pressure relief insole Right Footwear Regular Shoe Pain Scale: 0-10 Numeric Is Patient Pain Free? Yes Yes - Nurse 1 - General Ulcer Measurement Start: 08/21/25 11:31 Freq: Status: Active Protocol: Activity Type Activity Date Activity User E-sign Co-sign Detail Recorded Client Recorded Date Recorded By Document 08/21/25 11:31 RB [id number] 08/21/25 11:40 RB Document 08/28/25 11:04 TS [id number] 08/28/25 11:16 TS Document 09/02/25 10:21 JF [id number] 09/02/25 10:26 JF Document 09/04/25 08:51 ML [id number] 09/04/25 09:00 ML Document 09/09/25 10:22 MT [id number] 09/09/25 10:26 MT 08/21/25 08/28/25 09/02/25 11:31 11:04 10:21 Wound Center Nurse 1 #2 L Heel -Combined with other wound No No -Current Size (cm) - Length 4.5 4.5 -Current Size (cm) - Width 4 5 -Current Size (cm) - Depth 0.3 0.3 -Total Square Cm 18.0 22.5 -Date of Last Picture (Recall this 08/21/25 08/28/25 field) -Photo Taken Yes Yes -Tunneling No No -Undermining/Tunneling No No -Circular Undermining No No -Exudate Amt Large Large -Exudate Type Serosanguineous Serosanguineous -Wound Margin Distinct, Distinct, Outline Outline Attached Attached -Granulation Amt Large (67-100%) Medium (34-66%) -Granulation Quality [place] -Slough/Fibrin Yes Yes -Necrosis Amt Medium (34-66%) Medium (34-66%) -Necrotic Tissue Type Adherent Slough Eschar -Structure Exposed N/A None/Limited to Skin Breakdown -Texture (Andreea-wound Skin Appearance) Assessed Assessed -Moisture (Andreea-wound Skin Appearance) Assessed, Assessed Maceration -Color (Andreea-wound Skin Appearance) Assessed Assessed -Temperature (Andreea-wound Skin No Abnormality No Abnormality Appearance) (Pt Warm) (Pt Warm) -Tenderness on Palpation (Andreea-wound No Skin Appearance) -Ulcer Cleansing Wound Cleanser Soap and Water -Foul Odor after Cleansing No No -Anesthetic Used 5% Lidocaine 5% Lidocaine Gel Gel #1 Sacral Cluster -Combined with other wound No -Current Size (cm) - Length 3 -Current Size (cm) - Width 1 -Current Size (cm) - Depth 1.6 -Total Square Cm 3 -Photo Taken Yes -Epithelialization None Present -Tunneling No -Tunneling Position (O'clock) -Tunneling Distance (cm) -Undermining/Tunneling Yes -Undermining/Tunneling Starts (O'clock 7 ) -Undermining/Tunneling Ends (O'clock) 3 -Maximum Distance (cm) 3.1 -Circular Undermining No -Exudate Amt Medium -Exudate Type Serosanguineous -Wound Margin Flat & Intact -Granulation Amt Medium (34-66%) -Granulation Quality [place] -Slough/Fibrin Yes -Necrosis Amt Medium (34-66%) -Necrotic Tissue Type Adherent Slough -Structure Exposed N/A -Texture (Andreea-wound Skin Appearance) Assessed -Moisture (Andreea-wound Skin Appearance) No Abnormality, Maceration -Color (Andreea-wound Skin Appearance) Assessed -Temperature (Andreea-wound Skin No Abnormality Appearance) (Pt Warm) -Tenderness on Palpation (Andreea-wound No Skin Appearance) -Ulcer Cleansing Soap and Water -Foul Odor after Cleansing No -Anesthetic Used 5% Lidocaine Gel Lower Limb Edema Present Yes NA Left Calf (cm) 37.5 Point of measurement (cm from the medial 32.5 instep) Left Ankle (cm) 24 Point of Measurement (cm from the medial 25 instep) 09/04/25 09/09/25 08:51 10:22 Wound Center Nurse 1 #2 L Heel -Combined with other wound -Current Size (cm) - Length 5.5 -Current Size (cm) - Width 4.5 1 -Current Size (cm) - Depth 0.3 -Total Square Cm 24.75 -Date of Last Picture (Recall this field) -Photo Taken -Tunneling -Undermining/Tunneling -Circular Undermining -Exudate Amt Large -Exudate Type Serosanguineous -Wound Margin -Granulation Amt -Granulation Quality -Slough/Fibrin Yes -Necrosis Amt Medium (34-66%) -Necrotic Tissue Type Adherent Slough -Structure Exposed -Texture (Andreea-wound Skin Appearance) Assessed -Moisture (Andreea-wound Skin Appearance) Assessed -Color (Andreea-wound Skin Appearance) Assessed -Temperature (Andreea-wound Skin No Abnormality Appearance) (Pt Warm) -Tenderness on Palpation (Andreea-wound No Skin Appearance) -Ulcer Cleansing Soap and Water -Foul Odor after Cleansing No -Anesthetic Used 5% Lidocaine Gel #1 Sacral Cluster -Combined with other wound No -Current Size (cm) - Length 3 -Current Size (cm) - Width 1.8 -Current Size (cm) - Depth -Total Square Cm 5.4 -Photo Taken No -Epithelialization -Tunneling Yes -Tunneling Position (O'clock) 12 -Tunneling Distance (cm) 4.5 -Undermining/Tunneling Yes -Undermining/Tunneling Starts (O'clock 1 ) -Undermining/Tunneling Ends (O'clock) 11 -Maximum Distance (cm) 2.9 -Circular Undermining Yes -Exudate Amt Medium -Exudate Type Serosanguineous -Wound Margin Thickened & Rolled Under -Granulation Amt Medium (34-66%) -Granulation Quality [place],Red -Slough/Fibrin -Necrosis Amt Medium (34-66%) -Necrotic Tissue Type -Structure Exposed None/Limited to Skin Breakdown -Texture (Andreea-wound Skin Appearance) Assessed -Moisture (Andreea-wound Skin Appearance) Assessed -Color (Andreea-wound Skin Appearance) Assessed -Temperature (Andreea-wound Skin No Abnormality Appearance) (Pt Warm) -Tenderness on Palpation (Andreea-wound Skin Appearance) -Ulcer Cleansing Soap and Water -Foul Odor after Cleansing No -Anesthetic Used 5% Lidocaine Gel Lower Limb Edema Present Left Calf (cm) Point of measurement (cm from the medial instep) Left Ankle (cm) Point of Measurement (cm from the medial instep) WC - Nurse 2 - General Ulcer CM Notes Start: 08/21/25 11:31 Freq: Status: Active Protocol: Activity Type Activity Date Activity User E-sign Co-sign Detail Recorded Client Recorded Date Recorded By Document 08/21/25 11:44 [id number] 08/21/25 11:46 Document 08/28/25 11:23 [id number] 08/28/25 11:24 Document 09/02/25 10:38 [id number] 09/02/25 11:01 Document 09/04/25 09:08 JF [id number] 09/04/25 09:11 Document 09/09/25 10:46 [id number] 09/09/25 10:53 08/21/25 08/28/2509/02/25 11:44 11:23 10:38 Wound Center Nurse 2 #2 L Heel -Time 11:44 11:24 -Correct Patient Yes Yes -Correct Side, Site, Position Yes Yes -Correct Procedure Yes Yes -Procedure Performed Yes Yes -Type of Procedure Debridement Debridement -Clinical Debridement Muscle / Fascia Muscle / Fascia -Tissue Removed Muscle Muscle -Post Debridement (cm) - Length 4.6 5 -Post Debridement (cm) - Width 5.5 4.1 -Post Debridement (cm) - Depth 0.3 0.2 -Total Square (Post) (cm) 25.30 20.5 -Area of Debridement (cm) - Length 4.6 5 -Area of Debridement (cm) - Width 5.5 4.1 -Total Square (Area) (cm) 25.30 20.5 -Tunneling No No -Undermining/Tunneling No No -Circular Undermining No No -Wound/Ulcer Outcome Not Healed Not Healed -Ulcer Cleansing Rinsed/ Rinsed/ Irrigated with Irrigated with Saline Saline -Foul Odor after Cleansing No No -Bioengineered Tissue No No -Bleeding Controlled with Pressure Pressure -Treatment Response Procedure Procedure Tolerated Well Tolerated Well -Offloading Yes Yes -Type of Offloading Surgical Shoe Surgical Shoe -Debridement - Muscle / Fascia, 1st Yes Yes 20sq cm -Debridement, Muscle/Fascia, ea addt'l 1 1 20sq cm or part thereof #1 Sacral Cluster -Time 10:39 -Correct Patient Yes -Correct Side, Site, Position Yes -Correct Procedure Yes -Procedure Performed Yes -Type of Procedure Debridement -Clinical Debridement Bone -Tissue Removed Non-viable tissue -Post Debridement (cm) - Length 3.1 -Post Debridement (cm) - Width 1.1 -Post Debridement (cm) - Depth 1.6 -Total Square (Post) (cm) 3.41 -Area of Debridement (cm) - Length 3.1 -Area of Debridement (cm) - Width 1.1 -Total Square (Area) (cm) 3.41 -Tunneling No -Undermining/Tunneling No -Circular Undermining No -Wound/Ulcer Outcome Not Healed -Ulcer Cleansing Rinsed/ Irrigated with Saline -Foul Odor after Cleansing No -Bioengineered Tissue No -Bleeding Controlled with Pressure, Surgifoam 3 8 x 5 (lg) -Surgifoam (3 18 x 5) Large 1 -Treatment Response Procedure Tolerated Well -Offloading No -Pressure Reduction -Debridement - Subq, 1st 20sq cm -Debridement - Bone, 1st 20sq cm Yes Pain Scale: 0-10 Numeric Is Patient Pain Free? Yes Yes Yes 09/04/25 09/09/25 09:08 10:46 Wound Center Nurse 2 #2 L Heel -Time 09:09 -Correct Patient Yes No -Correct Side, Site, Position Yes No -Correct Procedure Yes No -Procedure Performed Yes No -Type of Procedure Debridement -Clinical Debridement Muscle / Fascia -Tissue Removed Muscle -Post Debridement (cm) - Length 5.1 -Post Debridement (cm) - Width 4 -Post Debridement (cm) - Depth 0.4 -Total Square (Post) (cm) 20.4 -Area of Debridement (cm) - Length 5.1 -Area of Debridement (cm) - Width 4 -Total Square (Area) (cm) 20.4 -Tunneling No -Undermining/Tunneling No -Circular Undermining No -Wound/Ulcer Outcome Not Healed -Ulcer Cleansing Rinsed/ Irrigated with Saline -Foul Odor after Cleansing No -Bioengineered Tissue No -Bleeding Controlled with Pressure -Treatment Response Procedure Tolerated Well -Offloading Yes -Type of Offloading Surgical Shoe -Debridement - Muscle / Fascia, 1st Yes 20sq cm -Debridement, Muscle/Fascia, ea addt'l 1 20sq cm or part thereof #1 Sacral Cluster -Time 10:47 -Correct Patient Yes -Correct Side, Site, Position Yes -Correct Procedure Yes -Procedure Performed Yes -Type of Procedure Debridement -Clinical Debridement Subcutaneous -Tissue Removed Subcutaneous -Post Debridement (cm) - Length 2 -Post Debridement (cm) - Width 2 -Post Debridement (cm) - Depth 2.5 -Total Square (Post) (cm) 4 -Area of Debridement (cm) - Length 2 -Area of Debridement (cm) - Width 2 -Total Square (Area) (cm) 4 -Tunneling No -Undermining/Tunneling No -Circular Undermining Yes -Wound/Ulcer Outcome -Ulcer Cleansing Rinsed/ Irrigated with Saline -Foul Odor after Cleansing No -Bioengineered Tissue No -Bleeding Controlled with Pressure -Surgifoam (3 8 x 5) Large -Treatment Response Procedure Tolerated Well -Offloading No -Pressure Reduction Wheelchair cushion, Specialty bed -Debridement - Subq, 1st 20sq cm Yes -Debridement - Bone, 1st 20sq cm Pain Scale: 0-10 Numeric Is Patient Pain Free? Yes Yes - Nurse 3 - General Ulcer D/C NN Start: 08/21/25 11:31 Freq: Status: Active Protocol: Activity Type Activity Date Activity User E-sign Co-sign Detail Recorded Client Recorded Date Recorded By Document 08/21/25 12:05 CP [id number] 08/21/25 12:06 CP Document 08/28/25 11:30 TS [id number] 08/28/25 11:40 TS Document 09/02/25 11:01 JF [id number] 09/02/25 11:02 JF 08/21/25 08/28/25 09/02/25 12:05 11:30 11:01 Wound Care Center Nurse 3 #2 L Heel -Ulcer Cleansing Rinsed/ Rinsed/ Irrigated with Irrigated with Saline Saline -Primary Dressing Applied AMD Dressing 4x4 -Other Dressing dakins moist abd and kerlix gauze -Primary Dressing Covered/Secured with Dry Gauze & Secured with Roll Gauze, Tape Secured with Tape -AMD Dressing 4x4 2 #1 Sacral Cluster -Ulcer Cleansing Rinsed/ Irrigated with Saline -Foul Odor after Cleansing No -Primary Dressing Applied AMD Dressing 4x4 -Other Dressing slightly moistened gaze to sacrum-stock used. top with abd pad. -AMD Dressing 4x4 2 LLE -Lotion applied to leg before No compression wrap -Tubular Bandage Single Layer Single Layer -Size of Tubigrip Used Size E Size E -Size E ($) 1 1 Pain Scale: 0-10 Numeric Is Patient Pain Free? Yes Yes Yes - Visit Discharge Discharge Condition Stable Stable Stable Ambulatory Status Wheelchair Wheelchair Ambulatory, Wheelchair Transportation Private Auto Private Auto Private Auto Accompanied by Medication Reconcilliation completed & No No provided to patient/care provider Clinical Summary of Care Provided Yes Yes No Facility Type Home Health Orders Sent Yes Assessment/Plan Assessment/Plan (1) Stage 4 decubitus ulcer: CODE(S): L89.94 - Pressure ulcer of unspecified site, stage 4 QUALIFIERS: Pressure injury location: sacral region Qualified Code(s): L89.154 - Pressure ulcer of sacral region, stage 4 PLAN: No osteomyelitis seen on the bone biopsy but cultures grew from the bone Following with ID for long-term antibiotics for the positive bone cultures Continue antibiotics per Dr. Casas for the heel wound, plastics will follow-up on culture for the sacral wound and refer to infectious disease. No exposed bone at the base of the wound today We will place the wound VAC as the osteomyelitis appears to be debrided and it is being adequately treated at this point. Follow-up with me in 3 weeks
== END 2025-09-15 23:59 | disposition home or self-care (01) ==
LOC: WC 10:00
PROVIDERS: PCP Family Medicine; Referring Provider Family Medicine; Visit Provider Surgery Plastic and Reconstructive Surgery
DX: E11.621 Type 2 diabetes mellitus with foot ulcer (principal); L89.154 Pressure ulcer of sacral region, stage 4; L97.522 Non-pressure chronic ulcer of other part of left foot with fat layer exposed; E11.42 Type 2 diabetes mellitus with diabetic polyneuropathy; Z86.718 Personal history of other venous thrombosis and embolism; Z79.01 Long term (current) use of anticoagulants
CPT/HCPCS: 11042; 11043; 11044; 11046; 87070; 87075; 87077; 87176; 87186; 87205; 88305; 88311

== ENCOUNTER 2025-10-02 12:30 | Outpatient (RCR) | payer MEDICARE, SELFPAY ==
[2025-09-18 09:54] VITALS: BP 123/49; PULSE 83; RESP 17; TEMP 35.8
--- NOTE | 2025-09-18 11:11 | PCM.WC.PN ---
History of Present Illness Date of Service: 09/18/25 Chief Complaint: Follow-up on buttocks right and left heel wounds that have been going on for months. History of Wound: Chief Complaint: Follow-up on buttocks right and left heel wounds that have been going on for months. 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 He has not walked in several years. He is able to stand up to perform transfers, but does not move his ankle joints. He lays on his chair most of the day. And has developed a sacral wound that he has been following at the wound care center for as well as a left calcaneal wound in the setting of a recent hospitalization this past year, both of which he has been following here at the wound center with various advanced practice providers. Wound culture of left heel ulcer from 08/08/24 positive for MDRO Pseudomonas aeruginosa. Referral to infectious disease for treatment s/p antibiotic regimen. MRI of Pelvis 08/16/24 - Sacral decubitus ulcer with sacrococcygeal osteomyelitis. Treated by infectious disease with long-term course of IV antibiotics. Progress of Wound: The sacral ulcer with bone palpable but covered with granulation tissue and is beefy pink. There is undermining present, which is stable. The perineal ulcer (skin tear proximal to sacral ulcer) remains healed. Left medial heel appears improved with pink ulcer bed and much less non viable tissue present. He is sleeping on the low air loss mattress. 10 December 2024: Patient reports that he has not had any vascular workup for the lower extremity. He has a history of a DVT in the left lower extremity in the remote history and remains on Eliquis for anticoagulation. He reports episodic swelling in the left lower extremity that appears to be worsening the condition of the wound. He is not having any shortness of breath. He is not having any systemic signs or symptoms of infection. 17 December 2024: Doing well with wound care (VAC dressings) which started this past Tuesday. They have an appointment for ABIs and US for evaluation of the lower extremity. He has not gotten his xray of the foot yet, but is planning to get that soon (discussed). Labs obtained 14 Dec 2024 A1C 6.7 Prealb 27 Alb 3.4 Progress of Wound: Stable full-thickness wound left heel Subjective Subjective Patient is a 85-year-old diabetic male presenting to the wound care center today for follow-up evaluation of full-thickness wound to left heel. Patient has been compliant with dressing changes using the Hydrofera Blue. His admits to improvement to the wound. He is currently on antibiotics from infectious disease. He is being treated by plastics for the sacral wound. He is partial weightbearing and uses a motorized scooter for assistance. He denies trauma. Denies constitutional symptoms. No other pedal complaints at this time. Objective Data Objective Data Both wounds look better but the heel looks macerated. Scheduling him for an MRI and we will go from there. We will continue the wound VAC at 150 mL of meters mercury he is tolerating it well the wound VAC had to be removed last night because it lost its suction. Vital Signs: Vital Signs Temp Pulse Resp BP O2 Del Method 96.4 F L 83 17 123/49 H Room Air 09/18/25 09:54 09/18/25 09:54 09/18/25 09:54 09/18/25 09:54 09/18/25 09:54 Oxygen Delivery Method Room Air Lab / Micro Data Attestation: I reviewed the patient's lab results. Micro: Microbiology 09/02/25 10:50 Bone - Sacral Bone Gram Stain - Final 09/02/25 10:50 Bone - Sacral Bone Wound Culture - Preliminary Staphylococcus species Gram Positive Cocci Alpha Hemolytic Streptococcus Gram positive faye 08/28/25 11:20 Wound - Heel, Left Gram Stain - Final 08/28/25 11:20 Wound - Heel, Left Wound Culture - Final Corynebacterium striatum 08/28/25 11:20 Wound - Heel, Left Anaerobic Culture - Final No anaerobic bacteria isolated. Physical Exam Narrative Vascular: DP and PT pulses are palpable to left extremity. CFT is brisk. No erythema or drainage appreciated. Skin temperature is warm to warm from proximal ankle to distal digit without focal increase appreciated. Neurological: Light touch is intact. Patient does not respond to painful stimuli. Dermatological: Full-thickness wound to the left heel measuring at 5.7 x 4.3 x 0.4 cm. Wound base is fibrogranular nature. Negative probe to bone Excisional debridement down to including subcutaneous tissue, fascia and muscle with a number 5 mm dermal curette to the full-thickness wound to the left heel. Predebridement measurement was 5.5 x 4.1 x 0.2 cm. Postdebridement measurement is 5.7 x 4.3 x 0.4 cm. Musculoskeletal: No pain to palpation to full-thickness wound to left lower extremity. No pain with calf compression. Skin Skin Narrative: Open wounds on buttocks clean well marcated Wound Narrative: Stage II Debridement Note Debridement Note Wound Grade/Stage: Stage IV Debridement Free Text: Excisional debridement down to including subcutaneous tissue, fascia and muscle with a number 5 mm dermal curette to the full-thickness wound to the left heel. Predebridement measurement was 5.5 x 4.1 x 0.2 cm. Postdebridement measurement is 5.7 x 4.3 x 0.4 cm. Post-Debridement Measurements and Additional Note: Post-Debridement Measurements/Treatment WC - Nurse 1 - General Ulcer Assessment Start: 09/18/25 09:53 Freq: Status: Active Protocol: CHEL Activity Type Activity Date Activity User E-sign Co-sign Detail Recorded Client Recorded Date Recorded By Document 09/18/25 09:54 [id number] 09/18/25 09:59 TS 09/18/25 09:54 WC - Today's Visit Information Type of service Follow-up Visit (Physician/SYSTEMS TECHNICIAN ) Arrival Mode Wheelchair Patient Identification Verified (Name & Yes ) Patient Requires Transmission-Based No Precautions Safety Precautions Fall Prevention Vital Signs Temperature (97.8 F-99.1 F) 96.4 F L Temperature Source Temporal Pulse Rate (60-100) 83 Pulse Location Monitor Respiratory Rate (12-18) 17 Respiratory rate source Observation Oxygen Delivery Method Room Air Blood Pressure (90/60-120/80) 123/49 H Blood Pressure Mean (mm Hg) 73 Source Monitor Position Sitting Blood Pressure Location Left Arm History Since Last Visit- (Skip if this is Patient's initial visit) Have you changed medications since your No last visit? Any new allergies or adverse reactions No Had a fall/change in ADL's that may No increase risk of falls Signs or symptoms of abuse and/or No neglect since last visit Have you been in the hospital since your No last visit? Has dressing in place as prescribed Yes Has compression in place as prescribed N/A Has offloadiing in place as prescribed N/A Experienced any changes in pain level or No management Left Footwear Regular Shoe Right Footwear Surgical Shoe with pressure relief insole Pain Scale: 0-10 Numeric Is Patient Pain Free? Yes WC - Nurse 1 - General Ulcer Measurement Start: 09/18/25 09:53 Freq: Status: Active Protocol: Activity Type Activity Date Activity User E-sign Co-sign Detail Recorded Client Recorded Date Recorded By Document 09/18/25 09:54 TS [id number] 09/18/25 09:59 TS 09/18/25 09:54 Wound Center Nurse 1 #2 L Heel -Combined with other wound No -Current Size (cm) - Length 5.5 -Current Size (cm) - Width 4 -Current Size (cm) - Depth 0.3 -Total Square Cm 22.0 -Date of Last Picture (Recall this 09/18/25 field) -Photo Taken Yes -Exudate Amt Medium -Exudate Type Serosanguineous -Wound Margin Distinct, Outline Attached -Granulation Amt Small (1-33%) -Granulation Quality [place],Red -Slough/Fibrin Yes -Necrosis Amt Medium (34-66%) -Necrotic Tissue Type Adherent Slough -Texture (Andreea-wound Skin Appearance) Assessed -Moisture (Andreea-wound Skin Appearance) Assessed -Color (Andreea-wound Skin Appearance) Assessed -Temperature (Andreea-wound Skin No Abnormality Appearance) (Pt Warm) -Ulcer Cleansing Soap and Water -Foul Odor after Cleansing No -Anesthetic Used 5% Lidocaine Gel Point of measurement (cm from the medial 39 instep) Point of Measurement (cm from the medial 23.5 instep) WC - Nurse 2 - General Ulcer CM Notes Start: 09/18/25 09:53 Freq: Status: Active Protocol: Activity Type Activity Date Activity User E-sign Co-sign Detail Recorded Client Recorded Date Recorded By Document 09/18/25 10:13 JF [id number] 09/18/25 10:16 09/18/25 10:13 Wound Center Nurse 2 #2 L Heel -Time 10:13 -Correct Patient Yes -Correct Side, Site, Position Yes -Correct Procedure Yes -Procedure Performed Yes -Type of Procedure Debridement -Clinical Debridement Muscle / Fascia -Tissue Removed Muscle -Post Debridement (cm) - Length 5.7 -Post Debridement (cm) - Width 4.3 -Post Debridement (cm) - Depth 0.4 -Total Square (Post) (cm) 24.51 -Area of Debridement (cm) - Length 5.7 -Area of Debridement (cm) - Width 4.3 -Total Square (Area) (cm) 24.51 -Tunneling No -Undermining/Tunneling No -Circular Undermining No -Wound/Ulcer Outcome Converted -Ulcer Cleansing Wound Cleanser -Foul Odor after Cleansing No -Bioengineered Tissue No -Bleeding Controlled with Pressure -Treatment Response Procedure Tolerated Well -Offloading Yes -Type of Offloading Surgical Shoe -Debridement - Muscle / Fascia, 1st Yes 20sq cm -Debridement, Muscle/Fascia, ea addt'l 1 20sq cm or part thereof Pain Scale: 0-10 Numeric Is Patient Pain Free? Yes - Nurse 3 - General Ulcer D/C NN Start: 09/18/25 09:53 Freq: Status: Active Protocol: Activity Type Activity Date Activity User E-sign Co-sign Detail Recorded Client Recorded Date Recorded By Document 09/18/25 10:45 [id number] 09/18/25 10:47 RB 09/18/25 10:45 Wound Care Center Nurse 3 #2 L Heel -Ulcer Cleansing Rinsed/ Irrigated with Saline -Primary Dressing Applied AMD Dressing 4x4 -Other Dressing ABD -Primary Dressing Covered/Secured with Dry Gauze & Roll Gauze, Secured with Tape -AMD Dressing 4x4 1 BLE -Tubular Bandage Single Layer -Size of Tubigrip Used Size E -Size E ($) 2 Treatment Response Procedure Tolerated Well Pain Scale: 0-10 Numeric Is Patient Pain Free? Yes - Visit Discharge Discharge Condition Stable Ambulatory Status Ambulatory Transportation Private Auto Medication Reconcilliation completed & No provided to patient/care provider Clinical Summary of Care Provided Yes Additional Wound Wound Grade/Stage: Stage II Tissue Removed: Macerated tissue and fibrin Assessment/Plan Assessment/Plan (1) Non-pressure chronic ulcer of other part of left foot with fat layer exposed: CODE(S): L97.522 - Non-pressure chronic ulcer of other part of left foot with fat layer exposed PLAN: Patient was examined and evaluated. All findings were discussed with the patient. All questions were answered to the patient's satisfaction. Excisional debridement down to including subcutaneous tissue, fascia and muscle with a number 5 mm dermal curette to the full-thickness wound to the left heel. Predebridement measurement was 5.5 x 4.1 x 0.2 cm. Postdebridement measurement is 5.7 x 4.3 x 0.4 cm. The full-thickness wounds were cleaned and patted dry. Saline moist gauze dry sterile dressing compression wrap were donned. Patient will change the dressing with Hydrofera Blue and change it when the indicator turns white. The continue to offload as discussed. They will continue antibiotics per infectious disease recommendation. Follow-up at the wound care center with Dr. Casas in 2 week. (2) Chronic painful diabetic polyneuropathy: CODE(S): E11.42 - Type 2 diabetes mellitus with diabetic polyneuropathy
--- NOTE | 2025-09-19 09:24 | WC ---
PHOTO-LEFT HEEL 09/18/25
[2025-09-30 10:24] VITALS: BP 124/75; PULSE 83; RESP 16; TEMP 36.2
--- NOTE | 2025-09-30 14:52 | PCM.WC.PN ---
History of Present Illness Date of Service: 09/30/25 Chief Complaint: Follow-up on buttocks right and left heel wounds that have been going on for months. History of Wound: Chief Complaint: Follow-up on buttocks right and left heel wounds that have been going on for months. 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 He has not walked in several years. He is able to stand up to perform transfers, but does not move his ankle joints. He lays on his chair most of the day. And has developed a sacral wound that he has been following at the wound care center for as well as a left calcaneal wound in the setting of a recent hospitalization this past year, both of which he has been following here at the wound center with various advanced practice providers. Wound culture of left heel ulcer from 08/08/24 positive for MDRO Pseudomonas aeruginosa. Referral to infectious disease for treatment s/p antibiotic regimen. MRI of Pelvis 08/16/24 - Sacral decubitus ulcer with sacrococcygeal osteomyelitis. Treated by infectious disease with long-term course of IV antibiotics. Progress of Wound: The sacral ulcer with bone palpable but covered with granulation tissue and is beefy pink. There is undermining present, which is stable. The perineal ulcer (skin tear proximal to sacral ulcer) remains healed. Left medial heel appears improved with pink ulcer bed and much less non viable tissue present. He is sleeping on the low air loss mattress. 10 December 2024: Patient reports that he has not had any vascular workup for the lower extremity. He has a history of a DVT in the left lower extremity in the remote history and remains on Eliquis for anticoagulation. He reports episodic swelling in the left lower extremity that appears to be worsening the condition of the wound. He is not having any shortness of breath. He is not having any systemic signs or symptoms of infection. 17 December 2024: Doing well with wound care (VAC dressings) which started this past Tuesday. They have an appointment for ABIs and US for evaluation of the lower extremity. He has not gotten his xray of the foot yet, but is planning to get that soon (discussed). Labs obtained 14 Dec 2024 A1C 6.7 Prealb 27 Alb 3.4 Subjective Subjective 07 January 2025: Imaging reviewed. No osteomyelitis on the xray of the foot. There were no DVT on venous study. Arterial study demonstrated noncompressible vessels 2/2 to significant calcifications of the vasculature Patient has been doing well overall, however. Tolerating dressing changes. 21 January 2025: Doing well overall with dressing changes except there is been an odor coming from the sacral wound after the VAC changes, his would like us to look today. Patient has seen Dr. Farooq (heart doctor) this past week on 19 January 2025 and he discontinued his amiodarone and his blood thinner (patient has been regular with rate and rhythm). He has been off the blood thinner for greater than 48 hours now. Patient also has a follow-up of his ABIs with vascular surgery on 23 January 2025 (2 days from now) To assess need for intervention for increased blood flow to the foot wound. There is another area of concern in the left forearm today that the patient and his would like me to biopsy. It has been there for several months and growing. It is a scaly/scabby lesion on the left proximal dorsal forearm. Biopsy results (from biopsy on 07 January 2025) of the heel wound did not demonstrate any signs of malignancy. 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 This was discussed with the patient and his . Patient doing well overall and is tolerating the TheraSkin applications to the heel. Wound VAC dressing changes are going well as well 18 Feb 2025: Doing well overall. Tolerating theraskin. On the scheduled for excision of the SSC of the left forearm next week. 27 Feb 2025: Tolerating TheraSkin. No fevers chills. All questions answered about once his excision procedure for left forearm squamous cell carcinoma. Patient has been seeing his oncologist and has been getting infusions to increase his white blood cell counts and promote healing. 04 Mar 2025: Reviewed pathology with the patient and his at today's visit from the left forearm squamous cell carcinoma excision. It was negative for malignancy, margins were free from carcinoma. Patient tolerated the procedure well and is feeling well. No pain. No numbness in the forearm. No drainage or fevers chills. Patient here for the foot wound and the sacral wound is well. Reports excellent VAC changes and tolerance of the TheraSkin. 14 Mar 2025: Doing well overall. No appointment this past Tuesday secondary to and TheraSkin fell off from the heal on its own yesterday. There is notes there is scan ordered for today and it will be replaced on this coming Tuesday. 18 March 2025: Doing well overall. No significant change since last appoint. Endorses good dressing changes 25 March 2025: Doing well overall. No big changes. Tolerating TheraSkin treatments and VAC changes. 22 March 2025: Doing well overall. Tolerating TheraSkin 08 April 2025: Tolerating TheraSkin. No fevers chills or drainage. Reports improvement in the size of the sacral wound and persistent heel wound 22 April 2025: The patient is an 84-year-old male presenting with wound and osteomyelitis of the left heal and associated need for wound care. The osteomyelitis was identified through a culture that grew bacteria, indicating an infection in the bone. The patient has been on antibiotics for infection management, with four days remaining in the current course. Patient has been on amoxicillin and linezolid per infectious disease. He will have an appointment with them later this week. The patient has an open wound with granulation tissue, which is being monitored for healing progress. There is no exposed bone currently felt, suggesting some improvement in the wound condition. The wound care plan includes the potential use of Integra and a skin graft once the infection is controlled. Attestation: Documentation on this patient encounter was supported using ambient scribe technology/ voice AI technology. The patient consented to recording for the purpose of documenting the encounter. Provider reviewed content of the generated note prior to signature. 06 MAY 2025: The patient is an 84-year-old male presenting with chronic wounds on the left heel and sacrum. The left heel wound measures 4.5 cm by 2.6 cm and has no exposed bone, only exposed plantar fascia. The sacral wound is a stage 3 ulcer measuring 2 cm by 1.5 cm, also with no exposed bone. The patient reports that the wounds are healing, with home health nurses noting significant improvement over time. The patient has been receiving infusions, which may have contributed to the healing process. The patient has been advised against continued antibiotic use by the infectious disease physician due to potential risks outweighing benefits. The patient also experiences neuropathy, which is exacerbated by back issues, causing significant discomfort in the leg. The patient is considering steroid injections for back pain, although aware of potential impacts on wound healing (which was discussed at the visit today). The patient has a history of skin cancer diagnosed earlier this year, with surgery performed in February. ros: - Integumentary: Reports healing wounds on left heel and sacrum - Neurological: Reports neuropathy and leg discomfort due to back issues Attestation: Documentation on this patient encounter was supported using ambient scribe technology/ voice AI technology. The patient consented to recording for the purpose of documenting the encounter. Provider reviewed content of the generated note prior to signature. 27 May 2025: Doing well overall. Reports that the heal wound seems smaller. 10 June 2025: Discussed the extensive undermining of the sacral wound. There is no exposed bone but discussed MRI and nutrition labs in anticipation for potential surgery as the patient is more willing to potentially go along with this plan as we are seeing limited improvement. As for the foot wound, patient continues the Deirdre dressing changes which seem to be helping. No exposed bone. Wound is smaller 26 Jun 2025: Doing well overall. Discussed labs (A1c of 8, Albumin 3.6, Platelets 143, and Hgb 11.9) Patient is not interested in surgery at this point as he does not want to be in the hospital. He is worried also that he will pivot and shear any skin grafting that is done on the foot as he uses this region to pivot. 08 July 2025: Discussed with the patient and his the results of the MRI (no read from the radiologist yet). Per my read I do see evidence that the sacral/coccygeal region was eroded at some point secondary to osteomyelitis. I discussed with them potential implications, and how there is no current the exposed bone and this may be from previous osteomyelitis which may or may not be contributing to the current state of the wound. 29 July 2025: Recently went to the ED 2/2 concern from home health about the left calf wound. He was not admitted and was placed on oral antibiotics. They went to [facility] for evaluation of a pressure offloading boot/splint. This was unsuccessful 12 August 2025: Patient is seeing Dr. Casas for the heel and he is assuming care of the heel wound. Mr. Napoles has agreed to go to the operating room with Dr. Casas. Will defer care to Dr. Casas for that he will. Some concern for infection from home health of the sacral wound. Here to examine it today. The patient is are having issues with the VAC holding suction and therefore there is some concern for biofilm buildup CURRENT ENCOUNTER, 30 September 2025: Patient doing well overall from a wound care standpoint and has been following up with Dr. Casas for the heel wound and the heel wound is improving. Patient denies any fevers chills or problems at home. Has been treated with antibiotics by the infectious disease team for treatment for the sacral osteomyelitis. Continues 3 times per week VAC changes for the sacral wound. Objective Data Objective Data Vital Signs: Vital Signs Temp Pulse Resp BP O2 Del Method 97.1 F L 83 16 124/75 H Room Air 09/30/25 10:24 09/30/25 10:24 09/30/25 10:24 09/30/25 10:24 09/30/25 10:24 Oxygen Delivery Method Room Air Charges/Coding Procedures Integumentary [id number]: 09173 Ginette subq tissue 20 sq cm/< Physical Exam Narrative Sacral wound Stage 4 Wound is 2 x 2 cm and 2 cm deep and undermines approximately about 2 cm circumferential There was no exposed bone at the base of the wound today and there was healthy granulation tissue (and the wound overall seems to be granulating better since treatment for the osteomyelitis). No cardinal signs of inflammation (no swelling, redness, warmth, or tenderness to palpation). No surrounding induration or fluid collections. No drainage today Skin Skin Narrative: Open wounds on buttocks clean well marcated Wound Narrative: Stage II Debridement Note Debridement Note Wound debrided: Sacral ulcer Laterality: Not Applicable Wound Grade/Stage: Stage III Type of Debridement: Excisional debridement Anesthesia Used: 4% Lidocaine Solution Depth: in the subcutaneous layer Percentage of wound debrided: 100 Instrument Used: 7mm curette Tissue Removed: Fibrinous exudate Severity: Limited To Skin Breakdown Amount of bleeding with debridement: Moderate Bleeding Controlled with: Compression and gauze Patient tolerated procedure: Patient tolerated procedure well Post-Debridement Measurements and Additional Note: Post-Debridement Measurements/Treatment - Nurse 1 - General Ulcer Assessment Start: 09/18/25 09:53 Freq: Status: Active Protocol: CHEL Activity Type Activity Date Activity User E-sign Co-sign Detail Recorded Client Recorded Date Recorded By Document 09/18/25 09:54 TS [id number] 09/18/25 09:59 TS Document 09/30/25 10:24 TS [id number] 09/30/25 10:32 TS 09/18/25 09/30/25 09:54 10:24 - Today's Visit Information Type of service Follow-up Visit Follow-up Visit (Physician/INCINERATOR ATTENDANT (Physician/INCINERATOR ATTENDANT ) ) Arrival Mode Wheelchair Wheelchair Patient Identification Verified (Name & Yes Yes ) Patient Requires Transmission-Based No No Precautions Safety Precautions Fall Prevention Fall Prevention Vital Signs Temperature (97.8 F-99.1 F) 96.4 F L 97.1 F L Temperature Source Temporal Temporal Pulse Rate (60-100) 83 83 Pulse Location Monitor Monitor Respiratory Rate (12-18) 17 16 Respiratory rate source Observation Observation Oxygen Delivery Method Room Air Room Air Blood Pressure (90/60-120/80) 123/49 H 124/75 H Blood Pressure Mean (mm Hg) 73 91 Source Monitor Monitor Position Sitting Sitting Blood Pressure Location Left Arm Right Arm History Since Last Visit- (Skip if this is Patient's initial visit) Have you changed medications since your No No last visit? Any new allergies or adverse reactions No No Had a fall/change in ADL's that may No No increase risk of falls Signs or symptoms of abuse and/or No neglect since last visit Have you been in the hospital since your No No last visit? Has dressing in place as prescribed Yes Yes Has compression in place as prescribed N/A N/A Has offloadiing in place as prescribed N/A No Experienced any changes in pain level or No No management Left Footwear Regular Shoe Regular Shoe Right Footwear Surgical Shoe Regular Shoe with pressure relief insole Pain Scale: 0-10 Numeric Is Patient Pain Free? Yes Yes - Nurse 1 - General Ulcer Measurement Start: 09/18/25 09:53 Freq: Status: Active Protocol: Activity Type Activity Date Activity User E-sign Co-sign Detail Recorded Client Recorded Date Recorded By Document 09/18/25 09:54 [id number] 09/18/25 09:59 TS Document 09/30/25 10:24 TS [id number] 09/30/25 10:32 TS 09/18/25 09/30/25 09:54 10:24 Wound Center Nurse 1 #2 L Heel -Combined with other wound No -Current Size (cm) - Length 5.5 -Current Size (cm) - Width 4 -Current Size (cm) - Depth 0.3 -Total Square Cm 22.0 -Date of Last Picture (Recall this 09/18/25 field) -Photo Taken Yes -Exudate Amt Medium -Exudate Type Serosanguineous -Wound Margin Distinct, Outline Attached -Granulation Amt Small (1-33%) -Granulation Quality Crafton,Red -Slough/Fibrin Yes -Necrosis Amt Medium (34-66%) -Necrotic Tissue Type Adherent Slough -Texture (Andreea-wound Skin Appearance) Assessed -Moisture (Andreea-wound Skin Appearance) Assessed -Color (Andreea-wound Skin Appearance) Assessed -Temperature (Andreea-wound Skin No Abnormality Appearance) (Pt Warm) -Ulcer Cleansing Soap and Water -Foul Odor after Cleansing No -Anesthetic Used 5% Lidocaine Gel #1 Sacral Cluster -Combined with other wound No -Current Size (cm) - Length 2.8 -Current Size (cm) - Width 1 -Current Size (cm) - Depth 2.5 -Total Square Cm 2.8 -Date of Last Picture (Recall this 09/30/25 field) -Photo Taken Yes -Undermining/Tunneling Yes -Undermining/Tunneling Starts (O'clock 12 ) -Undermining/Tunneling Ends (O'clock) 12 -Maximum Distance (cm) 2.7 -Circular Undermining Yes -Exudate Amt Medium -Exudate Type Serosanguineous -Wound Margin Thickened & Rolled Under -Granulation Amt Small (1-33%) -Granulation Quality Crafton,Red -Necrosis Amt Large (67-100%) -Necrotic Tissue Type Adherent Slough -Structure Exposed None/Limited to Skin Breakdown -Texture (Andreea-wound Skin Appearance) Assessed -Moisture (Andreea-wound Skin Appearance) Assessed -Color (Andreea-wound Skin Appearance) Assessed -Temperature (Andreea-wound Skin No Abnormality Appearance) (Pt Warm) -Ulcer Cleansing Soap and Water -Foul Odor after Cleansing No -Anesthetic Used 5% Lidocaine Gel Point of measurement (cm from the medial 39 instep) Point of Measurement (cm from the medial 23.5 instep) WC - Nurse 2 - General Ulcer CM Notes Start: 09/18/25 09:53 Freq: Status: Active Protocol: Activity Type Activity Date Activity User E-sign Co-sign Detail Recorded Client Recorded Date Recorded By Document 09/18/25 10:13 MARK ANTHONY [id number] 09/18/25 10:16 JF Document 09/30/25 10:41 [id number] 09/30/25 10:45 09/18/25 09/30/25 10:13 10:41 Wound Center Nurse 2 #2 L Heel -Time 10:13 -Correct Patient Yes -Correct Side, Site, Position Yes -Correct Procedure Yes -Procedure Performed Yes -Type of Procedure Debridement -Clinical Debridement Muscle / Fascia -Tissue Removed Muscle -Post Debridement (cm) - Length 5.7 -Post Debridement (cm) - Width 4.3 -Post Debridement (cm) - Depth 0.4 -Total Square (Post) (cm) 24.51 -Area of Debridement (cm) - Length 5.7 -Area of Debridement (cm) - Width 4.3 -Total Square (Area) (cm) 24.51 -Tunneling No -Undermining/Tunneling No -Circular Undermining No -Wound/Ulcer Outcome Converted -Ulcer Cleansing Wound Cleanser -Foul Odor after Cleansing No -Bioengineered Tissue No -Bleeding Controlled with Pressure -Treatment Response Procedure Tolerated Well -Offloading Yes -Type of Offloading Surgical Shoe -Debridement - Muscle / Fascia, 1st Yes 20sq cm -Debridement, Muscle/Fascia, ea addt'l 1 20sq cm or part thereof #1 Sacral Cluster -Time 10:43 -Correct Patient Yes -Correct Side, Site, Position Yes -Correct Procedure Yes -Procedure Performed Yes -Type of Procedure Debridement -Clinical Debridement Subcutaneous -Tissue Removed Subcutaneous -Post Debridement (cm) - Length 2.0 -Post Debridement (cm) - Width 2.0 -Post Debridement (cm) - Depth 0.2 -Total Square (Post) (cm) 4.00 -Area of Debridement (cm) - Length 2.0 -Area of Debridement (cm) - Width 2.0 -Total Square (Area) (cm) 4.00 -Tunneling No -Undermining/Tunneling Yes -Maximum Distance #2 (cm) 2 -Circular Undermining Yes -Wound/Ulcer Outcome Not Healed -Ulcer Cleansing Rinsed/ Irrigated with Saline -Foul Odor after Cleansing No -Bioengineered Tissue No -Bleeding Controlled with Pressure -Treatment Response Procedure Tolerated Well -Assistive Device(s) Wheelchair -Pressure Reduction Wheelchair cushion, Mattress overlay -Debridement - Subq, 1st 20sq cm Yes Pain Scale: 0-10 Numeric Is Patient Pain Free? Yes Yes - Nurse 3 - General Ulcer D/C NN Start: 09/18/25 09:53 Freq: Status: Active Protocol: Activity Type Activity Date Activity User E-sign Co-sign Detail Recorded Client Recorded Date Recorded By Document 09/18/25 10:45 RB [id number] 09/18/25 10:47 RB Document 09/30/25 10:59 RB [id number] 09/30/25 11:00 RB 09/18/25 09/30/25 10:45 10:59 Wound Care Center Nurse 3 #2 L Heel -Ulcer Cleansing Rinsed/ Irrigated with Saline -Primary Dressing Applied AMD Dressing 4x4 -Other Dressing ABD -Primary Dressing Covered/Secured with Dry Gauze & Roll Gauze, Secured with Tape -AMD Dressing 4x4 1 #1 Sacral Cluster -Ulcer Cleansing Wound Cleanser -Negative Pressure Wound Therapy Continue -Pieces of Black Foam Inserted 1 -NPWT Application Charge NPWT & Debridement (nc ) -Foam Supply Charges Patient Supplied Dressing -Setting (mmHg) 125 -Negative Pressure is Continuous Andreea-Wound Care Barrier BLE -Tubular Bandage Single Layer -Size of Tubigrip Used Size E -Size E ($) 2 Treatment Response Procedure Tolerated Well Pain Scale: 0-10 Numeric Is Patient Pain Free? Yes Yes WC - Visit Discharge Discharge Condition Stable Stable Ambulatory Status Ambulatory Wheelchair Transportation Private Auto Private Auto Accompanied by Medication Reconcilliation completed & No No provided to patient/care provider Clinical Summary of Care Provided Yes Yes Assessment/Plan Assessment/Plan (1) Sacral decubitus ulcer, stage III: CODE(S): L89.153 - Pressure ulcer of sacral region, stage 3 PLAN: Sacral ulcer significantly improved status post treatment for the osteomyelitis. Patient is not interested in any flap reconstruction at this point as he does not believe he can follow the pressure offloading protocol and does not want surgery for this reason. I talked to the patient and his about flap surgery from me at [facility] or Shun Mendes here at the wound care center/[facility] if he changes his mind. Patient will continue to follow at the wound care center here for wound care. Patient is happy with the plan. For now continue 3 times per week wound VAC changes to the sacral wound and pressure offloading with pressure offloading bed and offloading exercises as best as possible. Patient will follow-up in the wound care center in 1 month
--- NOTE | 2025-10-01 08:44 | WC ---
PHOTO-SACRAL CLUSTER 09/30/25
[2025-10-02 12:33] VITALS: BP 132/87; PULSE 89; RESP 18; TEMP 35.8
--- NOTE | 2025-10-02 14:00 | PN.PCM_ITS ---
History of Present Illness Date of Service: 10/02/25 Chief Complaint: Follow-up on buttocks right and left heel wounds that have been going on for months. History of Wound: Chief Complaint: Follow-up on buttocks right and left heel wounds that have been going on for months. 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 He has not walked in several years. He is able to stand up to perform transfers, but does not move his ankle joints. He lays on his chair most of the day. And has developed a sacral wound that he has been following at the wound care center for as well as a left calcaneal wound in the setting of a recent hospitalization this past year, both of which he has been following here at the wound center with various advanced practice providers. Wound culture of left heel ulcer from 08/08/24 positive for MDRO Pseudomonas aeruginosa. Referral to infectious disease for treatment s/p antibiotic regimen. MRI of Pelvis 08/16/24 - Sacral decubitus ulcer with sacrococcygeal osteomyelitis. Treated by infectious disease with long-term course of IV antibiotics. Progress of Wound: The sacral ulcer with bone palpable but covered with granulation tissue and is beefy pink. There is undermining present, which is stable. The perineal ulcer (skin tear proximal to sacral ulcer) remains healed. Left medial heel appears improved with pink ulcer bed and much less non viable tissue present. He is sleeping on the low air loss mattress. 10 December 2024: Patient reports that he has not had any vascular workup for the lower extremity. He has a history of a DVT in the left lower extremity in the remote history and remains on Eliquis for anticoagulation. He reports episodic swelling in the left lower extremity that appears to be worsening the condition of the wound. He is not having any shortness of breath. He is not having any systemic signs or symptoms of infection. 17 December 2024: Doing well with wound care (VAC dressings) which started this past Tuesday. They have an appointment for ABIs and US for evaluation of the lower extremity. He has not gotten his xray of the foot yet, but is planning to get that soon (discussed). Labs obtained 14 Dec 2024 A1C 6.7 Prealb 27 Alb 3.4 Progress of Wound: Stable full-thickness wound left heel Subjective Subjective Patient is 85-year-old diabetic male presenting to clinic today follow-up evaluation left heel full-thickness wound. He has been doing dressing changes at home. His blood sugars well-controlled. Denies any trauma. Denies constitutional symptoms. No other pedal complaints at this time. Objective Data Objective Data Both wounds look better but the heel looks macerated. Scheduling him for an MRI and we will go from there. We will continue the wound VAC at 150 mL of meters mercury he is tolerating it well the wound VAC had to be removed last night because it lost its suction. Vital Signs: Vital Signs Temp Pulse Resp BP O2 Del Method 96.4 F L 89 18 132/87 H Room Air 10/02/25 12:33 10/02/25 12:33 10/02/25 12:33 10/02/25 12:33 10/02/25 12:33 Oxygen Delivery Method Room Air Lab / Micro Data Attestation: I reviewed the patient's lab results. Micro: Microbiology 09/02/25 10:50 Bone - Sacral Bone Gram Stain - Final 09/02/25 10:50 Bone - Sacral Bone Wound Culture - Preliminary Staphylococcus species Gram Positive Cocci Alpha Hemolytic Streptococcus Gram positive faye 08/28/25 11:20 Wound - Heel, Left Gram Stain - Final 08/28/25 11:20 Wound - Heel, Left Wound Culture - Final Corynebacterium striatum 08/28/25 11:20 Wound - Heel, Left Anaerobic Culture - Final No anaerobic bacteria isolated. Physical Exam Narrative Vascular: DP and PT pulses are palpable to left extremity. CFT is brisk. No erythema or drainage appreciated. Skin temperature is warm to warm from proximal ankle to distal digit without focal increase appreciated. Neurological: Light touch is intact. Patient does not respond to painful stimuli. Dermatological: Full-thickness wound to the left heel measuring at 6.1 x 3.9 x 0.3 cm. Wound base is fibrogranular nature. Negative probe to bone Excisional debridement down to including subcutaneous tissue, fascia and muscle with a number 5 mm dermal curette to the full-thickness wound to the left heel. Predebridement measurement was 5.8 x 3.6 x 0.2 cm. Postdebridement measurement is 6.1 x 3.9 x 0.3 cm. Musculoskeletal: No pain to palpation to full-thickness wound to left lower extremity. No pain with calf compression. Skin Skin Narrative: Open wounds on buttocks clean well marcated Wound Narrative: Stage II Debridement Note Debridement Note Wound Grade/Stage: Stage IV Debridement Free Text: Excisional debridement down to including subcutaneous tissue, fascia and muscle with a number 5 mm dermal curette to the full- thickness wound to the left heel. Predebridement measurement was 5.8 x 3.6 x 0.2 cm. Postdebridement measurement is 6.1 x 3.9 x 0.3 cm. Post-Debridement Measurements and Additional Note: Post-Debridement Measurements/Treatment - Nurse 1 - General Ulcer Assessment Start: 09/18/25 09:53 Freq: Status: Active Protocol: CHEL Activity Type Activity Date Activity User E-sign Co-sign Detail Recorded Client Recorded Date Recorded By Document 09/18/25 09:54 TS [id number] 09/18/25 09:59 TS Document 09/30/25 10:24 TS [id number] 09/30/25 10:32 TS Document 10/02/25 12:33 RB [id number] 10/02/25 12:37 RB 09/18/25 09/30/25 10/02/25 09:54 10:24 12:33 - Today's Visit Information Type of service Follow-up Visit Follow-up Visit Follow-up Visit (Physician/[employer] (Physician/[employer]ER (Physician/[employer]ER ) ) ) Arrival Mode Wheelchair Wheelchair Wheelchair Transfer Assistance None Patient Identification Verified (Name & Yes Yes Yes ) Patient Requires Transmission-Based No No No Precautions Safety Precautions Fall Prevention Fall Prevention Vital Signs Temperature (97.8 F-99.1 F) 96.4 F L 97.1 F L 96.4 F L Temperature Source Temporal Temporal Temporal Pulse Rate (60-100) 83 83 89 Pulse Location Monitor Monitor Monitor Respiratory Rate (12-18) 17 16 18 Respiratory rate source Observation Observation Observation Oxygen Delivery Method Room Air Room Air Room Air Blood Pressure (90/60-120/80) 123/49 H 124/75 H 132/87 H Blood Pressure Mean (mm Hg) 73 91 102 Source Monitor Monitor Monitor Position Sitting Sitting Sitting Blood Pressure Location Left Arm Right Arm Left Arm History Since Last Visit- (Skip if this is Patient's initial visit) Have you changed medications since your No No No last visit? Any new allergies or adverse reactions No No No Had a fall/change in ADL's that may No No No increase risk of falls Signs or symptoms of abuse and/or No No neglect since last visit Have you been in the hospital since your No No No last visit? Has dressing in place as prescribed Yes Yes Yes Has compression in place as prescribed N/A N/A Yes Has offloadiing in place as prescribed N/A No N/A Experienced any changes in pain level or No No No management Left Footwear Regular Shoe Regular Shoe Right Footwear Surgical Shoe Regular Shoe with pressure relief insole Pain Scale: 0-10 Numeric Is Patient Pain Free? Yes Yes Yes WC - Nurse 1 - General Ulcer Measurement Start: 09/18/25 09:53 Freq: Status: Active Protocol: Activity Type Activity Date Activity User E-sign Co-sign Detail Recorded Client Recorded Date Recorded By Document 09/18/25 09:54 TS [id number] 09/18/25 09:59 TS Document 09/30/25 10:24 TS [id number] 09/30/25 10:32 TS Document 10/02/25 12:33 RB [id number] 10/02/25 12:37 RB 09/18/25 09/30/25 10/02/25 09:54 10:24 12:33 Wound Center Nurse 1 #2 L Heel -Combined with other wound No No -Current Size (cm) - Length 5.5 4.5 -Current Size (cm) - Width 4 5.5 -Current Size (cm) - Depth 0.3 0.3 -Total Square Cm 22.0 24.75 -Date of Last Picture (Recall this 09/18/25 field) -Photo Taken Yes -Tunneling No -Undermining/Tunneling No -Circular Undermining No -Exudate Amt Medium Large -Exudate Type Serosanguineous Serosanguineous -Wound Margin Distinct, Thickened & Outline Rolled Under Attached -Granulation Amt Small (1-33%) Large (67-100%) -Granulation Quality [place],Red [place] -Slough/Fibrin Yes Yes -Necrosis Amt Medium (34-66%) Medium (34-66%) -Necrotic Tissue Type Adherent Slough Adherent Slough -Structure Exposed N/A -Texture (Andreea-wound Skin Appearance) Assessed Assessed -Moisture (Andreea-wound Skin Appearance) Assessed Assessed, Maceration -Color (Andreea-wound Skin Appearance) Assessed Assessed -Temperature (Andreea-wound Skin No Abnormality No Abnormality Appearance) (Pt Warm) (Pt Warm) -Tenderness on Palpation (Andreea-wound No Skin Appearance) -Ulcer Cleansing Soap and Water Wound Cleanser -Foul Odor after Cleansing No No -Anesthetic Used 5% Lidocaine 5% Lidocaine Gel Gel #1 Sacral Cluster -Combined with other wound No -Current Size (cm) - Length 2.8 -Current Size (cm) - Width 1 -Current Size (cm) - Depth 2.5 -Total Square Cm 2.8 -Date of Last Picture (Recall this 09/30/25 field) -Photo Taken Yes -Undermining/Tunneling Yes -Undermining/Tunneling Starts (O'clock 12 ) -Undermining/Tunneling Ends (O'clock) 12 -Maximum Distance (cm) 2.7 -Circular Undermining Yes -Exudate Amt Medium -Exudate Type Serosanguineous -Wound Margin Thickened & Rolled Under -Granulation Amt Small (1-33%) -Granulation Quality [place],Red -Necrosis Amt Large (67-100%) -Necrotic Tissue Type Adherent Slough -Structure Exposed None/Limited to Skin Breakdown -Texture (Andreea-wound Skin Appearance) Assessed -Moisture (Andreea-wound Skin Appearance) Assessed -Color (Andreea-wound Skin Appearance) Assessed -Temperature (Andreea-wound Skin No Abnormality Appearance) (Pt Warm) -Ulcer Cleansing Soap and Water -Foul Odor after Cleansing No -Anesthetic Used 5% Lidocaine Gel Point of measurement (cm from the medial 39 instep) Point of Measurement (cm from the medial 23.5 instep) WC - Nurse 2 - General Ulcer CM Notes Start: 09/18/25 09:53 Freq: Status: Active Protocol: Activity Type Activity Date Activity User E-sign Co-sign Detail Recorded Client Recorded Date Recorded By Document 09/18/25 10:13 MARK ANTHONY [id number] 09/18/25 10:16 Document 09/30/25 10:41 GM [id number] 09/30/25 10:45 GM Document 10/02/25 12:50 GM(2) [id number] 10/02/25 12:51 GM(2) 09/18/25 09/30/25 10/02/25 10:13 10:41 12:50 Wound Center Nurse 2 #2 L Heel -Time 10:13 12:50 -Correct Patient Yes Yes -Correct Side, Site, Position Yes Yes -Correct Procedure Yes Yes -Procedure Performed Yes Yes -Type of Procedure Debridement Debridement -Clinical Debridement Muscle / Fascia Muscle / Fascia -Tissue Removed Muscle Muscle -Post Debridement (cm) - Length 5.7 6.1 -Post Debridement (cm) - Width 4.3 3.9 -Post Debridement (cm) - Depth 0.4 0.3 -Total Square (Post) (cm) 24.51 23.79 -Area of Debridement (cm) - Length 5.7 6.1 -Area of Debridement (cm) - Width 4.3 3.9 -Total Square (Area) (cm) 24.51 23.79 -Tunneling No No -Undermining/Tunneling No No -Circular Undermining No No -Wound/Ulcer Outcome Converted Not Healed -Ulcer Cleansing Wound Cleanser Rinsed/ Irrigated with Saline -Foul Odor after Cleansing No No -Bioengineered Tissue No No -Bleeding Controlled with Pressure Pressure -Treatment Response Procedure Procedure Tolerated Well Tolerated Well -Offloading Yes -Type of Offloading Surgical Shoe -Debridement - Muscle / Fascia, 1st Yes Yes 20sq cm -Debridement, Muscle/Fascia, ea addt'l 1 1 20sq cm or part thereof #1 Sacral Cluster -Time 10:43 -Correct Patient Yes -Correct Side, Site, Position Yes -Correct Procedure Yes -Procedure Performed Yes -Type of Procedure Debridement -Clinical Debridement Subcutaneous -Tissue Removed Subcutaneous -Post Debridement (cm) - Length 2.0 -Post Debridement (cm) - Width 2.0 -Post Debridement (cm) - Depth 0.2 -Total Square (Post) (cm) 4.00 -Area of Debridement (cm) - Length 2.0 -Area of Debridement (cm) - Width 2.0 -Total Square (Area) (cm) 4.00 -Tunneling No -Undermining/Tunneling Yes -Maximum Distance #2 (cm) 2 -Circular Undermining Yes -Wound/Ulcer Outcome Not Healed -Ulcer Cleansing Rinsed/ Irrigated with Saline -Foul Odor after Cleansing No -Bioengineered Tissue No -Bleeding Controlled with Pressure -Treatment Response Procedure Tolerated Well -Assistive Device(s) Wheelchair -Pressure Reduction Wheelchair cushion, Mattress overlay -Debridement - Subq, 1st 20sq cm Yes Pain Scale: 0-10 Numeric Is Patient Pain Free? Yes Yes Yes - Nurse 3 - General Ulcer D/C NN Start: 09/18/25 09:53 Freq: Status: Active Protocol: Activity Type Activity Date Activity User E-sign Co-sign Detail Recorded Client Recorded Date Recorded By Document 09/18/25 10:45 RB [id number] 09/18/25 10:47 RB Document 09/30/25 10:59 RB [id number] 09/30/25 11:00 RB Document 10/02/25 13:03 TS [id number] 10/02/25 13:12 TS 09/18/25 09/30/25 10/02/25 10:45 10:59 13:03 Wound Care Center Nurse 3 #2 L Heel -Ulcer Cleansing Rinsed/ Rinsed/ Irrigated with Irrigated with Saline Saline -Primary Dressing Applied AMD Dressing AMD Dressing 4x4 4x4 -Other Dressing ABD kerlix -Primary Dressing Covered/Secured with Dry Gauze & Secured with Roll Gauze, Tape Secured with Tape -AMD Dressing 4x4 1 1 #1 Sacral Cluster -Ulcer Cleansing Wound Cleanser -Negative Pressure Wound Therapy Continue -Pieces of Black Foam Inserted 1 -NPWT Application Charge NPWT & Debridement (nc ) -Foam Supply Charges Patient Supplied Dressing -Setting (mmHg) 125 -Negative Pressure is Continuous Andreea-Wound Care Barrier BLE -Tubular Bandage Single Layer Single Layer -Size of Tubigrip Used Size E Size E -Size E ($) 2 1 Treatment Response Procedure Tolerated Well Pain Scale: 0-10 Numeric Is Patient Pain Free? Yes Yes Yes - Visit Discharge Discharge Condition Stable Stable Stable Ambulatory Status Ambulatory Wheelchair Wheelchair Transportation Private Auto Private Auto Private Auto Accompanied by Medication Reconcilliation completed & No No No provided to patient/care provider Clinical Summary of Care Provided Yes Yes Yes Additional Wound Wound Grade/Stage: Stage II Tissue Removed: Macerated tissue and fibrin Assessment/Plan Assessment/Plan (1) Non-pressure chronic ulcer of other part of left foot with fat layer exposed: CODE(S): L97.522 - Non-pressure chronic ulcer of other part of left foot with fat layer exposed PLAN: Patient was examined and evaluated. All findings were discussed with the patient. All questions were answered to the patient's satisfaction. Excisional debridement down to including subcutaneous tissue, fascia and muscle with a number 5 mm dermal curette to the full-thickness wound to the left heel. Predebridement measurement was 5.8 x 3.6 x 0.2 cm. Postdebridement measurement is 6.1 x 3.9 x 0.3 cm. The full-thickness wounds were cleaned and patted dry. Saline moist gauze dry sterile dressing c ompression wrap were donned. Patient will change the dressing with Hydrofera Blue and change it when the indicator turns white. The continue to offload as discussed. They will continue antibiotics per infectious disease recommendation. Follow-up at the wound care center with Dr. Casas in 2 week. (2) Chronic painful diabetic polyneuropathy: CODE(S): E11.42 - Type 2 diabetes mellitus with diabetic polyneuropathy
--- NOTE | 2025-10-18 12:41 | WC ---
Dr. Sewell transfers over care to Ruba CLEMENTE as of 10/14/25
== END 2025-10-16 23:59 | disposition home or self-care (01) ==
LOC: WC 12:30
PROVIDERS: PCP Family Medicine; Referring Provider Family Medicine; Visit Provider Physician Assistant
DX: E11.621 Type 2 diabetes mellitus with foot ulcer (principal); L89.154 Pressure ulcer of sacral region, stage 4; L97.523 Non-pressure chronic ulcer of other part of left foot with necrosis of muscle; M46.28 Osteomyelitis of vertebra, sacral and sacrococcygeal region; E11.42 Type 2 diabetes mellitus with diabetic polyneuropathy; Z79.2 Long term (current) use of antibiotics; Z86.718 Personal history of other venous thrombosis and embolism; Z79.01 Long term (current) use of anticoagulants
CPT/HCPCS: 11042; 11043; 11046